=== PATIENT | male | born 1950 | race Caucasian/White ===

== ENCOUNTER → 2023-10-20 07:20 | Outpatient (REF) | payer MEDICARE, SELFPAY | LOC: DHCBC/DCA 07:20 | PROVIDERS: ATTENDING PHYSICIAN Internal Medicine; FAMILY PHYSICIAN Internal Medicine | DX: I50.21 Acute systolic (congestive) heart failure (principal) | CPT/HCPCS: 78452; 93017; A9500; J2785 ==

== ENCOUNTER → 2023-10-29 12:56 | Outpatient (REF) | payer MEDICARE, SELFPAY ==
--- NOTE | 2023-10-29 13:41 | CARDSERVLU ---
Echocardiogram with [facility] completed after protocol screening completed. Allergies verified.
Patent IV site: Right median antecubital 22 G PC inserted first attempt
IV site flushed with 0.9% NaCl pre and post administration.
Diluted bolus method utilized to enhance visualization of ventricular redman.
Total volume given: ___4_ mL
Patient tolerated all procedures well without complications.
Heplock D/C ed at 1340, site clear, no redness, no edema. Pressure held for few minutes as pt on anticoagulants, no bleeding, 2x2 applied and taped. Pt offers no complaints.
== END ==
LOC: RCS 12:56
PROVIDERS: ATTENDING PHYSICIAN Internal Medicine; FAMILY PHYSICIAN Internal Medicine
DX: I50.21 Acute systolic (congestive) heart failure (principal)
CPT/HCPCS: 93308; 93321; 93325; Q9950

== ENCOUNTER → 2023-11-16 12:48 | Outpatient (REF) | payer MEDICARE, SELFPAY | LOC: RAD 12:48 | PROVIDERS: ATTENDING PHYSICIAN Internal Medicine; FAMILY PHYSICIAN Internal Medicine | DX: R09.89 Other specified symptoms and signs involving the circulatory and respiratory systems (principal); I50.21 Acute systolic (congestive) heart failure; R06.09 Other forms of dyspnea | CPT/HCPCS: 93880 ==

== ENCOUNTER → 2023-11-20 06:37 | Outpatient (REF) | payer MEDICARE, SELFPAY | LOC: RAD 06:37 | PROVIDERS: ATTENDING PHYSICIAN Internal Medicine; FAMILY PHYSICIAN Internal Medicine | DX: R06.09 Other forms of dyspnea (principal); I35.0 Nonrheumatic aortic (valve) stenosis; F17.210 Nicotine dependence, cigarettes, uncomplicated | CPT/HCPCS: 76770 ==

== ENCOUNTER 2024-01-21 08:10 | Emergency (ER) | payer MEDICARE, SELFPAY ==
[2024-01-21 08:14] VITALS: BP 135/64
[2024-01-21 08:22] VITALS: BMI 21.9
--- NOTE | 2024-01-21 08:34 | ED.GENMED ---
History of Present Illness
General
Chief Complaint: Dizziness
Source: patient, records and spouse
Time Seen by Provider: 01/21/24 08:22
Travel History
Have you had any contact with someone who has COVID-19?: No
Do you have any symptoms of coronavirus? Fever > 100 degrees, chills, cough, shortness of breath, sore throat, loss of taste or smell, muscle aches, or headache?: No
History of Present Illness
History of Present Illness:
This patient is a 73-year-old male presents emergency department with complaints of feeling 'fuzzy' also described as 'dizzy' for the last month. This has been persistent and he came in today because he was frustrated with continued symptoms and
wanted to get checked out. He denies diplopia or visual changes, numbness, tingling, focal weakness, difficulty ambulating, a sense of movement or spinning, trouble swallowing. He says overall he just does not feel right and has difficulty further
specified. He denies associated chest pain or pressure, back pain, neck pain, headache. He denies palpitations. He notes that he does have dyspnea on exertion with stairs but he is unclear how new this is. He denies associated leg swelling,
fever, chills but he notes a recent episode of rhinorrhea and occasionally productive cough. He also notes a 15 pound weight loss over the last 6 months or so. He denies urinary symptoms.
Past History
Past History
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
ED Past Surgical History: Orthopedic (right heel fracture 2009) and Tonsilectomy
Social History
Tobacco: Smoker
Alcohol: Daily
Drug: None
Personal:
Living: with family
Family History
Family History: Other (reviewed and noncontributory)
Phy Exam
Physical Exam
Physical Exam:
GENERAL: Alert , in no apparent distress
EYE: pupils equal and reactive, no nystagmus, EOMI, no photophobia
NECK: Supple, no significant adenopathy.
ENT: o/p clr, mmm.
CARDIAC: Regular rate and rhythm .
LUNGS: Clear breath sounds bilaterally, no acute respiratory distress, no wheezes/rales/rhonchi
ABDOMEN: Soft, without focal tenderness, no r/g, no cvat
NEUROLOGICAL: Alert and oriented, no focal neuro deficits, NIH equal to 0, [id number] normal, motor 5 out of 5, sensory intact to light touch, cranial nerves II through XII intact
SKIN: Warm and dry, skin intact.
MUSCULOSKELETAL: No edema, well perfused.
PSYCH: Normal and appropriate interaction.
Course
Orders/Labs/Results
Orders:
Orders
01/21/24 08:33
Electrocardiogram (*1) Urgent
Reason for Study: Other
Other Reason for Exam: sepsis
CT Head W/o Iv Contrast Stat
Comment:
Reason For Exam: dizzy
Cardiac Monitoring- Treatment ONCE
EKG- Treatment ONCE
Urinalysis Reflex To Culture Urgent
CR Chest - 2 Views Urgent
Comment:
Reason For Exam: cough, duval
01/21/24 08:59
Alcohol Urgent
Complete Blood Count/With Diff Urgent
Comprehensive Metabolic Panel Urgent
Lactic Acid Q4H
Comment: CANCEL 2nd LACTIC ACID IF 1st LACTIC ACID IS LESS THAN 2
NT-proBNP Urgent
Troponin I Urgent
Blood Culture Q30M
KEVIN Source: Blood/Venous
Specimen Description:
01/21/24 09:00
Influenza A+B Rapid Molecular Urgent
KEVIN Source: Nasal Swab
Specimen Description:
01/21/24 09:01
Blood Culture Q30M
KEVIN Source: Blood/Venous
Specimen Description:
Abnormal Lab Results
01/21/24
08:59
RBC 4.69 L 10^6/uL
(4.70-6.10)
MCH 31.1 H pg
(27.0-31.0)
Absolute Neuts (auto) 8.2 H 10^3/uL
(1.4-6.5)
Absolute Lymphs (auto) 0.7 L 10^3/uL
(1.2-3.4)
Absolute Monos (auto) 0.9 H 10^3/uL
(0.1-0.6)
Neutrophils % 79.5 H %
(42.2-75.2)
Lymphocytes % 7.2 L %
(20.5-51.1)
Sodium 132 L mmol/L
(135-145)
Potassium 5.4 H mmol/L
(3.5-5.1)
BUN 21 H mg/dl
(9-20)
Glucose 280 H mg/dl
(70-99)
01/21/24 08:59
01/21/24 08:59
Vital Signs
Initial and Last Documented VS:
Initial Vital Signs
Temp Pulse Resp BP Pulse Ox
97.8 F 72 18 135/64 96
01/21/24 08:14 01/21/24 08:14 01/21/24 08:14 01/21/24 08:14 01/21/24 08:14
Last Documented Vital Signs
Temp Pulse Resp BP Pulse Ox
97.8 F 68 25 119/57 94
01/21/24 08:14 01/21/24 09:23 01/21/24 09:23 01/21/24 09:45 01/21/24 09:23
*Critical Care Note
Total Time (30-74mins, 75-104mins- exclusive of procedures): Not Applicable
Update Note
Update Note:
Patient presents to the Emergency Department with dizziness and feeling not right
Number and Complexity of Problems Addressed at the Encounter
� Chronic conditions affecting care:
� Acute Exacerbation and/or Progression of Chronic Illness:
� Differential Diagnosis includes: But not limited to UTI, pneumonia, typical ACS, heart failure, etc. etc.
Amount and/or Complexity of Data to be Reviewed and Analyzed
� I performed an independent evaluation of and my interpretation is:
EKG: Read by me, normal sinus rhythm, normal rate, normal axis, no acute ischemia
CT:1. No definite acute intracranial process.
2. Moderate diffuse volume loss and moderate leukoaraiosis.
3. Evidence of multiple areas of previous lacunar infarcts.
4. Moderate chronic sinus disease.
Xrays: Chest x-ray read by me no acute infiltrate, no pneumothorax, no acute abnormalities noted
Laboratory Studies: Generally unremarkable
Other:
� Review of other/old records reveals: Patient was admitted late last year with an acute exacerbation of heart failure noted to have mild aortic stenosis at that time as well as urinary retention requiring twice daily
self-catheterization. Echocardiogram October 2023 notes an EF of 55% and mild .
� Clinical information was obtained by an independent historian: who is at bedside
� Prescriptions/Medications Considered but not given:
� Further testing considered but not performed:
Risk of Complications and/or Morbidity or Mortality of Patient Management
� Social determinants of health affecting care:
� Discussion with other providers (PCP, Hospitalists, Consultants, etc):
� Escalation of care including admission/observation vs risk of discharge considered: 11:12 AM patient unable to provide a urine here, and I think suspicion for a urine related cause of his symptoms is very unlikely, he will have
tested as an outpatient. Patient is comfortable, no new complaints. No specific etiology for his complaints noted here with workup, aware of importance of follow-up and reasons return to the ER. He does not demonstrate signs or symptoms to
suggest ACS, PE, dissection, etc. etc. Very comfortable, no distress, normal respirations, etc. Given patient's chronicity of complaints including a 15 pound weight loss, he understands how critical a further evaluation as an outpatient is.
ED Attending Note
-
Portions of this chart may have been created with voice recognition software.� Occasional wrong word or��sound alike� substitutions may have occurred due to the inherent limitations of voice recognition software.
Discharge Plan
Departure
Patient Disposition: Home (Routine Discharge)
Date of Disposition: 01/21/24
Time of Disposition: 11:14
Patient with high blood pressure during this ER visit?: Yes
Condition: Good
Discharge Problem:
Dizziness
Instructions: Dizziness, Nonvertigo, (DC), BLOOD PRESSURE
Prescriptions:
No Action
enalapril maleate 20 MG tablet
20 mg PO BID
clopidogrel 75 MG tablet
75 mg PO QPM
atorvastatin 80 mg Tablet
80 mg PO QPM
tamsulosin 0.4 mg capsule
0.4 mg PO DAILY Qty: 90 3RF
spironolactone 25 mg Tablet
25 mg PO QPM
insulin NPH isoph U-100 human 100 unit/mL Suspension
26 unit SC DAILY
insulin NPH isoph U-100 human 100 unit/mL Suspension
16 unit SC QPM
metoprolol succinate 25 mg Tablet Extended Release 24 Hr
25 mg PO QPM
insulin lispro [Humalog U-100 Insulin] 100 unit/mL Solution
0 sliding scale dose SC DIRECTED PRN (Reason: diabetes)
Patient Comments:
01/21/2024, pt. uses this med. on a sliding scale ACPRN; pt. does not know what their sliding scale is.
ezetimibe 10 mg Tablet
10 mg PO DAILY
Patient Comments:
01/21/2024, pt. unsure if he is taking this med. or not; filled on 01/05/2024 for a 30-day supply.
dapagliflozin propanediol [Farxiga] 10 mg Tablet
10 mg PO QPM
Clear Eyes
1 drp BOTH EYES DAILYPRN PRN (Reason: eye irritation)
finasteride 5 mg tablet
5 mg PO QPM
Referrals:
Amelia Broussard MD [Family Provider] - Next open appointment
Activity Restrictions/Additional Instructions:
IF YOU DEVELOP CHEST PAIN OR PRESSURE, TROUBLE BREATHING, FEVER, VOMITING, CHANGE IN VISION, WEAKNESS OF AN ARM OR LEG, DIFFICULTY WALKING, OR OTHER WORRISOME SIGNS, PLEASE RETURN TO THE ER IMMEDIATELY.
Interventions
Interventions:
*Risk Screen - Suicide Last Done: 01/21/24 08:50
*General Assessment Last Done: 01/21/24 08:50
*Neglect/Abuse Screening Last Done: 01/21/24 08:50
*ED COVID-19 Vaccine History Last Done: 01/21/24 08:14
ED- Neurological Assessment Last Done: 01/21/24 09:15
ED- Cardiac Assessment Last Done: 01/21/24 09:15
Discharge Date and Time
Print Language: TUNISIAN
[2024-01-21 09:11] LABS: % Basophils 1.2 % (0-2); % Eosinophils 3.6 % (0-6); % Immature Granulocytes 0.2 % (0-0.5); % Lymphocytes 7.2 % (20.5-51.1); % Monocytes 8.3 % (1.7-9.3); % Neutrophils 79.5 % (42.2-75.2); Absolute Basophils 0.1 10^3/uL (0-0.2); Absolute Eosinophils 0.4 10^3/uL (0-0.7); Absolute Lymphocytes 0.7 10^3/uL (1.2-3.4); Absolute Monocytes 0.9 10^3/uL (0.1-0.6); Absolute Neutrophils 8.2 10^3/uL (1.4-6.5); Hematocrit 42.1 % (39.0-52.0); Hemoglobin 14.6 g/dL (13.0-18.0); Mean Corp Hgb Conc. 34.7 g/dL (33.0-37.0); Mean Corpuscular Hgb 31.1 pg (27.0-31.0); Mean Corpuscular Volume 89.8 fL (80.0-94.0); Mean Platelet Volume 9.4 fL (7.4-10.4); Nucleated Red Blood Cells % 0 % (-); Platelet Count 203 10^3/uL (130-400); Red Blood Cell Count 4.69 10^6/uL (4.70-6.10); Red Cell Dist. Width 13.9 % (11.5-14.5); White Blood Cell Count 10.3 10^3/uL (4.8-10.8)
[2024-01-21 09:22] LABS: ALT (SGPT) 44 U/L (0-50); AST (SGOT) 36 U/L (17-59); Albumin 4.3 g/dl (3.5-5.0); Alkaline Phosphatase 61 U/L (38-126); Blood Urea Nitrogen 21 mg/dl (9-20); Calcium 9.4 mg/dl (8.4-10.2); Carbon Dioxide 22 mmol/L (22-30); Chloride 102 mmol/L (98-107); Estimated Creatinine Clearance 58 ml/min; Glucose 280 mg/dl (70-99); Potassium 5.4 mmol/L (3.5-5.1); Sodium 132 mmol/L (135-145); Total Bilirubin 0.8 mg/dl (0.2-1.3); eGFR > 60.00
[2024-01-21 09:24] LABS: Lactic Acid 1.2 mmol/L (0.7-2.0)
[2024-01-21 09:27] LABS: Alcohol None Detected
[2024-01-21 09:29] LABS: NT-proBNP 717 pg/ml; Troponin I 0.014 ng/ml
--- NOTE | 2024-01-21 09:39 | PHANOTE ---
01/21/2024, [facility], spoke to pt. to obtain their med. history; pt. unsure if he is taking Ezetimibe 10 mg daily or not; filled on 01/05/2024 for a 30-day supply per pharmacy fill data.
[2024-01-21 09:45] VITALS: BP 119/57
[2024-01-21 10:00] VITALS: BP 117/56
[2024-01-21 11:00] VITALS: BP 128/59
== END 2024-01-21 11:32 | disposition home or self-care (01) ==
LOC: EMR 08:10
PROVIDERS: EMERGENCY PHYSICIAN Emergency Medicine; FAMILY PHYSICIAN Internal Medicine
DX: R42 Dizziness and giddiness (principal); F17.200 Nicotine dependence, unspecified, uncomplicated; I10 Essential (primary) hypertension
CPT/HCPCS: 99285; 70450; 71046; 80053; 82077; 83605; 83880; 84484; 85025; 87040; 87502; 93005

== ENCOUNTER → 2024-01-28 08:43 | Outpatient (REF) | payer MEDICARE, SELFPAY | LOC: RAD 08:43 | PROVIDERS: ATTENDING PHYSICIAN Internal Medicine Critical Care Medicine; FAMILY PHYSICIAN Internal Medicine | DX: R93.89 Abnormal findings on diagnostic imaging of other specified body structures (principal); J44.9 Chronic obstructive pulmonary disease, unspecified | CPT/HCPCS: 71250 ==

== ENCOUNTER 2024-01-30 13:30 | Inpatient (IN) | payer MEDICARE, SELFPAY ==
[2024-01-30] VITALS (10 sets, daily range): BP systolic 111–151; BP diastolic 48–81; BMI 20.1
--- NOTE | 2024-01-30 09:44 | ED.GENMED ---
History of Present Illness
General
Chief Complaint: Breathing Problem
Source: patient and family
Exam Limitations: none
Time Seen by Provider: 01/30/24 09:19
Nursing documentation reviewed up to this point in time: agreed with
Travel History
Have you had any contact with someone who has COVID-19?: No
Do you have any symptoms of coronavirus? Fever > 100 degrees, chills, cough, shortness of breath, sore throat, loss of taste or smell, muscle aches, or headache?: No
History of Present Illness
History of Present Illness:
73 y/o M with a history of insulin-dependent diabetes, hypertension, daily alcohol use, heart failure with a preserved EF, smoking who presents for shortness of breath over the last 3 or 4 days that is worse than usual. Patient was seen here on 5�2
and at that time was complaining of feeling fuzzy in his head/dizzy which was a symptom he had for over a month. He is not really eating well and has had some mild weight loss. Patient has had lower energy and dyspnea on exertion. His results
were really unremarkable, patient was discharged home. He had previously had an hospitalization in August 2023 for pneumonia/COPD and heart failure. He was followed by a patrol officer at that time and followed up in September. He was supposed to
have PFTs and a chest CT which he never got done because of a in the family. Patient has had an ongoing cough, he had it when he was in the ER on 5�2 but it seems much worse and so his called and make an follow-up appointment with the
patrol officer next week. In the meantime they did get the chest CT done a few days ago here. Patient is unaware of the results.
He has had worsening dyspnea over the last 3 days. His has been giving him nebulizer treatments a few times a day which helps mildly. He is not really bringing up sputum. He has not had a fever or chills, sore throat, nausea or vomiting. He
has a little diarrhea.
Patient is not having any pleuritic chest pain but is having some exertional dyspnea and really felt like the dyspnea is getting worse so that is why he is here. This reminds his of the time he had pneumonia
Patient has a pulse oximeter at home and has had readings in the low 90s
Past History
Past History
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
ED Past Surgical History: Orthopedic (right heel fracture 2009) and Tonsilectomy
Social History
Tobacco: Smoker
Alcohol: Daily
Drug: None
Personal:
Living: with family
Family History
Family History: Other (reviewed and noncontributory)
Review of Systems
Review of Systems
Allergies reviewed?: Yes
All Other Systems: Not applicable
Phy Exam
Physical Exam
Physical Exam:
GENERAL: Alert , in no apparent distress
EYE: pupils equal and reactive
NECK: Supple
ENT: o/p clr, mmm.
CARDIAC: Regular rate and rhythm .no edema
LUNGS: diminished throughout, no wheezing or rales but a wet sounding cough; + tachpnea 30s
ABDOMEN: Soft, without focal tenderness, no r/g, no cvat, normal bowel sounds
NEUROLOGICAL: Alert and oriented, no focal neuro deficits
SKIN: Warm and dry, skin intact.
MUSCULOSKELETAL: No edema, well perfused. neg marylou's sign
PSYCH: Normal and appropriate interaction.
Scores
Heart Failure Risk
Heart Failure Risk Score: Not Applicable
Course
Orders/Labs/Results
Orders:
Orders
01/30/24 09:33
Ipratropium/Albuterol Sulfate [Duoneb] 3 ml INH R NOW STA
01/30/24 09:34
Electrocardiogram (*1) Urgent
Reason for Study: Shortness of Breath
EKG- Treatment ONCE
CR Chest - 2 Views Urgent
Comment:
Reason For Exam: sob
01/30/24 10:09
Basic Metabolic Panel Urgent
COVID-19 Antigen Urgent
Source: Nasal Swab
Complete Blood Count/With Diff Urgent
NT-proBNP Urgent
Troponin I Urgent
Influenza A+B Rapid Molecular Urgent
EKVIN Source: Nasal Swab
Specimen Description:
01/30/24 11:24
Azithromycin 500 mg/250 ml [Zithromax Infusion] 500 mg in 250 ml IV NOW
CefTRIAXone [Rocephin] 1,000 mg IV NOW STA
Abnormal Lab Results
01/30/24
10:09
WBC 16.8 H 10^3/uL
(4.8-10.8)
Abs Immat Gran (auto) 0.1 H 10^3/uL
(0-0.05)
Absolute Neuts (auto) 14.2 H 10^3/uL
(1.4-6.5)
Absolute Lymphs (auto) 0.8 L 10^3/uL
(1.2-3.4)
Absolute Monos (auto) 1.4 H 10^3/uL
(0.1-0.6)
Neutrophils % 84.7 H %
(42.2-75.2)
Lymphocytes % 4.9 L %
(20.5-51.1)
Sodium 134 L mmol/L
(135-145)
BUN 28 H mg/dl
(9-20)
01/30/24 10:09
01/30/24 10:09
Vital Signs
Initial and Last Documented VS:
Initial Vital Signs
Temp Pulse Resp BP Pulse Ox
97.9 F 85 22 120/62 91
01/30/24 09:01 01/30/24 09:01 01/30/24 09:01 01/30/24 09:01 01/30/24 09:01
Last Documented Vital Signs
Temp Pulse Resp BP Pulse Ox
97.9 F 98 17 129/60 88
01/30/24 09:01 01/30/24 12:00 01/30/24 12:00 01/30/24 12:00 01/30/24 12:00
MDM/Problems Addressed
Differential Diagnosis Includes:
pna, copd
MDM/Problems Addressed:
73 y/o M smoker, alcohol abuse, NIDDM, mild chf not on lasix; 10 day cough, worse with sob x 3 days, pulse ox at home 90% on RA no h/o O2; no chest pain; had outpatient chest ct a few days ago suggestive of opacity LLL; today's pulse o 89% on RA
for me, put on 2L, tachypneic, diminished but no wheezes, + cough; wbc 16, cxr indep [id number] by me looks progressed with LLL pna;
will admit given ongonig hypoxia and tahcypnea
iv abx ordered
*Critical Care Note
Total Time (30-74mins, 75-104mins- exclusive of procedures): Not Applicable
ED Attending Note
-
Portions of this chart may have been created with voice recognition software.� Occasional wrong word or��sound alike� substitutions may have occurred due to the inherent limitations of voice recognition software.
Discharge Plan
Departure
Patient Disposition: Admit
Date of Disposition: 01/30/24
Time of Disposition: 11:25
Admit to: Med/Surg
Presentation/result/management discussed w/ accepting MD/DO: Hospitalist
Condition: Fair
Covid-19: Not Applicable
Discharge Problem:
Hypoxia, Pneumonia
Prescriptions:
No Action
enalapril maleate 20 MG tablet
20 mg PO BID
clopidogrel 75 MG tablet
75 mg PO QPM
atorvastatin 80 mg Tablet
80 mg PO QPM
tamsulosin 0.4 mg capsule
0.4 mg PO DAILY Qty: 90 3RF
spironolactone 25 mg Tablet
25 mg PO QPM
insulin NPH isoph U-100 human 100 unit/mL Suspension
26 unit SC DAILY
insulin NPH isoph U-100 human 100 unit/mL Suspension
16 unit SC QPM
metoprolol succinate 25 mg Tablet Extended Release 24 Hr
25 mg PO QPM
insulin lispro [Humalog U-100 Insulin] 100 unit/mL Solution
0 sliding scale dose SC DIRECTED PRN (Reason: diabetes)
Patient Comments:
01/21/2024, pt. uses this med. on a sliding scale ACPRN; pt. does not know what their sliding scale is.
ezetimibe 10 mg Tablet
10 mg PO DAILY
Patient Comments:
01/21/2024, pt. unsure if he is taking this med. or not; filled on 01/05/2024 for a 30-day supply.
dapagliflozin propanediol [Farxiga] 10 mg Tablet
10 mg PO QPM
Clear Eyes
1 drp BOTH EYES DAILYPRN PRN (Reason: eye irritation)
finasteride 5 mg tablet
5 mg PO QPM
Referrals:
Amelia Broussard MD [Family Provider] -
Interventions
Interventions:
*Risk Screen - Suicide Last Done: 01/30/24 09:01
*General Assessment Last Done: 01/30/24 09:01
*Neglect/Abuse Screening Last Done: 01/30/24 09:01
ED- Fall Risk Assessment Last Done: 01/30/24 09:49
*ED COVID-19 Vaccine History Last Done: 01/30/24 09:49
ED- Cardiac Assessment Last Done: 01/30/24 09:49
ED- Pulmonary Assessment Last Done: 01/30/24 09:49
Discharge Date and Time
Print Language: TAJIK
[2024-01-30] MEDS: DUONEB 3 ML INH (10:11)
[2024-01-30 10:22] LABS: % Basophils 0.5 % (0-2); % Eosinophils 0.8 % (0-6); % Immature Granulocytes 0.5 % (0-0.5); % Lymphocytes 4.9 % (20.5-51.1); % Monocytes 8.6 % (1.7-9.3); % Neutrophils 84.7 % (42.2-75.2); Absolute Basophils 0.1 10^3/uL (0-0.2); Absolute Eosinophils 0.1 10^3/uL (0-0.7); Absolute Immature Granulocytes 0.1 10^3/uL (0-0.05); Absolute Lymphocytes 0.8 10^3/uL (1.2-3.4); Absolute Monocytes 1.4 10^3/uL (0.1-0.6); Absolute Neutrophils 14.2 10^3/uL (1.4-6.5); Hematocrit 43.2 % (39.0-52.0); Hemoglobin 14.8 g/dL (13.0-18.0); Mean Corp Hgb Conc. 34.3 g/dL (33.0-37.0); Mean Corpuscular Hgb 30.9 pg (27.0-31.0); Mean Corpuscular Volume 90.2 fL (80.0-94.0); Mean Platelet Volume 8.7 fL (7.4-10.4); Nucleated Red Blood Cells % 0 % (-); Platelet Count 340 10^3/uL (130-400); Red Blood Cell Count 4.79 10^6/uL (4.70-6.10); Red Cell Dist. Width 13.1 % (11.5-14.5); White Blood Cell Count 16.8 10^3/uL (4.8-10.8)
[2024-01-30 10:35] LABS: COVID-19 Antigen Negative (Negative)
[2024-01-30 10:50] LABS: NT-proBNP 876 pg/ml; Troponin I 0.014 ng/ml
[2024-01-30 11:00] LABS: Blood Urea Nitrogen 28 mg/dl (9-20); Calcium 9.7 mg/dl (8.4-10.2); Carbon Dioxide 23 mmol/L (22-30); Chloride 106 mmol/L (98-107); Estimated Creatinine Clearance 65 ml/min; Glucose 76 mg/dl (70-99); Sodium 134 mmol/L (135-145); eGFR > 60.00
[2024-01-30] MEDS: ROCEPHIN 1000 MG IV (11:45)
[2024-01-30] MEDS: ZITHROMAX INFUSION 250 IV (11:45)
--- NOTE | 2024-01-30 12:47 | HPS.HSE ---
Family Physician
-
Family Physician: Amelia Broussard
Chief Complaint
-
Cough and shortness of breath
History of Present Illness
73 y/o man with a history of:
insulin-dependent diabetes,
hypertension,
daily alcohol use,
heart failure with a preserved EF,
smoking
presents with shortness of breath for the last 3 or 4 days that is worse than usual chronic cough. On 01/21/24 he came to the ER and was complaining of feeling fuzzy, dizzy which he had for over a month, not really eating well, mild weight loss,
lower energy and dyspnea on exertion. His visit was unremarkable, and he was discharged home. He had a previous hospitalization in August 2023 for pneumonia/COPD and heart failure. Since that time he has had an ongoing cough, he had it when he
was in the ER on 01/21/24, but it seemed much worse today. His has been giving him nebulizer treatments a few times a day which helps mildly. He denies fever or chills, sore throat, nausea or vomiting. He has had mild diarrhea. He is having
exertional dyspnea. At the time of my interview he was flat on bed and had occasional coughing.
Medical History
Past Medical History
Past Medical History: Reports Other
Additional Past Medical History:
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
GERD,
essential HTN,
Hypercholesterolemia,
IDDM,
Peptic ulcer disease,
colonic polyposis
erectile dysfunction,
clavicular fracture age 6
right heel fracture 2009
Tonsilectomy
daily alcohol
smoking
Past Surgical History: Reports Other
Additional Past Surgical History:
See above
Social History
Tobacco: Smoker
Alcohol: Daily
Personal:
Living: With Family
Family History
Family History: Not pertinent
Allergies / Home Medications
Allergies reflects when Allergies were last updated in [employer].
Home Medications with original date entered in [employer]
Allergy/Medication List:
Allergies
Allergy/AdvReac Type Severity Reaction Status Date / Time
No Known Allergies Allergy Verified 01/30/24 09:00
Home Medications
enalapril maleate 20 mg tablet 20 mg PO BID Blood pressure 01/30/15
clopidogrel 75 mg tablet 75 mg PO QPM Blood Clot Prevention/Tx 05/26/23
atorvastatin 80 mg tablet 80 mg PO QPM High Cholesterol 08/19/23
tamsulosin 0.4 mg capsule 0.4 mg PO DAILY Urinary issue #90 caps 08/28/23
Clear Eyes 1 drp BOTH EYES DAILYPRN PRN eye irritation 01/21/24
dapagliflozin propanediol 10 mg tablet (Farxiga) 10 mg PO QPM 01/21/24
ezetimibe 10 mg tablet 10 mg PO DAILY 01/21/24
finasteride 5 mg tablet 5 mg PO QPM Urinary issue 01/21/24
insulin NPH isoph U-100 human 100 unit/mL subcutaneous suspension 16 unit SC QPM 01/21/24
insulin NPH isoph U-100 human 100 unit/mL subcutaneous suspension 26 unit SC DAILY 01/21/24
insulin lispro 100 unit/mL subcutaneous solution (Humalog U-100 Insulin) 0 sliding scale dose SC DIRECTED PRN diabetes 01/21/24
metoprolol succinate 25 mg tablet,extended release 24 hr 25 mg PO QPM 01/21/24
spironolactone 25 mg tablet 25 mg PO QPM 01/21/24
Review of Systems
-
History Source: Patient
A 12 point ROS was completed and negative except as noted: Yes
Physical Exam
Vital Signs
Vital Signs
Temp Pulse Resp BP Pulse Ox
97.9 F 98 17 129/60 88
01/30/24 09:01 01/30/24 12:00 01/30/24 12:00 01/30/24 12:00 01/30/24 12:00
Physical Exam
General: Well Developed, Well Nourished, No Apparent Distress and Conversant
HEENT: NormoCephalic, Anicteric and Moist mucous membranes
Respiratory: Rales, Rhonchi and Crackles
Cardiac: S1/S2 and Regular Rhythm
GI: Soft, Non Tender and Non Distended
Musculoskeletal: No Clubbing, No Cyanosis and No Edema
Skin: Warm and Dry; No Rash or Jaundice
Neuro: Awake, Alert, Oriented and AO x 3
Psych: Calm
Laboratory Results
-
01/30/24 10:09
01/30/24 10:09
Laboratory Results
Total Bilirubin Cancelled 01/30/24 10:09
AST Cancelled 01/30/24 10:09
ALT Cancelled 01/30/24 10:09
Alkaline Phosphatase Cancelled 01/30/24 10:09
Troponin I 0.014 ng/ml 01/30/24 10:09
Data Reviewed
-
Lab Data: Labs Reviewed by me
Impression/Plan
-
IMPRESSION:
73 man with LLL PNA seen on outpatient CT and CXR. Significant findings:
Left lower lobe opacities suspicious for pneumonia as seen on the chest CT from 01/28/2024.
WBC 16.8
Na 134
BUN/Creat 28/0.9
PLAN:
1. LLL PNA - complicated by h/o CHF (preserved EF), and likely COPD to some extent given smoking.
Antibiotics per protocol
COPD treatement - nebs and steroids
Oxygen as needed
Outpt screen for lung cancer, per primary care screening guidelines, at recommended schedule, highly recommended.
2. Na of 134 - likely hypovolemic hyponatremia
IV fluids
Recheck in am
3. BUN/Creat > 20, likely from poor po intake
IV saline
Recheck in am
4. Abnormal ECG, and risk for PR
Telemetry
JAZMIN serial troponins
5. IDDM - continue home insulin regimen
6. Daily self cath need, BID
Continue while in the hospital
Full code
VCD for DVTp
--- NOTE | 2024-01-30 13:31 | PHANOTE ---
01/30/2024, med rec tech, spoke to pt. to obtain his med. history; per pt., he is unsure if he is taking Ezetimibe 10 mg daily or not; last filled on 01/05/2024 for a 30-day supply.
--- NOTE | 2024-01-30 15:24 | CM ---
Addendum entered by Devin Amor 01/30/24 16:19:
CM consult to provide the pt with substance abuse resources. Pt expressed his unhappiness talking about is. Pt denied having drinking problem, declined any resources. Pt stated 'I am having two beers per day and is not your business'.
Original Note:
CM following re: discharge planning.
Reviewed pt's chart, met with pt in ED.
Pt is a 76 year old male, arrived to ED with berthing problems. Pt is aware he will be admitted to the hospital.
Pt reports he lives with spouse in a 2SH, 1 steps to enter, has 2 children and they live out of state: [place] and [facility]. Pt described himself as independent in all areas [employer], drives. No DE, VN or SNF history.
PCP: Amelia Broussard
[facility]
D/C plan: home with anticipated no needs. Spouse to transport at discharge.
CM will follow with discharge plan updates as hospitalization progresses
[2024-01-30 17:01] LABS: Glucose - Point of Care 105 mg/dl (70-99)
[2024-01-30] MEDS: NOVOLOG FLEXPEN-HIGH RESISTANCE SC (18:09)
[2024-01-30] MEDS: PLAVIX 75 MG PO (18:10)
[2024-01-30] MEDS: ALDACTONE 25 MG PO (18:10)
[2024-01-30] MEDS: FARXIGA 10 MG PO (18:10)
[2024-01-30] MEDS: DECADRON 8 MG IV (18:10)
[2024-01-30] MEDS: LIPITOR 80 MG PO (18:10)
[2024-01-30] MEDS: PROSCAR 5 MG PO (18:10)
[2024-01-30] MEDS: TOPROL XL 25 MG PO (18:11)
[2024-01-30] MEDS: NSS 1000 IV (18:16)
--- NOTE | 2024-01-30 18:25 | PTCARENOTE ---
rec'd pt from ER. walked from stretcher to bed. on 4Low is BEAR. denies pain. NSS started at 100ml/hr. call soto in reach
[2024-01-30 19:30] LABS: Glucose - Point of Care 250 mg/dl (70-99)
[2024-01-30] MEDS: HUMULIN N KWIKPEN 16 UNITS SC (20:17)
[2024-01-30] MEDS: VASOTEC 20 MG PO (20:20)
[2024-01-30] MEDS: THIAMINE INJECTION 200 MG IV (20:21)
[2024-01-30] MEDS: MUCINEX 600 MG PO (20:21)
[2024-01-30 22:37] LABS: Glucose - Point of Care 213 mg/dl (70-99)
[2024-01-31] VITALS (7 sets, daily range): BP systolic 107–132; BP diastolic 54–98; PULSE 68–73; O2SAT 90
[2024-01-31] MEDS: DECADRON 8 MG IV ×2 (00:48→05:22)
[2024-01-31] MEDS: NSS 1000 IV (05:22)
[2024-01-31 07:49] LABS: Glucose - Point of Care 204 mg/dl (70-99)
[2024-01-31 07:52] LABS: Hematocrit 43.5 % (39.0-52.0); Hemoglobin 14.7 g/dL (13.0-18.0); Mean Corp Hgb Conc. 33.8 g/dL (33.0-37.0); Mean Corpuscular Hgb 30.6 pg (27.0-31.0); Mean Corpuscular Volume 90.6 fL (80.0-94.0); Mean Platelet Volume 9.1 fL (7.4-10.4); Platelet Count 372 10^3/uL (130-400); Red Cell Dist. Width 13.2 % (11.5-14.5); White Blood Cell Count 17.1 10^3/uL (4.8-10.8)
[2024-01-31] MEDS: NOVOLOG FLEXPEN-HIGH RESISTANCE 4 UNITS SC ×2 (08:00→17:22)
[2024-01-31] MEDS: HUMULIN N KWIKPEN 26 UNITS SC (08:05)
[2024-01-31 08:18] LABS: Blood Urea Nitrogen 27 mg/dl (9-20); Calcium 9.6 mg/dl (8.4-10.2); Carbon Dioxide 18 mmol/L (22-30); Chloride 106 mmol/L (98-107); Estimated Creatinine Clearance 65 ml/min; Glucose 200 mg/dl (70-99); Magnesium 2.3 mg/dl (1.6-2.3); Sodium 138 mmol/L (135-145); eGFR > 60.00
[2024-01-31] MEDS: ZETIA 10 MG PO (08:24)
[2024-01-31] MEDS: FOLVITE 1 MG PO (08:24)
[2024-01-31] MEDS: FLOMAX 0.400000000000000022 MG PO (08:24)
[2024-01-31] MEDS: MUCINEX 600 MG PO ×2 (08:24→19:59)
[2024-01-31] MEDS: THIAMINE INJECTION 200 MG IV (08:24)
[2024-01-31] MEDS: VASOTEC 20 MG PO ×2 (08:25→19:58)
[2024-01-31 10:51] LABS: Glucose - Point of Care 180 mg/dl (70-99)
[2024-01-31 11:17] LABS: Glycohemoglobin (HgbA1c) 8.5 % (4.0-5.6)
[2024-01-31] MEDS: NOVOLOG FLEXPEN-HIGH RESISTANCE 2 UNITS SC (11:19)
--- NOTE | 2024-01-31 11:39 | W.PN.HOSP.TC ---
Today's Communication/Plan
-
see outlined plan
Assessment / Plan
Assessment / Plan
Assessment:
LLL PNA
Acute hypoxic respiratory insufficiency on 4L NC
- CT 01/27: Parenchymal opacities and tree-in-bud nodules in the left lower lobe and to a lesser degree in the right upper lobe are favored to be infectious/inflammatory. More confluent left lower lobe opacity measuring 3.3 cm is likely also
infectious/inflammatory but an underlying pulmonary neoplasm would be difficult to completely exclude and follow-up imaging after treatment is recommended.
- continue Rocephin, Azithromycin day 1
- wean O2 as able
Suspected Acute COPD exacerbation
- continue IV Decadron, reduce to 4mg 8h
- nebs scheduled and prn
- continue mucolytic measures
- consult Pulm Thursday (follows with Festus)
Hyponatremia, acute
- improved
Hx of Cardiomyopathy
- Echo 10/25: EF 55%, mild
- continue BB/Aldactone
- OP Cards follow up
Urinary retention likely from enlarged prostate
- urology consulted
- started on Flomax/Proscar
- patient is agreeable to performing self intermittent urethral/bladder catheterization on a prn basis
Alcohol use disorder
- No signs of withdrawal currently
- Monitor for alcohol withdrawal
Type 2 diabetes
- continue SSI (high in setting of steroids)
- continue NPH BID
- continue Farxiga
- A1c is 8.5%
Essential HTN
- continue MAT/BB/Aldactone
Hypercholesterolemia
- statin/zetia
GERD/peptic ulcer
Erectile dysfunction
History of right pontine CVA in 2014
- continue Plavix
Active smoker
- nicotine patch
DVT ppx: SC Heparin
Code: Full
Anticipated Discharge: > 48 hours
Subjective/Interval History
-
Date of Service: January 31, 2024
SOB improving
denies cp, no fevers
Objective Data
-
Labs:
Laboratory Results
01/31/24
06:48
WBC 17.1 H
Hgb 14.7
Hct 43.5
Plt Count 372
Sodium 138
Potassium 5.0
Chloride 106
Carbon Dioxide 18 L
BUN 27 H
Creatinine 0.9
Glucose 200 H
Calcium 9.6
Vital Signs:
Vital Signs
Temp Pulse Resp BP Pulse Ox
98.6 F 61 28 124/60 95
01/31/24 07:06 01/31/24 08:25 01/31/24 07:06 01/31/24 08:25 01/31/24 07:06
I&O
01/30/24 01/31/24 02/01/24
06:59 06:59 06:59
Intake Total 480 / 480
Output Total 800 / 800
Balance -320 / -320
Physical Exam
-
General: No Apparent Distress
Respiratory: Wheezes and Rhonchi
Cardiac: Regular Rhythm and S1/S2
Musculoskeletal: No Edema
Neuro: AO x 3
Hematologic / Lymphatic: No Lymphadenopathy
Psych: Calm
Data Reviewed
-
Total Time Spent with Patient (in minutes): 42
Labs: Labs Reviewed by me
[2024-01-31] MEDS: STERILE WATER FOR INJECTION 10 ML IV (12:36)
[2024-01-31] MEDS: ROCEPHIN 1000 MG IV (12:36)
[2024-01-31] MEDS: ZITHROMAX INFUSION 250 IV (12:41)
[2024-01-31] MEDS: DECADRON IV ×2 (13:20→13:26)
[2024-01-31] MEDS: DECADRON 4 MG IV ×2 (16:37→23:05)
[2024-01-31 16:43] LABS: Glucose - Point of Care 206 mg/dl (70-99)
[2024-01-31] MEDS: HUMULIN N KWIKPEN 16 UNITS SC (17:22)
[2024-01-31] MEDS: LIPITOR 80 MG PO (17:23)
[2024-01-31] MEDS: ALDACTONE 25 MG PO (17:23)
[2024-01-31] MEDS: PLAVIX 75 MG PO (17:23)
[2024-01-31] MEDS: PROSCAR 5 MG PO (17:23)
[2024-01-31] MEDS: FARXIGA 10 MG PO (17:24)
[2024-01-31] MEDS: TOPROL XL 25 MG PO (17:24)
[2024-01-31] MEDS: THIAMINE INJECTION IV ×2 (19:59→20:06)
[2024-01-31 21:33] LABS: Glucose - Point of Care 260 mg/dl (70-99)
[2024-02-01 03:00] VITALS: BP 106/57
[2024-02-01 06:00] VITALS: BMI 20.3
[2024-02-01 07:00] VITALS: BP 127/75
[2024-02-01 07:28] LABS: Glucose - Point of Care 177 mg/dl (70-99)
[2024-02-01] MEDS: NOVOLOG FLEXPEN-HIGH RESISTANCE 2 UNITS SC ×2 (07:57→18:23)
[2024-02-01] MEDS: HUMULIN N KWIKPEN 26 UNITS SC (07:58)
[2024-02-01] MEDS: ZETIA 10 MG PO (08:02)
[2024-02-01] MEDS: FOLVITE 1 MG PO (08:02)
[2024-02-01] MEDS: THIAMINE INJECTION 200 MG IV (08:02)
[2024-02-01] MEDS: FLOMAX 0.400000000000000022 MG PO (08:02)
[2024-02-01] MEDS: VASOTEC 20 MG PO ×2 (08:02→20:20)
[2024-02-01] MEDS: DECADRON 4 MG IV ×2 (08:02→17:41)
[2024-02-01] MEDS: MUCINEX 600 MG PO ×2 (08:02→20:21)
[2024-02-01 08:04] LABS: Hematocrit 43.4 % (39.0-52.0); Hemoglobin 14.6 g/dL (13.0-18.0); Mean Corp Hgb Conc. 33.6 g/dL (33.0-37.0); Mean Corpuscular Hgb 30.6 pg (27.0-31.0); Mean Platelet Volume 9.3 fL (7.4-10.4); Platelet Count 388 10^3/uL (130-400); Red Blood Cell Count 4.77 10^6/uL (4.70-6.10); Red Cell Dist. Width 13.3 % (11.5-14.5); White Blood Cell Count 25.4 10^3/uL (4.8-10.8)
[2024-02-01 08:22] LABS: Blood Urea Nitrogen 34 mg/dl (9-20); Calcium 9.5 mg/dl (8.4-10.2); Carbon Dioxide 22 mmol/L (22-30); Chloride 105 mmol/L (98-107); Estimated Creatinine Clearance 65 ml/min; Glucose 183 mg/dl (70-99); Potassium 5.1 mmol/L (3.5-5.1); Sodium 136 mmol/L (135-145); eGFR > 60.00
[2024-02-01 11:00] VITALS: BP 126/57
[2024-02-01 11:26] LABS: Glucose - Point of Care 262 mg/dl (70-99)
--- NOTE | 2024-02-01 12:17 | CON.PUL ---
Addendum entered and electronically signed by Aura Hernandez DO 02/01/24 16:46:
Total care provided patient: 75 mins which includes review of prior visits, outpatient notes, care coordination via TT with interventional team and hospitalist service.
Original Note:
Consultation
Consultation Request
Date/Time Consultation Requested: 02/01/24
Date/Time Consultation Performed: 02/01/24
Performing Provider: Mary
Reason for Consultation: Abnormal CT
Medical History
-
History of Present Illness:
73 year old man with a history of IDDM, HTN, chronic ETOH use, HFpEF, smoker, presenting to ER for SOB for the past 3-4 days with chronic cough complaints. Noted to have abnormalities on CT chest obtained with new 3.3 cm LLL infiltrate vs mass
new from prior. Sputum culture is negative.
He had been seen at ER on 01/21/24 with dizziness, decreased PO intake, weight loss, fatigue and BEAR. Was discharged home.
He had a previous hospitalization in August 2023 for pneumonia/COPD and heart failure. CT chest at that time on 08/24/23 showing abnormal nodular/interstitial pattern.
Had been seen by Dr Lynch in the past, felt to have COPD. No prior PFTs for review
Smoker, up to 1PPD for 50 years, ongoing. Has cut down to 1/4 PPD. Denies lung cancer history in his family.
Never had yearly screening
There is history of chronic ETOH use as well (3-4 drinks/day).
Past Medical History
Past Medical History: Other (as noted above)
Social History
Tobacco: Smoker
Alcohol: Daily
Drug: None
Family History
Family History: Reviewed & Not Pertinent
Allergies / Home Medications
Allergies
Allergy/AdvReac Type Severity Reaction Status Date / Time
No Known Allergies Allergy Verified 01/30/24 09:00
Home Medications
�Medication �Instructions �Recorded �Confirmed �Last Taken �Type
enalapril maleate 20 mg tablet 20 mg PO BID Blood pressure 01/30/15 01/30/24 01/30/24 History
clopidogrel 75 mg tablet 75 mg PO QPM Blood Clot 05/26/23 01/30/24 01/29/24 History
Prevention/Tx
atorvastatin 80 mg tablet 80 mg PO QPM High Cholesterol 08/19/23 01/30/24 01/29/24 History
tamsulosin 0.4 mg capsule 0.4 mg PO DAILY Urinary issue #90 08/28/23 01/30/24 01/30/24 Rx
caps
Clear Eyes 1 drp BOTH EYES DAILYPRN PRN dry 01/21/24 01/30/24 01/21/24 History
eyes
dapagliflozin propanediol 10 mg 10 mg PO QPM 01/21/24 01/30/24 01/29/24 History
tablet (Farxiga)
ezetimibe 10 mg tablet 10 mg PO DAILY 01/21/24 01/21/24 Unknown History
finasteride 5 mg tablet 5 mg PO DAILY Urinary issue 01/21/24 01/30/24 01/30/24 History
insulin NPH isoph U-100 human 100 16 unit SC QPM 01/21/24 01/30/24 01/29/24 History
unit/mL subcutaneous suspension
insulin NPH isoph U-100 human 100 26 unit SC DAILY 01/21/24 01/30/24 01/30/24 History
unit/mL subcutaneous suspension
insulin lispro 100 unit/mL 0 sliding scale dose SC 01/21/24 01/30/24 5 Days Ago History
subcutaneous solution (Humalog DIRECTED PRN diabetes ~01/25/24
U-100 Insulin)
metoprolol succinate 25 mg 25 mg PO QPM 01/21/24 01/30/24 01/29/24 History
tablet,extended release 24 hr
spironolactone 25 mg tablet 25 mg PO QPM 01/21/24 01/30/24 01/29/24 History
Mucinex 2 tab PO BID 01/30/24 01/30/24 01/30/24 History
Review of Systems
-
History Source: Patient
All other systems: Negative unless noted
Vitals / Labs / Diagnostic Testing
Vital Signs
Temp Pulse Resp BP Pulse Ox
97.7 F 54 12 127/75 91
02/01/24 07:00 02/01/24 08:02 02/01/24 07:00 02/01/24 08:02 02/01/24 07:00
Lab Data
02/01/24 07:00
02/01/24 07:00
Microbiology
01/31/24 09:46 Sputum Respiratory Culture - Preliminary
Usual Respiratory Elizabeth
01/31/24 09:46 Sputum Gram Stain - Preliminary
01/30/24 10:09 Nasal Swab Influenza Types A & B (JEFF) - Final
Negative for Influenza A & B, NAAT
Negative results must be combined with clinical observations
and patient history.
Nucleic Acid Amplification test (NAAT)performed on the
[email or web address] platform.
Diagnostic Testing:
Physical Exam
-
HEENT: Normocephalic, Anicteric and Moist Mucous Membranes
Cardiovascular: S1/S2 and Regular Rhythm
Respiratory: Rales (bilateral/basilar) and Non-Labored Respirations
GI: Soft, Non Distended and Non Tender
Neurology: Awake, Alert, Oriented, AO x 3 and No Motor Deficits
Skin: Warm, Dry and Good Color
General: Comfortable and Other (NAD)
Assessment
-
73 y/o man with a history of IDDM, HTN, chronic ETOH use, HFpEF, smoker, presenting to ER for SOB for the past 3-4 days with chronic cough complaints. Noted to have abnormalities on CT chest obtained with new 3.3 cm LLL infiltrate vs mass new
from prior. Sputum culture is negative.
He had been seen at ER on 01/21/24 with dizziness, decreased PO intake, weight loss, fatigue and BEAR. Was discharged home.
He had a previous hospitalization in August 2023 for pneumonia/COPD and heart failure. CT chest at that time on 08/24/23 showing abnormal nodular/interstitial pattern. We are consulted for eval.
Acute hypoxemic resp failure
Bilateral infiltrates
New 3.3cm LLL opacity
SOB/chronic cough
Tobacco use disorder, >50 pack years, ongoing
Leukocytosis
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
Diabetes mellitus, type 1
GERD
HTN
Renal insufficiency
HLD
Current smoker, since 20s, 1/4PPD now but at heaviest up to 1 PPD, >50+ years
Chronic ETOH use
Right interarticular fracture lateral tibial plateau-immobilizer
History of gastritis, gastric ulcers-ppi (2012)
Broken collar bone-6 yrs old
Fracture rt heel (2009)
R pontine cva-hospital, asa, statin 03/09/2015
History of pneumonia
Colon polyps
Tonsillectomy() 10/22/2007
Right interarticular fracture lateral tibial plateau (2010) 09/24/2011
[facility]- post covid syndrome 06/01/23
[facility]- pneumonia 08/2023
Plan
Hypoxemia noted on arrival, O2 chely 86% on RA
Not known to be on home O2 as outpatient
Prior history of lung disease is suspected including COPD
Had been seen by Dr Lynch in the past, felt to have COPD. No prior PFTs for review
Smoker, up to 1PPD for 50 years, ongoing. Has cut down to 1/4 PPD. Denies lung cancer history in his family.
Never had yearly screening
Suspect patient has underlying COPD, possible new LLL mass
CXR/CT imaging reviewed, will arrange for procedure while inpatient, eval for ION vs BAL
He was agreeable
At risk for lung cancer given smoking history
I will obtain baseline testing for COPD while inpatient
ECHO results reviewed (preserved EF on recent ECHO)
Prior testing was reduced 40-45% with stage II DD.
proBNP neg on arrival
Will need outpatient pulmonary evaluation in our office
Reviewed with patient
Risk factors assessed for underlying sleep disordered breathing also noted, recommend outpatient PSG/sleep evaluation
Smoking history noted
Smoking cessation encouraged
There is history of chronic ETOH use as well (3-4 drinks/day)
Observe for signs of w/d
We will follow
Diagnostic Data
CXR 08-22-2023: Bilateral pneumonia, which appears slightly increased from radiograph of August 19, 2023. Minimal bilateral pleural effusions.
CT Chest 01/28/24- Parenchymal opacities and tree-in-bud nodules in the left lower lobe and to a lesser degree in the right upper lobe are favored to be infectious/inflammatory. More confluent left lower lobe opacity measuring 3.3 cm is likely also
infectious/inflammatory but an underlying pulmonary neoplasm would be difficult to completely exclude and follow-up imaging after treatment is recommended.
CT Chest w/o Contrast 08-24-2023: Small left pleural effusion with small to moderate right pleural effusion. Bilateral patchy parenchymal airspace opacities, compatible with multifocal pneumonia. These have probably increased compared to chest
radiograph of August 22, 2023. Minimal pericardial effusion, unlikely to be clinically significant. Aortic valvular calcification present, which appears moderate. Please correlate with any clinical signs or symptoms that would suggest aortic
stenosis.
ECHO 10/29/23- Normal biventricular size and global systolic function. LV ejection fraction is 55% by Rosas's method of discs. Apical anteroseptal and apical akinesis. No evidence of thrombus. Mild aortic stenosis. Compared to previous echo on
09/12, global and regional wall motion has improved. Prior EF was reported at 40 to 45%, inferolateral and lateral wall motion abnormality has improved. Apical akinesis persists. Otherwise, the findings are similar.
ECHO 08/24/23: LVEF 40-45% with stage II diastolic dysfunction. Normal RV size and systolic function. Mild . Apical akinesis with hypokinetic inferolateral/lateral redman.
[2024-02-01] MEDS: NOVOLOG FLEXPEN-HIGH RESISTANCE 7 UNITS SC (13:07)
[2024-02-01] MEDS: STERILE WATER FOR INJECTION 10 ML IV (13:54)
[2024-02-01] MEDS: ROCEPHIN 1000 MG IV (13:54)
[2024-02-01] MEDS: ZITHROMAX INFUSION 250 IV (13:55)
[2024-02-01 14:49] VITALS: BMI 20.3
[2024-02-01 15:00] VITALS: BP 153/91
--- NOTE | 2024-02-01 15:46 | CM ---
Patient seen bedside, remains on O2, watch for home O2 needs. CM will continue to follow for discharge planning needs.
Plan; home no needs vs VN, watch for home O2 needs.
[2024-02-01 17:17] LABS: Glucose - Point of Care 194 mg/dl (70-99)
--- NOTE | 2024-02-01 17:24 | W.PN.HOSP.TC ---
Today's Communication/Plan
-
continue abx/steroids
PFT tomorrow
possible inpt bronch
wean off o2
Assessment / Plan
Assessment / Plan
Assessment:
LLL PNA
Acute hypoxic respiratory insufficiency on 4L NC
- CT 01/27: Parenchymal opacities and tree-in-bud nodules in the left lower lobe and to a lesser degree in the right upper lobe are favored to be infectious/inflammatory. More confluent left lower lobe opacity measuring 3.3 cm is likely also
infectious/inflammatory but an underlying pulmonary neoplasm would be difficult to completely exclude and follow-up imaging after treatment is recommended.
- continue Rocephin, Azithromycin day 1
- wean O2 as able
-Pulmonology evaluated and planning to do possibly an inpatient bronchoscopy
-Also patient was planned to have PFT on 02/03, pulm planning to do a bedside PFT
Suspected Acute COPD exacerbation
- continue IV Decadron, reduce to 4mg 8h
- nebs scheduled and prn
- continue mucolytic measures
- consult Pulm Thursday (follows with Festus)
Hyponatremia, acute
- improved
Hx of Cardiomyopathy
- Echo 10/25: EF 55%, mild
- continue BB/Aldactone
- OP Cards follow up
Urinary retention likely from enlarged prostate
- started on Flomax/Proscar
- patient is agreeable to performing self intermittent urethral/bladder catheterization on a prn basis
Alcohol use disorder
- No signs of withdrawal currently
- Monitor for alcohol withdrawal
Type 2 diabetes
- continue SSI (high in setting of steroids)
- continue NPH BID
- continue Farxiga
- A1c is 8.5%
Essential HTN
- continue MAT/BB/Aldactone
Hypercholesterolemia- statin/zetia
GERD/peptic ulcer
Erectile dysfunction
History of right pontine CVA in 2014- continue Plavix
Active smoker - nicotine patch
DVT ppx: SC Heparin
Code: Full
Anticipated Discharge: > 48 hours
Subjective/Interval History
-
Date of Service: February 01, 2024
Patient remains hypoxic
No significant cough
Denies having any wheezing
Objective Data
-
Labs:
Laboratory Results
02/01/24
07:00
WBC 25.4 H
Hgb 14.6
Hct 43.4
Plt Count 388
Sodium 136
Potassium 5.1
Chloride 105
Carbon Dioxide 22
BUN 34 H
Creatinine 0.9
Glucose 183 H
Calcium 9.5
Vital Signs:
Vital Signs
Temp Pulse Resp BP Pulse Ox
98 F 63 24 126/57 93
02/01/24 11:00 02/01/24 11:00 02/01/24 11:00 02/01/24 11:00 02/01/24 11:00
I&O
01/31/24 02/01/24 02/02/24
06:59 06:59 06:59
Intake Total 480 / 480 1290 / 1290
Output Total 800 / 800 800 / 800
Balance -320 / -320 490 / 490
Review of Systems
-
Respiratory: Reports No Symptoms
Cardiac: Reports No Symptoms
Abdomen/GI: Reports No Symptoms
Physical Exam
-
General: No Apparent Distress
HEENT: Oxygen (4L NC)
Respiratory: Wheezes
Cardiac: Regular Rhythm and S1/S2; Negative Murmur
GI: Soft, Nontender and Nondistended
Neuro: Awake, Alert, Oriented and AO x 3
Hematologic / Lymphatic: No Lymphadenopathy
Psych: Calm
[2024-02-01] MEDS: PROSCAR 5 MG PO (17:41)
[2024-02-01] MEDS: ALDACTONE 25 MG PO (17:41)
[2024-02-01] MEDS: PLAVIX 75 MG PO (17:42)
[2024-02-01] MEDS: LIPITOR 80 MG PO (17:42)
[2024-02-01] MEDS: TOPROL XL 25 MG PO (17:42)
[2024-02-01] MEDS: FARXIGA 10 MG PO (17:42)
[2024-02-01] MEDS: HUMULIN N KWIKPEN 16 UNITS SC (18:25)
[2024-02-01 20:09] VITALS: BP 113/58
[2024-02-01] MEDS: THIAMINE INJECTION IV (20:12)
[2024-02-01 22:09] LABS: Glucose - Point of Care 209 mg/dl (70-99)
[2024-02-01 23:20] VITALS: BP 95/57
[2024-02-02] MEDS: DECADRON 4 MG IV ×3 (01:13→16:28)
[2024-02-02 03:50] VITALS: BP 123/47
[2024-02-02 05:47] VITALS: BMI 19.8
[2024-02-02 07:20] VITALS: BP 134/66
[2024-02-02 07:22] LABS: Glucose - Point of Care 192 mg/dl (70-99)
[2024-02-02] MEDS: HUMULIN N KWIKPEN 26 UNITS SC (07:44)
[2024-02-02] MEDS: NOVOLOG FLEXPEN-HIGH RESISTANCE 2 UNITS SC (07:44)
[2024-02-02] MEDS: FOLVITE 1 MG PO (07:46)
[2024-02-02] MEDS: FLOMAX 0.400000000000000022 MG PO (07:46)
[2024-02-02] MEDS: MUCINEX 600 MG PO ×2 (07:46→20:12)
[2024-02-02] MEDS: ZETIA 10 MG PO (07:46)
[2024-02-02] MEDS: VASOTEC 20 MG PO ×2 (08:03→20:12)
[2024-02-02] MEDS: THIAMINE INJECTION IV (08:09)
[2024-02-02 08:15] LABS: Hematocrit 44.9 % (39.0-52.0); Hemoglobin 15.3 g/dL (13.0-18.0); Mean Corp Hgb Conc. 34.1 g/dL (33.0-37.0); Mean Corpuscular Hgb 30.8 pg (27.0-31.0); Mean Corpuscular Volume 90.5 fL (80.0-94.0); Platelet Count 382 10^3/uL (130-400); Red Blood Cell Count 4.96 10^6/uL (4.70-6.10); Red Cell Dist. Width 13.2 % (11.5-14.5); White Blood Cell Count 22.6 10^3/uL (4.8-10.8)
--- NOTE | 2024-02-02 11:17 | W.PN.PUL3 ---
Today's Communication / Plan
-
PFT obtained showing moderate obstruction, we will initiate inhalers to continue at discharge with COPD education
Discussed obtaining repeat CT as OP so that we may arrange bronchoscopy/ION, he was agreeable
Transition IV steroids to PO prednisone taper
Can transition abx to PO course
Discharge planning per team in next 24 hours
Outpatient pulmonary FU reviewed with patient
Assessment
-
73 y/o man with a history of IDDM, HTN, chronic ETOH use, HFpEF, smoker, presenting to ER for SOB for the past 3-4 days with chronic cough complaints. Noted to have abnormalities on CT chest obtained with new 3.3 cm LLL infiltrate vs mass new
from prior. Sputum culture is negative. He had been seen at ER on 01/21/24 with dizziness, decreased PO intake, weight loss, fatigue and BEAR. Was discharged home.
He had a previous hospitalization in August 2023 for pneumonia/COPD and heart failure. CT chest at that time on 08/24/23 showing abnormal nodular/interstitial pattern. We are consulted for eval.
Acute hypoxemic resp failure
Bilateral infiltrates
New 3.3cm LLL opacity
SOB/chronic cough
Tobacco use disorder, >50 pack years, ongoing
Leukocytosis
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
Diabetes mellitus, type 1
GERD
HTN
Renal insufficiency
HLD
Current smoker, since 20s, 1/4PPD now but at heaviest up to 1 PPD, >50+ years
Chronic ETOH use
Right interarticular fracture lateral tibial plateau-immobilizer
History of gastritis, gastric ulcers-ppi (2012)
Broken collar bone-6 yrs old
Fracture rt heel (2009)
R pontine cva-hospital, asa, statin 03/09/2015
History of pneumonia
Colon polyps
Tonsillectomy() 10/22/2007
Right interarticular fracture lateral tibial plateau (2010) 09/24/2011
[facility]- post covid syndrome 06/01/23
[facility]- pneumonia 08/2023
Plan
Hypoxemia noted on arrival, O2 chely 86% on RA
Not known to be on home O2 as outpatient
6MWT showing need for 2L with exertion, 93% on RA at rest
This was reviewed with patient, he had refused O2 set up per primary team
Prior history of lung disease is suspected including COPD
Had been seen by Dr Lynch in the past, felt to have COPD. No prior PFTs for review
Smoker, up to 1PPD for 50 years, ongoing. Has cut down to 1/ PPD. Denies lung cancer history in his family.
Never had yearly screening
PFT obtained showing moderate COPD, mild restriction with air trapping
Will initiate inhalers: symbicort/spiriva with albuterol PRN
COPD education
Was started on IV steroids, can transition to prednisone taper
Suspect patient has possible new LLL mass
CXR/CT imaging reviewed, can arrange for bronchoscopy as OP with ION allison
He was agreeable
At risk for lung cancer given smoking history
Reasonable to repeat CT as OP to follow infiltrates, this was discussed with patient
ECHO results reviewed (preserved EF on recent ECHO)
Prior testing was reduced 40-45% with stage II DD.
proBNP neg on arrival
Will need outpatient pulmonary evaluation in our office
Reviewed with patient
Risk factors assessed for underlying sleep disordered breathing also noted, recommend outpatient PSG/sleep evaluation
Smoking history noted
Smoking cessation encouraged
There is history of chronic ETOH use as well (3-4 drinks/day)
Observe for signs of w/d
Discharge planning per team
Diagnostic Data
CXR 08-22-2023: Bilateral pneumonia, which appears slightly increased from radiograph of August 19, 2023. Minimal bilateral pleural effusions.
CT Chest 01/28/24- Parenchymal opacities and tree-in-bud nodules in the left lower lobe and to a lesser degree in the right upper lobe are favored to be infectious/inflammatory. More confluent left lower lobe opacity measuring 3.3 cm is likely also
infectious/inflammatory but an underlying pulmonary neoplasm would be difficult to completely exclude and follow-up imaging after treatment is recommended.
CT Chest w/o Contrast 08-24-2023: Small left pleural effusion with small to moderate right pleural effusion. Bilateral patchy parenchymal airspace opacities, compatible with multifocal pneumonia. These have probably increased compared to chest
radiograph of August 22, 2023. Minimal pericardial effusion, unlikely to be clinically significant. Aortic valvular calcification present, which appears moderate. Please correlate with any clinical signs or symptoms that would suggest aortic
stenosis.
ECHO 10/29/23- Normal biventricular size and global systolic function. LV ejection fraction is 55% by Rosas's method of discs. Apical anteroseptal and apical akinesis. No evidence of thrombus. Mild aortic stenosis. Compared to previous echo on
09/12, global and regional wall motion has improved. Prior EF was reported at 40 to 45%, inferolateral and lateral wall motion abnormality has improved. Apical akinesis persists. Otherwise, the findings are similar.
ECHO 08/24/23: LVEF 40-45% with stage II diastolic dysfunction. Normal RV size and systolic function. Mild . Apical akinesis with hypokinetic inferolateral/lateral redman.
PFT 02/02/24: FEV1 1.6L 52%, FVC 2.5L 59%, ratio 64. Post FEV1 56%. LC 5.55 79%, RV/TLC 51%, DLCO 49% (moderate obstruction, mild restriction with air trapping, moderate diffusion impairment)
6MWT 02/02/24: baseline O2 on RA 93%, O2 chely 88% with ambulation, 2L required to maintain sat >90%
Subjective Data
-
Date of Service:
Date of Service: February 02, 2024
Chief Complaint: Pulmonary Follow Up
Subjective:
no issues overnight, remains stable on RA at rest
no new complaints
Objective Data
Data Reviewed
Vital Signs / I&O / Oxygen:
Vital Signs
Temp Pulse Resp BP Pulse Ox
97.7 F 50 17 134/66 95
02/02/24 07:20 02/02/24 08:03 02/02/24 07:20 02/02/24 08:03 02/02/24 07:45
Intake and Output
02/01/24 02/02/24 02/03/24
06:59 06:59 06:59
Intake Total 1290 / 1290 720 / 720
Output Total 800 / 800 300 / 300
Balance 490 / 490 420 / 420
SaO2 95
Nasal Cannula flow liters per 4
minute
Physical Exam
General: Comfortable and Other (NAD)
HEENT: Normocephalic, Anicteric and Moist Mucous Membranes
Cardiovascular: S1-S2 and Regular Rhythm
Respiratory: Clear and Non-Labored Respirations
GI: Soft, Non Distended and Non Tender
Neurology: Awake, Alert, Oriented, AO x 3 and No Motor Deficits
Skin: Warm, Dry and Good Color
Labs/Micro/Reports
Lab Data
02/02/24 08:08
Microbiology
01/31/24 09:46 Sputum Respiratory Culture - Preliminary
Usual Respiratory Elizabeth
01/31/24 09:46 Sputum Gram Stain - Preliminary
01/30/24 10:09 Nasal Swab Influenza Types A & B (JEFF) - Final
Negative for Influenza A & B, NAAT
Negative results must be combined with clinical observations
and patient history.
Nucleic Acid Amplification test (NAAT)performed on the
[employer] platform.
[2024-02-02 11:48] LABS: Glucose - Point of Care 395 mg/dl (70-99)
--- NOTE | 2024-02-02 11:57 | CM ---
CM reviewed chart with Hospitalist and nurse, will order a home O2 evaluation for patient. CM will watch for home O2 evaluation and discuss with patient. CM will continue to follow for discharge planning needs.
Plan; watch home O2 eval.
[2024-02-02] MEDS: NOVOLOG FLEXPEN-HIGH RESISTANCE 12 UNITS SC (12:23)
[2024-02-02] MEDS: ZITHROMAX INFUSION 250 IV (12:24)
[2024-02-02] MEDS: ROCEPHIN 1000 MG IV (12:25)
[2024-02-02] MEDS: STERILE WATER FOR INJECTION 10 ML IV (12:25)
--- NOTE | 2024-02-02 13:01 | W.PN.HOSP.TC ---
Today's Communication/Plan
-
keep abx
on IV steroids
PFT reviewed
home o2 assessment
await pulm eval
Assessment / Plan
Assessment / Plan
Assessment:
LLL PNA
Acute hypoxic respiratory insufficiency on 4L NC
-CT 01/27: Parenchymal opacities and tree-in-bud nodules in the left lower lobe and to a lesser degree in the right upper lobe are favored to be infectious/inflammatory. More confluent left lower lobe opacity measuring 3.3 cm is likely also
infectious/inflammatory but an underlying pulmonary neoplasm would be difficult to completely exclude and follow-up imaging after treatment is recommended.
-continue Rocephin, Azithromycin day 1
-wean O2 as able
-PFT reviewed FEV1/FVC ratio of 88%, DLco 50%
-Pulmonology planning to do an outpatient ION bronchoscopy
Suspected Acute COPD exacerbation
- continue IV Decadron, reduce to 4mg 8h
- nebs scheduled and prn
- continue mucolytic measures
- consult Pulm Thursday (follows with Finn)
Hyponatremia, acute
- improved
Hx of Cardiomyopathy
- Echo 10/25: EF 55%, mild
- continue BB/Aldactone
- OP Cards follow up
Urinary retention likely from enlarged prostate
- started on Flomax/Proscar
- patient is agreeable to performing self intermittent urethral/bladder catheterization on a prn basis
Alcohol use disorder
- No signs of withdrawal currently
- Monitor for alcohol withdrawal
Type 2 diabetes
- continue SSI (high in setting of steroids)
- continue NPH BID
- continue Farxiga
- A1c is 8.5%
Essential HTN
- continue MAT/BB/Aldactone
Hypercholesterolemia- statin/zetia
GERD/peptic ulcer
Erectile dysfunction
History of right pontine CVA in 2014- continue Plavix
Active smoker - nicotine patch
DVT ppx: SC Heparin
Code: Full
Anticipated Discharge: Within 24 hours
Subjective/Interval History
-
Date of Service: February 02, 2024
resting comfortably in bed
remains on o2 through NC
denies of having cough/sob
Objective Data
-
Labs:
Laboratory Results
02/02/24
08:08
WBC 22.6 H
Hgb 15.3
Hct 44.9
Plt Count 382
Sodium Pending
Potassium Pending
Chloride Pending
Carbon Dioxide Pending
BUN Pending
Creatinine Pending
Glucose Pending
Calcium Pending
Vital Signs:
Vital Signs
Temp Pulse Resp BP Pulse Ox
97.7 F 50 17 134/66 95
02/02/24 07:20 02/02/24 08:03 02/02/24 07:20 02/02/24 08:03 02/02/24 07:45
I&O
02/01/24 02/02/24 02/03/24
06:59 06:59 06:59
Intake Total 1290 / 1290 720 / 720
Output Total 800 / 800 300 / 300
Balance 490 / 490 420 / 420
Review of Systems
-
Respiratory: Denies Cough or Trouble Breathing
Cardiac: Reports No Symptoms
Abdomen/GI: Reports No Symptoms
Physical Exam
-
General: No Apparent Distress
HEENT: Oxygen (4L NC)
Respiratory: Wheezes
Cardiac: Regular Rhythm and S1/S2; Negative Murmur
GI: Soft, Nontender and Nondistended
Neuro: Awake, Alert, Oriented and AO x 3
Hematologic / Lymphatic: No Lymphadenopathy
Psych: Calm
[2024-02-02 13:27] VITALS: O2SAT 95
[2024-02-02 14:56] LABS: Blood Urea Nitrogen 49 mg/dl (9-20); Calcium 9.3 mg/dl (8.4-10.2); Carbon Dioxide 20 mmol/L (22-30); Chloride 101 mmol/L (98-107); Estimated Creatinine Clearance 64 ml/min; Glucose 411 mg/dl (70-99); Potassium 5.2 mmol/L (3.5-5.1); Sodium 129 mmol/L (135-145); eGFR > 60.00
[2024-02-02 15:05] VITALS: BP 122/59
[2024-02-02] MEDS: PROSCAR 5 MG PO (17:07)
[2024-02-02] MEDS: FARXIGA 10 MG PO (17:07)
[2024-02-02] MEDS: LIPITOR 80 MG PO (17:07)
[2024-02-02] MEDS: ALDACTONE 25 MG PO (17:07)
[2024-02-02] MEDS: TOPROL XL 25 MG PO (17:07)
[2024-02-02] MEDS: PLAVIX 75 MG PO (17:07)
[2024-02-02 17:10] LABS: Glucose - Point of Care 289 mg/dl (70-99)
[2024-02-02] MEDS: NOVOLOG FLEXPEN-HIGH RESISTANCE 7 UNITS SC (18:02)
[2024-02-02] MEDS: HUMULIN N KWIKPEN 16 UNITS SC (18:04)
[2024-02-02] MEDS: SYMBICORT 160/4.5 MCG INHALER 2 PUFF INH (19:41)
[2024-02-02 20:05] VITALS: BP 118/66
[2024-02-02 21:16] LABS: Glucose - Point of Care 253 mg/dl (70-99)
[2024-02-02 23:02] VITALS: BP 99/63
--- NOTE | 2024-02-03 03:07 | DOWNTIME ---
There was a [employer] Downtime on 02/02/2024 from 0100 to 02/03/2024 at 0300. Downtime documentation of patient's care, including medication administrations, has been reconciled in the electronic record per guidelines. Refer to the
patient's paper chart under the miscellaneous tab to see printed paper medication records and downtime forms.
[2024-02-03 06:51] LABS: Glucose - Point of Care 170 mg/dl (70-99)
[2024-02-03 06:59] LABS: Hematocrit 44.7 % (39.0-52.0); Hemoglobin 15.2 g/dL (13.0-18.0); Mean Corpuscular Hgb 30.5 pg (27.0-31.0); Mean Corpuscular Volume 89.6 fL (80.0-94.0); Mean Platelet Volume 8.9 fL (7.4-10.4); Platelet Count 351 10^3/uL (130-400); Red Blood Cell Count 4.99 10^6/uL (4.70-6.10); Red Cell Dist. Width 13.2 % (11.5-14.5); White Blood Cell Count 20.2 10^3/uL (4.8-10.8)
[2024-02-03 07:00] VITALS: BP 123/56
[2024-02-03] MEDS: NOVOLOG FLEXPEN-HIGH RESISTANCE 2 UNITS SC (07:25)
[2024-02-03] MEDS: DELTASONE 50 MG PO (07:25)
[2024-02-03] MEDS: MUCINEX 600 MG PO (07:26)
[2024-02-03] MEDS: FOLVITE 1 MG PO (07:26)
[2024-02-03] MEDS: FLOMAX 0.400000000000000022 MG PO (07:26)
[2024-02-03] MEDS: ZETIA 10 MG PO (07:27)
[2024-02-03] MEDS: HUMULIN N KWIKPEN 26 UNITS SC (07:27)
[2024-02-03 07:32] LABS: Blood Urea Nitrogen 37 mg/dl (9-20); Calcium 9.7 mg/dl (8.4-10.2); Carbon Dioxide 25 mmol/L (22-30); Chloride 101 mmol/L (98-107); Estimated Creatinine Clearance 64 ml/min; Glucose 202 mg/dl (70-99); Potassium 5.1 mmol/L (3.5-5.1); Sodium 134 mmol/L (135-145); eGFR > 60.00
[2024-02-03] MEDS: SPIRIVA RESPIMAT 2.5 MCG 2 PUFF INH (07:32)
[2024-02-03] MEDS: SYMBICORT 160/4.5 MCG INHALER 2 PUFF INH (07:32)
[2024-02-03] MEDS: VASOTEC 20 MG PO (07:35)
[2024-02-03] MEDS: ZITHROMAX 500 MG PO (10:50)
--- NOTE | 2024-02-03 11:02 | CM ---
Patient seen with , plan discharge home, no needs. Patient weaned off oxygen. IMM reviewed, signed, placed in chart. to provide transportation home. CM will continue to follow for discharge planning needs.
Plan; home no needs, to provide transport.
--- NOTE | 2024-02-03 14:18 | W.PN.HOSP.TC ---
Today's Communication/Plan
-
Discharge home
Assessment / Plan
Assessment / Plan
Assessment:
LLL PNA
Acute hypoxic respiratory insufficiency -resolved
-CT 01/27: Parenchymal opacities and tree-in-bud nodules in the left lower lobe and to a lesser degree in the right upper lobe are favored to be infectious/inflammatory. More confluent left lower lobe opacity measuring 3.3 cm is likely also
infectious/inflammatory but an underlying pulmonary neoplasm would be difficult to completely exclude and follow-up imaging after treatment is recommended.
-PFT reviewed FEV1/FVC ratio of 88%, DLco 50%
-Pulmonology planning to do an outpatient CT scan and ION bronchoscopy
-Providing remaining course of Omnicef and azithromycin at discharge
Suspected Acute COPD exacerbation
-Provide tapering course of oral steroids at discharge
- nebs scheduled and prn
- continue mucolytic measures
Hyponatremia, acute
- improved
Hx of Cardiomyopathy
- Echo 10/25: EF 55%, mild
- continue BB/Aldactone
- OP Cards follow up
Urinary retention likely from enlarged prostate
- started on Flomax/Proscar
- patient is agreeable to performing self intermittent urethral/bladder catheterization on a prn basis
Alcohol use disorder
- No signs of withdrawal currently
- Monitor for alcohol withdrawal
Type 2 diabetes
- continue SSI (high in setting of steroids)
- continue NPH BID
- continue Farxiga
- A1c is 8.5%
Essential HTN
- continue MAT/BB/Aldactone
Hypercholesterolemia- statin/zetia
GERD/peptic ulcer
Erectile dysfunction
History of right pontine CVA in 2014- continue Plavix
Active smoker - nicotine patch
DVT ppx: SC Heparin
Code: Full
More than 30 minutes spent in discharge including
Final examination of the patient
Summarizing hospital stay
Instructions for continuing care to all relevant caregivers
Preparation of discharge records, prescriptions, and referral forms
Total time spent (in minutes): 38 mins
Anticipated Discharge: Today
Subjective/Interval History
-
Date of Service: February 03, 2024
Off of oxygen
Denies cough
Afebrile overnight
Objective Data
-
Labs:
Laboratory Results
02/03/24 02/03/24
06:40 06:41
WBC 20.2 H
Hgb 15.2
Hct 44.7
Plt Count 351
Sodium 134 L
Potassium 5.1
Chloride 101
Carbon Dioxide 25
BUN 37 H
Creatinine 0.9
Glucose 202 H
Calcium 9.7
Vital Signs:
Vital Signs
Temp Pulse Resp BP Pulse Ox
98.1 F 51 16 123/56 95
02/03/24 07:00 02/03/24 07:37 02/03/24 07:37 02/03/24 07:35 02/03/24 08:55
I&O
02/02/24 02/03/24 02/04/24
06:59 06:59 06:59
Intake Total 720 / 720 2340 / 2340 480 / 480
Output Total 300 / 300 450 / 450 240 / 240
Balance 420 / 420 1890 / 1890 240 / 240
Review of Systems
-
Respiratory: Reports No Symptoms
Cardiac: Reports No Symptoms
Abdomen/GI: Reports No Symptoms
Physical Exam
-
General: No Apparent Distress
Respiratory: Clear to Auscultation
Cardiac: Regular Rhythm and S1/S2; Negative Murmur
GI: Soft, Nontender and Nondistended
Neuro: Awake, Alert, Oriented and AO x 3
Hematologic / Lymphatic: No Lymphadenopathy
Psych: Calm
--- NOTE | 2024-02-04 14:54 | W.DCSUMMARY ---
Discharge Summary
Discharge Data
Date of Admission: 01/30/24
Date of Discharge: 02/03/24
-
Pending Results: No
Hospital Course
Discharging Physician : Dr Justin Bah
Disposition : Home
Primary care physician : Dr Amelia Broussard
Principal Discharge diagnosis :
Left lower lobe and right upper lobe pneumonia
Left lower lobe mass
Chronic obstructive pulmonary disease
Acute hyponatremia
Urinary retention
Acute hypoxic respiratory insufficiency
Chronic Discharge diagnosis :
Active smoker
Alcohol use disorder
Type 2 diabetes mellitus
Essential hypertension
Gastroesophageal flux disease
Peptic ulcer disease
History of right pontine stroke
Hospital Course :
Patient is a 73-year-old male with above-mentioned past medical history came with new onset of shortness of breath and chronic cough. Chest x-ray in ER suggestive of possible new left lower lobe pneumonia. CT scan of chest 48 hours back in
outpatient was showing new left lower lobe infiltrate versus mass. Patient also an active smoker and was planned to get PFT for suspected COPD, and was felt to having COPD flareup as well. Patient was started on broad-spectrum antibiotic and
steroids. Pulmonology was involved in care. Pulmonology did have a inpatient PFT showing FEV1/FVC ratio of 88% although DLCO was decreased to 50%. Initially patient was planned to get an inpatient bronchoscopy for left lower lobe mass although
after discussion with interventional shoe cleaner it was decided to have patient done ION bronchoscopy outpatient basis. Patient planned to have repeat outpatient CT scan and bronchoscopy. Patient was able to be weaned off of oxygen. Discharged
on regimen of Omnicef and azithromycin.
Important imaging findings :
None
Procedure findings :
None
Discharge Plan
-
Patient Disposition: Home (Routine Discharge)
Discharge Diagnosis/Procedures: COPD flare up , Left lower lung mass, community acquired pneumonia
Condition: Fair
Diet: Regular
Activity: As tolerated
Driving Restrictions: No driving
Bathing Restrictions: OK to Shower
Referrals:
Julio César Lynch MD [Active] - in two to three weeks (2-3 weeks, PFTs/6MWT)
Amelia Broussard MD [Family Provider] - in one week
Prescriptions:
New
budesonide-formoterol [Symbicort] 160-4.5 mcg/actuation Hfa Aerosol Inhaler
2 puff inhalation R BID Qty: 10.2 0RF
Spiriva Respimat 2.5 mcg/actuation Mist
2 puff inhalation R DAILY Qty: 4 0RF
albuterol sulfate 90 mcg/actuation Hfa Aerosol Inhaler
2 puff inhalation R Q4HPRN PRN (Reason: SOB/wheezing) Qty: 8.5 0RF
prednisone 10 mg Tablet
See Rx Instructions .ROUTE .COMPLEX Qty: 45 0RF
Rx Instructions:
Take By Mouth:
50 mg daily x3 days, 40 mg daily x3 days,
30 mg daily x3 days, 20 mg daily x3 days, 10mg daily x3days
cefdinir 300 mg capsule
300 mg PO BID 2 Days Qty: 4 0RF
azithromycin 250 mg tablet
250 mg PO DAILY 2 Days Qty: 2 0RF
Continued
enalapril maleate 20 MG tablet
20 mg PO BID
clopidogrel 75 MG tablet
75 mg PO QPM
atorvastatin 80 mg Tablet
80 mg PO QPM
tamsulosin 0.4 mg capsule
0.4 mg PO DAILY Qty: 90 3RF
spironolactone 25 mg Tablet
25 mg PO QPM
insulin NPH isoph U-100 human 100 unit/mL Suspension
26 unit SC DAILY
insulin NPH isoph U-100 human 100 unit/mL Suspension
16 unit SC QPM
metoprolol succinate 25 mg Tablet Extended Release 24 Hr
25 mg PO QPM
insulin lispro [Humalog U-100 Insulin] 100 unit/mL Solution
0 sliding scale dose SC DIRECTED PRN (Reason: diabetes)
Patient Comments:
01/30/2024, pt. uses this med. on a sliding scale ACPRN; pt. does not know what their sliding scale is.
ezetimibe 10 mg Tablet
10 mg PO DAILY
Patient Comments:
01/30/2024, pt. unsure if he is taking this med. or not; filled on 01/05/2024 for a 30-day supply.
dapagliflozin propanediol [Farxiga] 10 mg Tablet
10 mg PO QPM
Clear Eyes
1 drp BOTH EYES DAILYPRN PRN (Reason: dry eyes)
finasteride 5 mg tablet
5 mg PO DAILY
Mucinex
2 tab PO BID
Patient Comments:
01/30/2024, per pt., he has been taking 2 tablets of mucinex BID for the past 4 days.
Discharge Orders:
Discharge Patient (As Directed); Ordered 02/03/24
Ordered By: Justin Bah
Discharge Date and Time
Discharge Date/Time: 02/03/24 11:25
Print Language: THAI
== END 2024-02-03 11:25 | disposition home or self-care (01) | DRG 190 ==
LOC: 4 WEST ACU 13:30
PROVIDERS: Internal Medicine; Physician Assistant; ADMITTING PHYSICIAN Internal Medicine; ATTENDING PHYSICIAN Hospitalist; CONSULT PHYSICIAN Internal Medicine Critical Care Medicine; EMERGENCY PHYSICIAN Emergency Medicine; FAMILY PHYSICIAN Internal Medicine
DX: J44.0 Chronic obstructive pulmonary disease with (acute) lower respiratory infection (principal); J18.9 Pneumonia, unspecified organism; E87.1 Hypo-osmolality and hyponatremia; I50.32 Chronic diastolic (congestive) heart failure; J44.1 Chronic obstructive pulmonary disease with (acute) exacerbation; R33.9 Retention of urine, unspecified; F17.210 Nicotine dependence, cigarettes, uncomplicated; F10.90 Alcohol use, unspecified, uncomplicated; E11.9 Type 2 diabetes mellitus without complications; I11.0 Hypertensive heart disease with heart failure; K27.9 Peptic ulcer, site unspecified, unspecified as acute or chronic, without hemorrhage or perforation; R91.8 Other nonspecific abnormal finding of lung field; Z86.73 Personal history of transient ischemic attack (TIA), and cerebral infarction without residual deficits; Z79.84 Long term (current) use of oral hypoglycemic drugs
CPT/HCPCS: 94727; 94729; 71046; 80048; 82962; 83036; 83735; 83880; 84484; 85025; 85027; 87070; 87205; 87502; 87811; 93005; 94060; 94640; 96365; 96375; 97116; 97161; 97166; 97530; 99285

== ENCOUNTER → 2024-03-16 08:24 | Outpatient (REF) | payer MEDICARE, SELFPAY | LOC: RAD 08:24 | PROVIDERS: ATTENDING PHYSICIAN Internal Medicine Critical Care Medicine; FAMILY PHYSICIAN Internal Medicine | DX: R93.89 Abnormal findings on diagnostic imaging of other specified body structures (principal); Z87.01 Personal history of pneumonia (recurrent); R06.02 Shortness of breath | CPT/HCPCS: 71250 ==

== ENCOUNTER 2024-07-13 06:11 | Day surgery (SDC) | payer MEDICARE, SELFPAY ==
[2024-07-05 08:25] VITALS: BMI 22.3
[2024-07-05 08:52] LABS: Hemoglobin 16.3 g/dL (13.0-18.0); Mean Corp Hgb Conc. 34.7 g/dL (33.0-37.0); Mean Corpuscular Hgb 30.8 pg (27.0-31.0); Mean Corpuscular Volume 88.8 fL (80.0-94.0); Mean Platelet Volume 9.7 fL (7.4-10.4); Platelet Count 206 10^3/uL (130-400); Red Blood Cell Count 5.29 10^6/uL (4.70-6.10); Red Cell Dist. Width 13.2 % (11.5-14.5); White Blood Cell Count 7.4 10^3/uL (4.8-10.8)
[2024-07-05 09:24] LABS: Blood Urea Nitrogen 21 mg/dl (9-20); Calcium 9.5 mg/dl (8.4-10.2); Carbon Dioxide 28 mmol/L (22-30); Chloride 103 mmol/L (98-107); Estimated Creatinine Clearance 59 ml/min; Glucose 90 mg/dl (70-99); Potassium 4.7 mmol/L (3.5-5.1); Sodium 141 mmol/L (135-145); eGFR > 60.00
--- NOTE | 2024-07-05 14:24 | PTCARENOTE ---
Abn ECG, Dr. Arboleda notified, no additional requests made.
[2024-07-13] VITALS (18 sets, daily range): BP systolic 129–175; BP diastolic 44–81; BMI 22.3
[2024-07-13 06:33] LABS: Glucose - Point of Care 154 mg/dl (70-99)
[2024-07-13 08:59] LABS: Glucose - Point of Care 109 mg/dl (70-99)
[2024-07-13 10:56] LABS: Glucose - Point of Care 139 mg/dl (70-99)
--- NOTE | 2024-07-13 12:45 | PTCARENOTE ---
Patient received from PACU in bed; Continuous bladder irrigation currently running, urine bloody with no clots noted at this time; Patient denies pain at this time; Patient denies nausea/vomiting at this time; Spouse at bedside; Patient and spouse
oriented to room and unit; Call soto within reach; Bed in lowest position, wheels locked; Assessment ongoing
[2024-07-13] MEDS: NOVOLOG FLEXPEN-MODERATE RESISTANCE SC (13:14)
[2024-07-13 16:51] LABS: Glucose - Point of Care 338 mg/dl (70-99)
[2024-07-13] MEDS: LIPITOR 80 MG PO (17:11)
[2024-07-13] MEDS: FARXIGA 10 MG PO (17:12)
[2024-07-13] MEDS: PROSCAR 5 MG PO (17:12)
[2024-07-13] MEDS: NOVOLOG FLEXPEN-MODERATE RESISTANCE 7 UNITS SC (17:13)
[2024-07-13] MEDS: HUMULIN N KWIKPEN 16 UNITS SC (17:13)
[2024-07-13] MEDS: VASOTEC PO (20:26)
[2024-07-13 21:12] LABS: Glucose - Point of Care 324 mg/dl (70-99)
[2024-07-13] MEDS: FLOMAX PO (22:11)
[2024-07-13 23:40] LABS: Glucose - Point of Care 262 mg/dl (70-99)
[2024-07-14 00:05] VITALS: BP 105/47
[2024-07-14] MEDS: NOVOLIN R 0.02 UNITS SC (01:10)
[2024-07-14 03:10] VITALS: BP 115/70
--- NOTE | 2024-07-14 07:10 | PTCARENOTE ---
I Ian Texted and then spoke on the phone to on-call Urologist Dr. Major Dotson regarding Dr. Cassius Gutierrez's pt Joel Valenciashima. Dr. Dotson gave me an order to give 2 units of regular insulin for CBG of 262. Dr. Dotson also ordered an AM BMP
due to continual bloody output from pt's CBI. In the morning I Ian Texted both doctors regarding whether to d/c the 3 way cath because the output continued to be bloody with multiple clots, noting no occlusion. Dr. Dotson reponded to slow the CBI
down, & not remove 3 way Cath until Fr. Gutierrez saw the pt.
[2024-07-14 07:25] LABS: Glucose - Point of Care 183 mg/dl (70-99)
[2024-07-14 07:26] VITALS: BP 136/68
[2024-07-14 07:36] LABS: Blood Urea Nitrogen 26 mg/dl (9-20); Calcium 9.2 mg/dl (8.4-10.2); Carbon Dioxide 26 mmol/L (22-30); Chloride 104 mmol/L (98-107); Estimated Creatinine Clearance 59 ml/min; Glucose 178 mg/dl (70-99); Potassium 4.6 mmol/L (3.5-5.1); Sodium 138 mmol/L (135-145); eGFR > 60.00
[2024-07-14] MEDS: HUMULIN N KWIKPEN 26 UNITS SC (07:44)
[2024-07-14] MEDS: NOVOLOG FLEXPEN-MODERATE RESISTANCE 1 UNITS SC (07:44)
[2024-07-14] MEDS: ZETIA 10 MG PO (07:45)
[2024-07-14] MEDS: FLOMAX 0.4 MG PO (07:45)
[2024-07-14] MEDS: VASOTEC 20 MG PO (07:45)
[2024-07-14] MEDS: LOW STRENGTH ASPIRIN 81 MG PO (07:45)
[2024-07-14] MEDS: URECHOLINE 50 MG PO ×2 (10:04→13:05)
--- NOTE | 2024-07-14 10:26 | CM ---
Met with pt and his at bedside
Pt reports he lives with his in a 2 story home; 1 step to enter, 13 steps to 2nd fl
Retired, active, independent, driving
DME - none
SNF - denies past hx
HH - [facility] in past
Has ride home at discharge -
PCP - Amelia Broussard
Pharm - [facility]
Plan - anticipate home no needs when medically stable
--- NOTE | 2024-07-14 11:27 | W.PN.URO.CBU ---
Today's Communication / Plan
-
Guzman out
Voiding trial
Home today w/ or w/o Guzman
Assessment / Plan
-
Guzman, ordered to be removed at 0600 remains
Diagnosis
-
Date of Service: July 14, 2024
-
Patient Diagnosis: Chronic, subtotal urinary retention
s/p TURP
Post Op Day: 1
Subjective
-
'feel good'
Objective
-
Vital Signs
Temp Pulse Resp BP Pulse Ox
99.1 F 71 16 136/68 94
07/14/24 07:26 07/14/24 07:26 07/14/24 07:26 07/14/24 07:45 07/14/24 07:26
Intake and Output
07/13/24 07/14/24 07/15/24
06:59 06:59 06:59
Intake Total 1830 / 1830
Output Total 4900 / 6400 2200 / 2200
Balance -3070 / -4570 -2200 / -2200
Intake:
Oral fluids 1530 / 1530
IV fluids (Total) 300 / 300
Normosol 300 / 300
Output:
Urine, Guzman 1000 / 1000
True Urine Output from CBI 3900 / 5400 2200 / 2200
Laboratory Results
07/05/24 07:08
07/14/24 06:17
Physical Exam
-
General - well developed, well nourished, no acute distress
Abdomen - soft, non-tender, positive bowel sounds, no distention
Genitalia - Guzman with CBI off -- outflow is thinly bloody
Care Review
Data Reviewed
Discussed with: Family (, at bedside)
[2024-07-14 11:59] VITALS: BP 149/74
[2024-07-14 13:18] LABS: Glucose - Point of Care 464 mg/dl (70-99)
[2024-07-14 14:10] LABS: Glucose 472 mg/dl (70-99)
[2024-07-14] MEDS: NOVOLOG FLEXPEN-MODERATE RESISTANCE 11 UNITS SC (14:10)
[2024-07-14 14:46] VITALS: BP 152/56
--- NOTE | 2024-07-14 15:04 | PTCARENOTE ---
Patient lunch glucose resulted as HI at 1313 today, stat glucose ordered per protocol and resulted as 472, 11 units insulin given per order (see MAR), patient discharge ordered, Dr. Gutierrez notified and per MD patient okay to discharge
== END 2024-07-14 16:00 | disposition home or self-care (01) ==
LOC: SDS 06:11
PROVIDERS: ATTENDING PHYSICIAN Specialist; FAMILY PHYSICIAN Internal Medicine
DX: N40.1 Benign prostatic hyperplasia with lower urinary tract symptoms (principal); R33.8 Other retention of urine; N35.911 Unspecified urethral stricture, male, meatal; N41.1 Chronic prostatitis
CPT/HCPCS: 52601; 88305; 36415; 80048; 82947; 82962; 85027; 88344

== ENCOUNTER 2024-09-19 09:30 | Emergency (ER) | payer MEDICARE, SELFPAY ==
[2024-09-19 09:35] VITALS: BP 158/80
[2024-09-19 09:37] VITALS: BP 158/80
[2024-09-19 09:45] LABS: Glucose - Point of Care 88 mg/dl (70-99)
[2024-09-19 10:00] VITALS: BP 172/66
--- NOTE | 2024-09-19 10:03 | ED.GENMED ---
History of Present Illness
General
Chief Complaint: Blood Sugar Problem
Source: patient, family and ambulance crew
Time Seen by Provider: 09/19/24 09:35
History of Present Illness
History of Present Illness:
Patient is a 74-year-old male who was brought to the emergency department by EMS. I took report from EMS and also obtain history from who is bedside at this time as well as patient. Patient checked his blood sugar this morning and it was
reasonable so he took his usual dose of insulin and went downstairs to eat breakfast. His noted that he developed drowsiness and difficulty feeding himself, checked his blood sugar and it was 33. Medics were called. Upon their arrival,
patient noted to be somnolent and not following commands. He was given IV glucose with resolution of symptoms. Patient has no complaints and is annoyed that he is here. He has a chronic cough which is unchanged. He is currently being treated for
a UTI with doxycycline which he is tolerating without difficulty. He denies chest pain, shortness of breath, fever, chills, nausea, vomiting, headache, dizziness, urinary symptoms, flank or back pain, or other complaints. He did note that his
blood sugar was elevated last night so he took 3 units of 'rapid acting' insulin before going to bed. His notes that last night he slid out of the chair while trying to get up. Patient is unclear why this happened but denies focal weakness,
numbness, tingling.
Past History
Past History
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
ED Past Surgical History: Orthopedic (right heel fracture 2009), Tonsilectomy and Urological
Social History
Tobacco: Smoker
Alcohol: Daily
Drug: None
Personal:
Living: with family
Family History
Family History: Other (reviewed and noncontributory)
Phy Exam
Physical Exam
Physical Exam:
GENERAL: Alert , in no apparent distress, pleasant, making jokes with me
EYE: pupils equal and reactive
NECK: Supple, no significant adenopathy.
ENT: o/p clr, mmm.
CARDIAC: Regular rate and rhythm .
LUNGS: Clear breath sounds bilaterally, no acute respiratory distress, no wheezes/rales/rhonchi
ABDOMEN: Soft, without focal tenderness, no r/g, no cvat
NEUROLOGICAL: Alert and oriented, no focal neuro deficits, motor 5 out of 5, sensory intact, cranial nerves II through XII intact
SKIN: Warm and dry, skin intact.
MUSCULOSKELETAL: No edema, well perfused.
PSYCH: Normal and appropriate interaction.
Course
Orders/Labs/Results
Orders:
Orders
09/19/24 10:11
Complete Blood Count/No Diff Urgent
Comprehensive Metabolic Panel Urgent
Abnormal Lab Results
09/19/24
10:11
WBC 12.7 H 10^3/uL
(4.8-10.8)
RBC 4.07 L 10^6/uL
(4.70-6.10)
Hgb 12.5 L g/dL
(13.0-18.0)
Hct 37.5 L %
(39.0-52.0)
RDW 14.8 H %
(11.5-14.5)
Glucose 115 H mg/dl
(70-99)
Calcium 7.5 L mg/dl
(8.4-10.2)
Total Protein 5.8 L g/dl
(6.3-8.2)
Albumin 3.1 L g/dl
(3.5-5.0)
09/19/24 10:11
09/19/24 10:11
Vital Signs
Initial and Last Documented VS:
Initial Vital Signs
Pulse Resp
72 22
09/19/24 09:34 09/19/24 09:34
Last Documented Vital Signs
Pulse Resp BP Pulse Ox
66 21 132/61 100
09/19/24 11:00 09/19/24 11:00 09/19/24 11:00 09/19/24 10:15
*Critical Care Note
Total Time (30-74mins, 75-104mins- exclusive of procedures): Not Applicable
Update Note
Update Note:
Patient presents to the Emergency Department with ____change in mental status
Number and Complexity of Problems Addressed at the Encounter
� Chronic conditions affecting care:
� Acute Exacerbation and/or Progression of Chronic Illness:
� Differential Diagnosis includes: But not limited to hypoglycemia, overmedication with insulin, stroke, etc.
Amount and/or Complexity of Data to be Reviewed and Analyzed
� I performed an independent evaluation of and my interpretation is:
EKG:
CT:
Xrays:
Laboratory Studies: Mild anemia, mild leukocytosis
Other:
� Review of other/old records reveals: Patient was admitted January 2024 with acute hyponatremia, COPD, pneumonia
� Clinical information was obtained by an independent historian: who is bedside as well as EMS
� Prescriptions/Medications Considered but not given:
� Further testing considered but not performed:
Risk of Complications and/or Morbidity or Mortality of Patient Management
� Social determinants of health affecting care:
� Discussion with other providers (PCP, Hospitalists, Consultants, etc):
� Escalation of care including admission/observation vs risk of discharge considered: Patient remains asymptomatic here and eager to go home. [place] text sent to his PCP, Dr. Broussard, and I advised patient to follow-up with her
this week weekly regarding this episode of hypoglycemia as well as his lab abnormalities.
ED Attending Note
-
Portions of this chart may have been created with voice recognition software.� Occasional wrong word or��sound alike� substitutions may have occurred due to the inherent limitations of voice recognition software.
Discharge Plan
Departure
Patient Disposition: Home (Routine Discharge)
Date of Disposition: 09/19/24
Time of Disposition: 12:02
Patient with high blood pressure during this ER visit?: Yes
Condition: Good
Discharge Problem:
Hypoglycemia
Instructions: Low Blood Sugar, Adult (DC), BLOOD PRESSURE
Prescriptions:
No Action
enalapril maleate 20 MG tablet
20 mg PO BID
clopidogrel 75 MG tablet
75 mg PO DAILY
atorvastatin 80 mg Tablet
80 mg PO QPM
insulin NPH isoph U-100 human 100 unit/mL Suspension
26 unit SC DAILY
insulin NPH isoph U-100 human 100 unit/mL Suspension
16 unit SC QPM
Patient Comments:
pt took 8 Units insulin last PM, 07/12/24.
insulin lispro [Humalog U-100 Insulin] 100 unit/mL Solution
0 sliding scale dose SC DIRECTED PRN (Reason: diabetes)
Patient Comments:
01/30/2024, pt. uses this med. on a sliding scale ACPRN; pt. does not know what their sliding scale is.
ezetimibe 10 mg Tablet
10 mg PO DAILY
Patient Comments:
01/30/2024, pt. unsure if he is taking this med. or not; filled on 01/05/2024 for a 30-day supply.
dapagliflozin propanediol [Farxiga] 10 mg Tablet
10 mg PO QPM
finasteride 5 mg tablet
5 mg PO QPM
acetaminophen 500 mg Tablet
500 mg PO Q6H
Referrals:
Amelia Broussard MD [Family Provider] - Tomorrow
Activity Restrictions/Additional Instructions:
PLEASE SEE YOUR DOCTOR IN CLOSE FOLLOW UP THIS WEEK. IF YOU DEVELOP DIZZINESS, CHEST PAIN, TROUBLE BREATHING, FEVER, WEAKNESS OR OTHER WORRISOME SIGNS, GO TO THE ER IMMEDIATELY! PLEASE EAT IMMEDIATELY FOLLOWING INSULIN ADMINISTRATION. YOU HAVE A
NEW ANEMIA TODAY, PLEASE HAVE THIS FOLLOW UP WITH YOUR DOCTOR (SEE ATTACHED). Hi there just a quick check-in regarding a patient here that sees you
Interventions
Interventions:
*Risk Screen - Suicide Last Done: 09/19/24 09:38
*Neglect/Abuse Screening Last Done: 09/19/24 09:38
ED- Fall Risk Assessment Last Done: 09/19/24 09:47
*ED COVID-19 Vaccine History Last Done: 09/19/24 09:47
ED- Neurological Assessment Last Done: 09/19/24 09:47
Discharge Date and Time
Print Language: TURKISH
[2024-09-19 10:35] LABS: Glucose - Point of Care 94 mg/dl (70-99)
[2024-09-19 11:00] VITALS: BP 132/61
[2024-09-19 11:02] LABS: Hematocrit 37.5 % (39.0-52.0); Hemoglobin 12.5 g/dL (13.0-18.0); Mean Corp Hgb Conc. 33.3 g/dL (33.0-37.0); Mean Corpuscular Hgb 30.7 pg (27.0-31.0); Mean Corpuscular Volume 92.1 fL (80.0-94.0); Mean Platelet Volume 9.9 fL (7.4-10.4); Platelet Count 302 10^3/uL (130-400); Red Blood Cell Count 4.07 10^6/uL (4.70-6.10); Red Cell Dist. Width 14.8 % (11.5-14.5); White Blood Cell Count 12.7 10^3/uL (4.8-10.8)
[2024-09-19 11:11] LABS: ALT (SGPT) 22 U/L (0-50); AST (SGOT) 27 U/L (17-59); Albumin 3.1 g/dl (3.5-5.0); Alkaline Phosphatase 62 U/L (38-126); Blood Urea Nitrogen 18 mg/dl (9-20); Calcium 7.5 mg/dl (8.4-10.2); Carbon Dioxide 22 mmol/L (22-30); Chloride 104 mmol/L (98-107); Glucose 115 mg/dl (70-99); Sodium 135 mmol/L (135-145); Total Bilirubin 0.7 mg/dl (0.2-1.3); Total Protein 5.8 g/dl (6.3-8.2); eGFR > 60.00
[2024-09-19 11:30] LABS: Potassium 3.6 mmol/L (3.5-5.1)
[2024-09-19 12:00] VITALS: BP 150/68
== END 2024-09-19 12:10 | disposition home or self-care (01) ==
LOC: EMR 09:30
PROVIDERS: EMERGENCY PHYSICIAN Emergency Medicine; FAMILY PHYSICIAN Internal Medicine
DX: E11.649 Type 2 diabetes mellitus with hypoglycemia without coma (principal); I10 Essential (primary) hypertension; K21.9 Gastro-esophageal reflux disease without esophagitis; E78.00 Pure hypercholesterolemia, unspecified; Z86.73 Personal history of transient ischemic attack (TIA), and cerebral infarction without residual deficits; F17.200 Nicotine dependence, unspecified, uncomplicated; Z79.4 Long term (current) use of insulin
CPT/HCPCS: 99283; 80053; 82962; 85027

== ENCOUNTER 2024-10-31 07:30 | Emergency (ER) | payer MEDICARE, SELFPAY ==
[2024-10-31 07:32] VITALS: BP 127/85
--- NOTE | 2024-10-31 09:00 | ED.GENMED ---
History of Present Illness
General
Chief Complaint: Fall
Time Seen by Provider: 10/31/24 08:13
History of Present Illness
History of Present Illness:
74-year-old male with history of diabetes, GERD, hypertension, hyperlipidemia, type 1 diabetes presenting with left rib pain. Patient reports on Thursday, 3 days ago he was making lunch for his . He started to feel lightheaded, fell backward and
struck the countertop with his back. He subsequently has been having left-sided rib pain. He notes that after the fall he checked his blood glucose and it was 60. He reports frequent episodes of hypoglycemia, is on long-acting insulin and
sometimes dismisses the preceding symptoms of hypoglycemia. He denies any chest pain or difficulty breathing at time of fall. He denies any head injury or neck injury. He denies any additional injuries from the fall. He has been taking Tylenol
for the pain. He denies additional acute medical complaints
Past History
Past History
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
ED Past Surgical History: Orthopedic (right heel fracture 2009), Tonsilectomy and Urological
Social History
Tobacco: Smoker
Alcohol: Daily
Drug: None
Personal:
Living: with family
Family History
Family History: Other (reviewed and noncontributory)
Phy Exam
Physical Exam
Physical Exam:
General: Well-appearing, no clinical signs of dehydration, nontoxic and in no acute distress
HEENT: protecting airway
Neck: appears supple
CV: Normal heart rate, regular rhythm
Resp: No accessory muscle use, no increased work of breathing, lungs clear to auscultation bilaterally. Focal tenderness to the left posterior inferior rib region. No crepitus. No ecchymosis. No tenderness to the midline spine
Abd: Soft and non-distended, no tenderness to palpation
Extremities: No deformities, no swelling, no erythema
Neuro: alert, no focal neurologic deficit
: deferred
Rectal: deferred
Psych: Normal affect
Skin: Intact
Course
Orders/Labs/Results
Orders:
Orders
10/31/24 08:41
CR Ribs-left 3 Vw W/pa Chest Urgent
Comment:
Reason For Exam: L-rib pain after fall
10/31/24 08:42
Lidocaine [Lidocaine 4% Patch] 1 patch TOPICAL ONCE ONE
Apply Lidocaine patch(s) to:: L-flank
Abnormal Lab Results
10/31/24
10:32
POC Glucose 105 H mg/dl
(70-99)
Vital Signs
Initial and Last Documented VS:
Initial Vital Signs
Temp Pulse Resp BP Pulse Ox
98.0 F 85 18 127/85 98
10/31/24 07:32 10/31/24 07:32 10/31/24 07:32 10/31/24 07:32 10/31/24 07:32
Last Documented Vital Signs
Temp Pulse Resp BP Pulse Ox
98.0 F 85 18 127/85 98
10/31/24 07:32 10/31/24 07:32 10/31/24 07:32 10/31/24 07:32 10/31/24 07:32
MDM/Problems Addressed
MDM/Problems Addressed:
74-year-old male presenting to the emergency department for left-sided rib pain after a fall 3 days ago. Vital signs on arrival are normal.
On exam patient is resting comfortably, no acute distress or discomfort. No physical signs of trauma. Head is atraumatic, no tenderness of the cervical spine. Only area of focal tenderness is left inferior posterior rib region. Suspected rib
contusion versus rib fracture. Lungs are clear to auscultation with lower suspicion for pneumothorax. Plan for x-ray imaging. Lidocaine patch placed for pain. Regarding etiology of fall, patient notes that he frequently has episodes of
hypoglycemia, checked his sugar after fall, it was low in the 60s. Suspected the patient did have a hypoglycemic episode. No other concerning symptoms for patient's recent of feeling lightheaded and fall, hemodynamically stable at this time .
11:10 -x-ray shows 10th rib fracture, no pneumothorax. At this time feel patient is stable for discharge. Discussion regarding pain control had. Will prescribe ibuprofen and lidocaine patches. Strict return precautions communicated and patient
verbalized understanding. Patient also provided with incentive spirometer
*Critical Care Note
Total Time (30-74mins, 75-104mins- exclusive of procedures): Not Applicable
ED Attending Note
-
Portions of this chart may have been created with voice recognition software.� Occasional wrong word or��sound alike� substitutions may have occurred due to the inherent limitations of voice recognition software.
Discharge Plan
Departure
Prescriptions:
No Action
enalapril maleate 20 MG tablet
20 mg PO BID
clopidogrel 75 MG tablet
75 mg PO DAILY
atorvastatin 80 mg Tablet
80 mg PO QPM
insulin NPH isoph U-100 human 100 unit/mL Suspension
26 unit SC DAILY
insulin NPH isoph U-100 human 100 unit/mL Suspension
16 unit SC QPM
Patient Comments:
pt took 8 Units insulin last PM, 07/12/24.
insulin lispro [Humalog U-100 Insulin] 100 unit/mL Solution
0 sliding scale dose SC DIRECTED PRN (Reason: diabetes)
Patient Comments:
01/30/2024, pt. uses this med. on a sliding scale ACPRN; pt. does not know what their sliding scale is.
ezetimibe 10 mg Tablet
10 mg PO DAILY
Patient Comments:
01/30/2024, pt. unsure if he is taking this med. or not; filled on 01/05/2024 for a 30-day supply.
dapagliflozin propanediol [Farxiga] 10 mg Tablet
10 mg PO QPM
finasteride 5 mg tablet
5 mg PO QPM
acetaminophen 500 mg Tablet
500 mg PO Q6H
Referrals:
Amelia Broussard MD [Family Provider] -
Interventions
Interventions:
*Risk Screen - Suicide Last Done: 10/31/24 07:32
*Neglect/Abuse Screening Last Done: 10/31/24 07:32
ED-Musculoskeletal Assessment Last Done: 10/31/24 10:38
ED- Neurological Assessment Last Done: 10/31/24 10:38
ED-Skin Assessment Last Done: 10/31/24 10:38
Discharge Date and Time
Print Language: [id number]
[2024-10-31] MEDS: LIDOCAINE 4% PATCH 1 PATCH TOPICAL (09:01)
[2024-10-31 10:33] LABS: Glucose - Point of Care 105 mg/dl (70-99)
== END 2024-10-31 11:49 | disposition home or self-care (01) ==
LOC: EMR 07:30
PROVIDERS: EMERGENCY PHYSICIAN Student in an Organized Health Care Education/Training Program; FAMILY PHYSICIAN Internal Medicine
DX: S22.32XA Fracture of one rib, left side, initial encounter for closed fracture (principal); W18.39XA Other fall on same level, initial encounter; W22.09XA Striking against other stationary object, initial encounter; E10.649 Type 1 diabetes mellitus with hypoglycemia without coma; E78.00 Pure hypercholesterolemia, unspecified; I10 Essential (primary) hypertension; K21.9 Gastro-esophageal reflux disease without esophagitis; Z79.4 Long term (current) use of insulin; F17.200 Nicotine dependence, unspecified, uncomplicated; Z86.73 Personal history of transient ischemic attack (TIA), and cerebral infarction without residual deficits
CPT/HCPCS: 99284; 71101; 82962

== ENCOUNTER 2024-11-16 19:14 | Inpatient (IN) | payer MEDICARE, SELFPAY ==
[2024-11-16] VITALS (19 sets, daily range): BP systolic 65–185; BP diastolic 52–79; BMI 19.1
[2024-11-16 13:18] LABS: Glucose - Point of Care 406 mg/dl (70-99)
--- NOTE | 2024-11-16 13:18 | ED.GENMED ---
ED Provider Triage
<Evert Walden PA-C - Last Filed: 11/16/24 13:19>
-
Patient seen by provider in Triage?: Seen in Triage
Attestation: A medical screening examination has been initiated by a qualified medical provider. Based on the assessment performed at this time, it has been determined that an emergent medical condition may exist and the patient has been informed
that further medical evaluation and possible additional diagnostic testing may be needed.
HPI: 74-year-old male diabetic on aspirin and Plavix presents with dizziness weakness and falls over the past several weeks. He feels unsteady on his feet. He feels at times he is leaning towards 1 side. He has checked his blood sugar in the
recent past and it reads high at times. He admits to daily alcohol use. Vital signs are stable. He has a contusion to the right cheek on exam at triage. Check labs EKG alcohol level and given the unsteadiness and dizziness CT angio of the head
and neck ordered
GENERAL: Alert , in no apparent distress
EYE: No visual abnormalities.
NECK: Trachea midline
ENT: No visible abnormalities.
LUNGS: No acute respiratory distress
NEUROLOGICAL: Alert and oriented
SKIN: Skin intact. No visible changes.
MUSCULOSKELETAL: Moving extremities normally
PSYCH: Normal and appropriate interaction.
This is a medical evaluation conducted in person to initiate diagnostic evaluation and provide initial therapeutics. Please see further documentation by the treating clinician.
History of Present Illness
<Evert Walden PA-C - Last Filed: 11/16/24 13:19>
General
Chief Complaint: Dizziness
Time Seen by Provider: 11/16/24 13:30
<Frederick Chauhan PA-C - Last Filed: 11/16/24 19:33>
History of Present Illness
History of Present Illness:
74-year-old male with history of hypertension, hyperlipidemia, tobacco use, chronic alcohol use, and insulin-dependent diabetes presents to the emergency department for evaluation of dizziness and weakness, reports increased falls over the past 1 to
2 weeks. States he does not feel unsteady or weak when he ambulates, is uncertain exactly why he is falling. Fell yesterday striking the right side of his face on the mailbox. He is on Plavix for vascular disease. Reportedly also had an elevated
blood glucose yesterday. At the current time he denies any complaints, specifically denies headache, neck pain, chest pain, or shortness of breath
Past History
<Evert Walden PA-C - Last Filed: 11/16/24 13:19>
Past History
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
ED Past Surgical History: Orthopedic (right heel fracture 2009), Tonsilectomy and Urological
Social History
Tobacco: Smoker
Alcohol: Daily
Drug: None
Personal:
Living: with family
Family History
Family History: Other (reviewed and noncontributory)
Review of Systems
<Frederick Chauhan PA-C - Last Filed: 11/16/24 19:33>
Review of Systems
Allergies reviewed?: Yes
All Other Systems: ROS reviewed and negative except as documented in HPI and ROS
Phy Exam
<Frederick Chauhan PA-C - Last Filed: 11/16/24 19:33>
Physical Exam
Physical Exam:
GEN: Well appearing, NAD, WDWN
HEENT: Abrasion with ecchymosis to the right maxillary face, no gross deformities, otherwise normocephalic and atraumatic with no cephalohematoma ;oral mucosa moist, no scleral icterus, no nasal congestion
Cardiac: Regular rate and rhythm
Lung: No respiratory distress, no tachypnea
MSK: No gross deformity or injuries
Skin: Good color, no pallor or jaundice, no rashes
Neuro: AO x3; CN II-XII grossly intact. BUE strength 5/5 in all chan, sensation intact and symmetric. BLE strength 5/5 in all chan, sensation intact and symmetric, normal [id number] and [id number]-[id number]
Psych: Calm, cooperative
Course
<Evert Walden PA-C - Last Filed: 11/16/24 13:19>
Orders/Labs/Results
Orders:
Orders
11/16/24 13:14
Electrocardiogram (*1) Urgent
Reason for Study: Vertigo / Dizzy
EKG- Treatment ONCE
11/16/24 13:16
CT Head & Neck Angio W/wo IV Urgent
Reason For Exam: falls, dizziness
11/16/24 13:47
Alcohol Urgent
Basic Metabolic Panel Urgent
11/16/24 13:48
Complete Blood Count/With Diff Urgent
11/16/24 15:08
Insulin Aspart [NOVOLOG vial] 12 units SC NOW STA
Lactated Ringers [Lr] 1,000 ml IV BOLUS
11/16/24 16:38
CR Chest Portable - 1 View Urgent
Comment:
Reason For Exam: pneumothorax
Reason Study Needs to be Portable: Other
11/16/24 16:47
IRAD CONSULT Urgent
Consulting Provider: Stepan Bueno
Was physician already notified: Yes
Reason for Consult/Procedure: R chest tube
Acknowledgement that appropriate orders are entered: Yes
11/16/24 17:01
Lidocaine 2% [Xylocaine 2% Mdv] 20 ml .ROUTE .STK-MED ONE
11/16/24 17:40
Fentanyl Citrate/Pf [Sublimaze] 100 mcg .ROUTE .STK-MED ONE
Midazolam HCl [Versed] 2 mg .ROUTE .STK-MED ONE
11/16/24 18:00
Chest Tube As Directed
Location: right
To suction: Yes
Suction to __ centimeters of water: -20
May ambulate with suction off?: Yes
Comment: RECORD OUTPUT FROM CHEST TUBE EVERY SHIFT
11/16/24 18:47
Admit/Transfer Patient As Directed
Co-Sign Provider:
Level of Care: Inpatient admission
Assign to:: Telemetry
Physician / Group: misbah
Diagnosis: right pneumo
Reason for Telemetry: Arrhythmia
Date to Stop Telemetry: 11/19/24
Time to Stop Telemetry: 11:00
Reason for Hospitalization: right pneumo
Expected length of stay greater than two midnights?: Yes
ELOS- Estimated Length of Stay in days: 2
I certify the patient meets the requirements for IP care: Yes
11/16/24 18:48
PRN Pain Medication Management As Directed
May give lesser potent ordered pain med per pt: Yes
preference::
Protocol:: Medication orders for pain may be administered in a
manner that supports deferring to patient preference
when the pt is:
- Requesting an ordered lesser potent pain medication.
Least to most potent pain medications are defined
as: acetaminophen < NSAID < tramadol < opioids
(morphine, oxycodone, hydromorphone).
- Requesting a lesser dose of the same medication IF
ORDERED.
- Requesting a less intrusive route of administration
if both routes are prescribed by the provider (PO <
IV).
11/16/24 18:49
Code Status As Directed
Resuscitation Status: Full Code
11/19/24 11:00
DC Protocol for Telemetry ONCE
Abnormal Lab Results
11/16/24 11/16/24 11/16/24
13:16 13:47 13:48
WBC 11.5 H 10^3/uL
(4.8-10.8)
RDW 15.9 H %
(11.5-14.5)
Absolute Neuts (auto) 8.9 H 10^3/uL
(1.4-6.5)
Absolute Monos (auto) 0.7 H 10^3/uL
(0.1-0.6)
Neutrophils % 78.0 H %
(42.2-75.2)
Lymphocytes % 14.0 L %
(20.5-51.1)
Sodium 128 L mmol/L
(135-145)
Chloride 93 L mmol/L
(98-107)
BUN 36 H mg/dl
(9-20)
Glucose 465 H* mg/dl
(70-99)
POC Glucose 406 H mg/dl
(70-99)
11/16/24 13:48
11/16/24 13:47
Vital Signs
Initial and Last Documented VS:
Initial Vital Signs
Temp Pulse Resp BP Pulse Ox
97.8 F 73 18 141/67 100
11/16/24 13:11 11/16/24 13:11 11/16/24 13:11 11/16/24 13:11 11/16/24 13:11
Last Documented Vital Signs
Temp Pulse Resp BP Pulse Ox
97.8 F 71 20 108/57 90
11/16/24 18:05 11/16/24 19:15 11/16/24 19:15 11/16/24 19:00 11/16/24 19:15
<Frederick Chauhan PA-C - Last Filed: 11/16/24 19:33>
Orders/Labs/Results
Orders:
Orders
11/16/24 13:14
Electrocardiogram (*1) Urgent
Reason for Study: Vertigo / Dizzy
EKG- Treatment ONCE
11/16/24 13:16
CT Head & Neck Angio W/wo IV Urgent
Reason For Exam: falls, dizziness
11/16/24 13:47
Alcohol Urgent
Basic Metabolic Panel Urgent
11/16/24 13:48
Complete Blood Count/With Diff Urgent
11/16/24 15:08
Insulin Aspart [NOVOLOG vial] 12 units SC NOW STA
Lactated Ringers [Lr] 1,000 ml IV BOLUS
11/16/24 16:38
CR Chest Portable - 1 View Urgent
Comment:
Reason For Exam: pneumothorax
Reason Study Needs to be Portable: Other
11/16/24 16:47
IRAD CONSULT Urgent
Consulting Provider: Stepan Bueno
Was physician already notified: Yes
Reason for Consult/Procedure: R chest tube
Acknowledgement that appropriate orders are entered: Yes
11/16/24 17:01
Lidocaine 2% [Xylocaine 2% Mdv] 20 ml .ROUTE .STK-MED ONE
11/16/24 17:40
Fentanyl Citrate/Pf [Sublimaze] 100 mcg .ROUTE .STK-MED ONE
Midazolam HCl [Versed] 2 mg .ROUTE .STK-MED ONE
11/16/24 18:00
Chest Tube As Directed
Location: right
To suction: Yes
Suction to __ centimeters of water: -20
May ambulate with suction off?: Yes
Comment: RECORD OUTPUT FROM CHEST TUBE EVERY SHIFT
11/16/24 18:47
Admit/Transfer Patient As Directed
Co-Sign Provider:
Level of Care: Inpatient admission
Assign to:: Telemetry
Physician / Group: misbah
Diagnosis: right pneumo
Reason for Telemetry: Arrhythmia
Date to Stop Telemetry: 11/19/24
Time to Stop Telemetry: 11:00
Reason for Hospitalization: right pneumo
Expected length of stay greater than two midnights?: Yes
ELOS- Estimated Length of Stay in days: 2
I certify the patient meets the requirements for IP care: Yes
11/16/24 18:48
PRN Pain Medication Management As Directed
May give lesser potent ordered pain med per pt: Yes
preference::
Protocol:: Medication orders for pain may be administered in a
manner that supports deferring to patient preference
when the pt is:
- Requesting an ordered lesser potent pain medication.
Least to most potent pain medications are defined
as: acetaminophen < NSAID < tramadol < opioids
(morphine, oxycodone, hydromorphone).
- Requesting a lesser dose of the same medication IF
ORDERED.
- Requesting a less intrusive route of administration
if both routes are prescribed by the provider (PO <
IV).
11/16/24 18:49
Code Status As Directed
Resuscitation Status: Full Code
11/19/24 11:00
DC Protocol for Telemetry ONCE
Abnormal Lab Results
11/16/24 11/16/24 11/16/24
13:16 13:47 13:48
WBC 11.5 H 10^3/uL
(4.8-10.8)
RDW 15.9 H %
(11.5-14.5)
Absolute Neuts (auto) 8.9 H 10^3/uL
(1.4-6.5)
Absolute Monos (auto) 0.7 H 10^3/uL
(0.1-0.6)
Neutrophils % 78.0 H %
(42.2-75.2)
Lymphocytes % 14.0 L %
(20.5-51.1)
Sodium 128 L mmol/L
(135-145)
Chloride 93 L mmol/L
(98-107)
BUN 36 H mg/dl
(9-20)
Glucose 465 H* mg/dl
(70-99)
POC Glucose 406 H mg/dl
(70-99)
11/16/24 13:48
11/16/24 13:47
Vital Signs
Initial and Last Documented VS:
Initial Vital Signs
Temp Pulse Resp BP Pulse Ox
97.8 F 73 18 141/67 100
11/16/24 13:11 11/16/24 13:11 11/16/24 13:11 11/16/24 13:11 11/16/24 13:11
Last Documented Vital Signs
Temp Pulse Resp BP Pulse Ox
97.8 F 71 20 108/57 90
11/16/24 18:05 11/16/24 19:15 11/16/24 19:15 11/16/24 19:00 11/16/24 19:15
<Frederick Chauhan PA-C - Last Filed: 11/16/24 19:33>
MDM/Problems Addressed
MDM/Problems Addressed:
Patient was identified to have a moderate-sized pneumothorax on CT angiogram incidentally. Upon reassessment he denies any chest pain or shortness of breath however does indicate that with his fall yesterday he had braced himself with his right arm
which was rested against the chest wall. He has no palpable abnormalities to the right chest wall nevertheless due to the size of the pneumothorax will require chest tube. Given his stability he was sent to interventional radiology for chest tube
placement which was uncomplicated. Chest x-ray shows no evidence for acute rib fractures thus the patient is suitable for admission to the hospital here. In regards to his dizziness there is no obvious etiology however the patient's carotid
stenosis does seem to have markedly worsened since his last MRI in 2020 thus may benefit from vascular surgery consultation
<Frederick Chauhan PA-C - Last Filed: 11/16/24 19:33>
Comment
Comment:
EKG independently interpreted by me shows normal sinus rhythm at a rate of [address] changes concerning for ischemia
*Critical Care Note
Total Time (30-74mins, 75-104mins- exclusive of procedures): Not Applicable
ED Attending Note
<Evert Walden PA-C - Last Filed: 11/16/24 13:19>
-
Portions of this chart may have been created with voice recognition software.� Occasional wrong word or��sound alike� substitutions may have occurred due to the inherent limitations of voice recognition software.
Discharge Plan
Departure
Patient Disposition: Admit
Date of Disposition: 11/16/24
Time of Disposition: 17:45
Admit to: ICU
Presentation/result/management discussed w/ accepting MD/DO: Hospitalist
Discharge Problem:
Pneumothorax, Carotid artery stenosis
Interventions
Interventions:
*Risk Screen - Suicide Last Done: 11/16/24 13:11
*General Assessment Last Done: 11/16/24 13:11
*Neglect/Abuse Screening Last Done: 11/16/24 13:11
ED- Fall Risk Assessment Last Done: 11/16/24 13:45
ED- Neurological Assessment Last Done: 11/16/24 13:45
ED- Cardiac Assessment Last Done: 11/16/24 13:45
ED Swallowing Screen Last Done: 11/16/24 13:45
[2024-11-16 14:17] LABS: % Basophils 0.8 % (0-2); % Immature Granulocytes 0.3 % (0-0.5); % Monocytes 5.9 % (1.7-9.3); Absolute Basophils 0.1 10^3/uL (0-0.2); Absolute Eosinophils 0.1 10^3/uL (0-0.7); Absolute Lymphocytes 1.6 10^3/uL (1.2-3.4); Absolute Monocytes 0.7 10^3/uL (0.1-0.6); Absolute Neutrophils 8.9 10^3/uL (1.4-6.5); Hematocrit 41.2 % (39.0-52.0); Hemoglobin 14.2 g/dL (13.0-18.0); Mean Corp Hgb Conc. 34.5 g/dL (33.0-37.0); Mean Corpuscular Hgb 29.7 pg (27.0-31.0); Mean Corpuscular Volume 86.2 fL (80.0-94.0); Mean Platelet Volume 9.3 fL (7.4-10.4); Nucleated Red Blood Cells % 0 % (-); Platelet Count 296 10^3/uL (130-400); Red Blood Cell Count 4.78 10^6/uL (4.70-6.10); Red Cell Dist. Width 15.9 % (11.5-14.5); White Blood Cell Count 11.5 10^3/uL (4.8-10.8)
[2024-11-16 14:40] LABS: Alcohol None Detected; Blood Urea Nitrogen 36 mg/dl (9-20); Calcium 9.9 mg/dl (8.4-10.2); Carbon Dioxide 24 mmol/L (22-30); Chloride 93 mmol/L (98-107); Glucose 465 mg/dl (70-99); Sodium 128 mmol/L (135-145); eGFR > 60.00
[2024-11-16] MEDS: NOVOLOG vial 12 UNITS SC (15:30)
[2024-11-16] MEDS: LR 1000 IV (15:35)
--- NOTE | 2024-11-16 18:55 | HPS.HSE ---
Family Physician
-
Family Physician: Amelia Broussard
Chief Complaint
-
weakness
History of Present Illness
74-year-old male past medical history of alcohol use disorder, type 2 diabetes, hypertension, GERD, peptic ulcer disease, right pontine stroke, COPD, cardiomyopathy, urinary retention likely from enlarged prostate, hypercholesteremia, presenting
with dizziness and weakness and falls over the past several weeks associate with dizziness. When he walks he feels unsteady topples over to 1 side. He may have passed out a few times. He fell yesterday resulting in an abrasion to his cheek which
prompted him to come in today. No chest pain or shortness of breath or cough. No fevers or chills.
He drinks 2 beers every day and sometimes more on the weekends. He used to drink much heavier when he was younger.
No residual symptoms from his prior stroke.
He has been compliant with his insulin.
He smokes 10 to 12 cigarettes/day.
Medical History
Past Medical History
Past Medical History: Reports Other (alcohol use disorder, type 2 diabetes, hypertension, GERD, peptic ulcer disease, right pontine stroke, COPD, cardiomyopathy, urinary retention likely from enlarged prostate, hypercholesteremia)
Past Surgical History: Reports Other (Orthopedic (right heel fracture 2009), Tonsilectomy and Urological)
Social History
Tobacco: Non-smoker
Alcohol: None
Drug: None
Family History
Family History: Not pertinent
Allergies / Home Medications
Allergies reflects when Allergies were last updated in [facility].
Home Medications with original date entered in [facility]
Allergy/Medication List:
Allergies
Allergy/AdvReac Type Severity Reaction Status Date / Time
No Known Allergies Allergy Verified 11/16/24 13:11
Home Medications
enalapril maleate 20 mg tablet 20 mg PO BID Blood pressure 01/30/15
clopidogrel 75 mg tablet 75 mg PO DAILY Blood Clot Prevention/Tx 05/26/23
atorvastatin 80 mg tablet 80 mg PO QPM High Cholesterol 08/19/23
dapagliflozin propanediol 10 mg tablet (Farxiga) 10 mg PO QPM Diabetes 01/21/24
ezetimibe 10 mg tablet 10 mg PO DAILY 01/21/24
insulin NPH isoph U-100 human 100 unit/mL subcutaneous suspension 16 unit SC QPM Diabetes 01/21/24
insulin NPH isoph U-100 human 100 unit/mL subcutaneous suspension 26 unit SC DAILY Diabetes 01/21/24
insulin lispro 100 unit/mL subcutaneous solution (Humalog U-100 Insulin) 1 - 3 unit SC DAILYPRN PRN diabetes 01/21/24
acetaminophen 500 mg tablet 1,000 mg PO DAILYPRN PRN mild pain 07/06/24
tamsulosin 0.4 mg capsule 0.4 mg PO DAILY 11/16/24
Review of Systems
-
History Source: Patient
A 12 point ROS was completed and negative except as noted: Yes
Constitutional: Reports No Symptoms
EENT: Reports No Symptoms
Respiratory: Reports No Symptoms
Cardiac: Reports No Symptoms
Abdomen/GI: Reports No Symptoms
: Reports No Symptoms
Musculoskeletal: Reports No Symptoms
Skin: Reports No Symptoms
Neurological: Reports No Symptoms
Endocrine: Reports No Symptoms
Hematologic/Lymphatic: Reports No Symptoms
Psych: Reports No Symptoms
Physical Exam
Vital Signs
Vital Signs
Temp Pulse Resp BP Pulse Ox
97.8 F 74 23 102/60 98
11/16/24 18:05 11/16/24 18:45 11/16/24 18:45 11/16/24 18:30 11/16/24 18:27
Physical Exam
General: Well Developed, Well Nourished and No Apparent Distress
HEENT: NormoCephalic, Moist mucous membranes and Atraumatic
Respiratory: Clear
Cardiac: S1/S2 and Regular Rhythm; No Murmur or Rub
GI: Soft, Non Tender, Non Distended and Normal Bowel Sounds; No Organomegaly
Rectal: Deferred by Provider
Musculoskeletal: No Clubbing, No Cyanosis and No Edema
Skin: No Rash
Neuro: Nonfocal/grossly intact
Laboratory Results
-
11/16/24 13:48
11/16/24 13:47
Laboratory Results
Total Bilirubin Cancelled 11/16/24 13:47
AST Cancelled 11/16/24 13:47
ALT Cancelled 11/16/24 13:47
Alkaline Phosphatase Cancelled 11/16/24 13:47
Data Reviewed
-
Lab Data: Labs Reviewed by me
Old Records: Reviewed
Impression/Plan
-
IMPRESSION:
PLAN:
# Fall resulting in moderate right pneumothorax
-Chest tube placed
-Pulmonary consulted
# Ongoing dizziness/weakness and falls/unsteadiness
-Alcohol level negative
-Orthostatic vital signs
-Check TSH, B12
-Likely related to alcohol use
-Check MRI brain to evaluate for further CVA given carotid artery stenosis
# Left carotid artery stenosis
-CTA shows bilateral carotid bifurcation calcified atherosclerosis contribute to 80% stenosis left carotid bulb and 50% of the right carotid bulb
-Vascular surgery consulted
# Type 2 diabetes
# Hyperglycemia
-Continue NPH 26 units daily, 16 units p.m.
-12 units of NovoLog given
-Check A1c
-Moderate insulin sliding scale
# Pseudohyponatremia secondary to hyperglycemia
-Continue to monitor
# Minimally displaced 10th rib fracture
-From prior chest x-ray on 10/31
COPD
Active smoker
-Nicotine patch
Cardiomyopathy
-Continue dapagliflozin
Right pontine CVA
-Continue Plavix, statin
Alcohol use disorder
-Thiamine and folate
-Alcohol withdrawal protocol
Essential hypertension
-Continue enalapril
GERD
Peptic ulcer disease
Urinary retention secondary to BPH
-Continue tamsulosin
Hypercholesterolemia
-Continue statin, Zetia
Full code
DVT prophylaxis�SCDs
Diabetic diet
[2024-11-16 21:14] LABS: Glucose - Point of Care 37 mg/dl (70-99)
--- NOTE | 2024-11-16 21:17 | PTCARENOTE ---
Received patient from ED via stretcher; Telemetry order> sinus rhythm w/ PVCs on monitor, Afebrile, HR 62, RR 18, BP 152/68, pox 97% room air. Pain 2/10 site of chest tube. x1 assist to bed. general weakness.
Right chest tube intact- Per MD order, closed chest drainage system to wall suction, amount of suction 20 cm of water. Dressing C/D/I, negative for crepitus, air leak. B/L lung sounds diminished.
Patient IDDM- BSG 37- hypoglycemic protocol in place.
MSAS protocol ordered- score zero.
PMH and medications reviewed by this RN and patient. Patient oriented to room. Call soto within place.
[2024-11-16 21:31] LABS: Glucose - Point of Care 42 mg/dl (70-99)
[2024-11-16 21:46] LABS: Glucose - Point of Care 76 mg/dl (70-99)
[2024-11-16] MEDS: VASOTEC 20 MG PO (22:07)
[2024-11-16] MEDS: THIAMINE INJECTION IV (22:08)
--- NOTE | 2024-11-16 22:35 | PTCARENOTE ---
PMH of Chronic, subtotal urinary retention s/p TURP 06/[address] Gutierrez. Pt States that he is suppose to self cath TID but only does HS.
Bladder scanned for 838ml. House SENIOR BIOINFORMATICS SCIENTIST notified. Order entered for pt to self cath. Pt cath for a total of 900ml (yellow) urine.
[2024-11-16] MEDS: PLAVIX 75 MG PO (22:37)
[2024-11-16 23:30] LABS: TSH Reflex To Free T4 1.54 uIU/ml (0.47-4.68)
[2024-11-16 23:49] LABS: Glucose - Point of Care 336 mg/dl (70-99)
[2024-11-16 23:49] LABS: Vitamin B12 575 pg/ml (239-931)
[2024-11-16] MEDS: TYLENOL 1000 MG PO (23:49)
[2024-11-17] VITALS (8 sets, daily range): BP systolic 94–184; BP diastolic 51–104
[2024-11-17 01:46] LABS: Glucose - Point of Care 299 mg/dl (70-99)
[2024-11-17 03:20] LABS: Glucose - Point of Care 266 mg/dl (70-99)
--- NOTE | 2024-11-17 07:13 | W.PN.HOSP.TC ---
Today's Communication/Plan
-
Potassium improved after hyperkalemia treatment ordered
Recheck BMP this evening
Recheck CBC this evening given coffee-ground emesis
Bedrest for now (discussed with nurse)
Assessment / Plan
Assessment / Plan
Physical Exam
General: Well Developed, Well Nourished and No Apparent Distress
HEENT: Normocephalic, Moist mucous membranes and Atraumatic
Respiratory: Clear to Auscultation Bilaterally
Cardiac: S1/S2 and Regular Rhythm
GI: Soft, Non Tender, Non Distended and Normal Bowel Sounds
Musculoskeletal: No Cyanosis and No Edema
Skin: Warm. Dry.
Neuro: Alert. Awake. Nonfocal/grossly intact bilaterally.
Assessment/Plan
74-year-old male past medical history of alcohol use disorder, type 2 diabetes mellitus, hypertension, GERD, peptic ulcer disease, right pontine stroke, COPD, cardiomyopathy, urinary retention likely from enlarged prostate and hypercholesteremia,
presented with dizziness and weakness and falls over the several weeks (prior to presentation) associated with dizziness. When he walks he feels unsteady topples over to 1 side. He may have passed out a few times. He fell the day before
presentation, resulting in an abrasion to his cheek which prompted him to come in to the ER. No chest pain or shortness of breath or cough. No fevers or chills. He drinks 2 beers every day and sometimes more on the weekends. He used to drink much
heavier when he was younger. No residual symptoms from his prior stroke. He has been compliant with his insulin. He smokes 10 to 12 cigarettes/day.
# Fall resulting in moderate right pneumothorax
-Chest tube placed
-Pulmonary consulted: chest tube to waterseal today, repeat CXR tomorrow morning
# Ongoing dizziness/weakness and falls/unsteadiness
# Recent Episodes of Possible Syncope
-Alcohol level negative
-Bed Rest for now, as concern for patient developing orthostatic symptoms when sitting/standing
-TSH normal at 1.54, and Vitamin B12 normal at 575
-Likely related to alcohol use
-Follow-up MRI Brain report
-Neurology consulted as per vascular surgery's request to consult neurology; neurology communicated via [place] [facility] that this can be managed as an
outpatient, and that patient denies weakness or dizziness, just complaining of falls. Exam with a little bit of Parkinson�s; the right parietooccipital infarction
on head ct is in the MCA territory but it looks old so therefore not an inpatient problem.
-Neurology communicated via [place] [facility] that
# Left carotid artery stenosis
-CTA showed bilateral carotid bifurcation calcified atherosclerosis contribute to 80% stenosis left carotid bulb and 50% of the right carotid bulb
-Vascular surgery consulted -- vascular surgery requested hospitalist consult neurology therefore neurology consult placed
#Hyperkalemia
-His potassium is also 5.8 --> 6.2 in a matter of hours
-Ordered Ross gluconate, Insulin, Dextrose, Lasix, and Albuterol
-Held patient's Enalapril
-Given rapid rise (within hours) in potassium with potassium going into the 6+ range, consulted nephrology
-Repeat BMP/potassium ordered -- improvement in potassium
-Recheck BMP this evening
#Upper GI Bleed/Copious Coffee Ground Emesis on 11/17/24
-Protonix 40 mg IV BID started
-PRN IV antiemetics
-GI consulted for evaluation of EGD
-Suspected component of esophagitis causing patient's symptoms versus gastritis/duodenitis versus less likely other etiologies
-Per GI, deferring any plans for an EGD given pneumothorax.
-Recheck CBC this evening
# Type 2 Diabetes Mellitus
# Hyperglycemia
-Continue Insulin and accuchecks
-Diabetes TUNNEL DRIER OPERATOR consulted, appreciate evaluation and recommendations
# Pseudohyponatremia secondary to hyperglycemia
-Continue to monitor
# Minimally displaced 10th rib fracture
-From prior chest x-ray on 10/31
COPD
Active smoker
-Nicotine patch
Cardiomyopathy
-Continue dapagliflozin
Right pontine CVA
-Continue Plavix, statin
Alcohol use disorder
-Thiamine and folate
-Alcohol withdrawal protocol
Essential hypertension
-Continue enalapril
GERD
Peptic ulcer disease
Urinary retention secondary to BPH
-Continue tamsulosin
-Bladder scans protocol/monitor for urinary retention
Hypercholesterolemia
-Continue statin, Zetia
Code Status: Full code
DVT Prophylaxis: SCDs. No chemical DVT prophylaxis given coffee ground emesis.
Diabetic diet
Anticipated Discharge: > 48 hours
Subjective/Interval History
-
Date of Service: November 17, 2024
Patient was seen and examined. He denied any complaints.
Objective Data
-
Labs:
Laboratory Results
11/17/24
06:38
WBC Pending
Hgb Pending
Hct Pending
Plt Count Pending
Sodium Pending
Potassium Pending
Chloride Pending
Carbon Dioxide Pending
BUN Pending
Creatinine Pending
Glucose Pending
Calcium Pending
Total Bilirubin Pending
AST Pending
ALT Pending
Alkaline Phosphatase Pending
Vital Signs:
Vital Signs
Temp Pulse Resp BP Pulse Ox
97.9 F 72 18 168/86 96
11/17/24 03:00 11/17/24 03:00 11/17/24 03:00 11/17/24 03:00 11/17/24 03:00
I&O
11/16/24 11/17/24 11/18/24
06:59 06:59 06:59
Intake Total 1300 / 1300
Output Total 910 / 910
Balance 390 / 390
[2024-11-17 07:21] LABS: % Basophils 0.4 % (0-2); % Eosinophils 1.4 % (0-6); % Immature Granulocytes 0.4 % (0-0.5); % Lymphocytes 9.1 % (20.5-51.1); % Monocytes 5.6 % (1.7-9.3); % Neutrophils 83.1 % (42.2-75.2); Absolute Eosinophils 0.1 10^3/uL (0-0.7); Absolute Lymphocytes 0.9 10^3/uL (1.2-3.4); Absolute Monocytes 0.6 10^3/uL (0.1-0.6); Absolute Neutrophils 8.5 10^3/uL (1.4-6.5); Hematocrit 44.6 % (39.0-52.0); Hemoglobin 15.3 g/dL (13.0-18.0); Mean Corp Hgb Conc. 34.3 g/dL (33.0-37.0); Mean Corpuscular Volume 84.5 fL (80.0-94.0); Mean Platelet Volume 8.8 fL (7.4-10.4); Nucleated Red Blood Cells % 0 % (-); Platelet Count 274 10^3/uL (130-400); Red Blood Cell Count 5.28 10^6/uL (4.70-6.10); Red Cell Dist. Width 15.7 % (11.5-14.5); White Blood Cell Count 10.2 10^3/uL (4.8-10.8)
[2024-11-17 07:52] LABS: Glucose - Point of Care 309 mg/dl (70-99)
[2024-11-17] MEDS: FOLVITE 1 MG PO (08:41)
[2024-11-17] MEDS: ZETIA 10 MG PO (08:41)
[2024-11-17] MEDS: FLOMAX 0.4 MG PO (08:41)
[2024-11-17] MEDS: VASOTEC 20 MG PO (08:41)
[2024-11-17] MEDS: THIAMINE INJECTION IV ×3 (08:42→20:45)
[2024-11-17] MEDS: HUMULIN N KWIKPEN 26 UNITS SC (08:43)
--- NOTE | 2024-11-17 09:12 | CON.VAS ---
Addendum entered and electronically signed by Tru Guzman III, MD 11/17/24 11:50:
This patient was seen and examined in collaboration with DORY Vo. I agree with the history and physical exam as well as the assessment and plan. I have the following additions:
2 recent falls, both significant
rib fracture and pneumothorax
He reports falls were spontaneous and were not preceded by any neurologic event
He specifically denies slurred speech, facial droop, monocular vision loss, asymmetric upper/lower extremity weakness or numbness. Denies recent stroke or TIA.
Workup included CT angiogram of the head and neck which demonstrated calcified carotid stenosis on the left. I performed centerline reconstructions of the CT angiogram images. There is a focal area of stenosis at the proximal internal carotid
artery.
Recommend obtaining baseline carotid duplex
Neurology consult
This is likely asymptomatic carotid stenosis and will plan for outpatient follow-up unless otherwise recommended by neurology
Signed:
Tru Guzman III, MD
[facility] Vascular Surgery
[phone] (tdys)
Original Note:
Consultation
Consultation Request
Date/Time Consultation Performed: 11/17/24 0800
Requesting Provider: Hospitalist
Performing Provider: JOEY Harry for Tru Guzman III, MD
Reason for Consultation: Left carotid stenosis
Medical History
-
Chief Complaint: Falls
History of Present Illness:
This is a 74-year-old male with significant past medical history for right pontine stroke, GERD, hypertension, hypercholesterolemia, diabetes, peptic ulcer disease, COPD, cardiomyopathy, urinary retention, and alcohol use who presented to [facility]
ED on 11/16/2024 with reports of ongoing falls, unsteady gait, and dizziness/lightheadedness. Patient endorses that he has been experiencing weakness, falls, unsteady gait leaning to one side, and dizziness over the past 2 to 3 weeks. He notes that
he fell twice in the past 2 to 4 days. Most recent fall was 2 days ago landing on his face in in his driveway, EMS was activated by his at that time when they arrived they recommended he be taken to a local hospital but he declined at that
time. He then reported to the ED yesterday on 11/16/2024 at the encouragement of his . ED evaluation was significant for rib fracture and right pneumothorax requiring chest tube placement. Vascular surgery has been consulted for left carotid
stenosis given symptoms suspect asymptomatic. He denies unilateral weakness, dysarthria, aphasia, or vision changes. He denies residual effects following his 2015 right pontine stroke.
Past Medical History
Past Medical History: CHF, COPD, CVA, HTN, Hypercholesterolemia, IDDM and Other (Urinary retention)
Social History
Tobacco: Smoker
Alcohol: Daily (Endorses drinking roughly 2 beers a day possibly more on the weekends)
Allergies / Home Medications
Allergy/AdvReac Type Severity Reaction Status Date / Time
No Known Allergies Allergy Verified 11/16/24 13:11
�Medication �Instructions �Recorded �Confirmed �Type
enalapril maleate 20 mg tablet 20 mg PO BID Blood pressure 01/30/15 11/16/24 History
clopidogrel 75 mg tablet 75 mg PO DAILY Blood Clot 05/26/23 11/16/24 History
Prevention/Tx
atorvastatin 80 mg tablet 80 mg PO QPM High Cholesterol 08/19/23 11/16/24 History
dapagliflozin propanediol 10 mg 10 mg PO QPM Diabetes 01/21/24 11/16/24 History
tablet (Farxiga)
ezetimibe 10 mg tablet 10 mg PO DAILY 01/21/24 11/16/24 History
insulin NPH isoph U-100 human 100 16 unit SC QPM Diabetes 01/21/24 11/16/24 History
unit/mL subcutaneous suspension
insulin NPH isoph U-100 human 100 26 unit SC DAILY Diabetes 01/21/24 11/16/24 History
unit/mL subcutaneous suspension
insulin lispro 100 unit/mL 1 - 3 unit SC DAILYPRN PRN diabetes 01/21/24 11/16/24 History
subcutaneous solution (Humalog
U-100 Insulin)
acetaminophen 500 mg tablet 1,000 mg PO DAILYPRN PRN mild pain 07/06/24 11/16/24 History
tamsulosin 0.4 mg capsule 0.4 mg PO DAILY 11/16/24 11/16/24 History
Review of Systems
-
History Source: Patient
Constitutional: Reports No Symptoms
EENT: Reports No Symptoms
Respiratory: Reports No Symptoms
Cardiac: Reports No Symptoms
Abdomen/GI: Reports No Symptoms
: Reports No Symptoms
Musculoskeletal: Reports No Symptoms
Skin: Reports No Symptoms
Neurological: Reports Dizzy, Weakness and Other (Unsteady gait and increased falls)
Physical Exam
Vital Signs
Temp Pulse Resp BP Pulse Ox
98.0 F 89 17 166/67 97
11/17/24 07:57 11/17/24 07:57 11/17/24 07:57 11/17/24 07:57 11/17/24 07:57
Lab Results
11/17/24 06:38
Physical Exam
General: No Apparent Distress and Comfortable
HEENT: Normocephalic, Anicteric and Other (Right cheek contusion)
Respiratory: Non Labored Respirations
Cardiac: Negative JVD
GI: Soft, Non Tender and Non Distended
Musculoskeletal: No Edema
Skin: Warm
Assessment / Plan
-
Assessment: 74-year-old male admitted for right pneumothorax and workup for increased falls, incidental finding on CTA head and neck of left ICA stenosis
Plan:
Recommend neurology consultation to help evaluate whether this is symptomatic versus asymptomatic carotid stenosis, given vague reports and only complaints are of falling suspect this is asymptomatic which can be worked up in the outpatient setting
however would appreciate their input.
I performed this shared service with the attending. I evaluated the patient [id number] and have entered clinical documentation as shown in the encounter note. I performed the following component(s):�history and physical exam. Note that medical
decision making is not final until attested by vascular attending.
[2024-11-17 10:03] LABS: Glycohemoglobin (HgbA1c) 9.8 % (4.0-5.6)
[2024-11-17 10:15] LABS: ALT (SGPT) 23 U/L (0-50); AST (SGOT) 25 U/L (17-59); Alkaline Phosphatase 110 U/L (38-126); Blood Urea Nitrogen 27 mg/dl (9-20); Calcium 9.8 mg/dl (8.4-10.2); Carbon Dioxide 23 mmol/L (22-30); Chloride 96 mmol/L (98-107); Estimated Creatinine Clearance 53 ml/min; Glucose 322 mg/dl (70-99); Potassium 5.8 mmol/L (3.5-5.1); Sodium 133 mmol/L (135-145); Total Protein 7.1 g/dl (6.3-8.2); eGFR > 60.00
--- NOTE | 2024-11-17 10:37 | CON.NEURO ---
Neuro Assessment/Plan
Assessment
Orthostatic vital signs were negative
Head CT imgs rev'd and discussed with patient, small area of infarct right parieto-occipital junction, MCA territory, could be the related to the Right carotid stenosis. Stable chronic lacunar infarcts in bilateral basal ganglia, left thalamus,
right cerebellum. these four appear to be related to small vessel disease.
CTA head/neck imgs rev'd with patient, showing Left Carotid Bulb 80% stenosis, right carotid bulb 50% stenosis
I don't think the patients' dizziness and falls are related to his carotid disease. He may benefit from carotid interventions bilaterally to lower his stroke risk, but it does not address his presenting complaints, and should therefore be considered
as an outpatient. I don't believe that a brain MRI, even if we find stroke #6, changes this reasoning, and he should stay on Plavix 75 and Lipitor 80, unless the Plavix needs to be held for GI bleeding
I believe his falls, handwriting changes, and possibly the dizziness is which is mild, due to Parkinson's disease, discussed starting Sinemet, they want to think about this
Consultation
Order
Date of Consultation: 11/17/24
Requesting Provider: Reuben Quinones
Reason for Consult: carotid stenosis
Subjective/Objective
Subjective Data
Date of Service: November 17, 2024
From H&P:
74-year-old male past medical history of alcohol use disorder, type 2 diabetes, hypertension, GERD, peptic ulcer disease, right pontine stroke, COPD, cardiomyopathy, urinary retention likely from enlarged prostate, hypercholesteremia, presenting
with dizziness and weakness and falls over the past several weeks associate with dizziness. When he walks he feels unsteady topples over to 1 side. He may have passed out a few times. He fell yesterday resulting in an abrasion to his cheek which
prompted him to come in today. No chest pain or shortness of breath or cough. No fevers or chills. Found to have right pneumothorax, chest tube placed.
Neurology consulted to determine if his presenting symptoms are the result of symptomatic carotid stenosis.
this morning he admitted to multiple falls over recent weeks. had dizziness/lightheadedness this morning. No tremors. His handwriting has been worsening over the past few years.
Objective Data
Vital Signs
Temp Pulse Resp BP Pulse Ox
36.7 C 89 17 166/67 97
11/17/24 07:57 11/17/24 07:57 11/17/24 07:57 11/17/24 07:57 11/17/24 07:57
Lab Results
11/17/24 06:38
11/17/24 06:38
Sodium 133 mmol/L (135-145) L 11/17/24 06:38
Potassium 5.8 mmol/L (3.5-5.1) H 11/17/24 06:38
BUN 27 mg/dl (9-20) H 11/17/24 06:38
Glucose 322 mg/dl (70-99) H 11/17/24 06:38
Calcium 9.8 mg/dl (8.4-10.2) 11/17/24 06:38
Vitamin B12 575 pg/ml (239-931) 11/16/24 13:48
Patient Allergies
No Known Allergies Allergy (Verified 11/16/24 13:11)
Physical Exam
-
AAOx3, speech clear, language intact
VFF, EOMI, face symmetric
micrographia
full strength b/l UE/LE
subtle cogwheeling and lead pipe with contralateral activation
+bradykinesia
normal reciprocal gait, small steps
Medications
-
Active Medications
Generic Name Dose Route Start Last Admin
Trade Name Freq PRN Reason Stop Dose Admin
Acetaminophen 1,000 mg 11/16/24 20:52 11/16/24 23:49
Acetaminophen 500 Mg Tablet PO 12/14/24 20:51 1,000 mg
DAILYPRN PRN Administration
mild pain
Atorvastatin Calcium 80 mg 11/17/24 18:00
Atorvastatin (Lipitor) 80 Mg Tablet PO 12/15/24 17:59
QPM TRAN
Clopidogrel Bisulfate 75 mg 11/17/24 18:00
Clopidogrel 75 Mg Tablet PO 12/15/24 17:59
DAILY@1800 TRAN
Dapagliflozin 10 mg 11/17/24 18:00
Dapagliflozin (Farxiga) 10 Mg Tablet PO 12/15/24 17:59
QPM TRAN
Dextrose 12.5 grams 11/16/24 20:52
Dextrose 50% (0.5 Grams/Ml) 50 Ml Syringe IV 12/14/24 20:51
[id number] PRN
hypoglycemia
Protocol
Ezetimibe 10 mg 11/17/24 08:00 11/17/24 08:41
Ezetimibe (Zetia) 10 Mg Tablet PO 12/15/24 07:59 10 mg
DAILY TRAN Administration
Enalapril Maleate 20 mg 11/16/24 22:00 11/17/24 08:41
Enalapril 10 Mg Tablet PO 12/14/24 21:59 20 mg
BID TRAN Administration
Folic Acid 1 mg 11/17/24 08:00 11/17/24 08:41
Folic Acid 1 Mg Tablet PO 12/15/24 07:59 1 mg
DAILY TRAN Administration
Glucagon 1 mg 11/16/24 20:52
Glucagon 1 Mg Vial IM 12/14/24 20:51
PRN PRN
hypoglycemia
Protocol
Folic Acid 1 mg/ Sodium 50.2 mls @ 200.8 mls/hr 11/16/24 20:52
Chloride IV 12/14/24 20:51
DAILYPRN PRN
if NPO
Insulin Aspart 0 units 11/17/24 07:30 11/17/24 08:44
Insulin Aspart Moderate Resistance 300 Units/3 Ml Pen.Injctr SC 12/15/24 07:29 7 units
AC TRAN Administration
Protocol
Insulin Human NPH 16 units 11/17/24 18:00
Insulin Nph (100 Units/Ml) 3 Ml Kwikpen SC 12/15/24 17:59
QPM TRAN
Insulin Human NPH 26 units 11/17/24 08:00 11/17/24 08:43
Insulin Nph (100 Units/Ml) 3 Ml Kwikpen SC 12/15/24 07:59 26 units
DAILY TRAN Administration
Lorazepam 1 mg 11/16/24 20:52
Lorazepam 1 Mg Tablet PO 12/14/24 20:51
Q2HPRN PRN
MSAS 5-7
Lorazepam 1 mg 11/16/24 20:52
Lorazepam 2 Mg/Ml Vial IV 12/14/24 20:51
Q1HPRN PRN
MSAS 8-11
Lorazepam 2 mg 11/16/24 20:52
Lorazepam 2 Mg/Ml Vial IV 12/14/24 20:51
Q1HPRN PRN
MSAS > 11
Sodium Chloride 0 ml 11/16/24 20:52
Sodium Chloride 0.9% (Preservative Free) 10 Ml Vial IV 12/14/24 20:51
PRN PRN
To dilute IV Ativan
Protocol
Sodium Chloride 0 flush 11/16/24 21:00
Sodium Chloride 0.9% (Flush) Syringe IV 12/14/24 20:59
PER PROTOCOL TRAN
Tamsulosin HCl 0.4 mg 11/17/24 08:00 11/17/24 08:41
Tamsulosin 0.4 Mg Capsule PO 12/15/24 07:59 0.4 mg
DAILY TRAN Administration
Thiamine HCl 200 mg 11/16/24 20:52 11/17/24 08:42
Thiamine (100 Mg/Ml) 2 Ml Vial IV 11/19/24 08:01 Not Given
Q12 TRAN
Thiamine HCl 100 mg 11/19/24 20:00
Thiamine 100 Mg Tablet PO 12/17/24 19:59
BID TRAN
Home Medications
�Medication �Instructions �Recorded
enalapril maleate 20 mg tablet 20 mg PO BID Blood pressure 01/30/15
clopidogrel 75 mg tablet 75 mg PO DAILY Blood Clot 05/26/23
Prevention/Tx
atorvastatin 80 mg tablet 80 mg PO QPM High Cholesterol 08/19/23
dapagliflozin propanediol 10 mg 10 mg PO QPM Diabetes 01/21/24
tablet (Farxiga)
ezetimibe 10 mg tablet 10 mg PO DAILY 01/21/24
insulin NPH isoph U-100 human 100 16 unit SC QPM Diabetes 01/21/24
unit/mL subcutaneous suspension
insulin NPH isoph U-100 human 100 26 unit SC DAILY Diabetes 01/21/24
unit/mL subcutaneous suspension
insulin lispro 100 unit/mL 1 - 3 unit SC DAILYPRN PRN diabetes 01/21/24
subcutaneous solution (Humalog
U-100 Insulin)
acetaminophen 500 mg tablet 1,000 mg PO DAILYPRN PRN mild pain 07/06/24
tamsulosin 0.4 mg capsule 0.4 mg PO DAILY 11/16/24
--- NOTE | 2024-11-17 11:15 | PTCARENOTE ---
patient found having brown/ clear with coffee ground emesis in urinal. Patient sitting in chair comfortably. MSAS is a 2. Chest tube in place connected to suction with no crepitus. MD notified. No new orders at this time
[2024-11-17 11:33] LABS: Glucose - Point of Care 336 mg/dl (70-99)
[2024-11-17 12:21] LABS: Blood Urea Nitrogen 31 mg/dl (9-20); Carbon Dioxide 26 mmol/L (22-30); Chloride 92 mmol/L (98-107); Estimated Creatinine Clearance 53 ml/min; Glucose 407 mg/dl (70-99); Potassium 6.2 mmol/L (3.5-5.1); Sodium 133 mmol/L (135-145); eGFR > 60.00
[2024-11-17] MEDS: NSS (PRESERVATIVE FREE) 10 ML IV ×2 (12:38→20:34)
[2024-11-17] MEDS: PROTONIX IV 40 MG IV ×2 (12:38→20:34)
[2024-11-17] MEDS: APRESOLINE 5 MG IV ×2 (12:39→20:31)
[2024-11-17] MEDS: NOVOLOG FLEXPEN-MODERATE RESISTANCE 7 UNITS SC (12:41)
--- NOTE | 2024-11-17 12:50 | CON.GI ---
Addendum entered and electronically signed by Karthik Rudd DO 11/17/24 16:11:
I saw and examined the patient.
The RESEARCH COMPLIANCE SPECIALIST's note was reviewed and I agree with the detailed note as outlined below.
Comment: Etiology of patient's coffee ground emesis likely from erosive esophagitis given his uncontrolled reflux, daily alcohol use, and known hiatal hernia versus gastroduodenal erosions versus gastroduodenitis. Much less likely PUD given his
stable Hgb and without any melena or bloody stools. No other concern for a brisk GIB. His last BM was yesterday with brown stool. BUN is elevated but suspect secondary due to hypovolemia given his vomiting rather than from a brisk UGIB. Otherwise,
no other abdominal pain/discomfort concerning for any other intra-abdominal process (ie ileus, etc) to account for his emesis. Although patient would benefit from a diagnostic EGD given his previous history of gastric ulcers (seen back during a
prior EGD 04/2013), would defer any plans for an endoscopy in light of his recent pneumothorax (s/p chest tube placement). Favor conservative measures with IV PPI and treating nausea/vomiting with anti-emetics and ongoing supportive care.
Recommendations:
- CLD only today, then may ADAT tomorrow if no further episodes
- IV PPI 40 mg BiD
- Trend Hgb with serial CBC
- Plavix remains on hold. Okay to resume plavix from GI standpoint if needed
- No plans for any upper endoscopy at this time given his recent pneumothorax
- Can likely plan for an EGD as an outpatient along with a colonoscopy at that time as he is overdue in terms of surveillance
- Strict avoidance of all NSAIDs, limit EtOH
- Monitor for any signs of recurrent GI bleeding
- Rest of care as outlined below
GI team will sign-off. Please call back with any questions or concerns.
Thank you for allowing me to participate in the care of this patient. Please do not hesitate to call for any further questions.
Original Note:
Consultation
-
Date/Time Consultation Requested: 11/17/24 1123
Date/Time Consultation Performed: 11/17/24 1230
Requesting Provider: Dr. Quinones
Performing Provider: Dr. Savage/DORY Canada
Reason for Consultation: coffee ground emesis
Medical History
Chief Complaint / HPI
Chief Complaint: fall
History of Present Illness:
74-year-old male with past medical history of insulin-dependent diabetes, cardiomyopathy, COPD, gastric ulcers, daily alcohol use, hypertension, hyperlipidemia, tobacco use, CVA (right pontine January 2015), colon polyps, urinary retention who presented
to the emergency room on 11/16/2024 after having falls and dizziness. The patient had a fall at home resulting in injury to his face. He was found to have a right pneumothorax. Minimally displaced 10th rib fracture. A right chest tube was placed.
We are asked to evaluate for coffee ground emesis. I discussed with patient as well as his who is at bedside. He states that for the past week he has have heartburn. He does not take anything for this. He has a remote history of gastric
ulcers in 2012. He takes Plavix on a daily basis. He drinks 2 beers daily. He states that on occasion he drinks a little bit more however denies any use beyond more than a case of beer a week. His agrees with that assessment. He takes 2
Tylenol at bedtime. He denies any aspirin or ibuprofen use. She states that his blood sugar was more elevated leading up to admission. She states she does notice that there has been some brown staining on his pillowcase however she does state
that he eats chocolate at night for potential hypoglycemia. The patient states that while he was getting carotid ultrasound he felt 'gunky'. He cannot elaborate further and the fact that he is not sure if he felt dizziness in his head, sinus
symptoms or chest congestion. He denied any GI leg complaints. When he got back up to the floor he spit up clear fluid with some coffee grounds and then promptly vomited approximately 350 cc of coffee-ground material. This morning he ate partial
blueberry muffin. He had a negative alcohol level on arrival. He denies any abdominal pain. There is no pain on palpation. The patient denies any fevers, chills, melena, hematochezia, dysphagia or dyne aphasia. No early satiety or unintentional
weight loss. He does ask somewhat spontaneously at the present time as he tried to get out of bed with chest tube placed. I reminded him that he has a chest tube and he cannot do that. There was a bed alarm that was secured and it did alarm. WBC
10.2, hemoglobin 15.3, (up from 14.2) hematocrit 44.6, platelets 274, sodium 133, potassium 6.2, chloride 92, CO2 26, BUN 31, (up from 27) creatinine 1.0, glucose 407, hemoglobin A1c 9.8, calcium 10.0, total bilirubin 1.0, AST 25, ALT 23, alk phos
110, albumin 4.0.
Past Medical History
Past Medical History: COPD, CVA, HTN, Hypercholesterolemia, IDDM and Other (Cardiomyopathy, gastric ulcers, tobacco abuse, colon polyps, urinary retention)
Past Surgical History: Other (Right heel fracture, tonsillectomy, urological procedure)
Social History
Tobacco: Smoker
Alcohol: Daily (At least 2 beers daily, no more than 24 beers a week)
Drug: None
Personal:
Living: With Family
Employment: Retired
Family History
Family History: Other (No family history of gastrointestinal malignancy or IBD)
Allergies / Home Medications
Allergy/AdvReac Type Severity Reaction Status Date / Time
No Known Allergies Allergy Verified 11/16/24 13:11
�Medication �Instructions �Recorded
enalapril maleate 20 mg tablet 20 mg PO BID Blood pressure 01/30/15
clopidogrel 75 mg tablet 75 mg PO DAILY Blood Clot 05/26/23
Prevention/Tx
atorvastatin 80 mg tablet 80 mg PO QPM High Cholesterol 08/19/23
dapagliflozin propanediol 10 mg 10 mg PO QPM Diabetes 01/21/24
tablet (Farxiga)
ezetimibe 10 mg tablet 10 mg PO DAILY 01/21/24
insulin NPH isoph U-100 human 100 16 unit SC QPM Diabetes 01/21/24
unit/mL subcutaneous suspension
insulin NPH isoph U-100 human 100 26 unit SC DAILY Diabetes 01/21/24
unit/mL subcutaneous suspension
insulin lispro 100 unit/mL 1 - 3 unit SC DAILYPRN PRN diabetes 01/21/24
subcutaneous solution (Humalog
U-100 Insulin)
acetaminophen 500 mg tablet 1,000 mg PO DAILYPRN PRN mild pain 07/06/24
tamsulosin 0.4 mg capsule 0.4 mg PO DAILY 11/16/24
Review of Systems
-
All other systems: A 12 pt ROS was Negative except as stated above in HPI
Vital Signs
Temp Pulse Resp BP Pulse Ox
98.0 F 91 17 184/97 98
11/17/24 11:24 11/17/24 12:39 11/17/24 11:24 11/17/24 12:39 11/17/24 12:12
Physical Exam
Exam
General: No Apparent Distress
HEENT: Anicteric
Respiratory: Clear (Anterior, right sided chest tube)
Cardiac: Regular Rhythm
GI: Soft, Non Tender, Non Distended and Normal Bowel Sounds
Skin: Warm and Dry
Neuro: AO x 3
Psych: Calm
Results
WBC 10.2 10^3/uL (4.8-10.8) 11/17/24 06:38
Hgb 15.3 g/dL (13.0-18.0) 11/17/24 06:38
Hct 44.6 % (39.0-52.0) 11/17/24 06:38
MCV 84.5 fL (80.0-94.0) 11/17/24 06:38
Plt Count 274 10^3/uL (130-400) 11/17/24 06:38
Absolute Neuts (auto) 8.5 10^3/uL (1.4-6.5) H 11/17/24 06:38
Sodium 133 mmol/L (135-145) L 11/17/24 11:29
Potassium 6.2 mmol/L (3.5-5.1) H* 11/17/24 11:29
Chloride 92 mmol/L (98-107) L 11/17/24 11:29
Carbon Dioxide 26 mmol/L (22-30) 11/17/24 11:29
BUN 31 mg/dl (9-20) H 11/17/24 11:29
Creatinine 1.0 mg/dL (0.7-1.3) 11/17/24 11:
Calcium 10.0 mg/dl (8.4-10.2) 11/17/24 11:
Total Bilirubin 1.0 mg/dl (0.2-1.3) 11/17/24 06:38
AST 25 U/L (17-59) 11/17/24 06:38
ALT 23 U/L (0-50) 11/17/24 06:38
Alkaline Phosphatase 110 U/L (38-126) 11/17/24 06:38
Diagnostic Image Results:
Chest x-ray:
1. Moderate right pneumothorax, also seen on today's CTA.
2. Lungs are otherwise clear.
Head/neck CTA:
1. No acute intracranial abnormality.
2. No high-grade stenosis or occlusion of the [place] of [place].
3. Bilateral carotid bifurcation calcified atherosclerosis contributing to 80% stenosis of the left carotid bulb and 50% stenosis of the right carotid bulb. Scattered atherosclerosis to a lesser degree elsewhere in the bilateral carotid arterial
systems and vertebral arteries.
4. Moderate right pneumothorax.
Prior GI Procedures:
04/29/2013 EGD: ([facility]) - Hiatus hernia.
- Z-line irregular,. This was biopsied.
- Gastric ulcers.
- Gastritis. This was biopsied.
- Gastritis. This was biopsied.
- Normal first part of the duodenum. Biopsy was
performed.
11/11/2016 colonoscopy: ([facility]) - Non-thrombosed external hemorrhoids found on perianal
exam.
- The examined portion of the ileum was normal.
- One 5 mm polyp in the cecum, removed with a hot snare.
Resected and retrieved. Injected. Clip was placed.
- One 2 mm polyp in the cecum, removed with a jumbo cold
forceps. Resected and retrieved.
- One 2 mm polyp in the ascending colon, removed with a
jumbo cold forceps. Resected and retrieved.
- One 50 mm polyp in the rectum, removed with a hot
snare. Resected and retrieved. Injected. Clips were
placed.
- Diverticulosis in the sigmoid colon and in the
descending colon.
- Internal hemorrhoids.
01/29/2017 sigmoidoscopy ([facility]): - Tight anal sphincter found on digital rectal exam.
- One 2 mm polyp in the rectum, removed with a jumbo
cold forceps. Resected and retrieved.
- A tattoo was seen in the rectum. The tattoo site
appeared normal.
- Internal hemorrhoids.
-Recommend repeat Sig in 2 years for surveillance
Assessment / Plan
-
74-year-old male with past medical history of insulin-dependent diabetes, cardiomyopathy, COPD, gastric ulcers, daily alcohol use, hypertension, hyperlipidemia, tobacco use, CVA (right pontine January 2015), colon polyps, urinary retention who presented
to the emergency room on 11/16/2024 after having falls and dizziness. The patient had a fall at home resulting in injury to his face. He was found to have a right pneumothorax. Minimally displaced 10th rib fracture. A right chest tube was placed.
We are asked to evaluate for coffee ground emesis. I discussed with patient as well as his who is at bedside. He states that for the past week he has have heartburn. He does not take anything for this. He has a remote history of gastric
ulcers in 2012. He takes Plavix on a daily basis. He drinks 2 beers daily. He states that on occasion he drinks a little bit more however denies any use beyond more than a case of beer a week. His agrees with that assessment. He takes 2
Tylenol at bedtime. He denies any aspirin or ibuprofen use. Patient with episode of 350 cc of coffee-ground emesis this morning. History of gastric ulcers, gastritis, irregular Z-line and hiatal hernia on EGD in 2012. Not on any PPI at home.
Also with hyperglycemia and hyperkalemia at present time. Did eat muffin this morning. Given p.o. intake and hyperkalemia cannot perform EGD today.
Impression:
Coffee-ground emesis (approximately 350 cc), history of hiatal hernia, gastric ulcers, irregular Z-line (2012)
Prior history of gastric ulcers (2012)
Recent GERD, past week
History of alcohol use
Falls with right pneumothorax status post right chest tube
Diabetes with elevated blood sugar
Hyperkalemia
Right 10th rib fracture
History of colon polyps, last procedure 2016. Was supposed to have repeat procedure in 2019
History of CVA on Plavix (presently on hold)
Plan:
-Pantoprazole 40 mg IV twice daily
-Antiemetics for any nausea
-Correct potassium as patient cannot have EGD unless within normal limits
-Alcohol withdrawal protocol in place
-Trend CBC, BMP
-Check coags
-Further recommendations to be forthcoming.
-
-
Thank you for consultation and allowing me to participate in the patient's care. Please call the industrial/organizational psychologist GI physician during the after hours with any questions or concerns.
[2024-11-17] MEDS: VENTOLIN NEBULES 10 MG INH (13:06)
[2024-11-17 13:44] LABS: Glucose - Point of Care 304 mg/dl (70-99)
[2024-11-17] MEDS: CALCIUM GLUCONATE 1000 MG IV (13:49)
[2024-11-17] MEDS: LASIX 20 MG IV (13:50)
[2024-11-17] MEDS: NOVOLIN R 0.05 UNITS IV (14:21)
--- NOTE | 2024-11-17 14:44 | CON.PUL ---
Consultation
Consultation Request
Date/Time Consultation Requested: 11/17/2024
Date/Time Consultation Performed: 11/17/2024
Requesting Provider: Dr. Quinones
Performing Provider: Dr. Kash Finch
Reason for Consultation: Pneumothorax
Medical History
-
History of Present Illness:
74-year-old man with past medical history significant for alcohol use disorder, type 2 diabetes, hypertension, GERD, peptic ulcer disease, right pontine stroke, COPD, cardiomyopathy, urinary retention, BPH, presented with dizziness and weakness and
fall over the past several weeks associated with the dizziness as well.
Patient has unsteady gait. Apparently has had syncopal episodes a few times.
[place] prior to admission with abrasion on the cheek. No respiratory symptoms.
Diagnosed with pneumothorax on the right post fall. Chest tube was placed in the emergency room.
I was consulted for evaluation of pneumothorax.
Past Medical History
Past Medical History: Other (see assessment and plan)
Social History
Tobacco: Smoker
Alcohol: Daily
Drug: None
Family History
Family History: Reviewed & Not Pertinent
Allergies / Home Medications
Allergies
Allergy/AdvReac Type Severity Reaction Status Date / Time
No Known Allergies Allergy Verified 11/16/24 13:11
Home Medications
�Medication �Instructions �Recorded �Confirmed �Last Taken �Type
enalapril maleate 20 mg tablet 20 mg PO BID Blood pressure 01/30/15 11/16/24 11/16/24 History
clopidogrel 75 mg tablet 75 mg PO DAILY Blood Clot 05/26/23 11/16/24 11/16/24 History
Prevention/Tx
atorvastatin 80 mg tablet 80 mg PO QPM High Cholesterol 08/19/23 11/16/24 11/15/24 History
dapagliflozin propanediol 10 mg 10 mg PO QPM Diabetes 01/21/24 11/16/24 11/15/24 History
tablet (Farxiga)
ezetimibe 10 mg tablet 10 mg PO DAILY 01/21/24 11/16/24 11/16/24 History
insulin NPH isoph U-100 human 100 16 unit SC QPM Diabetes 01/21/24 11/16/24 11/15/24 History
unit/mL subcutaneous suspension
insulin NPH isoph U-100 human 100 26 unit SC DAILY Diabetes 01/21/24 11/16/24 11/16/24 History
unit/mL subcutaneous suspension
insulin lispro 100 unit/mL 1 - 3 unit SC DAILYPRN PRN diabetes 01/21/24 11/16/24 07/09/24 History
subcutaneous solution (Humalog
U-100 Insulin)
acetaminophen 500 mg tablet 1,000 mg PO DAILYPRN PRN mild pain 07/06/24 11/16/24 11/16/24 History
tamsulosin 0.4 mg capsule 0.4 mg PO DAILY 11/16/24 11/16/24 11/16/24 History
Review of Systems
-
History Source: Patient
All other systems: Negative unless noted
Vitals / Labs / Diagnostic Testing
Vital Signs
Temp Pulse Resp BP Pulse Ox
98.0 F 96 18 141/76 98
11/17/24 11:24 11/17/24 13:50 11/17/24 13:14 11/17/24 13:50 11/17/24 12:12
Lab Data
11/17/24 06:38
Diagnostic Testing:
Physical Exam
-
HEENT: Normocephalic
Cardiovascular: S1/S2
Respiratory: Non-Labored Respirations
GI: Soft and Non Distended
Neurology: Awake and Alert
Skin: Warm
General: Comfortable
Assessment
-
Right pneumothorax post fall/trauma in the setting of underlying possibly emphysema
Status post chest tube placement 11/16/2024
Conditions present prior admission:
Alcohol abuse
Hypertension
Type 2 diabetes
History of rib fracture post falling
COPD
Active smoker
Hypertension
GERD
History of peptic ulcer disease
Urinary retention due to BPH
Assessment and plan:
Right posttraumatic pneumothorax-patient fell. Has been having unsteady gait with multiple falls. 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
Alcohol abuse disorder
Smoker with history of ? COPD. Not on inhalers. Patient states that he does not know whether he has COPD or not. He denies shortness of breath with ambulation.
Denies chronic coughing or phlegm production.
On CT chest from 02/2024: I do not appreciate significant emphysema.
-
Obtain chest x-ray now, if pneumothorax resolved then we will place chest tube to waterseal and repeat chest x-ray tomorrow morning.
Further recommendation will depend on x-ray results as well as whether there is air leak on the chest tube or not.
Continue analgesia
-
Rest of the care per primary team.
-
Patient would benefit from outpatient pulmonary evaluation/follow-up in the future.
Smoking cessation recommended-he smokes about 10 cigarettes/day.
-
Will follow
--- NOTE | 2024-11-17 14:45 | W.CON.NEPH ---
Consultation
-
Date/Time Consultation Requested: 11/17/2024 2 PM
Date/Time Consultation Performed: 11/17/2024 2 PM
Requesting Provider: Dr. Quinones
Performing Provider: Dr. Smith
Reason for Consultation: Hyperkalemia
Medical History
-
Chief Complaint: Weakness
History of Present Illness:
This is a 74-year-old gentleman who has hypertension on a multidrug regimen, diabetes treated with insulin therapy, hyperlipidemia on statin therapy these have been fairly stable. He has BPH with recent TURP about 4 weeks ago by his report. He
says that he does need to catheterize himself at night on occasion. Usually has no issues during the day. He came to the emergency room because of fall falls over the last few weeks. There may have been loss of consciousness on some episodes.
His hospital course was complicated by finding of right pneumothorax requiring chest tube placement. His potassium was elevated at the time of admission and has risen further up to 6.2.
Past Medical History
Diagnosed type II, alcohol use disorder, hypertension, GERD, peptic ulcer disease, right pontine stroke, COPD, BPH, TURP, right heel fracture, tonsillectomy, hyperlipidemia, cardiomyopathy
Social History
Tobacco: Non-Smoker
Alcohol: Daily
Family History
Family History: Not Pertinent
Allergies / Home Medications
Allergy/AdvReac Type Severity Reaction Status Date / Time
No Known Allergies Allergy Verified 11/16/24 13:11
�Medication �Instructions �Recorded �Confirmed �Type
enalapril maleate 20 mg tablet 20 mg PO BID Blood pressure 01/30/15 11/16/24 History
clopidogrel 75 mg tablet 75 mg PO DAILY Blood Clot 05/26/23 11/16/24 History
Prevention/Tx
atorvastatin 80 mg tablet 80 mg PO QPM High Cholesterol 08/19/23 11/16/24 History
dapagliflozin propanediol 10 mg 10 mg PO QPM Diabetes 01/21/24 11/16/24 History
tablet (Farxiga)
ezetimibe 10 mg tablet 10 mg PO DAILY 01/21/24 11/16/24 History
insulin NPH isoph U-100 human 100 16 unit SC QPM Diabetes 01/21/24 11/16/24 History
unit/mL subcutaneous suspension
insulin NPH isoph U-100 human 100 26 unit SC DAILY Diabetes 01/21/24 11/16/24 History
unit/mL subcutaneous suspension
insulin lispro 100 unit/mL 1 - 3 unit SC DAILYPRN PRN diabetes 01/21/24 11/16/24 History
subcutaneous solution (Humalog
U-100 Insulin)
acetaminophen 500 mg tablet 1,000 mg PO DAILYPRN PRN mild pain 07/06/24 11/16/24 History
tamsulosin 0.4 mg capsule 0.4 mg PO DAILY 11/16/24 11/16/24 History
Review of Systems
-
Generalized weakness. Malaise
All other systems: Negative unless noted
Physical Exam
Vital Signs
Vital Signs
Temp Pulse Resp BP Pulse Ox
98.0 F 96 18 141/76 98
11/17/24 11:24 11/17/24 13:50 11/17/24 13:14 11/17/24 13:50 11/17/24 12:12
Lab Results
WBC 10.2 10^3/uL (4.8-10.8) 11/17/24 06:38
RBC 5.28 10^6/uL (4.70-6.10) 11/17/24 06:38
Hgb 15.3 g/dL (13.0-18.0) 11/17/24 06:38
Hct 44.6 % (39.0-52.0) 11/17/24 06:38
Plt Count 274 10^3/uL (130-400) 11/17/24 06:38
Sodium 133 mmol/L (135-145) L 11/17/24 11:29
Chloride 92 mmol/L (98-107) L 11/17/24 11:29
Carbon Dioxide 26 mmol/L (22-30) 11/17/24 11:29
BUN 31 mg/dl (9-20) H 11/17/24 11:29
Creatinine 1.0 mg/dL (0.7-1.3) 11/17/24 11:29
eGFR > 60.00 11/17/24 11:29
Glucose 407 mg/dl (70-99) H 11/17/24 11:29
Calcium 10.0 mg/dl (8.4-10.2) 11/17/24 11:
Albumin 4.0 g/dl (3.5-5.0) 11/17/24 06:38
Laboratory Tests
09/19/24
10:11
Sodium 135
Potassium 3.6
Creatinine 0.8
Physical Exam
Patient is awake alert oriented and in no distress. Mood and affect were pleasant, insight and judgment were good. Pupils are equal round and reactive to light, extraocular movements are intact, sclera were anicteric. Hearing was normal, ears and
nose are intact. Oropharynx was clear. Neck was supple with trachea midline and no thyromegaly. Heart was regular rate and rhythm without rubs. Lower extremities without edema. Lungs were clear to auscultation bilaterally and with normal
excursion. Abdomen was soft, nontender, with normal active bowel sounds, and no hepatosplenomegaly. Skin was without rash and with normal turgor.
Data Reviewed
-
Radiology: Image Personally Visualized and interpreted (11/16/2024 chest x-ray by my reading right pneumothorax)
Medical Tests (Nuc Med, Echo etc): Image Personally Visualized and interpreted (EKG on 11/17/2024 by reading shows sinus rhythm right atrial argument inferior Q)
Labs: Other
Old Records: Reviewed
Assessment/Plan
-
Assessment
Hyperkalemia
Urinary retention
BPH
Hypertension
Weakness/falls
Vomiting
Plan
Treat potassium medically, insulin D50
Serial BMP
No Lokelma given n.p.o. status. May consider Kayexalate enema if necessary
Need to ensure that there is no obstructive issue.
Serial bladder scanning to determine true needs for intermittent catheterization
Check TT KG, ARR
Discussed with and patient
--- NOTE | 2024-11-17 14:46 | PN.DE.MGMTRT ---
Insulin Management
- -
11/17/2024: Diabetes Management Consult
74-year-old male w/PMH: Cardiomyopathy, HTN, HLD, h/o CVA 2014, COPD, GERD w/gastric ulcers, daily alcohol use, tobacco use, colon polyps, urinary retention who presented to the ER on 11/16/2024 after having falls and dizziness, resulting in a
pneumothorax on the right with Chest tube placement in the ED and injury to his face. He was noted for hyperglycemia on admission with a glucose level of 465 and was administered 12 units of NovoLog that resulted into hypoglycemia while NPO.
Pt awake, alert, oriented, sitting up in bed, offers no complaints, able to discuss diabetes care plan. His PCP Dr. Broussard manages his diabetes
States He was taking Farxiga 10mg daily, NPH 26 units daily in AM, 16 units in PM and Humalog SS if blood sugar is >180 [address]. A1C is 9.8%, Cr 1.0, eGFR>60
He has a working glucose meter and checks his blood sugars 4times a day. He states his A1C has been high, recent check was of 9, he is not sure why it's been up. He adheres to a diabetic diet, eats 1 hardboiled egg and a half eng muffin for
breakfast. States his biggest meal is lunch and he usually eats a light dinner of PB and banana sandwich with 2 light beers each night. Discussed currently A1C with pt and emphasized importance of optimal glucose control
He is noted for hyperglycemia today in the setting of hyperkalemia, and his outpatient diabetes regimen has been initiated.
He is currently NPO due to coffee ground emesis with ongoing treatment for Hyperkalemia. Cont Moderate corrective insulin Q6hrs. Hold Farxiga for now.
Closely monitor his glucose trend as potassium levels normalize. Will follow and make insulin adjustments tomorrow if necessary.
Discussed with Nurse
Diabetes History
- -
Type of Diabetes: 2 requiring insulin
Pre-Admission Diabetes Regimen
11/17/24 11/17/24
06:38 11:29
Creatinine 1.0 1.0
Lab Results
Hemoglobin A1c 9.8 % (4.0-5.6) H 11/17/24 06:38
Insulin Pump Settings
IP Diabetes Regimen
11/16/24 11/16/24 11/16/24
21:13 21:30 21:45
Glucose
POC Glucose 37 L* 42 L* 76
11/16/24 11/17/24 11/17/24
23:48 01:45 03:19
Glucose
POC Glucose 336 H 299 H 266 H
11/17/24 11/17/24 11/17/24
06:38 07:50 11:29
Glucose 322 H 407 H
POC Glucose 309 H
11/17/24 11/17/24
11:32 13:44
Glucose
POC Glucose 336 H 304 H
Meal type: Dinner
Amount consumed: 100%
Patient Education
[2024-11-17 15:29] LABS: Glucose - Point of Care 268 mg/dl (70-99)
[2024-11-17 15:40] LABS: Osmolality Urine 533 mOsm/kg (300-900)
[2024-11-17 15:57] LABS: Urine Potassium 38.7 mmol/L (30-90); Urine Sodium 64 mmol/L (30-90)
[2024-11-17 16:30] LABS: Glucose - Point of Care 193 mg/dl (70-99)
--- NOTE | 2024-11-17 17:04 | W.PN.UPDATE ---
Update Note
Progress Note Update
Chest x-ray reviewed-no definitive pneumothorax.
On my prior evaluation without air leak
Will place chest tube to waterseal. Order has been placed.
Chest x-ray in the morning.
--- NOTE | 2024-11-17 17:13 | CM ---
Unable to see patient this afternoon due to medical staff needing to be with him to address acute issues. Will call spouse in the morning.
[2024-11-17 17:52] LABS: Potassium 4.7 mmol/L (3.5-5.1)
[2024-11-17 18:01] LABS: Osmolality Serum 301 mOsm/kg (275-300)
[2024-11-17 18:24] LABS: Glucose - Point of Care 266 mg/dl (70-99)
[2024-11-17] MEDS: LIPITOR 80 MG PO (18:35)
[2024-11-17] MEDS: PLAVIX 75 MG PO (18:35)
[2024-11-17] MEDS: HUMULIN N KWIKPEN 16 UNITS SC (18:37)
[2024-11-17] MEDS: NOVOLOG FLEXPEN-MODERATE RESISTANCE 5 UNITS SC (18:38)
[2024-11-17] MEDS: FARXIGA 10 MG PO (18:41)
[2024-11-17 18:51] LABS: Potassium 4.7 mmol/L (3.5-5.1)
[2024-11-17 19:50] LABS: Glucose - Point of Care 142 mg/dl (70-99)
--- NOTE | 2024-11-17 19:53 | PTCARENOTE ---
Late entry: Pt stood when phone rang, bed alarm went off, this nurse ran into pt's room. Put arm under pt's arm and he began to fall towards the bed. Pt not responding to verbal commands, eyes open, rolling. Sternal rub no response. Pt kept
conscious but not responding. Rapid called. Repositioned. EKG and vitals done. Pt quickly back to baseline. Rapid cancelled. placed pt on bedrest. Since incident, pt with no further episodes and is ringing julianna. bed alarm still in place.
[2024-11-17 20:38] LABS: Hematocrit 45.4 % (39.0-52.0); Hemoglobin 15.3 g/dL (13.0-18.0); Mean Corp Hgb Conc. 33.7 g/dL (33.0-37.0); Mean Corpuscular Hgb 28.7 pg (27.0-31.0); Platelet Count 295 10^3/uL (130-400); Red Blood Cell Count 5.34 10^6/uL (4.70-6.10); Red Cell Dist. Width 15.9 % (11.5-14.5); White Blood Cell Count 10.6 10^3/uL (4.8-10.8)
[2024-11-17 20:50] LABS: Blood Urea Nitrogen 33 mg/dl (9-20); Calcium 10.4 mg/dl (8.4-10.2); Carbon Dioxide 31 mmol/L (22-30); Chloride 98 mmol/L (98-107); Estimated Creatinine Clearance 44 ml/min; Glucose 106 mg/dl (70-99); Potassium 4.9 mmol/L (3.5-5.1); Sodium 138 mmol/L (135-145); eGFR > 60.00
[2024-11-18] VITALS (10 sets, daily range): BP systolic 84–175; BP diastolic 64–98
[2024-11-18 00:27] LABS: Glucose - Point of Care 81 mg/dl (70-99)
[2024-11-18] MEDS: NOVOLOG FLEXPEN-MODERATE RESISTANCE SC ×2 (00:29→06:20)
[2024-11-18 06:04] LABS: Glucose - Point of Care 115 mg/dl (70-99)
[2024-11-18 07:38] LABS: Glucose - Point of Care 138 mg/dl (70-99)
--- NOTE | 2024-11-18 08:34 | PN.DE.MGMTRT ---
Insulin Management
- -
11/18/2024: Diabetes Management follow up
74-year-old male w/PMH: Cardiomyopathy, HTN, HLD, h/o CVA 2014, COPD, GERD w/gastric ulcers, daily alcohol use, tobacco use, colon polyps, urinary retention who presented to the ER on 11/16/2024 after having falls and dizziness, resulting in a
pneumothorax on the right with Chest tube placement in the ED and injury to his face. He was noted for hyperglycemia on admission with a glucose level of 465 and was administered 12 units of NovoLog that resulted into hypoglycemia while NPO.
Pt awake, alert, oriented, sitting up in bed, offers no complaints, able to discuss diabetes care plan. d.
He remains NPO due to coffee ground emesis with ongoing treatment for Hyperkalemia.
Will hold all NPH insulin orders and Farxiga for now and cont Moderate corrective insulin Q6hrs.
Closely monitor his glucose trend and resume NPH when diet has been started.
Will follow and make insulin adjustments if necessary.
Diabetes History
- -
Type of Diabetes: 2 requiring insulin
Pre-Admission Diabetes Regimen
11/17/24 11/17/24 11/17/24
06:38 11:29 20:28
Creatinine 1.0 1.0 1.2
Lab Results
Hemoglobin A1c 9.8 % (4.0-5.6) H 11/17/24 06:38
Insulin Pump Settings
IP Diabetes Regimen
11/17/24 11/17/24 11/17/24
06:38 11:29 11:32
Glucose 322 H 407 H
POC Glucose 336 H
11/17/24 11/17/24 11/17/24
13:44 15:27 16:26
Glucose
POC Glucose 304 H 268 H 193 H
11/17/24 11/17/24 11/17/24
18:23 19:49 20:28
Glucose 106 H
POC Glucose 266 H 142 H
02/28/25 02/28/25 02/28/25
00:27 06:03 07:36
Glucose
POC Glucose 81 115 H 138 H
Meal type: Dinner
Meal type: Lunch
Meal type: Breakfast
Amount consumed: 5%
Patient Education
[2024-11-18 09:18] LABS: Hemoglobin 14.5 g/dL (13.0-18.0); Mean Corp Hgb Conc. 33.7 g/dL (33.0-37.0); Mean Platelet Volume 9.2 fL (7.4-10.4); Platelet Count 276 10^3/uL (130-400); Red Cell Dist. Width 16.3 % (11.5-14.5); White Blood Cell Count 11.8 10^3/uL (4.8-10.8)
[2024-11-18] MEDS: PROTONIX IV 40 MG IV ×2 (09:21→21:16)
[2024-11-18] MEDS: NSS (PRESERVATIVE FREE) 10 ML IV ×2 (09:24→21:15)
[2024-11-18] MEDS: FOLVITE 1 MG PO (09:24)
[2024-11-18] MEDS: FLOMAX 0.4 MG PO (09:24)
[2024-11-18] MEDS: ZETIA 10 MG PO (09:25)
[2024-11-18] MEDS: THIAMINE INJECTION IV ×2 (09:50→21:14)
[2024-11-18] MEDS: HUMULIN N KWIKPEN SC (10:01)
[2024-11-18 10:09] LABS: Blood Urea Nitrogen 37 mg/dl (9-20); Calcium 9.8 mg/dl (8.4-10.2); Carbon Dioxide 27 mmol/L (22-30); Chloride 97 mmol/L (98-107); Estimated Creatinine Clearance 48 ml/min; Glucose 180 mg/dl (70-99); Potassium 4.9 mmol/L (3.5-5.1); Sodium 136 mmol/L (135-145); eGFR > 60.00
[2024-11-18 12:38] LABS: Glucose - Point of Care 255 mg/dl (70-99)
[2024-11-18] MEDS: NOVOLOG FLEXPEN-MODERATE RESISTANCE 5 UNITS SC ×2 (12:43→19:22)
--- NOTE | 2024-11-18 13:58 | W.PN.PUL3 ---
Today's Communication / Plan
-
Rep x-ray after chest tube was repositioned later today.
If there is no pneumothorax placed on waterseal
Chest x-ray in the morning, hopefully can discontinue chest tube in the next 24 hours
Will follow
Assessment
-
74-year-old man with past medical history significant for alcohol use disorder, type 2 diabetes, hypertension, GERD, peptic ulcer disease, right pontine stroke, COPD, cardiomyopathy, urinary retention, BPH, presented with dizziness and weakness and
fall over the past several weeks associated with the dizziness as well.
Patient has unsteady gait. Apparently has had syncopal episodes a few times.
[place] prior to admission with abrasion on the cheek. No respiratory symptoms.
Diagnosed with pneumothorax on the right post fall. Chest tube was placed in the emergency room.
-
Right pneumothorax post fall/trauma in the setting of underlying possibly emphysema
Status post chest tube placement 11/16/2024
Conditions present prior admission:
Alcohol abuse
Hypertension
Type 2 diabetes
History of rib fracture post falling
COPD
Active smoker
Hypertension
GERD
History of peptic ulcer disease
Urinary retention due to BPH
Assessment and plan:
Right posttraumatic pneumothorax-patient fell. Has been having unsteady gait with multiple falls. 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
Alcohol abuse disorder
Smoker with history of ? COPD. Not on inhalers. Patient states that he does not know whether he has COPD or not. He denies shortness of breath with ambulation.
Denies chronic coughing or phlegm production.
On CT chest from 02/2024: I do not appreciate significant emphysema.
-
Chest tube without air leak.
Chest x-ray 11/17/2024: On suction in the afternoon showed no recurrent pneumothorax
Chest tube placed to waterseal 11/17/2024 in the afternoon until 11/18/2024.
Chest x-ray this morning showed recurrent pneumothorax-looks like chest tube was retracted with the proximal end hole located outside the pleural cavity. Likely reason for recurrent pneumothorax.
-
Patient asymptomatic, on room air. No subcutaneous air, he feels comfortable 11/18/2024 2:10 PM.
-
Chest tube will be repositioned later today by interventional radiology.
I do not appreciate any airleak on chest tube 11/18/2024 2:10 PM. Not with coughing or deep inspiration.
-
If there is no airleak after chest tube repositioned placed on waterseal and repeat chest x-ray in the morning.
If there is no pneumothorax tomorrow and without air leak can clamp and consider discontinuation of chest tube in the next 24 hours.
-
Rest of the care per primary team.
-
Patient would benefit from outpatient pulmonary evaluation/follow-up in the future.
Smoking cessation recommended-he smokes about 10 cigarettes/day.
-
Will follow
Subjective Data
-
Date of Service:
Date of Service: November 18, 2024
Chief Complaint: Pulmonary Follow Up (Pneumothorax-trauma)
Subjective:
Patient denies any complaints.
Review of Systems
Cardiopulmonary: Dyspnea (n) and Dyspnea on Exertion (n)
GI: Abdominal Pain (n)
Objective Data
Data Reviewed
Vital Signs / I&O / Oxygen:
Vital Signs
Temp Pulse Resp BP Pulse Ox
98.5 F 84 18 146/80 94
11/18/24 11:43 11/18/24 11:43 11/18/24 11:43 11/18/24 11:43 11/18/24 11:43
Intake and Output
11/17/24 11/18/24 11/19/24
06:59 06:59 06:59
Intake Total 1300 / 1300 240 / 240
Output Total 910 / 910 1283 / 1283
Balance 390 / 390 -1043 / -1043
SaO2 94
Physical Exam
General: Comfortable
HEENT: Normocephalic
Cardiovascular: S1-S2
Respiratory: Non-Labored Respirations
GI: Non Distended
Neurology: Awake, Alert and No Motor Deficits
Skin: Warm
Labs/Micro/Reports
Lab Data
11/18/24 08:21
11/18/24 08:21
[2024-11-18] MEDS: HUMULIN N KWIKPEN 10 UNITS SC (14:43)
[2024-11-18 14:52] LABS: Glucose - Point of Care 209 mg/dl (70-99)
--- NOTE | 2024-11-18 15:09 | W.PN.NEPH.PH ---
Today's Communication / Plan
-
Sign off
Can slowly add back enalapril if potassium levels remain low at discharge
Assessment/Plan
-
Assessment
Hyperkalemia
Urinary retention
BPH
Hypertension
Weakness/falls
Vomiting
Plan
Treat potassium medically, insulin D50
K corrected to 4.9, mat held
Creatinine stable at 1.1
Need to ensure that there is no obstructive issue.
Serial bladder scanning to determine true needs for intermittent catheterization
sign off
-
-
Date of Service: November 18, 2024
CC / HPI / ROS
-
Chief Complaint:
Hyperkalemia
History of Present Illness:
Potassium corrected to 4.9
Hemodynamically stable off MAT
Review of Systems:
Nonoliguric
No fevers
Labs
-
Labs:
WBC 11.8 10^3/uL (4.8-10.8) H 11/18/24 08:21
RBC 5.00 10^6/uL (4.70-6.10) 11/18/24 08:21
Hgb 14.5 g/dL (13.0-18.0) 11/18/24 08:21
Hct 43.0 % (39.0-52.0) 11/18/24 08:21
Plt Count 276 10^3/uL (130-400) 11/18/24 08:21
Sodium 136 mmol/L (135-145) 11/18/24 08:21
Potassium 4.9 mmol/L (3.5-5.1) 11/18/24 08:21
Chloride 97 mmol/L (98-107) L 11/18/24 08:21
Carbon Dioxide 27 mmol/L (22-30) 11/18/24 08:21
BUN 37 mg/dl (9-20) H 11/18/24 08:21
Creatinine 1.1 mg/dL (0.7-1.3) 11/18/24 08:21
eGFR > 60.00 11/18/24 08:21
Glucose 180 mg/dl (70-99) H 11/18/24 08:21
Calcium 9.8 mg/dl (8.4-10.2) 11/18/24 08:21
Albumin 4.0 g/dl (3.5-5.0) 11/17/24 06:38
Physical Exam
-
Vital Signs:
Vital Signs
Temp Pulse Resp BP Pulse Ox
98.5 F 84 18 146/80 94
11/18/24 11:43 11/18/24 11:43 11/18/24 11:43 11/18/24 11:43 11/18/24 11:43
Respiratory:: Bilateral: CTA
Lung Excursion:: Normal
Abdomen:: Nontender and Soft
Extremity Edema:: None: Bilateral:
Guzman Catheter: No
Other Findings::
Right-sided chest tube
--- NOTE | 2024-11-18 17:00 | CM ---
Met with patient to obtain information for assessment. Patient stated that he lives in a single two story home with one steps. He is independent with ADLs, personal care, dressing and bathing. 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 He has had VN in the past through . He has not been to a SNF.
Plan: Case management will continue to follow and assist with discharge planning. Home when stable.
[2024-11-18 18:38] LABS: Glucose - Point of Care 290 mg/dl (70-99)
[2024-11-18] MEDS: PLAVIX 75 MG PO (18:42)
[2024-11-18] MEDS: LIPITOR 80 MG PO (18:42)
--- NOTE | 2024-11-18 18:43 | W.PN.HOSP.TC ---
Today's Communication/Plan
-
See plan
Assessment / Plan
Assessment / Plan
Physical Exam
General: Well Developed, Well Nourished and No Apparent Distress
HEENT: Normocephalic, Moist mucous membranes and Atraumatic
Respiratory: Clear to Auscultation Bilaterally
Cardiac: S1/S2 and Regular Rhythm
GI: Soft, Non Tender, Non Distended and Normal Bowel Sounds
Musculoskeletal: No Cyanosis and No Edema
Skin: Warm. Dry.
Neuro: Alert. Awake. Nonfocal/grossly intact bilaterally.
Assessment/Plan
74-year-old male past medical history of alcohol use disorder, type 2 diabetes mellitus, hypertension, GERD, peptic ulcer disease, right pontine stroke, COPD, cardiomyopathy, urinary retention likely from enlarged prostate and hypercholesteremia,
presented with dizziness and weakness and falls over the several weeks (prior to presentation) associated with dizziness. When he walks he feels unsteady topples over to 1 side. He may have passed out a few times. He fell the day before
presentation, resulting in an abrasion to his cheek which prompted him to come in to the ER. No chest pain or shortness of breath or cough. No fevers or chills. He drinks 2 beers every day and sometimes more on the weekends. He used to drink much
heavier when he was younger. No residual symptoms from his prior stroke. He has been compliant with his insulin. He smokes 10 to 12 cigarettes/day.
# Fall resulting in moderate right pneumothorax
-Chest tube placed
-Pulmonary consulted: chest tube to be repositioned by interventional radiology; if there is no airleak after chest tube repositioned, place on waterseal and repeat chest x-ray in the morning.
-If there is no pneumothorax tomorrow and no air leak, can clamp and consider discontinuation of chest tube in the next 24 hours.
# Ongoing dizziness/weakness and falls/unsteadiness
# Recent Episodes of Possible Syncope
-Alcohol level negative
-Bed Rest for now, as concern for patient developing orthostatic symptoms when sitting/standing
-TSH normal at 1.54, and Vitamin B12 normal at 575
-Likely related to alcohol use
-Follow-up MRI Brain report
-Neurology consulted as per vascular surgery's request to consult neurology; neurology communicated via [place] Text that this can be managed as an
outpatient, and that patient denies weakness or dizziness, just complaining of falls. Exam with a little bit of Parkinson�s; the right parietooccipital infarction
on head ct is in the MCA territory but it looks old so therefore not an inpatient problem.
-Neurology mentioned that patient's falls, handwriting changes, and possibly the dizziness is which is mild, due to Parkinson's disease, discussed starting Sinemet, they want to think about this
-Orthostatic vital signs were negative
-CT Head showed small area of infarct right parieto-occipital junction, MCA territory, could be the related to the Right carotid stenosis. Stable chronic lacunar infarcts in bilateral basal ganglia, left thalamus, right cerebellum.
-CTA head/neck showed Left Carotid Bulb 80% stenosis, right carotid bulb 50% stenosis
-Brain MRI findings to be followed up
-Patient should stay on Plavix 75 and Lipitor 80, unless the Plavix needs to be held for GI bleeding
-Echo without any change compared to echo about 1 year ago
# Left carotid artery stenosis
-CTA showed bilateral carotid bifurcation calcified atherosclerosis contribute to 80% stenosis left carotid bulb and 50% of the right carotid bulb
-Vascular surgery consulted -- vascular surgery requested hospitalist consult neurology therefore neurology consult placed
-May benefit from outpatient carotid interventions bilaterally to lower patient's stroke risk
-Carotid disease not causing patient's dizziness, as per neurology
#Hyperkalemia
-His potassium is also 5.8 --> 6.2 in a matter of hours
-I ordered Ross gluconate, Insulin, Dextrose, Lasix, and Albuterol with significant improvement in potassium levels
-Held patient's Enalapril -- can slowly add back enalapril if potassium levels remain low at discharge
-Given rapid rise (within hours) in potassium with potassium going into the 6+ range, consulted nephrology
-Repeat BMP/potassium ordered -- improvement in potassium
#Upper GI Bleed/Copious Coffee Ground Emesis on 11/17/24
-Protonix 40 mg IV BID started
-PRN IV antiemetics
-GI consulted for evaluation of EGD
-Suspected component of esophagitis causing patient's symptoms versus gastritis/duodenitis versus less likely other etiologies
-Per GI, deferring any plans for an EGD given pneumothorax.
-AVOID NSAIDs
# Type 2 Diabetes Mellitus
# Hyperglycemia
-Continue Insulin and accuchecks
-Diabetes COURT MANAGER consulted, appreciate evaluation and recommendations
# Pseudohyponatremia secondary to hyperglycemia
-Continue to monitor
# Minimally displaced 10th rib fracture
-From prior chest x-ray on 10/31
COPD
Active smoker
-Nicotine patch
Cardiomyopathy
-Continue dapagliflozin
Right pontine CVA
-Continue Plavix, statin
Alcohol use disorder
-Thiamine and folate
-Alcohol withdrawal protocol
Essential hypertension
-Holding enalapril
GERD
Peptic ulcer disease
Urinary retention secondary to BPH
-Continue tamsulosin
-Bladder scans protocol/monitor for urinary retention
Hypercholesterolemia
-Continue statin, Zetia
Code Status: Full code
DVT Prophylaxis: SCDs. No chemical DVT prophylaxis given coffee ground emesis.
Diabetic diet
Anticipated Discharge: 24 - 48 hours
Subjective/Interval History
-
Date of Service: November 18, 2024
Patient was seen and examined. He denied any symptoms or complaints.
Objective Data
-
Labs:
Laboratory Results
11/18/24
08:21
WBC 11.8 H
Hgb 14.5
Hct 43.0
Plt Count 276
Sodium 136
Potassium 4.9
Chloride 97 L
Carbon Dioxide 27
BUN 37 H
Creatinine 1.1
Glucose 180 H
Calcium 9.8
Vital Signs:
Vital Signs
Temp Pulse Resp BP Pulse Ox
98.4 F 90 17 147/84 93
11/18/24 18:35 11/18/24 18:35 11/18/24 18:35 11/18/24 18:35 11/18/24 18:35
I&O
11/17/24 11/18/24 11/19/24
06:59 06:59 06:59
Intake Total 1300 / 1300 240 / 240 480 / 480
Output Total 910 / 910 1283 / 1283
Balance 390 / 390 -1043 / -1043 480 / 480
[2024-11-18] MEDS: HUMULIN N KWIKPEN 16 UNITS SC (18:48)
[2024-11-18 21:37] LABS: Glucose - Point of Care 166 mg/dl (70-99)
[2024-11-19 02:56] VITALS: BP 171/87
[2024-11-19] MEDS: APRESOLINE 5 MG IV (02:59)
[2024-11-19 07:00] VITALS: BP 159/85
--- NOTE | 2024-11-19 07:21 | W.PN.HOSP.TC ---
Today's Communication/Plan
-
See plan
Assessment / Plan
Assessment / Plan
Physical Exam
General: Well Developed, Well Nourished and No Apparent Distress
HEENT: Normocephalic, Moist mucous membranes and Atraumatic
Respiratory: Clear to Auscultation Bilaterally
Cardiac: S1/S2 and Regular Rhythm
GI: Soft, Non Tender, Non Distended and Normal Bowel Sounds
Musculoskeletal: No Cyanosis and No Edema
Skin: Warm. Dry.
Neuro: Alert. Awake. Nonfocal/grossly intact bilaterally.
Assessment/Plan
74-year-old male past medical history of alcohol use disorder, type 2 diabetes mellitus, hypertension, GERD, peptic ulcer disease, right pontine stroke, COPD, cardiomyopathy, urinary retention likely from enlarged prostate and hypercholesteremia,
presented with dizziness and weakness and falls over the several weeks (prior to presentation) associated with dizziness. When he walks he feels unsteady topples over to 1 side. He may have passed out a few times. He fell the day before
presentation, resulting in an abrasion to his cheek which prompted him to come in to the ER. No chest pain or shortness of breath or cough. No fevers or chills. He drinks 2 beers every day and sometimes more on the weekends. He used to drink much
heavier when he was younger. No residual symptoms from his prior stroke. He has been compliant with his insulin. He smokes 10 to 12 cigarettes/day.
# Fall resulting in moderate right pneumothorax
-Chest tube placed
-Pulmonary consulted: chest tube to be repositioned by interventional radiology; if there is no airleak after chest tube repositioned, place on waterseal and repeat chest x-ray in the morning.
-Appreciate pulmonary assistance with chest tube management
# Dizziness/weakness and falls/unsteadiness
# Recent Episodes of Possible Syncope
-Alcohol level negative
-TSH normal at 1.54, and Vitamin B12 normal at 575
-Likely related to alcohol use
-Follow-up MRI Brain report
-Neurology consulted as per vascular surgery's request to consult neurology; neurology communicated via [place] Text that this can be managed as an
outpatient, and that patient denies weakness or dizziness, just complaining of falls. Exam with a little bit of Parkinson�s; the right parietooccipital infarction
on head ct is in the MCA territory but it looks old so therefore not an inpatient problem.
-Neurology mentioned that patient's falls, handwriting changes, and possibly the dizziness is which is mild, due to Parkinson's disease, discussed starting Sinemet, they want to think about this
-Check orthostatic vital signs
-CT Head showed small area of infarct right parieto-occipital junction, MCA territory, could be the related to the Right carotid stenosis. Stable chronic lacunar infarcts in bilateral basal ganglia, left thalamus, right cerebellum.
-CTA head/neck showed Left Carotid Bulb 80% stenosis, right carotid bulb 50% stenosis
-Brain MRI findings to be followed up
-Patient should stay on Plavix 75 and Lipitor 80, unless the Plavix needs to be held for GI bleeding
-Echo without any change compared to echo about 1 year ago
# Left carotid artery stenosis
-CTA showed bilateral carotid bifurcation calcified atherosclerosis contribute to 80% stenosis left carotid bulb and 50% of the right carotid bulb
-Vascular surgery consulted -- vascular surgery requested hospitalist consult neurology therefore neurology consult placed
-May benefit from outpatient carotid interventions bilaterally to lower patient's stroke risk
-Carotid disease not causing patient's dizziness, as per neurology
#Hyperkalemia - RESOLVED
-His potassium is also 5.8 --> 6.2 in a matter of hours
-I ordered Ross gluconate, Insulin, Dextrose, Lasix, and Albuterol with significant improvement in potassium levels
-Held patient's Enalapril -- can slowly add back enalapril if potassium levels remain low at discharge
-Given rapid rise (within hours) in potassium with potassium going into the 6+ range, consulted nephrology
-Repeat BMP/potassium ordered -- improvement in potassium
#Upper GI Bleed/Copious Coffee Ground Emesis on 11/17/24
-Protonix 40 mg IV BID started
-PRN IV antiemetics
-GI consulted for evaluation of EGD
-Suspected component of esophagitis causing patient's symptoms versus gastritis/duodenitis versus less likely other etiologies
-Per GI, deferring any plans for an EGD given pneumothorax.
-AVOID NSAIDs
# Type 2 Diabetes Mellitus
# Hyperglycemia
-Continue Insulin and accuchecks
-Long-acting Insulin increased to 28 units and Farxiga resumed
-Diabetes OUTBOUND SALES PROFESSIONAL consulted, appreciate evaluation and recommendations
# Pseudohyponatremia secondary to hyperglycemia
-Continue to monitor
# Minimally displaced 10th rib fracture
-From prior chest x-ray on 10/31
COPD
Active smoker
-Nicotine patch
Cardiomyopathy
-Continue dapagliflozin
Right pontine CVA
-Continue Plavix, statin
Alcohol use disorder
-Thiamine and folate
-Alcohol withdrawal protocol
Essential hypertension
-Holding enalapril
GERD
Peptic ulcer disease
Urinary retention secondary to BPH
-Continue tamsulosin
-Bladder scans protocol/monitor for urinary retention
Hypercholesterolemia
-Continue statin, Zetia
Code Status: Full code
DVT Prophylaxis: SCDs. No chemical DVT prophylaxis given coffee ground emesis.
Diabetic diet
Anticipated Discharge: 24 - 48 hours
Subjective/Interval History
-
Date of Service: November 19, 2024
Patient was seen and examined. He denied chest pain, shortness of breath or dizziness.
Objective Data
-
Vital Signs:
Vital Signs
Temp Pulse Resp BP Pulse Ox
98.9 F 74 18 171/87 95
11/19/24 02:56 11/19/24 02:59 11/19/24 02:56 11/19/24 02:59 11/19/24 02:56
I&O
11/18/24 11/19/2411/20/25
06:59 06:59 06:59
Intake Total 240 / 240 960 / 960
Output Total 1283 / 1283 710 / 710
Balance -1043 / -1043 250 / 250
[2024-11-19 07:49] LABS: Glucose - Point of Care 157 mg/dl (70-99)
[2024-11-19] MEDS: THIAMINE INJECTION 200 MG IV (08:42)
[2024-11-19] MEDS: NSS (PRESERVATIVE FREE) 10 ML IV ×2 (08:42→20:51)
[2024-11-19] MEDS: FLOMAX 0.4 MG PO (08:42)
[2024-11-19] MEDS: PROTONIX IV 40 MG IV ×2 (08:42→20:51)
[2024-11-19] MEDS: FOLVITE 1 MG PO (08:43)
[2024-11-19] MEDS: NOVOLOG FLEXPEN-MODERATE RESISTANCE 1 UNITS SC (09:43)
[2024-11-19] MEDS: HUMULIN N KWIKPEN 26 UNITS SC (09:44)
[2024-11-19] MEDS: ZETIA 10 MG PO (09:47)
--- NOTE | 2024-11-19 11:52 | W.PN.UPDATE ---
Update Note
Progress Note Update
AM CXR with no ptx. Did have air leak post exchange yesterday. Would maintain to suction today, if no ptx and no air leak in AM then repeat clamping trial.
[2024-11-19 12:00] VITALS: BP 122/84
[2024-11-19 12:15] LABS: Glucose - Point of Care 310 mg/dl (70-99)
[2024-11-19 13:38] LABS: Glucose - Point of Care 302 mg/dl (70-99)
[2024-11-19] MEDS: NOVOLOG FLEXPEN-MODERATE RESISTANCE 7 UNITS SC (13:40)
[2024-11-19 14:28] LABS: Hematocrit 41.8 % (39.0-52.0); Hemoglobin 14.4 g/dL (13.0-18.0); Mean Corp Hgb Conc. 34.4 g/dL (33.0-37.0); Mean Corpuscular Hgb 29.3 pg (27.0-31.0); Mean Corpuscular Volume 85.1 fL (80.0-94.0); Platelet Count 231 10^3/uL (130-400); Red Blood Cell Count 4.91 10^6/uL (4.70-6.10); Red Cell Dist. Width 16.1 % (11.5-14.5); White Blood Cell Count 9.4 10^3/uL (4.8-10.8)
[2024-11-19 14:45] LABS: Blood Urea Nitrogen 45 mg/dl (9-20); Calcium 9.3 mg/dl (8.4-10.2); Carbon Dioxide 26 mmol/L (22-30); Chloride 94 mmol/L (98-107); Estimated Creatinine Clearance 44 ml/min; Glucose 366 mg/dl (70-99); Potassium 4.6 mmol/L (3.5-5.1); Sodium 130 mmol/L (135-145); eGFR > 60.00
[2024-11-19 15:00] VITALS: BP 142/83
[2024-11-19 15:04] LABS: Glucose - Point of Care 331 mg/dl (70-99)
--- NOTE | 2024-11-19 16:58 | W.PN.PUL3 ---
Today's Communication / Plan
-
CXR today shows resolved right-sided pneumothorax
Chest tube placed onto waterseal today
CXR tomorrow and if still no PTX then I will clamp chest tube tomorrow and possibly remove afterwards
Will follow
Outpatient follow-up recommended
Assessment
-
74-year-old man with past medical history significant for alcohol use disorder, type 2 diabetes, hypertension, GERD, peptic ulcer disease, right pontine stroke, COPD, cardiomyopathy, urinary retention, BPH, presented with dizziness and weakness and
fall over the past several weeks associated with the dizziness as well.
Patient has unsteady gait. Apparently has had syncopal episodes a few times.
[place] prior to admission with abrasion on the cheek. No respiratory symptoms.
Diagnosed with pneumothorax on the right post fall. Chest tube was placed in the emergency room.
-
Right pneumothorax post fall/trauma in the setting of underlying possibly emphysema
Status post chest tube placement 11/16/2024
Conditions present prior admission:
Alcohol abuse
Hypertension
Type 2 diabetes
History of rib fracture post falling
COPD with minimal emphysema
Active smoker
Hypertension
GERD
History of peptic ulcer disease
Urinary retention due to BPH
Assessment and plan:
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
Alcohol abuse disorder
Smoker with history of COPD. Not on inhalers as he has refused. Patient states that he does not know whether he has COPD or not. He denies shortness of breath with ambulation.
Denies chronic coughing or phlegm production.
-
Chest tube without air leak.
Chest x-ray 11/17/2024: On suction in the afternoon showed no recurrent pneumothorax
Chest tube placed to waterseal 11/17/2024 in the afternoon until 11/18/2024.
Chest x-ray on AM of 11/18 showed recurrent pneumothorax-looks like chest tube was retracted with the proximal end hole located outside the pleural cavity. Likely reason for recurrent pneumothorax.
Chest tube was exchanged by IR on 11/18/2024 and upsized from a 14 Fr to a 16 Fr chest tube, and repeat CXR today shows no pneumothorax
-
Patient asymptomatic, on room air. No subcutaneous air, he feels comfortable
-
Chest tube placed to waterseal today (11/19/2024) --> check CXR tomorrow morning and if pneumothorax still resolved then I will clamp chest tube tomorrow and possibly remove chest tube later in the afternoon
-
Rest of the care per primary team. Follow-up brain MRI interpretation
-
Patient would benefit from outpatient pulmonary evaluation/follow-up in the future. Last followed with Dr. Lynch in the office - last visit 06/28/2024
Smoking cessation recommended-he smokes about 10 cigarettes/day.
-
Will follow
Total time spent today was 37 minutes for this encounter. Time includes reviewing laboratory test/imaging results, reviewing pertinent medical records, obtaining and reviewing medical history, performing an appropriate exam, ordering medications,
tests and procedures. Time also includes documentation of this encounter, coordinating patient care and communicating with other healthcare professionals. Total time does not include separately billed tests performed on this date of service.
Subjective Data
-
Date of Service:
Date of Service: November 19, 2024
Chief Complaint: Pulmonary Follow Up (Pneumothorax-trauma)
Subjective:
Patient seen earlier today (late note entry). Right-sided chest tube in place, currently on -20 cmH2O suction. No air leak is seen. He denies chest pain, ENRIQUEZ, nausea, fevers or chills. He is currently on room air breathing comfortably.
Review of Systems
General: Other (Negative unless mentioned above)
Objective Data
Data Reviewed
Vital Signs / I&O / Oxygen:
Vital Signs
Temp Pulse Resp BP Pulse Ox
97.7 F 74 16 159/85 97
11/19/24 07:00 11/19/24 07:00 11/19/24 07:00 11/19/24 07:00 11/19/24 07:00
Intake and Output
11/18/24 11/19/24 11/20/24
06:59 06:59 06:59
Intake Total 240 / 240 960 / 960
Output Total 1283 / 1283 710 / 710
Balance -1043 / -1043 250 / 250
SaO2 97
Physical Exam
General: Respiratory Distress (negative), Comfortable, Chills (negative) and Sweats (negative)
HEENT: Normocephalic and Anicteric
Cardiovascular: S1-S2, Rub (negative) and Peripheral Edema (negative)
Respiratory: Wheeze (negative), Crackles (negative), Rhonchi (negative), Non-Labored Respirations, Stridor (negative), Chest Tube (Right-sided chest tube in place on -20 cmH2O, no airleak seen) and Other (Diminished breath sounds bilaterally)
GI: Soft, Non Distended, Non Tender and Normal Bowel Sounds
Neurology: Awake, Alert and Tremors (negative)
Skin: Warm, Dry, Cyanosis (negative) and Jaundice (negative)
Labs/Micro/Reports
Lab Data
11/18/24 08:21
11/18/24 08:21
[2024-11-19 17:02] LABS: Glucose - Point of Care 147 mg/dl (70-99)
[2024-11-19] MEDS: LIPITOR 80 MG PO (17:07)
[2024-11-19] MEDS: NOVOLOG FLEXPEN-MODERATE RESISTANCE SC (17:07)
[2024-11-19] MEDS: PLAVIX 75 MG PO (17:08)
[2024-11-19] MEDS: FARXIGA 10 MG PO (17:08)
[2024-11-19] MEDS: HUMULIN N KWIKPEN 16 UNITS SC (18:16)
[2024-11-19 19:00] VITALS: BP 129/72
[2024-11-19] MEDS: VITAMIN B1 100 MG PO (20:51)
[2024-11-19 21:53] LABS: Glucose - Point of Care 53 mg/dl (70-99)
[2024-11-19 22:18] LABS: Glucose - Point of Care 46 mg/dl (70-99)
[2024-11-19 22:37] LABS: Glucose - Point of Care 45 mg/dl (70-99)
[2024-11-19] MEDS: DEXTROSE 50% SYRINGE 12.5 GRAMS IV (22:46)
[2024-11-19 23:00] VITALS: BP 109/66
[2024-11-19 23:10] LABS: Glucose - Point of Care 109 mg/dl (70-99)
[2024-11-20] VITALS (8 sets, daily range): BP systolic 109–191; BP diastolic 60–97
[2024-11-20 01:20] LABS: Glucose - Point of Care 48 mg/dl (70-99)
[2024-11-20 01:39] LABS: Glucose - Point of Care 60 mg/dl (70-99)
[2024-11-20 01:57] LABS: Glucose - Point of Care 85 mg/dl (70-99)
[2024-11-20] MEDS: APRESOLINE 5 MG IV (03:58)
[2024-11-20 04:02] LABS: Glucose - Point of Care 85 mg/dl (70-99)
[2024-11-20 06:12] LABS: Glucose - Point of Care 86 mg/dl (70-99)
--- NOTE | 2024-11-20 07:14 | W.PN.HOSP.TC ---
Addendum entered and electronically signed by Reuben Quinones MD 11/20/24 14:44:
Only Low-Dose Sliding Scale Insulin, and only with meals, ordered for now.
Original Note:
Today's Communication/Plan
-
CXR showed recurrent pneumothorax, this is while patient on waterseal; place chest tube back to suction
See plan
Assessment / Plan
Assessment / Plan
Physical Exam
General: Well Developed, Well Nourished and No Apparent Distress
HEENT: Normocephalic, Moist mucous membranes
Respiratory: Decreased breath sounds bilaterally
Cardiac: S1/S2 and Regular Rhythm
GI: Soft, Non Tender, Non Distended and Normal Bowel Sounds
Musculoskeletal: No Cyanosis and No Edema
Skin: Warm. Dry.
Neuro: Alert. Awake. Nonfocal/grossly intact bilaterally.
Assessment/Plan
74-year-old male past medical history of alcohol use disorder, type 2 diabetes mellitus, hypertension, GERD, peptic ulcer disease, right pontine stroke, COPD, cardiomyopathy, urinary retention likely from enlarged prostate and hypercholesteremia,
presented with dizziness and weakness and falls over the several weeks (prior to presentation) associated with dizziness. When he walks he feels unsteady topples over to 1 side. He may have passed out a few times. He fell the day before
presentation, resulting in an abrasion to his cheek which prompted him to come in to the ER. No chest pain or shortness of breath or cough. No fevers or chills. He drinks 2 beers every day and sometimes more on the weekends. He used to drink much
heavier when he was younger. No residual symptoms from his prior stroke. He has been compliant with his insulin. He smokes 10 to 12 cigarettes/day.
# Fall resulting in moderate right pneumothorax
-Chest tube placed
-As of today: right-sided pneumothorax has returned while patient is on Waterseal -- so resume suction as per pulmonary
-Pulmonary consulted
-Appreciate pulmonary assistance with chest tube management
# Dizziness/weakness and falls/unsteadiness
# Recent Episodes of Possible Syncope
-Suspected multifactorial with possible hypoglycemia (has episodes of low blood sugars at home), possible hypotension at home, alcohol use, possible Parkinson's Disease as per
neurology
-Alcohol level negative
-TSH normal at 1.54, and Vitamin B12 normal at 575
-Neurology consulted as per vascular surgery's request to consult neurology; neurology communicated via [place] Text that this can be managed as an
outpatient, and that patient denies weakness or dizziness, just complaining of falls. Exam with a little bit of Parkinson�s; the right parietooccipital infarction
on head ct is in the MCA territory but it looks old so therefore not an inpatient problem.
-Neurology mentioned that patient's falls, handwriting changes, and possibly the dizziness is which is mild, due to Parkinson's disease, discussed starting Sinemet, they want to think about this
-CT Head showed small area of infarct right parieto-occipital junction, MCA territory, could be the related to the Right carotid stenosis. Stable chronic lacunar infarcts in bilateral basal ganglia, left thalamus, right cerebellum.
-CTA head/neck showed Left Carotid Bulb 80% stenosis, right carotid bulb 50% stenosis
-Brain MRI is not needed as per my communication with neurology
-Patient should stay on Plavix 75 and Lipitor 80, unless the Plavix needs to be held for GI bleeding
-Echo without any change compared to echo about 1 year ago
-Check orthostatic vital signs when able
# Left carotid artery stenosis -- asymptomatic
-CTA showed bilateral carotid bifurcation calcified atherosclerosis contribute to 80% stenosis left carotid bulb and 50% of the right carotid bulb
-Vascular ultrasound results noted
-Vascular surgery consulted -- vascular surgery requested hospitalist consult neurology, therefore neurology consult placed
-Can benefit from outpatient carotid interventions bilaterally to lower patient's stroke risk
-Carotid disease not causing patient's dizziness, as per neurology
#Hyperkalemia - RESOLVED
-Patient's potassium increased from 5.8 --> 6.2 in a matter of hours on 11/17/24
-I ordered Ross gluconate, Insulin, Dextrose, Lasix, and Albuterol with significant improvement in potassium levels
-Held patient's Enalapril -- can consider slowly adding back enalapril if potassium levels remain low at discharge, per nephrology
-Given rapid rise (within hours) in potassium with potassium going into the 6+ range, consulted nephrology
-Repeat BMP/potassium ordered -- now with stable potassium levels
#Upper GI Bleed/Copious Coffee Ground Emesis on 11/17/24
-Protonix 40 mg IV BID started
-PRN IV antiemetics
-GI consulted for evaluation of EGD
-Suspected component of esophagitis causing patient's symptoms versus gastritis/duodenitis versus less likely other etiologies
-Per GI, deferring any plans for an EGD given pneumothorax
-Consider EGD as an outpatient along with a colonoscopy at that time as he is overdue in terms of surveillance
-AVOID NSAIDs, limit alcohol intake
# Type 2 Diabetes Mellitus
# Hyperglycemia
-Patient had significant but asymptomatic hypoglycemia on 11/19 evening to 11/20 morning (accucheck readings were down to 40s)
-On 11/20 morning, patient reported that he did not have any concerning symptoms overnight
-Hold evening Insulin and daytime Insulin (including Sliding Scale Insulin ) for now and monitor blood sugar readings
-Plan to gradually resume Insulin. May have to accept higher glucose readings into the 300s given severe hypoglycemia.
-Continue Diabetic Diet.
-Diabetes MEATCUTTER consulted, appreciate evaluation and recommendations
# Pseudohyponatremia secondary to hyperglycemia
-Continue to monitor
# Minimally displaced 10th rib fracture
-From prior chest x-ray on 10/31
#COPD
#Active smoker
-Nicotine patch
#Cardiomyopathy
-Continue dapagliflozin
#Right pontine CVA
-Continue Plavix, statin
#Alcohol use disorder
-Thiamine and folate
-Alcohol withdrawal protocol
#Essential hypertension
-Holding enalapril
#GERD
#Peptic ulcer disease
#Urinary retention secondary to BPH
-Continue tamsulosin
-Bladder scans protocol/monitor for urinary retention
#Hypercholesterolemia
-Continue statin, Zetia
Code Status: Full code
DVT Prophylaxis: SCDs. No chemical DVT prophylaxis given coffee ground emesis earlier this admission.
Diet: Diabetic diet
Anticipated Discharge: > 48 hours
Subjective/Interval History
-
Date of Service: November 20, 2024
Patient was seen and examined. He denied any dizziness, palpitations or any other complaints.
Objective Data
-
Labs:
Laboratory Results
11/20/24
06:00
WBC Pending
Hgb Pending
Hct Pending
Plt Count Pending
Sodium Pending
Potassium Pending
Chloride Pending
Carbon Dioxide Pending
BUN Pending
Creatinine Pending
Glucose Pending
Calcium Pending
Vital Signs:
Vital Signs
Temp Pulse Resp BP Pulse Ox
97.9 F 76 20 127/67 98
11/20/24 03:00 11/20/24 06:15 11/20/24 03:00 11/20/24 06:15 11/20/24 03:00
I&O
11/19/24 11/20/24 11/21/24
06:59 06:59 06:59
Intake Total 960 / 960 1440 / 1440
Output Total 710 / 710 604 / 604
Balance 250 / 250 836 / 836
[2024-11-20 08:07] LABS: Hematocrit 42.7 % (39.0-52.0); Hemoglobin 14.6 g/dL (13.0-18.0); Mean Corp Hgb Conc. 34.2 g/dL (33.0-37.0); Mean Corpuscular Hgb 28.9 pg (27.0-31.0); Mean Corpuscular Volume 84.4 fL (80.0-94.0); Mean Platelet Volume 9.6 fL (7.4-10.4); Platelet Count 248 10^3/uL (130-400); Red Blood Cell Count 5.06 10^6/uL (4.70-6.10); Red Cell Dist. Width 16.1 % (11.5-14.5); White Blood Cell Count 8.4 10^3/uL (4.8-10.8)
[2024-11-20] MEDS: FOLVITE 1 MG PO (08:19)
[2024-11-20] MEDS: VITAMIN B1 100 MG PO ×2 (08:19→20:32)
[2024-11-20] MEDS: FLOMAX 0.4 MG PO (08:19)
[2024-11-20] MEDS: ZETIA 10 MG PO (08:19)
[2024-11-20 08:20] LABS: Blood Urea Nitrogen 39 mg/dl (9-20); Calcium 9.7 mg/dl (8.4-10.2); Carbon Dioxide 30 mmol/L (22-30); Chloride 97 mmol/L (98-107); Estimated Creatinine Clearance 44 ml/min; Glucose 125 mg/dl (70-99); Potassium 4.7 mmol/L (3.5-5.1); Sodium 133 mmol/L (135-145); eGFR > 60.00
[2024-11-20] MEDS: NSS (PRESERVATIVE FREE) 10 ML IV ×2 (08:20→20:32)
[2024-11-20] MEDS: PROTONIX IV 40 MG IV ×2 (08:20→20:33)
[2024-11-20 08:25] LABS: Glucose - Point of Care 131 mg/dl (70-99)
[2024-11-20] MEDS: NOVOLOG FLEXPEN-MODERATE RESISTANCE SC ×2 (10:43→13:41)
--- NOTE | 2024-11-20 11:00 | W.PN.PUL3 ---
Today's Communication / Plan
-
CXR on 11/19 showed resolved right-sided pneumothorax --> chest tube was placed to waterseal however CXR on 11/20 showed recurrence of right-sided pneumothorax
Chest tube placed back to -20 cmH2O suction and pneumothorax is almost fully resolved on repeat x-ray this afternoon
Continue with suction which is agreed upon by IR. No indication currently for upsizing chest tube
Repeat CXR tomorrow a.m.
Will follow
Outpatient follow-up recommended
Assessment
-
74-year-old man with past medical history significant for alcohol use disorder, type 2 diabetes, hypertension, GERD, peptic ulcer disease, right pontine stroke, COPD, cardiomyopathy, urinary retention, BPH, presented with dizziness and weakness and
fall over the past several weeks associated with the dizziness as well.
Patient has unsteady gait. Apparently has had syncopal episodes a few times.
[place] prior to admission with abrasion on the cheek. No respiratory symptoms.
Diagnosed with pneumothorax on the right post fall. Chest tube was placed in the emergency room.
-
Right pneumothorax post fall/trauma in the setting of underlying possibly emphysema
Status post chest tube placement 11/16/2024
Conditions present prior admission:
Alcohol abuse
Hypertension
Type 2 diabetes
History of rib fracture post falling
COPD with minimal emphysema
Active smoker
Hypertension
GERD
History of peptic ulcer disease
Urinary retention due to BPH
Assessment and plan:
Right posttraumatic pneumothorax-patient fell twice while using a snowblower, and the snowblower hit his ribs; he has been having unsteady gait with multiple falls SNAGGER. 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
Alcohol abuse disorder
Smoker with history of COPD. Not on inhalers as he has refused. Patient states that he does not know whether he has COPD or not. He denies shortness of breath with ambulation.
Denies chronic coughing or phlegm production.
-
Chest tube without air leak.
Chest x-ray 11/17/2024: On suction in the afternoon showed no recurrent pneumothorax
Chest tube placed to waterseal 11/17/2024 in the afternoon until 11/18/2024.
Chest x-ray on AM of 11/18 showed recurrent pneumothorax-looks like chest tube was retracted with the proximal end hole located outside the pleural cavity. Likely reason for recurrent pneumothorax.
Chest tube was exchanged by IR on 11/18/2024 and upsized from a 14 Fr to a 16 Fr chest tube, and repeat CXR today shows no pneumothorax
-
Patient asymptomatic, on room air. No subcutaneous air, he feels comfortable
-
Chest tube placed to waterseal on 11/19/2024, however CXR this morning on 11/20 shows recurrent right-sided pneumothorax. Chest tube placed back onto suction at -[id number] and repeat CXR this afternoon shows almost fully resolved right-sided pneumothorax.
Repeat CXR tomorrow
Dr. Lynch discussed the recurrence of his right side pneumothorax today with IR on 11/20/2024 and they believe that the patient needs additional time on suction for his lung to heal. No indication currently for upsizing his chest tube. Continue
to monitor with serial imaging.
-
Rest of the care per primary team.
-
Patient would benefit from outpatient pulmonary evaluation/follow-up in the future. Last followed with Dr. Lynch in the office - last visit 06/28/2024
Smoking cessation recommended-he smokes about 10 cigarettes/day.
-
Will follow
Total time spent today was 39 minutes for this encounter. Time includes reviewing laboratory test/imaging results, reviewing pertinent medical records, obtaining and reviewing medical history, performing an appropriate exam, ordering medications,
tests and procedures. Time also includes documentation of this encounter, coordinating patient care and communicating with other healthcare professionals. Total time does not include separately billed tests performed on this date of service.
Subjective Data
-
Date of Service:
Date of Service: November 20, 2024
Chief Complaint: Pulmonary Follow Up (Pneumothorax-trauma)
Subjective:
Patient seen and evaluated this morning. CXR this morning shows recurrence of right-sided pneumothorax. When he coughs there is a level 5 leak otherwise no leak during regular tidal breathing. He currently denies any shortness of breath. He is
eager to go home.
Review of Systems
General: Other (Negative unless mentioned above)
Objective Data
Data Reviewed
Vital Signs / I&O / Oxygen:
Vital Signs
Temp Pulse Resp BP Pulse Ox
98.1 F 71 16 140/75 97
11/20/24 07:00 11/20/24 07:00 11/20/24 07:00 11/20/24 07:00 11/20/24 07:00
Intake and Output
11/19/24 11/20/24 11/21/24
06:59 06:59 06:59
Intake Total 960 / 960 1440 / 1440
Output Total 710 / 710 604 / 604 0 / 0
Balance 250 / 250 836 / 836 0 / 0
SaO2 97
Physical Exam
General: Respiratory Distress (negative), Comfortable, Chills (negative) and Sweats (negative)
HEENT: Normocephalic and Anicteric
Cardiovascular: S1-S2, Rub (negative) and Peripheral Edema (negative)
Respiratory: Wheeze (negative), Crackles (negative), Rhonchi (negative), Non-Labored Respirations, Stridor (negative), Chest Tube (Right-sided chest tube in place on waterseal, airleak seen only during coughing) and Other (Diminished breath sounds
bilaterally)
GI: Soft, Non Distended, Non Tender and Normal Bowel Sounds
Neurology: Awake, Alert and Tremors (negative)
Skin: Warm, Dry, Cyanosis (negative) and Jaundice (negative)
Labs/Micro/Reports
Lab Data
11/20/24 07:44
11/20/24 07:44
[2024-11-20 12:28] LABS: Glucose - Point of Care 218 mg/dl (70-99)
[2024-11-20] MEDS: PLAVIX 75 MG PO (18:00)
[2024-11-20] MEDS: LIPITOR 80 MG PO (18:00)
[2024-11-20 18:06] LABS: Glucose - Point of Care 487 mg/dl (70-99)
--- NOTE | 2024-11-20 18:38 | PTCARENOTE ---
Pt's chest tube hooked up to suction with pulm @bedside in the morning. Repeat chest x-ray done in afternoon. Chest tube to remain on suction per pulm. Blood sugar at dinnertime unable to be read by accucheck due to high level. Stat BG ordered.
Staff qualified on the floor attempted to draw labs but unable. IV team notified. Will pass on to next shift.
[2024-11-20 19:26] LABS: Aldosterone, Serum 7.1 ng/dL; Aldosterone/Renin Activ Ratio 1.1 ratio (<=25.0); Renin Activity Results 6.2 ng/mL/hr
[2024-11-20 20:09] LABS: Glucose 605 mg/dl (70-99)
--- NOTE | 2024-11-20 20:15 | PTCARENOTE ---
Patients blood sugar noted, notified LICENSED SURVEYOR, orders received
[2024-11-20] MEDS: NOVOLOG FLEXPEN-LOW RESISTANCE SC (20:33)
[2024-11-20] MEDS: NOVOLOG FLEXPEN 20 UNITS SC (20:33)
[2024-11-20] MEDS: HUMULIN N KWIKPEN 16 UNITS SC (20:39)
[2024-11-20] MEDS: FARXIGA 10 MG PO (21:28)
[2024-11-20 23:40] LABS: Glucose - Point of Care 272 mg/dl (70-99)
[2024-11-21] VITALS (7 sets, daily range): BP systolic 96–158; BP diastolic 56–78; PULSE 63–78
[2024-11-21 06:42] LABS: Hematocrit 41.8 % (39.0-52.0); Hemoglobin 14.4 g/dL (13.0-18.0); Mean Corp Hgb Conc. 34.4 g/dL (33.0-37.0); Mean Corpuscular Hgb 29.1 pg (27.0-31.0); Mean Corpuscular Volume 84.4 fL (80.0-94.0); Mean Platelet Volume 10.2 fL (7.4-10.4); Platelet Count 260 10^3/uL (130-400); Red Blood Cell Count 4.95 10^6/uL (4.70-6.10); Red Cell Dist. Width 15.4 % (11.5-14.5); White Blood Cell Count 8.5 10^3/uL (4.8-10.8)
[2024-11-21 07:13] LABS: Glucose - Point of Care 65 mg/dl (70-99)
[2024-11-21 07:36] LABS: Blood Urea Nitrogen 47 mg/dl (9-20); Calcium 9.6 mg/dl (8.4-10.2); Carbon Dioxide 28 mmol/L (22-30); Chloride 101 mmol/L (98-107); Estimated Creatinine Clearance 48 ml/min; Glucose 34 mg/dl (70-99); Potassium 4.3 mmol/L (3.5-5.1); Sodium 135 mmol/L (135-145); eGFR > 60.00
[2024-11-21 07:45] LABS: Glucose - Point of Care 28 mg/dl (70-99)
[2024-11-21] MEDS: DEXTROSE 50% SYRINGE 12.5 GRAMS IV (07:50)
--- NOTE | 2024-11-21 08:14 | PN.DE.MGMTRT ---
Insulin Management
- -
11/21/2024: Diabetes Management follow up
74-year-old male w/PMH: Cardiomyopathy, HTN, HLD, h/o CVA 2014, COPD, GERD w/gastric ulcers, daily alcohol use, tobacco use, colon polyps, urinary retention who presented to the ER on 11/16/2024 after having falls and dizziness, resulting in a
pneumothorax on the right with Chest tube placement in the ED and injury to his face. He was noted for hyperglycemia on admission with a glucose level of 465 and was administered 12 units of NovoLog that resulted into hypoglycemia while NPO.
Pt awake, alert, oriented, sitting up in bed, offers no complaints, able to discuss diabetes care plan. at bedside
Noted for recurrent episodes of Hypoglycemia, pt is attributing both incidents to insulin administration time, he states that on 2 different occasions his insulin was administer 1.5 hrs after eating his meal and that it's not how he takes his
insulin at home.
His NPH dose was held this morning due to Hypoglycemia, his pre-lunch blood sugar is 270 and he has ordered his lunch
Will give NPH 15 units now and reduce PM dose to 10 units. Will change corrective insulin from Moderate to low corrective AC
Will follow and make insulin adjustments if necessary.
Diabetes History
- -
Type of Diabetes: 2 requiring insulin
Pre-Admission Diabetes Regimen
11/20/24 11/21/24
07:44 06:23
Creatinine 1.2 1.1
Lab Results
Hemoglobin A1c 9.8 % (4.0-5.6) H 11/17/24 06:38
Insulin Pump Settings
IP Diabetes Regimen
11/20/24 11/20/24 11/20/24
07:44 08:24 12:27
Glucose 125 H
POC Glucose 131 H 218 H
11/20/24 11/20/24 11/20/24
18:02 19:43 23:39
Glucose 605 H*
POC Glucose 487 H* 272 H
11/21/24 11/21/24 11/21/24
06:23 07:07 07:42
Glucose 34 L*
POC Glucose 65 L 28 L*
Meal type: Lunch
Meal type: Breakfast
Meal type: Breakfast
Amount consumed: 100%
Amount consumed: 100%
Amount consumed: 100%
Patient Education
[2024-11-21 08:15] LABS: Glucose - Point of Care 153 mg/dl (70-99)
[2024-11-21] MEDS: NOVOLOG FLEXPEN-LOW RESISTANCE SC (08:28)
[2024-11-21] MEDS: NSS (PRESERVATIVE FREE) 10 ML IV (08:29)
[2024-11-21] MEDS: VITAMIN B1 100 MG PO ×2 (08:29→21:59)
[2024-11-21] MEDS: PROTONIX IV 40 MG IV (08:29)
[2024-11-21] MEDS: FLOMAX 0.4 MG PO (08:29)
[2024-11-21] MEDS: ZETIA 10 MG PO (08:29)
[2024-11-21] MEDS: FOLVITE 1 MG PO (08:30)
--- NOTE | 2024-11-21 10:33 | W.PN.NEURO.1 ---
Today's Communication / Plan
-
.
Neuro Assessment/Plan
Assessment
Orthostatic vital signs were negative
Head CT imgs rev'd and discussed with patient, small area of infarct right parieto-occipital junction, MCA territory, could be the related to the Right carotid stenosis. Stable chronic lacunar infarcts in bilateral basal ganglia, left thalamus,
right cerebellum. these four appear to be related to small vessel disease.
CTA head/neck imgs rev'd with patient, showing Left Carotid Bulb 80% stenosis, right carotid bulb 50% stenosis
I don't think the patients' dizziness and falls are related to his carotid disease. He may benefit from carotid interventions bilaterally to lower his stroke risk, but it does not address his presenting complaints, and should therefore be considered
as an outpatient. I don't believe that a brain MRI, even if we find stroke #6, changes this reasoning, and he should stay on Plavix 75 and Lipitor 80, unless the Plavix needs to be held for GI bleeding
I believe his falls, handwriting changes, and possibly the dizziness is which is mild, due to Parkinson's disease, discussed starting Sinemet, they want to think about this
Subjective/Objective
Subjective Data
Date of Service: November 21, 2024
Neurology follow-up note
HPI: This is a 74-year-old man who presented to [facility] on 11/16/2024 with frequent falls and dizziness
According to the patient and his spouse the patient experienced three falls within a week prior to admission. The first fall occurred outside in wet and snowy conditions, requiring EMT assistance to get up. The second fall happened while shoveling
snow. The most recent fall was unwitnessed and occurred in the driveway, resulting in facial bruising and rib injury. The patient denies any pain, changes in vision, or strength issues at present. He reports experiencing dizziness during the falls
but denies current dizziness. His vision was described as 'a little fuzzy' at the time of the falls.
The patient has a history of two previous strokes, which have affected his cognitive function.
His reports a gradual decline in memory and cognitive abilities over the past 1-2 years, with noticeable changes in the last 4 months. The patient struggles with managing his type 1 diabetes, often forgetting insulin doses or administering too
much, leading to frequent hypoglycemic episodes. He has also experienced a 20-pound weight loss over the last 3 months, accompanied by poor appetite and occasional nausea.
The patient's notes that he has become slower, more forgetful, and occasionally angry or frustrated when unable to perform tasks. He has difficulty managing finances and paying bills on time.
Workup was notable for hyponatremia, hyperglycemia, severe left ICA stenosis, right pneumothorax.
Review of blood work was notable for labile glucose level(from 604 to 28), hemoglobin A1c�9.8, normal vit b12, TFTs
EKG: NSR, QTc Int : 479 ms
PDMP:no Rexd meds
CTA head/neck-No high-grade stenosis or occlusion of the t[place] of [place], severe left ICA stenosis.
MRA head- Luminal irregularity of the distal branches of the middle cerebral arteries bilaterally, suggesting small vessel disease.
Luminal irregularity of the posterior cerebral arteries bilaterally, right greater than left, and suggestive of diffuse atherosclerotic disease.
Loss of flow signal within the superior vertebral arteries, which could be due to saturation effects. Correlating with contrast-enhanced MR angiography of the neck, there is narrowing and luminal irregularity of the superior left vertebral artery
suggestive of diffuse atherosclerotic disease. Mild irregularity of the superior right vertebral artery, with less than 50% diameter reduction on contrast-enhanced exam.
TTE-LVEF 50-55%, mild
PMH: R pontine stroke(2014), R midbrain stroke(2020), chronic sinus disease, ETOH addiction, CAD, HTN, DLP, type I DM, GERD, PUD, COPD, BPH, h/o displaced left 10th rib fracture
PSH: chest tube placement 11/16/2024, TURP, tonsillectomy
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
FH: No family history of neurodegenerative disease
All: NKDA
ROS: Positive for unintentional weight loss
HENT: Positive for intermittent dizziness
Eyes: Negative. Negative for photophobia, pain and visual disturbance.
Respiratory: Negative for cough, choking and shortness of breath.
Cardiovascular: Negative for chest pain, palpitations and leg swelling.
Gastrointestinal: Negative for abdominal pain and vomiting.
Endocrine: Negative. Negative for cold intolerance.
Genitourinary: Positive for urinary urgency
Musculoskeletal: Negative for back pain, gait problem, neck pain and neck stiffness.
Skin: Negative for rash.
Allergic/Immunologic: Negative. Negative for immunocompromised state.
Neurological: Positive for frequent falls, progressive cognitive decline
Psychiatric/Behavioral: Positive for intermittent anger
General: Well developed. In no acute distress.
Cardio: Regular rate and rhythm without murmur. Extremities are without cyanosis or edema.
Neuro:
Mental Status: Alert, oriented to person, place, and date. Normal attention and recall. Good fund of knowledge. Follows complex requests across the midline. Comprehension, naming, and repetition intact. Immediate and delayed recall 3/3.
Cranial Nerves: Pupils are equally round and reactive to light. EOMs full. Visual chan full to confrontation. No ptosis. No nystagmus. V1-V3 intact to light touch and pinprick bilaterally, symmetric. Face symmetric. Normal hearing AU. The
palate elevated well. SCMs and traps 5/5. Tongue midline. Mild lingual dysarthria.
Motor: Increased motor tone in upper extremities. No pronator or arm drift. Strength 5/5 throughout. No clonus.
Reflexes: 0+ throughout the upper extremities and knees. 0/2 in AJs. Plantar responses flexor bilaterally. Positive grasp on the right
Sensory: Absent vibration at the toes, reduced at the ankles and preserved at the knees
Coordination: No dysmetria or tremor.
Gait: deferred
Assessment and Plan:
I. Recurrent falls, multifocal
II. Mild parkinsonism
II. 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
III. Encephalopathy (vascular, toxic ?, neurodegenerative)
IV. Severe left ICA stenosis, asymptomatic
V. Recurrent falls. Differential diagnosis includes postural instability, secondary to polyneuropathy, symptomatic hypoglycemia, less likely cardiac arrhythmia or seizures.
-Fall precautions
-Please obtain orthostatic vital signs
-Continue telemetry monitoring
-Medication administration supervision
-C-spine MRI without
-Brain MRI without emily
-Continue Plavix 75 mg daily
-Diabetic education nurse consult
-Polyneuropathy blood
-PT
-OP NCS/EMG of LUE/LE
-OP neuropsychological evaluation
I personally reviewed all radiology and labs along with past medical records pertinent to current medical problems. Total time spent in patient care is 60 minutes.
Thank you for allowing us to participate in the care of this patient. We will continue to follow. Please do not hesitate to contact us with any questions or concerns.
Objective Data
Vital Signs
Temp Pulse Resp BP Pulse Ox
36.7 C 67 20 143/71 95
11/21/24 07:40 11/21/24 07:40 11/21/24 07:40 11/21/24 07:40 11/21/24 07:40
Lab Results
11/21/24 06:23
11/21/24 06:23
Sodium 135 mmol/L (135-145) 11/21/24 06:23
Potassium 4.3 mmol/L (3.5-5.1) 11/21/24 06:23
BUN 47 mg/dl (9-20) H 11/21/24 06:23
Glucose 34 mg/dl (70-99) L* 11/21/24 06:23
Calcium 9.6 mg/dl (8.4-10.2) 11/21/24 06:23
Vitamin B12 575 pg/ml (239-931) 11/16/24 13:48
Patient Allergies
No Known Allergies Allergy (Verified 11/16/24 13:11)
Vital Signs and Labs
-
Vital Signs and Labs:
Vital Signs
Temp Pulse Resp BP Pulse Ox
36.7 C 67 20 143/71 95
11/21/24 07:40 11/21/24 07:40 11/21/24 07:40 11/21/24 07:40 11/21/24 07:40
Lab Results
11/21/24 06:23
11/21/24 06:23
Sodium 135 mmol/L (135-145) 11/21/24 06:23
Potassium 4.3 mmol/L (3.5-5.1) 11/21/24 06:23
BUN 47 mg/dl (9-20) H 11/21/24 06:23
Glucose 34 mg/dl (70-99) L* 11/21/24 06:23
Calcium 9.6 mg/dl (8.4-10.2) 11/21/24 06:23
Vitamin B12 575 pg/ml (239-931) 11/16/24 13:48
Medications
-
Medications:
Generic Name Dose Route Start Last Admin
Trade Name Freq PRN Reason Stop Dose Admin
Acetaminophen 1,000 mg 11/16/24 20:52 11/16/24 23:49
Acetaminophen 500 Mg Tablet PO 12/14/24 20:51 1,000 mg
DAILYPRN PRN Administration
mild pain
Atorvastatin Calcium 80 mg 11/17/24 18:00 11/20/24 18:00
Atorvastatin (Lipitor) 80 Mg Tablet PO 12/15/24 17:59 80 mg
QPM TRAN Administration
Clopidogrel Bisulfate 75 mg 11/17/24 18:00 11/20/24 18:00
Clopidogrel 75 Mg Tablet PO 12/15/24 17:59 75 mg
DAILY@1800 TRAN Administration
Dapagliflozin 10 mg 11/19/24 18:00 11/19/24 17:08
Dapagliflozin (Farxiga) 10 Mg Tablet PO 12/17/24 17:59 10 mg
QPM TRAN Administration
Dextrose 12.5 grams 11/17/24 12:47 11/21/24 07:50
Dextrose 50% (0.5 Grams/Ml) 50 Ml Syringe IV 12/15/24 12:46 12.5 grams
[id number] PRN Administration
hypoglycemia (BG < 70 mg/dL)
Protocol
Ezetimibe 10 mg 11/17/24 08:00 11/21/24 08:29
Ezetimibe (Zetia) 10 Mg Tablet PO 12/15/24 07:59 10 mg
DAILY TRAN Administration
Enalapril Maleate 20 mg 11/16/24 22:00 11/17/24 08:41
Enalapril 10 Mg Tablet PO 12/14/24 21:59 20 mg
BID TRAN Administration
Folic Acid 1 mg 11/17/24 08:00 11/21/24 08:30
Folic Acid 1 Mg Tablet PO 12/15/24 07:59 1 mg
DAILY TRAN Administration
Glucagon 1 mg 11/16/24 20:52
Glucagon 1 Mg Vial IM 12/14/24 20:51
PRN PRN
hypoglycemia
Protocol
Hydralazine HCl 5 mg 11/17/24 12:27 11/20/24 03:58
Hydralazine 20 Mg/Ml Vial IV 12/15/24 12:26 5 mg
Q6HPRN PRN Administration
SBP>160 mmHg
Folic Acid 1 mg/ Sodium 50.2 mls @ 200.8 mls/hr 11/16/24 20:52
Chloride IV 12/14/24 20:51
DAILYPRN PRN
if NPO
Insulin Aspart 0 units 11/20/24 16:30 11/21/24 08:28
Insulin Aspart Low Resistance 300 Units/3 Ml Pen.Injctr SC 12/18/24 16:29 Not Given
AC TRAN
Protocol
Insulin Human NPH 16 units 11/17/24 18:00 11/19/24 18:16
Insulin Nph (100 Units/Ml) 3 Ml Kwikpen SC 12/15/24 17:59 16 units
QPM TRAN Administration
Insulin Human NPH 28 units 11/20/24 08:00
Insulin Nph (100 Units/Ml) 3 Ml Kwikpen SC 12/18/24 07:59
DAILY TRAN
Lorazepam 1 mg 11/16/24 20:52
Lorazepam 1 Mg Tablet PO 12/14/24 20:51
Q2HPRN PRN
MSAS 5-7
Lorazepam 1 mg 11/16/24 20:52
Lorazepam 2 Mg/Ml Vial IV 12/14/24 20:51
Q1HPRN PRN
MSAS 8-11
Lorazepam 2 mg 11/16/24 20:52
Lorazepam 2 Mg/Ml Vial IV 12/14/24 20:51
Q1HPRN PRN
MSAS > 11
Pantoprazole Sodium 40 mg 11/17/24 12:00 11/21/24 08:29
Pantoprazole Sodium 40 Mg/10 Ml Vial IV 12/15/24 11:59 40 mg
BID TRAN Administration
Sodium Chloride 0 ml 11/16/24 20:52
Sodium Chloride 0.9% (Preservative Free) 10 Ml Vial IV 12/14/24 20:51
PRN PRN
To dilute IV Ativan
Protocol
Sodium Chloride 0 flush 11/16/24 21:00
Sodium Chloride 0.9% (Flush) Syringe IV 12/14/24 20:59
PER PROTOCOL TRAN
Sodium Chloride 10 ml 11/17/24 12:00 11/21/24 08:29
Sodium Chloride 0.9% (Preservative Free) 10 Ml Vial IV 12/15/24 11:59 10 ml
Q12 TRAN Administration
Tamsulosin HCl 0.4 mg 11/17/24 08:00 11/21/24 08:29
Tamsulosin 0.4 Mg Capsule PO 12/15/24 07:59 0.4 mg
DAILY TRAN Administration
Thiamine HCl 100 mg 11/19/24 20:00 11/21/24 08:29
Thiamine 100 Mg Tablet PO 12/17/24 19:59 100 mg
BID TRAN Administration
Home Medications
-
Home Medications
enalapril maleate 20 mg tablet 20 mg PO BID Blood pressure 01/30/15
clopidogrel 75 mg tablet 75 mg PO DAILY Blood Clot Prevention/Tx 05/26/23
atorvastatin 80 mg tablet 80 mg PO QPM High Cholesterol 08/19/23
dapagliflozin propanediol 10 mg tablet ([facility]) 10 mg PO QPM Diabetes 01/21/24
ezetimibe 10 mg tablet 10 mg PO DAILY High Cholesterol 01/21/24
insulin NPH isoph U-100 human 100 unit/mL subcutaneous suspension 16 unit SC QPM Diabetes 01/21/24
insulin NPH isoph U-100 human 100 unit/mL subcutaneous suspension 26 unit SC DAILY Diabetes 01/21/24
insulin lispro 100 unit/mL subcutaneous solution (Humalog U-100 Insulin) 1 - 3 unit SC DAILYPRN PRN diabetes 01/21/24
acetaminophen 500 mg tablet 1,000 mg PO DAILYPRN PRN mild pain 07/06/24
tamsulosin 0.4 mg capsule 0.4 mg PO DAILY Urinary Issue 11/16/24
--- NOTE | 2024-11-21 11:24 | W.PN.HOSP.TC ---
Today's Communication/Plan
-
Follow-up with clinical nurse educator recommendation
Follow-up with pulmonary recommendation
Reconsult neurology, requested the brain MRI
Resume low-dose enalapril
Assessment / Plan
Assessment / Plan
Physical Exam
General: \\ No Apparent Distress
HEENT: Normocephalic, Moist mucous membranes
Respiratory: Decreased breath sounds bilaterally, no wheezes, right sided chest tube
Cardiac: S1/S2 and Regular Rhythm
GI: Soft, Non Tender, Non Distended and Normal Bowel Sounds
Musculoskeletal: No Cyanosis and No Edema
Skin: Warm. Dry.
Neuro: Alert. Awake. Nonfocal/grossly intact bilaterally.
Psych: calm
Assessment/Plan
74-year-old male presented with dizziness and weakness and falls over the several weeks (prior to presentation) associated with dizziness.
# Fall resulting in moderate right acute traumatic pneumothorax in the setting of underlying possibly emphysema
-Chest tube placed
- Right-sided pneumothorax has returned while patient is on Water seal -- so resume suction as per pulmonary
- Chest x ray 11/21 showed: No pneumothorax seen on the current chest x-ray.
F/w pulmonary recommendations.
# Dizziness/weakness and falls/unsteadiness
# Recent Episodes of Possible Syncope
-Suspected multifactorial with possible hypoglycemia (has episodes of low blood sugars at home), possible hypotension at home, alcohol use, possible Parkinson's Disease as per
neurology
-Alcohol level negative
-TSH normal at 1.54, and Vitamin B12 normal at 575
-Neurology consulted as per vascular surgery's request to consult neurology; neurology communicated via [place] [facility] that this can be managed as an
outpatient, and that patient denies weakness or dizziness, just complaining of falls. Exam with a little bit of Parkinson�s; the right parietooccipital infarction
on head ct is in the MCA territory but it looks old so therefore not an inpatient problem.
-Neurology mentioned that patient's falls, handwriting changes, and possibly the dizziness is which is mild, due to Parkinson's disease, discussed starting Sinemet, they want to think about this
-CT Head showed small area of infarct right parieto-occipital junction, MCA territory, could be the related to the Right carotid stenosis. Stable chronic lacunar infarcts in bilateral basal ganglia, left thalamus, right cerebellum.
-CTA head/neck showed Left Carotid Bulb 80% stenosis, right carotid bulb 50% stenosis
-Brain MRI is not needed as per my communication with neurology is asking about brain MRI, re-consulted neurology
-Patient should stay on Plavix 75 and Lipitor 80, unless the Plavix needs to be held for GI bleeding
-Echo without any change compared to echo about 1 year ago
-Check orthostatic vital signs when able
# Left carotid artery stenosis -- asymptomatic
-CTA showed bilateral carotid bifurcation calcified atherosclerosis contribute to 80% stenosis left carotid bulb and 50% of the right carotid bulb
-Vascular ultrasound results noted
-Vascular surgery consulted -- vascular surgery requested hospitalist consult neurology, therefore neurology consult placed
-Can benefit from outpatient carotid interventions bilaterally to lower patient's stroke risk
-Carotid disease not causing patient's dizziness, as per neurology
#Hyperkalemia - RESOLVED
#Upper GI Bleed/Copious Coffee Ground Emesis on 11/17/24
-Protonix 40 mg IV BID started
-PRN IV antiemetics
-GI consulted for evaluation of EGD
-Suspected component of esophagitis causing patient's symptoms versus gastritis/duodenitis versus less likely other etiologies
-Per GI, deferring any plans for an EGD given pneumothorax
-Consider EGD as an outpatient along with a colonoscopy at that time as he is overdue in terms of surveillance
-AVOID NSAIDs, limit alcohol intake
# Type 2 Diabetes Mellitus
# Hyperglycemia
Labile DM
Patient reports that his BS are better managed at home, but he is not eating well, does not like hospital diabetic food.
-Diabetes [employer] consulted, appreciate evaluation and recommendations
# Pseudohyponatremia secondary to hyperglycemia
-Continue to monitor
# Minimally displaced 10th rib fracture
-From prior chest x-ray on 10/31
# Hyponatremia, mild
#Active smoker
-Nicotine patch
#Right pontine CVA
-Continue Plavix, statin
#Alcohol use disorder
-Thiamine and folate
-Alcohol withdrawal protocol
No signs of withdrawal
#Essential hypertension
- Resume low dose enalapril
#GERD/Peptic ulcer disease
#Urinary retention secondary to BPH
-Continue tamsulosin
-Bladder scans protocol/monitor for urinary retention
#Hypercholesterolemia
-Continue statin, Zetia
Code Status: Full code
DVT Prophylaxis: SCDs. No chemical DVT prophylaxis given coffee ground emesis earlier this admission.
Diet: Diabetic diet
Total time spent to see the patient, examine the patient, review data and lab results, discuss treatment plan with patient and nursing staff around 55 minutes
Anticipated Discharge: > 48 hours
Subjective/Interval History
-
Date of Service: November 21, 2024
No sob
No chest pain
No fevers
Objective Data
-
Labs:
Laboratory Results
11/21/24
06:23
WBC 8.5
Hgb 14.4
Hct 41.8
Plt Count 260
Sodium 135
Potassium 4.3
Chloride 101
Carbon Dioxide 28
BUN 47 H
Creatinine 1.1
Glucose 34 L*
Calcium 9.6
Vital Signs:
Vital Signs
Temp Pulse Resp BP Pulse Ox
98.1 F 74 16 143/71 95
11/21/24 11:22 11/21/24 11:22 11/21/24 11:22 11/21/24 07:40 11/21/24 11:22
I&O
11/20/24 11/21/24 11/22/24
06:59 06:59 06:59
Intake Total 1440 / 1440 720 / 720
Output Total 604 / 604 1954 / 1954
Balance 836 / 836 -1235 / -1235
[2024-11-21 11:29] LABS: Glucose - Point of Care 270 mg/dl (70-99)
[2024-11-21] MEDS: NOVOLOG FLEXPEN-LOW RESISTANCE 3 UNITS SC (12:30)
[2024-11-21] MEDS: HUMULIN N KWIKPEN 15 UNITS SC (12:31)
--- NOTE | 2024-11-21 13:53 | W.PN.PUL3 ---
Today's Communication / Plan
-
PTx improved on suction, could not tolerate water seal
Has persistent infrequent air leak noted in chamber, would hold off on water seal attempt until none seen
This was reviewed with patient
Encouraged ambulation in room/OOB
Assessment
-
74-year-old man with past medical history significant for alcohol use disorder, type 2 diabetes, hypertension, GERD, peptic ulcer disease, right pontine stroke, COPD, cardiomyopathy, urinary retention, BPH, presented with dizziness and weakness and
fall over the past several weeks associated with the dizziness as well. Patient has unsteady gait. Apparently has had syncopal episodes a few times.
[place] prior to admission with abrasion on the cheek. No respiratory symptoms. Diagnosed with pneumothorax on the right post fall. Chest tube was placed in the emergency room.
Right pneumothorax post fall/trauma in the setting of underlying possibly emphysema
Status post chest tube placement 11/16/2024
Conditions present prior admission:
Alcohol abuse
Hypertension
Type 2 diabetes
History of rib fracture post falling
COPD with minimal emphysema
Active smoker
Hypertension
GERD
History of peptic ulcer disease
Urinary retention due to BPH
Plan
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
Alcohol abuse disorder
Smoker with history of COPD. Not on inhalers as he has refused. Patient states that he does not know whether he has COPD or not. He denies shortness of breath with ambulation.
Denies chronic coughing or phlegm production.
Chest tube with occasional air leak.
Chest x-ray 11/17/2024: On suction in the afternoon showed no recurrent pneumothorax
Chest tube placed to waterseal 11/17/2024 in the afternoon until 11/18/2024.
Chest x-ray on AM of 11/18 showed recurrent pneumothorax-looks like chest tube was retracted with the proximal end hole located outside the pleural cavity. Likely reason for recurrent pneumothorax.
Chest tube was exchanged by IR on 11/18/2024 and upsized from a 14 Fr to a 16 Fr chest tube, and repeat CXR today shows no pneumothorax
He is likely to remain on suction, can consider waterseal once air leak stops
Patient asymptomatic, on room air. No subcutaneous air, he feels comfortable
Chest tube placed to waterseal on 11/19/2024, however CXR this morning on 11/20 shows recurrent right-sided pneumothorax. Chest tube placed back onto suction at -[id number] and repeat CXR this afternoon shows almost fully resolved right-sided pneumothorax.
Dr. Lynch discussed the recurrence of his right side pneumothorax today with IR on 11/20/2024 and they believe that the patient needs additional time on suction for his lung to heal. No indication currently for upsizing his chest tube. Continue
to monitor with serial imaging.
Patient would benefit from outpatient pulmonary evaluation/follow-up in the future. Last followed with Dr. Lynch in the office - last visit 06/28/2024
Smoking cessation recommended-he smokes about 10 cigarettes/day.
Will follow
Diagnostic Data
CXR 11/21/24- No pneumothorax seen on the current chest x-ray.
CT Chest 12/15/23- Opacification with some tree-in-bud opacities in the lower lobe of the left lung has virtually completely resolved in the interval since prior study. There is no new focal parenchymal opacification, pneumothorax, pleural effusion
or pericardial effusion. Evaluation of the gina are markedly limited without intravenous contrast. There is no significant mediastinal or axillary lymphadenopathy. Coronary artery calcifications are noted.
ECHO 11/18/24- Normal left ventricular size with low normal systolic function. LVEF 50-55%. Akinesis of apical septum and apical inferior wall. Normal RV size and function. Mild aortic stenosis (21/10 mmHg). No change compared to echocardiogram on
10/29/2023.
Total time spent today was 50 minutes for this encounter. Time includes reviewing laboratory test/imaging results, reviewing pertinent medical records, obtaining and reviewing medical history, performing an appropriate exam, ordering medications,
tests and procedures. Time also includes documentation of this encounter, coordinating patient care and communicating with other healthcare professionals. Total time does not include separately billed tests performed on this date of service.
Subjective Data
-
Date of Service:
Date of Service: November 21, 2024
Chief Complaint: Pulmonary Follow Up (Pneumothorax-trauma)
Subjective:
No new events, remains stable on RA
No new complaints, sleeping on my arrival
Objective Data
Data Reviewed
Vital Signs / I&O / Oxygen:
Vital Signs
Temp Pulse Resp BP Pulse Ox
98.1 F 74 16 147/77 95
11/21/24 11:22 11/21/24 11:22 11/21/24 11:22 11/21/24 11:22 11/21/24 11:22
Intake and Output
11/20/24 11/21/24 11/22/24
06:59 06:59 06:59
Intake Total 1440 / 1440 720 / 720
Output Total 604 / 604 1955 / 1954
Balance 836 / 836 -1235 / -1235
SaO2 95
Physical Exam
General: Respiratory Distress (negative), Comfortable, Chills (negative) and Sweats (negative)
HEENT: Normocephalic, Anicteric and Moist Mucous Membranes
Cardiovascular: S1-S2, Regular Rhythm, Rub (negative) and Peripheral Edema (negative)
Respiratory: Wheeze (negative), Crackles (negative), Rhonchi (negative), Non-Labored Respirations, Stridor (negative), Chest Tube (Right-sided chest tube in place on waterseal, airleak seen only during coughing) and Other (Diminished breath sounds
bilaterally)
GI: Soft, Non Distended, Non Tender and Normal Bowel Sounds
Neurology: Awake, Alert, Oriented and Tremors (negative)
Skin: Warm, Dry, Cyanosis (negative) and Jaundice (negative)
Labs/Micro/Reports
Lab Data
11/21/24 06:23
11/21/24 06:23
Microbiology
11/19/24 06:05 Urine Urine Culture - Final
--- NOTE | 2024-11-21 14:47 | CM ---
Patient functionally at baseline, still requiring acute care.
Plan: Case management will continue to follow and assist with discharge planning. Home when stable.
[2024-11-21 16:30] LABS: Glucose - Point of Care 349 mg/dl (70-99)
[2024-11-21] MEDS: LIPITOR 80 MG PO (18:20)
[2024-11-21] MEDS: PLAVIX 75 MG PO (18:20)
[2024-11-21 18:42] LABS: Glucose - Point of Care 229 mg/dl (70-99)
[2024-11-21] MEDS: HUMULIN N KWIKPEN 10 UNITS SC (19:12)
[2024-11-21] MEDS: NOVOLOG FLEXPEN-LOW RESISTANCE 2 UNITS SC (19:13)
[2024-11-21 21:48] LABS: Glucose - Point of Care 312 mg/dl (70-99)
[2024-11-21] MEDS: PROTONIX 40 MG PO (21:59)
[2024-11-21] MEDS: VASOTEC 5 MG PO (21:59)
--- NOTE | 2024-11-22 07:33 | PN.DE.MGMTRT ---
Insulin Management
- -
11/22/2024: Diabetes Management follow up
Patient admitted 11/16 with dizziness, injury to his face, falls, resulting in a pneumothorax. PMH: Cardiomyopathy, HTN, HLD, h/o CVA 2014, COPD, GERD w/gastric ulcers, daily alcohol use, tobacco use, colon polyps, urinary retention. Chest tube
placement in IR . He was noted for hyperglycemia on admission with a glucose level of 465 and was administered 12 units of NovoLog that resulted into hypoglycemia while NPO.
Pt awake, alert, oriented, sitting up in bed, offers no complaints, able to discuss diabetes care plan. at bedside. Patient states he has type 1 diabetes, has always taken insulin. Will continue to hold Farxiga. Patient adamant that how he
takes his insulin at home is best. He only takes humalog if before the meal his glucose is 180 or greater and then he uses a SS.
Patient received NPH dinner dose 10 units 11/21. Will restart AM NPH 15 units with breakfast, start 3 units novolog AC and low corrective AC
Will follow and make insulin adjustments if necessary.
Discussed with nurse
Diabetes History
- -
Type of Diabetes: 1
Pre-Admission Diabetes Regimen
11/21/24
06:23
Creatinine 1.1
Lab Results
Hemoglobin A1c 9.8 % (4.0-5.6) H 11/17/24 06:38
Insulin Pump Settings
IP Diabetes Regimen
11/21/24 11/21/24 11/21/24
06:23 07:42 08:13
Glucose 34 L*
POC Glucose 28 L* 153 H
11/21/24 11/21/24 11/21/24
11:25 16:28 18:40
Glucose
POC Glucose 270 H 349 H 229 H
11/21/24
21:47
Glucose
POC Glucose 312 H
Meal type: Lunch
Meal type: Breakfast
Amount consumed: 80%
Amount consumed: 95%
Patient Education
[2024-11-22 07:37] VITALS: BP 133/63
[2024-11-22 07:51] LABS: Glucose - Point of Care 179 mg/dl (70-99)
[2024-11-22] MEDS: VASOTEC 5 MG PO ×2 (08:33→20:28)
[2024-11-22] MEDS: FLOMAX 0.4 MG PO (08:33)
[2024-11-22] MEDS: PROTONIX 40 MG PO ×2 (08:33→20:22)
[2024-11-22] MEDS: VITAMIN B1 100 MG PO ×2 (08:33→20:22)
[2024-11-22] MEDS: FOLVITE 1 MG PO (08:34)
[2024-11-22] MEDS: NOVOLOG FLEXPEN-LOW RESISTANCE 1 UNITS SC (08:36)
--- NOTE | 2024-11-22 09:33 | W.PN.NEURO.1 ---
Today's Communication / Plan
-
.
Subjective/Objective
Subjective Data
Date of Service: November 22, 2024
Neurology follow-up note
Mr. Pichardo reports no complaints. No reports of headaches, change in vision, visual hallucinations, tremor or leg weakness.
CTA head/neck-no high-grade stenosis or occlusion of the ho-chunk of [place], severe left ICA stenosis.
MRA head- Luminal irregularity of the distal branches of the middle cerebral arteries bilaterally, suggesting small vessel disease.
Luminal irregularity of the posterior cerebral arteries bilaterally, right greater than left, and suggestive of diffuse atherosclerotic disease.
Loss of flow signal within the superior vertebral arteries, which could be due to saturation effects. Correlating with contrast-enhanced MR angiography of the neck, there is narrowing and luminal irregularity of the superior left vertebral artery
suggestive of diffuse atherosclerotic disease. Mild irregularity of the superior right vertebral artery, with less than 50% diameter reduction on contrast-enhanced exam.
TTE-LVEF 50-55%, mild
PMH: R pontine stroke(2014), R midbrain stroke(2020), chronic sinus disease, ETOH addiction, CAD, HTN, DLP, type I DM, GERD, PUD, COPD, BPH, h/o displaced left 10th rib fracture
PSH: chest tube placement 11/16/2024, TURP, tonsillectomy
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
FH: No family history of neurodegenerative disease
All: NKDA
ROS: Positive for unintentional weight loss
HENT: Positive for intermittent dizziness
Eyes: Negative. Negative for photophobia, pain and visual disturbance.
Respiratory: Negative for cough, choking and shortness of breath.
Cardiovascular: Negative for chest pain, palpitations and leg swelling.
Gastrointestinal: Negative for abdominal pain and vomiting.
Endocrine: Negative. Negative for cold intolerance.
Genitourinary: Positive for urinary urgency
Musculoskeletal: Negative for back pain, gait problem, neck pain and neck stiffness.
Skin: Negative for rash.
Allergic/Immunologic: Negative. Negative for immunocompromised state.
Neurological: Positive for frequent falls, progressive cognitive decline
Psychiatric/Behavioral: Positive for confusion
General: Well developed. In no acute distress.
Cardio: Regular rate and rhythm without murmur. Extremities are without cyanosis or edema.
Neuro:
Mental Status: Alert, oriented to person, place, and date. Normal attention and recall. Good fund of knowledge. Follows complex requests across the midline. Comprehension, naming, and repetition intact. Immediate and delayed recall 3/3.
Cranial Nerves: Pupils are equally round and reactive to light. EOMs full. Visual chan full to confrontation. No ptosis. No nystagmus. V1-V3 intact to light touch and pinprick bilaterally, symmetric. Face symmetric. Normal hearing AU. The
palate elevated well. SCMs and traps 5/5. Tongue midline. Mild lingual dysarthria.
Motor: Increased motor tone in right greater than left wrist with supplementation No pronator or arm drift. Strength 5/5 throughout. No clonus.
Reflexes: 0+ throughout the upper extremities and knees. 0/2 in AJs. Plantar responses flexor bilaterally. Positive grasp on the right
Sensory: Absent vibration at the toes, reduced at the ankles and preserved at the knees
Coordination: Reduced fine finger movements on the right no dysmetria or tremor.
Gait: deferred (has chest tube in)
No micrographia.
Assessment and Plan:
I. Recurrent falls, multifocal
II. Mild parkinsonism, likely vascular.
II. 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
III. Encephalopathy (vascular, toxic ?, neurodegenerative)
IV. Severe left ICA stenosis, asymptomatic
V. Recurrent falls. Differential diagnosis includes postural instability, secondary to polyneuropathy, symptomatic hypoglycemia, less likely cardiac arrhythmia or seizures.
-Fall precautions
-Medication administration supervision
-Endocrinology follow up
-C-spine and brain MRI wo emily when chest tube is removed
-Continue Plavix 75 mg daily
-Polyneuropathy blood (can be done as outpatient.
-PT
-OP NCS/EMG of LUE/LE
-OP neuropsychological evaluation
-Please recall neurology service when MRIs are completed
I personally reviewed all radiology and labs along with past medical records pertinent to current medical problems. Total time spent in patient care is 36 minutes.
Thank you for allowing us to participate in the care of this patient. Please do not hesitate to contact us with any questions or concerns.
Objective Data
Vital Signs
Temp Pulse Resp BP Pulse Ox
36.2 C 94 20 133/63 95
11/22/24 07:37 11/22/24 07:37 11/22/24 07:37 11/22/24 07:37 11/22/24 08:44
Lab Results
11/21/24 06:23
11/21/24 06:23
Sodium 135 mmol/L (135-145) 11/21/24 06:23
Potassium 4.3 mmol/L (3.5-5.1) 11/21/24 06:23
BUN 47 mg/dl (9-20) H 11/21/24 06:23
Glucose 34 mg/dl (70-99) L* 11/21/24 06:23
Calcium 9.6 mg/dl (8.4-10.2) 11/21/24 06:23
Vitamin B12 575 pg/ml (239-931) 11/16/24 13:48
Patient Allergies
No Known Allergies Allergy (Verified 11/16/24 13:11)
Vital Signs and Labs
-
Vital Signs and Labs:
Vital Signs
Temp Pulse Resp BP Pulse Ox
36.2 C 94 20 133/63 95
11/22/24 07:37 11/22/24 07:37 11/22/24 07:37 11/22/24 07:37 11/22/24 08:44
Lab Results
11/21/24 06:23
11/21/24 06:23
Sodium 135 mmol/L (135-145) 11/21/24 06:23
Potassium 4.3 mmol/L (3.5-5.1) 11/21/24 06:23
BUN 47 mg/dl (9-20) H 11/21/24 06:23
Glucose 34 mg/dl (70-99) L* 11/21/24 06:23
Calcium 9.6 mg/dl (8.4-10.2) 11/21/24 06:23
Vitamin B12 575 pg/ml (239-931) 11/16/24 13:48
Medications
-
Medications:
Generic Name Dose Route Start Last Admin
Trade Name Freq PRN Reason Stop Dose Admin
Acetaminophen 1,000 mg 11/16/24 20:52 11/16/24 23:49
Acetaminophen 500 Mg Tablet PO 12/14/24 20:51 1,000 mg
DAILYPRN PRN Administration
mild pain
Atorvastatin Calcium 80 mg 11/17/24 18:00 11/21/24 18:20
Atorvastatin (Lipitor) 80 Mg Tablet PO 12/15/24 17:59 80 mg
QPM TRAN Administration
Clopidogrel Bisulfate 75 mg 11/17/24 18:00 11/21/24 18:20
Clopidogrel 75 Mg Tablet PO 12/15/24 17:59 75 mg
DAILY@1800 TRAN Administration
Dapagliflozin 10 mg 11/19/24 18:00 11/19/24 17:08
Dapagliflozin (Farxiga) 10 Mg Tablet PO 12/17/24 17:59 10 mg
QPM TRAN Administration
Dextrose 12.5 grams 11/17/24 12:47 11/21/24 07:50
Dextrose 50% (0.5 Grams/Ml) 50 Ml Syringe IV 12/15/24 12:46 12.5 grams
[id number] PRN Administration
hypoglycemia (BG < 70 mg/dL)
Protocol
Ezetimibe 10 mg 11/17/24 08:00 11/21/24 08:29
Ezetimibe (Zetia) 10 Mg Tablet PO 12/15/24 07:59 10 mg
DAILY TRAN Administration
Enalapril Maleate 5 mg 11/21/24 20:00 11/22/24 08:33
Enalapril 5 Mg Tablet PO 12/19/24 19:59 5 mg
BID TRAN Administration
Folic Acid 1 mg 11/17/24 08:00 11/22/24 08:34
Folic Acid 1 Mg Tablet PO 12/15/24 07:59 1 mg
DAILY TRAN Administration
Glucagon 1 mg 11/16/24 20:52
Glucagon 1 Mg Vial IM 12/14/24 20:51
PRN PRN
hypoglycemia
Protocol
Hydralazine HCl 5 mg 11/17/24 12:27 11/20/24 03:58
Hydralazine 20 Mg/Ml Vial IV 12/15/24 12:26 5 mg
Q6HPRN PRN Administration
SBP>160 mmHg
Folic Acid 1 mg/ Sodium 50.2 mls @ 200.8 mls/hr 11/16/24 20:52
Chloride IV 12/14/24 20:51
DAILYPRN PRN
if NPO
Insulin Aspart 0 units 11/20/24 16:30 11/22/24 08:36
Insulin Aspart Low Resistance 300 Units/3 Ml Pen.Injctr SC 12/18/24 16:29 1 units
AC TRAN Administration
Protocol
Insulin Human NPH 10 units 11/21/24 18:00 11/21/24 19:12
Insulin Nph (100 Units/Ml) 3 Ml Kwikpen SC 12/15/24 17:59 10 units
QPM TRAN Administration
Lorazepam 0.5 mg 11/22/24 10:21
Lorazepam 2 Mg/Ml Vial IV 12/20/24 10:20
Q6HPRN PRN
anxiety/agitation
Pantoprazole Sodium 40 mg 11/21/24 20:00 11/22/24 08:33
Pantoprazole 40 Mg Delayed Release Tablet PO 12/19/24 19:59 40 mg
BID TRAN Administration
Sodium Chloride 0 flush 11/16/24 21:00
Sodium Chloride 0.9% (Flush) Syringe IV 12/14/24 20:59
PER PROTOCOL TRAN
Sodium Chloride 0.25 ml 11/22/24 10:23
Nss (Pf) 10 Ml Vial For Ativan 0.5 Mg Dose IV 12/20/24 10:22
Q6HPRN PRN
IV LORAZEPAM DILUTION
Tamsulosin HCl 0.4 mg 11/17/24 08:00 11/22/24 08:33
Tamsulosin 0.4 Mg Capsule PO 12/15/24 07:59 0.4 mg
DAILY TRAN Administration
Thiamine HCl 100 mg 11/19/24 20:00 11/22/24 08:33
Thiamine 100 Mg Tablet PO 12/17/24 19:59 100 mg
BID TRAN Administration
Home Medications
-
Home Medications
enalapril maleate 20 mg tablet 20 mg PO BID Blood pressure 01/30/15
clopidogrel 75 mg tablet 75 mg PO DAILY Blood Clot Prevention/Tx 05/26/23
atorvastatin 80 mg tablet 80 mg PO QPM High Cholesterol 08/19/23
dapagliflozin propanediol 10 mg tablet (Farxiga) 10 mg PO QPM Diabetes 01/21/24
ezetimibe 10 mg tablet 10 mg PO DAILY High Cholesterol 01/21/24
insulin NPH isoph U-100 human 100 unit/mL subcutaneous suspension 16 unit SC QPM Diabetes 01/21/24
insulin NPH isoph U-100 human 100 unit/mL subcutaneous suspension 26 unit SC DAILY Diabetes 01/21/24
insulin lispro 100 unit/mL subcutaneous solution (Humalog U-100 Insulin) 1 - 3 unit SC DAILYPRN PRN diabetes 01/21/24
acetaminophen 500 mg tablet 1,000 mg PO DAILYPRN PRN mild pain 07/06/24
tamsulosin 0.4 mg capsule 0.4 mg PO DAILY Urinary Issue 11/16/24
--- NOTE | 2024-11-22 10:22 | W.PN.HOSP.TC ---
Today's Communication/Plan
-
f/w pulmonary recommendations
Assessment / Plan
Assessment / Plan
Physical Exam
General: \\ No Apparent Distress
HEENT: Normocephalic, Moist mucous membranes
Respiratory: Decreased breath sounds bilaterally, no wheezes, right sided chest tube
Cardiac: S1/S2 and Regular Rhythm
GI: Soft, Non Tender, Non Distended and Normal Bowel Sounds
Musculoskeletal: No Cyanosis and No Edema
Skin: Warm. Dry.
Neuro: Alert. Awake. Nonfocal/grossly intact bilaterally.
Psych: calm
Assessment/Plan
74-year-old male presented with dizziness and weakness and falls over the several weeks (prior to presentation) associated with dizziness.
# Fall resulting in moderate right acute traumatic pneumothorax in the setting of underlying possibly emphysema
-Chest tube placed
- Right-sided pneumothorax has returned while patient is on Water seal -- so resume suction as per pulmonary
- Chest x ray 11/21 showed: No pneumothorax seen on the current chest x-ray.
F/w pulmonary recommendations.
# Dizziness/weakness and falls/unsteadiness
# Recent Episodes of Possible Syncope
-Suspected multifactorial with possible hypoglycemia (has episodes of low blood sugars at home), possible hypotension at home, alcohol use, possible Parkinson's Disease as per
neurology
-Alcohol level negative
-TSH normal at 1.54, and Vitamin B12 normal at 575
-Neurology consulted as per vascular surgery's request to consult neurology; neurology communicated via [place] [employer] that this can be managed as an
outpatient, and that patient denies weakness or dizziness, just complaining of falls. Exam with a little bit of Parkinson�s; the right parietooccipital infarction
on head ct is in the MCA territory but it looks old so therefore not an inpatient problem.
-Neurology mentioned that patient's falls, handwriting changes, and possibly the dizziness is which is mild, due to Parkinson's disease, discussed starting Sinemet, they want to think about this
-CT Head showed small area of infarct right parieto-occipital junction, MCA territory, could be the related to the Right carotid stenosis. Stable chronic lacunar infarcts in bilateral basal ganglia, left thalamus, right cerebellum.
-CTA head/neck showed Left Carotid Bulb 80% stenosis, right carotid bulb 50% stenosis
-Brain MRI is not needed as per my communication with neurology is asking about brain MRI, re-consulted neurology and Dr Dotson ordered MRI
-Patient should stay on Plavix 75 and Lipitor 80, unless the Plavix needs to be held for GI bleeding
-Echo without any change compared to echo about 1 year ago
# Left carotid artery stenosis -- asymptomatic
-CTA showed bilateral carotid bifurcation calcified atherosclerosis contribute to 80% stenosis left carotid bulb and 50% of the right carotid bulb
-Vascular ultrasound results noted
-Vascular surgery consulted -- vascular surgery requested hospitalist consult neurology, therefore neurology consult placed
-Can benefit from outpatient carotid interventions bilaterally to lower patient's stroke risk
-Carotid disease not causing patient's dizziness, as per neurology
#Hyperkalemia - RESOLVED
#Upper GI Bleed/Copious Coffee Ground Emesis on 11/17/24
-Protonix 40 mg IV BID started
-PRN IV antiemetics
-GI consulted for evaluation of EGD
-Suspected component of esophagitis causing patient's symptoms versus gastritis/duodenitis versus less likely other etiologies
-Per GI, deferring any plans for an EGD given pneumothorax
-Consider EGD as an outpatient along with a colonoscopy at that time as he is overdue in terms of surveillance
-AVOID NSAIDs, limit alcohol intake
# Type 2 Diabetes Mellitus
# Hyperglycemia, still uncontrolled. No hypoglycemia over night
Labile DM
Patient reports that his BS are better managed at home, but he is not eating well, does not like hospital diabetic food.
-Diabetes METHODS AND PROCEDURES ANALYST consulted, appreciate evaluation and recommendations
Resume Farxiga also
# Pseudohyponatremia secondary to hyperglycemia
-Continue to monitor
# Minimally displaced 10th rib fracture
-From prior chest x-ray on 10/31
# Hyponatremia, mild
#Active smoker
-Nicotine patch
#Right pontine CVA
-Continue Plavix, statin
#Alcohol use disorder
-Thiamine and folate
No signs of withdrawal but definitely upset and bored from being in hospital, offered Lorazem if anxiety but declined, will order it PRN
#Essential hypertension
- Resumed low dose enalapril
#GERD/Peptic ulcer disease
#Urinary retention secondary to BPH
-Continue tamsulosin
-Bladder scans protocol/monitor for urinary retention
#Hypercholesterolemia
-Continue statin, Zetia
Code Status: Full code
DVT Prophylaxis: SCDs. No chemical DVT prophylaxis given coffee ground emesis earlier this admission.
Diet: Diabetic diet
Total time spent to see the patient, examine the patient, review data and lab results, discuss treatment plan with patient and nursing staff around 55 minutes
Anticipated Discharge: > 48 hours
Subjective/Interval History
-
Date of Service: November 22, 2024
He complains of being in hospital and wants to go home
He feels bored most of the time
He feels his respiratory symptoms are mild
Objective Data
-
Vital Signs:
Vital Signs
Temp Pulse Resp BP Pulse Ox
97.1 F 94 20 133/63 95
11/22/24 07:37 11/22/24 07:37 11/22/24 07:37 11/22/24 07:37 11/22/24 08:44
I&O
11/21/24 11/22/24 11/23/24
06:59 06:59 06:59
Intake Total 720 / 720 1080 / 1080 960 / 960
Output Total 1954 200 / 200 250 / 250
Balance -1235 / -1235 880 / 880 710 / 710
--- NOTE | 2024-11-22 11:25 | W.PN.PUL3 ---
Today's Communication / Plan
-
Willing to stay to evaluate chest tube, we discussed at length
No air leak noted today
Waterseal trial today, repeat CXR in 2 hours post trial
If doing well, can proceed to clamping
He was agreeable to plan
Assessment
-
74-year-old man with past medical history significant for alcohol use disorder, type 2 diabetes, hypertension, GERD, peptic ulcer disease, right pontine stroke, COPD, cardiomyopathy, urinary retention, BPH, presented with dizziness and weakness and
fall over the past several weeks associated with the dizziness as well. Patient has unsteady gait. Apparently has had syncopal episodes a few times.
[place] prior to admission with abrasion on the cheek. No respiratory symptoms. Diagnosed with pneumothorax on the right post fall. Chest tube was placed in the emergency room.
Right pneumothorax post fall/trauma in the setting of underlying possibly emphysema
Status post chest tube placement 11/16/2024
Conditions present prior admission:
Alcohol abuse
Hypertension
Type 2 diabetes
History of rib fracture post falling
COPD with minimal emphysema
Active smoker
Hypertension
GERD
History of peptic ulcer disease
Urinary retention due to BPH
Plan
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
Alcohol abuse disorder
Smoker with history of COPD. Not on inhalers as he has refused. Patient states that he does not know whether he has COPD or not. He denies shortness of breath with ambulation.
Denies chronic coughing or phlegm production.
Chest tube with occasional air leak; no leak noted today
Chest x-ray 11/17/2024: On suction in the afternoon showed no recurrent pneumothorax
Chest tube placed to waterseal 11/17/2024 in the afternoon until 11/18/2024.
Chest x-ray on AM of 11/18 showed recurrent pneumothorax-looks like chest tube was retracted with the proximal end hole located outside the pleural cavity. Likely reason for recurrent pneumothorax.
Chest tube was exchanged by IR on 11/18/2024 and upsized from a 14 Fr to a 16 Fr chest tube, and repeat CXR today shows no pneumothorax
He is likely to remain on suction, can consider waterseal once air leak stops
Waterseal today, plan to repeat CXR in 2 hours
Patient asymptomatic, on room air. No subcutaneous air, he feels comfortable
Chest tube placed to waterseal on 11/19/2024, however CXR this morning on 11/20 shows recurrent right-sided pneumothorax. Chest tube placed back onto suction at -[id number] and repeat CXR this afternoon shows almost fully resolved right-sided pneumothorax.
Dr. Lynch discussed the recurrence of his right side pneumothorax today with IR on 11/20/2024 and they believe that the patient needs additional time on suction for his lung to heal. No indication currently for upsizing his chest tube. Continue
to monitor with serial imaging.
Patient would benefit from outpatient pulmonary evaluation/follow-up in the future. Last followed with Dr. Lynch in the office - last visit 06/28/2024
Smoking cessation recommended-he smokes about 10 cigarettes/day.
Will follow
Diagnostic Data
CXR 11/21/24- No pneumothorax seen on the current chest x-ray.
CT Chest 12/15/23- Opacification with some tree-in-bud opacities in the lower lobe of the left lung has virtually completely resolved in the interval since prior study. There is no new focal parenchymal opacification, pneumothorax, pleural effusion
or pericardial effusion. Evaluation of the gina are markedly limited without intravenous contrast. There is no significant mediastinal or axillary lymphadenopathy. Coronary artery calcifications are noted.
ECHO 11/18/24- Normal left ventricular size with low normal systolic function. LVEF 50-55%. Akinesis of apical septum and apical inferior wall. Normal RV size and function. Mild aortic stenosis (21/10 mmHg). No change compared to echocardiogram on
10/29/2023.
Total time spent today was 50 minutes for this encounter. Time includes reviewing laboratory test/imaging results, reviewing pertinent medical records, obtaining and reviewing medical history, performing an appropriate exam, ordering medications,
tests and procedures. Time also includes documentation of this encounter, coordinating patient care and communicating with other healthcare professionals. Total time does not include separately billed tests performed on this date of service.
Subjective Data
-
Date of Service:
Date of Service: November 22, 2024
Chief Complaint: Pulmonary Follow Up (Pneumothorax-trauma)
Subjective:
No new complaints, stable on RA
at bedside
Objective Data
Data Reviewed
Vital Signs / I&O / Oxygen:
Vital Signs
Temp Pulse Resp BP Pulse Ox
97.1 F 94 20 133/63 95
11/22/24 07:37 11/22/24 07:37 11/22/24 07:37 11/22/24 07:37 11/22/24 08:44
Intake and Output
11/21/24 11/22/24 11/23/24
06:59 06:59 06:59
Intake Total 720 / 720 1080 / 1080 960 / 960
Output Total 1955 / 1955 200 / 200 350 / 350
Balance -1235 / -1235 880 / 880 610 / 610
SaO2 95
Physical Exam
General: Respiratory Distress (negative), Comfortable, Chills (negative) and Sweats (negative)
HEENT: Normocephalic, Anicteric and Moist Mucous Membranes
Cardiovascular: S1-S2, Regular Rhythm, Rub (negative) and Peripheral Edema (negative)
Respiratory: Wheeze (negative), Crackles (negative), Rhonchi (negative), Non-Labored Respirations, Stridor (negative), Chest Tube (Right-sided chest tube in place on waterseal, airleak seen only during coughing) and Other (Diminished breath sounds
bilaterally)
GI: Soft, Non Distended, Non Tender and Normal Bowel Sounds
Neurology: Awake, Alert, Oriented and Tremors (negative)
Skin: Warm, Dry, Cyanosis (negative) and Jaundice (negative)
Labs/Micro/Reports
Lab Data
11/21/24 06:23
11/21/24 06:23
Microbiology
11/19/24 06:05 Urine Urine Culture - Final
[2024-11-22] MEDS: ZETIA 10 MG PO (11:44)
[2024-11-22 11:47] LABS: Glucose - Point of Care 289 mg/dl (70-99)
[2024-11-22] MEDS: NOVOLOG FLEXPEN-LOW RESISTANCE 3 UNITS SC (11:58)
[2024-11-22 14:56] VITALS: BP 126/64
[2024-11-22] MEDS: LIPITOR 80 MG PO (17:18)
[2024-11-22] MEDS: FARXIGA 10 MG PO (17:19)
[2024-11-22] MEDS: PLAVIX 75 MG PO (17:19)
[2024-11-22 17:34] LABS: Glucose - Point of Care 519 mg/dl (70-99)
[2024-11-22 17:34] LABS: Glucose - Point of Care 547 mg/dl (70-99)
[2024-11-22] MEDS: HUMULIN N KWIKPEN 10 UNITS SC (18:20)
[2024-11-22 18:26] LABS: Glucose 572 mg/dl (70-99)
[2024-11-22] MEDS: NOVOLOG FLEXPEN-LOW RESISTANCE SC (18:36)
[2024-11-22] MEDS: NOVOLOG FLEXPEN 3 UNITS SC (18:36)
[2024-11-22] MEDS: NOVOLOG FLEXPEN 10 UNITS SC ×2 (18:38→22:21)
[2024-11-22 20:50] LABS: Glucose - Point of Care 481 mg/dl (70-99)
[2024-11-22 21:32] LABS: Glucose 506 mg/dl (70-99)
[2024-11-22 23:00] VITALS: BP 111/56
[2024-11-23 00:40] LABS: Glucose - Point of Care 308 mg/dl (70-99)
--- NOTE | 2024-11-23 00:40 | PTCARENOTE ---
Patient's POC glucose at 2044 reading as RR HI. Stat venous glucose ordered and was 506. DORY Howell notified. Order for 10 units of insulin placed and administered. Repeat POC glucose 308. Care ongoing.
[2024-11-23 03:13] LABS: Glucose - Point of Care 269 mg/dl (70-99)
--- NOTE | 2024-11-23 07:18 | PN.DE.MGMTRT ---
Insulin Management
- -
11/23/2024: Diabetes Management follow up
Patient admitted 11/16 with dizziness, injury to his face, falls, resulting in a pneumothorax. PMH: Cardiomyopathy, HTN, HLD, h/o CVA 2014, COPD, GERD w/gastric ulcers, daily alcohol use, tobacco use, colon polyps, urinary retention. Chest tube
placement in IR . He was noted for hyperglycemia on admission with a glucose level of 465 and was administered 12 units of NovoLog that resulted into hypoglycemia while NPO.
Pt awake, alert, oriented, sitting up in bed, offers no complaints, able to discuss diabetes care plan. at bedside. Patient states he has type 1 diabetes, has always taken insulin. Will continue to hold Farxiga. Patient more receptive to
change of insulin to 70/30, reducing the number of shots to 2 and the number of insulins to just one pen. Explained to patient he would get the fast acting component to cover breakfast and dinner and the long acting component, similar to NPH, to
cover the afternoon and overnight.
11/23 Fasting glucose 269. Patient did receive AM NPH 20 units with breakfast and 3 units novolog AC and low corrective AC. Will stop NPH and start Novolog 70/30 14 units with dinner, first dose tonight and 20 units in AM. Will continue low
corrective insulin AC.
Will follow and make insulin adjustments if necessary.
Discussed with nurse
Diabetes History
- -
Type of Diabetes: 1
Pre-Admission Diabetes Regimen
Lab Results
Hemoglobin A1c 9.8 % (4.0-5.6) H 11/17/24 06:38
Insulin Pump Settings
IP Diabetes Regimen
11/22/24 11/22/24 11/22/24
07:50 11:46 17:32
Glucose
POC Glucose 179 H 289 H 519 H*
11/22/24 11/22/24 11/22/24
17:34 17:48 20:45
Glucose 572 H*
POC Glucose 547 H* 481 H*
11/22/24 11/23/24 11/23/24
20:58 00:39 03:12
Glucose 506 H*
POC Glucose 308 H 269 H
Meal type: Lunch
Meal type: Breakfast
Amount consumed: 100%
Amount consumed: 100%
Patient Education
[2024-11-23 07:43] LABS: Glucose - Point of Care 238 mg/dl (70-99)
[2024-11-23 07:48] VITALS: BP 117/50
[2024-11-23] MEDS: FLOMAX 0.4 MG PO (09:16)
[2024-11-23] MEDS: PROTONIX 40 MG PO ×2 (09:16→20:50)
[2024-11-23] MEDS: VASOTEC 5 MG PO ×2 (09:17→20:51)
[2024-11-23] MEDS: FOLVITE 1 MG PO (09:18)
[2024-11-23] MEDS: ZETIA 10 MG PO (09:18)
[2024-11-23] MEDS: HUMULIN N KWIKPEN 20 UNITS SC (09:19)
[2024-11-23] MEDS: NOVOLOG FLEXPEN 3 UNITS SC ×2 (09:22→13:07)
[2024-11-23] MEDS: NOVOLOG FLEXPEN-LOW RESISTANCE 2 UNITS SC (09:23)
--- NOTE | 2024-11-23 11:06 | W.PN.HOSP.TC ---
Today's Communication/Plan
-
f/w pulmonary recommendations
Hyperglycemia noted, appreciate DM BEHAVIORAL HEALTH THERAPIST input
Assessment / Plan
Assessment / Plan
Physical Exam
General: \\ No Apparent Distress
HEENT: Normocephalic, Moist mucous membranes
Respiratory: Decreased breath sounds bilaterally, no wheezes, right sided chest tube
Cardiac: S1/S2 and Regular Rhythm
GI: Soft, Non Tender, Non Distended and Normal Bowel Sounds
Musculoskeletal: No Cyanosis and No Edema
Skin: Warm. Dry.
Neuro: Alert. Awake. Nonfocal/grossly intact bilaterally.
Psych: calm
Assessment/Plan
74-year-old male presented with dizziness and weakness and falls over the several weeks (prior to presentation) associated with dizziness.
# Fall resulting in moderate right acute traumatic pneumothorax in the setting of underlying possibly emphysema
-Chest tube placed
- Right-sided pneumothorax has returned while patient is on Water seal -- so resume suction as per pulmonary
- Chest x ray 11/21 showed: No pneumothorax seen on the current chest x-ray.
F/w pulmonary recommendations.
# Dizziness/weakness and falls/unsteadiness
# Recent Episodes of Possible Syncope
-Suspected multifactorial with possible hypoglycemia (has episodes of low blood sugars at home), possible hypotension at home, alcohol use, possible Parkinson's Disease as per
neurology
-Alcohol level negative
-TSH normal at 1.54, and Vitamin B12 normal at 575
-Neurology consulted as per vascular surgery's request to consult neurology; neurology communicated via [place] Text that this can be managed as an
outpatient, and that patient denies weakness or dizziness, just complaining of falls. Exam with a little bit of Parkinson�s; the right parietooccipital infarction
on head ct is in the MCA territory but it looks old so therefore not an inpatient problem.
-Neurology mentioned that patient's falls, handwriting changes, and possibly the dizziness is which is mild, due to Parkinson's disease, discussed starting Sinemet, they want to think about this
-CT Head showed small area of infarct right parieto-occipital junction, MCA territory, could be the related to the Right carotid stenosis. Stable chronic lacunar infarcts in bilateral basal ganglia, left thalamus, right cerebellum.
-CTA head/neck showed Left Carotid Bulb 80% stenosis, right carotid bulb 50% stenosis
-Brain MRI is not needed as per my communication with neurology is asking about brain MRI, re-consulted neurology and Dr Dotson ordered MRI
-Patient should stay on Plavix 75 and Lipitor 80, unless the Plavix needs to be held for GI bleeding
-Echo without any change compared to echo about 1 year ago
# Left carotid artery stenosis -- asymptomatic
-CTA showed bilateral carotid bifurcation calcified atherosclerosis contribute to 80% stenosis left carotid bulb and 50% of the right carotid bulb
-Vascular ultrasound results noted
-Vascular surgery consulted -- vascular surgery requested hospitalist consult neurology, therefore neurology consult placed
-Can benefit from outpatient carotid interventions bilaterally to lower patient's stroke risk
-Carotid disease not causing patient's dizziness, as per neurology
#Hyperkalemia - RESOLVED
#Upper GI Bleed/Copious Coffee Ground Emesis on 11/17/24
-Protonix 40 mg IV BID started
-PRN IV antiemetics
-GI consulted for evaluation of EGD
-Suspected component of esophagitis causing patient's symptoms versus gastritis/duodenitis versus less likely other etiologies
-Per GI, deferring any plans for an EGD given pneumothorax
-Consider EGD as an outpatient along with a colonoscopy at that time as he is overdue in terms of surveillance
-AVOID NSAIDs, limit alcohol intake
# Type 2 Diabetes Mellitus
# Hyperglycemia, still uncontrolled. No hypoglycemia over night
Labile DM
Patient reports that his BS are better managed at home, but he is not eating well, does not like hospital diabetic food.
-Diabetes BEHAVIORAL HEALTH THERAPIST consulted, appreciate evaluation and recommendations
Resume Farxiga also
# Pseudohyponatremia secondary to hyperglycemia
-Continue to monitor
# Minimally displaced 10th rib fracture
-From prior chest x-ray on 10/31
# Hyponatremia, mild
#Active smoker
-Nicotine patch
#Right pontine CVA
-Continue Plavix, statin
#Alcohol use disorder
-Thiamine and folate
No signs of withdrawal but definitely upset and bored from being in hospital, offered Lorazem if anxiety but declined, will order it PRN
#Essential hypertension
- Resumed low dose enalapril
#GERD/Peptic ulcer disease
#Urinary retention secondary to BPH
-Continue tamsulosin
-Bladder scans protocol/monitor for urinary retention
#Hypercholesterolemia
-Continue statin, Zetia
Code Status: Full code
DVT Prophylaxis: SCDs. No chemical DVT prophylaxis given coffee ground emesis earlier this admission.
Diet: Diabetic diet
Total time spent to see the patient, examine the patient, review data and lab results, discuss treatment plan with patient and nursing staff around 55 minutes
Anticipated Discharge: Within 24 hours
Subjective/Interval History
-
Date of Service: November 23, 2024
No sob
No fevers
Objective Data
-
Vital Signs:
Vital Signs
Temp Pulse Resp BP Pulse Ox
97.8 F 69 19 117/50 95
11/23/24 07:48 11/23/24 09:17 11/23/24 07:48 11/23/24 09:17 11/23/24 07:48
I&O
11/22/24 11/23/24 11/24/24
06:59 06:59 06:59
Intake Total 1080 / 1080 1680 / 1680
Output Total 200 / 200 750 / 750 2 / 2
Balance 880 / 880 930 / 930 -2 / -2
[2024-11-23] MEDS: VITAMIN B1 PO (12:00)
[2024-11-23 12:06] LABS: Glucose - Point of Care 258 mg/dl (70-99)
[2024-11-23] MEDS: NOVOLOG FLEXPEN-LOW RESISTANCE 3 UNITS SC (12:58)
--- NOTE | 2024-11-23 13:01 | W.PN.PUL3 ---
Today's Communication / Plan
-
Waterseal since 11/22/24, CXR stable, no air leak today
Will try clamp trial today, repeat CXR in 2 hours
If remains stable next 24 hours, can discontinue
Reviewed plan with patient though he has expressed frustration with prolonged need for chest tube
Assessment
-
74-year-old man with past medical history significant for alcohol use disorder, type 2 diabetes, hypertension, GERD, peptic ulcer disease, right pontine stroke, COPD, cardiomyopathy, urinary retention, BPH, presented with dizziness and weakness and
fall over the past several weeks associated with the dizziness as well. Patient has unsteady gait. Apparently has had syncopal episodes a few times.
[place] prior to admission with abrasion on the cheek. No respiratory symptoms. Diagnosed with pneumothorax on the right post fall. Chest tube was placed in the emergency room.
Right pneumothorax post fall/trauma in the setting of underlying possibly emphysema
Status post chest tube placement 11/16/2024
Conditions present prior admission:
Alcohol abuse
Hypertension
Type 2 diabetes
History of rib fracture post falling
COPD with minimal emphysema
Active smoker
Hypertension
GERD
History of peptic ulcer disease
Urinary retention due to BPH
Plan
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
Alcohol abuse disorder
Smoker with history of COPD. Not on inhalers as he has refused. Patient states that he does not know whether he has COPD or not. He denies shortness of breath with ambulation.
Denies chronic coughing or phlegm production.
Traumatic PTx
Chest tube with occasional air leak; no leak noted thus far
Chest x-ray 11/17/2024: On suction in the afternoon showed no recurrent pneumothorax
Chest tube placed to waterseal 11/17/2024 in the afternoon until 11/18/2024.
Chest x-ray on AM of 11/18 showed recurrent pneumothorax-looks like chest tube was retracted with the proximal end hole located outside the pleural cavity. Likely reason for recurrent pneumothorax.
Chest tube was exchanged by IR on 11/18/2024 and upsized from a 14 Fr to a 16 Fr chest tube, and repeat CXR today shows no pneumothorax
Chest tube placed to waterseal on 11/19/2024, however CXR this morning on 11/20 shows recurrent right-sided pneumothorax.
Chest tube placed back onto suction at -[id number] and repeat CXR this afternoon shows almost fully resolved right-sided pneumothorax.
Waterseal 11/22/24, plan to repeat CXR in 2 hours--stable, continues without airleak
We will try clamp trial today
Patient asymptomatic, on room air. No subcutaneous air, he feels comfortable
Patient would benefit from outpatient pulmonary evaluation/follow-up in the future. Last followed with Dr. Lynch in the office - last visit 06/28/2024
Smoking cessation recommended-he smokes about 10 cigarettes/day.
Will follow
Diagnostic Data
CXR 11/21/24- No pneumothorax seen on the current chest x-ray.
CT Chest 12/15/23- Opacification with some tree-in-bud opacities in the lower lobe of the left lung has virtually completely resolved in the interval since prior study. There is no new focal parenchymal opacification, pneumothorax, pleural effusion
or pericardial effusion. Evaluation of the gina are markedly limited without intravenous contrast. There is no significant mediastinal or axillary lymphadenopathy. Coronary artery calcifications are noted.
ECHO 11/18/24- Normal left ventricular size with low normal systolic function. LVEF 50-55%. Akinesis of apical septum and apical inferior wall. Normal RV size and function. Mild aortic stenosis (21/10 mmHg). No change compared to echocardiogram on
10/29/2023.
Total time spent today was 50 minutes for this encounter. Time includes reviewing laboratory test/imaging results, reviewing pertinent medical records, obtaining and reviewing medical history, performing an appropriate exam, ordering medications,
tests and procedures. Time also includes documentation of this encounter, coordinating patient care and communicating with other healthcare professionals. Total time does not include separately billed tests performed on this date of service.
Subjective Data
-
Date of Service:
Date of Service: November 23, 2024
Chief Complaint: Pulmonary Follow Up (Pneumothorax-trauma)
Subjective:
No new complaints, tolerated water seal
No air leak today, stable on RA
Objective Data
Data Reviewed
Vital Signs / I&O / Oxygen:
Vital Signs
Temp Pulse Resp BP Pulse Ox
97.8 F 69 19 117/50 95
11/23/24 07:48 11/23/24 09:17 11/23/24 07:48 11/23/24 09:17 11/23/24 09:30
Intake and Output
11/22/24 11/23/24 11/24/24
06:59 06:59 06:59
Intake Total 1080 / 1080 1680 / 1680
Output Total 200 / 200 750 / 750 2 / 2
Balance 880 / 880 930 / 930 -2 / -2
SaO2 95
Physical Exam
General: Respiratory Distress (negative), Comfortable, Chills (negative) and Sweats (negative)
HEENT: Normocephalic, Anicteric and Moist Mucous Membranes
Cardiovascular: S1-S2, Regular Rhythm, Rub (negative) and Peripheral Edema (negative)
Respiratory: Wheeze (negative), Crackles (negative), Rhonchi (negative), Non-Labored Respirations, Stridor (negative), Chest Tube (Right-sided chest tube in place on waterseal, no airleak) and Other (Diminished breath sounds bilaterally, crepitus
around insertion site)
GI: Soft, Non Distended, Non Tender and Normal Bowel Sounds
Neurology: Awake, Alert, Oriented and Tremors (negative)
Skin: Warm, Dry, Cyanosis (negative) and Jaundice (negative)
Labs/Micro/Reports
Lab Data
11/21/24 06:23
03/04/25 20:58
Microbiology
11/19/24 06:05 Urine Urine Culture - Final
[2024-11-23 15:11] VITALS: BP 128/65
--- NOTE | 2024-11-23 15:40 | CM ---
Patient functionally at baseline, still requiring acute care.
Plan: Case management will continue to follow and assist with discharge planning. Home when stable.
[2024-11-23 17:59] LABS: Glucose - Point of Care 425 mg/dl (70-99)
[2024-11-23] MEDS: LIPITOR 80 MG PO (18:30)
[2024-11-23] MEDS: PLAVIX 75 MG PO (18:31)
[2024-11-23] MEDS: FARXIGA 10 MG PO (18:31)
[2024-11-23 18:42] LABS: Glucose 466 mg/dl (70-99)
[2024-11-23] MEDS: NOVOLOG FLEXPEN-LOW RESISTANCE 6 UNITS SC (18:52)
[2024-11-23] MEDS: NOVOLOG MIX 70/30 FLEXPEN 20 UNITS SC (19:30)
[2024-11-23] MEDS: VITAMIN B1 100 MG PO (20:50)
[2024-11-23 21:16] LABS: Glucose - Point of Care 500 mg/dl (70-99)
[2024-11-23 22:08] LABS: Glucose 429 mg/dl (70-99)
[2024-11-23] MEDS: NOVOLOG FLEXPEN 10 UNITS SC (22:27)
[2024-11-23 23:00] VITALS: BP 114/55
[2024-11-24] VITALS (7 sets, daily range): BP systolic 80–152; BP diastolic 40–69; PULSE 65–98
--- NOTE | 2024-11-24 00:30 | PTCARENOTE ---
Patient bedside glucose at 2113 500. Stat venous glucose ordered. Result of 429. DORY Howell notified. 10 units of insulin ordered and administered. Bedside glucose at 0030 was 372. Care ongoing.
[2024-11-24 00:50] LABS: Glucose - Point of Care 372 mg/dl (70-99)
[2024-11-24 03:27] LABS: Glucose - Point of Care 356 mg/dl (70-99)
[2024-11-24 07:00] LABS: Glucose - Point of Care 474 mg/dl (70-99)
[2024-11-24] MEDS: FLOMAX PO (07:11)
[2024-11-24] MEDS: VASOTEC PO ×2 (07:11→20:23)
[2024-11-24] MEDS: NSS 500 IV (07:15)
--- NOTE | 2024-11-24 07:16 | W.PN.UPDATE ---
Update Note
Progress Note Update
Rapid response called at ~7 am. Patient with syncopal episode with no loss of consciousness. Vital signs: BP 80/40, hr 68, resp 16, 96% on room air. Accucheck RR hi, ordered venous glucose stat.
Patient Ox3, no complaints of pain, nausea. Does admit to dizziness. Ordered [address] Mcdonald notified and at bedside.
[2024-11-24 07:28] LABS: % Basophils 0.9 % (0-2); % Eosinophils 7.6 % (0-6); % Immature Granulocytes 0.4 % (0-0.5); % Lymphocytes 26.9 % (20.5-51.1); % Monocytes 7.8 % (1.7-9.3); % Neutrophils 56.4 % (42.2-75.2); Absolute Basophils 0.1 10^3/uL (0-0.2); Absolute Eosinophils 0.6 10^3/uL (0-0.7); Absolute Lymphocytes 2.1 10^3/uL (1.2-3.4); Absolute Monocytes 0.6 10^3/uL (0.1-0.6); Absolute Neutrophils 4.4 10^3/uL (1.4-6.5); Hematocrit 41.7 % (39.0-52.0); Hemoglobin 14.4 g/dL (13.0-18.0); Mean Corp Hgb Conc. 34.5 g/dL (33.0-37.0); Mean Corpuscular Hgb 29.4 pg (27.0-31.0); Mean Corpuscular Volume 85.3 fL (80.0-94.0); Mean Platelet Volume 10.3 fL (7.4-10.4); Nucleated Red Blood Cells % 0 % (-); Platelet Count 243 10^3/uL (130-400); Red Blood Cell Count 4.89 10^6/uL (4.70-6.10); Red Cell Dist. Width 15.3 % (11.5-14.5); White Blood Cell Count 7.8 10^3/uL (4.8-10.8)
--- NOTE | 2024-11-24 07:45 | PN.DE.MGMTRT ---
Insulin Management
- -
11/24/2024: Diabetes Management follow up
Patient admitted 11/16 with dizziness, injury to his face, falls, resulting in a pneumothorax. PMH: Cardiomyopathy, HTN, HLD, h/o CVA 2014, COPD, GERD w/gastric ulcers, daily alcohol use, tobacco use, colon polyps, urinary retention. Chest tube
placement in IR . He was noted for hyperglycemia on admission with a glucose level of 465 and was administered 12 units of NovoLog that resulted into hypoglycemia while NPO.
Pt off the unit during my visit, discussed new insulin and pen use with . states she is concerned patient does not take correct dose sometimes causing his to have severe hypoglycemia. Patient more receptive to change of insulin to 70/30,
reducing the number of shots to 2 and the number of insulins to just one pen. Explained to patient he would get the fast acting component to cover breakfast and dinner and the long acting component, similar to NPH, to cover the afternoon and
overnight.
3/ Fasting glucose 269. Patient did receive AM NPH 20 units with breakfast and 3 units novolog AC and low corrective AC. Will stop NPH and start Novolog 70/30 20 units BID with continue low corrective insulin AC. Pre dinner glucose again
trended up to 466 (patient received all insulin doses) requiring additional corrective insulin, 70/30 20 units given @ 7pm, glucose 500, additional 10 units novolog administered. HS glucose 372.
11/24 Fasting glucose 474. 70/30 novolog increased to 25 units BID with high corrective. Stopped Farxiga.
Will have diabetes nurse educate and patient further on use of pen to decrease dose error.
Will follow and make insulin adjustments if necessary.
Discussed with nurse
Patient states he has type 1 diabetes, has always taken insulin. Will continue to hold Farxiga.
Diabetes History
- -
Type of Diabetes: 2 requiring insulin
Pre-Admission Diabetes Regimen
Lab Results
Hemoglobin A1c 9.8 % (4.0-5.6) H 11/17/24 06:38
Insulin Pump Settings
IP Diabetes Regimen
11/23/24 11/23/24 11/23/24
12:05 17:57 18:20
Glucose 466 H*
POC Glucose 258 H 425 H
11/23/24 11/23/24 11/24/24
21:13 21:47 00:48
Glucose 429 H
POC Glucose 500 H* 372 H
11/24/24 11/24/24
03:26 06:57
Glucose
POC Glucose 356 H 474 H*
Meal type: Lunch
Amount consumed: 100%
Patient Education
[2024-11-24] MEDS: NSS 1000 IV ×2 (07:47→18:04)
[2024-11-24 07:48] LABS: ALT (SGPT) 24 U/L (0-50); AST (SGOT) 29 U/L (17-59); Albumin 3.7 g/dl (3.5-5.0); Alkaline Phosphatase 104 U/L (38-126); Blood Urea Nitrogen 55 mg/dl (9-20); Calcium 9.4 mg/dl (8.4-10.2); Carbon Dioxide 16 mmol/L (22-30); Chloride 98 mmol/L (98-107); Estimated Creatinine Clearance 38 ml/min; Glucose 468 mg/dl (70-99); Potassium 5.4 mmol/L (3.5-5.1); Sodium 129 mmol/L (135-145); Total Protein 6.3 g/dl (6.3-8.2); eGFR 52.74
[2024-11-24 07:49] LABS: Glucose 466 mg/dl (70-99)
[2024-11-24 07:53] LABS: Troponin I 0.016 ng/ml
--- NOTE | 2024-11-24 08:00 | RR ---
Pt was on the toilet and started nodding off. He was staring blankly and not responding like he had been previously. Staff on the floor and this RN assisted pt back to bed. BP 70s/40s. BG reading high on glucometer. A Rapid Response was called on
this patient, please see Rapid Response form.
--- NOTE | 2024-11-24 08:02 | W.PN.HOSP.TC ---
Today's Communication/Plan
-
Rapid response this morning due to vasovagal syncopal episode. This event might as well explains history of syncopal and near syncopal episodes at home.
Holding Vasotec. Give IV fluid
EKG no changes, continue to do bladder scan per protocol
Give Lokelma
Give Zofran as needed
Will discuss with diabetic DIRECTOR OF PERSONNEL for hyperglycemia
Assessment / Plan
Assessment / Plan
Physical Exam
General: \\ No Apparent Distress
HEENT: Normocephalic, Moist mucous membranes
Respiratory: Decreased breath sounds bilaterally, no wheezes, right sided chest tube
Cardiac: S1/S2 and Regular Rhythm
GI: Soft, Non Tender, Non Distended and Normal Bowel Sounds
Musculoskeletal: No Cyanosis and No Edema
Skin: Warm. Dry.
Neuro: Alert. Awake. Nonfocal/grossly intact bilaterally.
Psych: calm
Assessment/Plan
74-year-old male presented with dizziness and weakness and falls over the several weeks (prior to presentation) associated with dizziness.
# Rapid response due to vasovagal syncope
He was in bathroom and passed out
He has been eating less to avoid high blood glucose
S/P Bolus NS IVF and BP improved
will do NS at 125 cc/ hour
EKG no changes
Patient denies chest pain or abdominal pain
Order tele
Holding Vasotec . Echo of heart this admission looked good LVEF 50-55%
# ROSSY
Low bP
Hold Vasotec
Give IVF
f/w Bladder scan
# pseudohyponatremia due to hyperglycemia, corrected sodium 138
c/w IVF
c/w insulin
# Fall resulting in moderate right acute traumatic pneumothorax in the setting of underlying possibly emphysema
-Chest tube placed
- Right-sided pneumothorax has returned while patient is on Water seal -- so resume suction as per pulmonary
- Chest x ray 11/21 showed: No pneumothorax seen on the current chest x-ray.
F/w pulmonary recommendations.
# Dizziness/weakness and falls/unsteadiness
# Recent Episodes of Possible Syncope
-Suspected multifactorial with possible hypoglycemia (has episodes of low blood sugars at home), possible hypotension at home, alcohol use, possible Parkinson's Disease as per
neurology
-Alcohol level negative
-TSH normal at 1.54, and Vitamin B12 normal at 575
-Neurology consulted as per vascular surgery's request to consult neurology; neurology communicated via [place] [facility] that this can be managed as an
outpatient, and that patient denies weakness or dizziness, just complaining of falls. Exam with a little bit of Parkinson�s; the right parietooccipital infarction
on head ct is in the MCA territory but it looks old so therefore not an inpatient problem.
-Neurology mentioned that patient's falls, handwriting changes, and possibly the dizziness is which is mild, due to Parkinson's disease, discussed starting Sinemet, they want to think about this
-CT Head showed small area of infarct right parieto-occipital junction, MCA territory, could be the related to the Right carotid stenosis. Stable chronic lacunar infarcts in bilateral basal ganglia, left thalamus, right cerebellum.
-CTA head/neck showed Left Carotid Bulb 80% stenosis, right carotid bulb 50% stenosis
-Brain MRI is not needed as per my communication with neurology is asking about brain MRI, re-consulted neurology and Dr Dotson ordered MRI
-Patient should stay on Plavix 75 and Lipitor 80, unless the Plavix needs to be held for GI bleeding
-Echo without any change compared to echo about 1 year ago
# Left carotid artery stenosis -- asymptomatic
-CTA showed bilateral carotid bifurcation calcified atherosclerosis contribute to 80% stenosis left carotid bulb and 50% of the right carotid bulb
-Vascular ultrasound results noted
-Vascular surgery consulted -- vascular surgery requested hospitalist consult neurology, therefore neurology consult placed
-Can benefit from outpatient carotid interventions bilaterally to lower patient's stroke risk
-Carotid disease not causing patient's dizziness, as per neurology
#Hyperkalemia -
Give Lokelma
Holding Vasotec
No EKG changes
#Upper GI Bleed/Copious Coffee Ground Emesis on 11/17/24
-Protonix 40 mg IV BID started
-PRN IV antiemetics
-GI consulted for evaluation of EGD
-Suspected component of esophagitis causing patient's symptoms versus gastritis/duodenitis versus less likely other etiologies
-Per GI, deferring any plans for an EGD given pneumothorax
-Consider EGD as an outpatient along with a colonoscopy at that time as he is overdue in terms of surveillance
-AVOID NSAIDs, limit alcohol intake
# Type 2 Diabetes Mellitus
# Hyperglycemia, still uncontrolled. No hypoglycemia over night
Labile DM
Patient reports that his BS are better managed at home, but he is not eating well, does not like hospital diabetic food.
-Diabetes DIRECTOR OF PERSONNEL consulted, appreciate evaluation and recommendations
Resumed Farxiga also
# Pseudohyponatremia secondary to hyperglycemia
-Continue to monitor
# Minimally displaced 10th rib fracture
-From prior chest x-ray on 10/31
#Active smoker
-Nicotine patch
#Right pontine CVA
-Continue Plavix, statin
#Alcohol use disorder
-Thiamine and folate
No signs of withdrawal but definitely upset and bored from being in hospital, offered Lorazem if anxiety but declined, will order it PRN
#Essential hypertension
Low BP, hold Medication
#GERD/Peptic ulcer disease
#Urinary retention secondary to BPH
-Continue tamsulosin
-Bladder scans protocol/monitor for urinary retention
#Hypercholesterolemia
-Continue statin, Zetia
Code Status: Full code
DVT Prophylaxis: SCDs. No chemical DVT prophylaxis given coffee ground emesis earlier this admission.
Diet: Diabetic diet
Total time spent to see the patient, examine the patient, review data and lab results, discuss treatment plan with patient and nursing staff around 55 minutes
Anticipated Discharge: Within 24 hours
Subjective/Interval History
-
Date of Service: November 24, 2024
Rapid response early this morning for syncope
Seen and examined
Objective Data
-
Labs:
Laboratory Results
11/23/24 11/24/24 11/24/24
21:47 06:59 07:13
WBC 7.8
Hgb 14.4
Hct 41.7
Plt Count 243
Sodium 129 L
Potassium 5.4 H
Chloride 98
Carbon Dioxide 16 L
BUN 55 H
Creatinine 1.4 H
Glucose 429 H 466 H* 468 H*
Calcium 9.4
Total Bilirubin 1.0
AST 29
ALT 24
Alkaline Phosphatase 104
Vital Signs:
Vital Signs
Temp Pulse Resp BP Pulse Ox
97.5 F 69 17 133/59 96
11/24/24 02:56 11/24/24 02:56 11/24/24 02:56 11/24/24 02:56 11/24/24 02:56
I&O
11/23/24 11/24/24 11/25/24
06:59 06:59 06:59
Intake Total 1680 / 1680 890 / 890
Output Total 750 / 750 777 / 777
Balance 930 / 930 113 / 113
[2024-11-24] MEDS: VITAMIN B1 100 MG PO ×2 (08:30→20:23)
[2024-11-24] MEDS: ZETIA 10 MG PO (08:30)
[2024-11-24] MEDS: PROTONIX 40 MG PO ×2 (08:30→20:23)
[2024-11-24] MEDS: NOVOLOG FLEXPEN-HIGH RESISTANCE 14 UNITS SC (08:42)
--- NOTE | 2024-11-24 09:38 | PN.IRAD.UPD ---
Update Note - IRAD
- -
Cleaned right sided chest tube with chloraprep and removed tube. Site dressed with vaseline gauze and an optifoam dressing.
Bert Coulter RT(R)()
--- NOTE | 2024-11-24 09:39 | CM ---
Patient with Dx Fall resulting in moderate right acute traumatic pneumothorax, Rapid response today due to vasovagal syncope. Room air. Chest tube. CXR today. Per nurse assessment; ambulatory in room, assist of 1, weak gait/transferring.
Patient may benefit from working with PT---> message to Dr Mcdonald with request for PT Eval.
Plan follow up if PT Eval ordered.
Plan probable home.
[2024-11-24] MEDS: NOVOLOG MIX 70/30 FLEXPEN 25 UNITS SC (09:59)
[2024-11-24 12:44] LABS: Glucose - Point of Care 298 mg/dl (70-99)
--- NOTE | 2024-11-24 12:49 | W.PN.PUL3 ---
Today's Communication / Plan
-
Chest tube removed today, doing well
Will repeat CXR in AM, if stable can assess for d/c planning
Care plan reviewed with patient
OP FU recommended
Evaluate next 24 hours
Assessment
-
74-year-old man with past medical history significant for alcohol use disorder, type 2 diabetes, hypertension, GERD, peptic ulcer disease, right pontine stroke, COPD, cardiomyopathy, urinary retention, BPH, presented with dizziness and weakness and
fall over the past several weeks associated with the dizziness as well. Patient has unsteady gait. Apparently has had syncopal episodes a few times.
[place] prior to admission with abrasion on the cheek. No respiratory symptoms. Diagnosed with pneumothorax on the right post fall. Chest tube was placed in the emergency room.
Right pneumothorax post fall/trauma in the setting of underlying possibly emphysema
Status post chest tube placement 11/16/2024
Conditions present prior admission:
Alcohol abuse
Hypertension
Type 2 diabetes
History of rib fracture post falling
COPD with minimal emphysema
Active smoker
Hypertension
GERD
History of peptic ulcer disease
Urinary retention due to BPH
Plan
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
Alcohol abuse disorder
Smoker with history of COPD. Not on inhalers as he has refused. Patient states that he does not know whether he has COPD or not. He denies shortness of breath with ambulation.
Denies chronic coughing or phlegm production.
Traumatic PTx
Chest tube with occasional air leak; no leak noted thus far
Chest x-ray 11/17/2024: On suction in the afternoon showed no recurrent pneumothorax
Chest tube placed to waterseal 11/17/2024 in the afternoon until 11/18/2024.
Chest x-ray on AM of 11/18 showed recurrent pneumothorax-looks like chest tube was retracted with the proximal end hole located outside the pleural cavity. Likely reason for recurrent pneumothorax.
Chest tube was exchanged by IR on 11/18/2024 and upsized from a 14 Fr to a 16 Fr chest tube, and repeat CXR today shows no pneumothorax
Chest tube placed to waterseal on 11/19/2024, however CXR this morning on 11/20 shows recurrent right-sided pneumothorax.
Chest tube placed back onto suction at -[id number] and repeat CXR this afternoon shows almost fully resolved right-sided pneumothorax.
Waterseal 11/22/24, plan to repeat CXR in 2 hours--stable, continues without airleak
Clamp trial 11/23/24-tolerated
Chest tube discontinued 11/24/24
Patient asymptomatic, on room air. No subcutaneous air, he feels comfortable
Repeat CXR in AM
Patient would benefit from outpatient pulmonary evaluation/follow-up in the future. Last followed with Dr. Lynch in the office - last visit 06/28/2024
Smoking cessation recommended-he smokes about 10 cigarettes/day.
If stable, can assess for d/c planning in 24 hours
Diagnostic Data
CXR 11/21/24- No pneumothorax seen on the current chest x-ray.
CT Chest 12/15/23- Opacification with some tree-in-bud opacities in the lower lobe of the left lung has virtually completely resolved in the interval since prior study. There is no new focal parenchymal opacification, pneumothorax, pleural effusion
or pericardial effusion. Evaluation of the gina are markedly limited without intravenous contrast. There is no significant mediastinal or axillary lymphadenopathy. Coronary artery calcifications are noted.
ECHO 11/18/24- Normal left ventricular size with low normal systolic function. LVEF 50-55%. Akinesis of apical septum and apical inferior wall. Normal RV size and function. Mild aortic stenosis (21/10 mmHg). No change compared to echocardiogram on
10/29/2023.
Total time spent today was 45 minutes for this encounter. Time includes reviewing laboratory test/imaging results, reviewing pertinent medical records, obtaining and reviewing medical history, performing an appropriate exam, ordering medications,
tests and procedures. Time also includes documentation of this encounter, coordinating patient care and communicating with other healthcare professionals. Total time does not include separately billed tests performed on this date of service.
Subjective Data
-
Date of Service:
Date of Service: November 24, 2024
Chief Complaint: Pulmonary Follow Up (Pneumothorax-trauma)
Subjective:
Doing well, chest tube removed this AM
No new complaints
Wants to go home
Objective Data
Data Reviewed
Vital Signs / I&O / Oxygen:
Vital Signs
Temp Pulse Resp BP Pulse Ox
98.3 F 70 17 96/50 94
11/24/24 11:33 11/24/24 11:33 11/24/24 11:33 11/24/24 11:33 11/24/24 11:33
Intake and Output
11/23/24 11/24/24 11/25/24
06:59 06:59 06:59
Intake Total 1680 / 1680 890 / 890
Output Total 750 / 750 777 / 777
Balance 930 / 930 113 / 113
SaO2 94
Physical Exam
General: Respiratory Distress (negative), Comfortable, Chills (negative) and Sweats (negative)
HEENT: Normocephalic, Anicteric and Moist Mucous Membranes
Cardiovascular: S1-S2, Regular Rhythm, Rub (negative) and Peripheral Edema (negative)
Respiratory: Wheeze (negative), Crackles (negative), Rhonchi (negative), Non-Labored Respirations, Stridor (negative) and Other (Diminished breath sounds bilaterally, crepitus around insertion site)
GI: Soft, Non Distended, Non Tender and Normal Bowel Sounds
Neurology: Awake, Alert, Oriented and Tremors (negative)
Skin: Warm, Dry, Cyanosis (negative) and Jaundice (negative)
Labs/Micro/Reports
Lab Data
11/24/24 07:13
11/24/24 07:13
[2024-11-24] MEDS: NOVOLOG FLEXPEN-HIGH RESISTANCE 7 UNITS SC (15:03)
--- NOTE | 2024-11-24 15:30 | PTCARENOTE ---
11/24/2024 DIABETES EDUCATION
I met with Mr. Freedman to review insulin pen injection, he has T1D and currently uses vial and syringe. Member states he does not want to switch to a pen, but agreed to verbal instruction and demonstration. Reinforced that he may find using an
insulin pen easy to administer as dialing the units are easier to see than with vial and syringe.
I educated and demonstrated on insulin injection technique, timing, and storage. Member participated in teach back demonstration but stated he does not plan to change to pen once home. I and encouraged him to administer his own injections with RN
supervision while admitted, and RN was in the room providing mealtime insulin (pen) with additional verbal instruction. I provided written documentation on proper insulin injection technique, using an insulin pen and outpatient diabetes program.
Mr. Tripp dismissed me from the room.
[2024-11-24 16:40] LABS: Glucose - Point of Care 246 mg/dl (70-99)
[2024-11-24] MEDS: LIPITOR 80 MG PO (18:05)
[2024-11-24] MEDS: PLAVIX 75 MG PO (18:05)
[2024-11-24] MEDS: NOVOLOG FLEXPEN-HIGH RESISTANCE 4 UNITS SC (19:21)
[2024-11-24] MEDS: NOVOLOG MIX 70/30 FLEXPEN 30 UNITS SC (19:21)
[2024-11-24 22:02] LABS: Glucose - Point of Care 107 mg/dl (70-99)
[2024-11-24 22:42] LABS: Blood Urea Nitrogen 54 mg/dl (9-20); Carbon Dioxide 22 mmol/L (22-30); Chloride 100 mmol/L (98-107); Estimated Creatinine Clearance 48 ml/min; Glucose 106 mg/dl (70-99); Sodium 132 mmol/L (135-145); eGFR > 60.00
[2024-11-25] MEDS: NSS 1000 IV ×2 (03:04→09:30)
[2024-11-25 03:09] LABS: Glucose - Point of Care 34 mg/dl (70-99)
[2024-11-25] MEDS: DEXTROSE 50% SYRINGE 12.5 GRAMS IV ×2 (03:12→03:49)
[2024-11-25 03:39] VITALS: BP 129/61
[2024-11-25 03:41] LABS: Glucose - Point of Care 60 mg/dl (70-99)
[2024-11-25 04:17] LABS: Glucose - Point of Care 99 mg/dl (70-99)
[2024-11-25 06:19] LABS: Glucose - Point of Care 83 mg/dl (70-99)
[2024-11-25 07:32] LABS: Glucose - Point of Care 61 mg/dl (70-99)
[2024-11-25 07:34] VITALS: BP 141/70
[2024-11-25 07:51] LABS: Glucose - Point of Care 74 mg/dl (70-99)
[2024-11-25 08:11] LABS: Urine Albumin 1+ (Neg - Trace); Urine Bilirubin Negative (Negative); Urine Character Slightly Cloudy (Clear); Urine Color Yellow; Urine Glucose 4+ (Negative); Urine Ketone Negative (Negative); Urine Leukocyte 3+ (Negative); Urine Nitrite Negative (Negative); Urine Occult Blood 2+ (Negative); Urine Specific Gravity 1.015 (<1.030); Urine Urobilinogen Negative (Neg - 1+)
--- NOTE | 2024-11-25 08:20 | PN.DE.MGMTRT ---
Insulin Management
- -
11/25/2024: Diabetes Management follow up
Patient admitted 11/16 with dizziness, injury to his face, falls, resulting in a pneumothorax. PMH: Cardiomyopathy, HTN, HLD, h/o CVA 2014, COPD, GERD w/gastric ulcers, daily alcohol use, tobacco use, colon polyps, urinary retention. Chest tube
placement in IR . He was noted for hyperglycemia on admission with a glucose level of 465 and was administered 12 units of NovoLog that resulted into hypoglycemia while NPO.
Pt off the unit during my visit, discussed new insulin and pen use with . states she is concerned patient does not take correct dose sometimes causing him to have severe hypoglycemia. Patient more receptive to change of insulin to 70/30,
reducing the number of shots to 2 and the number of insulins to just one pen. Explained to patient he would get the fast acting component to cover breakfast and dinner and the long acting component, similar to NPH, to cover the afternoon and
overnight.
Pt awake, alert, oriented, sitting up in bed, offers no complaints. Able to discuss diabetes care plan. at bedside
HS glucose 107, pt received additional 4 units of high corrective insulin after receiving 30 units of 70/30 at dinner time. Noted for an episode of hypoglycemia @3AM as low as 34, improved after treatment. Will reduce 70/30 dose to 25 units in AM
and 20 units in PM.
Will stop high corrective and change to low corrective with meals.
Will closely follow and make further insulin adjustments if necessary.
Had a lengthy discussion with pot and about importance of glucose monitoring at home. Discussed insulin doses and action to take if blood sugar dropps below 70. Encouraged pt again to get CGM script from PCP and to call the diabetes office for
assistance to set it up should they need help.
Meds at discharge: 70/30 NovoLog mixture 25 units in AM with breakfast and 20 units in PM with dinner.
Pt was seen by diabetes nurse educator for instructions on use of pen to decrease dose error.
Diabetes History
- -
Type of Diabetes: 1
Pre-Admission Diabetes Regimen
11/24/24 11/24/24
19:44 22:20
Creatinine Cancelled 1.1
Lab Results
Hemoglobin A1c 9.8 % (4.0-5.6) H 11/17/24 06:38
Insulin Pump Settings
IP Diabetes Regimen
11/24/24 11/24/24 11/24/24
12:43 16:40 19:44
Glucose Cancelled
POC Glucose 298 H 246 H
11/24/24 11/24/24 11/25/24
22:01 22:20 03:08
Glucose 106 H
POC Glucose 107 H 34 L*
11/25/24 11/25/24 11/25/24
03:39 04:16 06:17
Glucose
POC Glucose 60 L 99 83
11/25/24 11/25/24
07:31 07:50
Glucose
POC Glucose 61 L 74
Meal type: Dinner
Meal type: Lunch
Meal type: Breakfast
Amount consumed: 0
Amount consumed: 100%
Amount consumed: 90%
Patient Education
[2024-11-25] MEDS: NOVOLOG MIX 70/30 FLEXPEN 25 UNITS SC (09:27)
[2024-11-25] MEDS: PROTONIX 40 MG PO (09:29)
[2024-11-25] MEDS: ZETIA 10 MG PO (09:29)
[2024-11-25] MEDS: VITAMIN B1 100 MG PO (09:29)
[2024-11-25] MEDS: NOVOLOG FLEXPEN-HIGH RESISTANCE SC (09:29)
[2024-11-25] MEDS: FLOMAX 0.4 MG PO (09:29)
[2024-11-25] MEDS: VASOTEC 5 MG PO (09:29)
[2024-11-25 10:59] VITALS: BP 110/62
[2024-11-25 11:40] LABS: Glucose - Point of Care 104 mg/dl (70-99)
--- NOTE | 2024-11-25 11:42 | W.PN.HOSP.TC ---
Today's Communication/Plan
-
dc
Assessment / Plan
Assessment / Plan
Physical Exam
General: \\ No Apparent Distress
HEENT: Normocephalic, Moist mucous membranes
Respiratory: Decreased breath sounds bilaterally, no wheezes, right sided chest tube
Cardiac: S1/S2 and Regular Rhythm
GI: Soft, Non Tender, Non Distended and Normal Bowel Sounds
Musculoskeletal: No Cyanosis and No Edema
Skin: Warm. Dry.
Neuro: Alert. Awake. Nonfocal/grossly intact bilaterally.
Psych: calm
Assessment/Plan
74-year-old male presented with dizziness and weakness and falls over the several weeks (prior to presentation) associated with dizziness.
# Rapid response due to vasovagal syncope
He was in bathroom and passed out
He has been eating less to avoid high blood glucose
S/P Bolus NS IVF and BP improved
s/p IVF
EKG no changes
Patient denied chest pain or abdominal pain
Order tele
Held Vasotec . Echo of heart this admission looked good LVEF 50-55%
# ROSSY
resolved with IVF
# mild hyponatremia with also pseudohyponatremia due to hyperglycemia,
Sodium is improved with better blood glucose level.
# Fall resulting in moderate right acute traumatic pneumothorax in the setting of underlying possibly emphysema
-Chest tube placed and removed.
- Chest x ray 11/21 showed: No pneumothorax seen on the current chest x-ray. CXR showed Questionable tiny medial right apical pneumothorax. Patient has no symptoms.
F/w pulmonary recommendations.
# Dizziness/weakness and falls/unsteadiness
# Recent Episodes of Possible Syncope
-Suspected multifactorial with possible hypoglycemia (has episodes of low blood sugars at home), possible hypotension at home, alcohol use, possible Parkinson's Disease as per
neurology
-Alcohol level negative
-TSH normal at 1.54, and Vitamin B12 normal at 575
-Neurology consulted as per vascular surgery's request to consult neurology; neurology communicated via [place] [facility] that this can be managed as an
outpatient, and that patient denies weakness or dizziness, just complaining of falls. Exam with a little bit of Parkinson�s; the right parietooccipital infarction
on head ct is in the MCA territory but it looks old so therefore not an inpatient problem.
-Neurology mentioned that patient's falls, handwriting changes, and possibly the dizziness is which is mild, due to Parkinson's disease, discussed starting Sinemet, they want to think about this
-CT Head showed small area of infarct right parieto-occipital junction, MCA territory, could be the related to the Right carotid stenosis. Stable chronic lacunar infarcts in bilateral basal ganglia, left thalamus, right cerebellum.
-CTA head/neck showed Left Carotid Bulb 80% stenosis, right carotid bulb 50% stenosis
-Brain MRI is not needed as per my communication with neurology is asking about brain MRI, re-consulted neurology and Dr Dotson ordered MRI which did not show acute findings.
-Patient should stay on Plavix 75 and Lipitor 80, unless the Plavix needs to be held for GI bleeding
-Echo without any change compared to echo about 1 year ago
# Left carotid artery stenosis -- asymptomatic
-CTA showed bilateral carotid bifurcation calcified atherosclerosis contribute to 80% stenosis left carotid bulb and 50% of the right carotid bulb
-Vascular ultrasound results noted
-Vascular surgery consulted -- vascular surgery requested hospitalist consult neurology, therefore neurology consult placed
-Can benefit from outpatient carotid interventions bilaterally to lower patient's stroke risk
-Carotid disease not causing patient's dizziness, as per neurology
#Hyperkalemia -
Give Lokelma
Holding Vasotec
No EKG changes
#Upper GI Bleed/Copious Coffee Ground Emesis on 11/17/24
-Protonix 40 mg IV BID started
-PRN IV antiemetics
-GI consulted for evaluation of EGD
-Suspected component of esophagitis causing patient's symptoms versus gastritis/duodenitis versus less likely other etiologies
-Per GI, deferring any plans for an EGD given pneumothorax
-Consider EGD as an outpatient along with a colonoscopy at that time as he is overdue in terms of surveillance
-AVOID NSAIDs, counseled to avoid alcohol which is likely contributing to unsteady gait/falls.
# Type 2 Diabetes Mellitus
# Hyperglycemia, now better controlled.
Labile DM
-Diabetes CASH REGISTER REPAIRER consulted, appreciate evaluation and recommendations
Resumed Farxiga also
# Minimally displaced 10th rib fracture
-From prior chest x-ray on 10/31
#Active smoker
-Nicotine patch
#Right pontine CVA
-Continue Plavix, statin
#Alcohol use disorder
-Thiamine and folate
No signs of withdrawal but definitely upset and bored from being in hospital, offered Lorazem if anxiety but declined, will order it PRN
#Essential hypertension
better controlled.
#GERD/Peptic ulcer disease
#Urinary retention secondary to BPH
-Continue tamsulosin
-Bladder scans protocol/monitor for urinary retention
UA might be c/w UTI, no fever or leukocytosis, will f/w culture, call pt if postitive.
#Hypercholesterolemia
-Continue statin, Zetia
Code Status: Full code
DVT Prophylaxis: SCDs. No chemical DVT prophylaxis given coffee ground emesis earlier this admission.
Diet: Diabetic diet
Total discharge time spent to see the patient, examine the patient, review data and lab results, discuss discharge plan with patient and nursing staff around 67 minutes
Anticipated Discharge: Today
Subjective/Interval History
-
Date of Service: November 25, 2024
No chest pain or sob
Would like to go home
Objective Data
-
Vital Signs:
Vital Signs
Temp Pulse Resp BP Pulse Ox
97.3 F 67 16 110/62 100
11/25/24 10:59 11/25/24 10:59 11/25/24 10:59 11/25/24 10:59 11/25/24 10:59
I&O
11/24/24 11/25/24 11/26/24
06:59 06:59 06:59
Intake Total 890 / 890 360 / 360
Output Total 777 / 777 2059
Balance 113 / 113 -1700 / -0
[2024-11-25 11:51] LABS: Urine Squamous Cell 0-2 /LPF (Few)
[2024-11-25 11:54] LABS: Urine Amorphous Seen; Urine Red Blood Cell 0-2 /HPF (0-2); Urine Urothelial Cell 0-2 /LPF (FEW)
[2024-11-25 11:55] LABS: Urine Bacteria Many (Negative); Urine White Cell 80-90 /HPF (0-5); Urine Yeast Many (Negative)
--- NOTE | 2024-11-25 12:25 | CM ---
Received notification from attending that patient is medically cleared for discharge. Attending wants for patient to have VN. Met with patient and his who were agreeable to d/c, reviewed IMM. They requested VN. Referral sent.
Plan: Case management will continue to follow and assist with discharge planning. Home with VN. to transport.
--- NOTE | 2024-11-25 13:10 | VNURNOTE ---
Home Health Liaison met with patient and spouse at bedside to discuss [facility] nurse/therapy, visits, schedule and homebound status. Both are agreeable and understands that visits at home will be 2-3 x per week to assess and teach medical management.
[facility] brochure provided with contact information. Patient is aware that [facility] will contact them for start of care in 1-2 days after discharge from .
[facility] referral completed in [facility].
[2024-11-25 14:03] VITALS: BP 111/64; BP 114/64; BP 114/70; BP 121/52
--- NOTE | 2024-11-25 14:27 | W.PN.PUL3 ---
Today's Communication / Plan
-
CXR with questionable small residual ptx, but could repeat testing this afternoon
He is ready for discharge, we reviewed can call office to obtain chest imaging if symptoms change
Pulm OP FU to be arranged
Discharge planning per team
Assessment
-
74-year-old man with past medical history significant for alcohol use disorder, type 2 diabetes, hypertension, GERD, peptic ulcer disease, right pontine stroke, COPD, cardiomyopathy, urinary retention, BPH, presented with dizziness and weakness and
fall over the past several weeks associated with the dizziness as well. Patient has unsteady gait. Apparently has had syncopal episodes a few times.
[place] prior to admission with abrasion on the cheek. No respiratory symptoms. Diagnosed with pneumothorax on the right post fall. Chest tube was placed in the emergency room.
Right pneumothorax post fall/trauma in the setting of underlying possibly emphysema
Status post chest tube placement 11/16/2024
Conditions present prior admission:
Alcohol abuse
Hypertension
Type 2 diabetes
History of rib fracture post falling
COPD with minimal emphysema
Active smoker
Hypertension
GERD
History of peptic ulcer disease
Urinary retention due to BPH
Plan
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
Alcohol abuse disorder
Smoker with history of COPD. Not on inhalers as he has refused. Patient states that he does not know whether he has COPD or not. He denies shortness of breath with ambulation.
Denies chronic coughing or phlegm production.
Traumatic PTx
Chest tube with occasional air leak; no leak noted thus far
Chest x-ray 11/17/2024: On suction in the afternoon showed no recurrent pneumothorax
Chest tube placed to waterseal 11/17/2024 in the afternoon until 11/18/2024.
Chest x-ray on AM of 11/18 showed recurrent pneumothorax-looks like chest tube was retracted with the proximal end hole located outside the pleural cavity. Likely reason for recurrent pneumothorax.
Chest tube was exchanged by IR on 11/18/2024 and upsized from a 14 Fr to a 16 Fr chest tube, and repeat CXR today shows no pneumothorax
Chest tube placed to waterseal on 11/19/2024, however CXR this morning on 11/20 shows recurrent right-sided pneumothorax.
Chest tube placed back onto suction at -[id number] and repeat CXR this afternoon shows almost fully resolved right-sided pneumothorax.
Waterseal 11/22/24, plan to repeat CXR in 2 hours--stable, continues without airleak
Clamp trial 11/23/24-tolerated
Chest tube discontinued 11/24/24
Patient asymptomatic, on room air. No subcutaneous air, he feels comfortable
Repeat CXR in AM with small residual ptx
Patient would benefit from outpatient pulmonary evaluation/follow-up in the future. Last followed with Dr. Lynch in the office - last visit 06/28/2024
Smoking cessation recommended-he smokes about 10 cigarettes/day.
Discharge planning
Diagnostic Data
CXR 11/21/24- No pneumothorax seen on the current chest x-ray.
CT Chest 12/15/23- Opacification with some tree-in-bud opacities in the lower lobe of the left lung has virtually completely resolved in the interval since prior study. There is no new focal parenchymal opacification, pneumothorax, pleural effusion
or pericardial effusion. Evaluation of the gina are markedly limited without intravenous contrast. There is no significant mediastinal or axillary lymphadenopathy. Coronary artery calcifications are noted.
ECHO 11/18/24- Normal left ventricular size with low normal systolic function. LVEF 50-55%. Akinesis of apical septum and apical inferior wall. Normal RV size and function. Mild aortic stenosis (21/10 mmHg). No change compared to echocardiogram on
10/29/2023.
Total time spent today was 45 minutes for this encounter. Time includes reviewing laboratory test/imaging results, reviewing pertinent medical records, obtaining and reviewing medical history, performing an appropriate exam, ordering medications,
tests and procedures. Time also includes documentation of this encounter, coordinating patient care and communicating with other healthcare professionals. Total time does not include separately billed tests performed on this date of service.
Subjective Data
-
Date of Service:
Date of Service: November 25, 2024
Chief Complaint: Pulmonary Follow Up (Pneumothorax-trauma)
Subjective:
No new events, stable on RA
No new complaints
Objective Data
Data Reviewed
Vital Signs / I&O / Oxygen:
Vital Signs
Temp Pulse Resp BP Pulse Ox
97.3 F 67 16 110/62 100
11/25/24 10:59 11/25/24 10:59 11/25/24 10:59 11/25/24 10:59 11/25/24 10:59
Intake and Output
11/24/24 11/25/24 11/26/24
06:59 06:59 06:59
Intake Total 890 / 890 360 / 360
Output Total 777 / 777 2059
Balance 113 / 113 -1700 / -1700
SaO2 100
Physical Exam
General: Respiratory Distress (negative), Comfortable, Chills (negative) and Sweats (negative)
HEENT: Normocephalic, Anicteric and Moist Mucous Membranes
Cardiovascular: S1-S2, Regular Rhythm, Rub (negative) and Peripheral Edema (negative)
Respiratory: Clear, Wheeze (negative), Crackles (negative), Rhonchi (negative), Non-Labored Respirations and Stridor (negative)
GI: Soft, Non Distended, Non Tender and Normal Bowel Sounds
Neurology: Awake, Alert, Oriented and Tremors (negative)
Skin: Warm, Dry, Cyanosis (negative) and Jaundice (negative)
Labs/Micro/Reports
Lab Data
11/24/24 07:13
11/24/24 22:20
[2024-11-25 15:43] VITALS: BP 112/56
--- NOTE | 2024-11-25 15:45 | W.DCSUMMARY ---
Discharge Summary
Discharge Data
Date of Admission: 11/16/24
Date of Discharge: 11/25/24
-
Pending Results: No
Hospital Course
74 years old male presented with history of falls, dizziness, gait dysfunction for few days/weeks. He had 2 recent falls which were significant. Scan of the chest showed a right pneumothorax, moderate. Chest tube was placed. Imaging studies of
the head showed no acute finding but findings consistent with chronic small infarcts and left carotid artery stenosis. Patient was evaluated by vascular surgery and recommended outpatient follow-up to discuss intervention to lower patient's stroke
risk. Patient was evaluated by neurology. Neurology felt that symptoms were not consistent with carotid disease but most likely related to neuropathy or possibility of Parkinson disease and recommended to follow in outpatient setting. neurology
offered to start Parkinson medication but patient and his wanted further evaluation in outpatient setting. Patient was noted to have hypotension with 1 episode of vasovagal episode. Enalapril was reduced was given IV fluid. Subsequently,
enalapril was restarted but lower dose. Patient reported that he had coffee-ground emesis. He was evaluated by gastroenterology and recommended outpatient evaluation after recovery from pneumothorax. Patient was given dose of Protonix.
Subsequently, patient tolerated diet and did not have vomiting or nausea. Patient was followed by pulmonary. Chest tube was removed. Patient did not have hypoxia and did not need oxygen. Patient had fluctuation in his blood glucose. He was
followed by cosmetology educator and adjustments were made to his insulin treatment. Patient and his were counseled regarding the treatment of diabetes. Patient was advised to avoid tobacco use and alcohol use. He was given thiamine. Patient
remained fully oriented and did not have confusion or signs of delirium. Patient was able to tolerate diet. He was evaluated by physical therapy, recommended fpc facility but patient declined and wanted to go home. Patient was
evaluated by trimming caser and was discharged home with home care services in a stable condition.
Discharge Plan
-
Patient Disposition: Home with Home Care
Discharge Diagnosis/Procedures: Right pneumothorax post fall/trauma in the setting of underlying possibly emphysema Status post chest tube placement 11/16/2024. You were followed by pulmonary doctor. You had imaging studies of your chest. Chest
tube was removed. You did not need oxygen.
Diabetes, your blood sugar fluctuated between up and down. You are followed by diabetic specialist. Insulin treatment was changed as instructed. We stopped Farxiga.
History of falls. We advised to avoid alcohol. But showed chronic lacunar strokes
Essential hypertension. You had low blood pressure in the hospital and you had syncopal episode. You were seen by neurologist. MRI of the brain did not show acute stroke, showed moderate age-related parenchymal atrophy, small chronic infarcts.
Continue taking Plavix With statin therapy avoid tobacco use. We reduced the dose of enalapril to 5 mg daily. Monitor your blood pressure and follow-up with your primary care doctor.
You had a urine test. We will call you if urine culture is positive for infection.
-You reported coffee-ground emesis, we started you on Protonix. You were seen by gastroenterology, we recommend outpatient follow-up as an outpatient along with a colonoscopy.
Diet: Diabetic, Carb Controlled
Referrals:
Tru Guzman III, MD [Active] - 12/08/24 8:00 am
Kash Sharpe MD [Active] - in three to four weeks (May see SALESPERSON [employer]MENT)
Candie Savage MD [Active] - in one month
Amelia Broussard MD [Family Provider] -
Prescriptions:
New
insulin asp prt-insulin aspart [Novolog Mix 70-30 U-100 Insuln] 100 unit/mL (70-30) Solution
25 unit SC DAILY@0800 Qty: 1 0RF
Rx Instructions:
take 25 units before breakfst
insulin asp prt-insulin aspart [Novolog Mix 70-30 U-100 Insuln] 100 unit/mL (70-30) Solution
20 unit SC DAILY@1800 Qty: 1 0RF
Rx Instructions:
TAKE 20 UNITS BEFORE DINNER
enalapril maleate 5 mg Tablet
5 mg PO DAILY Qty: 30 0RF
pantoprazole [Protonix] 40 mg tablet,delayed release (DR/EC)
40 mg PO DAILY Qty: 10 0RF
Continued
clopidogrel 75 MG tablet
75 mg PO DAILY
atorvastatin 80 mg Tablet
80 mg PO QPM
ezetimibe 10 mg Tablet
10 mg PO DAILY
Patient Comments:
01/30/2024, pt. unsure if he is taking this med. or not; filled on 01/05/2024 for a 30-day supply.
acetaminophen 500 mg Tablet
1,000 mg PO DAILYPRN PRN (Reason: mild pain)
tamsulosin 0.4 mg Capsule
0.4 mg PO DAILY
Discontinued
enalapril maleate 20 MG tablet
20 mg PO BID
insulin NPH isoph U-100 human 100 unit/mL Suspension
26 unit SC DAILY
insulin NPH isoph U-100 human 100 unit/mL Suspension
16 unit SC QPM
Patient Comments:
pt took 8 Units insulin last PM, 07/12/24.
insulin lispro [Humalog U-100 Insulin] 100 unit/mL Solution
1 - 3 unit SC DAILYPRN PRN (Reason: diabetes)
Patient Comments:
dapagliflozin propanediol [Farxiga] 10 mg Tablet
10 mg PO QPM
Discharge Orders:
Discharge Patient (As Directed); Ordered 11/25/24
Ordered By: Annalise Mcdonald
Discharge Date and Time
Discharge Date/Time: 11/25/24 15:52
Print Language: SURINAMESE
== END 2024-11-25 15:52 | disposition home health service (06) | DRG 199 ==
LOC: 3 WEST ACU 19:14
PROVIDERS: Hospitalist; Nurse Practitioner Family; Physician Assistant; Radiology Vascular & Interventional Radiology; ADMITTING PHYSICIAN Hospitalist; ATTENDING PHYSICIAN Internal Medicine; CONSULT PHYSICIAN Internal Medicine Critical Care Medicine; CONSULT PHYSICIAN Psychiatry & Neurology Clinical Neurophysiology; CONSULT PHYSICIAN Specialist; EMERGENCY PHYSICIAN Emergency Medicine; FAMILY PHYSICIAN Internal Medicine; OTHER PHYSICIAN Student in an Organized Health Care Education/Training Program; OTHER PHYSICIAN Surgery Vascular Surgery
PROC: 0W9930Z Drainage of Right Pleural Cavity with Drainage Device, Percutaneous Approach (ICD-10-PCS; 2024-11-16)
DX: S27.0XXA Traumatic pneumothorax, initial encounter (principal); G92.9 Unspecified toxic encephalopathy; E87.1 Hypo-osmolality and hyponatremia; S22.31XA Fracture of one rib, right side, initial encounter for closed fracture; N17.9 Acute kidney failure, unspecified; K92.0 Hematemesis; W19.XXXA Unspecified fall, initial encounter; E11.65 Type 2 diabetes mellitus with hyperglycemia; E11.40 Type 2 diabetes mellitus with diabetic neuropathy, unspecified; Z91.81 History of falling; I50.9 Heart failure, unspecified; I11.0 Hypertensive heart disease with heart failure; G20.A1 Parkinson's disease without dyskinesia, without mention of fluctuations; Z86.73 Personal history of transient ischemic attack (TIA), and cerebral infarction without residual deficits; I65.23 Occlusion and stenosis of bilateral carotid arteries; E87.5 Hyperkalemia; F17.210 Nicotine dependence, cigarettes, uncomplicated; F10.10 Alcohol abuse, uncomplicated; K21.9 Gastro-esophageal reflux disease without esophagitis; R33.8 Other retention of urine; N40.1 Benign prostatic hyperplasia with lower urinary tract symptoms; E78.00 Pure hypercholesterolemia, unspecified; Z87.11 Personal history of peptic ulcer disease; J44.9 Chronic obstructive pulmonary disease, unspecified; Z79.02 Long term (current) use of antithrombotics/antiplatelets; Z79.4 Long term (current) use of insulin; S00.83XA Contusion of other part of head, initial encounter; K44.9 Diaphragmatic hernia without obstruction or gangrene; Z86.0100 Personal history of colon polyps, unspecified; N52.9 Male erectile dysfunction, unspecified
CPT/HCPCS: 93308; 32557; 70496; 70498; 70551; 71045; 71046; 72141; 80048; 80053; 81003; 81015; 82077; 82088; 82570; 82607; 82947; 82962; 83036; 83735; 83930; 83935; 84132; 84133; 84244; 84300; 84443; 84484; 85025; 85027; 87077; 87086; 93005; 93321; 93325; 93880; 94640; 96360; 96372; 97162; 97167; 97530; 99152; 99153; 99285; 99406; C1729; C1769; Q9967

== ENCOUNTER → 2024-12-19 11:02 | Outpatient (REF) | payer MEDICARE, SELFPAY | LOC: HWRAD 11:02 | PROVIDERS: ATTENDING PHYSICIAN Internal Medicine Critical Care Medicine; FAMILY PHYSICIAN Internal Medicine | DX: F17.210 Nicotine dependence, cigarettes, uncomplicated (principal) | CPT/HCPCS: 71271 ==

== ENCOUNTER 2025-03-02 14:04 | Inpatient (IN) | payer MEDICARE, SELFPAY ==
[2025-03-02] VITALS (10 sets, daily range): BP systolic 90–135; BP diastolic 50–64; PULSE 60–86; BMI 18.8
[2025-03-02 12:24] LABS: % Basophils 0.5 % (0-2); % Eosinophils 0.1 % (0-6); % Immature Granulocytes 0.2 % (0-0.5); % Lymphocytes 8.4 % (20.5-51.1); % Neutrophils 84.8 % (42.2-75.2); Absolute Basophils 0.1 10^3/uL (0-0.2); Absolute Lymphocytes 0.9 10^3/uL (1.2-3.4); Absolute Monocytes 0.6 10^3/uL (0.1-0.6); Absolute Neutrophils 8.6 10^3/uL (1.4-6.5); Hematocrit 37.2 % (39.0-52.0); Hemoglobin 12.8 g/dL (13.0-18.0); Mean Corp Hgb Conc. 34.4 g/dL (33.0-37.0); Mean Corpuscular Hgb 30.7 pg (27.0-31.0); Mean Corpuscular Volume 89.2 fL (80.0-94.0); Mean Platelet Volume 9.5 fL (7.4-10.4); Nucleated Red Blood Cells % 0 % (-); Platelet Count 208 10^3/uL (130-400); Red Blood Cell Count 4.17 10^6/uL (4.70-6.10); Red Cell Dist. Width 13.5 % (11.5-14.5); White Blood Cell Count 10.1 10^3/uL (4.8-10.8)
[2025-03-02 12:34] LABS: INR 0.99; PT 13.6 Sec (11.4-14.6)
[2025-03-02 12:35] LABS: APTT 24.1 Sec (23.4-35.0)
[2025-03-02 12:53] LABS: ALT (SGPT) 31 U/L (0-50); AST (SGOT) 31 U/L (17-59); Albumin 4.1 g/dl (3.5-5.0); Alkaline Phosphatase 56 U/L (38-126); Blood Urea Nitrogen 38 mg/dl (9-20); Calcium 9.7 mg/dl (8.4-10.2); Carbon Dioxide 23 mmol/L (22-30); Chloride 99 mmol/L (98-107); Glucose 499 mg/dl (70-99); Lipase 53 U/L (23-300); Potassium 4.8 mmol/L (3.5-5.1); Sodium 131 mmol/L (135-145); Total Bilirubin 1.2 mg/dl (0.2-1.3); Total Protein 6.5 g/dl (6.3-8.2); eGFR 57.65
--- NOTE | 2025-03-02 13:05 | ED.GENMED ---
History of Present Illness
General
Chief Complaint: Abdominal Symptoms
Time Seen by Provider: 03/02/25 11:21
History of Present Illness
History of Present Illness:
74-year-old male with history of diabetes, Parkinson's, peptic ulcer disease, esophagitis presenting to the emergency department for 4 episodes of coffee-ground emesis prior to arrival. Patient arrives with who notes that after episodes of
vomiting, became very weak. Patient is supposed to get colonoscopy and endoscopy on Thursday by GI. Denies seeing any blood in the stool. Denies associate abdominal pain. Denies chest pain or difficulty breathing. Patient is on Plavix, however
stopped the Plavix last week in planning for the colonoscopy and endoscopy. Notes some dizziness. Denies additional acute medical plaints
Past History
Past History
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
ED Past Surgical History: Orthopedic (right heel fracture 2009), Tonsilectomy and Urological
Social History
Tobacco: Smoker
Alcohol: Daily
Drug: None
Personal:
Living: with family
Family History
Family History: Other (reviewed and noncontributory)
Phy Exam
Physical Exam
Physical Exam:
General: Well-appearing, no clinical signs of dehydration, nontoxic and in no acute distress
HEENT: protecting airway
Neck: appears supple
CV: Normal heart rate, regular rhythm,
Resp: No accessory muscle use, no increased work of breathing, lungs clear to auscultation bilaterally
Abd: Soft and non-distended, no tenderness to palpation
Extremities: No deformities, no swelling, no erythema, pulses and sensation intact
Neuro: alert, no focal neurologic deficit
: Brown stool, guaiac positive
Rectal: deferred
Psych: Normal affect
Skin: Intact
Course
Orders/Labs/Results
Orders:
Orders
03/02/25 12:10
Urinalysis Reflex To Culture Urgent
Date Specimen was Collected: 03/02/25
Time Specimen was Collected: 12:11
03/02/25 12:15
Complete Blood Count/With Diff Urgent
Comprehensive Metabolic Panel Urgent
Lipase Urgent
PTT Urgent
Prothrombin Time Urgent
03/02/25 13:04
Pantoprazole 80 mg/100 ml Nss [Protonix] 80 mg in 100 ml IV NOW
03/02/25 13:05
0.9% Sodium Chloride 1000 ml [Nss] 1,000 ml IV BOLUS
Abnormal Lab Results
03/02/25
12:15
RBC 4.17 L 10^6/uL
(4.70-6.10)
Hgb 12.8 L g/dL
(13.0-18.0)
Hct 37.2 L %
(39.0-52.0)
Absolute Neuts (auto) 8.6 H 10^3/uL
(1.4-6.5)
Absolute Lymphs (auto) 0.9 L 10^3/uL
(1.2-3.4)
Neutrophils % 84.8 H %
(42.2-75.2)
Lymphocytes % 8.4 L %
(20.5-51.1)
Sodium 131 L mmol/L
(135-145)
BUN 38 H mg/dl
(9-20)
Glucose 499 H* mg/dl
(70-99)
03/02/25 12:15
03/02/25 12:15
Vital Signs
Initial and Last Documented VS:
Initial Vital Signs
Temp Pulse Resp BP Pulse Ox
97.8 F 77 18 135/58 97
03/02/25 11:09 03/02/25 11:09 03/02/25 11:09 03/02/25 11:09 03/02/25 11:09
Last Documented Vital Signs
Temp Pulse Resp BP Pulse Ox
97.8 F 69 22 121/56 96
03/02/25 11:09 03/02/25 12:45 03/02/25 12:45 03/02/25 12:00 03/02/25 12:45
MDM/Problems Addressed
MDM/Problems Addressed:
74-year-old male with history of diabetes, Parkinson's, peptic ulcer disease, esophagitis presenting for 4 episodes of coffee-ground emesis prior to arrival. Vital signs on arrival are normal.
On exam patient resting comfortably, no acute distress. Benign cardiac and pulmonary exam. No active emesis. No tenderness to abdomen. Brown stool on rectal exam, however is faintly guaiac positive. Concern for upper GI bleed. No hemodynamic
instability at this time. Will screen with laboratory analysis and discussed with GI.
13:10 - Patient's labs do show mild anemia comparison to prior values. Glucose is uncontrolled, however on review of EMR, patient frequently has uncontrolled glucose. No present anion gap or concern for DKA. Will start IV fluids. Did make GI
aware given that he patient is supposed to get colonoscopy and endoscopy on Thursday. Ultimately suspect peptic ulcer disease versus erosive esophagitis, prior history. Will start pantoprazole and plan for admission.
*Critical Care Note
Total Time (30-74mins, 75-104mins- exclusive of procedures): Not Applicable
ED Attending Note
-
Portions of this chart may have been created with voice recognition software.� Occasional wrong word or��sound alike� substitutions may have occurred due to the inherent limitations of voice recognition software.
Discharge Plan
Departure
Prescriptions:
No Action
clopidogrel 75 MG tablet
75 mg PO DAILY
atorvastatin 80 mg Tablet
80 mg PO QPM
ezetimibe 10 mg Tablet
10 mg PO DAILY
Patient Comments:
01/30/2024, pt. unsure if he is taking this med. or not; filled on 01/05/2024 for a 30-day supply.
acetaminophen 500 mg Tablet
1,000 mg PO DAILYPRN PRN (Reason: mild pain)
tamsulosin 0.4 mg Capsule
0.4 mg PO DAILY
insulin asp prt-insulin aspart [Novolog Mix 70-30 U-100 Insuln] 100 unit/mL (70-30) Solution
25 unit SC DAILY@0800 Qty: 1 0RF
Rx Instructions:
take 25 units before breakfst
insulin asp prt-insulin aspart [Novolog Mix 70-30 U-100 Insuln] 100 unit/mL (70-30) Solution
20 unit SC DAILY@1800 Qty: 1 0RF
Rx Instructions:
TAKE 20 UNITS BEFORE DINNER
enalapril maleate 5 mg Tablet
5 mg PO DAILY Qty: 30 0RF
pantoprazole [Protonix] 40 mg tablet,delayed release (DR/EC)
40 mg PO DAILY Qty: 10 0RF
Referrals:
Amelia Broussard MD [Family Provider, Internal Medicine]
Interventions
Interventions:
*Risk Screen - Suicide Last Done: 03/02/25 11:09
*General Assessment Last Done: 03/02/25 11:09
*Neglect/Abuse Screening Last Done: 03/02/25 11:09
*ED- Fall Risk Assessment Last Done: 03/02/25 12:13
*ED COVID-19 Vaccine History Last Done: 03/02/25 12:16
QK-Gyqksx-Nixwbgkdlg Assessment Last Done: 03/02/25 12:13
Discharge Date and Time
Print Language: EMIRATI
--- NOTE | 2025-03-02 13:10 | CON.GI ---
Addendum entered and electronically signed by Murtaza Nguyen MD 03/02/25 14:05:
Patient seen and examined, agree with nurse practitioner note. Patient is a 74-year-old male with past medical history as noted who presents with coffee-ground emesis. He has a history of coffee-ground emesis during his recent hospitalization in
October, when he was hospitalized with pneumothorax. He been feeling well since then and saw Dr. Andre in follow-up, and was planned to have EGD and colonoscopy on Thursday, also for surveillance of tubulovillous adenoma. He stopped his Plavix on
Thursday. Yesterday he he noted to have an episode of nausea with several episodes of vomiting, at least 1 with coffee-ground material. He has not had any melena or hematochezia and currently is feeling much better. He has noted that his glucose
was reading high yesterday during the day and at night prior to his emesis, and on admission here was 499. On exam he has no significant abdominal tenderness and is otherwise benign.
1. Coffee-ground emesis: With nausea and vomiting likely related to hyperglycemia, with otherwise benign exam. He has no melena, is hemodynamically stable and doubt brisk active bleeding now. He has been holding his Plavix since Thursday. Possible
etiologies Janet-Walter tear, gastritis, less likely significant peptic ulcer disease. I discussed with him and his , advised admission for hydration, glycemic control, PPI and observation, and will plan EGD tomorrow. Pending those results he
has planned outpatient colonoscopy on Thursday for surveillance of tubulovillous adenoma.
Original Note:
Consultation
-
Date/Time Consultation Requested: 03/02/25 1300
Date/Time Consultation Performed: 03/02/25 1310
Requesting Provider: Cindy Varghese DO
Performing Provider: DORY Vicente, Bossman Nguyen MD
Reason for Consultation: coffee ground emesis
Medical History
Chief Complaint / HPI
Chief Complaint: fall
History of Present Illness:
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
ED, fall with pneumothorax with admission in October. During that admission he was noted with coffee ground emesis. With improved symptoms he was sent up for outpatient EGD along with colonoscopy with hx polyps. He now presents with recurrent
vomiting coffee grounds. In review with family vomiting started to 4am on 03/02 with yellow debris on face but coffee ground in basin with about 4 episode of vomiting prior to admission. He denies any chronic vomiting issues. Pt also noted with
weight loss of about 20 lbs since last years. Per pt and family some diarrhea but odynophagia, dysphagia, GERD, abdominal pain, constipation or rectal bleeding. On admission noted with hbg 12.8 with drop from 14 range in November, glucose 499 BUN 38,
Na 131 with stable INR, platelets and albumin.
Last EGD 2012 Dr. Pradhan, HH, gastric ulcers gatriritis , last colonoscopy 2016 with multiple polyps with 50mm polyp in rectum repeat flex 01/2017 with tight sphincter tattoo in rectum and site normal. Was recommended follow up not completed and
schedule for 03/06.
Past Medical History
Past Medical History: COPD, CVA, HTN, Hypercholesterolemia, IDDM and Other (Cardiomyopathy, gastric ulcers, HH, tobacco abuse, colon polyps, urinary retention, erectile dysfunction, prior clavical fx)
Past Surgical History: Orthopedic (heel fracture ), Urological and Other (Right heel fracture, tonsillectomy, urological procedure)
Social History
Tobacco: Smoker (6-10 cig per day )
Alcohol: Daily (At least 2 beers daily)
Drug: None
Personal:
Living: With Family
Employment: Retired
Family History
Family History: Other (No family history of gastrointestinal malignancy or IBD)
Allergies / Home Medications
Allergy/AdvReac Type Severity Reaction Status Date / Time
No Known Allergies Allergy Verified 03/02/25 11:09
�Medication �Instructions �Recorded
clopidogrel 75 mg tablet 75 mg PO DAILY Blood Clot 05/26/23
Prevention/Tx
atorvastatin 80 mg tablet 80 mg PO QPM High Cholesterol 08/19/23
ezetimibe 10 mg tablet 10 mg PO DAILY High Cholesterol 01/21/24
acetaminophen 500 mg tablet 1,000 mg PO DAILYPRN PRN mild pain 07/06/24
tamsulosin 0.4 mg capsule 0.4 mg PO DAILY Urinary Issue 11/16/24
enalapril maleate 5 mg tablet 5 mg PO DAILY #30 tabs 11/25/24
insulin aspar prt-insulin aspart 20 unit (0.2 mL) SC DAILY@1800 11/25/24
100 unit/mL (70-30) subcutaneous Diabetes #1 vial
soln (Novolog Mix 70-30 U-100
Insuln)
insulin aspar prt-insulin aspart 25 unit (0.25 mL) SC DAILY@0800 11/25/24
100 unit/mL (70-30) subcutaneous Diabetes #1 vial
soln (Novolog Mix 70-30 U-100
Insuln)
pantoprazole 40 mg tablet,delayed 40 mg PO DAILY #10 tabs 11/25/24
release (Protonix)
Review of Systems
-
History Source: Patient and Family
Constitutional: Reports Weight Loss
EENT: Reports No Symptoms
Respiratory: Reports No Symptoms
Cardiac: Reports No Symptoms
Abdomen/GI: Reports Nausea, Vomiting and Diarrhea (at times)
: Reports No Symptoms
Musculoskeletal: Reports Other (no further falls since last admission)
Skin: Reports No Symptoms
Neurological: Reports Weakness
Endocrine: Reports No Symptoms
Hematologic/Lymphatic: Reports Bleeding
Vital Signs
Temp Pulse Resp BP Pulse Ox
97.8 F 69 22 121/56 96
03/02/25 11:09 03/02/25 12:45 03/02/25 12:45 03/02/25 12:00 03/02/25 12:45
Physical Exam
Exam
General: Other (thin appearing no acute distress )
HEENT: Normocephalic and Anicteric
Respiratory: Clear
Cardiac: Regular Rhythm
GI: Soft, Non Tender and Non Distended
Musculoskeletal: No Clubbing and No Cyanosis
Skin: Warm and Dry
Neuro: Awake, Alert and AO x 3
Psych: Calm
Results
WBC 10.1 10^3/uL (4.8-10.8) 03/02/25 12:15
Hgb 12.8 g/dL (13.0-18.0) L 03/02/25 12:15
Hct 37.2 % (39.0-52.0) L 03/02/25 12:15
MCV 89.2 fL (80.0-94.0) 03/02/25 12:15
Plt Count 208 10^3/uL (130-400) 03/02/25 12:15
Absolute Neuts (auto) 8.6 10^3/uL (1.4-6.5) H 03/02/25 12:15
PT 13.6 Sec (11.4-14.6) 03/02/25 12:15
INR 0.99 03/02/25 12:15
APTT 24.1 Sec (23.4-35.0) 03/02/25 12:15
Sodium 131 mmol/L (135-145) L 03/02/25 12:15
Potassium 4.8 mmol/L (3.5-5.1) 03/02/25 12:15
Chloride 99 mmol/L (98-107) 03/02/25 12:15
Carbon Dioxide 23 mmol/L (22-30) 03/02/25 12:15
BUN 38 mg/dl (9-20) H 03/02/25 12:15
Creatinine 1.3 mg/dL (0.7-1.3) 03/02/25 12:15
Calcium 9.7 mg/dl (8.4-10.2) 03/02/25 12:15
Total Bilirubin 1.2 mg/dl (0.2-1.3) 03/02/25 12:15
AST 31 U/L (17-59) 03/02/25 12:15
ALT 31 U/L (0-50) 03/02/25 12:15
Alkaline Phosphatase 56 U/L (38-126) 03/02/25 12:15
Lipase 53 U/L (23-300) 03/02/25 12:15
Prior GI Procedures:
04/29/2013 EGD: ([facility]) - Hiatus hernia.
- Z-line irregular,. This was biopsied.
- Gastric ulcers.
- Gastritis. This was biopsied.
- Gastritis. This was biopsied.
- Normal first part of the duodenum. Biopsy was
performed.
11/11/2016 colonoscopy: ([facility]) - Non-thrombosed external hemorrhoids found on perianal
exam.
- The examined portion of the ileum was normal.
- One 5 mm polyp in the cecum, removed with a hot snare.
Resected and retrieved. Injected. Clip was placed.
- One 2 mm polyp in the cecum, removed with a jumbo cold
forceps. Resected and retrieved.
- One 2 mm polyp in the ascending colon, removed with a
jumbo cold forceps. Resected and retrieved.
- One 50 mm polyp in the rectum, removed with a hot
snare. Resected and retrieved. Injected. Clips were
placed.
- Diverticulosis in the sigmoid colon and in the
descending colon.
- Internal hemorrhoids.
bx SS polyps, tubular adenoma rectal polyp with TV adenoma evidence of bleeding, adenomatous head clear of stalk margin
01/29/2017 sigmoidoscopy ([facility]): - Tight anal sphincter found on digital rectal exam.
- One 2 mm polyp in the rectum, removed with a jumbo
cold forceps. Resected and retrieved.
- A tattoo was seen in the rectum. The tattoo site
appeared normal.
- Internal hemorrhoids.
-Recommend repeat Sig in 2 years for surveillance
bx TA
Assessment / Plan
-
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
ED, fall with pneumothorax with admission in October. During that admission he was noted with coffee ground emesis. With improved symptoms he was sent up for outpatient EGD along with colonoscopy with hx polyps. He now presents with recurrent
vomiting coffee grounds. In review with family vomiting started to 4am on 03/02 with yellow debris on face but coffee ground in basin with about 4 episode of vomiting prior to admission. He denies any chronic vomiting issues. Pt also noted with
weight loss of about 20 lbs since last years. Per pt and family some diarrhea but odynophagia, dysphagia, GERD, abdominal pain, constipation or rectal bleeding. On admission noted with hbg 12.8 with drop from 14 range in November, glucose 499 BUN 38,
Na 131 with stable INR, platelets and albumin.
Impression:
recurrent coffee ground emesis
hx HH
Prior history of gastric ulcers (2012)
daily ETOH use
IDDM with elevated blood sugar on admission
recent wt loss
hyponatremia
admission in November with fall with right pneumothorax status post right chest tube
History of colon polyps, last procedure 2016
History of CVA on Plavix (presently on hold as due for colonoscopy next week)
other med problems:
cardiomyopathy
COPD
tobacco abuse
GERD
hypertension
hyperlipidemia
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
urinary retention
PLAN
Plan:
Etiology of coffee ground related to PUD, roberth ulcer with HH, gastritis, esophagitis, mass vs other -- gastroparesis in differential with prior HBG A1C 9.8 and FBS of 499 on admission
agree with PPI gtt
monitor for recurrent vomiting
trend hbg
plan for EGD in AM then timing for colonoscopy to follow (inpatient vs outpatient as planned for 03/06)
if work up neg consider CT for wt loss
ok for clear diet as tolerated
-Antiemetics for any nausea
cont plavix hold last dose 02/27
monitor for Alcohol/tobacco withdrawal
-
-
Thank you for consultation and allowing me to participate in the patient's care. Please call the animation director GI physician during the after hours with any questions or concerns.
--- NOTE | 2025-03-02 13:21 | HPS.HSE ---
Family Physician
-
Family Physician: Amelia Broussard
Chief Complaint
-
coffee ground emesis
History of Present Illness
74-year-old male with history of diabetes,, peptic ulcer disease, esophagitis, dyslipidemia, CHF presenting to the emergency department for 4 episodes of coffee-ground emesis since four o clock this morning. he had diarrhea yesterday. denied
abdominal pain. denied fever, chills,chest pain, sob. denied ENRIQUEZ, dizzy or syncope.denied dysuria or hematuria Patient is on Plavix, however stopped the Plavix last week in planning for the colonoscopy and endoscopy. patient noted elevated blood
sugar for past two days.
Brown stool on rectal, guaiac positive. He was initiated on Protonix drip. Received normal saline in ER. Admitted for further management
Medical History
Past Medical History
Past Medical History: Reports Other
Additional Past Medical History:
Dyslipidemia
Fatty liver
Colon polyps
Hypertension
Pneumonia
Coronary artery disease
Type 2 diabetes
Ischemic cardiomyopathy
CHF
COPD
Aortic valve stenosis
Past Surgical History: Reports Other
Additional Past Surgical History:
Tonsillectomy
Tarp
Social History
Tobacco: Smoker (6-10 cigarettes daily)
Alcohol: Daily (Couple beers daily)
Drug: None
Personal:
Living: With Family
Family History
Family History: Not pertinent
Allergies / Home Medications
Allergies reflects when Allergies were last updated in [facility].
Home Medications with original date entered in [facility]
Allergy/Medication List:
Allergies
Allergy/AdvReac Type Severity Reaction Status Date / Time
No Known Allergies Allergy Verified 03/02/25 11:09
Home Medications
clopidogrel 75 mg tablet 75 mg PO DAILY Blood Clot Prevention/Tx 05/26/23
atorvastatin 80 mg tablet 80 mg PO QPM High Cholesterol 08/19/23
ezetimibe 10 mg tablet 10 mg PO DAILY High Cholesterol 01/21/24
acetaminophen 500 mg tablet 1,000 mg DAILYPRN PRN mild pain 07/06/24
tamsulosin 0.4 mg capsule 0.4 mg PO DAILY Urinary Issue 11/16/24
dapagliflozin propanediol 10 mg tablet (Farxiga) 10 mg PO DAILY 03/02/25
enalapril maleate 5 mg tablet 5 mg PO BID Blood Pressure 03/02/25
finasteride 5 mg tablet 5 mg PO DAILY BPH 03/02/25
insulin NPH isoph U-100 human 100 unit/mL subcutaneous suspension (Humulin N NPH U-100 Insulin (isophane susp)) 16 unit SC QHS Diabetes 03/02/25
insulin NPH isoph U-100 human 100 unit/mL subcutaneous suspension (Humulin N NPH U-100 Insulin (isophane susp)) 26 unit SC DAILY Diabetes 03/02/25
pantoprazole 40 mg tablet,delayed release (Protonix) 40 mg PO DAILY Gastrointestinal Issue 03/02/25
Review of Systems
-
Constitutional: Reports No Symptoms
EENT: Reports No Symptoms
Respiratory: Reports No Symptoms
Cardiac: Reports No Symptoms
Abdomen/GI: Reports Vomiting (Black emesis)
: Reports No Symptoms
Musculoskeletal: Reports No Symptoms
Skin: Reports No Symptoms
Neurological: Reports No Symptoms
Endocrine: Reports No Symptoms
Hematologic/Lymphatic: Reports No Symptoms
Psych: Reports No Symptoms
Physical Exam
Vital Signs
Vital Signs
Temp Pulse Resp BP Pulse Ox
97.8 F 69 22 121/56 96
03/02/25 11:09 03/02/25 12:45 03/02/25 12:45 03/02/25 12:00 03/02/25 12:45
Physical Exam
General: Well Developed, Well Nourished and No Apparent Distress
HEENT: NormoCephalic, Moist mucous membranes and Atraumatic
Respiratory: Clear
Cardiac: S1/S2 and Regular Rhythm; No Murmur or Rub
GI: Soft, Non Tender, Non Distended and Normal Bowel Sounds; No Organomegaly
Rectal: Deferred by Provider
Musculoskeletal: No Clubbing, No Cyanosis and No Edema
Skin: No Rash
Neuro: AO x 3 and Nonfocal/grossly intact
Psych: Calm
Laboratory Results
-
03/02/25 12:15
03/02/25 12:15
Laboratory Results
PT 13.6 Sec (11.4-14.6) 03/02/25 12:15
INR 0.99 03/02/25 12:15
APTT 24.1 Sec (23.4-35.0) 03/02/25 12:15
Total Bilirubin 1.2 mg/dl (0.2-1.3) 03/02/25 12:15
AST 31 U/L (17-59) 03/02/25 12:15
ALT 31 U/L (0-50) 03/02/25 12:15
Alkaline Phosphatase 56 U/L (38-126) 03/02/25 12:15
Lipase 53 U/L (23-300) 03/02/25 12:15
Data Reviewed
-
Lab Data: Labs Reviewed by me
Impression/Plan
-
# Coffee-ground emesis likely upper GI bleed
# History of PUD and esophagitis
- Brown stool on rectal, guaiac positive
- Hemoglobin 12.8
- IV PPI
- Keep patient n.p.o.
- Continue to trend hemoglobin
- Transfuse if hemoglobin less than 7
- GI consulted
#Pseudohyponatremia
- Sodium 131 corrected sodium with elevated hyperglycemia is 141
# Type 2 diabetes with hyperglycemia
- Glucose 499
- Hold short acting will hold
- Sliding scale NPH
- Lantus 20 units at bedtime
-STATISTICAL GENETICIST DM consulted
# Left carotid artery stenosis -- asymptomatic
#Active smoker
-Denied Nicotine patch
#Right pontine CVA
-Plavix is on hold, statin continued
#Alcohol use disorder
-Alcohol protocol initiated
-Continue to monitor MSAs score
#Essential hypertension
-Enalapril continue with hold parameters
#Urinary retention secondary to BPH
-Continue tamsulosin
-Bladder scans protocol/monitor for urinary retention
-Finasteride tamsulosin continued
#Hypercholesterolemia
-Continue statin, Zetia
# GERD
- Pantoprazole continued
Code Status: Full code
[2025-03-02] MEDS: PROTONIX 100 IV (13:27)
[2025-03-02] MEDS: NSS 1000 IV (13:28)
--- NOTE | 2025-03-02 13:56 | W.PN.UPDATE ---
Update Note
Progress Note Update
This is an addendum to the H&P written by Daphne Thurston on 03/02/2025. �Patient seen and examined independently with WET [employer].
74-year-old male past medical history of upper GI bleeding, alcohol use disorder, type 2 diabetes, hypertension, GERD, peptic ulcer disease, right pontine stroke, COPD, cardiomyopathy, urinary retention likely from enlarged prostate,
hypercholesteremia, gait dysfunction, presenting with coughing and emesis. �Diarrhea yesterday.
Recently admitted in October for fall resulting in right pneumothorax with chest tube. �Was also found to have chronic small infarcts and left carotid artery stenosis. �Seen by vascular who recommend outpatient follow-up. �Neurology did not feel he
had carotid disease and thought he possibly had Parkinson disease or neuropathy. �He also had coffee-ground emesis at that time and GI recommended outpatient evaluation.
He was supposed to have EGD next week.
Labs show stable hemoglobin of 12.8.
Blood sugar 499.
Clears, NPO past midnight. Continue to hold plavix.� Protonix 40 IV twice daily. �GI consulted with plan for EGD. �Patient with history of labile blood sugar. �Will hold all NPH/Humulin products for now given n.p.o. status. �Reduce total insulin
coverage to Lantus 20 units at night with sliding scale. �asthma educator consulted.
[2025-03-02 14:01] LABS: Glucose - Point of Care 428 mg/dl (70-99)
[2025-03-02] MEDS: LANTUS 0.2 UNITS SC (14:38)
--- NOTE | 2025-03-02 15:00 | PN.DE.MGMTRT ---
Insulin Management
- -
03/02/2025: Diabetes Management Consult
74 year old male w/PMH: Cardiomyopathy, HTN, HLD, h/o CVA 2014, COPD, GERD w/gastric ulcers, daily alcohol use, tobacco use, colon polyps, urinary retention who presented to the ER with Diarrhea, coughing associated with coffee ground emesis. Pt is
well known to Diabetes team from his recent hospital visit in October, when he was hospitalized with pneumothorax. Pt awake, alert, oriented, sitting up in bed, offers no complaints, able to discuss diabetes care plan. His PCP Dr. Broussard manages
his diabetes
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 Last A1C was 9.8% in 10/2024, updated A1C pending. Cr 1.0, eGFR>60. States he has a working glucose meter and checks his blood sugars 4 times a day.
He was noted for hyperglycemia with a venous glucose level of 499 on admission and was ordered Lantus 20 units by the hospitalist, which was administered an hr ago with Lantus 20 units @ HS. Pt is ordered clear liquid diet, will be NPO after MN for
EGD tomorrow.
Will add moderate corrective insulin with meals.
Will closely follow and make further insulin adjustments if necessary.
Diabetes History
- -
Type of Diabetes: 2 requiring insulin
Pre-Admission Diabetes Regimen
03/02/25
12:15
Creatinine 1.3
Insulin Pump Settings
IP Diabetes Regimen
03/02/25 03/02/25
12:15 13:59
Glucose 499 H*
POC Glucose 428 H
Patient Education
[2025-03-02 15:16] LABS: APTT 24.4 Sec (23.4-35.0); INR 0.95; PT 13.2 Sec (11.4-14.6)
[2025-03-02 15:17] LABS: Glucose - Point of Care 385 mg/dl (70-99)
[2025-03-02] MEDS: NOVOLOG FLEXPEN-MODERATE RESISTANCE 9 UNITS SC (15:30)
[2025-03-02 15:34] LABS: GGTP 37 U/L (15-73); Phosphorus 3.4 mg/dl (2.5-4.5)
[2025-03-02 15:35] LABS: Alcohol None Detected
[2025-03-02 15:41] LABS: B-Hydroxybutyrate 2.72 mmol/L (0.02-0.27)
--- NOTE | 2025-03-02 15:49 | CM ---
CM reviewed chart and met with pt bedside in rm 436. Lives with his in multistory home, [address], 1st floor bath
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
Discussed daily alcohol use, states he drinks 2 beers daily. He declined [facility] referral. Pt aware he can speak to them anytime during his hospital stay.
PCP: Amelia Broussard
Pharmacy: [facility]
Plan: Anticipate dc home pending ongoing medical evaluation, watch for needs
[2025-03-02 16:10] LABS: Amphetamines Negative (Negative); Barbiturates Negative (Negative); Benzodiazepines Negative (Negative); Buprenorphine Negative (Negative); Cocaine Negative (Negative); Marijuana Negative (Negative); Methadone Negative (Negative); Methamphetamines Negative (Negative); Opiates Negative (Negative); Phencyclidine Negative (Negative); Tricyclic Antidepressants Negative (Negative)
[2025-03-02] MEDS: LIPITOR 80 MG PO (17:28)
[2025-03-02 18:06] LABS: Urine Albumin 1+ (Neg - Trace); Urine Bilirubin Negative (Negative); Urine Character Clear (Clear); Urine Color Yellow; Urine Glucose 4+ (Negative); Urine Ketone 3+ (Negative); Urine Leukocyte 2+ (Negative); Urine Nitrite Negative (Negative); Urine Occult Blood 1+ (Negative); Urine Urobilinogen Negative (Neg - 1+)
[2025-03-02 18:14] LABS: Urine Bacteria Few (Negative); Urine Red Blood Cell 0-2 /HPF (0-2); Urine Squamous Cell 0-2 /LPF (Few); Urine White Cell 50-60 /HPF (0-5); Urine Yeast Many (Negative)
[2025-03-02] MEDS: VASOTEC 5 MG PO (19:43)
[2025-03-02 21:46] LABS: Glucose - Point of Care 125 mg/dl (70-99)
[2025-03-03] VITALS (8 sets, daily range): BP systolic 20–135; BP diastolic 46–64; PULSE 60–88; BMI 18.8
[2025-03-03] MEDS: NOVOLOG FLEXPEN-MODERATE RESISTANCE SC ×3 (06:05→16:46)
[2025-03-03 06:08] LABS: Glucose - Point of Care 33 mg/dl (70-99)
[2025-03-03] MEDS: DEXTROSE 50% SYRINGE 12.5 GRAMS IV ×2 (06:10→08:46)
[2025-03-03 06:27] LABS: Glucose - Point of Care 117 mg/dl (70-99)
--- NOTE | 2025-03-03 07:53 | PN.DE.MGMTRT ---
Insulin Management
- -
03/03/2025: Diabetes Management Follow up
74 year old male w/PMH: Cardiomyopathy, HTN, HLD, h/o CVA 2014, COPD, GERD w/gastric ulcers, daily alcohol use, tobacco use, colon polyps, urinary retention who presented to the ER with Diarrhea, coughing associated with coffee ground emesis. Pt is
well known to Diabetes team from his recent hospital visit in October, when he was hospitalized with pneumothorax. 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 A1C is 9.4% Cr 1.0, eGFR>60.
States he has a working glucose meter and checks his blood sugars 4 times a day. His PCP Dr. Broussard manages his diabetes
Pt awake, alert, oriented, sitting up in bed, offers no complaints, able to discuss diabetes care plan.
Pt received Lantus 20 units @ 14:38 and 9 units of aspart @ 15:30 yesterday. Of note he did not eat much yesterday and has been NPO after MN for EGD today. Noted for an episode of hypoglycemia as low as 33 this morning, improved to 177 after
treatment.
Will switch insulin to 70/30 to start at dinner time. Start 20 units of 70/30 at dinner and 25 units in AM tomorrow with breakfast. Start moderate corrective insulin with meals. Will resume Farxiga 10mg daily, 1st dose tomorrow 03/04/25
Will closely follow and make further insulin adjustments if necessary. Please take note of pt's hx as a brittle diabetic. He will require close glucose monitoring.
Discussed with Nurse.
Diabetes History
- -
Type of Diabetes: 2 requiring insulin
Pre-Admission Diabetes Regimen
03/02/25
12:15
Creatinine 1.3
Insulin Pump Settings
IP Diabetes Regimen
03/02/25 03/02/25 03/02/25
12:15 13:59 15:15
Glucose 499 H*
POC Glucose 428 H 385 H
03/02/25 03/03/25 03/03/25
21:44 06:04 06:25
Glucose
POC Glucose 125 H 33 L* 117 H
Patient Education
[2025-03-03] MEDS: FOLVITE 1 MG PO (07:57)
[2025-03-03] MEDS: PROSCAR 5 MG PO (07:57)
[2025-03-03] MEDS: ZETIA 10 MG PO (07:57)
[2025-03-03] MEDS: FLOMAX 0.4 MG PO (07:57)
[2025-03-03] MEDS: VASOTEC 5 MG PO ×2 (07:57→20:00)
[2025-03-03] MEDS: PROTONIX IV 40 MG IV ×2 (07:58→20:00)
[2025-03-03] MEDS: NSS (PRESERVATIVE FREE) 10 ML IV ×2 (07:58→20:00)
[2025-03-03 08:13] LABS: Hematocrit 38.3 % (39.0-52.0); Hemoglobin 13.3 g/dL (13.0-18.0); Mean Corp Hgb Conc. 34.7 g/dL (33.0-37.0); Mean Corpuscular Hgb 31.2 pg (27.0-31.0); Mean Corpuscular Volume 89.9 fL (80.0-94.0); Mean Platelet Volume 9.5 fL (7.4-10.4); Platelet Count 222 10^3/uL (130-400); Red Blood Cell Count 4.26 10^6/uL (4.70-6.10); Red Cell Dist. Width 13.8 % (11.5-14.5); White Blood Cell Count 8.5 10^3/uL (4.8-10.8)
[2025-03-03 08:35] LABS: Glucose - Point of Care 71 mg/dl (70-99)
[2025-03-03 08:58] LABS: Blood Urea Nitrogen 32 mg/dl (9-20); Calcium 9.9 mg/dl (8.4-10.2); Carbon Dioxide 26 mmol/L (22-30); Chloride 107 mmol/L (98-107); Estimated Creatinine Clearance 48 ml/min; Glucose 76 mg/dl (70-99); Potassium 4.2 mmol/L (3.5-5.1); Sodium 141 mmol/L (135-145); eGFR > 60.00
[2025-03-03 09:01] LABS: Glycohemoglobin (HgbA1c) 9.4 % (4.0-5.6)
[2025-03-03 09:31] LABS: Glucose - Point of Care 119 mg/dl (70-99)
--- NOTE | 2025-03-03 09:49 | W.PN.HOSP.TC ---
Addendum entered and electronically signed by Stacey Farooq MD 03/03/25 16:41:
# GI bleed may be associated with/exacerbated by Plavix use
# Underweight
Original Note:
Today's Communication/Plan
-
see A/P
Assessment / Plan
Assessment / Plan
HPI: 74-year-old male past medical history of upper GI bleeding, alcohol use disorder, type 2 diabetes, hypertension, GERD, peptic ulcer disease, right pontine stroke, COPD, cardiomyopathy, urinary retention likely from enlarged prostate,
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
Recently admitted in October for fall resulting in right pneumothorax with chest tube.�Was also found to have chronic small infarcts and left carotid artery stenosis. �Seen by vascular who recommended outpatient follow-up. Neurology did not feel he
had carotid disease and thought he possibly had Parkinson disease or neuropathy. �He also had coffee-ground emesis at that time and GI recommended outpatient evaluation.
A/P:
# GIB/coffee-ground emesis, likely upper GI bleed
# History of PUD and esophagitis
Hemoglobin stable, VSS, cont to monitor
Cont IV PPI BID
Hold THERAPY ADMINISTRATIVE ASSISTANT Plavix
Keep NPO, GI plan for EGD
# Pseudohyponatremia, resolved
# Type 2 diabetes with hyperglycemia
s/p Lantus 20 units HS with resultant hypoglycemia
DM MERCHANDISE EXECUTION LEADER consulted,
added moderate corrective insulin with meals.
Monitor BG
# Left carotid artery stenosis, asymptomatic
# Active smoker
declined Nicotine patch
# Right pontine CVA
Plavix is on hold, statin continued
# Alcohol use disorder
Alcohol protocol initiated
Continue to monitor MSAS score
# Essential hypertension
Enalapril continue with hold parameters
# Urinary retention secondary to BPH
Continue tamsulosin
Bladder scans protocol/monitor for urinary retention
Finasteride tamsulosin continued
# Hypercholesterolemia
Continue statin, Zetia
# GERD
Pantoprazole continued
Code Status: Full code
DW RN
Anticipated Discharge: 24 - 48 hours
Subjective/Interval History
-
Date of Service: March 03, 2025
Objective Data
-
Labs:
Laboratory Results
03/03/25
07:37
WBC 8.5
Hgb 13.3
Hct 38.3 L
Plt Count 222
Sodium 141 D
Potassium 4.2
Chloride 107
Carbon Dioxide 26
BUN 32 H
Creatinine 1.1
Glucose 76
Calcium 9.9
Vital Signs:
Vital Signs
Temp Pulse Resp BP Pulse Ox
36.7 C 61 19 126/51 99
03/03/25 07:00 03/03/25 07:00 03/03/25 07:00 03/03/25 07:00 03/03/25 07:00
I&O
03/02/25 03/03/25 03/04/25
06:59 06:59 06:59
Intake Total 240 / 240
Balance 240 / 240
Review of Systems
-
History Source: Patient
All other systems: Reviewed and negative
Physical Exam
-
General: Well Developed, Well Nourished, No Apparent Distress, Comfortable and Conversant
HEENT: Normocephalic and Atraumatic
Respiratory: Clear to Auscultation and Non Labored Respirations; Negative Accessory Resp Muscle Use
Cardiac: Regular Rhythm and S1/S2; Negative Murmur
GI: Soft, Nontender and Nondistended
Neuro: Awake and Alert
Psych: Calm and Intact Judgement/Insight (somewhat)
Data Reviewed
-
Labs: Labs Reviewed by me
[2025-03-03 10:39] LABS: Glucose - Point of Care 110 mg/dl (70-99)
[2025-03-03 12:11] LABS: Glucose - Point of Care 119 mg/dl (70-99)
[2025-03-03] MEDS: OMNIPAQUE 50 ML PO (13:00)
--- NOTE | 2025-03-03 13:23 | CM ---
Chart reviewed and embedded case manager met with patient and spouse at bedside, [facility] offered to patient however patient declined.
Plan; Home when stable.
--- NOTE | 2025-03-03 16:13 | PN.CDI ---
CDI
- -
CDI:
Physician Documentation Request
Admit Date: 03/02/25 14:04
Dear Doctor Oseas,
Patient admitted with GI bleed.
03/03 PN, 'GIB/coffee-ground emesis, likely upper GI bleed....Hold HVAC INSTALLER Plavix.'
Please clarify the likely relationship between these conditions:
Yes, GI bleed is associated with/exacerbated by Plavix.
No, GI bleed is not associated with/ exacerbated by Plavix but it is due to ___. (Please specify)
Other
Use of terms such as suspected, likely, concern for, or probable (associated with a specific diagnosis that is being evaluated, monitored, or treated as if it exists) are acceptable and can be coded in the inpatient setting, when documented at the
time of discharge.
Thank you,
Amelia NAIR,RN,CCDS
CDI Specialist
Available via [place] text
Please use your independent medical judgment in providing your response.
--- NOTE | 2025-03-03 16:20 | PN.CDI ---
CDI
- -
CDI:
Physician Documentation Request
Admit Date: 03/02/25 14:04
Dear Doctor Oseas,
Patient admitted with GI bleed.
Please review the following and provide your response in the progress notes.
Clinical Indicators:
Height: 5' 9'
Weight: 127 lb 3 oz
BMI: 18.8
Please provide an associated diagnosis related to the abnormal BMI, such as:
Underweight
Cachectic
Anorexia
Other
BMI < or = to 19
Underweight
Weight Loss
Cachectic
Anorexia
Use of terms such as suspected, likely, concern for, or probable (associated with a specific diagnosis that is being evaluated, monitored, or treated as if it exists) are acceptable and can be coded in the inpatient setting, when documented at the
time of discharge.
Thank you,
Amelia NAIR,RN,CCDS
CDI Specialist
Available via [place] text
Please use your independent medical judgment in providing your response.
[2025-03-03 16:41] LABS: Glucose - Point of Care 70 mg/dl (70-99)
[2025-03-03] MEDS: HUMULIN N KWIKPEN 20 UNITS SC (18:11)
[2025-03-03] MEDS: LIPITOR 80 MG PO (18:12)
[2025-03-03 21:43] LABS: Glucose - Point of Care 204 mg/dl (70-99)
[2025-03-04 06:00] VITALS: BMI 18.5
[2025-03-04 07:00] VITALS: BP 146/62
[2025-03-04 07:09] LABS: Hematocrit 35.6 % (39.0-52.0); Hemoglobin 12.5 g/dL (13.0-18.0); Mean Corp Hgb Conc. 35.1 g/dL (33.0-37.0); Mean Corpuscular Hgb 31.5 pg (27.0-31.0); Mean Corpuscular Volume 89.7 fL (80.0-94.0); Mean Platelet Volume 9.6 fL (7.4-10.4); Platelet Count 193 10^3/uL (130-400); Red Blood Cell Count 3.97 10^6/uL (4.70-6.10); Red Cell Dist. Width 13.9 % (11.5-14.5); White Blood Cell Count 7.4 10^3/uL (4.8-10.8)
[2025-03-04 07:22] LABS: Blood Urea Nitrogen 26 mg/dl (9-20); Calcium 9.4 mg/dl (8.4-10.2); Carbon Dioxide 26 mmol/L (22-30); Chloride 108 mmol/L (98-107); Estimated Creatinine Clearance 52 ml/min; Glucose 175 mg/dl (70-99); Magnesium 1.8 mg/dl (1.6-2.3); Potassium 4.2 mmol/L (3.5-5.1); Sodium 138 mmol/L (135-145); eGFR > 60.00
[2025-03-04 07:28] LABS: Glucose - Point of Care 183 mg/dl (70-99)
[2025-03-04] MEDS: FARXIGA 10 MG PO (08:25)
[2025-03-04] MEDS: FLOMAX 0.4 MG PO (08:25)
[2025-03-04] MEDS: VASOTEC 5 MG PO ×2 (08:25→20:05)
[2025-03-04] MEDS: FOLVITE 1 MG PO (08:25)
[2025-03-04] MEDS: ZETIA 10 MG PO (08:26)
[2025-03-04] MEDS: PROSCAR 5 MG PO (08:26)
[2025-03-04] MEDS: NSS (PRESERVATIVE FREE) 10 ML IV (08:27)
[2025-03-04] MEDS: NOVOLOG FLEXPEN-MODERATE RESISTANCE 1 UNITS SC ×2 (08:27→12:58)
[2025-03-04] MEDS: PROTONIX IV 40 MG IV (08:27)
[2025-03-04] MEDS: HUMULIN N KWIKPEN 25 UNITS SC (08:28)
--- NOTE | 2025-03-04 09:39 | W.PN.HOSP.TC ---
Today's Communication/Plan
-
see A/P
Assessment / Plan
Assessment / Plan
HPI: 74-year-old male past medical history of upper GI bleeding, alcohol use disorder, type 2 diabetes, hypertension, GERD, peptic ulcer disease, right pontine stroke, COPD, cardiomyopathy, urinary retention likely from enlarged prostate,
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
Recently admitted in October for fall resulting in right pneumothorax with chest tube.�Was also found to have chronic small infarcts and left carotid artery stenosis. �Seen by vascular who recommended outpatient follow-up. Neurology did not feel he
had carotid disease and thought he possibly had Parkinson disease or neuropathy. �He also had coffee-ground emesis at that time and GI recommended outpatient evaluation.
A/P:
# GIB/coffee-ground emesis,
# History of PUD and esophagitis
Hemoglobin stable, VSS, cont to monitor
Hold BUTTON MAKER AND INSTALLER Plavix
s/p EGD 03/03: unrevealing, No gross lesions in the entire esophagus. Z-line irregular, 38 cm from the incisors. Biopsied. A ?cardia polyp. Biopsied. Erythematous mucosa in the antrum. Biopsied.
Follow pathology results.
Cont PPI changed to daily
CT AP was checked for weight loss, limited study but overall unrevealing.
For C scope Tuesday 03/06
# Pseudohyponatremia, resolved
# IDDM
resumed NPH 25/20 per DM PLANT ENGINEERING MANAGER
Cont ISS, monitor BG
# Left carotid artery stenosis, asymptomatic
# Active smoker
declined Nicotine patch
# Right pontine CVA
Plavix is on hold, statin continued
# Alcohol use disorder
Alcohol protocol initiated
Continue to monitor MSAS score
# Essential hypertension
Enalapril continue with hold parameters
# Urinary retention secondary to BPH
Continue tamsulosin
Bladder scans protocol/monitor for urinary retention
Finasteride tamsulosin continued
# Hypercholesterolemia
Continue statin, Zetia
# GERD
Pantoprazole continued
Code Status: Full code
DW GI
Anticipated Discharge: > 48 hours
Subjective/Interval History
-
Date of Service: March 04, 2025
Objective Data
-
Labs:
Laboratory Results
03/04/25
06:10
WBC 7.4
Hgb 12.5 L
Hct 35.6 L
Plt Count 193
Sodium 138
Potassium 4.2
Chloride 108 H
Carbon Dioxide 26
BUN 26 H
Creatinine 1.0
Glucose 175 H
Calcium 9.4
Vital Signs:
Vital Signs
Temp Pulse Resp BP Pulse Ox
36.6 C 60 16 146/62 96
03/04/25 07:00 03/04/25 07:00 03/04/25 07:00 03/04/25 07:00 03/04/25 07:00
I&O
03/03/25 03/04/25 03/05/25
06:59 06:59 06:59
Intake Total 240 / 240 700 / 700
Balance 240 / 240 700 / 700
Review of Systems
-
History Source: Patient
All other systems: Reviewed and negative
Physical Exam
-
General: Well Developed, Well Nourished, No Apparent Distress, Comfortable and Conversant
HEENT: Normocephalic and Atraumatic
Respiratory: Clear to Auscultation and Non Labored Respirations; Negative Accessory Resp Muscle Use
Cardiac: Regular Rhythm and S1/S2; Negative Murmur
GI: Soft, Nontender and Nondistended
Neuro: Awake and Alert
Psych: Calm and Intact Judgement/Insight (somewhat)
Data Reviewed
-
Labs: Labs Reviewed by me
--- NOTE | 2025-03-04 10:56 | W.PN.GI.CBS2 ---
Today's Communication / Plan
-
Await pathology results.
- Use Protonix (pantoprazole) 40 mg PO daily.
- Telephone GI clinic for pathology results in 2 weeks.
- Reviewed CT scan abdomen/pelvis with contrast -noted read regardng possible gastric mass but EGD without any obvious mass.
- Plan for colonoscopy thursday
- Avoid NSAID's.
cont plavix hold last dose 02/27
monitor for Alcohol/tobacco withdrawal
Assessment / Plan
-
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
ED, fall with pneumothorax with admission in October. During that admission he was noted with coffee ground emesis. With improved symptoms he was sent up for outpatient EGD along with colonoscopy with hx polyps. He now presents with recurrent
vomiting coffee grounds. In review with family vomiting started to 4am on 03/02 with yellow debris on face but coffee ground in basin with about 4 episode of vomiting prior to admission. He denies any chronic vomiting issues. Pt also noted with
weight loss of about 20 lbs since last years. Per pt and family some diarrhea but odynophagia, dysphagia, GERD, abdominal pain, constipation or rectal bleeding. On admission noted with hbg 12.8 with drop from 14 range in November, glucose 499 BUN 38,
Na 131 with stable INR, platelets and albumin.
Impression:
recurrent coffee ground emesis
hx HH
Prior history of gastric ulcers (2012)
daily ETOH use
IDDM with elevated blood sugar on admission
recent wt loss
hyponatremia
admission in November with fall with right pneumothorax status post right chest tube
History of colon polyps, last procedure 2016
History of CVA on Plavix (presently on hold as due for colonoscopy next week)
other med problems:
cardiomyopathy
COPD
tobacco abuse
GERD
hypertension
hyperlipidemia
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
urinary retention
03/03/EGD- - No gross lesions in the entire esophagus.Z-line irregular, 38 cm from the incisors. Biopsied.4 cm hiatal hernia.
- A ? cardia polyp. Biopsied. Erythematous mucosa in the antrum. Biopsied. Normal duodenum.
PLAN
Await pathology results.
- Use Protonix (pantoprazole) 40 mg PO daily.
- Telephone GI clinic for pathology results in 2 weeks.
- Reviewed CT scan abdomen/pelvis with contrast -noted read regardng possible gastric mass but EGD without any obvious mass.
- Plan for colonoscopy thursday
- Avoid NSAID's.
cont plavix hold last dose 02/27
monitor for Alcohol/tobacco withdrawal
Subjective
Subjective
Date of Service: March 04, 2025
Patient denies any abdominal pain, nausea or vomiting. No bowel movement yet. Tolerating low residue diet.
Objective
Data Reviewed
Laboratory Data:
Laboratory Results
03/04/25 06:10
03/04/25 06:10
Laboratory Results
PT 13.2 Sec (11.4-14.6) 03/02/25 14:53
INR 0.95 03/02/25 14:53
APTT 24.4 Sec (23.4-35.0) 03/02/25 14:53
Phosphorus 3.4 mg/dl (2.5-4.5) 03/02/25 14:53
Magnesium 1.8 mg/dl (1.6-2.3) 03/04/25 06:10
Total Bilirubin 1.2 mg/dl (0.2-1.3) 03/02/25 12:15
AST 31 U/L (17-59) 03/02/25 12:15
ALT 31 U/L (0-50) 03/02/25 12:15
Alkaline Phosphatase 56 U/L (38-126) 03/02/25 12:15
Lipase 53 U/L (23-300) 03/02/25 12:15
Vital Signs and I&O:
Vital Signs
Temp Pulse Resp BP Pulse Ox
97.9 F 60 16 146/62 96
03/04/25 07:00 03/04/25 07:00 03/04/25 07:00 03/04/25 07:00 03/04/25 07:00
I&O
03/03/25 03/04/25 03/05/25
06:59 06:59 06:59
Intake Total 240 / 240 700 / 700
Balance 240 / 240 700 / 700
Physical Exam
Physical Exam
GI: Soft, Non Distended and Non Tender
[2025-03-04 11:00] LABS: Glucose - Point of Care 161 mg/dl (70-99)
[2025-03-04 15:36] VITALS: BP 117/57
[2025-03-04 16:39] LABS: Glucose - Point of Care 233 mg/dl (70-99)
[2025-03-04] MEDS: HUMULIN N KWIKPEN 20 UNITS SC (18:21)
[2025-03-04] MEDS: LIPITOR 80 MG PO (18:21)
[2025-03-04] MEDS: NOVOLOG FLEXPEN-MODERATE RESISTANCE 3 UNITS SC (18:22)
[2025-03-04 21:40] LABS: Glucose - Point of Care 262 mg/dl (70-99)
[2025-03-04 23:18] VITALS: BP 110/50
[2025-03-05 05:30] VITALS: BMI 18.4
[2025-03-05 06:24] LABS: Hematocrit 37.4 % (39.0-52.0); Hemoglobin 12.9 g/dL (13.0-18.0); Mean Corp Hgb Conc. 34.5 g/dL (33.0-37.0); Mean Corpuscular Hgb 30.9 pg (27.0-31.0); Mean Corpuscular Volume 89.5 fL (80.0-94.0); Mean Platelet Volume 9.8 fL (7.4-10.4); Platelet Count 188 10^3/uL (130-400); Red Blood Cell Count 4.18 10^6/uL (4.70-6.10); Red Cell Dist. Width 13.8 % (11.5-14.5); White Blood Cell Count 6.8 10^3/uL (4.8-10.8)
[2025-03-05 06:52] LABS: Blood Urea Nitrogen 27 mg/dl (9-20); Calcium 9.3 mg/dl (8.4-10.2); Carbon Dioxide 27 mmol/L (22-30); Chloride 109 mmol/L (98-107); Estimated Creatinine Clearance 52 ml/min; Glucose 48 mg/dl (70-99); Potassium 3.9 mmol/L (3.5-5.1); Sodium 142 mmol/L (135-145); eGFR > 60.00
[2025-03-05 06:59] LABS: Glucose - Point of Care 59 mg/dl (70-99)
[2025-03-05 07:21] LABS: Glucose - Point of Care 118 mg/dl (70-99)
[2025-03-05] MEDS: NOVOLOG FLEXPEN-MODERATE RESISTANCE SC (07:31)
[2025-03-05 08:00] VITALS: BP 131/56
[2025-03-05] MEDS: ZETIA 10 MG PO (09:01)
[2025-03-05] MEDS: FARXIGA 10 MG PO (09:01)
[2025-03-05] MEDS: VASOTEC 5 MG PO ×2 (09:01→20:39)
[2025-03-05] MEDS: NSS (PRESERVATIVE FREE) 10 ML IV (09:01)
[2025-03-05] MEDS: FOLVITE PO ×2 (09:01→09:16)
[2025-03-05] MEDS: PROSCAR 5 MG PO (09:01)
[2025-03-05] MEDS: FLOMAX 0.4 MG PO (09:01)
[2025-03-05] MEDS: PROTONIX IV 40 MG IV (09:02)
--- NOTE | 2025-03-05 09:52 | W.PN.GI.CBS2 ---
Today's Communication / Plan
-
Await pathology results.
- Use Protonix (pantoprazole) 40 mg PO daily.
- Telephone GI clinic for pathology results in 2 weeks.
- Reviewed CT scan abdomen/pelvis with contrast -noted read regardng possible gastric mass but EGD without any obvious mass.
- Plan for colonoscopy tomorrow
- Avoid NSAID's.
cont plavix hold last dose 02/27
monitor for Alcohol/tobacco withdrawal
Assessment / Plan
-
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
ED, fall with pneumothorax with admission in October. During that admission he was noted with coffee ground emesis. With improved symptoms he was sent up for outpatient EGD along with colonoscopy with hx polyps. He now presents with recurrent
vomiting coffee grounds. In review with family vomiting started to 4am on 03/02 with yellow debris on face but coffee ground in basin with about 4 episode of vomiting prior to admission. He denies any chronic vomiting issues. Pt also noted with
weight loss of about 20 lbs since last years. Per pt and family some diarrhea but odynophagia, dysphagia, GERD, abdominal pain, constipation or rectal bleeding. On admission noted with hbg 12.8 with drop from 14 range in November, glucose 499 BUN 38,
Na 131 with stable INR, platelets and albumin.
Impression:
recurrent coffee ground emesis
hx HH
Prior history of gastric ulcers (2012)
daily ETOH use
IDDM with elevated blood sugar on admission
recent wt loss
hyponatremia
admission in November with fall with right pneumothorax status post right chest tube
History of colon polyps, last procedure 2016
History of CVA on Plavix (presently on hold as due for colonoscopy next week)
other med problems:
cardiomyopathy
COPD
tobacco abuse
GERD
hypertension
hyperlipidemia
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
urinary retention
03/03/EGD- - No gross lesions in the entire esophagus.Z-line irregular, 38 cm from the incisors. Biopsied.4 cm hiatal hernia.
- A ? cardia polyp. Biopsied. Erythematous mucosa in the antrum. Biopsied. Normal duodenum.
PLAN
Await pathology results.
- Use Protonix (pantoprazole) 40 mg PO daily.
- Telephone GI clinic for pathology results in 2 weeks.
- Reviewed CT scan abdomen/pelvis with contrast -noted read regardng possible gastric mass but EGD without any obvious mass.
- Plan for colonoscopy tomorrow
- Avoid NSAID's.
cont plavix hold last dose 02/27
monitor for Alcohol/tobacco withdrawal
Subjective
Subjective
Date of Service: March 05, 2025
No events overnight
Objective
Data Reviewed
Laboratory Data:
Laboratory Results
03/05/25 05:51
03/05/25 05:51
Laboratory Results
PT 13.2 Sec (11.4-14.6) 03/02/25 14:53
INR 0.95 03/02/25 14:53
APTT 24.4 Sec (23.4-35.0) 03/02/25 14:53
Phosphorus 3.4 mg/dl (2.5-4.5) 03/02/25 14:53
Magnesium 1.8 mg/dl (1.6-2.3) 03/04/25 06:10
Total Bilirubin 1.2 mg/dl (0.2-1.3) 03/02/25 12:15
AST 31 U/L (17-59) 03/02/25 12:15
ALT 31 U/L (0-50) 03/02/25 12:15
Alkaline Phosphatase 56 U/L (38-126) 03/02/25 12:15
Lipase 53 U/L (23-300) 03/02/25 12:15
Vital Signs and I&O:
Vital Signs
Temp Pulse Resp BP Pulse Ox
97.9 F 64 16 131/56 100
03/05/25 08:00 03/05/25 08:00 03/05/25 08:00 03/05/25 08:00 03/05/25 08:00
I&O
03/04/25 03/05/25 03/06/25
06:59 06:59 06:59
Intake Total 700 / 700 700 / 700
Balance 700 / 700 700 / 700
Physical Exam
Physical Exam
GI: Soft, Non Distended and Non Tender
--- NOTE | 2025-03-05 10:31 | W.PN.HOSP.TC ---
Today's Communication/Plan
-
see A/P
Assessment / Plan
Assessment / Plan
HPI: 74-year-old male past medical history of upper GI bleeding, alcohol use disorder, type 2 diabetes, hypertension, GERD, peptic ulcer disease, right pontine stroke, COPD, cardiomyopathy, urinary retention likely from enlarged prostate,
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
Recently admitted in October for fall resulting in right pneumothorax with chest tube.�Was also found to have chronic small infarcts and left carotid artery stenosis. �Seen by vascular who recommended outpatient follow-up. Neurology did not feel he
had carotid disease and thought he possibly had Parkinson disease or neuropathy. �He also had coffee-ground emesis at that time and GI recommended outpatient evaluation.
A/P:
# GIB/coffee-ground emesis,
# History of PUD and esophagitis
Hemoglobin stable, VSS, cont to monitor
Hold MANAGER METROLOGY Plavix
s/p EGD 03/03: unrevealing, No gross lesions in the entire esophagus. Z-line irregular, 38 cm from the incisors. Biopsied. A ?cardia polyp. Biopsied. Erythematous mucosa in the antrum. Biopsied.
Follow pathology results.
Cont PPI changed to daily
CT AP was checked for weight loss, limited study but overall unrevealing.
For C scope Tuesday 03/06
# Pseudohyponatremia, resolved
# IDDM
Hypoglycemia noted
stop NPH 25 units, reduce evening dose to 5 units HS
Discussed basal bolus regimen with pt, he declined injection 4 times a day and wants to cont with only 2 injections a day
Cont ISS, monitor BG
# Left carotid artery stenosis, asymptomatic
# Active smoker
declined Nicotine patch
# Right pontine CVA
Plavix is on hold, statin continued
# Alcohol use disorder
Alcohol protocol initiated
Continue to monitor MSAS score
# Essential hypertension
Enalapril continue with hold parameters
# Urinary retention secondary to BPH
Continue tamsulosin
Bladder scans protocol/monitor for urinary retention
Finasteride tamsulosin continued
# Hypercholesterolemia
Continue statin, Zetia
# GERD
Pantoprazole continued
Code Status: Full code
DW RN
Anticipated Discharge: Within 24 hours
Subjective/Interval History
-
Date of Service: March 05, 2025
Objective Data
-
Labs:
Laboratory Results
03/05/25
05:51
WBC 6.8
Hgb 12.9 L
Hct 37.4 L
Plt Count 188
Sodium 142
Potassium 3.9
Chloride 109 H
Carbon Dioxide 27
BUN 27 H
Creatinine 1.0
Glucose 48 L*
Calcium 9.3
Vital Signs:
Vital Signs
Temp Pulse Resp BP Pulse Ox
36.6 C 64 16 131/56 100
03/05/25 08:00 03/05/25 08:00 03/05/25 08:00 03/05/25 08:00 03/05/25 08:00
I&O
03/04/25 03/05/25 03/06/25
06:59 06:59 06:59
Intake Total 700 / 700 700 / 700
Balance 700 / 700 700 / 700
Review of Systems
-
History Source: Patient
All other systems: Reviewed and negative
Physical Exam
-
General: Well Developed, Well Nourished, No Apparent Distress, Comfortable and Conversant
HEENT: Normocephalic and Atraumatic
Respiratory: Clear to Auscultation and Non Labored Respirations; Negative Accessory Resp Muscle Use
Cardiac: Regular Rhythm and S1/S2; Negative Murmur
GI: Soft, Nontender and Nondistended
Neuro: Awake and Alert
Psych: Calm and Intact Judgement/Insight (somewhat)
Data Reviewed
-
Labs: Labs Reviewed by me
[2025-03-05 11:11] LABS: Glucose - Point of Care 255 mg/dl (70-99)
[2025-03-05] MEDS: NOVOLOG FLEXPEN-MODERATE RESISTANCE 5 UNITS SC ×2 (11:17→17:45)
[2025-03-05 16:00] VITALS: BP 105/55
[2025-03-05] MEDS: LIPITOR 80 MG PO (17:45)
[2025-03-05] MEDS: GAVILAX 238 GM PO (17:45)
[2025-03-05] MEDS: HUMULIN N KWIKPEN 5 UNITS SC (17:46)
[2025-03-05 19:15] LABS: Glucose - Point of Care 397 mg/dl (70-99)
[2025-03-05] MEDS: VITAMIN B1 PO (20:32)
[2025-03-05 22:13] LABS: Glucose - Point of Care 334 mg/dl (70-99)
[2025-03-06 00:06] VITALS: BP 152/71
[2025-03-06 04:13] LABS: Glucose - Point of Care 216 mg/dl (70-99)
[2025-03-06 05:38] VITALS: BMI 18.2
[2025-03-06] MEDS: GAVILAX 125 GM PO (05:55)
[2025-03-06 06:27] LABS: Hematocrit 38.3 % (39.0-52.0); Hemoglobin 13.3 g/dL (13.0-18.0); Mean Corp Hgb Conc. 34.7 g/dL (33.0-37.0); Mean Corpuscular Hgb 31.2 pg (27.0-31.0); Mean Corpuscular Volume 89.9 fL (80.0-94.0); Mean Platelet Volume 9.9 fL (7.4-10.4); Platelet Count 178 10^3/uL (130-400); Red Blood Cell Count 4.26 10^6/uL (4.70-6.10); Red Cell Dist. Width 13.8 % (11.5-14.5); White Blood Cell Count 6.3 10^3/uL (4.8-10.8)
[2025-03-06 06:47] LABS: Blood Urea Nitrogen 21 mg/dl (9-20); Calcium 9.4 mg/dl (8.4-10.2); Carbon Dioxide 27 mmol/L (22-30); Chloride 105 mmol/L (98-107); Estimated Creatinine Clearance 51 ml/min; Glucose 250 mg/dl (70-99); Potassium 4.4 mmol/L (3.5-5.1); Sodium 139 mmol/L (135-145); eGFR > 60.00
[2025-03-06 07:00] VITALS: BP 164/73
--- NOTE | 2025-03-06 07:07 | PN.DE.MGMTRT ---
Insulin Management
- -
03/06/2025: Diabetes Management Follow up
Patient admitted 03/02 with diarrhea, coughing associated with coffee ground emesis. PMH: Cardiomyopathy, HTN, HLD, h/o CVA 2014, COPD, GERD w/gastric ulcers, daily alcohol use, tobacco use, colon polyps, urinary retention. Pt is well known to
Diabetes team from his recent hospital visit in October, when he was hospitalized with pneumothorax. States He was taking Farxiga 10mg daily, NPH 25 units daily in AM and 20 units in PM and Humalog SS [employer]. A1C is 9.4% Cr 1.0, eGFR>60. States he has
a working glucose meter and checks his blood sugars 4 times a day. His PCP Dr. Broussard manages his diabetes
Pt awake, alert, oriented, sitting up in bed, offers no complaints, able to discuss diabetes care plan.
Patient has been receiving NPH 5 units BID, glucose range 216 to 334. Farxiga 10 daily.
Patient prefers current insulin.
For discharge.
Discussed with Nurse.
Diabetes History
- -
Type of Diabetes: 2 requiring insulin
Pre-Admission Diabetes Regimen
03/06/25
05:50
Creatinine 1.0
Lab Results
Hemoglobin A1c 9.4 % (4.0-5.6) H 03/02/25 12:15
Insulin Pump Settings
IP Diabetes Regimen
03/05/25 03/05/25 03/05/25
07:20 11:09 19:14
Glucose
POC Glucose 118 H 255 H 397 H
03/05/25 03/06/25 03/06/25
22:09 04:11 05:50
Glucose 250 H
POC Glucose 334 H 216 H
Patient Education
[2025-03-06] MEDS: HUMULIN N KWIKPEN 5 UNITS SC (07:56)
[2025-03-06 08:05] LABS: Glucose - Point of Care 282 mg/dl (70-99)
[2025-03-06] MEDS: NOVOLOG FLEXPEN-MODERATE RESISTANCE 5 UNITS SC (08:05)
[2025-03-06 10:31] VITALS: BP 104/39; BP 164/73
--- NOTE | 2025-03-06 10:43 | W.PN.HOSP.TC ---
Addendum entered and electronically signed by Stacey Farooq MD 03/06/25 12:20:
total DC time 40 min
Original Note:
Today's Communication/Plan
-
see A/P
Assessment / Plan
Assessment / Plan
HPI: 74-year-old male past medical history of upper GI bleeding, alcohol use disorder, type 2 diabetes, hypertension, GERD, peptic ulcer disease, right pontine stroke, COPD, cardiomyopathy, urinary retention likely from enlarged prostate,
hypercholesteremia, gait dysfunction; presented with coughing and emesis, with diarrhea the day DIAGNOSTIC TECH.
Recently admitted in October for fall resulting in right pneumothorax with chest tube.�Was also found to have chronic small infarcts and left carotid artery stenosis. �Seen by vascular who recommended outpatient follow-up. Neurology did not feel he
had carotid disease and thought he possibly had Parkinson disease or neuropathy. �He also had coffee-ground emesis at that time and GI recommended outpatient evaluation.
A/P:
# GIB/coffee-ground emesis,
# History of PUD and esophagitis
Hemoglobin stable, VSS, cont to monitor
Hold DIAGNOSTIC TECH Plavix
s/p EGD 03/03: unrevealing, No gross lesions in the entire esophagus. Z-line irregular, 38 cm from the incisors. Biopsied. A ?cardia polyp. Biopsied. Erythematous mucosa in the antrum. Biopsied.
Follow pathology results.
Cont PPI changed to daily
CT AP was checked for weight loss, limited study but overall unrevealing.
s/p C scope 03/06, also unrevealing: Tortuous colon. Stricture in the recto-sigmoid colon. Diverticulosis in the recto-sigmoid colon, in the sigmoid colon and in the descending colon. A tattoo was seen in the recto-sigmoid colon. The tattoo site
appeared normal. No specimens collected.
GI recc to repeat colonoscopy in 5 years for surveillance.
of note, pt was put under general anesthesia for airway protection during C scope for concern of aspiration.
Was started with Zosyn for concern of aspiration pneumonia
pt adamant about DC today, OK to DC with oral Abx Augmentin x5 days for aspiration pneumonia coverage
OP small bowel capsule study.
# Pseudohyponatremia, resolved
# IDDM
Hypoglycemia noted
anticipate pt will liberalize diet following DC, hence can return back to home insulin 70/30 following DC
# Left carotid artery stenosis, asymptomatic
# Active smoker
declined Nicotine patch
# Right pontine CVA
Plavix is on hold, statin continued
# Alcohol use disorder
Alcohol protocol initiated
Continue to monitor MSAS score
# Essential hypertension
Enalapril continue with hold parameters
# Urinary retention secondary to BPH
Continue tamsulosin
Bladder scans protocol/monitor for urinary retention
Finasteride tamsulosin continued
# Hypercholesterolemia
Continue statin, Zetia
# GERD
Pantoprazole continued
Code Status: Full code
DW GI Dr Andre
Anticipated Discharge: Today
Subjective/Interval History
-
Date of Service: March 06, 2025
Objective Data
-
Labs:
Laboratory Results
03/06/25
05:50
WBC 6.3
Hgb 13.3
Hct 38.3 L
Plt Count 178
Sodium 139
Potassium 4.4
Chloride 105
Carbon Dioxide 27
BUN 21 H
Creatinine 1.0
Glucose 250 H
Calcium 9.4
Vital Signs:
Vital Signs
Temp Pulse Resp BP Pulse Ox
36.5 C 60 18 164/73 96
03/06/25 07:00 03/06/25 07:00 03/06/25 07:00 03/06/25 07:00 03/06/25 07:00
I&O
03/05/25 03/06/25 03/07/25
06:59 06:59 06:59
Intake Total 700 / 700 120 / 120
Balance 700 / 700 120 / 120
Review of Systems
-
History Source: Patient
All other systems: Reviewed and negative
Physical Exam
-
General: Well Developed, Well Nourished, No Apparent Distress, Comfortable and Conversant
HEENT: Normocephalic and Atraumatic
Respiratory: Clear to Auscultation and Non Labored Respirations; Negative Accessory Resp Muscle Use
Cardiac: Regular Rhythm and S1/S2; Negative Murmur
GI: Soft, Nontender and Nondistended
Neuro: Awake and Alert
Psych: Calm and Intact Judgement/Insight (somewhat)
Data Reviewed
-
Labs: Labs Reviewed by me
[2025-03-06 10:46] VITALS: BP 111/40
[2025-03-06 10:58] LABS: Glucose - Point of Care 197 mg/dl (70-99)
[2025-03-06 11:00] VITALS: BP 114/58
--- NOTE | 2025-03-06 11:46 | CM ---
Chart reviewed plan is for discharge today, spouse is at bedside and will transport patient to home.
Plan; Home no needs.
[2025-03-06] MEDS: ZETIA 10 MG PO (11:51)
[2025-03-06] MEDS: FARXIGA 10 MG PO (11:51)
[2025-03-06] MEDS: FOLVITE 1 MG PO (11:52)
[2025-03-06] MEDS: FLOMAX 0.4 MG PO (11:52)
[2025-03-06] MEDS: VITAMIN B1 100 MG PO (11:52)
[2025-03-06] MEDS: PROTONIX IV 40 MG IV (11:53)
[2025-03-06] MEDS: NSS (PRESERVATIVE FREE) 10 ML IV (11:53)
[2025-03-06] MEDS: VASOTEC 5 MG PO (11:54)
[2025-03-06] MEDS: PROSCAR 5 MG PO (11:54)
[2025-03-06] MEDS: NOVOLOG FLEXPEN-MODERATE RESISTANCE 1 UNITS SC (11:55)
--- NOTE | 2025-03-06 12:13 | W.DCSUMMARY ---
Discharge Summary
Discharge Data
Date of Admission: 03/02/25
Date of Discharge: 03/06/25
-
Pending Results: No
Hospital Course
Principal Diagnosis:
# Coffee-ground emesis, due to occult GI bleed
Chronic Diagnoses:�
History of PUD and esophagitis
IDDM on insulin 70/30 at home
Left carotid artery stenosis, asymptomatic
Active smoker
Right pontine CVA
Alcohol use disorder
Essential hypertension
Urinary retention secondary to BPH, continue tamsulosin
Hypercholesterolemia, continue statin, Zetia
GERD
Consultations:�
Gastroenterology
Procedures:�
s/p EGD 03/03: unrevealing, No gross lesions in the entire esophagus. Z-line irregular, 38 cm from the incisors. Biopsied. A ?cardia polyp. Biopsied. Erythematous mucosa in the antrum. Biopsied.
s/p C scope 03/06, also unrevealing: Tortuous colon. Stricture in the recto-sigmoid colon. Diverticulosis in the recto-sigmoid colon, in the sigmoid colon and in the descending colon. A tattoo was seen in the recto-sigmoid colon. The tattoo site
appeared normal. No specimens collected.
Clinical course:�
This is a 74-year-old male with past medical history as stated above, who presented with hematemesis.
Problem 1:
# Coffee-ground emesis, due to occult GI bleed.
His Hemoglobin has been stable, and vital signs stable.
He underwent EGD on 03/03, which was unrevealing: No gross lesions in the entire esophagus. Z-line irregular, 38 cm from the incisors. Biopsied. A ?cardia polyp. Biopsied. Erythematous mucosa in the antrum. Biopsied.
Follow pathology results.
This was followed by C scope on 03/06, which was also unrevealing: Tortuous colon. Stricture in the recto-sigmoid colon. Diverticulosis in the recto-sigmoid colon, in the sigmoid colon and in the descending colon. A tattoo was seen in the
recto-sigmoid colon. The tattoo site appeared normal. No specimens collected.
CT AP was checked for weight loss, the study was limited but overall unrevealing.
Per GI, he can follow-up outpatient for capsule endoscopy, and he would need repeat colonoscopy in 5 years for surveillance.
He was started with Zosyn for concern of aspiration pneumonia development from C-scope (was put under general esthesia and briefly intubated).
He can continue with Augmentin x 5 days for aspiration pneumonia coverage.
He can continue with prior to admission Plavix per GI.
As for the rest of his medical problems, they were stable during his hospital stay.
Discharge Plan
-
Patient Disposition: Home (Routine Discharge)
Discharge Diagnosis/Procedures: Occult GI bleed (EGD and C scope both unrevealing)
Condition: Fair
Diet: As tolerated and Diabetic, Carb Controlled
Activity: As tolerated
Driving Restrictions: As prior to admission
Referrals:
Amelia Broussard MD [Family Provider, Internal Medicine] - in less than 1 week
Additional Discharge Medication Instructions: Continue oral Abx Augmentin x5 days for aspiration pneumonia coverage
Prescriptions:
New
amoxicillin-pot clavulanate 875-125 mg tablet
1 tab PO Q12H 5 Days Qty: 10 0RF
Continued
clopidogrel 75 MG tablet
75 mg PO DAILY
atorvastatin 80 mg Tablet
80 mg PO QPM
ezetimibe 10 mg Tablet
10 mg PO DAILY
Patient Comments:
01/30/2024, pt. unsure if he is taking this med. or not; filled on 01/05/2024 for a 30-day supply.
acetaminophen 500 mg Tablet
1,000 mg DAILYPRN PRN (Reason: mild pain)
tamsulosin 0.4 mg Capsule
0.4 mg PO DAILY
Humulin N NPH U-100 Insulin 100 unit/mL suspension
26 unit SC DAILY
Humulin N NPH U-100 Insulin 100 unit/mL suspension
16 unit SC QHS
finasteride 5 mg Tablet
5 mg PO DAILY
dapagliflozin propanediol [Farxiga] 10 mg Tablet
10 mg PO DAILY
enalapril maleate 5 mg tablet
5 mg PO BID
pantoprazole [Protonix] 40 mg tablet,delayed release (DR/EC)
40 mg PO DAILY
Discharge Orders:
Discharge Patient (As Directed); Ordered 03/06/25
Ordered By: Stacey Farooq
Discharge Date and Time
Print Language: YI
[2025-03-06] MEDS: ZOSYN 50 IV (12:16)
== END 2025-03-06 15:08 | disposition home or self-care (01) | DRG 378 ==
LOC: 4 WEST ACU 14:04
PROVIDERS: Internal Medicine Gastroenterology; Registered Nurse; ADMITTING PHYSICIAN Hospitalist; ATTENDING PHYSICIAN Internal Medicine; CONSULT PHYSICIAN Internal Medicine Gastroenterology; EMERGENCY PHYSICIAN Student in an Organized Health Care Education/Training Program; FAMILY PHYSICIAN Internal Medicine
PROC: 0DB48ZX Excision of Esophagogastric Junction, Via Natural or Artificial Opening Endoscopic, Diagnostic (ICD-10-PCS; 2025-03-03)
PROC: 0DJD8ZZ Inspection of Lower Intestinal Tract, Via Natural or Artificial Opening Endoscopic (ICD-10-PCS; 2025-03-06)
DX: K92.2 Gastrointestinal hemorrhage, unspecified (principal); D68.32 Hemorrhagic disorder due to extrinsic circulating anticoagulants; Z68.1 Body mass index [BMI] 19.9 or less, adult; F17.210 Nicotine dependence, cigarettes, uncomplicated; R63.6 Underweight; E11.65 Type 2 diabetes mellitus with hyperglycemia; I65.22 Occlusion and stenosis of left carotid artery; F10.10 Alcohol abuse, uncomplicated; I11.0 Hypertensive heart disease with heart failure; I50.9 Heart failure, unspecified; E78.00 Pure hypercholesterolemia, unspecified; K22.89 Other specified disease of esophagus; K44.9 Diaphragmatic hernia without obstruction or gangrene; K31.7 Polyp of stomach and duodenum; K31.89 Other diseases of stomach and duodenum; Z86.0100 Personal history of colon polyps, unspecified; Q89.9 Congenital malformation, unspecified
CPT/HCPCS: 88305; 74177; 80048; 80053; 80306; 81003; 81015; 82010; 82077; 82962; 82977; 83036; 83690; 83735; 84100; 85025; 85027; 85610; 85730; 87086; 88342; 96361; 96374; 99285; Q9967

== ENCOUNTER → 2025-05-09 14:40 | Outpatient (REF) | payer MEDICARE, SELFPAY | LOC: RAD 14:40 | PROVIDERS: ATTENDING PHYSICIAN Internal Medicine | DX: R05.8 Other specified cough (principal) | CPT/HCPCS: 71046 ==

== ENCOUNTER 2025-06-16 07:34 | Inpatient (IN) | payer MEDICARE, SELFPAY ==
[2025-06-13] VITALS (9 sets, daily range): BP systolic 159–193; BP diastolic 67–90; BMI 21.7; BMI 20.1
--- NOTE | 2025-06-13 14:39 | ED.CVA ---
History of Present Illness
General
Chief Complaint: CVA/TIA Symptoms
Time Seen by Provider: 06/13/25 14:37
Nursing documentation reviewed up to this point in time: agreed with
Onset of Stroke Symptoms
Onset of symptoms known: Yes
Date of onset of symptoms: 06/13/25
Time of onset of symptoms: 13:19
History of Present Illness
History of Present Illness:
75-year-old male brought to the ED by EMS for evaluation of left-sided weakness noted by at home just prior to dispatch of 911. Patient does have a prior history of CVA but is typically without any residual stroke symptoms. Patient denies any
recent illness. No cough or cold symptoms. No fevers or chills. No recent syncope or trauma. He had been at the grocery store with his , symptoms started while they were sitting in the car. Patient had difficulty using his left arm and
walking independently. He and his presumed that it was his blood sugar so he ate some chocolates. EMS noted prehospital blood sugar to be 130. No recent change in medications. Patient denies any urinary discomforts. He denies headache,
amaurosis fugax or other visual disturbance. Patient does report daily alcohol use but has not had a drink since last night.
Past History
Past History
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
ED Past Surgical History: Orthopedic (right heel fracture 2009), Tonsilectomy and Urological
Social History
Tobacco: Smoker
Alcohol: Daily
Drug: None
Personal:
Living: with family
Family History
Family History: Other (reviewed and noncontributory)
Review of Systems
Review of Systems
Allergies reviewed?: Yes
Phy Exam
Physical Exam
Physical Exam:
Patient is awake, alert, appears in no acute distress, head is NCAT, PERRL, EOMI mucous membranes moist, conjunctiva pink, heart regular rate and rhythm without murmurs or ectopy, lungs are clear to auscultation without wheezes rales or rhonchi, no
JVD, abdomen is soft and nontender on palpation, extremities without edema, GCS is 15, speech is clear, no facial asymmetry, no dysdiadochokinesia, no ataxia, no pronator drift
Scores
NIH Stroke Score
Level of Consciousness: 0 - Alert
LOC Questions: 0-Answers both correctly
LOC Commands: 0-Performs both correctly
Best Horizontal Gaze: 0-Normal
Visual Jang: 0=Normal, no visual loss
Facial Palsy: 0=Normal, symmetrical
Motor - Right Arm: 0=No drift 10 seconds
Motor - Left Arm: 0=No drift 10 seconds
Motor - Right Le-No drift 5 seconds
Motor - Left Le-No drift 5 seconds
Limb Ataxia: 0-Absent
Sensation: 0-Normal
Best Language: 0-No aphasia
Dysarthria: 0-Normal
Extinction and Inattention: 0-No abnormality
NIH Total Score:: 0
Course
Orders/Labs/Results
Orders:
Orders
06/13/25 14:37
CT Head W/o Iv Contrast Urgent
Comment:
Reason For Exam: L sided weakness, resolved
Cardiac Monitoring- Treatment ONCE
IV Insert/Care/Rem.- Treatment PRN
0.9% Sodium Chloride 1000 ml [Nss] 1,000 ml IV BOLUS
Pulse Ox/cont/shift [RESP] Stat
Quantity: 1
06/13/25 14:38
Electrocardiogram (*1) Stat
Reason for Study: Other
Other Reason for Exam: neuro symptoms
EKG- Treatment ONCE
CR Chest - 2 Views Urgent
Comment:
Reason For Exam: cva
06/13/25 14:42
Alcohol Urgent
Complete Blood Count/With Diff Urgent
Comprehensive Metabolic Panel Urgent
PTT Urgent
Prothrombin Time Urgent
Troponin I Urgent
06/13/25 16:36
Aspirin 325 mg PO NOW STA
06/13/25 16:50
Urinalysis Reflex To Culture Urgent
Date Specimen was Collected: 06/13/25
Time Specimen was Collected: 14:47
Urine Microscopic Reflex Cult Urgent
Urine Culture Urgent
KEVIN Source: U
Specimen Description:
Date Specimen was Collected: 06/13/25
Time Specimen was Collected: 14:47
06/13/25 17:59
Dextrose 50%-Water [Dextrose 50% Syringe] 25 grams .ROUTE .[facility]
06/13/25 18:01
Dextrose 50%-Water [Dextrose 50% Syringe] 12.5 grams IV NOW STA
06/13/25 19:41
Admit/Transfer Patient As Directed
Co-Sign Provider:
Level of Care: Observation services
Assign to:: Telemetry
Physician / Group: Dr. Reuben Quinones/Hospitalists
Diagnosis: Left-Sided Weakness
Reason for Telemetry: CVA/TIA
Date to Stop Telemetry: 06/16/25
Time to Stop Telemetry: 11:00
06/13/25 19:44
Code Status As Directed
Resuscitation Status: Full Code
06/13/25 19:48
Bladder Scan As Directed
Follow Bladder Retention/Intermittent Cath Algorithm?: Yes
PRN if no void in __ hours: 6
Frequency: Per Retention Algorithm
If Bladder Scan Result >: 400
then:: Straight cath
Straight Cath As Directed
Frequency: Per Retention Algorithm
Additional Instructions: straight cath as needed per acute urinary retention algorithm for 24 hrs
Additional Instructions: for bladder scan greater than 400 mL
06/13/25 19:49
Bedside Glucose Monitoring As Directed
Frequency: AC&HS
Additional Instructions:: Change to q6h if pt on TPN, tube feeding or not eating
MSAS SCORE As Directed
MSAS Score 0-4: Repeat MSAS every 2 hours until 0-4 for three consecutive assessments, then every 4 hours x 48
hours.
MSAS Score 5-7: For MILD withdrawl symptoms. Repeat MSAS and RASS every 2 hours
MSAS Score 8-11: For MODERATE withdrawal symptoms. Repeat MSAS and RASS every 1 hour. Consider ICU or IMU
level of care.
MSAS Score > 11: For SEVERE withdrawal symptoms. Repeat MSAS and RASS every 1 hour. Notify provider, consider
ICU level of care.
MSAS Additional Instructions: If no improvement or no decrease in score from severe to moderate within 12
hours, consult psychiatry
MSAS Notify Provider: Notify provider if patient requires more than 10 mg of Lorazepam in eight hour period.
06/13/25 19:57
CT Head & Neck Angio W/wo IV Routine
Comment:
Reason For Exam: Carotid Stenosis. Stroke?
06/16/25 11:00
DC Protocol for Telemetry ONCE
Abnormal Lab Results
06/13/25 06/13/25 06/13/25
14:42 16:50 17:54
RBC 4.44 L 10^6/uL
(4.70-6.10)
MCH 31.5 H pg
(27.0-31.0)
Absolute Neuts (auto) 7.3 H 10^3/uL
(1.4-6.5)
Absolute Monos (auto) 0.8 H 10^3/uL
(0.1-0.6)
Lymphocytes % 13.7 L %
(20.5-51.1)
Sodium 132 L mmol/L
(135-145)
Glucose 150 H mg/dl
(70-99)
Ur Occult Blood Reflex 2+ A
(Negative)
Leukocyte Esterase Rfl 3+ A
(Negative)
Urine RBC 3-6 A /HPF
(0-2)
Urine WBC (Reflex) >100 A /HPF
(0-5)
Urine Bacteria (Reflex) Moderate A
(Negative)
Urine Yeast Few A
(Negative)
Urine Albumin (Reflex) 1+ A
(Neg - Trace)
POC Glucose 55 L* mg/dl
(70-99)
06/13/25
18:16
RBC
MCH
Absolute Neuts (auto)
Absolute Monos (auto)
Lymphocytes %
Sodium
Glucose
Ur Occult Blood Reflex
Leukocyte Esterase Rfl
Urine RBC
Urine WBC (Reflex)
Urine Bacteria (Reflex)
Urine Yeast
Urine Albumin (Reflex)
POC Glucose 114 H mg/dl
(70-99)
06/13/25 14:42
06/13/25 14:42
Vital Signs
Initial and Last Documented VS:
Initial Vital Signs
Temp Pulse Resp BP Pulse Ox
97.6 F 70 10 186/68 97
06/13/25 14:34 06/13/25 14:34 06/13/25 14:34 06/13/25 14:34 06/13/25 14:34
Last Documented Vital Signs
Temp Pulse Resp BP Pulse Ox
97.6 F 58 18 180/80 98
06/13/25 14:34 06/13/25 20:00 06/13/25 16:46 06/13/25 20:00 06/13/25 19:00
MDM/Problems Addressed
Differential Diagnosis Includes:
Differential diagnosis considered but not limited to TIA, CVA, electrolyte dyscrasia, occult infection, acute alcohol intoxication along with other etiologies considered
Chronic conditions affecting care:
Prior stroke with difficulty with balance, hypertension, cholesterol, diabetes
*Radiology
Radiology exam reviewed: preliminary read by ED provider (I independently viewed and interpreted two-view chest x-ray showing clear lungs, normal cardiac silhouette, similar to prior from 05/09/2025. I also independently viewed and interpreted CT of
the head showing previous right frontal infarct, no acute hemorrhage, no midline shift, diffuse atrophy. Aw)
*Pulse Oximetry
SaO2: 97
Oxygen Mode of Delivery: Room air
Patient hypoxic: no
*EKG
Interpreted by ED Provider?: Yes (I independently viewed and interpreted twelve-lead EKG showing sinus bradycardia, mild baseline artifact, rate 58, normal axis, normal intervals, no ST elevation, this is an abnormal EKG with new T wave inversion in
anterior leads compared to prior EKG from 11/24/2024)
*Pressroom Foreman Interpretation
Rate: normal (I independently viewed and interpreted rhythm strip showing sinus bradycardia, no ectopy)
*Critical Care Note
Total Time (30-74mins, 75-104mins- exclusive of procedures): Not Applicable
Update Note
Update Note:
TNK is not indicated as patient is asymptomatic with complete resolution of symptoms. Will obtain Noncon CT head along with screening labs and chest x-ray. Patient agrees with plan at current. Will reassess
Patient resting comfortably. present at bedside. I reviewed with them all test results and concern for TIA. They agree with plan for admission for further care. Patient had low blood sugar-down to 55. Patient given juice and IV dextrose.
I reviewed full patient presentation with the hospitalist, who accepts patient for admission for further care. Aspirin ordered.
ED Attending Note
-
Portions of this chart may have been created with voice recognition software.� Occasional wrong word or��sound alike� substitutions may have occurred due to the inherent limitations of voice recognition software.
Discharge Plan
Departure
Patient Disposition: Admit
Date of Disposition: 06/13/25
Time of Disposition: 16:52
Presentation/result/management discussed w/ accepting MD/DO: Hospitalist
Discharge Problem:
TIA (transient ischemic attack)
Prescriptions:
No Action
clopidogrel 75 MG tablet
75 mg PO DAILY
atorvastatin 80 mg Tablet
80 mg PO QPM
ezetimibe 10 mg Tablet
10 mg PO DAILY
Patient Comments:
01/30/2024, pt. unsure if he is taking this med. or not; filled on 01/05/2024 for a 30-day supply.
acetaminophen 500 mg Tablet
1,000 mg DAILYPRN PRN (Reason: mild pain)
tamsulosin 0.4 mg Capsule
0.4 mg PO DAILY
Humulin N NPH U-100 Insulin 100 unit/mL suspension
26 unit SC DAILY
Humulin N NPH U-100 Insulin 100 unit/mL suspension
16 unit SC QHS
finasteride 5 mg Tablet
5 mg PO DAILY
dapagliflozin propanediol [Farxiga] 10 mg Tablet
10 mg PO DAILY
enalapril maleate 5 mg tablet
5 mg PO BID
pantoprazole [Protonix] 40 mg tablet,delayed release (DR/EC)
40 mg PO DAILY
amoxicillin-pot clavulanate 875-125 mg tablet
1 tab PO Q12H 5 Days Qty: 10 0RF
Interventions
Interventions:
*General Assessment Last Done: 06/13/25 14:34
*Neglect/Abuse Screening Last Done: 06/13/25 14:34
*ED- Fall Risk Assessment Last Done: 06/13/25 14:34
*ED COVID-19 Vaccine History Last Done: 06/13/25 14:34
ED- Pulmonary Assessment Last Done: 06/13/25 16:47
ED- Neurological Assessment Last Done: 06/13/25 14:34
ED- Cardiac Assessment Last Done: 06/13/25 16:47
ED Swallowing Screen Last Done: 06/13/25 16:45
Discharge Date and Time
Print Language: KOREAN
[2025-06-13] MEDS: NSS 1000 IV (14:43)
[2025-06-13 14:55] LABS: Hematocrit 40.8 % (39.0-52.0); Hemoglobin 14.0 g/dL (13.0-18.0); Mean Corp Hgb Conc. 34.3 g/dL (33.0-37.0); Mean Corpuscular Volume 91.9 fL (80.0-94.0); Nucleated Red Blood Cells % 0 % (-); Platelet Count 246 10^3/uL (130-400); Red Cell Dist. Width 12.3 % (11.5-14.5)
[2025-06-13 15:02] LABS: INR 0.99; PT 13.4 Sec (11.4-14.6)
[2025-06-13 15:03] LABS: APTT 25.1 Sec (23.4-35.0)
[2025-06-13 15:06] LABS: ALT (SGPT) 27 U/L (0-50); AST (SGOT) 27 U/L (17-59); Albumin 4.5 g/dl (3.5-5.0); Alkaline Phosphatase 44 U/L (38-126); Blood Urea Nitrogen 15 mg/dl (9-20); Calcium 9.7 mg/dl (8.4-10.2); Carbon Dioxide 28 mmol/L (22-30); Chloride 99 mmol/L (98-107); Glucose 150 mg/dl (70-99); Potassium 4.4 mmol/L (3.5-5.1); Sodium 132 mmol/L (135-145); Total Protein 7.5 g/dl (6.3-8.2); eGFR > 60.00
[2025-06-13 15:18] LABS: Troponin I 0.024 ng/ml
[2025-06-13] MEDS: ASPIRIN 325 MG PO (16:44)
--- NOTE | 2025-06-13 17:11 | HPS.HSE ---
Family Physician
-
Family Physician: Amelia Broussard
Chief Complaint
-
Left-Sided Weakness
History of Present Illness
75-year-old male with past medical history in the Assessment/Plan section below, brought to the ED by EMS for evaluation of left-sided weakness noted by at home just prior to dispatch of 911. Patient does have a prior history of CVA and per
patient's had left-sided weakness with that. Patient denies any recent illness. No cough or cold symptoms. No unusual urinary symptoms. No fevers or chills. No recent syncope or trauma. Patient had low blood sugar in the 30s (per patient's
) and she gave him orange juice, and solid carbohydrates, patient then went to the bathroom, but had difficulty getting up from his commode, and EMS noted that his left side seemed weaker. Patient had difficulty using his left arm and walking
independently. EMS noted prehospital blood sugar to be 130. No recent change in medications. Patient denies any urinary discomforts. He denies headache, amaurosis fugax or other visual disturbance.
Medical History
Past Medical History
Past Medical History: Reports Other (As per HPI above)
Past Surgical History: Reports Other (Right heel fracture 2009, Tonsillectomy and Urological)
Social History
Tobacco: Smoker
Alcohol: Daily
Drug: None
Family History
Family History: Not pertinent
Allergies / Home Medications
Allergies reflects when Allergies were last updated in [facility].
Home Medications with original date entered in [facility]
Allergy/Medication List:
Allergies
Allergy/AdvReac Type Severity Reaction Status Date / Time
No Known Allergies Allergy Verified 03/02/25 11:09
Home Medications
clopidogrel 75 mg tablet 75 mg PO DAILY Blood Clot Prevention/Tx 05/26/23
atorvastatin 80 mg tablet 80 mg PO QPM High Cholesterol 08/19/23
ezetimibe 10 mg tablet 10 mg PO DAILY High Cholesterol 01/21/24
acetaminophen 500 mg tablet 1,000 mg DAILYPRN PRN mild pain 07/06/24
tamsulosin 0.4 mg capsule 0.4 mg PO DAILY Urinary Issue 11/16/24
dapagliflozin propanediol 10 mg tablet (Farxiga) 10 mg PO DAILY 03/02/25
enalapril maleate 5 mg tablet 5 mg PO BID Blood Pressure 03/02/25
finasteride 5 mg tablet 5 mg PO DAILY BPH 03/02/25
insulin NPH isoph U-100 human 100 unit/mL subcutaneous suspension (Humulin N NPH U-100 Insulin (isophane susp)) 16 unit SC QHS Diabetes 03/02/25
insulin NPH isoph U-100 human 100 unit/mL subcutaneous suspension (Humulin N NPH U-100 Insulin (isophane susp)) 26 unit SC DAILY Diabetes 03/02/25
pantoprazole 40 mg tablet,delayed release (Protonix) 40 mg PO DAILY Gastrointestinal Issue 03/02/25
amoxicillin 875 mg-potassium clavulanate 125 mg tablet 1 tab PO Q12H 5 days #10 tabs 03/06/25
Review of Systems
-
A 12 point ROS was completed and negative except as noted: Yes
Physical Exam
Vital Signs
Vital Signs
Temp Pulse Resp BP Pulse Ox
97.6 F 61 18 159/69 98
06/13/25 14:34 06/13/25 16:45 06/13/25 16:46 06/13/25 15:00 06/13/25 16:45
Physical Exam
General: No Apparent Distress and Comfortable
HEENT: NormoCephalic and Moist mucous membranes
Respiratory: Clear
Cardiac: S1/S2 and Regular Rhythm
GI: Soft, Non Tender and Normal Bowel Sounds
Musculoskeletal: No Cyanosis and No Edema
Skin: Warm and Dry
Neuro: Awake, Alert, AO x 3, Nonfocal/grossly intact, Cranial Nerves Intact and No Sensory Deficits
Psych: Calm and Intact Judgment/Insight
Laboratory Results
-
06/13/25 14:42
06/13/25 14:42
Laboratory Results
PT 13.4 Sec (11.4-14.6) 06/13/25 14:42
INR 0.99 06/13/25 14:42
APTT 25.1 Sec (23.4-35.0) 06/13/25 14:42
Total Bilirubin 0.9 mg/dl (0.2-1.3) 06/13/25 14:42
AST 27 U/L (17-59) 06/13/25 14:42
ALT 27 U/L (0-50) 06/13/25 14:42
Alkaline Phosphatase 44 U/L (38-126) 06/13/25 14:42
Troponin I 0.024 ng/ml 06/13/25 14:42
Impression/Plan
-
Assessment/Plan
Presentation with Left-Sided Weakness/Slumped on the side of the Commode (with preserved consciousness)
History of Asymptomatic Left Carotid Artery Stenosis
-Neurology consultation appreciated
-Hypoglycemia component -- with associated recrudescence of prior stroke?
-Discussed with Dr. Dotson, start Plavix 75 mg today, check CTA Head and Neck, MRI Brain without contrast
-In the past, CTA head/neck showed Left Carotid Bulb 80% stenosis, right carotid bulb 50% stenosis -- will consider vascular evaluation in hospital - previously it was noted that patient could benefit from outpatient carotid interventions
bilaterally to lower patient's stroke risk
-CT Head without acute stroke
-Check CTA Head and Neck -- discussed with neurologist Dr. Dotson who is in agreement
-Patient should stay on Plavix 75 and Lipitor 80
-Add Aspirin 81 mg daily (received 325 mg Aspirin in the ER)
-Monitor for GI bleeding
-Monitor on telemetry
Carotid Artery Stenosis
-Patient has an appointment with Dr. Guzman vascular surgeon on 06/22/25
-Will notify Dr. Guzman
History of Hyperkalemia in Setting of Enalapril
Upper GI Bleed/Copious Coffee Ground Emesis on 11/17/24
Gastrointestinal Bleeding/coffee-ground emesis
History of PUD and esophagitis
-Continue daily PPI
-EGD on 03/03/25 was unrevealing, but did show erythematous mucosa
-Colonoscopy on 03/06/25 was also unrevealing for bleed
-Per GI, patient was told he could follow-up outpatient for capsule endoscopy, and he would need repeat colonoscopy in 5 years for surveillance.
-Was supposed to get capsule endoscopy outpatient, but did not since capsule was flushed in the toilet by mistake, as per patient and his
-Monitor CBC
-Will notify Dr. Andre, his voip network engineer
Type 2 Diabetes Mellitus
Hyperglycemia
History of Significant Hypoglycemia
-Accucheck only for now given hypoglycemia outpatient
#Mild Hyponatremia
-PO FR 40 ounces daily
#History of Minimally displaced 10th rib fracture
-From prior chest x-ray on 10/31
#COPD
#Active smoker
-Encourage smoking cessation
#Cardiomyopathy
-Continue dapagliflozin
#History of Right pontine CVA
-Continue Plavix, statin
-Continue newly started Aspirin
#Alcohol use disorder
-Thiamine and folate
-Alcohol withdrawal protocol
#Essential hypertension
-Enalapril
-Low sodium diet
#GERD
#Peptic ulcer disease
#History of Urinary retention secondary to BPH
-Continue tamsulosin
-Bladder scans protocol/monitor for urinary retention
#Hypercholesterolemia
-Continue statin, Zetia
#Previous Weight Loss
-CT AP was checked earlier in 2024 for weight loss, the study was limited but overall unrevealing.
Code Status: Full code
DVT Prophylaxis: SCDs. Lovenox
Diet: Diabetic diet
[2025-06-13 17:12] LABS: Urine Character Clear (Clear)
[2025-06-13 17:19] LABS: Glucose - Point of Care 74 mg/dl (70-99)
[2025-06-13 17:23] LABS: Urine Squamous Cell 0-2 /LPF (Few)
[2025-06-13 17:24] LABS: Urine White Cell >100 /HPF (0-5)
[2025-06-13 17:59] LABS: Glucose - Point of Care 55 mg/dl (70-99)
[2025-06-13] MEDS: DEXTROSE 50% SYRINGE 12.5 GRAMS IV (18:03)
[2025-06-13 18:23] LABS: Glucose - Point of Care 114 mg/dl (70-99)
[2025-06-13 20:57] LABS: Glucose - Point of Care 108 mg/dl (70-99)
[2025-06-13 21:48] LABS: Glucose - Point of Care 169 mg/dl (70-99)
[2025-06-13] MEDS: VASOTEC 5 MG PO (22:59)
[2025-06-13] MEDS: LOVENOX SC ×2 (23:01→23:05)
[2025-06-13] MEDS: LIPITOR 80 MG PO (23:01)
[2025-06-14] VITALS (8 sets, daily range): BP systolic 144–186; BP diastolic 52–79; PULSE 65; O2SAT 95
--- NOTE | 2025-06-14 02:20 | TRANSFER ---
Pt transferred to 3W from ED. Pt ambulated from stretcher to hospital bed. AAOx3, Pt oriented to room, call soto within reach, plan of care ongoing.
[2025-06-14 06:00] LABS: Hematocrit 38.8 % (39.0-52.0); Hemoglobin 13.5 g/dL (13.0-18.0); Mean Corp Hgb Conc. 34.8 g/dL (33.0-37.0); Mean Corpuscular Volume 91.7 fL (80.0-94.0); Platelet Count 241 10^3/uL (130-400); Red Cell Dist. Width 12.5 % (11.5-14.5)
[2025-06-14 06:18] LABS: Blood Urea Nitrogen 9 mg/dl (9-20); Calcium 9.2 mg/dl (8.4-10.2); Carbon Dioxide 27 mmol/L (22-30); Chloride 106 mmol/L (98-107); Estimated Creatinine Clearance 70 ml/min; Glucose 101 mg/dl (70-99); HDL Cholesterol 55 mg/dl; LDL Cholesterol, Calculated 42 mg/dl; Magnesium 1.7 mg/dl (1.6-2.3); Potassium 4.1 mmol/L (3.5-5.1); Sodium 136 mmol/L (135-145); Very Low Density Lipoprotein 15 mg/dl (0-30); eGFR > 60.00
[2025-06-14] MEDS: PROTONIX 40 MG PO (07:50)
[2025-06-14] MEDS: FLOMAX 0.4 MG PO (07:50)
[2025-06-14] MEDS: VASOTEC 5 MG PO ×2 (07:50→20:04)
[2025-06-14] MEDS: LOW STRENGTH ASPIRIN 81 MG PO (07:52)
[2025-06-14] MEDS: FARXIGA 10 MG PO (07:52)
[2025-06-14] MEDS: ZETIA 10 MG PO (07:52)
[2025-06-14] MEDS: PROSCAR 5 MG PO (07:52)
[2025-06-14] MEDS: PLAVIX 75 MG PO (07:52)
[2025-06-14 08:05] LABS: Glucose - Point of Care 180 mg/dl (70-99)
--- NOTE | 2025-06-14 08:26 | CON.NEURO ---
Consultation
Order
Date of Consultation: 06/14/25
Requesting Provider: Reuben Quinones MD
Reason for Consult: TIA
Neurology Consultation Note.
HPI: This is a 75-year-old RH man who presented to [facility] on 06/13/2025 with transient left hemiparesis.
Mr. Tripp reports that while at the grocery store with his , she noticed he was behaving oddly. When attempting to open the car door, he was 'fooling around with it rather than just opening it.' He also experienced weakness on the left side
and had difficulty with mobility, leaning against the wall when he sat on the toilet.
He denies any changes in speech, headache, vision changes, or memory issues. The patient believes he is 'back to himself' now.
ER VS: 186/68, 70, afebrile
EKG: Sinus bradycardia at 58, QTcB Int : 396 ms
PDMP: No recently prescribed medications
Labs: Glucose�150, sodium�132, normal WBC, platelets, LDL�42, HbA1C(03/02/2025) 9.4.
CT head wo contrast-moderate atrophy, chronic left lentiform nucleus, thalamus, right cerebellum and right caudate nucleus infarcts.
CTA head/neck� 50-69% Right ICA stenosis
PMH: HTN, DLP, DM, BPH
PSH: tonsillectomy,
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
FH: No family history of strokes
All:NKDA
ROS: General: Positive for unintentional weight loss of 15 pounds and decreased appetite. Negative for fever, chills, and fatigue.
HEENT: Negative for headache and vision changes.
Cardiovascular: Negative for chest pain.
Gastrointestinal: Negative for abdominal pain.
Neurological: Positive for left-sided weakness (resolved). Negative for tingling or numbness in feet, memory changes, and balance issues.
Psychiatric: Negative for memory changes.
General: Well developed. In no acute distress.
Cardio: Regular rate and rhythm without murmur. Extremities are without cyanosis or edema.
Neuro:
Mental Status: Alert, oriented to person, place, and date. Good fund of knowledge. Follows complex requests across the midline. Comprehension, naming, and repetition intact.
Cranial Nerves: Pupils are equally round and reactive to light. EOMs full. Visual chan full to confrontation. No ptosis. No nystagmus. V1-V3 intact to light touch and pinprick bilaterally, symmetric. Face symmetric. Impaired hearing AU.
The palate elevated well. SCMs and traps 5/5. Tongue midline. Mild dysarthria.
Motor: Normal bulk and tone. No pronator or arm drift. Strength 5/5 throughout. No clonus.
Reflexes: Limited exam due to positioning negative grasp
Sensory: Normal vibration at the toes
Coordination: No dysmetria or tremor.
Gait: deferred
Assessment and Plan:
I Acute right pure motor lacunar syndrome.
II. 50-69% Right ICA stenosis
III.Hypertensive emergency
IV. DM, sub optimally controlled.
- Continue Telemetry monitoring
- Aspiration precautions
- Brain MRI without
- Continue aspirin 81 mg once a day and Plavix 75 mg once a day
- Lipitor 40 mg nightly
- Strict glycemic control
- Will contact patient's spouse to obtain collateral history
- PT.
- DVT prophylaxis.
I personally reviewed all radiology and labs along with past medical records pertinent to current medical problems. Total time spent in patient care is 55 minutes.
Thank you for allowing us to participate in the care of this patient. We will continue to follow. Please do not hesitate to contact us with any questions or concerns.
Subjective/Objective
Subjective Data
Date of Service: June 14, 2025
Objective Data
Vital Signs
Temp Pulse Resp BP Pulse Ox
36.3 C 57 14 167/79 94
06/14/25 07:59 06/14/25 07:59 06/14/25 07:59 06/14/25 07:59 06/14/25 07:59
Lab Results
06/14/25 05:03
06/14/25 05:03
PT 13.4 Sec (11.4-14.6) 06/13/25 14:42
INR 0.99 06/13/25 14:42
APTT 25.1 Sec (23.4-35.0) 06/13/25 14:42
Sodium 136 mmol/L (135-145) 06/14/25 05:03
Potassium 4.1 mmol/L (3.5-5.1) 06/14/25 05:03
BUN 9 mg/dl (9-20) 06/14/25 05:03
Glucose 101 mg/dl (70-99) H 06/14/25 05:03
Calcium 9.2 mg/dl (8.4-10.2) 06/14/25 05:03
LDL Cholesterol, Calc 42 mg/dl 06/14/25 05:03
Patient Allergies
No Known Allergies Allergy (Verified 03/02/25 11:09)
Medications
-
Active Medications
Generic Name Dose Route Start Last Admin
Trade Name Freq PRN Reason Stop Dose Admin
Acetaminophen 650 mg 06/13/25 21:36
Acetaminophen 650 Mg Rectal Suppository RECTAL 07/11/25 21:35
Q4HPRN PRN
ENRIQUEZ, mild pain, or temp >100.4F
Acetaminophen 650 mg 06/13/25 21:36
Acetaminophen 325 Mg Tablet PO 07/11/25 21:35
Q4HPRN PRN
ENRIQUEZ, mild pain, or temp >100.4F
Aspirin 81 mg 06/14/25 08:00 06/14/25 07:52
Aspirin 81 Mg Chewable Tablet PO 07/12/25 07:59 81 mg
DAILY TRAN Administration
Atorvastatin Calcium 80 mg 06/13/25 21:36 06/13/25 23:01
Atorvastatin (Lipitor) 80 Mg Tablet PO 07/11/25 21:35 80 mg
QPM TRAN Administration
Clopidogrel Bisulfate 75 mg 06/14/25 08:00 06/14/25 07:52
Clopidogrel 75 Mg Tablet PO 07/12/25 07:59 75 mg
DAILY TRAN Administration
Dapagliflozin 10 mg 06/14/25 08:00 06/14/25 07:52
Dapagliflozin (Farxiga) 10 Mg Tablet PO 07/12/25 07:59 10 mg
DAILY TRAN Administration
Ezetimibe 10 mg 06/14/25 08:00 06/14/25 07:52
Ezetimibe (Zetia) 10 Mg Tablet PO 07/12/25 07:59 10 mg
DAILY TRAN Administration
Enalapril Maleate 5 mg 06/13/25 21:36 06/14/25 07:50
Enalapril 5 Mg Tablet PO 07/11/25 21:35 5 mg
BID TRAN Administration
Enoxaparin Sodium 40 mg 06/13/25 21:36 06/13/25 23:05
Enoxaparin Sodium 40 Mg/0.4 Ml Syringe SC 07/11/25 21:35 Not Given
QPM TRAN
Finasteride 5 mg 06/14/25 08:00 06/14/25 07:52
Finasteride 5 Mg Tablet PO 07/12/25 07:59 5 mg
DAILY TRAN Administration
Pantoprazole Sodium 40 mg 06/14/25 08:00 06/14/25 07:50
Pantoprazole 40 Mg Delayed Release Tablet PO 07/12/25 07:59 40 mg
DAILY TRAN Administration
Sodium Chloride 0 flush 06/13/25 22:00
Sodium Chloride 0.9% (Flush) Syringe IV 07/11/25 21:59
PER PROTOCOL TRAN
Tamsulosin HCl 0.4 mg 06/14/25 08:00 06/14/25 07:50
Tamsulosin 0.4 Mg Capsule PO 07/12/25 07:59 0.4 mg
DAILY TRAN Administration
Home Medications
�Medication �Instructions �Recorded
clopidogrel 75 mg tablet 75 mg PO DAILY Blood Clot 05/26/23
Prevention/Tx
atorvastatin 80 mg tablet 80 mg PO QPM High Cholesterol 08/19/23
ezetimibe 10 mg tablet 10 mg PO DAILY High Cholesterol 01/21/24
acetaminophen 500 mg tablet 1,000 mg DAILYPRN PRN mild pain 07/06/24
tamsulosin 0.4 mg capsule 0.4 mg PO DAILY Urinary Issue 11/16/24
dapagliflozin propanediol 10 mg 10 mg PO DAILY 03/02/25
tablet (Farxiga)
enalapril maleate 5 mg tablet 5 mg PO BID Blood Pressure 03/02/25
finasteride 5 mg tablet 5 mg PO DAILY BPH 03/02/25
insulin NPH isoph U-100 human 100 16 unit SC QHS Diabetes 03/02/25
unit/mL subcutaneous suspension
(Humulin N NPH U-100 Insulin
(isophane susp))
insulin NPH isoph U-100 human 100 26 unit SC DAILY Diabetes 03/02/25
unit/mL subcutaneous suspension
(Humulin N NPH U-100 Insulin
(isophane susp))
pantoprazole 40 mg tablet,delayed 40 mg PO DAILY Gastrointestinal 03/02/25
release (Protonix) Issue
amoxicillin 875 mg-potassium 1 tab PO Q12H 5 days #10 tabs 03/06/25
clavulanate 125 mg tablet
Vital Signs and Labs
-
Vital Signs and Labs:
Vital Signs
Temp Pulse Resp BP Pulse Ox
36.3 C 57 14 167/79 94
06/14/25 07:59 06/14/25 07:59 06/14/25 07:59 06/14/25 07:59 06/14/25 07:59
Lab Results
06/14/25 05:03
06/14/25 05:03
PT 13.4 Sec (11.4-14.6) 06/13/25 14:42
INR 0.99 06/13/25 14:42
APTT 25.1 Sec (23.4-35.0) 06/13/25 14:42
Sodium 136 mmol/L (135-145) 06/14/25 05:03
Potassium 4.1 mmol/L (3.5-5.1) 06/14/25 05:03
BUN 9 mg/dl (9-20) 06/14/25 05:03
Glucose 101 mg/dl (70-99) H 06/14/25 05:03
Calcium 9.2 mg/dl (8.4-10.2) 06/14/25 05:03
LDL Cholesterol, Calc 42 mg/dl 06/14/25 05:03
Medications
-
Medications:
Generic Name Dose Route Start Last Admin
Trade Name Freq PRN Reason Stop Dose Admin
Acetaminophen 650 mg 06/13/25 21:36
Acetaminophen 650 Mg Rectal Suppository RECTAL 07/11/25 21:35
Q4HPRN PRN
ENRIQUEZ, mild pain, or temp >100.4F
Acetaminophen 650 mg 06/13/25 21:36
Acetaminophen 325 Mg Tablet PO 07/11/25 21:35
Q4HPRN PRN
ENRIQUEZ, mild pain, or temp >100.4F
Aspirin 81 mg 06/14/25 08:00 06/14/25 07:52
Aspirin 81 Mg Chewable Tablet PO 07/12/25 07:59 81 mg
DAILY TRAN Administration
Atorvastatin Calcium 80 mg 06/13/25 21:36 06/13/25 23:01
Atorvastatin (Lipitor) 80 Mg Tablet PO 07/11/25 21:35 80 mg
QPM TRAN Administration
Clopidogrel Bisulfate 75 mg 06/14/25 08:00 06/14/25 07:52
Clopidogrel 75 Mg Tablet PO 07/12/25 07:59 75 mg
DAILY TRAN Administration
Dapagliflozin 10 mg 06/14/25 08:00 06/14/25 07:52
Dapagliflozin (Farxiga) 10 Mg Tablet PO 07/12/25 07:59 10 mg
DAILY TRAN Administration
Ezetimibe 10 mg 06/14/25 08:00 06/14/25 07:52
Ezetimibe (Zetia) 10 Mg Tablet PO 07/12/25 07:59 10 mg
DAILY TRAN Administration
Enalapril Maleate 5 mg 06/13/25 21:36 06/14/25 07:50
Enalapril 5 Mg Tablet PO 07/11/25 21:35 5 mg
BID TRAN Administration
Enoxaparin Sodium 40 mg 06/13/25 21:36 06/13/25 23:05
Enoxaparin Sodium 40 Mg/0.4 Ml Syringe SC 07/11/25 21:35 Not Given
QPM TRAN
Finasteride 5 mg 06/14/25 08:00 06/14/25 07:52
Finasteride 5 Mg Tablet PO 07/12/25 07:59 5 mg
DAILY TRAN Administration
Pantoprazole Sodium 40 mg 06/14/25 08:00 06/14/25 07:50
Pantoprazole 40 Mg Delayed Release Tablet PO 07/12/25 07:59 40 mg
DAILY TRAN Administration
Sodium Chloride 0 flush 06/13/25 22:00
Sodium Chloride 0.9% (Flush) Syringe IV 07/11/25 21:59
PER PROTOCOL TRAN
Tamsulosin HCl 0.4 mg 06/14/25 08:00 06/14/25 07:50
Tamsulosin 0.4 Mg Capsule PO 07/12/25 07:59 0.4 mg
DAILY TRAN Administration
Home Medications
-
Home Medications
clopidogrel 75 mg tablet 75 mg PO DAILY Blood Clot Prevention/Tx 05/26/23
atorvastatin 80 mg tablet 80 mg PO QPM High Cholesterol 08/19/23
ezetimibe 10 mg tablet 10 mg PO DAILY High Cholesterol 01/21/24
acetaminophen 500 mg tablet 1,000 mg DAILYPRN PRN mild pain 07/06/24
tamsulosin 0.4 mg capsule 0.4 mg PO DAILY Urinary Issue 11/16/24
dapagliflozin propanediol 10 mg tablet (Ziga) 10 mg PO DAILY 03/02/25
enalapril maleate 5 mg tablet 5 mg PO BID Blood Pressure 03/02/25
finasteride 5 mg tablet 5 mg PO DAILY BPH 03/02/25
insulin NPH isoph U-100 human 100 unit/mL subcutaneous suspension (Humulin N NPH U-100 Insulin (isophane susp)) 16 unit SC QHS Diabetes 03/02/25
insulin NPH isoph U-100 human 100 unit/mL subcutaneous suspension (Humulin N NPH U-100 Insulin (isophane susp)) 26 unit SC DAILY Diabetes 03/02/25
pantoprazole 40 mg tablet,delayed release (Protonix) 40 mg PO DAILY Gastrointestinal Issue 03/02/25
amoxicillin 875 mg-potassium clavulanate 125 mg tablet 1 tab PO Q12H 5 days #10 tabs 03/06/25
--- NOTE | 2025-06-14 09:30 | CM ---
Addendum entered by Kelsea King 06/14/25 12:58:
Becker notice given. Pt unhappy about OBS status; his signed the form and it was placed in the chart.
Original Note:
CM reviewed chart and met with pt to complete IA. Joel lives with his in multistory home, [address], 1st floor bath
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
Discussed daily alcohol use, states he drinks 2 beers daily. He declined [facility] referral. Pt aware he can speak to [facility] during his hospital stay, or even as an outpatient if he changes his mind.
Plan: CM will follow to coordinate discharge planning needs, likely no needs per patient preference.
PCP: Amelia Broussard
Pharmacy: [facility]
--- NOTE | 2025-06-14 10:43 | PTOTSP ---
Speech Therapy Evaluation:
Pt with acute on chronic risk factors of dysphagia including hx of R pontine CVA, GERD, COPD, compounded by concern for acute CVA. At bedside oral phase WFL. Noted dry brief cough at rest in the absence of PO, which did not increase with PO intake.
Chest imaging without pneumonia, pt passed 3oz swallow screen, and WBC WNL.
Recommend:
1. Regular solids and thin liquids
2. Medications as tolerated
3. General aspiration precautions
4. WREATH MACHINE OPERATOR to follow, likely brief
[2025-06-14 11:46] LABS: Glucose - Point of Care 299 mg/dl (70-99)
--- NOTE | 2025-06-14 12:48 | W.PN.HOSP.TC ---
Today's Communication/Plan
-
Awaiting Brain MRI
See plan
Assessment / Plan
Assessment / Plan
Physical Exam
General: No Apparent Distress and Comfortable
HEENT: NormoCephalic and Moist mucous membranes
Respiratory: Clear
Cardiac: S1/S2 and Regular Rhythm
GI: Soft, Non Tender and Normal Bowel Sounds
Musculoskeletal: No Cyanosis and No Edema
Skin: Warm and Dry
Neuro: Awake, Alert, AO x 3, Nonfocal/grossly intact, Cranial Nerves Intact and No Sensory Deficits
Psych: Calm and Intact Judgment/Insight
Assessment/Plan
Presentation with Left-Sided Weakness/Slumped on the side of the Commode (with preserved consciousness)
History of Asymptomatic Left Carotid Artery Stenosis
Acute right pure motor lacunar syndrome.
-Neurology consultation appreciated
-Discussed with Dr. Dotson, start Plavix 75 mg today, check CTA Head and Neck, MRI Brain without contrast
-In the past, CTA head/neck showed Left Carotid Bulb 80% stenosis, right carotid bulb 50% stenosis -- will consider vascular evaluation in hospital - previously it was noted that patient could benefit from outpatient carotid interventions
bilaterally to lower patient's stroke risk
-CT Head without acute stroke
-Checked CTA Head and Neck -- with significant carotid stenosis bilaterally
-Patient should stay on Plavix 75 and Lipitor 80 mg daily
-Added Aspirin 81 mg daily (received 325 mg Aspirin in the ER)
-Monitor for GI bleeding
-Await Brain MRI
-Monitor on telemetry
Carotid Artery Stenosis
-Patient has an appointment with Dr. Guzman vascular surgeon on 06/22/25
-Notified Dr. Guzman -- will await MRI Brain results before deciding whether or not to consult vascular surgery
History of Hyperkalemia in Setting of Enalapril
-Potassium normal
Upper GI Bleed/Copious Coffee Ground Emesis on 11/17/24
Gastrointestinal Bleeding/coffee-ground emesis
History of PUD and esophagitis
-Continue daily PPI
-EGD on 03/03/25 was unrevealing, but did show erythematous mucosa
-Colonoscopy on 03/06/25 was also unrevealing for bleed
-Per GI, patient was told he could follow-up outpatient for capsule endoscopy, and he would need repeat colonoscopy in 5 years for surveillance.
-Was supposed to get capsule endoscopy outpatient, but did not since capsule was flushed in the toilet by mistake, as per patient and his
-Monitor CBC
-Will notify Dr. Andre, his warehouse driver
Type 2 Diabetes Mellitus
Hyperglycemia
History of Significant Hypoglycemia
-Accucheck and Sliding Scale Insulin
#Mild Hyponatremia
-PO FR 40 ounces daily
#History of Minimally displaced 10th rib fracture
-From prior chest x-ray on 10/31
#COPD
#Active smoker
-Encourage smoking cessation
#Cardiomyopathy
-Continue dapagliflozin
#History of Right pontine CVA
-Continue Plavix, statin
-Continue newly started Aspirin
#Alcohol use disorder
-Thiamine and folate
-Alcohol withdrawal protocol
#Essential hypertension
-Enalapril
-Low sodium diet
#GERD
#Peptic ulcer disease
#History of Urinary retention secondary to BPH
-Continue tamsulosin
-Bladder scans protocol/monitor for urinary retention
#Hypercholesterolemia
-Continue statin, Zetia
#Previous Weight Loss
-CT AP was checked earlier in 2024 for weight loss, the study was limited but overall unrevealing.
Code Status: Full code
DVT Prophylaxis: SCDs. Lovenox
Diet: Diabetic diet
Anticipated Discharge: Within 24 hours
Subjective/Interval History
-
Date of Service: June 14, 2025
Patient was seen and examined. He denied any new symptoms or complaints.
Objective Data
-
Labs:
Laboratory Results
06/14/25
05:03
WBC 9.2
Hgb 13.5
Hct 38.8 L
Plt Count 241
Sodium 136
Potassium 4.1
Chloride 106
Carbon Dioxide 27
BUN 9
Creatinine 0.8
Glucose 101 H
Calcium 9.2
Vital Signs:
Vital Signs
Temp Pulse Resp BP Pulse Ox
97.5 F 60 14 155/74 97
06/14/25 11:33 06/14/25 11:33 06/14/25 11:33 06/14/25 11:33 06/14/25 11:33
I&O
06/13/25 06/14/25 06/15/25
06:59 06:59 06:59
Intake Total 480 / 480
Balance 480 / 480
[2025-06-14 13:36] LABS: Glycohemoglobin (HgbA1c) 8.7 % (4.0-5.6)
[2025-06-14] MEDS: NOVOLOG FLEXPEN-LOW RESISTANCE 3 UNITS SC ×2 (14:23→17:35)
[2025-06-14 17:09] LABS: Glucose - Point of Care 279 mg/dl (70-99)
[2025-06-14] MEDS: LOVENOX SC (17:11)
[2025-06-14] MEDS: LIPITOR 40 MG PO (17:12)
[2025-06-14 23:31] LABS: Glucose - Point of Care 412 mg/dl (70-99)
[2025-06-15] VITALS (8 sets, daily range): BP systolic 98–171; BP diastolic 54–86; PULSE 73–79; O2SAT 95
[2025-06-15 00:33] LABS: Glucose 358 mg/dl (70-99)
[2025-06-15] MEDS: NOVOLOG FLEXPEN 4 UNITS SC (02:22)
[2025-06-15 05:10] LABS: Glucose - Point of Care 260 mg/dl (70-99)
[2025-06-15 05:58] LABS: Hematocrit 40.2 % (39.0-52.0); Hemoglobin 14.0 g/dL (13.0-18.0); Mean Corp Hgb Conc. 34.8 g/dL (33.0-37.0); Mean Corpuscular Volume 91.2 fL (80.0-94.0); Platelet Count 230 10^3/uL (130-400); Red Cell Dist. Width 12.4 % (11.5-14.5)
[2025-06-15 06:15] LABS: Blood Urea Nitrogen 21 mg/dl (9-20); Calcium 9.4 mg/dl (8.4-10.2); Carbon Dioxide 26 mmol/L (22-30); Chloride 103 mmol/L (98-107); Estimated Creatinine Clearance 70 ml/min; Glucose 236 mg/dl (70-99); Potassium 4.4 mmol/L (3.5-5.1); Sodium 135 mmol/L (135-145); eGFR > 60.00
--- NOTE | 2025-06-15 07:42 | W.PN.HOSP.TC ---
Today's Communication/Plan
-
IV fluids
Consulted GI given hematemesis
See plan
Assessment / Plan
Assessment / Plan
Physical Exam
General: No Apparent Distress and Comfortable
HEENT: NormoCephalic and Moist mucous membranes
Respiratory: Clear
Cardiac: S1/S2 and Regular Rhythm
GI: Soft, Non Tender and Normal Bowel Sounds
Musculoskeletal: No Cyanosis and No Edema
Skin: Warm and Dry
Neuro: Awake, Alert, AO x 3, Nonfocal/grossly intact, Cranial Nerves Intact and No Sensory Deficits
Psych: Calm and Intact Judgment/Insight
Assessment/Plan
Presentation with Left-Sided Weakness/Slumped on the side of the Commode (with preserved consciousness)
History of Asymptomatic Left Carotid Artery Stenosis
Acute right pure motor lacunar syndrome
-Neurology consultation appreciated
-Discussed with Dr. Dotson, start Plavix 75 mg today, check CTA Head and Neck, MRI Brain without contrast
-In the past, CTA head/neck showed Left Carotid Bulb 80% stenosis, right carotid bulb 50% stenosis -- will consider vascular evaluation in hospital - previously it was noted that patient could benefit from outpatient carotid interventions
bilaterally to lower patient's stroke risk
-CT Head without acute stroke
-Checked CTA Head and Neck -- with significant carotid stenosis bilaterally
-Patient should stay on Plavix 75 and Lipitor 80 mg daily
-Added Aspirin 81 mg daily (received 325 mg Aspirin in the ER)
-Per neurology, continue ASA and Plavix for 21 days (Day 1 of Aspirin 81 mg was 06/14/25) -- but now Plavix is on hold as per GI in preparation for upper endoscopy
-Monitor for GI bleeding
-Brain MRI with no strokes
-Monitor on telemetry
Carotid Artery Stenosis
-Patient has an appointment with Dr. Guzman vascular surgeon on 06/22/25
-Notified Dr. Guzman who will see patient outpatient, no need for vascular intervention inpatient
History of Hyperkalemia in Setting of Enalapril
-Potassium normal
Re-occurrence of hematemesis on 06/15/25
Upper GI Bleed/Copious Coffee Ground Emesis on 11/17/24
Gastrointestinal Bleeding/coffee-ground emesis
History of PUD and esophagitis
-EGD on 03/03/25 was unrevealing, but did show erythematous mucosa
-Colonoscopy on 03/06/25 was also unrevealing for bleed
-Per GI, patient was told he could follow-up outpatient for capsule endoscopy, and he would need repeat colonoscopy in 5 years for surveillance.
-Was supposed to get capsule endoscopy outpatient, but did not since capsule was flushed in the toilet by mistake, as per patient and his
-Monitor CBC
-Vomited up concern for bloody vomit on 06/15/25: PPI IV BID and also Carafate
-GI consult placed given patient needs to be on DAPT for suspected TIA -- Plavix held for now given possible need for upper endoscopy
Type 2 Diabetes Mellitus
Hyperglycemia
History of Significant Hypoglycemia
-Accuchecks and Sliding Scale Insulin
#Mild Hyponatremia
-Sodium is currently normal
#History of Minimally displaced 10th rib fracture
-From prior chest x-ray on 10/31
#COPD
#Active smoker
-Encourage smoking cessation
#Cardiomyopathy
-Continue dapagliflozin
#History of Right pontine CVA
-Statin
-Hold home Plavix as above
-Continue newly started Aspirin
#Alcohol use disorder
-Thiamine and folate
-Alcohol withdrawal protocol -- received Ativan overnight 06/14/25 to 06/15/25 for elevated MSAS
#Essential hypertension
-Enalapril
#GERD
#Peptic ulcer disease
#History of Urinary retention secondary to BPH
-Continue tamsulosin
-Bladder scans protocol/monitor for urinary retention
#Hypercholesterolemia
-Continue statin, Zetia
#Previous Weight Loss
-CT AP was checked earlier in 2024 for weight loss, the study was limited but overall unrevealing.
Code Status: Full code
DVT Prophylaxis: SCDs. Lovenox
Diet: Diabetic diet
Anticipated Discharge: 24 - 48 hours
Subjective/Interval History
-
Date of Service: June 15, 2025
Patient was seen and examined. He was doing okay in the morning, overnight he did have MSAS score 5 needing Ativan. Later in the day, he vomiting up some red vomit.
Objective Data
-
Labs:
Laboratory Results
06/15/25 06/15/25
00:00 05:19
WBC 7.0
Hgb 14.0
Hct 40.2
Plt Count 230
Sodium 135
Potassium 4.4
Chloride 103
Carbon Dioxide 26
BUN 21 H
Creatinine 0.8
Glucose 358 H 236 H
Calcium 9.4
Vital Signs:
Vital Signs
Temp Pulse Resp BP Pulse Ox
97.8 F 64 14 171/72 96
06/15/25 03:25 06/15/25 03:25 06/15/25 03:25 06/15/25 03:25 06/15/25 03:25
I&O
06/14/25 06/15/25 06/16/25
06:59 06:59 06:59
Intake Total 480 / 480 960 / 960
Output Total 300 / 300
Balance 480 / 480 660 / 660
[2025-06-15] MEDS: VASOTEC 5 MG PO ×2 (07:53→20:33)
[2025-06-15] MEDS: PROTONIX 40 MG PO (07:53)
[2025-06-15] MEDS: ZETIA 10 MG PO (07:53)
[2025-06-15] MEDS: LOW STRENGTH ASPIRIN 81 MG PO (07:53)
[2025-06-15] MEDS: FLOMAX 0.4 MG PO (07:54)
[2025-06-15] MEDS: PROSCAR 5 MG PO (07:54)
[2025-06-15] MEDS: PLAVIX 75 MG PO (07:54)
[2025-06-15] MEDS: FARXIGA 10 MG PO (07:55)
[2025-06-15 07:58] LABS: Glucose - Point of Care 240 mg/dl (70-99)
[2025-06-15] MEDS: NOVOLOG FLEXPEN-LOW RESISTANCE 2 UNITS SC (08:01)
--- NOTE | 2025-06-15 11:49 | W.PN.NEURO.1 ---
Today's Communication / Plan
-
Continue combined aspirin 81 mg and clopidogrel 75 mg daily for 21 days, then clopidogrel alone
Neuropsychological testing as outpatient
Neuro Assessment/Plan
Assessment
I change in mental status which might have been due to hypertensive urgency. Differential diagnosis include vascular dementia
II. 50-69% Right ICA stenosis
Plan
Continue combined aspirin 81 mg and clopidogrel 75 mg daily for 21 days, then clopidogrel alone
Neuropsychological testing as outpatient
Follow-up as outpatient.
Subjective/Objective
Subjective Data
Date of Service: June 15, 2025
Objective Data
Vital Signs
Temp Pulse Resp BP Pulse Ox
36.8 C 74 14 126/65 97
06/15/25 11:01 06/15/25 11:01 06/15/25 11:01 06/15/25 11:01 06/15/25 11:01
Lab Results
06/15/25 05:19
06/15/25 05:19
PT 13.4 Sec (11.4-14.6) 06/13/25 14:42
INR 0.99 06/13/25 14:42
APTT 25.1 Sec (23.4-35.0) 06/13/25 14:42
Sodium 135 mmol/L (135-145) 06/15/25 05:19
Potassium 4.4 mmol/L (3.5-5.1) 06/15/25 05:19
BUN 21 mg/dl (9-20) H 06/15/25 05:19
Glucose 236 mg/dl (70-99) H 06/15/25 05:19
Calcium 9.4 mg/dl (8.4-10.2) 06/15/25 05:19
LDL Cholesterol, Calc 42 mg/dl 06/14/25 05:03
Patient Allergies
No Known Allergies Allergy (Verified 03/02/25 11:09)
Past History
Past History
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
ED Past Surgical History: Orthopedic (right heel fracture 2009), Tonsilectomy and Urological
Social History
Tobacco: Smoker
Alcohol: Daily
Drug: None
Personal:
Living: with family
Family History
Family History: Other (reviewed and noncontributory)
Medications
-
Medications:
Generic Name Dose Route Start Last Admin
Trade Name Freq PRN Reason Stop Dose Admin
Acetaminophen 650 mg 06/13/25 21:36
Acetaminophen 650 Mg Rectal Suppository RECTAL 07/11/25 21:35
Q4HPRN PRN
ENRIQUEZ, mild pain, or temp >100.4F
Acetaminophen 650 mg 06/13/25 21:36
Acetaminophen 325 Mg Tablet PO 07/11/25 21:35
Q4HPRN PRN
ENRIQUEZ, mild pain, or temp >100.4F
Aspirin 81 mg 06/14/25 08:00 06/15/25 07:53
Aspirin 81 Mg Chewable Tablet PO 07/12/25 07:59 81 mg
DAILY TRAN Administration
Atorvastatin Calcium 40 mg 06/14/25 18:00 06/14/25 17:12
Atorvastatin (Lipitor) 40 Mg Tablet PO 07/12/25 17:59 40 mg
QPM TRAN Administration
Clopidogrel Bisulfate 75 mg 06/14/25 08:00 06/15/25 07:54
Clopidogrel 75 Mg Tablet PO 07/12/25 07:59 75 mg
DAILY TRAN Administration
Dapagliflozin 10 mg 06/14/25 08:00 06/15/25 07:55
Dapagliflozin (Farxiga) 10 Mg Tablet PO 07/12/25 07:59 10 mg
DAILY TRAN Administration
Dextrose 12.5 grams 06/14/25 13:00
Dextrose 50% (0.5 Grams/Ml) 50 Ml Syringe IV 07/12/25 12:59
[id number] PRN
hypoglycemia
Protocol
Ezetimibe 10 mg 06/14/25 08:00 06/15/25 07:53
Ezetimibe (Zetia) 10 Mg Tablet PO 07/12/25 07:59 10 mg
DAILY TRAN Administration
Enalapril Maleate 5 mg 06/13/25 21:36 06/15/25 07:53
Enalapril 5 Mg Tablet PO 07/11/25 21:35 5 mg
BID TRAN Administration
Enoxaparin Sodium 40 mg 06/13/25 21:36 06/14/25 17:11
Enoxaparin Sodium 40 Mg/0.4 Ml Syringe SC 07/11/25 21:35 Not Given
QPM TRAN
Finasteride 5 mg 06/14/25 08:00 06/15/25 07:54
Finasteride 5 Mg Tablet PO 07/12/25 07:59 5 mg
DAILY TRAN Administration
Glucagon 1 mg 06/14/25 13:00
Glucagon 1 Mg Vial IM 07/12/25 12:59
PRN PRN
hypoglycemia
Protocol
Thiamine HCl 500 mg/ Sodium 255 mls @ 255 mls/hr 06/15/25 08:00 06/15/25 09:53
Chloride IV 07/13/25 07:59 Not Given
Q8 TRAN
Insulin Aspart 0 units 06/14/25 15:00 06/15/25 08:01
Insulin Aspart Low Resistance 300 Units/3 Ml Pen.Injctr SC 07/12/25 14:59 2 units
AC TARN Administration
Protocol
Lorazepam 1 mg 06/15/25 01:00
Lorazepam 1 Mg Tablet PO 07/13/25 00:59
Q2HPRN PRN
MSAS 5-7
Pantoprazole Sodium 40 mg 06/14/25 08:00 06/15/25 07:53
Pantoprazole 40 Mg Delayed Release Tablet PO 07/12/25 07:59 40 mg
DAILY TRAN Administration
Sodium Chloride 0 flush 06/13/25 22:00
Sodium Chloride 0.9% (Flush) Syringe IV 07/11/25 21:59
PER PROTOCOL TRAN
Tamsulosin HCl 0.4 mg 06/14/25 08:00 06/15/25 07:54
Tamsulosin 0.4 Mg Capsule PO 07/12/25 07:59 0.4 mg
DAILY TRAN Administration
[2025-06-15 11:51] LABS: Glucose - Point of Care 290 mg/dl (70-99)
[2025-06-15] MEDS: NOVOLOG FLEXPEN-LOW RESISTANCE 3 UNITS SC ×2 (12:12→17:01)
--- NOTE | 2025-06-15 13:29 | CM ---
Addendum entered by Yumiko Garcia 06/15/25 13:41:
Attending notified to place outpatient PT script in chart.
Original Note:
Carotid artery stenosis. MRI brain with no intracranial abnormalities. Discharge POC: Therapy recommendation for outpatient rehab. No need for RN.
Attending notified to place outpatient script in chart.
[2025-06-15] MEDS: LR 1000 IV (13:39)
--- NOTE | 2025-06-15 13:43 | CON.GI ---
Addendum entered and electronically signed by Miley Garcia Do, MD 06/15/25 16:29:
I saw and examined the patient.
The DEBARKER OPERATOR's note was reviewed and I agree with the note.
Comment: Ryan is a 74yo M with h/o ETOH and tob use, DM, COPD and CVA 01/2015 on plavix who presents today for weakness and concern for ICA stenosis. GI consulted for coffee ground emesis witnessed by around lunch time. He had extensive GI
workup in 02/2025 for similar. EGD/colon done at that time with results below. Capsule was done OP with Dr Andre but not retrieved. He denies red or black blood in stools. He does have reflux chronically. Vitals stable, exam thin NAD
conversant anicteric soft, NTTP. Labs reviewed no anemia Hbg [id number]-
Impression
- Coffee ground emesis
In setting of hiatal hernia suspect esophagitis or gastritis
He does have remote h/o PUD
- Stroke
- COPD
- CM
- DM
- H/o PUD
- GERD
- Daily ETOH use 2 beers
- Tobacco use
- HTN
- Hyperlipidemia
- Urinary retention self caths
Recommendations
- Protonix IV BID, carafate
- Hold plavix ok per neurology
- Repeat H/H completely stable. repeat H/H tomorrow
- If Hgb stable can adv to regular diet. If drops can consider inpatient EGD but most recent was done February 2025
- Ok to c/w ASA
- CLD
- ETOH cessation
Will follow with you
Original Note:
Consultation
-
Date/Time Consultation Requested: 06/15/25 1300
Date/Time Consultation Performed: 06/15/25 1345
Requesting Provider: Reuben Quinones MD
Performing Provider: DORY Vicente, Miley Adamson MD
Reason for Consultation: coffee ground emesis
Medical History
Chief Complaint / HPI
Chief Complaint: coffee ground emesis
History of Present Illness:
74-year-old male with past medical history of insulin-dependent diabetes, cardiomyopathy, COPD, gastric ulcers,gastritis, HH, GERD, daily alcohol use, tobacco abuse, hypertension, hyperlipidemia, CVA (right pontine January 2015) on Plavix, colon
polyps, urinary retention with cath daily, ED, falls prior pneumothorax with GI evaluation over last year. He was seen in February with coffee ground emesis with hx of similar symptoms earlier in that year. He had OP evaluation and was set up for
EGD and colonoscopy but ended up back in hospital in February with recurrent nausea and vomiting. He was also noted with hyperglycemia at that time. He proceed for EGD 03/[address] Andre with 4 cm HH, cardia polyp, erythema in antrum, normal
duodenum. bx gastropathy, neg acute and chronic inflammation neg H pylori or metaplasia. 03/06 colonoscopy stricture in rectosigmoid diverticulosis, tattoo seen in rectosigmoid no specimen collected from prior polyp resection. Pt did completed
capsule but was unable to retrieve capsule and no results completed. During prior admission hbg in 12 range. He also completed during that admission CT Abd/pel W Iv And Oral Contr with limitation but some gastric wall thickening Cannot exclude
gastric mass, proximal pancreatic mass or nonobstructing intestinal mass. Cannot exclude some celiac axis chain and gastrohepatic ligament adenopathy.Likely chronic thickening of the wall of the urinary bladder, mildly lobulated. Malignancy would be
unlikely but cannot be entirely excluded. Suggest correlation with urinalysis. Small simple right renal cyst.
Pt now returns 06/13 with left sided weakness with work up per neurology with ICA stenosis. Pt was given ASA and remains on chronic plavix.Asked to see for recurrent hematemesis during admission. Per staff vomited moderate amount of dark
maroon emesis this am after breakfasts. Per patient and spouse, pt had vomiting in past but was improving then recurrence today. + wt loss over time. He denies issues with odynophagia, dysphagia, GERD, abdominal pain, or bowel issues. Pt also
noted with UTI during admission.
Past Medical History
Past Medical History: COPD, CVA, GERD, HTN, Hypercholesterolemia, IDDM, Renal Failure (renal insufficiency ) and Other (Cardiomyopathy, gastric ulcers, gastritis HH, tobacco and ETOH abuse, colon polyps, urinary retention, erectile dysfunction,
prior clavical fx, prior pneumothorax , carotid stenosis )
Past Surgical History: Orthopedic (heel fracture ), Urological (TURP) and Other (Right heel fracture, tonsillectomy, urological procedure)
Social History
Tobacco: Smoker (6-10 cig per day )
Alcohol: Daily (At least 2 beers daily)
Drug: None
Personal:
Living: With Family
Employment: Retired
Family History
Family History: Other (No family history of gastrointestinal malignancy or IBD brother with skin Ca and other brother with bladder CA)
Allergies / Home Medications
Allergy/AdvReac Type Severity Reaction Status Date / Time
No Known Allergies Allergy Verified 03/02/25 11:09
�Medication �Instructions �Recorded
clopidogrel 75 mg tablet 75 mg PO DAILY Blood Clot 05/26/23
Prevention/Tx
atorvastatin 80 mg tablet 80 mg PO QPM High Cholesterol 08/19/23
ezetimibe 10 mg tablet 10 mg PO DAILY High Cholesterol 01/21/24
acetaminophen 500 mg tablet 1,000 mg DAILYPRN PRN mild pain 07/06/24
tamsulosin 0.4 mg capsule 0.4 mg PO DAILY Urinary Issue 11/16/24
dapagliflozin propanediol 10 mg 10 mg PO DAILY 03/02/25
tablet (Farxiga)
enalapril maleate 5 mg tablet 5 mg PO BID Blood Pressure 03/02/25
finasteride 5 mg tablet 5 mg PO DAILY BPH 03/02/25
insulin NPH isoph U-100 human 100 16 unit SC QHS Diabetes 03/02/25
unit/mL subcutaneous suspension
(Humulin N NPH U-100 Insulin
(isophane susp))
insulin NPH isoph U-100 human 100 26 unit SC DAILY Diabetes 03/02/25
unit/mL subcutaneous suspension
(Humulin N NPH U-100 Insulin
(isophane susp))
pantoprazole 40 mg tablet,delayed 40 mg PO DAILY Gastrointestinal 03/02/25
release (Protonix) Issue
amoxicillin 875 mg-potassium 1 tab PO Q12H 5 days #10 tabs 03/06/25
clavulanate 125 mg tablet
Review of Systems
-
History Source: Patient and Family
Constitutional: Reports Weight Loss
EENT: Reports No Symptoms
Respiratory: Reports No Symptoms
Cardiac: Reports Syncope (concern on admission with slumping over )
Abdomen/GI: Reports Nausea and Vomiting (dark emesis )
: Reports Other (chronic st cath )
Musculoskeletal: Reports No Symptoms
Neurological: Reports Weakness
Endocrine: Reports No Symptoms
Hematologic/Lymphatic: Reports Bleeding (dark emesis )
Vital Signs
Temp Pulse Resp BP Pulse Ox
98.3 F 74 14 98/54 97
06/15/25 11:01 06/15/25 11:01 06/15/25 11:01 06/15/25 12:58 06/15/25 11:01
Physical Exam
Exam
General: Other (elderly male with some forgetfulness in exam )
HEENT: Normocephalic and Anicteric
Respiratory: Clear
Cardiac: Regular Rhythm
GI: Soft, Non Tender and Non Distended
Musculoskeletal: No Clubbing and No Cyanosis
Skin: Warm and Dry
Neuro: Awake and Alert
Psych: Calm
Results
WBC 7.0 10^3/uL (4.8-10.8) 06/15/25 05:19
Hgb 14.0 g/dL (13.0-18.0) 06/15/25 05:19
Hct 40.2 % (39.0-52.0) 06/15/25 05:19
MCV 91.2 fL (80.0-94.0) 06/15/25 05:19
Plt Count 230 10^3/uL (130-400) 06/15/25 05:19
Absolute Neuts (auto) 7.3 10^3/uL (1.4-6.5) H 06/13/25 14:42
PT 13.4 Sec (11.4-14.6) 06/13/25 14:42
INR 0.99 06/13/25 14:42
APTT 25.1 Sec (23.4-35.0) 06/13/25 14:42
Sodium 135 mmol/L (135-145) 06/15/25 05:19
Potassium 4.4 mmol/L (3.5-5.1) 06/15/25 05:19
Chloride 103 mmol/L (98-107) 06/15/25 05:19
Carbon Dioxide 26 mmol/L (22-30) 06/15/25 05:19
BUN 21 mg/dl (9-20) H 06/15/25 05:19
Creatinine 0.8 mg/dL (0.7-1.3) 06/15/25 05:19
Calcium 9.4 mg/dl (8.4-10.2) 06/15/25 05:19
Total Bilirubin 0.9 mg/dl (0.2-1.3) 06/13/25 14:42
AST 27 U/L (17-59) 06/13/25 14:42
ALT 27 U/L (0-50) 06/13/25 14:42
Alkaline Phosphatase 44 U/L (38-126) 06/13/25 14:42
Diagnostic Image Results:
03/03/25 CT Abd/pel W Iv And Oral Contr
Markedly limited study as a result of several factors most prominently paucity of intra-abdominal fat and relative paucity of oral contrast. Some some gastric wall thickening at least in part may be due to underdistention. Cannot exclude gastric
mass, proximal pancreatic mass or nonobstructing intestinal mass. Cannot exclude some celiac axis chain and gastrohepatic ligament adenopathy.
Likely chronic thickening of the wall of the urinary bladder, mildly lobulated. Malignancy would be unlikely but cannot be entirely excluded. Suggest correlation with urinalysis.
Small simple right renal cyst.
Prior GI Procedures:
03/03/25 EGD [facility] - No gross lesions in the entire esophagus.
- Z-line irregular, 38 cm from the incisors. Biopsied.
- 4 cm hiatal hernia.
- A ?cardia polyp. Biopsied.
- Erythematous mucosa in the antrum. Biopsied.
- Normal duodenum.
bx gastropathy, neg acute and chronic inflammation neg H pylori or metaplasia
03/06/25 colonoscopy [facility]
- Tortuous colon.
- Stricture in the recto-sigmoid colon.
- Diverticulosis in the recto-sigmoid colon, in the
sigmoid colon and in the descending colon.
- A tattoo was seen in the recto-sigmoid colon. The
tattoo site appeared normal.
04/29/2013 EGD: ([facility]) - Hiatus hernia.
- Z-line irregular,. This was biopsied.
- Gastric ulcers.
- Gastritis. This was biopsied.
- Gastritis. This was biopsied.
- Normal first part of the duodenum. Biopsy was
performed.
11/11/2016 colonoscopy: ([facility]) - Non-thrombosed external hemorrhoids found on perianal
exam.
- The examined portion of the ileum was normal.
- One 5 mm polyp in the cecum, removed with a hot snare.
Resected and retrieved. Injected. Clip was placed.
- One 2 mm polyp in the cecum, removed with a jumbo cold
forceps. Resected and retrieved.
- One 2 mm polyp in the ascending colon, removed with a
jumbo cold forceps. Resected and retrieved.
- One 50 mm polyp in the rectum, removed with a hot
snare. Resected and retrieved. Injected. Clips were
placed.
- Diverticulosis in the sigmoid colon and in the
descending colon.
- Internal hemorrhoids.
bx SS polyps, tubular adenoma rectal polyp with TV adenoma evidence of bleeding, adenomatous head clear of stalk margin
Assessment / Plan
-
74-year-old male with past medical history of insulin-dependent diabetes, cardiomyopathy, COPD, gastric ulcers,gastritis, HH, GERD, daily alcohol use, tobacco abuse, hypertension, hyperlipidemia, CVA (right pontine January 2015) on Plavix, colon
polyps, urinary retention with cath daily, ED, falls prior pneumothorax with GI evaluation over last year. Pt now returns 06/13 with left sided weakness with work up per neurology with ICA stenosis. Pt was given ASA and remains on chronic
plavix. Asked to see for recurrent hematemesis during admission. Pt also noted with UTI during admission.
03/03/[address] Andre with 4 cm HH, cardia polyp, erythema in antrum, normal duodenum. bx gastropathy, neg acute and chronic inflammation neg H pylori or metaplasia.
03/06/25 colonoscopy stricture in rectosigmoid diverticulosis, tattoo seen in rectosigmoid no specimen collected from prior polyp resection.
Pt did completed capsule but was unable to retrieve capsule and no results completed.
02/2025 CT Abd/pel W Iv And Oral Contr with limitation but some gastric wall thickening Cannot exclude gastric mass, proximal pancreatic mass or nonobstructing intestinal mass. Cannot exclude some celiac axis chain and gastrohepatic ligament
adenopathy.Likely chronic thickening of the wall of the urinary bladder, mildly lobulated. Malignancy would be unlikely but cannot be entirely excluded. Suggest correlation with urinalysis. Small simple right renal cyst.
-dark emesis with hx prior vomiting in February
-concern for TIA symptoms/syncope with ICA stenosis on chronic Plavix and ASA given during admission
-UTI
-hx HH/GERD
-hx stricture recto sigmoid
-hx gastritis/gastric ulcers
-hx colon polyps
-abnormal CT in February as noted
-IDDM hbg A1c 8.7
-Daily ETOH use, tobacco abuse
other med problems:
-cardiomyopathy
- COPD
- hypertension
- hyperlipidemia
- CVA (right pontine January 2015) on Plavix
-urinary retention with cath daily
- ED
- falls
PLAN:
etiology of symptoms related to HH with gastritis with daily ETOH use , gastroparesis with hx IDDM with elevated Hbg A1c, underlying constipation with current UTI vs other
Dr. Adamson review with neurology for Plavix hold - pt had dose this am -- if hbg stable consider resume tomorrow if no recurrent bleeding with recent concern for TIA symptoms, cont ASA
PPI BID - would continued BID on discharge for 1 month than daily
cont carafate with wean on discharge
trend hbg for repeat hbg now and in am
if any drop in hbg consider EGD
pt with wt loss -- if continued loss consider repeat CT with abnormal CT in February-- very limited study
if recurrent vomiting consider repeat sooner
discussed ETOH and tobacco abstinence
cont to treat UTI
ok for clear diet
Pt and asked about discharge - discussed recommended continued admission to monitor hbg and for recurrent vomiting-- they will consider options would need to sign out AMA if decides to go
-
-
Thank you for consultation and allowing me to participate in the patient's care. Please call the registration scheduling specialist GI physician during the after hours with any questions or concerns.
[2025-06-15] MEDS: AMOXIL 500 MG PO ×2 (14:14→22:46)
[2025-06-15 15:06] LABS: Hemoglobin 14.0 g/dL (13.0-18.0)
[2025-06-15 16:36] LABS: Glucose - Point of Care 294 mg/dl (70-99)
--- NOTE | 2025-06-15 16:57 | W.PN.UPDATE ---
Update Note
Progress Note Update
Patient having urinary retention on bladder scans
[2025-06-15] MEDS: LOVENOX SC (16:59)
[2025-06-15] MEDS: LIPITOR 80 MG PO (17:01)
[2025-06-15] MEDS: CARAFATE SUSPENSION 1 GM PO ×2 (17:01→22:47)
[2025-06-15] MEDS: NSS (PRESERVATIVE FREE) 10 ML IV (20:33)
[2025-06-15] MEDS: PROTONIX IV 40 MG IV (20:33)
[2025-06-15 21:34] LABS: Glucose - Point of Care 304 mg/dl (70-99)
[2025-06-15] MEDS: ZOFRAN 4 MG IV (23:52)
[2025-06-16] VITALS (19 sets, daily range): BP systolic 100–153; BP diastolic 50–80; BMI 19.7
[2025-06-16] MEDS: COMPAZINE 5 MG IV (01:48)
[2025-06-16] MEDS: LR 1000 IV (03:49)
[2025-06-16 05:37] LABS: Glucose - Point of Care 472 mg/dl (70-99)
[2025-06-16] MEDS: AMOXIL 500 MG PO ×3 (05:47→20:45)
[2025-06-16 05:49] LABS: Hematocrit 38.1 % (39.0-52.0); Hemoglobin 12.6 g/dL (13.0-18.0); Mean Corp Hgb Conc. 33.1 g/dL (33.0-37.0); Mean Corpuscular Volume 95.0 fL (80.0-94.0); Platelet Count 225 10^3/uL (130-400); Red Cell Dist. Width 12.8 % (11.5-14.5)
[2025-06-16 06:18] LABS: Blood Urea Nitrogen 40 mg/dl (9-20); Calcium 9.2 mg/dl (8.4-10.2); Carbon Dioxide 7 mmol/L (22-30); Chloride 97 mmol/L (98-107); Estimated Creatinine Clearance 33 ml/min; Glucose 528 mg/dl (70-99); Magnesium 1.8 mg/dl (1.6-2.3); Potassium 5.9 mmol/L (3.5-5.1); Sodium 132 mmol/L (135-145); eGFR 41.52
--- NOTE | 2025-06-16 06:48 | W.PN.UPDATE ---
Update Note
Progress Note Update
~ 5:30 Per RN, patient c/o not feeling well, patient thought his sugar was low. Accucheck completed, RR hi, stat glucose lab ordered, result 528. AM labs resulted, Anion gap 33. Patient appears to be in DKA. Orders placed for transfer to ICU and DKA
orders placed.
--- NOTE | 2025-06-16 08:03 | W.PN.HOSP.TC ---
Today's Communication/Plan
-
Continue DKA management in the intensive care unit
Assessment / Plan
Assessment / Plan
Physical Exam
General: No Apparent Distress and Comfortable
HEENT: Normocephalic and Moist mucous membranes
Respiratory: Clear
Cardiac: S1/S2 and Regular Rhythm
GI: Soft, Non Tender and Normal Bowel Sounds
Musculoskeletal: No Cyanosis and No Edema
Skin: Warm and Dry
Neuro: Confused
Psych: Calm
Assessment/Plan
Diabetic Ketoacidosis overnight 06/15/25 to 06/16/25
Type 2 Diabetes Mellitus
Hyperglycemia -- chronically in the 300s
History of Significant Hypoglycemia
-IV Fluids, Insulin Drip
-Once blood glucose is less than 250mg/dL, then change IVF to dextrose containing IVF
-Follow DKA protocol
-Close monitoring of potassium and BMP
-Monitor patient in ICU
Leukocytosis
Urine culture with enterococcus
-Continue Amoxicillin
-May need to broaden antibiotics if patient decompensates
-Check blood cultures
Presentation with Left-Sided Weakness/Slumped on the side of the Commode (with preserved consciousness)
History of Asymptomatic Left Carotid Artery Stenosis
Acute right pure motor lacunar syndrome
-Neurology consultation appreciated
-Discussed with Dr. Dotson, start Plavix 75 mg today, check CTA Head and Neck, MRI Brain without contrast
-In the past, CTA head/neck showed Left Carotid Bulb 80% stenosis, right carotid bulb 50% stenosis -- will consider vascular evaluation in hospital - previously it was noted that patient could benefit from outpatient carotid interventions
bilaterally to lower patient's stroke risk
-CT Head without acute stroke
-Checked CTA Head and Neck -- with significant carotid stenosis bilaterally
-Patient should stay on Plavix 75 and Lipitor 80 mg daily
-Added Aspirin 81 mg daily (received 325 mg Aspirin in the ER)
-Per neurology, continue ASA and Plavix for 21 days (Day 1 of Aspirin 81 mg was 06/14/25) -- but now Plavix is on hold as per GI in preparation for upper endoscopy
-Monitor for GI bleeding
-Brain MRI with no strokes
-Monitor on telemetry
Carotid Artery Stenosis
-Patient has an appointment with Dr. Guzman vascular surgeon on 06/22/25
-Notified Dr. Guzman who will see patient outpatient, no need for vascular intervention inpatient
History of Hyperkalemia in Setting of Enalapril
-Monitor potassium
Re-occurrence of hematemesis on 06/15/25
Upper GI Bleed/Copious Coffee Ground Emesis on 11/17/24
Gastrointestinal Bleeding/coffee-ground emesis
History of PUD and esophagitis
-EGD on 03/03/25 was unrevealing, but did show erythematous mucosa
-Colonoscopy on 03/06/25 was also unrevealing for bleed
-Per GI, patient was told he could follow-up outpatient for capsule endoscopy, and he would need repeat colonoscopy in 5 years for surveillance.
-Was supposed to get capsule endoscopy outpatient, but did not since capsule was flushed in the toilet by mistake, as per patient and his
-Monitor CBC
-Vomited up concern for bloody vomit on 06/15/25: PPI IV BID and also Carafate
-GI consult placed given patient needs to be on DAPT for suspected TIA -- Plavix held for now given possible need for upper endoscopy
#Mild Hyponatremia
-Sodium is currently normal
#History of Minimally displaced 10th rib fracture
-From prior chest x-ray on 10/31
#COPD
#Active smoker
-Encourage smoking cessation
#Cardiomyopathy
-Continue dapagliflozin
#History of Right pontine CVA
-Statin
-Hold home Plavix as above
-Continue newly started Aspirin
#Alcohol use disorder
-Thiamine and folate
-Alcohol withdrawal protocol -- received Ativan overnight 06/14/25 to 06/15/25 for elevated MSAS
#Essential hypertension
-Enalapril
#GERD
#Peptic ulcer disease
#History of Urinary retention secondary to BPH
-Continue tamsulosin
-Bladder scans protocol/monitor for urinary retention
#Hypercholesterolemia
-Continue statin, Zetia
#Previous Weight Loss
-CT AP was checked earlier in 2024 for weight loss, the study was limited but overall unrevealing.
Code Status: Full code
DVT Prophylaxis: SCDs. Lovenox
Diet: Diabetic diet
I updated patient's today about patient's Diabetic Ketoacidosis and transfer to ICU. I answered all of her questions and concerns to satisfaction.
Diabetic Ketoacidosis is a high risk encounter.
Anticipated Discharge: > 48 hours
Subjective/Interval History
-
Date of Service: June 16, 2025
Patient was seen and examined. Overnight, he reported not feeling well, and had to be transferred to ICU given development of Diabetic Ketoacidosis.
Objective Data
-
Labs:
Laboratory Results
06/16/25 06/16/25 06/16/25
05:16 05:40 07:52
WBC 18.5 H Pending
Hgb 12.6 L Pending
Hct 38.1 L Pending
Plt Count 225 Pending
HCO3
Sodium 132 L Pending
Potassium 5.9 H D Pending
Chloride 97 L Pending
Carbon Dioxide 7 L* Pending
BUN 40 H Pending
Creatinine 1.7 H Pending
Glucose 528 H* Cancelled Pending
Calcium 9.2 Pending
Total Bilirubin Pending
AST Pending
ALT Pending
Alkaline Phosphatase Pending
06/16/25 06/16/25 06/16/25
07:57 08:00 10:00
WBC
Hgb
Hct
Plt Count
HCO3 Pending
Sodium
Potassium Pending Pending
Chloride
Carbon Dioxide
BUN
Creatinine
Glucose
Calcium
Total Bilirubin
AST
ALT
Alkaline Phosphatase
06/16/25 06/16/25 06/16/25
12:00 14:00 16:00
WBC
Hgb
Hct
Plt Count
HCO3
Sodium
Potassium Pending Pending Pending
Chloride
Carbon Dioxide
BUN
Creatinine
Glucose
Calcium
Total Bilirubin
AST
ALT
Alkaline Phosphatase
06/16/25 06/16/25 06/16/25
18:00 20:00 22:00
WBC
Hgb
Hct
Plt Count
HCO3
Sodium
Potassium Pending Pending Pending
Chloride
Carbon Dioxide
BUN
Creatinine
Glucose
Calcium
Total Bilirubin
AST
ALT
Alkaline Phosphatase
Vital Signs:
Vital Signs
Temp Pulse Resp BP Pulse Ox
98.2 F 72 16 100/64 94
06/16/25 03:00 06/16/25 03:00 06/16/25 03:00 06/16/25 03:00 06/16/25 03:00
I&O
06/15/25 06/16/25 06/17/25
06:59 06:59 06:59
Intake Total 960 / 960 1140 / 1140
Output Total 300 / 300 1800 / 1800
Balance 660 / 660 -660 / -660
[2025-06-16 08:06] LABS: Hematocrit 38.3 % (39.0-52.0); Hemoglobin 12.5 g/dL (13.0-18.0); Mean Corp Hgb Conc. 32.6 g/dL (33.0-37.0); Mean Corpuscular Volume 95.3 fL (80.0-94.0); Platelet Count 213 10^3/uL (130-400); Red Cell Dist. Width 12.9 % (11.5-14.5)
[2025-06-16 08:10] LABS: B.E. -19.4 mmol/L; O2 Saturation % 82.9 % (94-98); PCO2 29 mmHg (35-48)
[2025-06-16 08:12] LABS: HCO3 9.0 mmol/L (21-28); PO2 59 mmHg (83-108)
[2025-06-16] MEDS: NSS 1000 IV ×4 (08:13→12:08)
--- NOTE | 2025-06-16 08:20 | CON.INTV ---
Consultation
Consultation Request
Date/Time Consultation Requested: 06/16/2025 - 631
Date/Time Consultation Performed: 06/16/2025 - 810
Requesting Provider: DORY Howell
Performing Provider: Dr. Lynch
Reason for Consultation: DKA/AMS
Medical History
-
Chief Complaint: Left arm weakness
History of Present Illness:
75-year-old M with PMHx of DM type 1.5, COPD, alcohol use disorder, tobacco use disorder (0.5PPD), GERD and Hx of right pontine CVA who presents with left arm weakness. His blood sugar was in the 30s at home prior to EMS arriving. He was Dx with
a TIA. Initial blood glucose was 150, and later on admission, his POCT glucose was 74. Initial CT head was negative for acute CVA. CTA head/neck showed old lacunar infarcts, and 50-69% proximal right ICA stenosis. Initial CXR negative for acute
cardiopulmonary process. Neuro consulted and had concern for right lacunar stroke. Given ASA 325mg in the ER and NS 0.9% x 1 L, and admitted to telemetry. Brain MRI on 06/15/2025 was negative for an acute CVA. Patient's blood sugar began to rise on
the morning of 06/15, and it severely increased this morning (06/16) with glucose on his chemistry lab of 528, with significant metabolic acidosis with serum bicarbonate level of 7, ROSSY with creatinine 1.7, and hyperkalemia with potassium initially
5.9 and worsened to 6.4. Patient diagnosed with DKA, started on insulin drip and transferred to the ICU for further care. Medical Research Scientist services consulted for additional management/recommendations.
Pt seen and evaluated this AM. Insulin being started. Developed expressive aphasia this morning. Stroke alert called. CT head negative for acute CVA. Currently on NS bolus, and insulin gtt running at 6 units/hr. He is following commands, but
is nauseous and just vomited brown fluid. He did have coffee ground emesis earlier this hospitalization. Remains on PPI. Current heart rate 102, saturating 89% on 4 L/min and BP 138/76. Patient's , Sravani, at bedside and all questions were
answered.
PMHx: Diabetes mellitus type 1.5, hyperlipidemia, alcohol use disorder, fatty liver, tobacco use disorder, GERD, right pontine CVA, COPD, Hx of COVID-19 (05/2023), chronic HFpEF, history of CAP (January 2024), history of right-sided traumatic PTX (11/15),
colonic polyps, erectile dysfunction, gastric ulcers, right heel fracture (2009)
PSHx: Tonsillectomy (October 2007); collarbone repair, TURP (07/13/2024)
Past Medical History
Past Medical History: Other (Above as per HPI)
Past Surgical History: Other (Above as per HPI)
Social History
Tobacco: Smoker (Currently smokes 0.5 PPD, otherwise smokes 3/4 - 1 PPD x 25-30 years)
Alcohol: Daily
Drug: None
Personal:
Living: With Family
Family History
Family History: CAD (Father) and Cancer (Brother: Prostate cancer; sibling: Breast cancer)
Allergies / Home Medications
Allergies
Allergy/AdvReac Type Severity Reaction Status Date / Time
No Known Allergies Allergy Verified 03/02/25 11:09
Home Medications
�Medication �Instructions �Recorded �Confirmed �Last Taken �Type
clopidogrel 75 mg tablet 75 mg PO DAILY Blood Clot 05/26/23 03/02/25 11/16/24 History
Prevention/Tx
atorvastatin 80 mg tablet 80 mg PO QPM High Cholesterol 08/19/23 03/02/25 11/15/24 History
ezetimibe 10 mg tablet 10 mg PO DAILY High Cholesterol 01/21/24 03/02/25 11/16/24 History
acetaminophen 500 mg tablet 1,000 mg DAILYPRN PRN mild pain 07/06/24 03/02/25 11/16/24 History
tamsulosin 0.4 mg capsule 0.4 mg PO DAILY Urinary Issue 11/16/24 03/02/25 11/16/24 History
dapagliflozin propanediol 10 mg 10 mg PO DAILY 03/02/25 03/02/25 Unknown History
tablet (Farxiga)
enalapril maleate 5 mg tablet 5 mg PO BID Blood Pressure 03/02/25 03/02/25 Unknown History
finasteride 5 mg tablet 5 mg PO DAILY BPH 03/02/25 03/02/25 Unknown History
insulin NPH isoph U-100 human 100 16 unit SC QHS Diabetes 03/02/25 03/02/25 Unknown History
unit/mL subcutaneous suspension
(Humulin N NPH U-100 Insulin
(isophane susp))
insulin NPH isoph U-100 human 100 26 unit SC DAILY Diabetes 03/02/25 03/02/25 Unknown History
unit/mL subcutaneous suspension
(Humulin N NPH U-100 Insulin
(isophane susp))
pantoprazole 40 mg tablet,delayed 40 mg PO DAILY Gastrointestinal 03/02/25 03/02/25 Unknown History
release (Protonix) Issue
amoxicillin 875 mg-potassium 1 tab PO Q12H 5 days #10 tabs 03/06/25 Unknown Rx
clavulanate 125 mg tablet
Review of Systems
-
Unable to Obtain full review of systems at this time due to: Acuity
Vitals / Labs / Diagnostic Testing
Vital Signs
Temp Pulse Resp BP Pulse Ox
98.2 F 72 16 100/64 94
06/16/25 03:00 06/16/25 03:00 06/16/25 03:00 06/16/25 03:00 06/16/25 03:00
Lab Data
06/16/25 07:52
Laboratory Results
06/16/25
07:57
pH 7.10 L*
pCO2 29 L
pO2 59 L*
HCO3 9.0 L*
O2 Delivery Level
Microbiology
06/13/25 16:50 Urine Urine Culture - Final
Enterococcus faecalis
Diagnostic Testing:
Physical Exam
-
HEENT: Normocephalic and Anicteric
Cardiovascular: S1/S2, Murmur (JOLIE, heard in anterior precordium) and Peripheral Edema (negative)
Respiratory: Wheeze (negative), Rales (negative), Rhonchi (negative) and Non-Labored Respirations
GI: Soft, Non Distended, Non Tender and Normal Bowel Sounds
Neurology: Tremors (negative) and Other (Lethargic although easily arousable to voice but then quickly falls back asleep)
Skin: Warm and Dry
General: Respiratory Distress (negative), Fever (negative) and Chills (negative)
Assessment
-
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 His blood sugar was in the 30s at home prior to EMS arriving. He
was Dx with a TIA. Initial blood glucose was 150, and later on admission, his POCT glucose was 74. Initial CT head was negative for acute CVA. CTA head/neck showed old lacunar infarcts, and 50-69% proximal right ICA stenosis. Initial CXR negative
for acute cardiopulmonary process. Neuro consulted and had concern for right lacunar stroke. Given ASA 325mg in the ER and NS 0.9% x 1 L, and admitted to telemetry. Brain MRI on 06/15/2025 was negative for an acute CVA. Patient's blood sugar began
to rise on the morning of 06/15, and it severely increased this morning (06/16) with glucose on his chemistry lab of 528, with significant metabolic acidosis with serum bicarbonate level of 7, ROSSY with creatinine 1.7, and hyperkalemia with potassium
initially 5.9 and worsened to 6.4. Patient diagnosed with DKA, started on insulin drip and transferred to the ICU for further care. Medical Research Scientist services consulted for additional management/recommendations.
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
traumatic PTX (11/15), colonic polyps, erectile dysfunction, gastric ulcers, right heel fracture (2009)
Impression:
#DM type II (uncontrolled: A1c 8.7 on 06/14/2025) complicated by DKA
#Metabolic acidosis with increased anion gap due to DKA + ROSSY
#ROSSY
#Coffee-ground emesis (prior to arriving to ICU - now resolved)
#Expressive aphasia/AMS due to TME (CT head negative for acute CVA on 06/16/2025)
#TIA
#Carotid artery stenosis with proximal R-ICA stenosis (50-69% stenosis via CTA head/neck � 06/13/2025)
#UTI due to E. faecalis
#Hyperbilirubinemia
#GERD
Plan:
- Given patient's lab findings with hyperglycemia, acidosis and nausea/vomiting, this is consistent with DKA
- Continue insulin gtt and NS 0.9% at 250cc/hr
- Of note, patient's BG are usually in the 300s (per )
- Serial chemistries with q4hr BMP and serial blood gas with monitor pH and pCO2 --> if pH<7.1 then would start bicarb gtt
- Avoid hypoglycemia and continue q1hr POCT glucose
- Once BG <250mg/dL, then change IVF to dextrose containing IVF
- Once [K] is <5.3 then will add potassium to his IVF
- Diabetic VINER OPERATOR consult
- Trend serum HCO3
- Once AG is closed x2 with serum HCO3 >18 then will transition off insulin gtt; of note, b/c he has an ROSSY his serum HCO3 may lag behind being corrected
- Renally dose all meds
- Avoid nephrotoxic agents
- Trend UOP and daily sCr
- Continue with amoxicillin
- Check set of blood Cx given his rising WBC
- May need to broaden Abx if he deteriorates further
- Trend WBC and monitor temperature curve
- Maintain SpO2 >90-94%; currently on 4L/min NC
- Aspiration precautions, arslan given he is nauseous and vomiting this AM
- Elevate HOB >30-45�
- prn nebulized bronchodilators - not currently bronchospastic
- Once his mentation improves, then would encourage incentive spirometer use 10x per hour for at least 4 hrs a day
- Maintain MAP>65
- Replete electrolytes with K>4, Mg>2
- Trend H/H and transfuse if needed to keep Hb>7-8g/dL; keep plt>20k, unless there is concern for bleeding then keep plt>50k
- Continue PPI given recent coffee ground emesis, especially with a history of gastric ulcers, although no stomach ulcers seen on recent EGD on 03/03/2025, as there was a 4 cm hiatal hernia with erythematous mucosa in the stomach antrum with grade a
esophagitis at the GEJ and a questionable polyp in the stomach cardia
- DVT ppx: LMWH
Code status: Full code
Continue ICU level of care for this critically ill patient
Critical care statement: A total of 38 minutes of critical care time was provided for this patient today. This includes management of unstable vital signs, evaluation of the patient at bedside, reviewing the patient's pertinent medical records
including radiographs, microbiology, laboratory evaluations, and discussion with primary team, consultants, pharmacy, nutrition, physical therapy, case management, charge nurse, critical care nursing, and respiratory therapy.
Data:
Brain MRI 06/15/2025:
No acute intracranial abnormality noted. Advanced chronic senescent changes redemonstrated.
CTA head/neck with/without IV contrast 06/13/2025:
No acute intracranial pathology.
Moderate atrophy. Stable.
Moderate periventricular small vessel ischemic disease. Stable.
Old lacunar infarcts. Stable.
No acute vascular pathology. No M1 and M2 occlusion.
Less than 50% distal right common carotid artery stenosis
50-69% proximal right internal carotid stenosis
50-69% stenosis of the origin of the right vertebral artery
Less than 50% stenosis of the distal left common carotid artery. 50-69% stenosis of the proximal left internal carotid artery.
Multilevel degenerative disc disease of the cervical spine.
Less than grade 1 anterolisthesis of C2 on C3
CXR 06/13/2025:
No acute disease of the chest.
Findings suggesting mild COPD. Progressed.
--- NOTE | 2025-06-16 08:23 | PN.DE.MGMTRT ---
Insulin Management
- -
06/16/2025: Diabetes management Consult
75 year old male admitted on 06/14 for Abrupt onset of change in mental status due to toxic metabolic encephalopathy. There were no findings suggestive of stroke. PMH: Cardiomyopathy, COPD, gastric ulcers,gastritis, HH, GERD, daily alcohol use,
tobacco abuse, hypertension, hyperlipidemia, CVA (right pontine January 2015) on Plavix, colon polyps, urinary retention with cath daily, Erectile Dysfunction, falls, pneumothorax and T1DM- was dx at 37 years old.
Patient is somnolent and lethargic, unable to answer questions. Glucose on admission was 150 this AM 528, GAP is open at 20.
at bedside and very supportive. States pt has had diabetes over 40 years and that Patient is managed by his PCP Dr. Broussard. He is now using a CGM-Dexcom for glucose monitoring but also has fingerstick device. states that pt has continued
to smoke (1 ppd) and drink extensively and that he has lost ~30lbs since February this year. He does not eat much-eats the same foods everyday, 1 hardboiled egg and a half [place] muffin for breakfast and a light dinner of PBJ and banana sandwich with
light beers each night. he has had less episodes of Hypoglycemia at home since starting CGM use that she manages the CGM alarms and is usually able to notice if his glucose is trending down before it becomes severely low.
Prior to admission was taking Farxiga 10 mg daily, NPH 26 units in AM and 16 units at bedtime. A1C 8.7%, Cr 1.7, eGFR 41.52.
Patient currently receiving DKA insulin infusion, glucose range 472 to 528, requiring 6 units per hour.
Will continue insulin infusion until GAP has closed x2 BMPs.
IF GAP closes later today should resume his outpatient regimen with NPH at half dose 1 hr before turning drip off then resume 26 units ins AM and 16 units in PM if diet is resumed and pt is tolerating it.
Discontinue Farxiga.
Discussed with nurse Will cont to follow.
Diabetes History
- -
Type of Diabetes: 1
Pre-Admission Diabetes Regimen
06/16/25
05:16
Creatinine 1.7 H
Lab Results
Hemoglobin A1c Cancelled 06/14/25 12:29
Insulin Pump Settings
IP Diabetes Regimen
06/15/25 06/15/25 06/15/25
11:50 16:34 21:33
Glucose
POC Glucose 290 H 294 H 304 H
06/16/25 06/16/25 06/16/25
05:16 05:34 05:40
Glucose 528 H* Cancelled
POC Glucose 472 H*
Patient Education
--- NOTE | 2025-06-16 08:26 | W.PN.NEURO.1 ---
Addendum entered and electronically signed by Bobby Ramon MD 06/16/25 11:47:
Studies reviewed.
I have personally examined the patient. I reviewed and agree with the BI SOLUTIONS ARCHITECT's Note.
My addenda:
Arousable, eyes closed after 5 seconds of interaction. No acute distress.
Speech reduced output, clear.
Follows 2-step requests w/ significant difficulty. No tremor.
Extra-ocular movements grossly intact.
Facial movements full and symmetric. Hearing intact to normal conversational volume.
Normal UE movements bilaterally.
Neck: full ROM.
Chest: no dyspnea
Heart: no JVD
Ext: (-) Clubbing, (-) Cyanosis, (-) Edema
IMPRESSIONS/RECOMMENDATIONS:
Abrupt onset of change in mental status. A stroke alert was activated.
Due to toxic metabolic encephalopathy. There were no findings suggestive of stroke
Supportive care
Continue plan of dual antiplatelet therapy with return to clopidogrel alone after 21 days
Goal of normoglycemia
Goal of normotension
No clear indication patient requires advanced neuroimaging at this time
Will continue to follow as needed.
Original Note:
Documented by User: Yanet Ziegler NP 06/16/25 10:20
Today's Communication / Plan
-
.
Neuro Assessment/Plan
Assessment
This is a 75-year-old RH male who presented to [facility] on 06/13/25 with transient confusion and left hemiparesis. Blood pressure was 186/68 on arrival.
-MRI brain 06/15/25: No acute intracranial abnormality noted. Advanced chronic senescent changes redemonstrated.
-CTA head/neck 06/13/25: There is severe calcified plaque of the distal right common carotid artery causing less than 50% stenosis and of the proximal right internal carotid artery causing 50-69% stenosis. There is severe calcified plaque of the
carotid siphon. There is moderate calcified plaque of the origin of the right vertebral artery causing 50-69% stenosis. There is severe calcified plaque of the distal left common carotid artery causing less than 50% stenosis. There is severe
calcified plaque of the left proximal internal carotid artery causing 50-69% stenosis. There is severe calcified plaque of the carotid siphon.
I. First occurence of change in mental status might have been due to hypertensive urgency. Differential diagnosis include vascular dementia. MRI is negative for stroke.
II. Change in mental status on 06/16/25 is likely due to profound toxic metabolic encephalopathy, low concern for stroke.
III. 50-69% Right ICA stenosis.
Plan
Supportive care.
Do not see a role for further neurological imaging at this time.
Follow-up with Vascular surgery as an outpatient for carotid stenosis.
Continue combined aspirin 81 mg and clopidogrel 75 mg daily for 21 days, then clopidogrel alone
Goal normotension.
LDL goal <70. LDL is 42. Continue atorvastatin 80mg daily.
Goal normoglycemia.
Provide patient's family with a stroke education packet.
Neuropsychological testing as outpatient
Follow-up as outpatient.
Subjective/Objective
Subjective Data
Date of Service: June 16, 2025
Patient developed diabetic ketoacidosis overnight, his blood glucose at 0530 was 528 with an anion gap of 33. Around 0810 patient's speech became more dysarthric, he was confused, and mildly aphasic prompting a stroke alert to be activated. CT head
was obtained and is negative for any acute abnormalities. Blood sugar is now 609, pO2 59. NIHSS is currently 2 for mild dysarthria and confusion. He is not a candidate for TNK/IAT due to low NIHSS, symptomatology likely due to profound metabolic
disturbances.
Objective Data
Vital Signs
Temp Pulse Resp BP Pulse Ox
98.2 F 72 16 100/64 94
06/16/25 03:00 06/16/25 03:00 06/16/25 03:00 06/16/25 03:00 06/16/25 03:00
Lab Results
06/16/25 07:52
PT 13.4 Sec (11.4-14.6) 06/13/25 14:42
INR 0.99 06/13/25 14:42
APTT 25.1 Sec (23.4-35.0) 06/13/25 14:42
Sodium 132 mmol/L (135-145) L 06/16/25 05:16
Potassium 5.9 mmol/L (3.5-5.1) H D 06/16/25 05:16
BUN 40 mg/dl (9-20) H 06/16/25 05:16
Glucose Cancelled 06/16/25 05:40
Calcium 9.2 mg/dl (8.4-10.2) 06/16/25 05:16
LDL Cholesterol, Calc 42 mg/dl 06/14/25 05:03
Patient Allergies
No Known Allergies Allergy (Verified 03/02/25 11:09)
LDL Level: <70, continue statin
Review of Systems
-
Unable to obtain full review of systems at this time due to: Lethargy
Physical Exam
-
General: No Apparent Distress
Eyes: No Ptosis and PERRLA
HEENT: Normocephalic and Atraumatic
Neck: Full Range of Motion
GI: Non-distended
Psych: Confused
Extended Neurological Exam
Mood & Affect: Mood Unremarkable and Affect Unremarkable
Attention Span & Concentration: Lethargic, Closes Eyes after Stimulation and Mild Difficulty with 2 Step Request
Memory: Reduced
Tremor: Hand Tremor Absent and Head Tremor Absent
Involuntary Movement: None
Speech: Quantity Unremarkable, Rate of Production Unremarkable and Dysarthric
Cranial Nerve II: Left Eye: Pupillary Reactivity Unremarkable, Pupillary Size Unremarkable and Visual Jang Intact
Cranial Nerve II: Right Eye: Pupillary Reactivity Unremarkable, Pupillary Size Unremarkable and Visual Jang Intact
Cranial Nerves III, IV, : Extraocular Movement: Extraocular Movement Full in all Directions
Cranial Nerve V: Facial Sensation: Intact to Light Touch
Cranial Nerve VII: Facial Symmetry: Normal Facial Symmetry
Cranial Nerve VIII: Hearing: Unremarkable Hearing to Normal Conversational Volume
Cranial Nerves IX, X: Palate Movement: Palate Elevation Symmetric
Cranial Nerve XII: Tongue Protusion: Midline
Muscle Strength, Overall: Full Throughout
Muscle Bulk & Tone: Bulk Unremarkable and Tone Unremarkable
Pronator Drift: No Drift in Upper Extremities and No Drift in Lower Extremities
Touch Sensation: Unable to Assess
Coordination: [id number] Testing Unremarkable
Data Reviewed
-
CT Head: Report Reviewed and Image Reviewed
Labs: Report Reviewed
Lipid Profile: Report Reviewed
HgbA1C: Report Reviewed
Reviewed with: Physician, Nurse and Patient
Medications
-
Active Medications
Generic Name Dose Route Start Last Admin
Trade Name Freq PRN Reason Stop Dose Admin
Acetaminophen 650 mg 06/13/25 21:36
Acetaminophen 650 Mg Rectal Suppository RECTAL 07/11/25 21:35
Q4HPRN PRN
ENRIQUEZ, mild pain, or temp >100.4F
Acetaminophen 650 mg 06/13/25 21:36
Acetaminophen 325 Mg Tablet PO 07/11/25 21:35
Q4HPRN PRN
ENRIQUEZ, mild pain, or temp >100.4F
Amoxicillin 500 mg 06/15/25 14:00 06/16/25 05:47
Amoxicillin 500 Mg Capsule PO 06/20/25 13:59 500 mg
Q8H TRAN Administration
Aspirin 81 mg 06/14/25 08:00 06/16/25 09:14
Aspirin 81 Mg Chewable Tablet PO 07/12/25 07:59 81 mg
DAILY TRAN Administration
Atorvastatin Calcium 80 mg 06/15/25 18:00 06/15/25 17:01
Atorvastatin (Lipitor) 80 Mg Tablet PO 07/13/25 17:59 80 mg
QPM TRAN Administration
Clopidogrel Bisulfate 75 mg 06/14/25 08:00 06/15/25 07:54
Clopidogrel 75 Mg Tablet PO 07/12/25 07:59 75 mg
On Hold: 06/15/25 14:01 DAILY TRAN Administration
Dextrose 12.5 grams 06/14/25 13:00
Dextrose 50% (0.5 Grams/Ml) 50 Ml Syringe IV 07/12/25 12:59
[id number] PRN
hypoglycemia
Protocol
Ezetimibe 10 mg 06/14/25 08:00 06/16/25 09:14
Ezetimibe (Zetia) 10 Mg Tablet PO 07/12/25 07:59 10 mg
DAILY TRAN Administration
Enoxaparin Sodium 40 mg 06/13/25 21:36 06/15/25 16:59
Enoxaparin Sodium 40 Mg/0.4 Ml Syringe SC 07/11/25 21:35 Not Given
QPM TRAN
Finasteride 5 mg 06/14/25 08:00 06/16/25 09:14
Finasteride 5 Mg Tablet PO 07/12/25 07:59 5 mg
DAILY TRAN Administration
Glucagon 1 mg 06/14/25 13:00
Glucagon 1 Mg Vial IM 07/12/25 12:59
PRN PRN
hypoglycemia
Protocol
Insulin Human Regular 100 units in 100 mls @ 0 mls/hr 06/16/25 06:45 06/16/25 08:36
Novolin R Insulin Infusion IV 100 mls
PER PROTOCOL TRAN Administration
Protocol
Per Protocol
Sodium Chloride 1,000 mls @ 250 mls/hr 06/16/25 08:45 06/16/25 10:16
Nss IV 1,000 mls
.Q4H TRAN Administration
Lorazepam 1 mg 06/15/25 01:00
Lorazepam 1 Mg Tablet PO 07/13/25 00:59
Q2HPRN PRN
MSAS 5-7
Ondansetron HCl 4 mg 06/15/25 23:26 06/15/25 23:52
Ondansetron 4 Mg/2 Ml Vial IV 07/13/25 23:25 4 mg
Q6HPRN PRN Administration
nausea/vomiting
Pantoprazole Sodium 40 mg 06/15/25 20:00 06/16/25 09:14
Pantoprazole Sodium 40 Mg/10 Ml Vial IV 07/13/25 19:59 40 mg
BID TRAN Administration
Polyethylene Glycol 17 grams 06/16/25 11:00
Polyethylene Glycol Powder 17 Grams Packet PO 07/14/25 10:59
DAILY TRAN
Prochlorperazine Edisylate 5 mg 06/16/25 01:11 06/16/25 01:48
Prochlorperazine 10 Mg/2 Ml Vial IV 07/14/25 01:10 5 mg
Q6HPRN PRN Administration
nausea/vomiting
Sennosides 8.6 mg 06/16/25 11:00
Sennosides (Senokot) 8.6 Mg Tablet PO 07/14/25 10:59
BID TRAN
Sodium Chloride 0 flush 06/13/25 22:00
Sodium Chloride 0.9% (Flush) Syringe IV 07/11/25 21:59
PER PROTOCOL TRAN
Sodium Chloride 10 ml 06/15/25 20:00 06/16/25 09:15
Sodium Chloride 0.9% (Preservative Free) 10 Ml Vial IV 07/13/25 19:59 10 ml
BID TRAN Administration
Sucralfate 1 gm 06/15/25 16:30 06/16/25 09:14
Sucralfate (Carafate) 1 Gm/10 Ml Cup PO 07/13/25 16:29 1 gm
ACHS TRAN Administration
Tamsulosin HCl 0.4 mg 06/14/25 08:00 06/16/25 09:14
Tamsulosin 0.4 Mg Capsule PO 07/12/25 07:59 0.4 mg
DAILY TRAN Administration
Home Medications
�Medication �Instructions �Recorded
clopidogrel 75 mg tablet 75 mg PO DAILY Blood Clot 05/26/23
Prevention/Tx
atorvastatin 80 mg tablet 80 mg PO QPM High Cholesterol 08/19/23
ezetimibe 10 mg tablet 10 mg PO DAILY High Cholesterol 01/21/24
acetaminophen 500 mg tablet 1,000 mg DAILYPRN PRN mild pain 07/06/24
tamsulosin 0.4 mg capsule 0.4 mg PO DAILY Urinary Issue 11/16/24
dapagliflozin propanediol 10 mg 10 mg PO DAILY 03/02/25
tablet (Farxiga)
enalapril maleate 5 mg tablet 5 mg PO BID Blood Pressure 03/02/25
finasteride 5 mg tablet 5 mg PO DAILY BPH 03/02/25
insulin NPH isoph U-100 human 100 16 unit SC QHS Diabetes 03/02/25
unit/mL subcutaneous suspension
(Humulin N NPH U-100 Insulin
(isophane susp))
insulin NPH isoph U-100 human 100 26 unit SC DAILY Diabetes 03/02/25
unit/mL subcutaneous suspension
(Humulin N NPH U-100 Insulin
(isophane susp))
pantoprazole 40 mg tablet,delayed 40 mg PO DAILY Gastrointestinal 03/02/25
release (Protonix) Issue
amoxicillin 875 mg-potassium 1 tab PO Q12H 5 days #10 tabs 03/06/25
clavulanate 125 mg tablet
NIH Stroke Score
Subsequent NIH Scale
Date of Subsequent NIH Scale: 06/16/25
Time of Subsequent NIH Scale: 08:30
NIH Stroke Score
Level of Consciousness: 1 - Arousable
LOC Questions: 1-Answers one correctly
LOC Commands: 0-Performs both correctly
Best Horizontal Gaze: 0-Normal
Visual Jang: 0=Normal, no visual loss
Facial Palsy: 0=Normal, symmetrical
Motor - Right Arm: 0=No drift 10 seconds
Motor - Left Arm: 0=No drift 10 seconds
Motor - Right Le-No drift 5 seconds
Motor - Left Le-No drift 5 seconds
Limb Ataxia: 0-Absent
Sensation: 0-Normal
Best Language: 0-No aphasia
Dysarthria: 1-Mild slurring
Extinction and Inattention: 0-No abnormality
NIH Total Score:: 3
Modified Gerson (mRS) Score
Modified Gerson Scale (mRS): Moderate disability. Requires some help, able to walk unassisted.
Score: 3
Alteplase Contraindication
Inclusion and Exclusion criteria reviewed: Yes

Documented by User: Bobby Ramon MD 06/16/25 11:43
NIH Stroke Score
NIH Stroke Score
NIH Total Score:: 3
Modified Flushing (mRS) Score
Score: 3
[2025-06-16 08:28] LABS: AST (SGOT) 32 U/L (17-59); Albumin 4.5 g/dl (3.5-5.0); Alkaline Phosphatase 60 U/L (38-126); Blood Urea Nitrogen 43 mg/dl (9-20); Calcium 9.3 mg/dl (8.4-10.2); Carbon Dioxide 6 mmol/L (22-30); Chloride 97 mmol/L (98-107); Estimated Creatinine Clearance 31 ml/min; Glucose 609 mg/dl (70-99); Potassium 6.4 mmol/L (3.5-5.1); Sodium 133 mmol/L (135-145); Total Protein 6.9 g/dl (6.3-8.2); eGFR 38.77
[2025-06-16] MEDS: NOVOLIN R INSULIN INFUSION 100 IV (08:36)
[2025-06-16] MEDS: NOVOLOG FLEXPEN-LOW RESISTANCE SC (08:59)
[2025-06-16 09:00] LABS: ALT (SGPT) 35 U/L (0-50)
[2025-06-16] MEDS: VASOTEC 5 MG PO (09:14)
[2025-06-16] MEDS: CARAFATE SUSPENSION 1 GM PO ×3 (09:14→20:45)
[2025-06-16] MEDS: FARXIGA 10 MG PO (09:14)
[2025-06-16] MEDS: FLOMAX 0.4 MG PO (09:14)
[2025-06-16] MEDS: ZETIA 10 MG PO (09:14)
[2025-06-16] MEDS: LOW STRENGTH ASPIRIN 81 MG PO (09:14)
[2025-06-16] MEDS: PROSCAR 5 MG PO (09:14)
[2025-06-16] MEDS: PROTONIX IV 40 MG IV ×2 (09:14→19:41)
[2025-06-16] MEDS: NSS (PRESERVATIVE FREE) 10 ML IV ×2 (09:15→19:42)
[2025-06-16 09:59] LABS: Glucose - Point of Care 505 mg/dl (70-99)
[2025-06-16] MEDS: NOVOLIN R 5 UNITS IV (10:01)
[2025-06-16 10:13] LABS: Venous Blood Gas B.E. -22.0 mmol/L (-4 to +4); Venous Blood Gas O2 Sat % 100.0 %
[2025-06-16 10:34] LABS: Glucose 528 mg/dl (70-99)
--- NOTE | 2025-06-16 10:52 | PTCARENOTE ---
pt wakes to name. nihss done with manufacturing supervisor 2nd shift nurse. oriented to self and states he is in a hospital. shortly after receiving pt he starting having expressive aphasia stroke alert called. dr Ramon at bedside. ct head done. labs sent as ordered
and insulin gtt started and ivf bolus. bladder scan done per dr pastor request. 450 in bladder -order to place hua. scd's placed on pt. bicarb gtt started as ordered. insulin iv given for elevated potassium.
[2025-06-16] MEDS: SODIUM BICARBONATE 1150 MEQ IV (10:59)
[2025-06-16] MEDS: MIRALAX PO (10:59)
[2025-06-16] MEDS: SENOKOT PO (10:59)
[2025-06-16] MEDS: CARAFATE SUSPENSION PO (11:42)
[2025-06-16 11:52] LABS: Glucose 434 mg/dl (70-99)
[2025-06-16] MEDS: REGLAN 10 MG IV (12:07)
[2025-06-16 12:27] LABS: Venous Blood Gas B.E. -12.5 mmol/L (-4 to +4); Venous Blood Gas O2 Sat % 100.0 %
[2025-06-16 12:37] LABS: Blood Urea Nitrogen 43 mg/dl (9-20); Calcium 8.4 mg/dl (8.4-10.2); Carbon Dioxide 13 mmol/L (22-30); Chloride 104 mmol/L (98-107); Estimated Creatinine Clearance 32 ml/min; Glucose 373 mg/dl (70-99); Potassium 4.1 mmol/L (3.5-5.1); Sodium 137 mmol/L (135-145); eGFR 41.52
[2025-06-16 13:13] LABS: Glucose - Point of Care 358 mg/dl (70-99)
--- NOTE | 2025-06-16 13:53 | CM ---
DKA and transferred to ICU in AM. Transitioned to inpatient status. Discharge POC: Therapy initial recommendation for outpatient PT. Needs script. Requested attending to place on chart. Therapy attempted to eval again today but was unable due to
medical instability. Will need to watch for change in therapy recommendation.
[2025-06-16 14:04] LABS: Glucose - Point of Care 311 mg/dl (70-99)
[2025-06-16] MEDS: NSS with KCL 40 MEQ 1000 IV (14:10)
[2025-06-16 15:14] LABS: Glucose - Point of Care 236 mg/dl (70-99)
[2025-06-16 16:15] LABS: Glucose - Point of Care 217 mg/dl (70-99)
[2025-06-16 16:17] LABS: Venous Blood Gas B.E. -2.2 mmol/L (-4 to +4); Venous Blood Gas O2 Sat % 100.0 %
[2025-06-16 16:39] LABS: Blood Urea Nitrogen 42 mg/dl (9-20); Calcium 8.4 mg/dl (8.4-10.2); Carbon Dioxide 23 mmol/L (22-30); Chloride 109 mmol/L (98-107); Estimated Creatinine Clearance 34 ml/min; Glucose 208 mg/dl (70-99); Potassium 4.5 mmol/L (3.5-5.1); Sodium 138 mmol/L (135-145); eGFR 44.65
[2025-06-16] MEDS: D5/0.45%NSS with KCL 20 MEQ 1000 IV (17:11)
[2025-06-16 17:19] LABS: Glucose - Point of Care 176 mg/dl (70-99)
[2025-06-16] MEDS: LIPITOR PO (18:11)
[2025-06-16] MEDS: LOVENOX 40 MG SC (18:19)
[2025-06-16 18:33] LABS: Glucose - Point of Care 199 mg/dl (70-99)
--- NOTE | 2025-06-16 19:20 | PTCARENOTE ---
Pt received lying in bed, rouses easily from sleep. Speech is mildly slurred with some mild receptive and expressive aphasia. However he scores 3 on NIHSS. MSAS 2. Oriented. Conversational. MARTÍNEZ with equal strength. See pipe washer charted on
worklist flowsheet. BBS clear upper lobes, bases diminished. Sats 100% on 6L/nc, oxygen decreased to 2L/nc. S1S2 regular with positive murmur. SR on CM. Guzman catheter in place draining cloudy yellow urine with purulent sediment. No edema. SCDs in
place. IVF and insulin gtt per order/protocol. Bed in low and locked position, bed alarm on, call soto within reach.
[2025-06-16 19:46] LABS: Glucose - Point of Care 151 mg/dl (70-99)
[2025-06-16 20:24] LABS: Blood Urea Nitrogen 38 mg/dl (9-20); Calcium 7.8 mg/dl (8.4-10.2); Carbon Dioxide 22 mmol/L (22-30); Chloride 109 mmol/L (98-107); Estimated Creatinine Clearance 39 ml/min; Glucose 405 mg/dl (70-99); Potassium 5.7 mmol/L (3.5-5.1); Sodium 134 mmol/L (135-145); eGFR 52.41
--- NOTE | 2025-06-16 20:32 | PTCARENOTE ---
Patient noted with 8 beat run of AIVR vs wide complex tachycardia. Strip in chart. Asymptomatic. Aspiration precautions with HOB up 90 degrees. Patient drinks water and takes po meds without difficulty. Sats 100% on 2L/nc, placed on RA.
[2025-06-16] MEDS: SENOKOT 8.6 MG PO (20:45)
[2025-06-16 20:46] LABS: Glucose - Point of Care 152 mg/dl (70-99)
[2025-06-16] MEDS: HUMULIN N KWIKPEN 8 UNITS SC (21:01)
[2025-06-16 21:21] LABS: Blood Urea Nitrogen 41 mg/dl (9-20); Calcium 8.4 mg/dl (8.4-10.2); Carbon Dioxide 24 mmol/L (22-30); Chloride 110 mmol/L (98-107); Estimated Creatinine Clearance 36 ml/min; Glucose 162 mg/dl (70-99); Potassium 4.5 mmol/L (3.5-5.1); Sodium 137 mmol/L (135-145); eGFR 48.25
[2025-06-16 21:48] LABS: Glucose - Point of Care 127 mg/dl (70-99)
--- NOTE | 2025-06-16 22:03 | PTCARENOTE ---
IVF and insulin gtt off now one hour after NPH insulin per order. UA with reflex to culture sent per order. Patient noted to have dry heaves, although he denies nausea. Prn Zofran given for nausea.
[2025-06-16 22:22] LABS: Urine Character Cloudy (Clear)
[2025-06-16] MEDS: ZOFRAN 4 MG IV (22:22)
[2025-06-16 22:34] LABS: Urine Squamous Cell 0-2 /LPF (Few)
[2025-06-16 22:36] LABS: Urine Red Blood Cell 0-2 /HPF (0-2); Urine White Cell 80-90 /HPF (0-5)
[2025-06-17] VITALS (24 sets, daily range): BP systolic 108–183; BP diastolic 61–95; BMI 20.2
--- NOTE | 2025-06-17 00:05 | PTCARENOTE ---
Patient's BP noted to be elevated 171/81-91. Patient did not receive his Norvasc today. MSAS is a 6 with restlessness, mild tremor. Stepan LAGUNA notified. Attempted to give 1mg Ativan prn MSAS 5-7. However, patient refused. Norvasc given per order.
Repositioned for comfort. Patient denies pain. No further nausea or dry heaves noted. No other change in patient physical assessment noted. UO fair 40-50cc/hr.
[2025-06-17 00:11] LABS: Glucose - Point of Care 147 mg/dl (70-99)
[2025-06-17] MEDS: VASOTEC 5 MG PO (00:38)
--- NOTE | 2025-06-17 04:30 | PTCARENOTE ---
Patient appears to be sleeping comfortably when undisturbed with eyes closed, lying still, resps. non labored. Rouses easily. Neurologically stable. Am labs drawn. Denies pain. Physical assessment unchanged.
[2025-06-17 04:54] LABS: Hematocrit 35.8 % (39.0-52.0); Hemoglobin 12.7 g/dL (13.0-18.0); Mean Corp Hgb Conc. 35.5 g/dL (33.0-37.0); Mean Corpuscular Volume 92.0 fL (80.0-94.0); Platelet Count 197 10^3/uL (130-400); Red Cell Dist. Width 12.8 % (11.5-14.5); Venous Blood Gas B.E. -1.8 mmol/L (-4 to +4); Venous Blood Gas O2 Sat % 99.2 %
[2025-06-17 04:56] LABS: Venous Blood Gas O2 Therapy 6L/min
--- NOTE | 2025-06-17 05:03 | PTCARENOTE ---
Addendum entered by Mily Rosenthal RN 06/17/25 05:45:
Hydralazine IV given per order
Original Note:
BP again noted elevated, 183/95. Stepan LAGUNA notified, awaiting new orders.
[2025-06-17 05:14] LABS: Blood Urea Nitrogen 38 mg/dl (9-20); Calcium 8.7 mg/dl (8.4-10.2); Carbon Dioxide 24 mmol/L (22-30); Chloride 110 mmol/L (98-107); Estimated Creatinine Clearance 46 ml/min; Glucose 139 mg/dl (70-99); Potassium 4.6 mmol/L (3.5-5.1); Sodium 140 mmol/L (135-145); eGFR > 60.00
[2025-06-17] MEDS: AMOXIL 500 MG PO ×3 (05:18→21:08)
[2025-06-17] MEDS: APRESOLINE 10 MG IV (05:18)
--- NOTE | 2025-06-17 05:45 | PTCARENOTE ---
Complete cares given, CHG cloth bath. Guzman care. Complete linen change.
--- NOTE | 2025-06-17 06:33 | PTCARENOTE ---
Addendum entered by Mily Rosenthal RN 06/17/25 06:44:
slotter operator helper Sho and Nathaniel were notified. New orders received
Original Note:
Despite Hydralazine, BP continues to be elevated, 180/89. Night Critical Care RN INTERN no longer available. Messaged Dr. Lynch and Dr. Majano.
[2025-06-17] MEDS: TRANDATE 5 MG IV (06:59)
--- NOTE | 2025-06-17 07:05 | PTCARENOTE ---
Labetolol given per order. Report given verbally to RN assuming careJuany. Bedside rounds complete. Questions answered.
[2025-06-17] MEDS: NSS (PRESERVATIVE FREE) 10 ML IV ×2 (07:08→21:08)
[2025-06-17] MEDS: CARAFATE SUSPENSION 1 GM PO ×4 (07:09→21:08)
[2025-06-17] MEDS: ZETIA 10 MG PO (07:09)
[2025-06-17] MEDS: PROTONIX IV 40 MG IV ×2 (07:09→21:08)
[2025-06-17] MEDS: PROSCAR 5 MG PO (07:09)
[2025-06-17] MEDS: MIRALAX 17 GRAMS PO (07:09)
[2025-06-17] MEDS: FLOMAX 0.4 MG PO (07:09)
[2025-06-17] MEDS: SENOKOT 8.6 MG PO ×2 (07:24→21:08)
[2025-06-17] MEDS: LOW STRENGTH ASPIRIN 81 MG PO (07:39)
[2025-06-17] MEDS: HUMULIN N KWIKPEN 26 UNITS SC (07:44)
[2025-06-17 07:50] LABS: Glucose - Point of Care 170 mg/dl (70-99)
--- NOTE | 2025-06-17 08:27 | W.PN.INTV ---
Today's Communication / Plan
Recommendations
DKA resolved � continue basal�bolus SQ insulin
Control BP with goal <140/90
Start Procardia and once ROSSY continues to improve and is stable, resume home BP med (enalapril)
DuoNebs prn
If maintenance inhaler is needed, would avoid muscarinic antagonists given his urinary retention he has been experiencing over the last month (has been straight catheterizing himself)
Guzman can be removed today
Up OOB as tolerated
PT/OT
Maintain SpO2 88-95%
Stool regimen given fecal burden seen on AXR from yesterday
If BP remains stable today then will downgrade to telemetry. Pulmonary service will continue to briefly follow along and outpatient office follow-up will be arranged
Assessment
-
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 His blood sugar was in the 30s at home prior to EMS arriving. He
was Dx with a TIA. Initial blood glucose was 150, and later on admission, his POCT glucose was 74. Initial CT head was negative for acute CVA. CTA head/neck showed old lacunar infarcts, and 50-69% proximal right ICA stenosis. Initial CXR negative
for acute cardiopulmonary process. Neuro consulted and had concern for right lacunar stroke. Given ASA 325mg in the ER and NS 0.9% x 1 L, and admitted to telemetry. Brain MRI on 06/15/2025 was negative for an acute CVA. Patient's blood sugar began
to rise on the morning of 06/15, and it severely increased this morning (06/16) with glucose on his chemistry lab of 528, with significant metabolic acidosis with serum bicarbonate level of 7, ROSSY with creatinine 1.7, and hyperkalemia with potassium
initially 5.9 and worsened to 6.4. Patient diagnosed with DKA, started on insulin drip and transferred to the ICU for further care. Production Trainer services consulted for additional management/recommendations.
Chronic conditions ROLL RECLAIMER: Diabetes mellitus type 1.5, hyperlipidemia, alcohol use disorder, fatty liver, tobacco use disorder, GERD, right pontine CVA, COPD, Hx of COVID-19 (05/2023), chronic HFpEF, history of CAP (January 2024), history of right-sided
traumatic PTX (11/15), colonic polyps, erectile dysfunction, gastric ulcers, right heel fracture (2009)
Impression:
#DM type II (uncontrolled: A1c 8.7 on 06/14/2025) complicated by DKA -- DKA now resolved
#Metabolic acidosis with increased anion gap due to DKA + ROSSY - acidosis resolved
#ROSSY - improved
#Coffee-ground emesis (prior to arriving to ICU - now resolved)
#Expressive aphasia/AMS due to TME (CT head negative for acute CVA on 06/16/2025) - aphasia now resolved
#HTN
#TIA
#Carotid artery stenosis with proximal R-ICA stenosis (50-69% stenosis via CTA head/neck � 06/13/2025)
#UTI due to E. faecalis
#Hyperbilirubinemia
#GERD
Plan:
- Given patient's lab findings with hyperglycemia, acidosis and nausea/vomiting, he was Dx with DKA andn required insulin gtt
- DKA now resolved
- COntinue basal-bolus SQ insulin
- Of note, patient's BG are usually in the 300s (per - prior to arrival)
- Diabetic BUSINESS BANKING REPRESENTATIVE consulted - recs appreciated
- Renally dose all meds
- Avoid nephrotoxic agents
- Trend UOP and daily sCr
- Currently holding his home BP med, enalapril; can resume this assuming his ROSSY continues to improve; for now, I will start Procardia and we can give prn medications (i.e. hydralazine +/- labetalol)
- Continue with amoxicillin
- Follow up blood Cx (drawn 06/16 � shows NGTD)
- May need to broaden Abx if he deteriorates - since he is improving there is no need to broaden antibiotics at this time
- Trend WBC and monitor temperature curve
- Would treat for total of 7 days assuming he continues to clinically improve and remains afebrile for 48 hours prior to stopping antibiotic
- Maintain SpO2 88-95%; currently on room air and breathing comfortable
- Aspiration precautions
- Elevate HOB >30-45�
- Give DuoNeb treatment this AM as he has occasional chest tightness/SOB - of note, given his urinary retention, would avoid LAMA; if maintenance inhaler is to be used, would use a LABA/ICS which she would likely benefit from anyway given that his
absolute eosinophil count from 06/13/2025 was 400, and recently in November 2024 it was 600
- prn nebulized bronchodilators - not currently bronchospastic
- Encourage incentive spirometer use 10x per hour for at least 4 hrs a day
- Maintain MAP>65
- Replete electrolytes with K>4, Mg>2
- Trend H/H and transfuse if needed to keep Hb>7-8g/dL; keep plt>20k, unless there is concern for bleeding then keep plt>50k
- Continue PPI given recent coffee ground emesis, especially with a history of gastric ulcers, although no stomach ulcers seen on recent EGD on 03/03/2025, as there was a 4 cm hiatal hernia with erythematous mucosa in the stomach antrum with grade a
esophagitis at the GEJ and a questionable polyp in the stomach cardia
- PT/OT
- DVT ppx: LMWH
Code status: Full code
If BP remains stable today, then will transfer out of ICU to telemetry. Given his history of COPD, Pulmonary service will continue to briefly follow along. Outpatient pulmonary office follow-up will be arranged with me (Dr. Lynch)
Data:
Brain MRI 06/15/2025:
No acute intracranial abnormality noted. Advanced chronic senescent changes redemonstrated.
CTA head/neck with/without IV contrast 06/13/2025:
No acute intracranial pathology.
Moderate atrophy. Stable.
Moderate periventricular small vessel ischemic disease. Stable.
Old lacunar infarcts. Stable.
No acute vascular pathology. No M1 and M2 occlusion.
Less than 50% distal right common carotid artery stenosis
50-69% proximal right internal carotid stenosis
50-69% stenosis of the origin of the right vertebral artery
Less than 50% stenosis of the distal left common carotid artery. 50-69% stenosis of the proximal left internal carotid artery.
Multilevel degenerative disc disease of the cervical spine.
Less than grade 1 anterolisthesis of C2 on C3
CXR 06/13/2025:
No acute disease of the chest.
Findings suggesting mild COPD. Progressed.
AXR (portable) 06/16/2025:
Limited by single portable supine technique.
No grossly dilated bowel loops.
Mild to moderate colonic fecal burden.
Total time spent today was 58 minutes for this encounter. Time includes reviewing laboratory test/imaging results, reviewing pertinent medical records, obtaining and reviewing medical history, performing an appropriate exam, ordering medications,
tests and procedures. Time also includes documentation of this encounter, coordinating patient care and communicating with other healthcare professionals. Total time does not include separately billed tests performed on this date of service.
Subjective Dataa
Subjective Data
Date of Service:
Date of Service: June 17, 2025
Chief Complaint: Production Trainer Follow Up
Subjective:
Patient was seen and evaluated today bedside. DKA resolved and has been transitioned off insulin drip. BG this morning is 139. Mentation now fully normalized, as he is now awake and alert. Vitals this morning showed heart rate 77, BP 174/92 and
he is breathing comfortably on room air, saturating 95%. Still having some dry heaving this morning but no nausea when I was evaluating him. Required labetalol this morning due to hypertension.
Review of Systems
General: Other (Negative unless mentioned above)
Objective Data
Data Reviewed
Vital Signs / I&O / Oxygen:
Vital Signs
Temp Pulse Resp BP Pulse Ox
99.0 F 82 14 180/89 97
06/17/25 08:42 06/17/25 06:59 06/17/25 06:32 06/17/25 06:59 06/17/25 04:20
Intake and Output
06/16/25 06/17/25 06/18/25
06:59 06:59 06:59
Intake Total 1140 / 1140 4445 / 4445 480 / 480
Output Total 1800 / 1800 2024
Balance -660 / -660 2420 / 2420 480 / 480
SaO2 97
Nasal Cannula flow liters per 2
minute
Physical Exam
General: Respiratory Distress (negative), Comfortable, Chills (negative) and Sweats (negative)
HEENT: Normocephalic and Anicteric
Cardiovascular: S1-S2, Murmur (JOLIE, heard best at RUSB) and Peripheral Edema (negative)
Respiratory: Wheeze (negative), Crackles (negative), Rhonchi (negative), Non-Labored Respirations, Stridor (negative) and Other (Diminished breath sounds bilaterally)
GI: Soft, Non Distended, Non Tender and Normal Bowel Sounds
Neurology: AO x 3 and Tremors (negative)
Skin: Warm, Dry, Cyanosis (negative) and Jaundice (negative)
Labs/Micro/Reports
Lab Data
06/17/25 04:40
06/17/25 04:40
Microbiology
06/13/25 16:50 Urine Urine Culture - Final
Enterococcus faecalis
[2025-06-17] MEDS: NOVOLOG FLEXPEN-MODERATE RESISTANCE 1 UNITS SC (08:36)
--- NOTE | 2025-06-17 09:19 | PTCARENOTE ---
0700 assumed care; in bed. off insulin drip.
AAO x 3 Denies chest pain. RASS 0; NIH 0; denies
SBP 180;s Labetolol given per order. denies chest discomfort
denies nausea, dry heaves noted. 1800 diet tolerated with no nausea.
NIH 26 units and Novolog 1 unit per moderate sliding scale adm
[2025-06-17] MEDS: DUONEB 3 ML INH (12:10)
[2025-06-17 12:11] LABS: Glucose - Point of Care 207 mg/dl (70-99)
[2025-06-17] MEDS: NOVOLOG FLEXPEN-MODERATE RESISTANCE 3 UNITS SC (12:22)
[2025-06-17] MEDS: PROCARDIA XL (EXTENDED RELEASE) 30 MG PO (12:27)
--- NOTE | 2025-06-17 14:13 | PTOTSP ---
ST Follow-Up
Pt currently presents with clinical signs of mild oral dysphagia characterized by prolonged mastication and bolus formation with inconsistent oral awareness and need for strategies for clearance as well as suspected esophageal dysfunction
characterized by delayed onset of very wet coughing after ingestion, reported occasional sternal discomfort after PO intake of solids, frequent aerophagia/eructation s/p ingestion, and abrupt onset of hiccupping during ingestion that is placing the
pt at risk for aspiration of retrograde flow/content from esophagus.
Recommendations:
- Soft bite sized solids, thin liquids, meds as tolerated.
- Aspiration and reflux precautions: HOB upright for all PO intake and for 60 minutes after intake; HOB upright at least 30 minutes at night; small bites/sips, slow intake rate, small frequent meals, try not to over-eat, avoid reflux-triggering
foods/drinks.
- GI to consider barium swallow study or EGD for direction visualization to rule out causes for inferior flow obstruction.
- CHILD CARE WORKER to f/u re: diet tolerance, use of compensatory strategies, and to re-assess pt's candidacy for further diet consistency upgrades.
--- NOTE | 2025-06-17 15:20 | W.PN.HOSP.TC ---
Today's Communication/Plan
-
See plan
Assessment / Plan
Assessment / Plan
Physical Exam
General: No Apparent Distress and Comfortable
HEENT: Normocephalic and Moist mucous membranes
Respiratory: Clear to Auscultation Bilaterally
Cardiac: S1/S2 and Regular Rhythm
GI: Soft, Non Tender and Normal Bowel Sounds
Musculoskeletal: No Cyanosis and No Edema
Skin: Warm and Dry
Neuro: Confused
Psych: Calm
Assessment/Plan
Diabetic Ketoacidosis overnight 06/15/25 to 06/16/25
Type 2 Diabetes Mellitus
Chronic Hyperglycemia -- chronically in the 300s -- with episodes of hypoglycemia
History of Significant Hypoglycemia
-DKA has resolved
-Subq Insulin started; continue
Leukocytosis
Urine culture with enterococcus
-Continue Amoxicillin -- no need to broaden antibiotics at this time, since he continues to improve
-Treat with Amoxicillin for a total of 7 days assuming he continues to clinically improve and remains afebrile for 48 hours prior to stopping antibiotic
-May need to broaden antibiotics if patient decompensates
-Blood culture ordered on 06/16/25 with no growth to date
Presentation with Left-Sided Weakness/Slumped on the side of the Commode (with preserved consciousness)
History of Asymptomatic Left Carotid Artery Stenosis
Acute right pure motor lacunar syndrome
-Neurology consultation appreciated
-Discussed with Dr. Dotson, start Plavix 75 mg today, check CTA Head and Neck, MRI Brain without contrast
-In the past, CTA head/neck showed Left Carotid Bulb 80% stenosis, right carotid bulb 50% stenosis -- will consider vascular evaluation in hospital - previously it was noted that patient could benefit from outpatient carotid interventions
bilaterally to lower patient's stroke risk
-CT Head without acute stroke
-Checked CTA Head and Neck -- with significant carotid stenosis bilaterally
-Patient should stay on Plavix 75 and Lipitor 80 mg daily
-Added Aspirin 81 mg daily (received 325 mg Aspirin in the ER)
-Per neurology, continue ASA and Plavix for 21 days (Day 1 of Aspirin 81 mg was 06/14/25) -- but now Plavix is on hold as per GI in preparation for upper endoscopy
-Monitor for GI bleeding
-Brain MRI with no strokes
-Monitor on telemetry
Carotid Artery Stenosis
-Patient has an appointment with Dr. Guzman vascular surgeon on 06/22/25
-Notified Dr. Guzman who will see patient outpatient, no need for vascular intervention inpatient
History of Hyperkalemia in Setting of Enalapril
-Monitor potassium
Re-occurrence of hematemesis on 06/15/25
Upper GI Bleed/Copious Coffee Ground Emesis on 11/17/24
Gastrointestinal Bleeding/coffee-ground emesis
History of PUD and esophagitis
-EGD on 03/03/25 was unrevealing, but did show erythematous mucosa
-Colonoscopy on 03/06/25 was also unrevealing for bleed
-Per GI, patient was told he could follow-up outpatient for capsule endoscopy, and he would need repeat colonoscopy in 5 years for surveillance.
-Was supposed to get capsule endoscopy outpatient, but did not since capsule was flushed in the toilet by mistake, as per patient and his
-Monitor CBC
-Vomited up concern for bloody vomit on 06/15/25: PPI IV BID and also Carafate
-GI consult placed given patient needs to be on DAPT for suspected TIA -- Plavix held for now given possible need for upper endoscopy
Mild Hyponatremia
-Sodium is currently normal
History of Minimally displaced 10th rib fracture
-From prior chest x-ray on 10/31
COPD
-Given patient's urinary retention, avoid LAMA; if maintenance inhaler is to be used, use a LABA/ICS
-prn nebulized bronchodilators - if patient becomes bronchospastic
-Incentive spirometer use 10x per hour for at least 4 hrs a day
Active smoker
-Encourage smoking cessation
Cardiomyopathy
-Continue dapagliflozin
History of Right pontine CVA
-Statin
-Hold home Plavix as above
-Continue newly started Aspirin
Alcohol use disorder
-Thiamine and folate
-Alcohol withdrawal protocol -- received Ativan overnight 06/14/25 to 06/15/25 for elevated MSAS
Essential hypertension
-Currently holding his home BP medication Enalapril given ROSSY and hyperkalemia
-Can resume Enalapril assuming patient's ROSSY continues to improve
-Start Procardia and we provide if needed PRN medications (i.e. hydralazine +/- labetalol)
GERD
-Continue PPI
Peptic Ulcer Disease
History of Urinary retention secondary to BPH
-Continue tamsulosin
-Bladder scans protocol/monitor for urinary retention
Hypercholesterolemia
-Continue statin, Zetia
Previous Weight Loss
-CT AP was checked earlier in 2024 for weight loss, the study was limited but overall unrevealing.
Code Status: Full code
DVT Prophylaxis: SCDs. Lovenox
Speech Evaluation: As of 06/17/25: soft bite sized solids with thin liquids -- as of 06/17/25, patient has some occasional wet coughing with intake but it�s super delayed and speech think it�s esophageal related.
On 06/16/25, I updated patient's about patient's Diabetic Ketoacidosis and transfer to ICU. I answered all of her questions and concerns to satisfaction.
Anticipated Discharge: > 48 hours
Subjective/Interval History
-
Date of Service: June 17, 2025
Patient was seen and examined. His mental status was much better today, denied any new symptoms or complaints.
Objective Data
-
Labs:
Laboratory Results
06/17/25
04:40
WBC 23.0 H
Hgb 12.7 L
Hct 35.8 L
Plt Count 197
Sodium 140
Potassium 4.6
Chloride 110 H
Carbon Dioxide 24
BUN 38 H
Creatinine 1.2
Glucose 139 H
Calcium 8.7
Vital Signs:
Vital Signs
Temp Pulse Resp BP Pulse Ox
99.7 F 72 19 157/83 95
06/17/25 12:30 06/17/25 15:00 06/17/25 15:00 06/17/25 15:00 06/17/25 12:15
I&O
06/16/25 06/17/25 06/18/25
06:59 06:59 06:59
Intake Total 1140 / 1140 4445 / 4445 960 / 960
Output Total 1800 / 1800 2024 / 2024 800 / 800
Balance -660 / -660 2420 / 2420 160 / 160
[2025-06-17] MEDS: NOVOLOG FLEXPEN-MODERATE RESISTANCE SC (18:35)
[2025-06-17] MEDS: LIPITOR 80 MG PO (18:39)
[2025-06-17] MEDS: LOVENOX SC (18:41)
[2025-06-17 18:44] LABS: Glucose - Point of Care 120 mg/dl (70-99)
--- NOTE | 2025-06-17 19:07 | PTCARENOTE ---
patient OOB chair x 4 hours Blood sugar stable, covered per order. Tolerating food and fluids with no nausea or vomiting.
--- NOTE | 2025-06-17 19:30 | PTCARENOTE ---
risk mgr, pt aaox3, SR HR 70s. RA Sat 97%. LA IV x 2 WNL- no gtt infusing. Guzman draining adequate amt urine. POC discussed w/pt, call soto in reach, bed alarm on.
[2025-06-17] MEDS: HUMULIN N KWIKPEN 16 UNITS SC (21:10)
[2025-06-17 21:22] LABS: Glucose - Point of Care 201 mg/dl (70-99)
[2025-06-18] VITALS (7 sets, daily range): BP systolic 94–169; BP diastolic 51–92; PULSE 77; BMI 20.1
--- NOTE | 2025-06-18 02:17 | PTCARENOTE ---
vss, report called to [facility], pt for transfer.
[2025-06-18 02:48] LABS: Glucose - Point of Care 200 mg/dl (70-99)
--- NOTE | 2025-06-18 03:43 | TRANSFER ---
Patient transferred from ICU via wheelchair. Neuro check completed. NIH 1 due to mild aphasia. No left sided weakness or dysarthria noted upon assessment. VSS. Patient denies pain. BG 200. x 1 assist from wheelchair to bed. Guzman catheter draining
clear, yellow urine. Patient oriented to room. Bed in lowest position. Bed alarm on. All patient needs met. Call soto and personal belongings within reach.
[2025-06-18] MEDS: AMOXIL 500 MG PO ×2 (05:59→14:21)
[2025-06-18 08:00] LABS: Glucose - Point of Care 248 mg/dl (70-99)
[2025-06-18] MEDS: NOVOLOG FLEXPEN-MODERATE RESISTANCE 3 UNITS SC (08:14)
[2025-06-18] MEDS: PROTONIX IV 40 MG IV (08:15)
[2025-06-18] MEDS: NSS (PRESERVATIVE FREE) 10 ML IV (08:15)
[2025-06-18] MEDS: ZETIA 10 MG PO (08:15)
[2025-06-18] MEDS: PROSCAR 5 MG PO (08:16)
[2025-06-18] MEDS: FLOMAX 0.4 MG PO (08:16)
[2025-06-18] MEDS: HUMULIN N KWIKPEN 26 UNITS SC (08:16)
[2025-06-18] MEDS: SENOKOT 8.6 MG PO (08:16)
[2025-06-18] MEDS: LOW STRENGTH ASPIRIN 81 MG PO (08:16)
[2025-06-18] MEDS: PROCARDIA XL (EXTENDED RELEASE) 30 MG PO (08:16)
[2025-06-18] MEDS: PLAVIX 75 MG PO (08:16)
[2025-06-18] MEDS: CARAFATE SUSPENSION 1 GM PO ×3 (08:17→16:46)
[2025-06-18] MEDS: MIRALAX PO (08:18)
[2025-06-18 08:36] LABS: Hematocrit 36.2 % (39.0-52.0); Hemoglobin 12.7 g/dL (13.0-18.0); Mean Corp Hgb Conc. 35.1 g/dL (33.0-37.0); Mean Corpuscular Volume 91.6 fL (80.0-94.0); Nucleated Red Blood Cells % 0 % (-); Platelet Count 167 10^3/uL (130-400); Red Cell Dist. Width 12.9 % (11.5-14.5)
[2025-06-18 09:06] LABS: ALT (SGPT) 49 U/L (0-50); AST (SGOT) 132 U/L (17-59); Albumin 3.5 g/dl (3.5-5.0); Alkaline Phosphatase 59 U/L (38-126); Blood Urea Nitrogen 27 mg/dl (9-20); Calcium 8.7 mg/dl (8.4-10.2); Carbon Dioxide 25 mmol/L (22-30); Chloride 104 mmol/L (98-107); Estimated Creatinine Clearance 70 ml/min; Glucose 250 mg/dl (70-99); Magnesium 1.8 mg/dl (1.6-2.3); Potassium 4.4 mmol/L (3.5-5.1); Sodium 134 mmol/L (135-145); Total Protein 6.0 g/dl (6.3-8.2); eGFR > 60.00
--- NOTE | 2025-06-18 10:31 | W.PN.HOSP.TC ---
Today's Communication/Plan
-
Discharge today
Assessment / Plan
Assessment / Plan
Physical Exam
General: No Apparent Distress and Comfortable
HEENT: Normocephalic and Moist mucous membranes
Respiratory: Clear to Auscultation Bilaterally
Cardiac: S1/S2 and Regular Rhythm
GI: Soft, Non Tender and Normal Bowel Sounds
: No CVA tenderness. No suprapubic tenderness.
Musculoskeletal: No Cyanosis and No Edema
Skin: Warm and Dry
Neuro: Confused
Psych: Calm
Assessment/Plan
Diabetic Ketoacidosis overnight 06/15/25 to 06/16/25
Type 2 Diabetes Mellitus
Chronic Hyperglycemia -- chronically in the 300s -- with episodes of hypoglycemia
History of Significant Hypoglycemia
-DKA has resolved
-Subq Insulin started; continue
-Outpatient endocrinology is needed
Leukocytosis -- Suspected Secondary to Diabetic Ketoacidosis versus UTI
Urine culture with enterococcus
-Continue Amoxicillin -- no need to broaden antibiotics at this time, since he continues to improve
-Treat with Amoxicillin for a total of 7 days assuming he continues to clinically improve and remains afebrile for 48 hours prior to stopping antibiotic
-On discharge, will do current Amoxicillin regimen for another 20 doses -- patient is improving on this regimen
-Blood culture ordered on 06/16/25 with no growth to date
Presentation with Left-Sided Weakness/Slumped on the side of the Commode (with preserved consciousness)
History of Asymptomatic Left Carotid Artery Stenosis
Acute right pure motor lacunar syndrome
-Neurology consultation appreciated
-Discussed with Dr. Dotson, start Plavix 75 mg today, check CTA Head and Neck, MRI Brain without contrast
-In the past, CTA head/neck showed Left Carotid Bulb 80% stenosis, right carotid bulb 50% stenosis -- will consider vascular evaluation in hospital - previously it was noted that patient could benefit from outpatient carotid interventions
bilaterally to lower patient's stroke risk
-CT Head without acute stroke
-Checked CTA Head and Neck -- with significant carotid stenosis bilaterally
-Patient should stay on Plavix 75 and Lipitor 80 mg daily
-Added Aspirin 81 mg daily (received 325 mg Aspirin in the ER)
-Per neurology, continue ASA and Plavix for 21 days (Day 1 of Aspirin 81 mg was 06/14/25) -- but now Plavix is on hold as per GI in preparation for upper endoscopy
-Monitor for GI bleeding
-Brain MRI with no strokes
-Monitor on telemetry
Carotid Artery Stenosis
-Patient has an appointment with Dr. Guzman vascular surgeon on 06/22/25
-Notified Dr. Guzman who will see patient outpatient, no need for vascular intervention inpatient
History of Hyperkalemia in Setting of Enalapril
-Monitor potassium
Re-occurrence of hematemesis on 06/15/25
Upper GI Bleed/Copious Coffee Ground Emesis on 11/17/24
Gastrointestinal Bleeding/coffee-ground emesis
History of PUD and esophagitis
-EGD on 03/03/25 was unrevealing, but did show erythematous mucosa
-Colonoscopy on 03/06/25 was also unrevealing for bleed
-Per GI, patient was told he could follow-up outpatient for capsule endoscopy, and he would need repeat colonoscopy in 5 years for surveillance.
-Was supposed to get capsule endoscopy outpatient, but did not since capsule was flushed in the toilet by mistake, as per patient and his
-Monitor CBC
-Vomited up concern for bloody vomit on 06/15/25: PPI 40 mg PO BID on discharge for 1 month (followed by one time daily dosing), and also Carafate (discuss with outpatient doc when to stop)
-GI consult placed given patient needs to be on DAPT for suspected TIA -- resume Plavix (given Hgb stable and no further bleeding), and after 21 days, stop Aspirin 81 mg daily
Mild Hyponatremia
-Recheck labs outpatient
-PO FR
History of Minimally displaced 10th rib fracture
-From prior chest x-ray on 2/10
COPD
-Given patient's urinary retention, avoid LAMA; if maintenance inhaler is to be used, use a LABA/ICS
-prn nebulized bronchodilators - if patient becomes bronchospastic
-Incentive spirometer use 10x per hour for at least 4 hrs a day
Active smoker
-Encourage smoking cessation
Cardiomyopathy
-Continue dapagliflozin
History of Right pontine CVA
-Statin
-Resume home Plavix
-Continue newly started Aspirin, stop 21 days after discharge
Alcohol use disorder
-Thiamine and folate
-Alcohol withdrawal protocol -- received Ativan overnight 06/14/25 to 06/15/25 for elevated MSAS
Essential hypertension
-Currently holding his home BP medication Enalapril given ROSSY and hyperkalemia
-Can consider resuming Enalapril on outpatient basis after labs are rechecked
-Continue Procardia
GERD
-Continue PPI
Peptic Ulcer Disease
History of Urinary retention secondary to BPH
-Continue tamsulosin
-Bladder scans protocol/monitor for urinary retention
Hypercholesterolemia
-Continue statin, Zetia
Previous Weight Loss
-CT AP was checked earlier in 2024 for weight loss, the study was limited but overall unrevealing.
Constipation
-Provide bowel regimen on discharge
Code Status: Full code
DVT Prophylaxis: SCDs. Lovenox
Speech Evaluation: As of 06/17/25: soft bite sized solids with thin liquids -- as of 06/17/25, patient has some occasional wet coughing with intake but it�s super delayed and speech think it�s esophageal related.
On 06/16/25, I updated patient's about patient's Diabetic Ketoacidosis and transfer to ICU. I answered all of her questions and concerns to satisfaction.
On 06/18/25, I spoke with patient and his , and they are in agreement with patient being discharged today.
More than 30 minutes spent in discharge including
Final examination of the patient
Summarizing hospital stay
Instructions for continuing care to all relevant caregivers
Preparation of discharge records, prescriptions, and referral forms
Total time spent (in minutes): 41
Anticipated Discharge: Today
Subjective/Interval History
-
Date of Service: June 18, 2025
Patient was seen and examined. He reported feeling well, he denied burning with urination, abdominal pain or any other complaints. He stated that he would like to go home today.
Objective Data
-
Labs:
Laboratory Results
06/18/25
06:48
WBC 15.5 H
Hgb 12.7 L
Hct 36.2 L
Plt Count 167
Sodium 134 L
Potassium 4.4
Chloride 104
Carbon Dioxide 25
BUN 27 H
Creatinine 0.8
Glucose 250 H
Calcium 8.7
Total Bilirubin 1.5 H
AST 132 H
ALT 49
Alkaline Phosphatase 59
Vital Signs:
Vital Signs
Temp Pulse Resp BP Pulse Ox
98.5 F 79 19 168/92 94
06/18/25 08:21 06/18/25 08:21 06/18/25 08:21 06/18/25 08:21 06/18/25 08:21
I&O
06/17/25 06/18/25 06/19/25
06:59 06:59 06:59
Intake Total 4445 / 4445 1560 / 1560
Output Total 2024
Balance 2420 / 2420 -490 / -490
--- NOTE | 2025-06-18 10:47 | CM ---
Addendum entered by Debbie Castañeda 06/18/25 13:25:
Met with patient and at bedside to discuss discharge plan. Home Health service options identified; preference is [facility]. Referral sent via [facility]
[place] [address]; Contact , Sravani @ [phone] to coordinate home visits
Plan: Discharge to home today with home health services; will provide transport home
Original Note:
Met with patient at bedside; IMM benefit explained; form signed
Plan: pending PT re-evaluation; patient will discharge to home today
[2025-06-18 11:32] LABS: Glucose - Point of Care 195 mg/dl (70-99)
[2025-06-18] MEDS: NOVOLOG FLEXPEN-MODERATE RESISTANCE 1 UNITS SC (11:43)
[2025-06-18] MEDS: VASOTEC 5 MG PO (14:21)
--- NOTE | 2025-06-18 14:22 | W.PN.PUL3 ---
Today's Communication / Plan
-
DKA resolved � continue basal�bolus SQ insulin
Control BP with goal <130/80
Ok to resume enalapril; defer to primary team regarding decision to continue procardia
DuoNebs prn
If maintenance inhaler is needed, would avoid long-acting muscarinic antagonists given his urinary retention he has been experiencing over the last month (has been straight catheterizing himself)
Up OOB as tolerated
PT/OT
Maintain SpO2 88-95%
Stool regimen given fecal burden seen on AXR from 06/16/2025
No additional recs at this time. Signing off. Outpatient pulmonary office follow-up will be arranged with me (Dr. Lynch). Please call back with any questions or concerns.
Assessment
-
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 His blood sugar was in the 30s at home prior to EMS arriving. He
was Dx with a TIA. Initial blood glucose was 150, and later on admission, his POCT glucose was 74. Initial CT head was negative for acute CVA. CTA head/neck showed old lacunar infarcts, and 50-69% proximal right ICA stenosis. Initial CXR negative
for acute cardiopulmonary process. Neuro consulted and had concern for right lacunar stroke. Given ASA 325mg in the ER and NS 0.9% x 1 L, and admitted to telemetry. Brain MRI on 06/15/2025 was negative for an acute CVA. Patient's blood sugar began
to rise on the morning of 06/15, and it severely increased this morning (06/16) with glucose on his chemistry lab of 528, with significant metabolic acidosis with serum bicarbonate level of 7, ROSSY with creatinine 1.7, and hyperkalemia with potassium
initially 5.9 and worsened to 6.4. Patient diagnosed with DKA, started on insulin drip and transferred to the ICU for further care. Heating And Ventilating Drafter services consulted for additional management/recommendations.
Chronic conditions ORDER RUNNER: Diabetes mellitus type 1.5, hyperlipidemia, alcohol use disorder, fatty liver, tobacco use disorder, GERD, right pontine CVA, COPD, Hx of COVID-19 (05/2023), chronic HFpEF, history of CAP (January 2024), history of right-sided
traumatic PTX (11/15), colonic polyps, erectile dysfunction, gastric ulcers, right heel fracture (2009)
Impression:
#DM type II (uncontrolled: A1c 8.7 on 06/14/2025) complicated by DKA - DKA now resolved
#Metabolic acidosis with increased anion gap due to DKA + ROSSY - acidosis resolved
#ROSSY - improved
#Coffee-ground emesis (prior to arriving to ICU) - now resolved)
#Expressive aphasia/AMS due to TME (CT head negative for acute CVA on 06/16/2025) - aphasia now resolved
#HTN
#TIA
#Carotid artery stenosis with proximal R-ICA stenosis (50-69% stenosis via CTA head/neck � 06/13/2025)
#UTI due to E. faecalis
#Hyperbilirubinemia
#GERD
Plan:
- Given patient's lab findings with hyperglycemia, acidosis and nausea/vomiting, he was Dx with DKA and required insulin gtt
- DKA now resolved
- Continue basal-bolus SQ insulin
- Of note, patient's BG are usually in the 300s (per - prior to arrival)
- Diabetic BINDER COVERSTITCH consulted - recs appreciated
- Renally dose all meds
- Avoid nephrotoxic agents
- Trend UOP and daily sCr
- Ok to resume home anti-HTN med, enalapril; I also started Procardia in interim when we were holding his MAT-I. Maintain BP<130/80mmHg. Defer to primary team if procardia is to be continued and discharged home with this as well
- Continue with amoxicillin
- Follow up blood Cx (drawn 06/16 � shows NGTD)
- May need to broaden Abx if he deteriorates - since he is improving there is no need to broaden antibiotics at this time
- Trend WBC and monitor temperature curve
- Would treat for total of 7 days assuming he continues to clinically improve and remains afebrile for 48 hours prior to stopping antibiotic
- Maintain SpO2 88-95%; currently on room air and breathing comfortably
- Aspiration precautions
- Elevate HOB >30-45�
- Continue prn DuoNebs; he has occasional chest tightness/SOB - of note, given his urinary retention, would avoid LAMA; if maintenance inhaler is to be used, would use a LABA/ICS which he would likely benefit from anyway given that his absolute
eosinophil count from 06/13/2025 was 400, and recently in November 2024 it was 600
- He is not currently bronchospastic
- Encourage incentive spirometer use 10x per hour for at least 4 hrs a day
- Maintain MAP>65
- Replete electrolytes with K>4, Mg>2
- Trend H/H and transfuse if needed to keep Hb>7-8g/dL; keep plt>20k, unless there is concern for bleeding then keep plt>50k
- Continue PPI given recent coffee ground emesis, especially with a history of gastric ulcers, although no stomach ulcers seen on recent EGD on 03/03/2025, as there was a 4 cm hiatal hernia with erythematous mucosa in the stomach antrum with grade a
esophagitis at the GEJ and a questionable polyp in the stomach cardia
- PT/OT
- DVT ppx: LMWH
Code status: Full code
No additional recs at this time. Signing off. Outpatient pulmonary office follow-up will be arranged with me (Dr. Lynch). Thank you for allowing us to be involved in the care of this patient. Please call back with any questions or concerns.
Data:
Brain MRI 06/15/2025:
No acute intracranial abnormality noted. Advanced chronic senescent changes redemonstrated.
CTA head/neck with/without IV contrast 06/13/2025:
No acute intracranial pathology.
Moderate atrophy. Stable.
Moderate periventricular small vessel ischemic disease. Stable.
Old lacunar infarcts. Stable.
No acute vascular pathology. No M1 and M2 occlusion.
Less than 50% distal right common carotid artery stenosis
50-69% proximal right internal carotid stenosis
50-69% stenosis of the origin of the right vertebral artery
Less than 50% stenosis of the distal left common carotid artery. 50-69% stenosis of the proximal left internal carotid artery.
Multilevel degenerative disc disease of the cervical spine.
Less than grade 1 anterolisthesis of C2 on C3
CXR 06/13/2025:
No acute disease of the chest.
Findings suggesting mild COPD. Progressed.
AXR (portable) 06/16/2025:
Limited by single portable supine technique.
No grossly dilated bowel loops.
Mild to moderate colonic fecal burden.
Total time spent today was 36 minutes for this encounter. Time includes reviewing laboratory test/imaging results, reviewing pertinent medical records, obtaining and reviewing medical history, performing an appropriate exam, ordering medications,
tests and procedures. Time also includes documentation of this encounter, coordinating patient care and communicating with other healthcare professionals. Total time does not include separately billed tests performed on this date of service.
Subjective Data
-
Date of Service:
Date of Service: June 18, 2025
Chief Complaint: Pulmonary Follow Up
Subjective:
Pt seen and evaluated today at bedside (late note entry). He is resting in bed in NAD. at bedside. Denies SOB, chest pain, abd pain, N/V/f/c. He is having difficulty urinating, but says this is a chronic issue and he self-catheterizes at
home. He is eager to go home.
Patient was seen and evaluated on 06/18/2025
Review of Systems
General: Other (negative unless mentioned above)
Objective Data
Data Reviewed
Vital Signs / I&O / Oxygen:
Vital Signs
Temp Pulse Resp BP Pulse Ox
98.5 F 79 19 168/92 94
06/18/25 08:21 06/18/25 08:21 06/18/25 08:21 06/18/25 08:21 06/18/25 08:21
Intake and Output
06/17/25 06/18/25 06/19/25
06:59 06:59 06:59
Intake Total 4445 / 4445 1560 / 1560
Output Total 2024 / 2024
Balance 2420 / 2420 -490 / -490
SaO2 94
Nasal Cannula flow liters per 2
minute
Physical Exam
General: Respiratory Distress (negative), Comfortable, Chills (negative) and Sweats (negative)
HEENT: Normocephalic and Anicteric
Cardiovascular: S1-S2 and Peripheral Edema (negative)
Respiratory: Wheeze (negative), Crackles (negative), Rhonchi (negative), Non-Labored Respirations and Other (Diminished breath sounds bilaterally)
GI: Soft, Non Distended, Non Tender and Normal Bowel Sounds
Neurology: AO x 3 and Tremors (negative)
Skin: Warm, Dry, Cyanosis (negative) and Jaundice (negative)
Labs/Micro/Reports
Lab Data
06/18/25 06:48
06/18/25 06:48
Microbiology
06/16/25 16:05 Blood/Venous Blood Culture - Preliminary
No Growth in 24 hours- Final report to follow
06/13/25 16:50 Urine Urine Culture - Final
Enterococcus faecalis
[2025-06-18 16:24] LABS: Glucose - Point of Care 266 mg/dl (70-99)
[2025-06-18] MEDS: NOVOLOG FLEXPEN-MODERATE RESISTANCE 5 UNITS SC (16:46)
--- NOTE | 2025-06-18 17:42 | W.DCSUMMARY ---
Discharge Summary
Discharge Data
Date of Admission: 06/13/25
Date of Discharge: 06/18/25
Total time spent discharging patient (in min): 41
-
Pending Results: No
Hospital Course
75-year-old male with past medical history of carotid artery stenosis (with planned vascular surgery evaluation outpatient), pontine stroke, upper gastrointestinal bleeding, peptic ulcer disease, esophagitis, cardiomyopathy, type 2 diabetes
mellitus, hypoglycemia, COPD, tobacco smoking, alcohol use disorder, hypertension, hyperlipidemia, weight loss, GERD and urinary retention secondary to BPH (does self cath at home), was brought to [facility] ED by EMS for evaluation of left-sided weakness
noted by at home just prior to dispatch of 911. Patient does have a prior history of CVA and per patient's had left-sided weakness with that. Patient had low blood sugar in the 30s (per patient's ) and she gave him orange juice, and
solid carbohydrates, patient then went to the bathroom, but had difficulty getting up from his commode, and EMS noted that his left side seemed weaker. Patient had difficulty using his left arm and walking independently. EMS noted prehospital blood
sugar to be 130. No recent change in medications. Patient denied any urinary discomforts. He denied headache, amaurosis fugax or other visual disturbance. CTA Head and Neck showed, as per radiologist's impression, no acute intracranial pathology,
stable moderate atrophy, stable moderate periventricular small vessel ischemic disease, stable old lacunar infarcts, no acute vascular pathology, no M1 and M2 occlusion, less than 50% distal right common carotid artery stenosis, 50-69% proximal
right internal carotid stenosis, 50-69% stenosis of the origin of the right vertebral artery, less than 50% stenosis of the distal left common carotid artery, 50-69% stenosis of the proximal left internal carotid artery, multilevel degenerative disc
disease of the cervical spine and less than grade 1 anterolisthesis of C2 on C3. Neurology was consulted and recommended dual antiplatelet therapy with initiation of Aspirin with plan for 21 days of dual antiplatelet therapy. Brain MRI showed no
acute strokes. Patient had some vomiting during the hospitalization, with concerns for possible hematemesis. Plavix was held in case gastroenterology wanted to do upper endoscopy -- later Plavix was resumed as patient had no further hematemesis and
hemoglobin overall stable so no need for upper endoscopy. Gastroenterology recommended Pantoprazole twice per day, as well as Carafate. Patient was temporarily NPO. Neurology recommended continuing combined aspirin 81 mg and clopidogrel 75 mg daily
for 21 days, then clopidogrel alone. On 06/16/25, very early in the morning, patient developed Diabetic Ketoacidosis. Patient was transferred to the intensive care unit and started on large amounts of intravenous fluids and insulin drip. Patient
also needed bicarb drip. Fire Range Technician was consulted. Patient was continued on amoxicillin for suspected urinary tract infection. Patient's diabetic ketoacidosis resolved and Diabetes Nurse Practitioner was consulted. Patient's home Insulin regimen
was resumed and patient was stable for discharge.
Discharge Plan
-
Patient Disposition: Home with Home Care
Discharge Diagnosis/Procedures: Diabetic Ketoacidosis overnight 06/15/25 to 06/16/25
Type 2 Diabetes Mellitus
Chronic Hyperglycemia -- chronically in the 300s -- with episodes of hypoglycemia
History of Significant Hypoglycemia
Leukocytosis -- Suspected Secondary to Diabetic Ketoacidosis versus UTI
Urine culture with enterococcus
Presentation with Left-Sided Weakness/Slumped on the side of the Commode (with preserved consciousness)
History of Asymptomatic Left Carotid Artery Stenosis
Acute right pure motor lacunar syndrome
Carotid Artery Stenosis
History of Hyperkalemia in Setting of Enalapril
Re-occurrence of hematemesis on 06/15/25
Upper Gastrointestinal Bleed/Copious Coffee Ground Emesis on 11/17/24
Gastrointestinal Bleeding/coffee-ground emesis
History of PUD and esophagitis
Mild Hyponatremia
History of Minimally displaced 10th rib fracture
COPD
Active smoker
Cardiomyopathy
History of Right pontine CVA
Alcohol use disorder
Essential hypertension
GERD
Peptic Ulcer Disease
History of Urinary retention secondary to BPH
Hypercholesterolemia
Previous Weight Loss
Constipation
Condition: Good
Diet: Low Fat, Low Cholesterol, Low Sodium, 2 Gram Sodium, Diabetic, Carb Controlled and Restrict fluids to 48 oz
Additional Diets: Soft bite sized solids, thin liquids
Driving Restrictions: No driving
Blood Work: CBC, Comprehensive Metabolic Panel and Magnesium with your primary care provider's office in 2 to 3 days
Other Services: VN
Activity Restrictions/Additional Instructions:
You need an appointment in the next 1 to 2 weeks with wood mechanist (referral placed)
Continue self-cath urine at home.
Return to ER if any new symptoms
Incentive spirometer use ten times per hour for at least 4 hours per day
Continue both Aspirin 81 mg daily AND Plavix (Clopidogrel) for the next 21 days, and then after that, STOP Aspirin and continue Clopidogrel alone after those 21 days
Follow-up with Vascular surgery as an outpatient for carotid stenosis.
Follow aspiration and reflux precautions with any oral intake: head of bed (HOB) upright for all oral intake and for 60 minutes after oral intake; HOB upright at least 30 minutes at night; small bites/sips, slow intake rate, small frequent meals,
try not to over-eat, avoid reflux-triggering foods/drinks.
Eat soft bite sized solids and drink thin liquids.
Instructions: Hyperosmolar hyperglycemic state, Diabetic ketoacidosis, Low blood sugar in people with diabetes, Nifedipine, Diabetic ketoacidosis (DC), High blood sugar in adults - ED (DC), Low blood sugar in adults - ED (DC)
Referrals:
Noemi Cantu MD [Consulting Staff, Endocrinology] - in one week
Referral Note: Brittle Diabetes? DKA in hospital. Also had hypoglycemia at home. Needs endocrinology appointment sooner rather than later.
Amelia Broussard MD [Family Provider, Internal Medicine]
Gege Andre MD [Active, Gastroenterology]
Referral Note: return to GI for any recurrent vomiting. If continued wt loss return to discuss repeat CT
Additional Discharge Medication Instructions: Continue both Aspirin 81 mg daily AND Plavix for the next 21 days, and then after that, STOP Aspirin and continue Clopidogrel alone after those 21 days.
Amoxicillin is a new antibiotic for urinary tract infection.
Nifedipine is a new medication for high blood pressure.
Your Pantoprazole has been increased from 40 mg daily to 40 mg twice daily given concern for gastrointestinal bleeding -- this is especially important since you are on Aspirin for 21 days and also on Plavix; continue Protonix 40 mg twice daily
for 1 month, FOLLOWED BY 40 mg Protonix ONE-time daily
Continue Carafate (discuss with outpatient doctor when to stop) to treat/prevent gastrointestinal bleeding.
Polyethylene Glycol and Sennosides are new medications to help treat and prevent constipation.
Prescriptions:
New
amoxicillin 500 mg Capsule
500 mg PO Q8H Qty: 20 0RF
sucralfate 100 mg/mL Suspension
1 g PO ACHS Qty: 1000 0RF
aspirin 81 mg Tablet,Chewable
81 mg PO DAILY Qty: 21 0RF
polyethylene glycol 3350 17 gram Powder In Packet
17 g PO DAILY Qty: 30 1RF
nifedipine 30 mg Tablet Extended Release
30 mg PO DAILY Qty: 30 1RF
pantoprazole 40 mg Tablet,Delayed Release (Dr/Ec)
See Rx Instructions .ROUTE .COMPLEX Qty: 90 1RF
Rx Instructions:
40 mg BID for 1 month, followed by 40 mg daily
sennosides [Kelley-fabricio] 8.6 mg Tablet
8.6 mg PO BID Qty: 60 1RF
Continued
clopidogrel 75 MG tablet
75 mg PO DAILY
atorvastatin 80 mg Tablet
80 mg PO QPM
ezetimibe 10 mg Tablet
10 mg PO DAILY
Patient Comments:
01/30/2024, pt. unsure if he is taking this med. or not; filled on 01/05/2024 for a 30-day supply.
tamsulosin 0.4 mg Capsule
0.4 mg PO DAILY
Humulin N NPH U-100 Insulin 100 unit/mL suspension
26 unit SC DAILY
Humulin N NPH U-100 Insulin 100 unit/mL suspension
16 unit SC QHS
finasteride 5 mg Tablet
5 mg PO DAILY
enalapril maleate 5 mg tablet
5 mg PO BID
Held
dapagliflozin propanediol [Farxiga] 10 mg Tablet
10 mg PO DAILY
Hold Instructions: Resume on 07/05/25. Discuss with your outpatient physician if and when you should resume this medication, based on your renal function and any other factors.
Discontinued
acetaminophen 500 mg Tablet
1,000 mg DAILYPRN PRN (Reason: mild pain)
pantoprazole [Protonix] 40 mg tablet,delayed release (DR/EC)
40 mg PO DAILY
amoxicillin-pot clavulanate 875-125 mg tablet
1 tab PO Q12H 5 Days Qty: 10 0RF
Discharge Orders:
Discharge Patient (As Directed); Ordered 06/18/25
Ordered By: Reuben Quinones
Discharge Date and Time
Discharge Date/Time: 06/18/25 18:27
Print Language: YORUBA
[2025-06-21 06:35] LABS: Islet Cell Antibody, IgG <1:4 (<1:4)
== END 2025-06-18 18:27 | disposition home health service (06) | DRG 637 ==
LOC: 4 WEST ACU 07:34
PROVIDERS: Nurse Practitioner Family; Nurse Practitioner Primary Care; ADMITTING PHYSICIAN Hospitalist; CONSULT PHYSICIAN Internal Medicine Critical Care Medicine; CONSULT PHYSICIAN Internal Medicine Gastroenterology; CONSULT PHYSICIAN Psychiatry & Neurology Neurology; EMERGENCY PHYSICIAN Emergency Medicine; FAMILY PHYSICIAN Internal Medicine
DX: E11.10 Type 2 diabetes mellitus with ketoacidosis without coma (principal); G92.8 Other toxic encephalopathy; E87.1 Hypo-osmolality and hyponatremia; I16.1 Hypertensive emergency; I50.32 Chronic diastolic (congestive) heart failure; N39.0 Urinary tract infection, site not specified; N17.9 Acute kidney failure, unspecified; I42.9 Cardiomyopathy, unspecified; K92.0 Hematemesis; E11.649 Type 2 diabetes mellitus with hypoglycemia without coma; E11.65 Type 2 diabetes mellitus with hyperglycemia; G46.5 Pure motor lacunar syndrome; I65.21 Occlusion and stenosis of right carotid artery; E78.00 Pure hypercholesterolemia, unspecified; D72.829 Elevated white blood cell count, unspecified; N40.1 Benign prostatic hyperplasia with lower urinary tract symptoms; R33.8 Other retention of urine; K21.9 Gastro-esophageal reflux disease without esophagitis; F10.10 Alcohol abuse, uncomplicated; K44.9 Diaphragmatic hernia without obstruction or gangrene; I11.0 Hypertensive heart disease with heart failure; R63.4 Abnormal weight loss; E87.5 Hyperkalemia; F17.210 Nicotine dependence, cigarettes, uncomplicated; B95.2 Enterococcus as the cause of diseases classified elsewhere; J44.9 Chronic obstructive pulmonary disease, unspecified; Z68.20 Body mass index [BMI] 20.0-20.9, adult; Z79.899 Other long term (current) drug therapy; Z79.82 Long term (current) use of aspirin; Z86.73 Personal history of transient ischemic attack (TIA), and cerebral infarction without residual deficits; Z79.02 Long term (current) use of antithrombotics/antiplatelets; Z79.4 Long term (current) use of insulin
CPT/HCPCS: 36600; 70450; 70496; 70498; 70551; 71046; 74018; 80048; 80053; 80061; 81003; 81015; 82077; 82248; 82805; 82947; 82962; 83036; 83735; 84100; 84484; 85018; 85025; 85027; 85610; 85730; 86341; 87040; 87077; 87086; 87186; 92526; 92610; 93005; 93306; 94640; 94760; 96361; 96374; 97116; 97129; 97163; 97167; 97168; 97530; 99285; Q9967

== ENCOUNTER 2025-06-18 19:41 | Emergency (ER) | payer MEDICARE, SELFPAY ==
[2025-06-18 19:43] VITALS: BP 111/60; BMI 20.1
[2025-06-18 19:52] VITALS: BP 111/60
[2025-06-18 20:01] VITALS: BP 105/59
[2025-06-18 20:01] LABS: Glucose - Point of Care 143 mg/dl (70-99)
[2025-06-18 20:15] LABS: Hematocrit 36.6 % (39.0-52.0); Hemoglobin 13.1 g/dL (13.0-18.0); Mean Corp Hgb Conc. 35.8 g/dL (33.0-37.0); Mean Corpuscular Volume 90.4 fL (80.0-94.0); Nucleated Red Blood Cells % 0 % (-); Platelet Count 161 10^3/uL (130-400); Red Cell Dist. Width 12.7 % (11.5-14.5)
[2025-06-18 20:43] LABS: ALT (SGPT) 45 U/L (0-50); AST (SGOT) 89 U/L (17-59); Albumin 3.5 g/dl (3.5-5.0); Alkaline Phosphatase 55 U/L (38-126); Blood Urea Nitrogen 33 mg/dl (9-20); Calcium 9.2 mg/dl (8.4-10.2); Carbon Dioxide 29 mmol/L (22-30); Chloride 102 mmol/L (98-107); Estimated Creatinine Clearance 51 ml/min; Glucose 156 mg/dl (70-99); Potassium 3.9 mmol/L (3.5-5.1); Sodium 134 mmol/L (135-145); Total Protein 6.5 g/dl (6.3-8.2); eGFR > 60.00
[2025-06-18 21:00] VITALS: BP 107/68
--- NOTE | 2025-06-18 21:28 | ED.GENMED ---
History of Present Illness
General
Chief Complaint: Fall
Source: patient
Exam Limitations: none
Time Seen by Provider: 06/18/25 20:28
Nursing documentation reviewed up to this point in time: agreed with
History of Present Illness
History of Present Illness:
Patient to ED after fall. He was just discharged from her and fell while getting out of car at home. Hit face on pavement. No LOC. Sustained laceration to chin. On plavix. Brought back to ED via EMS for eval.
Past History
Past History
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
ED Past Surgical History: Orthopedic (right heel fracture 2009), Tonsilectomy and Urological
Social History
Tobacco: Smoker
Alcohol: Daily
Drug: None
Personal:
Living: with family
Family History
Family History: Other (reviewed and noncontributory)
Review of Systems
Review of Systems
Allergies reviewed?: Yes
All Other Systems: ROS reviewed and negative except as documented in HPI and ROS
Constitutional: Reports no symptoms
EENT: Reports other (3 small lacerations noted to buccal mucosa of lower lip. Bilateral lower central incisors broken. Piece of broken tooth removed from lip laceration)
Respiratory: Reports no symptoms
Cardiac: Reports no symptoms
ABD/GI: Reports no symptoms
: Reports no symptoms
Musculoskeletal: Reports no symptoms
Skin: Reports other (laceration to chin)
Neurological: Reports no symptoms
Psychiatric: Reports no symptoms
Phy Exam
General Physical Exam
General Presentation: mild distress
General age: appears stated age
General Skin: warm and dry
General Habitus: normal
General Mental: alert
ENT Exam
ENT Exam: other (Bilateral lower central incisors broken. Three 1cm lacerations to bucal mucosa. Not gaping. No active bleedng. No closure indicated)
Cardiovascular Exam
Cardiovascular Exam: regular rate/rhythm and no edema
Pulmonary Exam
Pulmonary Exam: lungs clear, no respiratory distress and chest non tender
Gastrointestinal Exam
Gastrointestinal Exam: normal bowel sounds, non tender, soft and no organomegaly
Neurological Exam
Neurological Exam: alert, oriented x3, CN II-XII intact, no motor deficits, no sensory deficits and speech normal
Musculoskeletal Exam
Musculoskeletal Exam: full ROM, neuro vasc intact and other (full nonpainful ROM head/neck, upper and lower extremities. )
Skin Exam
Skin Exam: normal color, warm/dry, no rash and other (chin laceration. 3 small lacerations to buccal mucosa of lower lip)
Psychiatric Exam
Psychiatric Exam: normal mood/affect
Course
Orders/Labs/Results
Orders:
Orders
06/18/25 20:06
CMP [Comprehensive Metabolic Panel] Urgent
Complete Blood Count/With Diff Urgent
06/18/25 20:48
CT Head W/o Iv Contrast Urgent
Comment:
Reason For Exam: fall
Abnormal Lab Results
06/18/25 06/18/25
19:59 20:06
WBC 12.3 H 10^3/uL
(4.8-10.8)
RBC 4.05 L 10^6/uL
(4.70-6.10)
Hct 36.6 L %
(39.0-52.0)
MCH 32.3 H pg
(27.0-31.0)
Abs Immat Gran (auto) 0.1 H 10^3/uL
(0-0.05)
Absolute Neuts (auto) 10.1 H 10^3/uL
(1.4-6.5)
Absolute Monos (auto) 0.9 H 10^3/uL
(0.1-0.6)
Immature Gran % 0.6 H %
(0-0.5)
Neutrophils % 81.5 H %
(42.2-75.2)
Lymphocytes % 10.5 L %
(20.5-51.1)
Sodium 134 L mmol/L
(135-145)
BUN 33 H mg/dl
(9-20)
Glucose 156 H mg/dl
(70-99)
Total Bilirubin 1.9 H mg/dl
(0.2-1.3)
AST 89 H U/L
(17-59)
POC Glucose 143 H mg/dl
(70-99)
06/18/25 20:06
06/18/25 20:06
Vital Signs
Initial and Last Documented VS:
Initial Vital Signs
Temp Pulse Resp BP Pulse Ox
98.7 F 69 20 111/60 93
06/18/25 19:43 06/18/25 19:43 06/18/25 19:43 06/18/25 19:43 06/18/25 19:43
Last Documented Vital Signs
Temp Pulse Resp BP Pulse Ox
98.7 F 68 18 126/69 94
06/18/25 19:43 06/18/25 22:00 06/18/25 22:29 06/18/25 22:00 06/18/25 22:00
Procedures
Laceration Closure
Anterior chin:
Status of Wound: clean
Description of Wound Edges: sharp
Preparation: cleaned with saline
Anesthesia: 1% Lidocaine with epi
Revision/Debridement: routine- no revision
Wound exploration: foreign body removed (piece of lower central incisor)
Type of Closure: single layer closure
*Radiology
Radiology exam reviewed: radiology read reviewed
*Pulse Oximetry
SaO2: 92
Oxygen Mode of Delivery: Room air
Patient hypoxic: no
*Critical Care Note
Total Time (30-74mins, 75-104mins- exclusive of procedures): Not Applicable
Update Note
Update Note:
Patient to ED after fall in driveway. states she was unable to get the walker to him fast enough. He sustained a laceration to his chin. 3 lacerations noted to buccal mucosa of lower lip. THeses laceratons were not closed. They are not
gaping. Patient will perform salt water rinses after meals. He broke the left and right lower central incisors. Piece of tooth pulled from chin laceration. He states these teeth were due to be pulled and he will follow up with his dentist this
week. Head CT neg for acute findings. Moving all extremities, equal stength bilaterally. Spoke with . SHe reports home services will be call in AM. He is scheduled for in home PT. I offered to admit for rehab placement but she would like
him to come home. WIll discharge home tonight.
ED Attending Note
-
Portions of this chart may have been created with voice recognition software.� Occasional wrong word or��sound alike� substitutions may have occurred due to the inherent limitations of voice recognition software.
Discharge Plan
Departure
Patient Disposition: Home (Routine Discharge)
Date of Disposition: 06/18/25
Time of Disposition: 22:14
Patient with high blood pressure during this ER visit?: No
Condition: Good
Covid-19: Not Applicable
Discharge Problem:
Head injury, Chin laceration, Dental trauma
Instructions: Head Injury in Adults (DC), Laceration Repair With Stitches (DC), Preventing falls in adults, Fractured Tooth (DC), Wound Inside The Mouth
Prescriptions:
No Action
clopidogrel 75 MG tablet
75 mg PO DAILY
atorvastatin 80 mg Tablet
80 mg PO QPM
ezetimibe 10 mg Tablet
10 mg PO DAILY
Patient Comments:
01/30/2024, pt. unsure if he is taking this med. or not; filled on 01/05/2024 for a 30-day supply.
tamsulosin 0.4 mg Capsule
0.4 mg PO DAILY
Humulin N NPH U-100 Insulin 100 unit/mL suspension
26 unit SC DAILY
Humulin N NPH U-100 Insulin 100 unit/mL suspension
16 unit SC QHS
finasteride 5 mg Tablet
5 mg PO DAILY
dapagliflozin propanediol [Farxiga] 10 mg Tablet
10 mg PO DAILY
enalapril maleate 5 mg tablet
5 mg PO BID
amoxicillin 500 mg Capsule
500 mg PO Q8H Qty: 20 0RF
sucralfate 100 mg/mL Suspension
1 g PO ACHS Qty: 1000 0RF
aspirin 81 mg Tablet,Chewable
81 mg PO DAILY Qty: 21 0RF
polyethylene glycol 3350 17 gram Powder In Packet
17 g PO DAILY Qty: 30 1RF
nifedipine 30 mg Tablet Extended Release
30 mg PO DAILY Qty: 30 1RF
pantoprazole 40 mg Tablet,Delayed Release (Dr/Ec)
See Rx Instructions .ROUTE .COMPLEX Qty: 90 1RF
Rx Instructions:
40 mg BID for 1 month, followed by 40 mg daily
sennosides [Kelley-fabricio] 8.6 mg Tablet
8.6 mg PO BID Qty: 60 1RF
Referrals:
Amelia Broussard MD [Family Provider, Internal Medicine] - Follow up in 2-3 days
Activity Restrictions/Additional Instructions:
Follow up with your dentist this week.
Interventions
Interventions:
*Risk Screen - Suicide Last Done: 06/18/25 19:43
*General Assessment Last Done: 06/18/25 19:43
*Neglect/Abuse Screening Last Done: 06/18/25 19:43
*ED- Fall Risk Assessment Last Done: 06/18/25 19:43
*ED COVID-19 Vaccine History Last Done: 06/18/25 19:43
*Nursing Disposition Last Done: 06/18/25 22:30
ED-Musculoskeletal Assessment Last Done: 06/18/25 20:04
ED- Neurological Assessment Last Done: 06/18/25 20:04
ED-Skin Assessment Last Done: 06/18/25 20:04
Discharge Date and Time
Discharge Date/Time: 06/18/25 22:32
Print Language: PASHTO
Skin Exam
Laceration
Anterior chin:
Length in cm: 1
Orientation: horizontal
Type of Laceration: layered
Any active bleeding?: no active bleeding
Distal skin color and temperature: normal-warm & good color
Normal distal neurovascular exam: Yes
Range of motion: full
[2025-06-18 22:00] VITALS: BP 126/69
== END 2025-06-18 22:32 | disposition home or self-care (01) ==
LOC: EMR 19:41
PROVIDERS: EMERGENCY PHYSICIAN Emergency Medicine; FAMILY PHYSICIAN Internal Medicine
DX: S09.90XA Unspecified injury of head, initial encounter (principal); S01.81XA Laceration without foreign body of other part of head, initial encounter; S02.5XXA Fracture of tooth (traumatic), initial encounter for closed fracture; E10.9 Type 1 diabetes mellitus without complications; I10 Essential (primary) hypertension; E78.00 Pure hypercholesterolemia, unspecified; K21.9 Gastro-esophageal reflux disease without esophagitis; K27.9 Peptic ulcer, site unspecified, unspecified as acute or chronic, without hemorrhage or perforation; F17.200 Nicotine dependence, unspecified, uncomplicated; Z79.02 Long term (current) use of antithrombotics/antiplatelets; Z79.82 Long term (current) use of aspirin; Z79.4 Long term (current) use of insulin; Z86.73 Personal history of transient ischemic attack (TIA), and cerebral infarction without residual deficits; W01.198A Fall on same level from slipping, tripping and stumbling with subsequent striking against other object, initial encounter; Y92.008 Other place in unspecified non-institutional (private) residence as the place of occurrence of the external cause
CPT/HCPCS: 99284; 12011; 70450; 80053; 82962; 85025

== ENCOUNTER → 2025-07-05 11:11 | Outpatient (REF) | payer MEDICARE, SELFPAY | LOC: RAD 11:11 | PROVIDERS: ATTENDING PHYSICIAN Surgery Vascular Surgery; FAMILY PHYSICIAN Internal Medicine | DX: I65.23 Occlusion and stenosis of bilateral carotid arteries (principal) | CPT/HCPCS: 93880 ==

== ENCOUNTER → 2025-07-10 12:38 | Outpatient (REF) | payer MEDICARE, SELFPAY | LOC: RCS 12:38 | PROVIDERS: ATTENDING PHYSICIAN Student in an Organized Health Care Education/Training Program; FAMILY PHYSICIAN Internal Medicine | DX: R55 Syncope and collapse (principal); I49.1 Atrial premature depolarization; R00.0 Tachycardia, unspecified | CPT/HCPCS: 93225; 93226 ==

== ENCOUNTER 2025-07-15 09:10 | Inpatient (IN) | payer MEDICARE, SELFPAY ==
[2025-07-15] VITALS (20 sets, daily range): BP systolic 93–154; BP diastolic 52–107; BMI 22.3; BMI 21.9
[2025-07-15 06:59] LABS: Hematocrit 36.7 % (39.0-52.0); Hemoglobin 12.4 g/dL (13.0-18.0); Mean Corp Hgb Conc. 33.8 g/dL (33.0-37.0); Mean Corpuscular Volume 92.2 fL (80.0-94.0); Nucleated Red Blood Cells % 0 % (-); Platelet Count 224 10^3/uL (130-400); Red Cell Dist. Width 13.5 % (11.5-14.5)
--- NOTE | 2025-07-15 06:59 | ED.GENMED ---
History of Present Illness
General
Chief Complaint: Breathing Problem
Source: patient and ambulance crew
Exam Limitations: none
Time Seen by Provider: 07/15/25 06:43
Nursing documentation reviewed up to this point in time: agreed with
History of Present Illness
History of Present Illness:
Patient presents to ED secondary to shortness of breath noted this morning when he woke up around 4 AM. Patient does report having experienced shortness of breath when laying down the past 2 nights. Denies of leg swelling and pain. Denies chest
pain. Denies back pain. Denies fever or chills. Denies coughing. Patient does smoke daily. In addition, patient does admit to drinking alcohol, i.e. 2 beers every night. Denies recent travel or surgery. Denies sick contact. Denies previous
history of similar symptoms. Per paramedics, patient was found hypoxic at home with respite distress, with initial pulse ox 88% on room air. Patient received nebulizer treatment in route to the hospital, with mild improvement.
Past History
Past History
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
ED Past Surgical History: Orthopedic (right heel fracture 2009), Tonsilectomy and Urological
Social History
Tobacco: Smoker
Alcohol: Daily
Drug: None
Personal:
Living: with family
Family History
Family History: Other (reviewed and noncontributory)
Review of Systems
Review of Systems
Allergies reviewed?: Yes
All Other Systems: ROS reviewed and negative except as documented in HPI and ROS
Constitutional: Reports no symptoms; Denies fever
Respiratory: Reports trouble breathing; Denies cough
Cardiac: Reports no symptoms; Denies chest pain or palpitations
ABD/GI: Reports no symptoms; Denies vomiting or diarrhea
: Reports no symptoms
Musculoskeletal: Reports no symptoms; Denies edema
Skin: Reports no symptoms
Neurological: Reports no symptoms
Phy Exam
Physical Exam
Physical Exam:
Physical Exam
General: mild respiratory distress, not acutely ill. afebrile
Head: nc/at. eomi
Neck: supple. no meningeal signs.
Heart: irregular and tachycardic
Lungs: no acute respiratory distress. clear bilaterally. mild use intercostal muscles noted.
Abdomen: normal bowel sounds. not tender.
Neuro: alert and oriented x 3. no focal neurological deficits
Skin: no rash
Psychiatric: well kept. interactive and cooperative
Extremities: no edema. no calf tenderness.
Scores
Heart Failure Risk
Heart Failure Risk Score: Yes
History of Stroke or TIA: No
History of intubation for respiratory distress: No
Heart rate on ED arrival >/= 110: Yes
SaO2 <90% on arrival on room air: No
HR >/=110 during 3min walk test (or too ill to perform test): Yes
ECG has acute ischemic changes: No
Urea >/=12mmol/L (BUN 33.6mg/dL): No
Serum CO2>/=35mmol/L: No
Troponin I or T elevated to NC Level (0.4mg/dL): Yes
NT-proBNP >/=5,000ng/L (5,000pg/ml): No
HF Risk Score: 4
Admission Status: HIGH RISK 26.1% Consider SNF treatment or admission to hospital
Course
Orders/Labs/Results
Orders:
Orders
07/15/25 Breakfast
1800 calorie (15 carb) Diabetic
At Your Request: Full Participation
Does patient need a safe tray?: No
Diabetic Diet: Sodium, 2 Gram
07/15/25 06:45
Electrocardiogram (*1) Urgent
Reason for Study: Other
Other Reason for Exam: Respiratory Distress
EKG- Treatment ONCE
07/15/25 06:50
Alcohol Urgent
COVID-19 Antigen Urgent
Source: Nasal Swab
Complete Blood Count/With Diff Urgent
Comprehensive Metabolic Panel Urgent
Magnesium Urgent
NT-proBNP Urgent
Troponin I Urgent
Influenza A+B Rapid Molecular Urgent
KEVIN Source: Nasal Swab
Specimen Description:
07/15/25 06:58
CR Chest - 2 Views Urgent
Comment:
Reason For Exam: sob
07/15/25 07:09
Diltiazem HCl [Cardizem] 20 mg IV NOW STA
07/15/25 07:15
Diltiazem 125 mg/125 ml Nss [Cardizem] 125 mg in 125 ml IV PER PROTOCOL
Initial dose in mg/hr, then titrate:: 5
Titrate to keep:: Heart rate 80-100 bpm
Titrate by mg/hr:: 5 mg/hr
Frequency of titrations (minutes):: 15
Maximum dose in mg/hr:: 15
07/15/25 07:32
Furosemide [Lasix] 20 mg IV NOW STA
07/15/25 07:44
Diltiazem HCl [Cardizem] 30 mg IV NOW STA
07/15/25 07:52
EKG [Electrocardiogram (*1)] Urgent
Reason for Study: Atrial Flutter
07/15/25 07:53
EKG- Treatment ONCE
07/15/25 08:30
CARDIOLOGY CONSULT Routine
Consulting Provider: Beni Mars
Was physician already notified: Yes
Furosemide [Lasix] 40 mg IV NOW STA
07/15/25 08:32
Admit/Transfer Patient As Directed
Co-Sign Provider:
Level of Care: Inpatient admission
Assign to:: Telemetry
Physician / Group: violeta sheikh
Diagnosis: rapid flutter, CHF
Reason for Telemetry: Medication for Arrhythmia
Date to Stop Telemetry: 07/17/25
Time to Stop Telemetry: 11:00
Reason for Hospitalization: rapid flutter, CHF
Expected length of stay greater than two midnights?: Yes
ELOS- Estimated Length of Stay in days: 2
I certify the patient meets the requirements for IP care: Yes
PRN Pain Medication Management As Directed
May give lesser potent ordered pain med per pt: Yes
preference::
Protocol:: Medication orders for pain may be administered in a
manner that supports deferring to patient preference
when the pt is:
- Requesting an ordered lesser potent pain medication.
Least to most potent pain medications are defined
as: acetaminophen < NSAID < tramadol < opioids
(morphine, oxycodone, hydromorphone).
- Requesting a lesser dose of the same medication IF
ORDERED.
- Requesting a less intrusive route of administration
if both routes are prescribed by the provider (PO <
IV).
07/15/25 08:34
Code Status As Directed
Resuscitation Status: Full Code
07/15/25 08:39
Apixaban [Eliquis] 5 mg PO STAT STA
Diltiazem Extended Release [Cardizem Cd] 120 mg PO NOW STA
07/15/25 10:02
Electrocardiogram (*1) Q6H
Reason for Study: Chest Pain
Comment: at admission and Q6H x 2 (3 total), to be done with each troponin
Acetaminophen [Tylenol] 650 mg PO Q4HPRN PRN
Dextrose 50%-Water [Dextrose 50% Syringe] 12.5 grams IV [id number] PRN
Glucagon [GlucaGen] 1 mg IM PRN PRN
Ondansetron Injectable [Zofran] 4 mg IV Q6HPRN PRN
07/15/25 10:02
HF DIETARY CONSULT Routine
HF EDUCATOR CONSULT Routine
Comment:
Activity As Directed
Activity Level: Ambulate
Bedside Glucose Monitoring As Directed
Frequency: AC&HS
Additional Instructions:: Change to q6h if pt on TPN, tube feeding or not eating
Intake/ Output As Directed
Frequency: Per unit guidelines
Patient Education As Directed
Type: CHF folder
Comment: give on admission. Document in Interdisciplinary Education record
Sleep Apnea Assessment by RN As Directed
Comment:
Physician Instructions:
Vital Signs As Directed
Frequency: Other
Additional Instructions:: Q12 or per unit guidelines if more frequent.
Weight As Directed
Frequency: Daily
Type of Scale: Standing Scale
Comment: Daily morning weight. If unable to stand, use balanced bed scale.
Weight As Directed
Frequency: Once
Type of Scale: Standing Scale
Comment: Upon Admission. If unable to stand, use balanced bed scale.
Pulse Ox/cont/shift [RESP] Routine
Quantity: 1
Special Instructions: Daily pulse oximetry at rest. If greater than 92% at rest also obtain pulse oximetry
while ambulating as tolerated.
07/15/25 10:37
Troponin I Q6H
Comment: at admission & every 6 hours x 2 (3 total), ECG to be done with each level
07/15/25 11:30
Insulin Aspart Corrective Mod [Novolog Flexpen-Moderate Resistance] See Protocol SC AC
Sucralfate Suspension [Carafate Suspension] 1 gm PO ACHS
07/15/25 16:00
Furosemide [Lasix] 40 mg IV BID AT 0800,1600
07/15/25 16:02
Electrocardiogram (*1) Q6H
Reason for Study: Chest Pain
Comment: at admission and Q6H x 2 (3 total), to be done with each troponin
Troponin I Q6H
Comment: at admission & every 6 hours x 2 (3 total), ECG to be done with each level
07/15/25 20:00
Apixaban [Eliquis] 5 mg PO BID
Pantoprazole [Protonix] 40 mg PO BID
07/16/25 06:00
Basic Metabolic Panel IN AM
Cardiovascular Evaluation IN AM
Complete Blood Count/No Diff IN AM
Glycohemoglobin (HgbA1c) IN AM
Magnesium IN AM
Phosphorus IN AM
TSH Reflex To Free T4 IN AM
07/16/25 08:00
Tamsulosin [Flomax] 0.4 mg PO DAILY
07/17/25 06:00
Basic Metabolic Panel IN AM
07/17/25 11:00
DC Protocol for Telemetry ONCE
07/18/25 06:00
Basic Metabolic Panel IN AM
Abnormal Lab Results
07/15/25
06:50
RBC 3.98 L 10^6/uL
(4.70-6.10)
Hgb 12.4 L g/dL
(13.0-18.0)
Hct 36.7 L %
(39.0-52.0)
MCH 31.2 H pg
(27.0-31.0)
Absolute Neuts (auto) 7.3 H 10^3/uL
(1.4-6.5)
Absolute Monos (auto) 0.8 H 10^3/uL
(0.1-0.6)
Lymphocytes % 15.8 L %
(20.5-51.1)
Sodium 134 L mmol/L
(135-145)
Glucose 269 H mg/dl
(70-99)
Troponin I 0.589 H* ng/ml
07/15/25 06:50
07/15/25 06:50
Vital Signs
Initial and Last Documented VS:
Initial Vital Signs
Temp Pulse Resp BP Pulse Ox
97.9 F 133 28 154/105 93
07/15/25 06:42 07/15/25 06:42 07/15/25 06:42 07/15/25 06:42 07/15/25 06:42
Last Documented Vital Signs
Temp Pulse Resp BP Pulse Ox
98.9 F 71 20 126/62 97
07/15/25 10:36 07/15/25 10:36 07/15/25 10:36 07/15/25 10:36 07/15/25 10:36
MDM/Problems Addressed
MDM/Problems Addressed:
History and exam concerning for rapid atrial flutter causing fluid overload. Initial troponin noted, without chest pain. Patient started on Cardizem infusion along with Lasix. Patient will be admitted for further evaluation and treatment. Will
defer anticoagulation to admitting team and cardiology.
Dr. Mars, cardiology, notified via [facility] text.
Patient given second bolus of Cardizem with improved heart rate. Repeat EKG shows rate controlled atrial flutter. Will continue Cardizem infusion.
Critical care statement: A total of 40 minutes of critical care time was provided for this patient. This includes management of unstable vital signs, evaluation of the patient at bedside, reviewing the patient's pertinent medical records, discussion
with consultants, review of old EKGs and review of pertinent medical records. This time with separate from time utilized to perform the aforementioned documented procedures
*Pulse Oximetry
SaO2: 93
Oxygen Mode of Delivery: Room air
Patient hypoxic: no
*EKG
Interpreted by ED Provider?: Yes
EKG Intrepretation Date: 07/15/25
Heart Rate: 134
Rate: tachycardiac
Rhythm: atrial flutter
[place]: normal axis
Interval: normal interval
QRS Pattern: normal QRS
*Critical Care Note
Total Time (30-74mins, 75-104mins- exclusive of procedures): 40 min
ED Attending Note
-
Portions of this chart may have been created with voice recognition software.� Occasional wrong word or��sound alike� substitutions may have occurred due to the inherent limitations of voice recognition software.
Discharge Plan
Departure
Patient Disposition: Admit
Date of Disposition: 07/15/25
Time of Disposition: 07:43
Admit to: IMU
Presentation/result/management discussed w/ accepting MD/DO: Hospitalist
Discharge Problem:
Atrial flutter with rapid ventricular response, Fluid overload
Interventions
Interventions:
*Risk Screen - Suicide Last Done: 07/15/25 06:51
*General Assessment Last Done: 07/15/25 06:51
*Neglect/Abuse Screening Last Done: 07/15/25 06:51
*ED- Fall Risk Assessment Last Done: 07/15/25 06:51
*ED COVID-19 Vaccine History Last Done: 07/15/25 06:51
*ED Influenza Vaccine History Last Done: 07/15/25 06:51
*Nursing Disposition Last Done: 07/15/25 09:30
ED- Cardiac Assessment Last Done: 07/15/25 06:46
ED- Pulmonary Assessment Last Done: 07/15/25 06:46
Discharge Date and Time
Discharge Date/Time: 07/15/25 09:54
[2025-07-15 07:13] LABS: ALT (SGPT) 31 U/L (0-50); AST (SGOT) 27 U/L (17-59); Albumin 3.8 g/dl (3.5-5.0); Alkaline Phosphatase 77 U/L (38-126); Blood Urea Nitrogen 18 mg/dl (9-20); Calcium 8.8 mg/dl (8.4-10.2); Carbon Dioxide 27 mmol/L (22-30); Chloride 105 mmol/L (98-107); Estimated Creatinine Clearance 69 ml/min; Glucose 269 mg/dl (70-99); Magnesium 1.7 mg/dl (1.6-2.3); Potassium 4.4 mmol/L (3.5-5.1); Sodium 134 mmol/L (135-145); Total Protein 6.6 g/dl (6.3-8.2); eGFR > 60.00
[2025-07-15] MEDS: CARDIZEM 20 MG IV (07:17)
[2025-07-15] MEDS: CARDIZEM 125 IV (07:17)
[2025-07-15 07:20] LABS: COVID-19 Antigen Negative (Negative)
[2025-07-15 07:26] LABS: Troponin I 0.589 ng/ml
--- NOTE | 2025-07-15 07:36 | EDRN ---
the pts Sp02 on RA was 88%, this RN notified Dr. Faith and placed the pt on 3L NC, Sp02 came up to 93%, no c/o SOB, will continue to monitor the pt closely
[2025-07-15] MEDS: LASIX 20 MG IV (07:37)
[2025-07-15] MEDS: CARDIZEM 30 MG IV (07:47)
--- NOTE | 2025-07-15 07:51 | EDRN ---
pts HR in the 70's currently after second Cardizem bolus per Dr. Faith's orders, blood pressure 93/52 (66), the pt is currently still on 3L NC Sp02 now 95%, second EKG will be obtained
--- NOTE | 2025-07-15 08:00 | HPS.HSE ---
Family Physician
-
Family Physician: Amelia Broussard
Chief Complaint
-
Shortness of breath
History of Present Illness
75-year-old male with a past medical history of COPD, cigarette nicotine dependency, HH, GERD, CVA, HTN, HL, GIB/PUD, and diabetes presents with a 1 week history of dyspnea with activity, and orthopnea. reports that it has gotten worse in the
last 2 days. EMS found him to be satting 88% on room air. Upon arrival to the ER, he was found to have rapid atrial flutter. He received 2 boluses of IV diltiazem, and is currently on a diltiazem drip. He is now in controlled atrial flutter. He
denies chest pain, denies palpitations. No fever, no vomiting. No black or bloody stools. Does report left upper quadrant abdominal pain.
Medical History
Past Medical History
Past Medical History: Reports Other
Additional Past Medical History:
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
polyps, urinary retention requiring self-catheterization, erectile Dysfunction, falls, pneumothorax and T1DM- was dx at 37 years old.
Past Surgical History: Reports Other
Additional Past Surgical History:
Tonsillectomy
TURP
Social History
Tobacco: Smoker (Smokes 11 cigarettes a day)
Alcohol: Daily
Drug: None
Personal:
Living: With Family
Family History
Family History: Not pertinent
Allergies / Home Medications
Allergies reflects when Allergies were last updated in [facility].
Home Medications with original date entered in [facility]
Allergy/Medication List:
Allergies
Allergy/AdvReac Type Severity Reaction Status Date / Time
No Known Allergies Allergy Verified 06/18/25 19:43
Home Medications Table - record
�Medication �Instructions �Recorded �Confirmed
clopidogrel 75 mg tablet 75 mg PO DAILY Blood Clot 05/26/23 07/15/25
Prevention/Tx
atorvastatin 80 mg tablet 80 mg PO QPM High Cholesterol 08/19/23 07/15/25
ezetimibe 10 mg tablet 10 mg PO DAILY High Cholesterol 01/21/24 07/15/25
tamsulosin 0.4 mg capsule 0.4 mg PO DAILY Urinary Issue 11/16/24 07/15/25
dapagliflozin propanediol 10 mg 10 mg PO DAILY 03/02/25 07/15/25
tablet (Farxiga)
Held on 06/18/25.
Instructions: Resume on
07/05/25. Discuss with your
outpatient physician if and
when you should resume this
medication, based on your
renal function and any other
factors.
enalapril maleate 5 mg tablet 5 mg PO BID Blood Pressure 03/02/25 07/15/25
finasteride 5 mg tablet 5 mg PO DAILY BPH 03/02/25 07/15/25
insulin NPH isoph U-100 human 100 16 unit SC QHS Diabetes 03/02/25 07/15/25
unit/mL subcutaneous suspension
(Humulin N NPH U-100 Insulin
(isophane susp))
insulin NPH isoph U-100 human 100 26 unit SC DAILY Diabetes 03/02/25 07/15/25
unit/mL subcutaneous suspension
(Humulin N NPH U-100 Insulin
(isophane susp))
nifedipine 30 mg tablet,extended 30 mg PO DAILY #30 tabs 06/18/25 07/15/25
release
pantoprazole 40 mg tablet,delayed See Rx Instructions .Route 06/18/25 07/15/25
release .COMPLEX #90 tabs
sucralfate 100 mg/mL oral 1 g (10 mL) PO ACHS #1,000 mL 06/18/25 07/15/25
suspension
Review of Systems
-
A 12 point ROS was completed and negative except as noted: Yes
Physical Exam
Vital Signs
Vital Signs
Temp Pulse Resp BP Pulse Ox
98.5 F 136 23 130/92 95
07/15/25 07:19 07/15/25 07:47 07/15/25 07:45 07/15/25 07:47 07/15/25 07:45
Physical Exam
General: No Apparent Distress
HEENT: NormoCephalic, Anicteric and Moist mucous membranes
Respiratory: Clear and Other (Diminished breath sounds at the bases bilaterally)
Cardiac: S1/S2, Irregular Rhythm, Murmur and JVD
GI: Soft, Non Tender, Non Distended and Normal Bowel Sounds
Musculoskeletal: Edema, Left Lower Extremity and Edema, Right Lower Extremity
Neuro: Awake, Alert and Oriented
Psych: Calm
Laboratory Results
-
07/15/25 06:50
07/15/25 06:50
Laboratory Results
Total Bilirubin 1.2 mg/dl (0.2-1.3) 07/15/25 06:50
AST 27 U/L (17-59) 07/15/25 06:50
ALT 31 U/L (0-50) 07/15/25 06:50
Alkaline Phosphatase 77 U/L (38-126) 07/15/25 06:50
Troponin I 0.589 ng/ml H* 07/15/25 06:50
Data Reviewed
-
Medical Tests (Nuc Med, Echo, EKG etc): Image Personally Visualized and interpreted
Lab Data: Labs Reviewed by me
Impression/Plan
-
HPI: 75-year-old male with a past medical history of COPD, cigarette nicotine dependency, HH, GERD, CVA, HTN, HL, GIB/PUD, and diabetes presents with a 1 week history of dyspnea with activity, and orthopnea. reports that it has gotten worse in
the last 2 days. EMS found him to be satting 88% on room air. Upon arrival to the ER, he was found to have rapid atrial flutter. He received 2 boluses of IV diltiazem, and is currently on a diltiazem drip. He is now in controlled atrial flutter.
He denies chest pain, denies palpitations. No fever, no vomiting. No black or bloody stools. Does report left upper quadrant abdominal pain.
#New onset rapid atrial flutter
Rate now controlled status post IV diltiazem bolus and drip
Cardiology following, plan to transition to oral metoprolol
Start Eliquis 5 mg twice a day, discontinue Plavix
#Acute heart failure with mildly reduced ejection fraction
Lasix 40 mg IV twice daily
Resume Farxiga, continue enalapril. Did not tolerate Entresto in the past because of blood pressure
Trend creatinine, trend daily weights
#History of peptic ulcer disease
#History of GI bleed
#Left upper quadrant abdominal pain
Continue Carafate, Protonix 40 mg twice daily
Monitor hemoglobin
#Diabetes
Diagnosed at 37 years old
Is on NPH insulin, 26 units in the morning, 16 units at night
Will give reduced dose of 20 units in the morning, 12 units at night
Carb controlled diet, sliding scale insulin
#Coronary artery disease
Hold aspirin since he is being started on Eliquis
#Cigarette nicotine dependency
Smoking cessation counseling has been provided
Nicotine patch ordered
#Daily alcohol use
Drinks 2 beers a day
Monitor for withdrawal
#Urinary retention
Patient self catheterizes, continue finasteride
#Essential hypertension
Continue enalapril
#Hyperlipidemia
Continue statin
#Mild aortic stenosis
DVT prophylaxis�Eliquis
Full code
Updated at bedside 07/15
Total time spent to see the patient on the floor, examine the patient, review data and lab results, discuss treatment plan with patient, nursing staff around 79 minutes.
[2025-07-15] MEDS: LASIX 40 MG IV ×2 (08:43→16:35)
--- NOTE | 2025-07-15 08:49 | EDRN ---
medication reconciliation completed by this RN with the pts who is aware of what medications the pt is taking
--- NOTE | 2025-07-15 09:08 | EDRN ---
not giving Eliquis per Dr. Faith and not giving PO cardizem per Holly Vera WAITER/WAITRESS CAFETERIA who were both at the pts bedside
--- NOTE | 2025-07-15 09:28 | CON.CAR ---
Addendum entered and electronically signed by Beni Mars MD 07/15/25 14:54:
I saw and evaluated the patient, and I provided the substantive portion of the medical decision making.
I reviewed and agree with the note by Ms Vera and it accurately reflects our care.
I personally performed the medical decision making of the this encounter and my assessment and plan is below:
AF paroxysmal new
- NEERU DCCV on thursday
- try ratea control with metop
- now needs AC; likely Watchman candidate given problems with GI bleeding will discuss with primary carton marker machine Dr Rodriguez
HF
- IV diuresis
- new hypoxia likely 2/2 exacerbation
Original Note:
Consultation
Consultation Request
Date/Time Consultation Requested: 07/15/2025 0800
Date/Time Consultation Performed: 07/15/2025829
Requesting Provider: DR. Faith
Performing Provider: Dr. Mars
Reason for Consultation: SOB, atrial flutter RVR
Medical History
-
Chief Complaint: SOB
History of Present Illness:
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
2014), NIDDM, and chronic continued cigarette use presenting to the ER with increased SOB over the last 2 nights per his report. She states he has been up around 4am the last 2 mornings with increased SOB and cough. He would have to
reposition to get comfortable . He does feel slightly better siting up. No CP associated. No LE edema reported at home. There had been issues with higher BP's at home and a call was placed to the cardiology OP office. He was instructed to increase
the enalapril to 10mg BID.
Past Medical History
Past Medical History: Other (CAD,HTN, hyperlipidemia, carotid stenosis, DM, aortic stenosis, GERD, ED, gastritis, R pontine CVA, PNA, R pneumpthorax)
Past Surgical History: Other (TURP, tonsillectomy)
Social History
Tobacco: Smoker (10-11 cigs/day)
Alcohol: Daily (2 beers)
Personal:
Living: With Family
Family History
Family History: Reviewed & Not Pertinent
Allergies / Home Medications
Allergy/AdvReac Type Severity Reaction Status Date / Time
No Known Allergies Allergy Verified 06/18/25 19:43
�Medication �Instructions �Recorded �Confirmed �Type
clopidogrel 75 mg tablet 75 mg PO DAILY Blood Clot 05/26/23 07/15/25 History
Prevention/Tx
atorvastatin 80 mg tablet 80 mg PO QPM High Cholesterol 08/19/23 07/15/25 History
ezetimibe 10 mg tablet 10 mg PO DAILY High Cholesterol 01/21/24 07/15/25 History
tamsulosin 0.4 mg capsule 0.4 mg PO DAILY Urinary Issue 11/16/24 07/15/25 History
dapagliflozin propanediol 10 mg 10 mg PO DAILY 03/02/25 07/15/25 History
tablet (Farxiga)
Held on 06/18/25.
Instructions: Resume on
07/05/25. Discuss with your
outpatient physician if and
when you should resume this
medication, based on your
renal function and any other
factors.
enalapril maleate 5 mg tablet 5 mg PO BID Blood Pressure 03/02/25 07/15/25 History
finasteride 5 mg tablet 5 mg PO DAILY BPH 03/02/25 07/15/25 History
insulin NPH isoph U-100 human 100 16 unit SC QHS Diabetes 03/02/25 07/15/25 History
unit/mL subcutaneous suspension
(Humulin N NPH U-100 Insulin
(isophane susp))
insulin NPH isoph U-100 human 100 26 unit SC DAILY Diabetes 03/02/25 07/15/25 History
unit/mL subcutaneous suspension
(Humulin N NPH U-100 Insulin
(isophane susp))
nifedipine 30 mg tablet,extended 30 mg PO DAILY #30 tabs 06/18/25 07/15/25 Rx
release
pantoprazole 40 mg tablet,delayed See Rx Instructions .Route 06/18/25 07/15/25 Rx
release .COMPLEX #90 tabs
sucralfate 100 mg/mL oral 1 g (10 mL) PO ACHS #1,000 mL 06/18/25 07/15/25 Rx
suspension
Review of Systems
-
History Source: Patient and Family
All other systems: Negative unless noted
Constitutional: Fatigue and Sleep Disturbance
EENT: No Symptoms
Respiratory: Cough (yellow sputum) and Trouble Breathing
Cardiac: No Symptoms
Abdomen/GI: No Symptoms
: No Symptoms
Musculoskeletal: No Symptoms
Physical Exam
Vital Signs
Temp Pulse Resp BP Pulse Ox
98.6 F 66 24 105/67 96
07/15/25 09:15 07/15/25 09:15 07/15/25 09:15 07/15/25 09:15 07/15/25 09:15
Lab Results
07/15/25 06:50
07/15/25 06:50
Troponin I 0.589 ng/ml H* 07/15/25 06:50
Cpo-U-Qxonuokxoal Pept 3770 pg/ml 07/15/25 06:50
Physical Exam
General: Well Developed, Well Nourished and No Apparent Distress
Respiratory: Clear (decreased bases bilat)
Cardiac: S1/S2, Irregular Rhythm, Murmur (2/6 JOLIE LSB, apex) and Peripheral Edema (mild bilat ankle edema)
Breast: Deferred by me
GI: Soft, Non Tender and Non Distended
Musculoskeletal: No Cyanosis and Edema (mild bilat ankle edema)
Skin: Warm
Neuro: AO x 3
Impression / Plan
-
New onset atrial flutter:
-noted on recent monitor 07/13/25
-Rapide rate intially. IV diltiazem with improved rate control.
-once BP stable will transition to po metoprolol.
-CHADSVASC 8 ( HTN, HF, DM,carotid dz, CVA, age), initiate eliquis, d/c plavix
-will need to monitor H & H and GI symptoms, h/o PUD . Seen by GI in 05/2025 -on carafate and protonix as OP. Currently denies bleeding issues.
Acute HFmrEF:
-Echo from 10/2023 with improved EF to 55%
-pt had been off GDMT for unknown reasons at last OV ( fargixa, metoprolol, did not tolerate entresto in past b/c of BP)
-IV lasix which requires intense monitoring
-BNP 3770
-update echo
-GDMT as able with current Bp's
-fluid/sodium restrictions
CAD:
-prior fixed defect on stress
-trend troponin, initial 0.589
-hold on asa for now given need for eliquis and history of PUD with coffee ground emesis in 05/2025
HTN:
-enalapril recently increased as OP
Mild :
-on prior eho
Carotid Disease:
-bilat dz on US 50-69%
-follows with Dr. Guzman
Data Reviewed
-
Medical Tests (Nuc Med, Echo etc): Report Reviewed by me (echo 06/14/25 Left ventricle is normal in size with low-normal systolic function. LVEF 50-55%. 2. Aneurysmal apical septum/inferior wall. Hypokinesis of the mid inferolateral wall. 3. Mild
aortic stenosis.) and Other ( Lexiscan stress 10/10/23 ' perfusion imaging fixed basal inferolateral segment, basal inferior and inferoseptal EF 37 %)
Labs: Labs Reviewed by me, Discussed with Physician and Discussed with Nurse
Old Records: Reviewed (OP cardiology notes 01/18/25)
--- NOTE | 2025-07-15 09:29 | EDRN ---
cardizem gtt off per Dr. Silveira, HR in the 60's, the pt is on 3L NC Sp02 94%, no c/o chest pain, no c/o SOB, this RN called the receiving unit and notified them that paper report was going to be tubed up
--- NOTE | 2025-07-15 09:53 | EDRN ---
this RN noticed that the pts HR drops to the 50's, this RN notified Dr. Adamson, no new orders at this time, this RN confirmed that the pt will be going to Telemetry floor and this was confirmed with Dr. Adamson
[2025-07-15] MEDS: FARXIGA 10 MG PO (10:49)
[2025-07-15] MEDS: PROSCAR 5 MG PO (10:49)
[2025-07-15] MEDS: CARAFATE SUSPENSION 1 GM PO ×3 (10:49→21:15)
[2025-07-15] MEDS: ELIQUIS 5 MG PO ×2 (10:49→19:50)
[2025-07-15] MEDS: PROTONIX 40 MG PO ×2 (10:49→19:49)
[2025-07-15 11:34] LABS: Glucose - Point of Care 317 mg/dl (70-99)
[2025-07-15 11:43] LABS: Troponin I 0.913 ng/ml
[2025-07-15] MEDS: NOVOLOG FLEXPEN-MODERATE RESISTANCE 7 UNITS SC (11:50)
--- NOTE | 2025-07-15 11:53 | CM ---
Met patient and . They live in 2 level home, 2 steps to enter with first floor master bedroom and bath. He owns Rolling walker and shower chair but does not use them. He is very independent.
PCP Amelia Broussard
Pharmacy' [facility]
was just released from services of [facility]. HE would accept [facility] again if needed.
PLAN: Home no needs.
[2025-07-15 16:28] LABS: Glucose - Point of Care 167 mg/dl (70-99)
[2025-07-15] MEDS: NOVOLOG FLEXPEN-MODERATE RESISTANCE 1 UNITS SC (16:33)
[2025-07-15] MEDS: LIPITOR 80 MG PO (16:34)
[2025-07-15 16:47] LABS: Troponin I 2.000 ng/ml
[2025-07-15] MEDS: LOW STRENGTH ASPIRIN 324 MG PO (18:30)
[2025-07-15] MEDS: VASOTEC 5 MG PO (19:49)
[2025-07-15] MEDS: LOPRESSOR 25 MG PO (19:49)
[2025-07-15] MEDS: HUMULIN N KWIKPEN 12 UNITS SC (21:20)
[2025-07-15 21:21] LABS: Glucose - Point of Care 360 mg/dl (70-99)
[2025-07-16 03:23] VITALS: BP 140/90
[2025-07-16 06:00] VITALS: BMI 20.1
[2025-07-16 07:14] LABS: Glucose - Point of Care 117 mg/dl (70-99)
[2025-07-16 07:46] VITALS: BP 129/72
[2025-07-16] MEDS: CARAFATE SUSPENSION 1 GM PO ×4 (07:54→22:09)
[2025-07-16] MEDS: ELIQUIS 5 MG PO (07:55)
[2025-07-16] MEDS: VASOTEC 5 MG PO (07:55)
[2025-07-16] MEDS: FARXIGA 10 MG PO (07:55)
[2025-07-16] MEDS: NOVOLOG FLEXPEN-MODERATE RESISTANCE SC (07:55)
[2025-07-16] MEDS: LOPRESSOR 25 MG PO ×2 (07:55→19:34)
[2025-07-16] MEDS: ZETIA 10 MG PO (07:56)
[2025-07-16] MEDS: PROSCAR 5 MG PO (07:56)
[2025-07-16] MEDS: PROTONIX 40 MG PO ×2 (07:56→19:34)
[2025-07-16] MEDS: FLOMAX 0.4 MG PO (07:56)
[2025-07-16 07:59] LABS: Hematocrit 36.6 % (39.0-52.0); Hemoglobin 12.3 g/dL (13.0-18.0); Mean Corp Hgb Conc. 33.6 g/dL (33.0-37.0); Mean Corpuscular Volume 91.3 fL (80.0-94.0); Platelet Count 246 10^3/uL (130-400); Red Cell Dist. Width 13.3 % (11.5-14.5)
--- NOTE | 2025-07-16 08:07 | W.PN.HOSP.TC ---
Today's Communication/Plan
-
Continue IV Lasix
Change Eliquis to heparin drip
For echo and cardiac catheterization tomorrow
Assessment / Plan
Assessment / Plan
HPI: 75-year-old male with a past medical history of COPD, cigarette nicotine dependency, HH, GERD, CVA, HTN, HL, GIB/PUD, and diabetes presents with a 1 week history of dyspnea with activity, and orthopnea. reports that it has gotten worse in
the last 2 days. EMS found him to be satting 88% on room air. Upon arrival to the ER, he was found to have rapid atrial flutter. He received 2 boluses of IV diltiazem, and is currently on a diltiazem drip. He is now in controlled atrial flutter.
He denies chest pain, denies palpitations. No fever, no vomiting. No black or bloody stools. Does report left upper quadrant abdominal pain.
#New onset rapid atrial flutter
Rate now controlled status post IV diltiazem bolus and drip
Cardiology following, continue metoprolol to tartrate 25 mg twice a day
Started on Eliquis upon admission, changed to heparin drip for cardiac catheterization tomorrow
Discontinued Plavix
#Acute hypoxic respiratory insufficiency
#Acute heart failure with mildly reduced ejection fraction
Continue Lasix 40 mg IV twice daily. Wean oxygen as tolerated
Resumed Farxiga, continue enalapril. Did not tolerate Entresto in the past because of blood pressure
Trend creatinine, trend daily weights
#Probable non-ST elevation myocardial infarction
#Coronary artery disease
Troponin peaked at 2.0
Status post aspirin 324 mg x 1 yesterday
Start aspirin 81 mg daily today, IV heparin drip, echocardiogram requested, for cardiac catheterization tomorrow
#History of peptic ulcer disease
#History of GI bleed
#Left upper quadrant abdominal pain
Continue Carafate, Protonix 40 mg twice daily
Monitor hemoglobin
#Diabetes
Diagnosed at 37 years old
Is on NPH insulin, 26 units in the morning, 16 units at night
Will give reduced dose of 22 units in the morning, 12 units at night
Carb controlled diet, sliding scale insulin
#Cigarette nicotine dependency
Smoking cessation counseling has been provided
Nicotine patch ordered
#Daily alcohol use
Drinks 2 beers a day
Monitor for withdrawal
#Urinary retention
Patient self catheterizes, continue finasteride
#Essential hypertension
Continue enalapril
#Hyperlipidemia
Continue statin
#Mild aortic stenosis
DVT prophylaxis�Eliquis
Full code
Updated at bedside 07/15
Total time spent to see the patient on the floor, examine the patient, review data and lab results, discuss treatment plan with patient, nursing staff around 50 minutes.
Physical Exam
General: No acute distress
HEENT: Normocephalic, Atraumatic, EOMI, MMM
Respiratory: Clear to Auscultation bilaterally
Cardiac: Normal S1/S2, Regular Rate and Rhythm, +murmur
GI: Soft, Nontender, Nondistended, Normal Bowel Sounds
Extremities: No Clubbing, Cyanosis, or Edema
Neuro: Nonfocal/Grossly Intact
Psych: Calm, Cooperative
Anticipated Discharge: 24 - 48 hours
Subjective/Interval History
-
Date of Service: July 16, 2025
Shortness of breath improved. Denies chest pain, denies palpitations. No fever, no vomiting.
Objective Data
-
Labs:
Laboratory Results
07/16/25
07:38
WBC 6.8
Hgb 12.3 L
Hct 36.6 L
Plt Count 246
Sodium Pending
Potassium Pending
Chloride Pending
Carbon Dioxide Pending
BUN Pending
Creatinine Pending
Glucose Pending
Calcium Pending
Vital Signs:
Vital Signs
Temp Pulse Resp BP Pulse Ox
98.5 F 63 16 129/72 99
07/16/25 07:46 07/16/25 07:55 07/16/25 07:46 07/16/25 07:55 07/16/25 07:46
I&O
07/15/25 07/16/25 07/17/25
06:59 06:59 06:59
Intake Total 600 / 600
Output Total 2820 / 2820
Balance -2220 / -2220
[2025-07-16 08:10] LABS: Blood Urea Nitrogen 23 mg/dl (9-20); Calcium 9.2 mg/dl (8.4-10.2); Carbon Dioxide 33 mmol/L (22-30); Chloride 100 mmol/L (98-107); Estimated Creatinine Clearance 51 ml/min; Glucose 107 mg/dl (70-99); HDL Cholesterol 64 mg/dl; LDL Cholesterol, Calculated 56 mg/dl; Magnesium 1.9 mg/dl (1.6-2.3); Potassium 3.7 mmol/L (3.5-5.1); Sodium 139 mmol/L (135-145); Very Low Density Lipoprotein 12 mg/dl (0-30); eGFR > 60.00
[2025-07-16] MEDS: LASIX 40 MG IV ×2 (08:24→15:16)
[2025-07-16 08:50] LABS: APTT 32.1 Sec (23.4-35.0)
[2025-07-16 08:56] LABS: Glycohemoglobin (HgbA1c) 8.4 % (4.0-5.9)
[2025-07-16 09:06] LABS: Troponin I 1.450 ng/ml
[2025-07-16 11:27] VITALS: BP 130/70
[2025-07-16] MEDS: HUMULIN N KWIKPEN 20 UNITS SC (11:32)
[2025-07-16 11:33] LABS: Glucose - Point of Care 232 mg/dl (70-99)
[2025-07-16] MEDS: NOVOLOG FLEXPEN-MODERATE RESISTANCE 3 UNITS SC (11:33)
--- NOTE | 2025-07-16 12:39 | W.PN.CD ---
Today's Communication / Plan
-
Heparin gtt
NPO for cath
echo tomorrow
aspirin
Impression / Plan
-
New onset atrial flutter: back in SR
-noted on recent monitor 07/13/25
-Rapide rate intially. IV diltiazem with improved rate control.
-once BP stable will transition to po metoprolol.
-CHADSVASC 8 ( HTN, HF, DM,carotid dz, CVA, age), initiate eliquis, d/c plavix
-will need to monitor H & H and GI symptoms, h/o PUD . Seen by GI in 05/2025 -on carafate and protonix as OP. Currently denies bleeding issues.
NSTEMI trop peak 2
- seems out of proportion to AF RVR
- npo for cath tomorrow
- heparin gtt
- aspirin
- echo
Acute HFmrEF:
-Echo from 10/2023 with improved EF to 55%
-pt had been off GDMT for unknown reasons at last OV ( fargixa, metoprolol, did not tolerate entresto in past b/c of BP)
-IV lasix which requires intense monitoring
-BNP 3770
-update echo
-GDMT as able with current Bp's
-fluid/sodium restrictions
CAD:
-prior fixed defect on stress
-trend troponin, initial 0.589
-hold on asa for now given need for eliquis and history of PUD with coffee ground emesis in 05/2025
HTN:
-enalapril recently increased as OP
Mild :
-on prior eho
Carotid Disease:
-bilat dz on US 50-69%
-follows with Dr. Guzman
Physical Exam
Vital Signs/Labs
Vital Signs
Temp Pulse Resp BP Pulse Ox
98.5 F 58 16 130/70 99
07/16/25 11:27 07/16/25 11:27 07/16/25 11:27 07/16/25 11:27 07/16/25 11:27
07/15/25 07/16/25 07/17/25
06:59 06:59 06:59
Actual Weight 150 lb 12.739 oz 136 lb 1 oz
07/16/25 07:38
07/16/25 07:38
APTT 32.1 Sec (23.4-35.0) 07/16/25 08:19
Magnesium 1.9 mg/dl (1.6-2.3) 07/16/25 07:38
Triglycerides 63 mg/dl (10-149) 07/16/25 07:38
LDL Cholesterol, Calc 56 mg/dl 07/16/25 07:38
VLDL Cholesterol, Calc 12 mg/dl (0-30) 07/16/25 07:38
HDL Cholesterol 64 mg/dl 07/16/25 07:38
07/15/25
06:50
Wtc-P-Tanslivjsmg Pept 3770
LAB Results
07/15/25 07/15/25 07/15/25
06:50 10:37 16:07
Troponin I 0.589 H* 0.913 H* D 2.000 H* D
07/16/25 07/16/25 07/16/25
07:38 08:14 08:15
Troponin I Cancelled 1.450 H* Cancelled
07/16/25
16:15
Troponin I Cancelled
Physical Exam
Constitutional: No acute distress and Comfortable
EENT: Anicteric
Cardiovascular: Rhythm & rate is regular and Systolic murmur present
Respiratory: Respiratory effort normal and Lungs clear to auscul.
GI: Soft
Neuro/Psych: AO x 3
Data Reviewed
-
Date of Service: July 16, 2025
Medical Decision Making: Reviewed Test Results and Tests Ordered
EKG: Tracing Personally Visualized and interpreted (sr)
Labs: Labs Reviewed by me
[2025-07-16] MEDS: LOW STRENGTH ASPIRIN 81 MG PO (14:03)
[2025-07-16 15:51] VITALS: BP 116/57
[2025-07-16 16:15] LABS: Glucose - Point of Care 293 mg/dl (70-99)
[2025-07-16] MEDS: NOVOLOG FLEXPEN-MODERATE RESISTANCE 5 UNITS SC (16:26)
[2025-07-16] MEDS: LIPITOR 80 MG PO (16:35)
[2025-07-16 18:23] LABS: APTT 31.2 Sec (23.4-35.0)
[2025-07-16 19:32] VITALS: BP 112/58
[2025-07-16] MEDS: VASOTEC PO (19:33)
[2025-07-16] MEDS: HEPARIN 25000 UNITS/250 ML IV (20:12)
[2025-07-16 21:50] LABS: Glucose - Point of Care 100 mg/dl (70-99)
[2025-07-16] MEDS: HUMULIN N KWIKPEN SC (22:09)
[2025-07-16 23:03] VITALS: BP 120/52
[2025-07-17] VITALS (49 sets, daily range): BP systolic 66–152; BP diastolic 47–89; BMI 19.8
[2025-07-17 03:10] LABS: APTT 41.2 Sec (23.4-35.0)
[2025-07-17 03:19] LABS: Blood Urea Nitrogen 34 mg/dl (9-20); Calcium 8.5 mg/dl (8.4-10.2); Carbon Dioxide 33 mmol/L (22-30); Chloride 98 mmol/L (98-107); Estimated Creatinine Clearance 43 ml/min; Glucose 184 mg/dl (70-99); Potassium 4.0 mmol/L (3.5-5.1); Sodium 135 mmol/L (135-145); eGFR 57.29
[2025-07-17 06:07] LABS: Glucose - Point of Care 199 mg/dl (70-99)
[2025-07-17] MEDS: NOVOLOG FLEXPEN-MODERATE RESISTANCE 1 UNITS SC ×2 (06:08→18:09)
--- NOTE | 2025-07-17 06:46 | W.PN.UPDATE ---
Update Note
Progress Note Update
Notified by nursing patient is back in afib/flutter sustaining in 130s asymptomatic. Lopressor 5 mg IV x1 at 0645.
[2025-07-17] MEDS: LOPRESSOR 5 MG IV (06:49)
--- NOTE | 2025-07-17 07:16 | PTCARENOTE ---
Pt in rapid afib/aflutter this am starting around 0615-sustained in 130s. BP 137/66. Pt denies shortness of breath. House GEOPHYSICAL DATA TECHNICIAN notified and pt given lopressor 5mg IV as ordered.
[2025-07-17] MEDS: LOPRESSOR 50 MG PO (09:12)
[2025-07-17] MEDS: VASOTEC 5 MG PO (09:12)
[2025-07-17] MEDS: PROSCAR 5 MG PO (09:13)
[2025-07-17] MEDS: ZETIA 10 MG PO (09:13)
[2025-07-17] MEDS: ASPIR LOW (ENTERIC COATED) 81 MG PO (09:13)
[2025-07-17] MEDS: PROTONIX 40 MG PO (09:14)
[2025-07-17] MEDS: CARAFATE SUSPENSION PO ×3 (09:15→22:24)
[2025-07-17 09:46] LABS: APTT 55.6 Sec (23.4-35.0)
[2025-07-17 11:39] LABS: Glucose - Point of Care 197 mg/dl (70-99)
[2025-07-17] MEDS: NOVOLOG FLEXPEN-MODERATE RESISTANCE SC (12:23)
--- NOTE | 2025-07-17 12:45 | W.PN.CD ---
Today's Communication / Plan
-
Cardiac catheterization today.
Further treatment based on those findings.
Impression / Plan
-
Impression/Plan: 75 y/o male with a history of tobacco abuse with COPD, presumed CAD (abnormal stress test) and ICMO/HFmEF (LVEF 40-45%), HTN, HLD, PUD/GIB and IDDM1 (since age 37) admitted with BEAR/orthopnea with hypoxic respiratory failure and
new atrial flutter, found to have elevated troponin.
#Atrial flutter/Atrial fibrillation
-New diagnosis, noted on recent monitor 07/13/25.
-Controlled with diltiazem gtt, now converted to NSR (with an episode of AF-RVR this morning).
-Uptitrate metoprolol dose.
-CHADSVASC = 8 ( HTN, HF, DM,carotid dz, CVA (x2), age x2).
-D/C clopidogrel.
-Therapeutic anticoagulation with heparin gtt (given troponin elevation) until cardiac catheterization. shelter transition to apixaban.
#Abnormal troponin elevation
-Acute, DDX includes ACS/NSTEMI type 1 vs. type 2 vs. non-CT troponin elevation.
-Troponin peaked at 2.0.
-Appears out of proportion to AF RVR.
-NPO for cardiac catheterization/clarification of coronary anatomy.
#HFmrEF
-Acute.
-Echo from 05/2025 with EF of 50-55% with aneurysmal apex/septal wall, hypokinesis of the inferolateral wall.
-Patient had been off GDMT for unknown reasons at last OV ( fargixa, metoprolol, did not tolerate entresto in past b/c of BP).
-BNP 3770.
-Updated echocardiogram ordered/pending.
-Cardiac catheterization to clarify coronary anatomy and LVEDP.
-GDMT as hemodynamics will tolerate:
-Diuretics: Furosemide 40 mg IV BID.
-Beta da: Metoprolol tartrate 50 mg PO BID.
-ACEI/ARB/ARNi: Enalapril 5 mg PO BID. Patient previously intolerant of sacubitril-valsartan.
-MRA: None.
-SGLT2i: Dapagloflozin 10 mg daily.
-ICD: Not currently indicated.
#CAD
-Prior fixed defect on stress.
-Cardiac catheterization today to clarify coronary anatomy.
-Aggressive risk factor control. LDL currently 56 (essentially at goal).
-Continue atorvastatin/ezetimibe.
#HTN
-Chronic, stable.
-Enalapril recently increased as outpatient.
#Mild
-Chronic, stable.
#Carotid Disease:
-Chronic, stable.
-Bilateral disease on US - 50-69%.
-Follows with Dr. Guzman.
-Statin/risk factor modification.
Subjective/Interval History:
Rate control with diltiazem gtt, IV metoprolol.
SaO2 = 97% on RA.
DATA:
TTE, 06/14/2025:
SUMMARY
1. Left ventricle is normal in size with low-normal systolic function. LVEF 50-55%.
2. Aneurysmal apical septum/inferior wall. Hypokinesis of the mid inferolateral wall.
3. Mild aortic stenosis.
4. No significant change compared to prior echocardiogram in October 2024. Wall motion abnormalities are similar on direct visual comparison.
Physical Exam
Vital Signs/Labs
Vital Signs
Temp Pulse Resp BP Pulse Ox
36.6 C 71 16 109/49 97
07/17/25 11:45 07/17/25 11:45 07/17/25 11:45 07/17/25 11:45 07/17/25 11:45
07/16/25 07/17/25 07/18/25
11:59 11:59 11:59
Actual Weight 61.717 kg 60.923 kg
07/16/25 07:38
07/17/25 02:45
APTT 55.6 Sec (23.4-35.0) H 07/17/25 09:21
Magnesium 1.9 mg/dl (1.6-2.3) 07/16/25 07:38
Triglycerides 63 mg/dl (10-149) 07/16/25 07:38
LDL Cholesterol, Calc 56 mg/dl 07/16/25 07:38
VLDL Cholesterol, Calc 12 mg/dl (0-30) 07/16/25 07:38
HDL Cholesterol 64 mg/dl 07/16/25 07:38
07/15/25
06:50
Amr-D-Wcljhrtooef Pept 3770
LAB Results
07/15/25 07/15/25 07/15/25
06:50 10:37 16:07
Troponin I 0.589 H* 0.913 H* D 2.000 H* D
07/16/25 07/16/25 07/16/25
07:38 08:14 08:15
Troponin I Cancelled 1.450 H* Cancelled
07/16/25
16:15
Troponin I Cancelled
Physical Exam
Constitutional: No acute distress and Comfortable
EENT: Anicteric and Moist mucous membranes
Cardiovascular: Rhythm & rate is regular, Pedal edema is absent, JVD pressure is normal, Systolic murmur present and S1S2 is normal
Respiratory: Respiratory effort normal, Lungs clear to auscul., Wheeze Absent, Crackles Absent and Rhonchi Absent
GI: Soft, Distention absent, Flat, Non tender and Normal bowel sounds
Neuro/Psych: AO x 3
Data Reviewed
-
Date of Service: July 17, 2025
Medical Decision Making: Reviewed Test Results, Independent Historian Assessment and Test Interpretation
EKG: Tracing Personally Visualized and interpreted and Report Reviewed by me
Echo: Report Reviewed by me
X-Ray/CT/US/MRI/NUC/PET: Image Personally Visualized and interpreted and Report Reviewed by me
Medical Tests (PFT, Pathology etc): Report Reviewed by me
Labs: Labs Reviewed by me
Old Records: Reviewed
--- NOTE | 2025-07-17 13:30 | PTCARENOTE ---
received patient at 1330 from laboratory assistant. Patient AAOx3, a bit drowsy. Patient has no c/o pain, right radial site CDI. NSS infusing from laboratory assistant. patient educated not to get OOB without assistance, do not push off or lift with right hand. Patient
verbalized understanding.
--- NOTE | 2025-07-17 13:36 | ITS.CL.CATH ---
Sol[facility] Station Attendant - Catheterization
Cardiac Catheterization
Procedure Report:
CARDIAC CATHETERIZATION REPORT
Date of Procedure: 07/17/2025
Referring: Beni Mars M.D.
INDICATION: Coronary artery disease, abnormal troponin elevation, possible ACS.
PROCEDURE:
1. Left heart catheterization.
2. Coronary angiography.
A total of 0 minutes of procedural/moderate sedation was utilized. An independent medical coding technician was present to assist with and help manage the patient's level of consciousness and physiologic status.
ACCESS:
1. 6 Latvian right radial artery using a modified Seldinger technique.
CATHETERS:
1. 5 Latvian JR4.
2. 5 Latvian JL 3.5.
HEMODYNAMIC DATA
Weight (kg): 60.8
AO (s/d/x, mmHg): 97/58/54
LV (s/x mmHg): 104/14
AV gradient (x, mmHg): 7.8
LEFT VENTRICULOGRAPHY: Not performed.
CORONARY ANGIOGRAPHY
Dominance: Right.
Left Main: Normal size, trifurcating vessel. The external vessel is densely calcified.
LAD: Normal size, densely calcified vessel. Giving rise to 3 diagonals there are luminal internal irregularities. In the proximal and mid vessel. The vessel is chronically totally occluded in its mid/distal portion, immediately after D3.
Ramus: Small size, diminutive vessel supplying the proximal/basal anterolateral wall.
Circumflex: Densely calcified, nondominant vessel. The vessel is chronically totally occluded in its proximal margin.
RCA: Large size, dominant vessel with a large posterolateral arcade. The vessel is extremely calcified with an 80-90% lesion in the ostium. There is a 70%, densely calcified lesion in the mid vessel immediately proximal to the crux.
INTERVENTION(S)
None.
Closure Device: Vascular band.
Radiation (mGy): 301
DAP (cm2.Gy): 14.8
Fluoroscopy time (minutes): 2.5
CONCLUSIONS
1. Right dominant circulation with dense calcification throughout the entire coronary tree, a CLAY STAIN MIXER of the mid/distal LAD with bridging collaterals to the apical vessel, a chronic total occlusion of the nondominant circumflex and its proximal margin
and an 80-90%, densely calcified lesion in the ostium of the RCA followed by a densely calcified 70% lesion in the mid vessel.
2. Mildly elevated filling pressures (LVEDP = 14 mmHg at 60.8 kg).
3. Stenotic and calcified right radial artery with some discomfort placing a 6 Latvian radial sheath.
RECOMMENDATIONS:
1. Expectant management after cardiac catheterization via right approach.
2. Limited weight bearing on the right wrist for one week.
3. Consultation with CT surgery regarding optimal revascularization strategy.
4. Echocardiogram ordered and pending.
5. Continue treatment for atrial fibrillation/flutter. Maintain heparin drip to avoid delay in revascularization if indicated.
Copy to: Beni Mars M.D.
Murtaza Bull DO, FACC, FACP
--- NOTE | 2025-07-17 14:15 | PTCARENOTE ---
Patient BP 68/40, HR 113, right hand pulse ox 76%, no pulse with doppler, right had cyanotic, cold and patient states he has decreased sensation. Radial site is oozing. SENIOR FORMULATION SCIENTIST & Hospitalist made aware. NSS infusing into left arm.
--- NOTE | 2025-07-17 14:18 | PTCARENOTE ---
Stroke alert called. Patient with thick, garbled speech and a new right facial droop. Patient states, 'Spouse at bedside and confirmed his speech is not his normal. CARDS DEMO SPECIALIST at bedside and assessing right radial site. Hospitalist made aware of
rapid/stroke alert.
[2025-07-17 14:21] LABS: Glucose - Point of Care 203 mg/dl (70-99)
--- NOTE | 2025-07-17 14:28 | W.PN.HOSP.TC ---
Today's Communication/Plan
-
see plan above
Assessment / Plan
Assessment / Plan
HPI: 75-year-old male with a past medical history of COPD, cigarette nicotine dependency, HH, GERD, CVA, HTN, HL, GIB/PUD, and diabetes presents with a 1 week history of dyspnea with activity, and orthopnea. reports that it has gotten worse in
the last 2 days. EMS found him to be satting 88% on room air. Upon arrival to the ER, he was found to have rapid atrial flutter. He received 2 boluses of IV diltiazem, and is currently on a diltiazem drip. He is now in controlled atrial flutter.
He denies chest pain, denies palpitations. No fever, no vomiting. No black or bloody stools. Does report left upper quadrant abdominal pain.
#New onset rapid atrial flutter
Recurrent
HR high today but asymptomatic
continue metoprolol to tartrate 25 mg twice a day
Started on Eliquis upon admission, changed to heparin drip for cardiac catheterization today
Discontinued Plavix
Will add IV lopressor *1 if BP permits
#Acute hypoxic respiratory insufficiency
#Acute heart failure with mildly reduced ejection fraction
Continue Lasix 40 mg IV twice daily. Off of Oxygen.
Resumed Farxiga, continue enalapril. Did not tolerate Entresto in the past because of blood pressure
Trend creatinine, trend daily weights
#Probable non-ST elevation myocardial infarction
#Coronary artery disease
Troponin peaked at 2.0
Status post aspirin 324 mg x 1
Started aspirin 81 mg daily today, IV heparin drip, echocardiogram requested, s/p cardiac catheterization -report pending
Some cyanosis of the right hand noted and feeling funny in the fingers. Capillary refill 5sec . Check Pulse via doppler.
RN advised to touch base with Cards
#History of peptic ulcer disease
#History of GI bleed
#Left upper quadrant abdominal pain
Continue Carafate, Protonix 40 mg twice daily
Monitor hemoglobin
#Diabetes
Diagnosed at 37 years old
Is on NPH insulin, 26 units in the morning, 16 units at night
Will give reduced dose of 22 units in the morning, 12 units at night
Carb controlled diet, sliding scale insulin
#Cigarette nicotine dependency
Smoking cessation counseling has been provided
Nicotine patch ordered
#Daily alcohol use
Drinks 2 beers a day
Monitor for withdrawal
#Urinary retention
Patient self catheterizes, continue finasteride
#Essential hypertension
Continue enalapril
#Hyperlipidemia
Continue statin
#Mild aortic stenosis
DVT prophylaxis�Eliquis
Full code
Updated at bedside
DW RN -Advised to call cards
Total time spent on today's encounter was 52 minutes which included time spent in counseling the patient/family regarding diagnosis and treatment plan as listed above, goals of care, and symptom management. Case was discussed with nursing staff,
specialists, and care coordinators/case management. All labs and imaging personally reviewed by me. Remainder the time spent in detailed review of previous records, lab data, imaging, and other medical provider documentation.
Portions of this chart may have been created with voice recognition software. Occasional wrong word or 'sound alike' substitutions may have occurred due to the inherent limitations of voice recognition software.
Anticipated Discharge: > 48 hours
Subjective/Interval History
-
Date of Service: July 17, 2025
Back from Tool Engine Lathe Set Up Operator. Voicing no specific complaints. Denies any palpitations. Heart rate of 130s and in A-fib. Denies any associated chest pain with that or shortness of breath. No dizziness.
No nausea vomiting.
Objective Data
-
Labs:
Laboratory Results
07/17/25 07/17/25 07/17/25
02:45 09:21 18:00
APTT 41.2 H 55.6 H Pending
Sodium 135
Potassium 4.0
Chloride 98
Carbon Dioxide 33 H
BUN 34 H
Creatinine 1.3
Glucose 184 H
Calcium 8.5
Vital Signs:
Vital Signs
Temp Pulse Resp BP Pulse Ox
97.6 F 73 18 88/54 96
07/17/25 14:00 07/17/25 14:00 07/17/25 14:00 07/17/25 14:00 07/17/25 14:00
I&O
07/16/25 07/17/25 07/18/25
06:59 06:59 06:59
Intake Total 600 / 600 1200 / 1200
Output Total 2820 / 2820 1280 / 1280
Balance -2220 / -2220 -80 / -80
Physical Exam
-
General: Comfortable
Respiratory: Clear to Auscultation and Non Labored Respirations; Negative Accessory Resp Muscle Use
Cardiac: S1/S2, Irregular Rhythm and Tachycardic
GI: Soft; Negative Nontender
Neuro: AO x 3
Psych: Calm; Negative Confused
Data Reviewed
-
Labs: Labs Reviewed by me
--- NOTE | 2025-07-17 14:39 | W.PN.UPDATE ---
Update Note
Progress Note Update
CTSP re: oozing radial cath site, weak doppler pulse, pulse Ox 76%, bp 83/76. Asked nurse to give post cath fluids and make sure the band is on properly. Prior to my arrival, RN then texted and albina that he had a new garbled speech, had done an NIH
scale and called a stroke alert.
On arrival, patient was in bed. He was AAOx3, answered all questions re: place, date, events. Speech noted to be garbled but understandable. Droop noted to right side of mouth. He was able to track my finger with his eyes, tongue is midline, smile
without trouble, MAEE 5/5. RUE with mild weakness likely related to R band as his strength was normal after instructed to ignore the band. He was informed of need for CT scan and he rolled his eyes. blood and plasma laboratory assistant staff informs me that patient had garbled
speech prior to cath today and was appropriately following commands.
Neurology arrived at bedside and report given to both physician and COMPUTER FORENSICS EXAMINER. Pt had been on heparin gtt prior to procedure and was given 5000u heparin intracath. Heparin gtt set to restart at 6pm tonight post procedure. Pt to be taken to CT scan per
stroke alert/Neuro.
Right radial band noted to be intact and properly applied. Palpable pulse noted, fingers warm. Blood noted around site but not currently oozing- his is likely from time of band placement. SBP mid 80s, and will replace with 1L NSS.
Continued stroke workup per Neuro.
Dr. Bull aware of above.
--- NOTE | 2025-07-17 14:54 | W.PN.UPDATE ---
Update Note
Progress Note Update
Stroke alert was called last patient developed sudden onset of right facial droop, slurred speech.
He is alert and oriented. Denies headache. Feels bit weak in the right hand.
Remains in A-fib at 130. Systolic blood pressure noted to be on the lower side 88/54.
Subtle right facial asymmetry noted which is new.
No obvious expressive aphasia or receptive aphasia but his speech is garbled.
Right distal strength 4+/5 rest of the limbs 5/5
Neurology team at the bedside.
Stat CT requested. Stat CT angiogram of the head and neck requested. Transfer to IMU. updated at bedside.
--- NOTE | 2025-07-17 15:16 | CON.NEURO4 ---
Addendum entered and electronically signed by Ernesto Callejas MD 07/17/25 16:40:
The CT of the head did not show any acute intracranial abnormality.
The CTA of the head and neck did not show large vessel occlusion dissection or aneurysms. The proximal internal carotid arteries showed a 50 to 69% luminal narrowing bilaterally.
The plan is to get a carotid ultrasound.
The patient is going to be on a stroke pathway.
He is likely to be restarted on heparin gtt at 6 PM tonight as per cardiology recommendation. Due to atrial fibrillation, it is recommended that the patient is started on long-term anticoagulation with a DOAC, when it is okay with cardiology.
Continue atorvastatin 80 mg daily.
The patient likely had a stroke involving the left hemisphere secondary to atrial fibrillation.
The patient's case was discussed with Dr. Vivek Cleaning and also the cardiology team.
Original Note:
Consultation - Neurology 4
-
CONSULTING PHYSICIAN: Ernesto Callejas MD
REFERRING PHYSICIAN: Vivek Cleaning MD
DICTATED BY: Ernesto Callejas MD
DATE/TIME OF REQUEST: 07/17/2025
DATE/TIME OF CONSULTATION: 07/17/2025
Reason for Consultation: Speech difficulty and right-sided facial droop
Assessment and Plan:
The patient is a 75 years old male who developed sudden onset of right-sided facial droop and slurred speech, which was noted when he came back to the room after the heart catheterization,and a stroke alert was called, however, the patient was not a
candidate for TNK as he was on therapeutic dose of intravenous heparin prior to the heart catheterization. The NIH stroke scale was 3. The patient was found to be in atrial fibrillation.
The CT of the head did not show any acute intracranial abnormality.
The CTA of the head and neck did not show large vessel occlusion dissection or aneurysms. The proximal internal carotid arteries showed a 50 to 69% luminal narrowing bilaterally.
The plan is to get a carotid ultrasound.
The patient is going to be on a stroke pathway.
He is likely to be restarted on heparin gtt at 6 PM tonight as per cardiology recommendation. Due to atrial fibrillation, it is recommended that the patient is started on long-term anticoagulation with a DOAC, when it is okay with cardiology.
The patient's case was discussed with Dr. Vivek Cleaning and also the cardiology team.
Continue atorvastatin 80 mg daily.
History of Present Illness:
The patient is a 75 years old male who developed sudden onset of right sided facial droop and slurred speech which was noted when he came back to the room after the heart catheterization, however, the patient was not a candidate for TNK as he was on
therapeutic dose of intravenous heparin prior to the heart catheterization. The NIH stroke scale was 3. The patient was found to be in atrial fibrillation. The patient's case was discussed with Dr. Vivek Cleaning and also the cardiology team.
Past Medical History: COPD, cigarette nicotine dependency, CVA, hypertension, hyperlipidemia, peptic ulcer disease and diabetes.
Review of Systems: The 10 point review of systems was negative aside from as given the above history of present illness.
Neurologic Examination:
The patient is alert and oriented x 3,
The patient has mild expressive aphasia,
The cranial nerves II to XII are grossly intact aside from a right-sided facial droop,
The motor strength is grossly 5 out of 5 bilaterally,
Sensory examination is grossly normal,
On cerebellar examination there was no limb ataxia seen.
Vital Signs and Labs
-
Vital Signs and Labs:
Vital Signs
Temp Pulse Resp BP Pulse Ox
36.4 C 73 18 88/54 96
07/17/25 14:00 07/17/25 14:00 07/17/25 14:00 07/17/25 14:00 07/17/25 14:00
Lab Results
07/16/25 07:38
07/17/25 02:45
APTT 55.6 Sec (23.4-35.0) H 07/17/25 09:21
Sodium 135 mmol/L (135-145) 07/17/25 02:45
Potassium 4.0 mmol/L (3.5-5.1) 07/17/25 02:45
BUN 34 mg/dl (9-20) H 07/17/25 02:45
Glucose 184 mg/dl (70-99) H 07/17/25 02:45
Calcium 8.5 mg/dl (8.4-10.2) 07/17/25 02:45
Phosphorus 4.9 mg/dl (2.5-4.5) H 07/16/25 07:38
Ypr-Z-Fmxplykrlff Pept 3770 pg/ml 07/15/25 06:50
LDL Cholesterol, Calc 56 mg/dl 07/16/25 07:38
Medications
-
Active Medications
Generic Name Dose Route Start Last Admin
Trade Name Freq PRN Reason Stop Dose Admin
Acetaminophen 650 mg 07/15/25 10:02
Acetaminophen 325 Mg Tablet PO 08/12/25 10:01
Q4HPRN PRN
pain or fever
Aspirin 81 mg 07/17/25 08:00 07/17/25 09:13
Aspirin 81 Mg (Enteric Coated) Tablet PO 08/14/25 07:59 81 mg
DAILY TRAN Administration
Atorvastatin Calcium 80 mg 07/15/25 18:00 07/16/25 16:35
Atorvastatin (Lipitor) 80 Mg Tablet PO 08/12/25 17:59 80 mg
QPM TRAN Administration
Dapagliflozin 10 mg 07/15/25 10:15 07/16/25 07:55
Dapagliflozin (Farxiga) 10 Mg Tablet PO 08/12/25 10:14 10 mg
DAILY TRAN Administration
Dextrose 12.5 grams 07/15/25 10:02
Dextrose 50% (0.5 Grams/Ml) 50 Ml Syringe IV 08/12/25 10:01
[id number] PRN
hypoglycemia
Protocol
Ezetimibe 10 mg 07/16/25 08:00 07/17/25 09:13
Ezetimibe (Zetia) 10 Mg Tablet PO 08/13/25 07:59 10 mg
DAILY TRAN Administration
Enalapril Maleate 5 mg 07/15/25 20:00 07/17/25 09:12
Enalapril 5 Mg Tablet PO 08/12/25 19:59 5 mg
BID TRAN Administration
Finasteride 5 mg 07/15/25 11:00 07/17/25 09:13
Finasteride 5 Mg Tablet PO 08/12/25 10:59 5 mg
DAILY TRAN Administration
Furosemide 40 mg 07/15/25 16:00 07/16/25 15:16
Furosemide 40 Mg (10 Mg/Ml) 4 Ml Vial IV 08/12/25 15:59 40 mg
BID AT 0800,1600 TRAN Administration
Glucagon 1 mg 07/15/25 10:02
Glucagon 1 Mg Vial IM 08/12/25 10:01
PRN PRN
hypoglycemia
Protocol
Heparin Sodium 25,000 units in 250 mls @ 0 mls/hr 07/16/25 20:00 07/16/25 20:12
Heparin 10308 Units/250 Ml IV 250 mls
On Hold: 07/17/25 13:42 PER PROTOCOL TRAN Administration
Resume: 07/17/25 18:00 Protocol
Comment: HOLD post cath- Per Protocol
resume at 6pm at last prior
rate/per protocol
Sodium Chloride 1,000 mls @ 120 mls/hr 07/17/25 15:00
Nss IV 07/17/25 23:19
.Q8H20M TRAN
Sodium Chloride 500 mls @ 500 mls/hr 07/17/25 15:01
Nss IV 07/17/25 16:00
BOLUS ONE
Insulin Aspart 0 units 07/17/25 06:00 07/17/25 12:23
Insulin Aspart Moderate Resistance 300 Units/3 Ml Pen.Injctr SC 08/14/25 05:59 Not Given
Q6 TRAN
Protocol
Insulin Human NPH 12 units 07/15/25 22:00 07/16/25 22:09
Insulin Nph (100 Units/Ml) 3 Ml Kwikpen SC 08/12/25 21:59 Not Given
On Hold: 07/16/25 22:01 HS TRAN
Resume: 07/17/25 22:00
Insulin Human NPH 22 units 07/16/25 13:01 07/17/25 09:14
Insulin Nph (100 Units/Ml) 3 Ml Kwikpen SC 08/13/25 10:14 Not Given
DAILY TRAN
Metoprolol Tartrate 50 mg 07/17/25 08:00 07/17/25 09:12
Metoprolol 50 Mg Regular Release Tablet PO 08/14/25 07:59 50 mg
BID TRAN Administration
Nicotine 14 mg 07/15/25 14:00 07/17/25 09:13
Nicotine 14 Mg Patch TRANSDERM 08/12/25 13:59 Not Given
DAILY TRAN
Ondansetron HCl 4 mg 07/15/25 10:02
Ondansetron 4 Mg/2 Ml Vial IV 08/12/25 10:01
Q6HPRN PRN
NAUSEA/VOMITING
Pantoprazole Sodium 40 mg 07/15/25 20:00 07/17/25 09:14
Pantoprazole 40 Mg Delayed Release Tablet PO 08/12/25 19:59 40 mg
BID TRAN Administration
Sodium Chloride 0 flush 07/15/25 10:00
Sodium Chloride 0.9% (Flush) Syringe IV 08/12/25 09:59
PER PROTOCOL TRAN
Sucralfate 1 gm 07/15/25 11:30 07/17/25 09:15
Sucralfate (Carafate) 1 Gm/10 Ml Cup PO 08/12/25 11:29 Not Given
ACHS TRAN
Tamsulosin HCl 0.4 mg 07/16/25 08:00 07/16/25 07:56
Tamsulosin 0.4 Mg Capsule PO 08/13/25 07:59 0.4 mg
DAILY TRAN Administration
Home Medications
�Medication �Instructions �Recorded
clopidogrel 75 mg tablet 75 mg PO DAILY Blood Clot 05/26/23
Prevention/Tx
atorvastatin 80 mg tablet 80 mg PO QPM High Cholesterol 08/19/23
ezetimibe 10 mg tablet 10 mg PO DAILY High Cholesterol 01/21/24
tamsulosin 0.4 mg capsule 0.4 mg PO DAILY Urinary Issue 11/16/24
dapagliflozin propanediol 10 mg 10 mg PO DAILY 03/02/25
tablet (Farxiga)
Held on 06/18/25.
Instructions: Resume on
07/05/25. Discuss with your
outpatient physician if and
when you should resume this
medication, based on your
renal function and any other
factors.
enalapril maleate 5 mg tablet 5 mg PO BID Blood Pressure 03/02/25
finasteride 5 mg tablet 5 mg PO DAILY BPH 03/02/25
insulin NPH isoph U-100 human 100 16 unit SC QHS Diabetes 03/02/25
unit/mL subcutaneous suspension
(Humulin N NPH U-100 Insulin
(isophane susp))
insulin NPH isoph U-100 human 100 26 unit SC DAILY Diabetes 03/02/25
unit/mL subcutaneous suspension
(Humulin N NPH U-100 Insulin
(isophane susp))
nifedipine 30 mg tablet,extended 30 mg PO DAILY #30 tabs 06/18/25
release
pantoprazole 40 mg tablet,delayed See Rx Instructions .Route 06/18/25
release .COMPLEX #90 tabs
sucralfate 100 mg/mL oral 1 g (10 mL) PO ACHS #1,000 mL 06/18/25
suspension
--- NOTE | 2025-07-17 15:20 | CON.NEURO4 ---
Consultation - Neurology 4
-
CONSULTING PHYSICIAN:
REFERRING PHYSICIAN:
DICTATED BY:
DATE/TIME OF REQUEST:
DATE/TIME OF CONSULTATION:
Reason for Consultation:
History of Present Illness:
This is a (age) year old (left/right) handed (male/female) who has presented to the hospital with (chief complaint). Patient's symptoms began (time) ago, when (describe).
- For stroke patients please mention last known well time.
- Describe associated symptoms, if any. Describe any treatment taken and intervention made.
- Describe the current status of symptoms.
- Describe if patient is compliant with current medications - name the medications and follow up with the physician.
- Describe if patient has had any similar symptoms in the past.
- For stroke patients, mention if patient has had a prior stroke and if there are any residual deficits.
- If the history has been obtained from sources other than the patient, mention 'this history has been contributed to by'
and name the source: family/medical record/retirement/caregiver/nursing ect.
Past Medical History:
Surgical History:
Family History:
Social History:
Allergies:
Home Medications:
Review of Symptoms:
Patient denies any fever, headache, chest pain, shortness of breath, GI or symptoms.
�Per the HPI.�All systems are reviewed negative except above.
�- Remove any of these problems that patient may have complained about in the HPI.
�- If patient is unresponsive, intubated or demented, say 'Per the HPI. I am unable to obtain a complete review of systems�because of patient's inability to provide history.'
Vital Signs:
The patient has a blood pressure of ( ) , heart rate ( ) , temperature ( ) , respiratory rate ( ) and a pulse ox of ( ) on
(room air / oxygen by nasal cannula / ventilator).
Physical Exam:
The patient is afebrile, heart sounds S1 and S2 are (regular / irregular), and chest is clear to auscultation bilaterally.
- If not clear, describe.
NIH Stroke Scale (if applicable):
I performed the NIH stroke scale on the patient on (date & time). The patient scored ( ) points on the NIH stroke scale assessment, which were assigned as follows:
Neurologic Examination:
The patient is awake, alert and oriented x 3. (He/She) is able to follow commands and answer questions appropriately. There is no aphasia or dysarthria. On cranial nerve assessment, pupils are 3 mm bilateral, round and reactive to light and
accommodation. Visual chan are full. Extraocular movements are intact. Facial sensations are intact and bilaterally symmetrical, there is no facial asymmetry. Hearing is intact bilaterally to normal conversation volume. Tongue palate and uvula
are midline. Sternocleidomastoid strengths are full bilaterally. Motor strengths are 5/5 bilateral upper and lower extremities on medical research [place] scale. There is no drift or involuntary movement noted. Deep tendon reflexes are 2+ bilateral
upper and lower extremities and Babinski is absent bilaterally. Sensations of pain, touch, temperature and vibration are intact and bilaterally symmetrical. There was no extinction noted on double simultaneous stimulation. Coordination is intact by
finger to nose bilaterally.
Lab Results:
Neuro Imaging:
Impression:
(Mr. / MsBrandon) RYAN HIRSCH is a 75 year old M who has presented to the hospital with (symptoms/chief complaint).
Differentials for the patient's presentation include:
1.
2.
3.
4.
Patient has the following risk factors for their symptoms:
IV Tenecteplase/IAT candidacy
Recommendations:
1.
2.
3.
Discussed patient care with:
--- NOTE | 2025-07-17 15:35 | CON.NEURO4 ---
Consultation - Neurology 4
-
CONSULTING PHYSICIAN: Ernesto Callejas MD
REFERRING PHYSICIAN: Vivek Cleaning MD
DICTATED BY: Ernesto Callejas MD
DATE/TIME OF REQUEST: 07/17/2025
DATE/TIME OF CONSULTATION: 07/17/2025
Reason for Consultation: Speech difficulty and right-sided facial weakness.
History of Present Illness:
This is a (age) year old (left/right) handed (male/female) who has presented to the hospital with (chief complaint). Patient's symptoms began (time) ago, when (describe).
- For stroke patients please mention last known well time.
- Describe associated symptoms, if any. Describe any treatment taken and intervention made.
- Describe the current status of symptoms.
- Describe if patient is compliant with current medications - name the medications and follow up with the physician.
- Describe if patient has had any similar symptoms in the past.
- For stroke patients, mention if patient has had a prior stroke and if there are any residual deficits.
- If the history has been obtained from sources other than the patient, mention 'this history has been contributed to by'
and name the source: family/medical record/senior living/caregiver/nursing ect.
Past Medical History:
Surgical History:
Family History:
Social History:
Allergies:
Home Medications:
Review of Symptoms:
Patient denies any fever, headache, chest pain, shortness of breath, GI or symptoms.
�Per the HPI.�All systems are reviewed negative except above.
�- Remove any of these problems that patient may have complained about in the HPI.
�- If patient is unresponsive, intubated or demented, say 'Per the HPI. I am unable to obtain a complete review of systems�because of patient's inability to provide history.'
Vital Signs:
The patient has a blood pressure of ( ) , heart rate ( ) , temperature ( ) , respiratory rate ( ) and a pulse ox of ( ) on
(room air / oxygen by nasal cannula / ventilator).
Physical Exam:
The patient is afebrile, heart sounds S1 and S2 are (regular / irregular), and chest is clear to auscultation bilaterally.
- If not clear, describe.
NIH Stroke Scale (if applicable):
I performed the NIH stroke scale on the patient on (date & time). The patient scored ( ) points on the NIH stroke scale assessment, which were assigned as follows:
Neurologic Examination:
The patient is awake, alert and oriented x 3. (He/She) is able to follow commands and answer questions appropriately. There is no aphasia or dysarthria. On cranial nerve assessment, pupils are 3 mm bilateral, round and reactive to light and
accommodation. Visual chan are full. Extraocular movements are intact. Facial sensations are intact and bilaterally symmetrical, there is no facial asymmetry. Hearing is intact bilaterally to normal conversation volume. Tongue palate and uvula
are midline. Sternocleidomastoid strengths are full bilaterally. Motor strengths are 5/5 bilateral upper and lower extremities on medical research [place] scale. There is no drift or involuntary movement noted. Deep tendon reflexes are 2+ bilateral
upper and lower extremities and Babinski is absent bilaterally. Sensations of pain, touch, temperature and vibration are intact and bilaterally symmetrical. There was no extinction noted on double simultaneous stimulation. Coordination is intact by
finger to nose bilaterally.
Lab Results:
Neuro Imaging:
Impression:
(Mr. / MsBrandon) RYAN HIRSCH is a 75 year old M who has presented to the hospital with (symptoms/chief complaint).
Differentials for the patient's presentation include:
1.
2.
3.
4.
Patient has the following risk factors for their symptoms:
IV Tenecteplase/IAT candidacy
Recommendations:
1.
2.
3.
Discussed patient care with:
--- NOTE | 2025-07-17 15:48 | PTCARENOTE ---
Patient transferred to IMU, verbal report given to Hillary RODRIGUEZ.
[2025-07-17] MEDS: FARXIGA PO (16:08)
[2025-07-17] MEDS: LASIX IV ×2 (16:08→18:08)
[2025-07-17] MEDS: NSS 500 IV ×2 (16:09→20:22)
--- NOTE | 2025-07-17 16:36 | CM ---
Prior to rapid spoke with patient and in room .
Pt requested [facility] and dc.Amelia S aware of referral.
will drive him home
PLAN Home with [facility]
--- NOTE | 2025-07-17 16:55 | RESPNOTE ---
Respiratory: patient unable to currently perform Bedside PFT, recent stroke alert. RN made aware. Will attempt tomorrow.
[2025-07-17 17:53] LABS: Glucose - Point of Care 196 mg/dl (70-99)
[2025-07-17] MEDS: CARAFATE SUSPENSION 1 GM PO (18:08)
[2025-07-17] MEDS: LIPITOR 80 MG PO (18:08)
[2025-07-17] MEDS: FLOMAX 0.4 MG PO (18:14)
--- NOTE | 2025-07-17 19:51 | W.PN.UPDATE ---
Update Note
Progress Note Update
at 0742 pm called at bedside as the patient had un witnessed fall and hypotensive with bp 72/49.
On assessment patient tis alert and oriented at baseline. No neuro changes. Denies hitting his head. Patient had one episode of vomiting during assessment time.
Cardiac cath report noted with
1. Right dominant circulation with dense calcification throughout the entire coronary tree, a ADDICTION THERAPIST of the mid/distal LAD with bridging collaterals to the apical vessel, a chronic total occlusion of the nondominant circumflex and its proximal margin
and an 80-90%, densely calcified lesion in the ostium of the RCA followed by a densely calcified 70% lesion in the mid vessel.
2. Mildly elevated filling pressures (LVEDP = 14 mmHg at 60.8 kg).
3. Stenotic and calcified right radial artery with some discomfort placing a 6 Macanese radial sheath.
-Will check hgb level stat, will start with IVF resuscitation for hypotension and if not effective plan to start levophed. Patient with chf but no edema, clear lung sound, no sob or cp. discussed with nursing.
-Neuro check per protocol for unwitnessed fall and will send the patient to head CT when the bp stable as the patient was on heparin drip/ unwitnessed fall.
-Ekg done
- Enterprise Systems Engineer conveyor belt repairer is okay to hold heparin and starting Levophed if IVF not effective.
-NPO for now.
-Fluids not effective bp still low with low map. Total IVF is 750cc. levophed started and maxed to 8mcg and will require high dose. Will transfer patient to ICU for med administration. Discussed the case with the hospitalist.
-Not able to reach to the called multiple times with no answer.
--- NOTE | 2025-07-17 19:58 | PTCARENOTE ---
day shift note. recieved pt from 4th floor after stroke alert. arrived to floor with icu nurses. see nih. pt presenting with slight facial droop and slurred but intelligible speech. pt fully alert and oriented. atrial flutter on monitor. sats upper
90s on room air. pts TR band noted to have oozing under dressing. TR band removed by icu nurse and began bleeding at site. manual pressure applied and research laboratory manager staff called to evaluate. TR band replaced at that time and per DR Bull protocol for
removing TR band restarted at 1600. Tr band removed at 1830 . bp checked in both arms per order with slight difference in BP. pt had both lasix and iv fluids ordered and per discussion with dr Cleaning lasix not given d/t prior low bps but iv fluids
stopped as pt normotensive and drinkin gfluids at the time. pt voided 550 mls yellow urine in urinal. ate most of dinner tray. report given to oncoming rn and plan was to resume pts heparin . during shift report monitor alarmed with no readings.
staff entered room to find pt sitting on floor stating that he took off monitor and went into bathroom by himself. pt pale. denied hitting head. oriented but speech seeming slightly more slurred. assisted back to bed. monitors replaced. pt
hypotensive. salt maker RN notified house Neuropsychology Director to evaluate patient and deferred starting heparin drip until seen by EMS INSTRUCTOR.
[2025-07-17] MEDS: ZOFRAN 4 MG IV (20:09)
[2025-07-17] MEDS: NSS 250 IV (20:15)
[2025-07-17 20:20] LABS: Hematocrit 37.6 % (39.0-52.0); Hemoglobin 12.6 g/dL (13.0-18.0); Mean Corp Hgb Conc. 33.5 g/dL (33.0-37.0); Mean Corpuscular Volume 92.4 fL (80.0-94.0); Platelet Count 243 10^3/uL (130-400); Red Cell Dist. Width 13.3 % (11.5-14.5)
[2025-07-17] MEDS: VASOTEC PO (21:02)
[2025-07-17] MEDS: LOPRESSOR PO (21:02)
[2025-07-17] MEDS: PROTONIX PO (21:02)
[2025-07-17] MEDS: LEVOPHED 250 IV (21:03)
--- NOTE | 2025-07-17 21:41 | FALL ---
Description of Fall: During change of shift, pt came off monitor. Pt on floor, sitting up, with back against the wall when this RN entered the room. Pt stated he felt dizzy and fell on his bottom. Denies hitting head. When back in bed, BP
checked and hypotensive.
Injuries Noted: None visible.
Action Taken: CLINICAL TRIAL COORDINATOR to bedside. IVF, Levo, EKG, CBC, and Head CT ordered. Head CT to be obtained when pt BP stable.
Name of Provider Notified: Austin Dueñas
[2025-07-17 22:09] LABS: Glucose - Point of Care 594 mg/dl (70-99)
[2025-07-17] MEDS: COMPAZINE 5 MG IV (22:24)
[2025-07-17 22:44] LABS: Glucose 367 mg/dl (70-99)
[2025-07-17] MEDS: NOVOLOG FLEXPEN 5 UNITS SC (22:58)
[2025-07-17] MEDS: HUMULIN N KWIKPEN 12 UNITS SC (22:58)
[2025-07-17 23:39] LABS: Glucose - Point of Care 370 mg/dl (70-99)
[2025-07-17 23:51] LABS: Hematocrit 39.6 % (39.0-52.0); Hemoglobin 12.6 g/dL (13.0-18.0); Venous Blood Gas B.E. -14.9 mmol/L (-4 to +4); Venous Blood Gas O2 Sat % 67.4 %
[2025-07-18] VITALS (102 sets, daily range): BP systolic 78–139; BP diastolic 45–115; BMI 20.1; BMI 19.9
--- NOTE | 2025-07-18 00:03 | PTCARENOTE ---
Assumed care of patient. Brought patient to CT scan and up to ICU room. Connected to monitor, CHG bath completed, weight obtained. Levo @ 8 to maintain MAP > 65. Patient is alert and oriented x3, follows commands, afebrile. Patient complaints of
some nausea but no vomiting. Patient is in A fib with rates from 110-130. Blood pressure goal MAP > 65 on levo @ 8. Pulses are palpable. Abdomen is soft and nontender. Bowel sounds present. Patient is continent. IV sites are c/d/i. Blanchable
redness on patient's sacrum.
[2025-07-18 00:08] LABS: APTT 23.4 Sec (23.4-35.0); INR 1.30; PT 16.4 Sec (11.4-14.6)
[2025-07-18 00:19] LABS: Blood Urea Nitrogen 46 mg/dl (9-20); Calcium 8.6 mg/dl (8.4-10.2); Carbon Dioxide 11 mmol/L (22-30); Chloride 95 mmol/L (98-107); Estimated Creatinine Clearance 32 ml/min; Glucose 441 mg/dl (70-99); Magnesium 1.9 mg/dl (1.6-2.3); Potassium 5.0 mmol/L (3.5-5.1); Sodium 128 mmol/L (135-145); eGFR 41.52
[2025-07-18 00:25] LABS: Albumin 3.8 g/dl (3.5-5.0)
[2025-07-18] MEDS: NOVOLOG FLEXPEN-MODERATE RESISTANCE SC (00:29)
[2025-07-18] MEDS: NOVOLIN R INSULIN INFUSION 100 IV (00:43)
[2025-07-18] MEDS: NSS with KCL 20 MEQ 1000 IV (00:47)
--- NOTE | 2025-07-18 01:00 | PTCARENOTE ---
Patient started on insulin drip and IVF per DKA protocol. Heparin drip restarted per order.
--- NOTE | 2025-07-18 01:00 | W.PN.UPDATE ---
Addendum entered and electronically signed by DORY Patel 07/18/25 05:39:
0300- Now patient is rapid Aflutter, changed levophed to janell gtt. If no improvement after transition will start cardizem gtt.
Original Note:
Update Note
Progress Note Update
07/17/25
1295- Patient transferred from IMU for worsening hypotension. Patient had fallen earlier in the evening, unwitnessed fall, patient had attempted to ambulate, denies hitting his head, but did have some vomiting episodes and hypotension afterwards.
He was unable to go for Ctscan due to worsening hypotension, an IVF bolus was given and levophed gtt initiated. Now with worsening hypotension and levophed gtt needs >8mcg, he is transferred to ICU.
Prior to transfer to ICU, patient was immediately taken down for CTscan fo the head to r/o head bleed vs other intracranial pathologies. Heparin gtt has been on hold since sometime after the fall. Patient's neurological examination slight right
facial droop and slight dysarthria. Earlier today stroke alert was called for these symptoms, Ctscan was done at that time and neurology consulted. Thought was possibly embolic left hemisphere, secondary to atrial fibrillation.
Patient continued with nausea, small amounts of vomiting, blood sugar noted >500 (noted around 10pm) and subcutaneous insulin and NPH given. Labs drawn blood glucose at midnight 441, ph on VBG 7.12, CO2 11, anion gap 22. DKA protocol started
insulin gtt initiated and IVF ordered per protocol. Continue to follow BMP and serial potassium q4H. PRN Zofran for nausea/vomiting. Patient has no fever. Likely hypotension secondary to low bicarb and DKA.
Ctscan of the head w/o contrast negative for acute intracranial hemorrhage, mass effect or midline shift. Moderate global volume loss and chronic small vessel ischemia white matter change. Old lacunar infarcts in the bilateral basal ganglia and
left thalamus.
0045- Lab findings, negative head Ctscan results, and case discussed with clinical radiologist Dr. Benjamin Rodriguez: agreed with initiating DKA protocol, resume heparin gtt at 12u/kg/hr per Cardiac Tx/Acute Coronary protocol, no bolus of heparin and start
gtt at initiation rate. Orders reviewed with RN. Hopefully with glucose correction and improvement in bicarb, Levophed gtt will be able to be titrated down. Patient currently in afib heart rate 110s-120s, may consider amiodarone gtt, will attempt
to titrate levophed gtt down first.
[2025-07-18] MEDS: HEPARIN 25000 UNITS/250 ML IV (01:05)
[2025-07-18] MEDS: MAGNESIUM SULFATE 102 GRAMS IV (01:10)
[2025-07-18 01:40] LABS: Urine Character Cloudy (Clear)
[2025-07-18 01:48] LABS: Urine Squamous Cell 0-2 /LPF (Few)
[2025-07-18 01:49] LABS: Urine Red Blood Cell 0-2 /HPF (0-2); Urine White Cell >100 /HPF (0-5)
[2025-07-18 02:09] LABS: Glucose - Point of Care 336 mg/dl (70-99)
--- NOTE | 2025-07-18 02:30 | PTCARENOTE ---
INFORMATION SYSTEMS OPERATOR aware of HR, patient's levo drip changed to Vidal drip per order, for goal systolic of > 90.
[2025-07-18] MEDS: NEO-SYNEPHRINE 250 IV (02:32)
[2025-07-18 03:14] LABS: Glucose - Point of Care 295 mg/dl (70-99)
--- NOTE | 2025-07-18 04:00 | PTCARENOTE ---
Patient added on diltiazem for HR control with goal of 80-100. Patient states that he objectively feels better. Continuing to check Q1 blood sugars, blood sugar < 250 so IV fluids changed to dextrose containing fluids, on Vidal for BP, and heparin.
EKG completed No other changes in assessment.
[2025-07-18 04:17] LABS: Glucose - Point of Care 237 mg/dl (70-99)
[2025-07-18 04:20] LABS: Hematocrit 38.0 % (39.0-52.0); Hemoglobin 12.4 g/dL (13.0-18.0); Mean Corp Hgb Conc. 32.6 g/dL (33.0-37.0); Mean Corpuscular Volume 94.3 fL (80.0-94.0); Platelet Count 272 10^3/uL (130-400); Red Cell Dist. Width 13.2 % (11.5-14.5)
[2025-07-18] MEDS: D5/0.45%NSS with KCL 20 MEQ 1000 IV ×2 (04:27→11:28)
[2025-07-18 04:47] LABS: ALT (SGPT) 25 U/L (0-50); AST (SGOT) 24 U/L (17-59); Albumin 3.5 g/dl (3.5-5.0); Alkaline Phosphatase 61 U/L (38-126); Amylase 46 U/L (30-110); Blood Urea Nitrogen 49 mg/dl (9-20); Calcium 8.7 mg/dl (8.4-10.2); Carbon Dioxide 21 mmol/L (22-30); Chloride 102 mmol/L (98-107); Estimated Creatinine Clearance 35 ml/min; Glucose 245 mg/dl (70-99); Magnesium 2.3 mg/dl (1.6-2.3); Potassium 3.7 mmol/L (3.5-5.1); Sodium 133 mmol/L (135-145); Total Protein 6.0 g/dl (6.3-8.2); eGFR 44.65
[2025-07-18 04:58] LABS: Troponin I 0.934 ng/ml
[2025-07-18] MEDS: KCL 270 MEQ IV (05:18)
[2025-07-18 06:02] LABS: Glucose - Point of Care 354 mg/dl (70-99)
[2025-07-18 07:07] LABS: Glucose - Point of Care 233 mg/dl (70-99)
[2025-07-18 08:00] LABS: Glucose - Point of Care 183 mg/dl (70-99)
[2025-07-18 08:29] LABS: APTT 37.9 Sec (23.4-35.0)
--- NOTE | 2025-07-18 08:33 | PTCARENOTE ---
Patient denies any sob or cp. Reports some dizziness while in bed. Denies any nausea, no vomiting. NIHS 2, A. Flutter on the monitor.
--- NOTE | 2025-07-18 08:41 | CON.INTV ---
Addendum entered and electronically signed by Dewayne Babcock MD 07/18/25 13:16:
Patient seen and examined independently by myself. Resident note reviewed below. Agree with assessment and plan.
History obtained from the patient and also at the bedside. Patient is a 75-year-old male with complex medical history, cardiomyopathy, diabetes, peptic ulcer disease presenting with new onset atrial flutter admitted 07/15. He was started on
heparin therapy, rate control, treated for heart failure. He underwent cardiac catheterization which revealed multivessel coronary disease. Later that day on 07/17 he developed mental status changes, neurological findings. He was found to have
possible new facial droop. Neurology was consulted and initial imaging did not reveal any acute stroke but carotid disease was noted. Patient subsequently had a fall later in the PM, unwitnessed, followed by hypotension, emesis. Repeat imaging
was negative for any acute findings. Patient developed acidemia, elevated lactate, DKA started on insulin drip. Marginal blood pressure noted, patient transferred to ICU for further management 07/17/2025
Presently, patient is without complaints. He is somewhat sarcastic in his responses, answering a question by asking a question. He is on room air comfortable appearing.
at bedside states that patient is not his 'usual funny self'
Social history, family history, review systems, medications reviewed and as below
Patient denies any allergies.
Physical exam
Systolic pressure ranges between 80s and 130s, heart rate 120s to 140s, now in the 80s to 90s, atrial flutter
93% on room air
Comfortable appearing, no use of accessory muscles. He does have a mild right facial droop. Chest exam with mild crackles at the base, otherwise no wheeze. Cardiac exam irregular rhythm, no obvious murmurs.
Abdominal exam soft, nontender, nondistended
Extremities no clubbing cyanosis, trace edema
Neurologically he moves all extremities
Data reviewed
Blood sugars as high as 596, now improved. Creatinine increased to 1.6 from 1.1
Cardiac catheterization with multivessel coronary disease, chronic calcified lesions
Chest x-ray per my review suggest mild heart failure
Echocardiogram with EF 40%, New global hypokinesis, PA pressure 29
CT chest 07/17/2025 with retained secretions in the trachea, right basilar interstitial changes, mild pleural effusion
A/P
Patient with complex clinical history, multisystem organ dysfunction
Salient features include mental status changes, fall, questionable neurological findings with new onset atrial flutter
Heparin has been resumed
Imaging without any acute findings. Neurology is following
Patient developed tachycardia overnight, improved with Cardizem drip
Given findings on cardiac catheterization, will be important for rate control
Amiodarone will be started
Pressors will continue, currently on phenylephrine
Lasix currently on hold
Will double concentrate titrate pressors
PICC line
Creatinine increased to 1.6
Would recommend Guzman catheter placement
Patient received contrast for brain imaging
Follow urine output and creatinine
Hold nephrotoxic drugs
Patient continues to smoke and drink
Per , drinks 6 drinks a day
Watch for withdrawal
Patient remains on insulin drip, will transition off
He does have a history of DKA
Follow-up blood sugars
Diabetic nurse practitioner input
Eventual CT surgery evaluation for coronary disease
Reviewed with critical care nursing, respiratory care, pharmacy
Reviewed with patient and at bedside
Will follow
TCCT 40 min
Original Note:
Consultation
Consultation Request
Date/Time Consultation Requested: 07/17/25 23:51
Date/Time Consultation Performed: 07/18/25: 6:40
Requesting Provider: Radha Giordano CRNP
Performing Provider: Dewayne Babcock MD
Reason for Consultation: DKA, Hypotension
Medical History
-
History of Present Illness:
This is a 75 y/o male with pmhx of COPD, essential hypertension, ischemic cardiomyopathy vs heart failure with mildly reduced EF (40-45% initially, most recently 55% per 10/2023 Echo), non-insulin depdendent diabetes mellitus, peptic ulcer disease
who presented to the ED on 07/15/2025 with 1 week of shortness of breath that had worsened two days prior to presentation. EMS reported he was saturating at 88% on room air.
Upon arrival in the ED he was found to have new rapid atrial flutter. Chest X-ray at that time showed right basilar opacity with adjacent trace effusion. Cardiology was consulted, and he was started on IV diltiazem and Heparin. He was also started
on IV Lasix for acute heart failure exacerbation. On 07/16 he was made NPO with plan for catheterization the following day. Anticoagulation was held for the procedure. He underwent a left heart catheterization on 07/17/2025 which found a chronic
total occlusion of the non dominant circumflex and proximal margin and an 80-90% densely calcified lesion in the osmium of the RCA, followed by a densely calcified 70% lesion in the mid vessel.
Later that same day nursing staff reported he had new garbled speech, and a stroke alert was called. Facial droop was noted to the right side of the mouth, but he was found to be appropriately following commands. Neurology was consulted. CT of the
head showed no acute intracranial abnormalities. CTA Head/Neck showed proximal internal carotid artery narrowing 50-69% bilaterally. Anticoagulation was resumed Later that evening around 7:40PM, he had an unwitnessed fall and became hypotensive with
BP 72/49. He vomited shortly thereafter. He was given fluids and Levophed. Repeat CT Scan of the head was negative for acute intracranial hemorrhage, mass effect, midline shift. Labs that night showed a sodium of 128, chloride of 95, and bicarbonate
of 11. Overall anion gap of 22. Lactic acid 3.2. VBG showed pH of 7.12. His glucose had increased from 184 that morning to 367 and then 441, so he was started on insulin drip for presumed DKA
When I went in to see him he shrugged in response to my questions about how he was feeling. He denies any history of shortness of breath, stating that his made him come to the hospital because he �looked goofy�. He denies current shortness of
breath, chest pain, fevers, chills. He has no feelings like his heart is racing. Overall he is free of complaints or concerns.
Past Medical History
Past Medical History: CAD, CHF, GERD, HTN, Hypercholesterolemia, IDDM and Other (Peptic Ulcer Disease, Aortic Stenosis, )
Past Surgical History: Tonsilectomy and Other (TURP)
Social History
Tobacco: Smoker (10-11 cigarettes/day)
Alcohol: Daily (6 drinks daily per report)
Drug: None
Personal:
Living: With Family
Family History
Family History: Reviewed & Not Pertinent
Allergies / Home Medications
Allergies
Allergy/AdvReac Type Severity Reaction Status Date / Time
No Known Allergies Allergy Verified 06/18/25 19:43
Home Medications
�Medication �Instructions �Recorded �Confirmed �Last Taken �Type
clopidogrel 75 mg tablet 75 mg PO DAILY Blood Clot 05/26/23 07/15/25 11/16/24 History
Prevention/Tx
atorvastatin 80 mg tablet 80 mg PO QPM High Cholesterol 08/19/23 07/15/25 11/15/24 History
ezetimibe 10 mg tablet 10 mg PO DAILY High Cholesterol 01/21/24 07/15/25 11/16/24 History
tamsulosin 0.4 mg capsule 0.4 mg PO DAILY Urinary Issue 11/16/24 07/15/25 11/16/24 History
dapagliflozin propanediol 10 mg 10 mg PO DAILY 03/02/25 07/15/25 Unknown History
tablet (Farxiga)
Held on 06/18/25.
Instructions: Resume on
07/05/25. Discuss with your
outpatient physician if and
when you should resume this
medication, based on your
renal function and any other
factors.
enalapril maleate 5 mg tablet 5 mg PO BID Blood Pressure 03/02/25 07/15/25 Unknown History
finasteride 5 mg tablet 5 mg PO DAILY BPH 03/02/25 07/15/25 Unknown History
insulin NPH isoph U-100 human 100 16 unit SC QHS Diabetes 03/02/25 07/15/25 Unknown History
unit/mL subcutaneous suspension
(Humulin N NPH U-100 Insulin
(isophane susp))
insulin NPH isoph U-100 human 100 26 unit SC DAILY Diabetes 03/02/25 07/15/25 Unknown History
unit/mL subcutaneous suspension
(Humulin N NPH U-100 Insulin
(isophane susp))
nifedipine 30 mg tablet,extended 30 mg PO DAILY #30 tabs 06/18/25 07/15/25 Unknown Rx
release
pantoprazole 40 mg tablet,delayed See Rx Instructions .Route 06/18/25 07/15/25 Unknown Rx
release .COMPLEX #90 tabs
sucralfate 100 mg/mL oral 1 g (10 mL) PO ACHS #1,000 mL 06/18/25 07/15/25 Unknown Rx
suspension
Review of Systems
-
History Source: Patient
Constitutional: No Symptoms
EENT: No Symptoms
Respiratory: No Symptoms
Cardiac: No Symptoms
Abdomen/GI: No Symptoms
: Difficulty Voiding (Self catheterizes 1/day at home, is able to urinate without catheterization at times)
Neuro: No Symptoms
Vitals / Labs / Diagnostic Testing
Vital Signs
Temp Pulse Resp BP Pulse Ox
98.0 F 137 16 103/57 95
07/18/25 08:06 07/18/25 05:50 07/18/25 05:50 07/18/25 05:50 07/18/25 05:50
Lab Data
07/18/25 04:04
Laboratory Results
07/17/25 07/17/25 07/17/25
09:21 23:42 23:42
PT 16.4 H
INR 1.30
APTT 55.6 H Cancelled 23.4
07/18/25
08:11
PT
INR
APTT 37.9 H
Microbiology
07/15/25 06:50 Nasal Swab Influenza Types A & B (JEFF) - Final
Negative for Influenza A & B, NAAT
Negative results must be combined with clinical observations
and patient history.
Nucleic Acid Amplification test (NAAT)performed on the
Flexuspine platform.
Diagnostic Testing:
Physical Exam
-
HEENT: Normocephalic and Anicteric
Cardiovascular: S1/S2, Irregular Rhythm and Other (No peripheral edema)
Respiratory: Clear
Neurology: Awake, Alert and Oriented
Skin: Warm, Dry and Good Color
General: Comfortable
Assessment
-
Assessment:
This is a 75 y/o male with pmhx of COPD, essential hypertension, ischemic cardiomyopathy vs heart failure with mildly reduced EF (40-45% initially, most recently 55% per 10/2023 Echo), insulin dependent diabetes mellitus, peptic ulcer disease who
presented to the ED on 07/15/2025 with 1 week of shortness of breath that had worsened two days prior to presentation found to have new atrial flutter, s/p left heart catheterization on 07/17, now with new DKA and hypotension not responsive to IV
fluid therapy.
Plan:
Hypotension, Suspected Shock
Essential Hypertension
Patient with high blood pressure at baseline with new hypotension following fall requiring pharmacological support due to non responsiveness to IV fluids
Initially on Levophed, now on Phenylephrine 80 for rapid aflutter
HOLD metoprolol in setting of hypotension requiring Phenylephrine.
HOLD Enalapril in setting of hypotension requiring Phenylephrine.
Continue Phenylephrine. Wean for goal MAP >65
Cardiology is following, will appreciate their insight into his case
Insulin Dependent Diabetes Mellitus
Diabetic Ketoacidosis
Was continued on NPH insulin in the ED, though it seems it may have been held when he was NPO for cardiac catheterization. Abruptly after his fall, his blood glucose increased and his bicarbonate decreased for overall anion gap of 22.
Started on insulin drip for presumed DKA on 07/17
HOLD Farxiga
Primary team has consulted diabetic nurse practitioner this AM, will appreciate their insight into his case
Acute Kidney Injury
Creatinine increased from baseline of 0.9-1.1 to 1.7 on 07/17/2025
Guzman catheter ordered to monitor Is and Os
Will monitor
New Onset Paroxysmal Rapid Atrial Flutter
New diagnosis but recurrent several times during this admission
Irregular heart rate today
HOLD metoprolol in setting of hypotension requiring Phenylephrine.
Currently on Diltiazem drip
Continue Heparin
Cardiology is following, will appreciate their insight into his case
Acute Heart Failure with Mildly Reduced Ejection Fraction
Per TTE 07/17: LVEF 40%. Prior Echos show EF ranging from 40-55%.
Lasix 40mg IV BID on hold
Metoprolol, Enalapril and Dapagloflozin all on hold
Abnormal Troponin Elevation
Coronary Artery Disease
Hyperlipidemia
Patient has been free of chest pain
Troponin peaked at 2.0, now downtrending
S/p Cardiac catheterization on 07/17
Continue Atorvastatin 80mg daily, Heparin, Aspirin
History of Peptic Ulcer disease
History of GI bleed
Patient now 1 month out from event, decrease Protonix 40mg BID to once daily
Urinary Retention
Patient self catheterizes once daily, does report going to the bathroom without catheterization during the day
Guzman catheter ordered to monitor Is and Os
Continue Tamsulosin
Continue Finasteride
Tobacco Dependence
Increase Nicotine patch from 18mg to 21 mg
[2025-07-18] MEDS: LOPRESSOR PO (08:52)
[2025-07-18] MEDS: VASOTEC PO (08:53)
--- NOTE | 2025-07-18 09:00 | W.PN.HOSP.TC ---
Today's Communication/Plan
-
Discontinue Cardizem and will touch base with cardiology regarding amiodarone
Continue with IV heparin
Wean Vidal-Synephrine as able
CT surgery consult
Guzman catheter placement
Follow-up BMP and if anion gap closes we will start patient on a diet
Assessment / Plan
Assessment / Plan
HPI: 75-year-old male with a past medical history of COPD, cigarette nicotine dependency, HH, GERD, CVA, HTN, HL, GIB/PUD, and diabetes presents with a 1 week history of dyspnea with activity, and orthopnea. reports that it has gotten worse in
the last 2 days. EMS found him to be satting 88% on room air. Upon arrival to the ER, he was found to have rapid atrial flutter. He received 2 boluses of IV diltiazem, and is currently on a diltiazem drip. He is now in controlled atrial flutter.
He denies chest pain, denies palpitations. No fever, no vomiting. No black or bloody stools. Does report left upper quadrant abdominal pain.
#New onset rapid atrial flutter
Recurrent ; RVR
Patient in mild heart failure. Mildly elevated filling pressures of 14 mmHg on cardiac cath noted. EF 40% .patient also hypotensive requiring vasopressors.
Avoid calcium channel blockers. Consider amiodarone or cardioversion.
Continue with IV heparin.
#Acute hypoxic respiratory insufficiency
#Acute heart failure with midrange EF
Continue Lasix 40 mg IV twice daily as the blood pressure tolerates. Off of Oxygen.
On Farxiga and enalapril-Continue as blood pressure permits. Did not tolerate Entresto in the past because of blood pressure
Trend creatinine, trend daily weights
#Probable non-ST elevation myocardial infarction
#Coronary artery disease-multivessel on cardiac cath yesterday
Troponin peaked at 2.0
Status post aspirin 324 mg x 1
Started aspirin 81 mg daily today
Consult cardiothoracic surgery due to multivessel nature of his CAD.
# Garbled speech with right facial droop suspicious for CVA
CT head yesterday showed no evidence of acute stroke. CT of head and neck showed no evidence of large vessel occlusion.
Reassumed IV heparin .
CHADSVASC 8 ( HTN, HF, DM,carotid dz, CVA, age)
Consider MRI of the brain. Neurology following
#Hypotension requiring vasopressors suggestive shock
Continue with the Vidal-Synephrine. Optimize heart rate control.
# ROSSY-possibly multifactorial. Patient self-catheterization at home and he was seen retention requiring straight cath. Prerenal is also possibility and also cardiorenal but with the rapid improvement suspect may be retention related. In view of
the critical nature of this illness as well Place a Guzman catheter and follow creatinine and output closely
#Diabetes with poor control. Hemoglobin A1c 8.4
Diagnosed at 37 years old
Is on NPH insulin, 26 units in the morning, 16 units at night
# Possible DKA
Patient's blood sugars were high yesterday. pH was 7.12 with a bicarb of 11. Anion gap of 30 after correcting for sodium.
Patient currently on IV insulin. Last BMP shows improved anion gap to 14.
Follow BMP-if anion gap closes, will start on oral diet. Diabetic nurse practitioner following.
#Hyponatremia secondary to hyperglycemia
#Leukocytosis unclear if reactive. With positive pyuria will start on ceftriaxone and follow urine culture chest x-ray without any acute cardiopulmonary disease
#Urinary retention
Patient self catheterizes, continue finasteride
#History of peptic ulcer disease
#History of GI bleed
#Left upper quadrant abdominal pain
Continue Carafate, Protonix 40 mg twice daily
Monitor hemoglobin-stable
#Cigarette nicotine dependency
Smoking cessation counseling has been provided
Nicotine patch ordered
#Daily alcohol use
Drinks 2 beers a day
Monitor for withdrawal
#Essential hypertension
Continue enalapril
#Hyperlipidemia
Continue statin
#Mild aortic stenosis
DVT prophylaxis�Eliquis
Full code
Discussed with ICU team
Patient critically ill with multiple acute issues including shock
Total Critical Care Time_35____ minutes. I was immediately available to the patient and staff. I personally examined, reviewed labs, diagnostic images/reports, interpretations, treatment plans, discussed patient care with other providers and
family or caregivers (if patient is unable to make decisions), entered orders as appropriate and documented the medical record.
Portions of this chart may have been created with voice recognition software. Occasional wrong word or 'sound alike' substitutions may have occurred due to the inherent limitations of voice recognition software.
Anticipated Discharge: > 48 hours
Subjective/Interval History
-
Date of Service: July 18, 2025
Last night events noted.
This morning patient is alert and oriented to place and person.
He denies any palpitations, chest pain or shortness of breath.
Denies any headache. Not sure about the speech and asked me if it is garbled and said it is still slightly garbled.
Denies any visual disturbances. Denies any limb weakness. Denies any right facial numbness.
Denies any nausea today. He had emesis yesterday. No abdominal pain. Denies any diarrhea. Denying any dysuria or difficulty urinating.
Objective Data
-
Labs:
Laboratory Results
07/17/25 07/17/25 07/17/25
22:19 23:42 23:42
WBC
Hgb 12.6 L
Hct 39.6
Plt Count
PT 16.4 H
INR 1.30
APTT Cancelled 23.4
Sodium 128 L
Potassium 5.0
Chloride 95 L
Carbon Dioxide 11 L*
BUN 46 H
Creatinine 1.7 H
Glucose 367 H 441 H
Calcium
Total Bilirubin
AST
ALT
Alkaline Phosphatase
07/17/25 07/18/25 07/18/25
23:42 04:04 04:04
WBC 14.1 H
Hgb 12.4 L
Hct 38.0 L
Plt Count 272
PT
INR
APTT
Sodium 133 L Cancelled
Potassium 3.7 D
Chloride
Carbon Dioxide
BUN
Creatinine
Glucose Cancelled
Calcium 8.6
Total Bilirubin
AST
ALT
Alkaline Phosphatase
07/18/25 07/18/25 07/18/25
04:04 04:04 04:04
WBC
Hgb
Hct
Plt Count
PT
INR
APTT
Sodium
Potassium Cancelled
Chloride 102 Cancelled
Carbon Dioxide 21 L Cancelled
BUN 49 H
Creatinine
Glucose
Calcium
Total Bilirubin
AST
ALT
Alkaline Phosphatase
07/18/25 07/18/25 07/18/25
04:04 04:04 04:04
WBC
Hgb
Hct
Plt Count
PT
INR
APTT
Sodium
Potassium
Chloride
Carbon Dioxide
BUN Cancelled
Creatinine 1.6 H Cancelled
Glucose 245 H Cancelled
Calcium 8.7
Total Bilirubin
AST
ALT
Alkaline Phosphatase
07/18/25 07/18/25 07/18/25
04:04 06:00 08:11
WBC
Hgb
Hct
Plt Count
PT Pending
INR Pending
APTT Pending 37.9 H
Sodium 123 L D
Potassium 7.8 H* D
Chloride 102
Carbon Dioxide 20 L
BUN 38 H
Creatinine 1.1
Glucose Pending
Calcium Cancelled 6.2 L* D
Total Bilirubin 1.1
AST 24
ALT 25
Alkaline Phosphatase 61
07/18/25 07/18/25 07/18/25
12:00 15:00 16:00
WBC
Hgb
Hct
Plt Count
PT
INR
APTT Pending
Sodium Pending Pending
Potassium Pending Pending
Chloride Pending Pending
Carbon Dioxide Pending Pending
BUN Pending Pending
Creatinine Pending Pending
Glucose Pending Pending
Calcium Pending Pending
Total Bilirubin
AST
ALT
Alkaline Phosphatase
07/18/25
20:00
WBC
Hgb
Hct
Plt Count
PT
INR
APTT
Sodium Pending
Potassium Pending
Chloride Pending
Carbon Dioxide Pending
BUN Pending
Creatinine Pending
Glucose Pending
Calcium Pending
Total Bilirubin
AST
ALT
Alkaline Phosphatase
Vital Signs:
Vital Signs
Temp Pulse Resp BP Pulse Ox
98.0 F 100 14 100/63 95
07/18/25 08:06 07/18/25 08:30 07/18/25 08:30 07/18/25 08:30 07/18/25 08:30
I&O
07/17/25 07/18/25 07/19/25
06:59 06:59 06:59
Intake Total 1200 / 1200 1526.0 / 1774.5 627.0 / 627.0
Output Total 1280 / 1280 1100 / 1100 0 / 0
Balance -80 / -80 426.0 / 674.5 627.0 / 627.0
Physical Exam
-
General: Comfortable
HEENT: Moist Mucous Membranes
Respiratory: Crackles (In the left base today) and Non Labored Respirations; Negative Wheezes or Accessory Resp Muscle Use
Cardiac: S1/S2, Irregular Rhythm and Tachycardic
GI: Soft, Nontender, Nondistended and Normal Bowel Sounds
Musculoskeletal: No Edema
Neuro: AO x 3, No Motor Deficits, Slurred Speech (Speech slightly garbled) and Facial Droop (Subtle right facial asymmetry); Negative Tremors
Psych: Calm; Negative Confused or Agitated
Data Reviewed
-
CT Scan: Report Reviewed by me (CT head, CT angiogram of the head and neck)
Labs: Labs Reviewed by me
[2025-07-18 09:10] LABS: Glucose - Point of Care 216 mg/dl (70-99)
--- NOTE | 2025-07-18 09:10 | VNURNOTE ---
Chart reviewed. Rec'ed request for [facility] before Rapid Response occurred. Will re-eval and enter referral once DC plan confirmed and closer to DC.
[2025-07-18] MEDS: FARXIGA PO (09:24)
--- NOTE | 2025-07-18 09:35 | PN.DE.MGMTRT ---
Insulin Management
- -
07/18/2025 Diabetes Management Consult
Patient admitted 07/15 with c/o increasing SOB for past two days, found to be in A flutter, mild heart failure, acute hypoxic respiratory failure, possible non-ST elevation MD (Troponin peaked at 2). PMH: CAD, ischemic cardiomyopathy, heart
failure with mildly reduced ejection fraction, mild aortic stenosis, COPD, gastric ulcers, HH, GERD, daily alcohol use, tobacco abuse, hypertension, hyperlipidemia, CVA 01/2015 on Plavix, colon polyps, urinary retention requiring
self-catheterization, erectile Dysfunction, falls, pneumothorax and T1DM- was dx at 37 years old. Patient was inpatient 06/13 to 06/18 with acute change in mental status, encephalopathy. Prior to admission was taking NPH 26 units in AM and 16
units @ HS. A1C 8.4%, cr 1.1 eGFR >60.
Patient was found to be in DKA after fall 07/17, glucose 594. Transferred to ICU and insulin infusion - DKA protocol started. GAP now 8 and previous was 11. Will transition to subcutaneous insulin.
Patient is awake alert and orient able to discuss diabetes care, at bedside and very supportive. States he was diagnosed with diabetes at age 37 type 1 diabetes requiring insulin. They both state he is followed by his primary doctor, Bobo,
for diabetes management. He has been on NPH and was recently ordered novolog but told only to take if glucose > 300. Discussed at length importance of glucose control and action of lantus. He states he does not recall ever being on lantus but is
agreeable to try.
Will transition to 18 units lantus daily, first dose now, insulin infusion off 2 hours after lantus administered. Will order 2000 calorie diet with corrective insulin only until glucose reported pre dinner. Will then order mealtime insulin.
Discussed with nurse.
Will follow.
Diabetes History
- -
Type of Diabetes: 1
Pre-Admission Diabetes Regimen
07/17/25 07/18/25 07/18/25
23:42 04:04 04:04
Creatinine 1.7 H 1.6 H Cancelled
07/18/25
08:11
Creatinine 1.1
Lab Results
Hemoglobin A1c 8.4 % (4.0-5.9) H 07/16/25 07:38
Insulin Pump Settings
IP Diabetes Regimen
07/17/25 07/17/25 07/17/25
11:37 14:20 17:41
Glucose
POC Glucose 197 H 203 H 196 H
07/17/25 07/17/25 07/17/25
21:57 22:19 23:37
Glucose 367 H
POC Glucose 594 H* 370 H
07/17/25 07/17/25 07/18/25
23:42 23:42 01:58
Glucose 441 H Cancelled
POC Glucose 336 H
07/18/25 07/18/25 07/18/25
03:03 04:03 04:04
Glucose 245 H
POC Glucose 295 H 237 H
07/18/25 07/18/25 07/18/25
04:04 05:51 06:57
Glucose Cancelled
POC Glucose 354 H 233 H
07/18/25 07/18/25 07/18/25
07:58 08:11 08:59
Glucose 960 H*
POC Glucose 183 H 216 H
Meal type: Dinner
Amount consumed: 80%
Patient Education
--- NOTE | 2025-07-18 09:46 | W.PN.CD ---
Addendum entered and electronically signed by Benjamin Rodriguez MD 07/18/25 13:57:
Response to CDI query: Typical atrial flutter
Addendum entered and electronically signed by Benjamin Rodriguez MD 07/18/25 10:15:
DKA: diabetes team following. continue insulin drip.
I had a long conversation with his and answered all of her questions. She reports that patient drinks 6 alcoholic drinks a day. We will watch for withdrawal.
Original Note:
Today's Communication / Plan
-
Switch diltiazem to amiodarone given ongoing shock and HFrEF
Wean phenylephrine as tolerated for goal MAP greater than 65
GDMT and Lasix on hold
Continue heparin until CT surgery evaluation then possible transition to DOAC
Impression / Plan
-
Impression/Plan: 75 y/o male with a history of tobacco abuse with COPD, presumed CAD (abnormal stress test) and ICMO/HFmEF (LVEF 40-45%), HTN, HLD, PUD/GIB and IDDM1 (since age 37) admitted with BEAR/orthopnea with hypoxic respiratory failure and
new atrial flutter, found to have elevated troponin. TTE showed mildly reduced EF. Cardiac catheterization showed multivessel CAD. Course has been complicated by stroke alert, DKA, and now shock.
Gum Worker: Michael
Shock
-On 07/17 evening developed hypotension not responsive to IV fluids. Started on Levophed which was then transition to phenylephrine for rapid AF. Transferred to ICU.
-Unclear etiology. Mildly elevated WBC but afebrile. Repeat CXR no acute process. Urine culture pending. Doubt cardiogenic with recent LVEF 40%.
-Obtain blood cultures
-Continue empiric antibiotics
-Wean phenylephrine as tolerated for goal MAP >65
#Atrial flutter/Atrial fibrillation
-New diagnosis, noted on recent monitor 07/13/25.
-Had converted to NSR but now back in atrial flutter with variable conduction
-Switch diltiazem to IV amiodarone given shock requiring vasopressors and low LVEF
-Hold beta-da for shock
-CHADSVASC = 8 ( HTN, HF, DM,carotid dz, CVA (x2), age x2).
-Therapeutic anticoagulation with heparin gtt until CT surgery eval. terminal gauger supervisor transition to apixaban.
#Abnormal troponin elevation with multivessel CAD
-Suspect type II ID from demand in the setting of rapid atrial flutter/fibrillation and shock. He denies chest pain. Troponin peaked at 2.0.
-[facility] 07/17/2025: INSTALLMENT AGENT mid LAD, INSTALLMENT AGENT proximal LCx, 80-90% ostial RCA, 70% mid RCA; LVEDP 14 mmHg at 60.[address] surgery consult pending
-Continue heparin, aspirin, Ezetimibe and statin
#HFmrEF
-Acute. TTE 07/17/2025: LVEF 40%, akinetic apex
-Echo from 05/2025 with EF of 50-55% with aneurysmal apex/septal wall, hypokinesis of the inferolateral wall.
-Patient had been off GDMT for unknown reasons at last OV ( fargixa, metoprolol, did not tolerate entresto in past b/c of BP).
-[facility] 07/17/2025: LVEDP 14 mmHg at 60.8 kg
-GDMT as hemodynamics will tolerate:
-Diuretics: HOLD for shock and normal LVEDP yest
-Beta da: Metoprolol tartrate 50 mg PO BID -- ON HOLD for shock
-ACEI/ARB/ARNi: Enalapril 5 mg PO BID. Patient previously intolerant of sacubitril-valsartan. -- ON HOLD for shock
-MRA: None.
-SGLT2i: Dapagloflozin 10 mg daily. -- ON HOLD
-ICD: Not currently indicated.
#HTN
-Chronic, stable.
-Enalapril recently increased as outpatient.
#Mild
-Chronic, stable.
#Carotid Disease:
-Chronic, stable.
-Bilateral disease on US - 50-69%.
-Follows with Dr. Guzman.
-Statin/risk factor modification.
Subjective/Interval History:
Underwent cardiac catheterization yesterday. Subsequent stroke alert was called for garbled speech and right-sided facial droop. CT head with no acute intracranial abnormality. CTA head/neck with no large vessel occlusion, dissection, or
aneurysms. Proximal internal carotid arteries showed 50-69% narrowing bilaterally. Neurology felt that he likely had a stroke involving the left hemisphere secondary to atrial fibrillation. Heparin was resumed at 6 PM. At 7:45 PM patient had an
unwitnessed fall trying to go to the bathroom. Was hypotensive to 72/49. Stat hemoglobin stable. Stat CT head negative for bleed. Heparin was briefly held but then resumed. Given IV fluids but eventually started on norepinephrine. Transferred
to ICU. In ICU was found to be in DKA, started on DKA protocol. Norepinephrine switched to phenylephrine given rapid AF. Diltiazem drip started given rates were still elevated.
CCT: 46 minutes
Physical Exam
Vital Signs/Labs
Vital Signs
Temp Pulse Resp BP Pulse Ox
98.0 F 100 14 100/63 95
07/18/25 08:06 07/18/25 08:30 07/18/25 08:30 07/18/25 08:30 07/18/25 08:30
07/17/25 07/18/25 07/19/25
06:59 06:59 06:59
Actual Weight 134 lb 5 oz 134 lb 11.239 oz
07/18/25 04:04
PT 16.4 Sec (11.4-14.6) H 07/17/25 23:42
INR 1.30 07/17/25 23:42
APTT 37.9 Sec (23.4-35.0) H 07/18/25 08:11
Magnesium 2.3 mg/dl (1.6-2.3) 07/18/25 04:04
Triglycerides 63 mg/dl (10-149) 07/16/25 07:38
LDL Cholesterol, Calc 56 mg/dl 07/16/25 07:38
VLDL Cholesterol, Calc 12 mg/dl (0-30) 07/16/25 07:38
HDL Cholesterol 64 mg/dl 07/16/25 07:38
07/15/25
06:50
[id number] Pept 3770
LAB Results
07/15/25 07/15/25 07/16/25
10:37 16:07 07:38
Troponin I 0.913 H* D 2.000 H* D Cancelled
07/16/25 07/16/25 07/16/25
08:14 08:15 16:15
Troponin I 1.450 H* Cancelled Cancelled
07/18/25
04:04
Troponin I 0.934 H*
Physical Exam
Constitutional: No acute distress and Comfortable
Cardiovascular: Pedal edema is absent, Rhythm/rate is irregular, S1S2 is normal and Murmur/rub/gallop absent
Respiratory: Respiratory effort normal
Data Reviewed
-
Date of Service: July 18, 2025
Medical Decision Making: Reviewed Test Results, Independent Historian Assessment, Test Interpretation and Review of Case with other Provider
EKG: Tracing Personally Visualized and interpreted
Echo: Report Reviewed by me
X-Ray/CT/US/MRI/NUC/PET: Report Reviewed by me
Labs: Labs Reviewed by me
Critical Care Time (in minutes): 46
[2025-07-18 09:49] LABS: Glucose - Point of Care 247 mg/dl (70-99)
--- NOTE | 2025-07-18 10:05 | PTCARENOTE ---
Addendum entered by Eve Pereira RN 07/18/25 10:59:
Repeat BMP delayed
Original Note:
PICC line being placed.
[2025-07-18] MEDS: CARAFATE SUSPENSION 1 GM PO ×4 (10:16→21:49)
[2025-07-18] MEDS: ASPIR LOW (ENTERIC COATED) 81 MG PO (10:17)
[2025-07-18] MEDS: ZETIA 10 MG PO (10:17)
[2025-07-18] MEDS: FLOMAX 0.4 MG PO (10:18)
[2025-07-18] MEDS: PROSCAR 5 MG PO (10:18)
[2025-07-18] MEDS: LASIX IV (10:18)
[2025-07-18 10:21] LABS: Glucose - Point of Care 149 mg/dl (70-99)
--- NOTE | 2025-07-18 10:38 | PTOTSP ---
Speech Therapy Evaluation:
Pt with chronic risk factors of dysphagia including hx of COPD, CVA, HH, and GERD, acutely compounded by concern for CVA. Despite this, pt with swallow function that appears baseline. Pt with reduced bolus formation (noted during previous BAKER HELPER
evaluation). No overt s/sx of aspiration, CXR without PNA, and pt on room air.
Recommend:
1. Regular solids and thin liquids
2. Medications as tolerated
3. General aspiration precautions
4. BAKER HELPER to follow to monitor tolerance of diet and determine if pt would benefit from additional testing (pending CVA workup)
--- NOTE | 2025-07-18 10:45 | PTCARENOTE ---
Pt without void since st cath this am. Discussed in rounds given pressor requirement and dye given for cath/ct angio hua placed without difficulty yielding yellow, cloudy sediment urine. Sample had been sent previously with st cath overnight.
ABX ordered by Dr Cleaning. at bedside after insertion and updated.
[2025-07-18] MEDS: CORDARONE 259 MG IV ×2 (11:08→18:13)
--- NOTE | 2025-07-18 11:08 | CONSULT.CT ---
Consultation
-
Date/Time Consultation Requested: 07/17/25
Date/Time Consultation Performed: 07/18/25
Requesting Provider: Dr. Bull
Performing Provider: DORY Jones for Dr. Tani Fermin
Reason for Consultation: Multivessel CAD
Patient History
Physicians
Family Physician: Amelia Broussard
Inpatient Plate Shop Helper: [facility]
History of Present Illness
Mr. Joel Tripp is a 75-year-old male with a PMHx of ICMO/HFmEF (LVEF 40-45%), HTN, HLD, PUD/GIB (10/2024 & 05/2025), T1DM (since , A1C 8.4%) with prior DKA (05/2025), COPD, ETOH misuse (6 beers/day), Tobacco misuse (0.5-1 ppd/35y), prior R
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 Patient was admitted with
acute hypoxic respiratory failure and new onset atrial flutter with elevated troponin (peak 2.0). Patient obtained a TTE which reported A-flutter with RVR, mild global hypokinesis with aneurysmal/akinetic apex, LVEF of 40%, and mild LA enlargement.
Compared to prior TTE report (05/2025), LVEF was reduced from 50-55% to 40%, global hypokinesis is new, and apex is similar. Patient underwent a LHC on 06/17/[address] Bull which reported SCIENCES DEAN of mid LAD, SCIENCES DEAN of pLCx, and 80-90% of RCA. Cardiac
surgery was consulted for consideration of surgical revascularization.
Following LHC, patient presented with dysarthria, R-sided facial droop, and hypotension in which a stroke alert was called. Patient obtained an IV fluid bolus. Neurology was consulted. CT of the head showed no acute intracranial abnormalities.
CTA head/neck showed proximal internal carotid artery narrowing 50 to 65% bilaterally. Heparin drip was resumed. Later that evening, patient had an unwitnessed fall and continued to be hypotensive with SBP's in 70s. He was initiated on
vasopressor support following fluid resuscitation. Repeat CT head was negative for acute intracranial hemorrhage, mass effect, and midline shift. Neurology is continuing to follow. Lab work later revealed presentation of DKA in which patient was
started on an insulin drip. Patient was further FORD cultured with results pending.
Upon consultation, patient neurological assessment was unchanged with continued dysarthria and right lip facial droop. His was at bedside and shared he has had complaints of lightheaded and dizziness over the past few months with frequent
falls. He had recent hospitalizations due to DKA, GIB, UTI, and injuries related to falls. She shared that he has seemed to 'slow down' over the last few weeks and has not been as 'sharp'. She reported his shortness of breath occurred for a few
days prior to his ED presentation and persistent complaints of left upper quadrant abdominal pain. He denied any current chest pain, chest pressure, n/v, or SOB.
Past Medical History
Past Medical History: Atrial Fib (paroxysmal AF per Holter Monitor report 07/10/25), BPH (Urinary Retention, Self-catheterizes), CAD, CHF (HFmEF (40%)), COPD, CVA/TIA (prior R Pontine CVA (01/2015), on Plavix), BEAR, GERD (PUD/GIB (05/2025)), HTN,
Hypercholesterolemia, IDDM (prior DKA (05/2025)), SOB and Other (ETOH misuse (6 beers/day, increased on weekends per spouse), Tobacco misuse (.5-1 ppd for 30+ years), prior traumatic PTX)
Past Surgical History
Past Surgical History: Tonsilectomy and Urological (TURP)
Family History
Mother: N/A
Father: N/A
Family Medical History: Cancer
Social History
Alcohol: Daily (6 beers/day)
Drug: None
Tobacco: Smoker
Personal:
Living: With Spouse
Allergies
Allergy/AdvReac Type Severity Reaction Status Date / Time
No Known Allergies Allergy Verified 06/18/25 19:43
Home Medications
�Medication �Instructions �Recorded �Confirmed �Type
clopidogrel 75 mg tablet 75 mg PO DAILY Blood Clot 05/26/23 07/15/25 History
Prevention/Tx
atorvastatin 80 mg tablet 80 mg PO QPM High Cholesterol 08/19/23 07/15/25 History
ezetimibe 10 mg tablet 10 mg PO DAILY High Cholesterol 01/21/24 07/15/25 History
tamsulosin 0.4 mg capsule 0.4 mg PO DAILY Urinary Issue 11/16/24 07/15/25 History
dapagliflozin propanediol 10 mg 10 mg PO DAILY 03/02/25 07/15/25 History
tablet (Farxiga)
Held on 06/18/25.
Instructions: Resume on
07/05/25. Discuss with your
outpatient physician if and
when you should resume this
medication, based on your
renal function and any other
factors.
enalapril maleate 5 mg tablet 5 mg PO BID Blood Pressure 03/02/25 07/15/25 History
finasteride 5 mg tablet 5 mg PO DAILY BPH 03/02/25 07/15/25 History
insulin NPH isoph U-100 human 100 16 unit SC HS Diabetes 03/02/25 07/15/25 History
unit/mL subcutaneous suspension
(Humulin N NPH U-100 Insulin
(isophane susp))
insulin NPH isoph U-100 human 100 26 unit SC DAILY Diabetes 03/02/25 07/15/25 History
unit/mL subcutaneous suspension
(Humulin N NPH U-100 Insulin
(isophane susp))
nifedipine 30 mg tablet,extended 30 mg PO DAILY #30 tabs 06/18/25 07/15/25 Rx
release
pantoprazole 40 mg tablet,delayed See Rx Instructions .Route 06/18/25 07/15/25 Rx
release .COMPLEX #90 tabs
sucralfate 100 mg/mL oral 1 g (10 mL) PO ACHS #1,000 mL 06/18/25 07/15/25 Rx
suspension
Review of Systems
-
Unable to obtain full review of systems at this time due to: Acuity
History Source: Patient and Family
General: Reports No Symptoms
HEENT: Reports Other (dysarthria, R facial weakness)
Respiratory: Reports BEAR and Cough
Cardiac: Reports CAD
Abdomen/GI: Reports Abdominal Pain (LUQ), Nausea and Ulcers
: Reports Other (Retention, Straight cath's 1 x/day)
Musculoskeletal: Reports No Symptoms
Skin: Reports No Symptoms
Neurological: Reports CVA, TIA and Dizzy
Vascular: Reports No Symptoms
Physical Exam
Vital Signs
Temp 98.0 F 07/18/25 08:06
Temp route: Oral 07/18/25 08:06
Pulse 94 07/18/25 09:45
Rhythm: Atrial flutter 07/18/25 08:40
With- Atrial fibrillation 07/18/25 08:00
Resp Rate 17 07/18/25 09:45
Blood pressure LEFT upper extremity: 112/64 07/17/25 18:22
Blood pressure RIGHT upper extremity: 122/83 07/17/25 18:22
Blood pressure 97/59 07/18/25 09:30
Blood pressure extremity used: Right upper arm 07/18/25 00:20
Position: Lying 07/18/25 00:20
MAP (cuff-Ez Monitor) 70 07/18/25 09:30
MAP 72 07/15/25 09:51
SaO2 100 07/18/25 10:02
Nasal Cannula flow liters per minute 1 07/17/25 07:15
Oxygen Mode of Delivery Room air 07/18/25 10:02
Can the patient verbally communicate their pain? Yes 07/18/25 08:00
Actual Weight 61.1 kg 07/18/25 06:00
Body Mass Index (BMI) 19.9 07/18/25 06:00
Labs
07/18/25 04:04
PT 16.4 Sec (11.4-14.6) H 07/17/25 23:42
APTT 37.9 Sec (23.4-35.0) H 07/18/25 08:11
Hemoglobin A1c 8.4 % (4.0-5.9) H 07/16/25 07:38
Troponin I 0.934 ng/ml H* 07/18/25 04:04
Wip-V-Cprjsxeicmu Pept 3770 pg/ml 07/15/25 06:50
Urinalysis
Urine Color Yellow 07/18/25 01:26
Urine Clarity Cloudy (Clear) 07/18/25 01:26
Urine pH 5.0 (5.0-9.0) 07/18/25 01:26
Ur Specific [place] 1.010 (<1.030) 07/18/25 01:26
Urine Ketones 3+ (Negative) A 07/18/25 01:26
Ur Occult Blood Reflex 2+ (Negative) A 07/18/25 01:26
Urine Bilirubin Negative (Negative) 07/18/25 01:26
Leukocyte Esterase Rfl 3+ (Negative) A 07/18/25 01:26
Urine RBC 0-2 /HPF (0-2) 07/18/25 01:26
Urine WBC (Reflex) >100 /HPF (0-5) A 07/18/25 01:26
Ur Squamous Epith Cells 0-2 /LPF (Few) 07/18/25 01:26
Urine Bacteria (Reflex) Moderate (Negative) A 07/18/25 01:26
Urine Glucose 4+ (Negative) A 07/18/25 01:26
Urine Albumin (Reflex) 2+ (Neg - Trace) A 07/18/25 01:26
Exam
General: No Apparent Distress and Comfortable
HEENT: Normocephalic, Atraumatic, PERRLA and EOMI
Respiratory: Clear and Other (Diminished in B/L bases)
Cardiac: S1/S2
GI: Soft, Non Tender, Non Distended and Normal Bowel Sounds
Rectal: Deferred by Provider
Skin: Warm and Dry
Neuro: AO x 3, No Motor Deficits and Other (Dysarthria, R Facial Droop )
Extremities: Pulses (+2 DP B/L, +1 Radial B/L)
Psych: Calm
Assessment / Plan
-
#Multivessel Coronary Artery Disease
Hospitalization course complicated by new onset AF, neurological changes, DKA, shock.
Continue medical management by primary team.
Patient's case will be discussed with the Attending Physician.
Further details regarding potential surgical intervention will be determined after Attending Physician�s full evaluation
Routine preoperative cardiothoracic surgery orders will be initiated, including:
B/L Vein mapping
CT Chest - obtained 07/17
STS risk stratification score will be calculated after preoperative testing is complete
Continue Heparin gtt per Cardiology, hold transition to Apixaban until plan for revascularization has been established.
Last dose of Plavix suspected to be 07/14/25.
Data Reviewed
-
Basket Patcher: Report Reviewed by me
Echo: Report Reviewed by me
Radiology: Report Reviewed by me
CT Scan: Report Reviewed by me
Labs: Labs Reviewed by me
Old Records: Reviewed
[2025-07-18 11:13] LABS: Glucose - Point of Care 157 mg/dl (70-99)
[2025-07-18 11:13] LABS: Blood Urea Nitrogen 50 mg/dl (9-20); Calcium 8.4 mg/dl (8.4-10.2); Carbon Dioxide 24 mmol/L (22-30); Chloride 103 mmol/L (98-107); Estimated Creatinine Clearance 39 ml/min; Glucose 160 mg/dl (70-99); Potassium 4.6 mmol/L (3.5-5.1); Sodium 135 mmol/L (135-145); eGFR 52.41
[2025-07-18] MEDS: NEO-SYNEPHRINE 1% 260 MG IV (11:24)
[2025-07-18] MEDS: STERILE WATER FOR INJECTION 10 ML IV (11:27)
[2025-07-18] MEDS: PROTONIX 40 MG PO (11:28)
[2025-07-18] MEDS: ROCEPHIN 1000 MG IV (11:28)
[2025-07-18] MEDS: PROTONIX PO (12:10)
[2025-07-18 12:12] LABS: Glucose - Point of Care 140 mg/dl (70-99)
[2025-07-18] MEDS: LANTUS 0.18 UNITS SC (12:29)
--- NOTE | 2025-07-18 12:48 | PN.CDI ---
CDI
- -
CDI:
Physician Documentation Request
Admit Date: 07/15/25 09:10
Dear Doctor Michael,
Patient admission diagnosis includes new onset atrial flutter.
Please provide further specificity regarding atrial flutter:
Typical Atrial Flutter - Type I: Classic or common atrial flutter, Rate is 240-340 beats/min. Usually responds to atrial pacing.
Atypical Atrial Flutter - Type II: Less common and more unstable. Rate is 340-440 beats/min. Less responsive to atrial pacing.
Other - please specify
Use of terms such as suspected, likely, concern for, or probable (associated with a specific diagnosis that is being evaluated, monitored, or treated as if it exists) are acceptable and can be coded in the inpatient setting, when documented at the
time of discharge.
Thank you,
Shavonne Bailey RN, BSN
CDI Specialist
tiger text
Please use your independent medical judgment in providing your response.
--- NOTE | 2025-07-18 12:57 | PTCARENOTE ---
Systems reviewed. Neuro check unchanged, pt drowsy and fatigued. did not sleep much overnight. at bedside. lunch tray ordered, pt denies nausea but coughed and gagged up oral secretions. offered zofran, pt declined. sat up HOB to prevent
aspiration. suction set up at bedside. call soto within reach. bed alarm set for safety.
[2025-07-18 12:58] LABS: Glucose - Point of Care 147 mg/dl (70-99)
[2025-07-18 14:04] LABS: Glucose - Point of Care 145 mg/dl (70-99)
--- NOTE | 2025-07-18 14:58 | CM ---
Guzman placed, IV/heparin/amiodarone/rocephin/lasix. Discharge POC: Awaiting therapy evals. HH referral previously forwarded per patient request.
[2025-07-18 15:49] LABS: APTT 50.9 Sec (23.4-35.0)
[2025-07-18] MEDS: NSS 500 IV (16:16)
[2025-07-18] MEDS: NSS 250 IV (16:19)
--- NOTE | 2025-07-18 16:25 | PTCARENOTE ---
Addendum entered by Eve Pereira RN 07/19/25 07:36:
Late entry: 07/19 1733- TT Dr. Rodriguez made aware bolus did not change HR significantly. Plan to titrate Vidal-synephrine gtt down.
Original Note:
HR 120-130s. Dr. Rodriguez TT to make aware. 500cc NS bolus ordered. Pt asymptomatic, denies palpitations.
[2025-07-18 17:15] LABS: Glucose - Point of Care 189 mg/dl (70-99)
[2025-07-18] MEDS: LIPITOR 80 MG PO (18:06)
[2025-07-18] MEDS: NOVOLOG FLEXPEN-LOW RESISTANCE 3 UNITS SC (18:07)
[2025-07-18] MEDS: NOVOLOG FLEXPEN 2 UNITS SC (18:07)
--- NOTE | 2025-07-18 20:36 | PTCARENOTE ---
Assumed care of patient. Hand-off drip validation done. Patient is drowsy, but alert and oriented x3. He is afebrile, moves all extremities and follows commands. PERRLA +3. Facial droop is minimal with mild dysarthria, see NIH charting. Patient is
in atrial flutter with a rate of 130. His blood pressure is being maintained on 40 mcg of Vidal for a MAP goal > 65. Pulses are palpable, no edema noted. Cath site right radial is dry and intact, some small bruising around site, no hematoma. Patient
is on room air, lungs are diminished in the bases, with dry cough. Abdomen is soft and nontender, no complaints of nausea or vomiting. Bowel sounds are present. Guzman catheter in place, draining yellow urine with moderate amount of sediment. Skin
has some bruising from IV puncture sites, but is otherwise intact. PICC line in place, peripheral IVs all c/d/i.
[2025-07-18 20:41] LABS: Glucose - Point of Care 204 mg/dl (70-99)
[2025-07-18 22:21] LABS: APTT 79.6 Sec (23.4-35.0)
[2025-07-19] VITALS (31 sets, daily range): BP systolic 88–128; BP diastolic 61–96; BMI 20.9
--- NOTE | 2025-07-19 00:44 | PTCARENOTE ---
No changes in assessment. Patient sleeping comfortably in bed.
[2025-07-19 03:17] LABS: Glucose - Point of Care 170 mg/dl (70-99)
--- NOTE | 2025-07-19 04:16 | PTCARENOTE ---
Patient is off Vidal drip, maintaining adequate blood pressures with a MAP > 65. No other changes in assessment.
[2025-07-19 04:25] LABS: Hematocrit 30.0 % (39.0-52.0); Hemoglobin 10.5 g/dL (13.0-18.0); Mean Corp Hgb Conc. 35.0 g/dL (33.0-37.0); Mean Corpuscular Volume 91.2 fL (80.0-94.0); Platelet Count 220 10^3/uL (130-400); Red Cell Dist. Width 13.4 % (11.5-14.5)
[2025-07-19 04:45] LABS: APTT 151.0 Sec (23.4-35.0)
[2025-07-19 05:04] LABS: Blood Urea Nitrogen 34 mg/dl (9-20); Calcium 8.2 mg/dl (8.4-10.2); Carbon Dioxide 26 mmol/L (22-30); Chloride 103 mmol/L (98-107); Estimated Creatinine Clearance 50 ml/min; Glucose 208 mg/dl (70-99); Magnesium 2.3 mg/dl (1.6-2.3); Potassium 3.9 mmol/L (3.5-5.1); Sodium 132 mmol/L (135-145); eGFR > 60.00
--- NOTE | 2025-07-19 07:01 | W.PN.INTV ---
Addendum entered and electronically signed by Dewayne Babcock MD 07/19/25 15:11:
Cardiology correspondence reviewed
Okay for patient to be transferred to IVU.
Orders placed
We will sign off. Please call with questions
Addendum entered and electronically signed by Dewayne Babcock MD 07/19/25 12:13:
Patient seen and examined independently by myself. Resident note reviewed, agree with assessment and plan patient feels much improved overall. He is more conversant.
He denies chest pain, shortness of breath, nausea, abdominal pain. Heart rate remains in the 130s without symptoms. He has been weaned off Vidal-Synephrine. He remains on amiodarone and heparin drip
Physical exam unchanged
He has mild bibasilar crackles
Upper extremity PICC line in place
Data reviewed
Creatinine improved from 1.6, now down to 1.1
Blood sugars improved, off insulin drip
Remains off beta-da, Lasix therapy
Remains on ceftriaxone
A/P
At this time, patient appears to be improved overall from a hemodynamic standpoint. Despite tachycardia, pressors have been weaned off
Wonder if this is a sign of possible underlying infectious process. Patient remains on ceftriaxone for abnormal urinalysis, cultures pending
Guzman catheter remains in place
Amiodarone therapy continues, tachycardia noted
Continue with cardiology recommendations
May require initiation of beta-da therapy
Heparin therapy continues
Patient is not deemed adequate surgical candidate at this time
Blood sugars improved
Farxiga stopped, diabetic nurse practitioner following
Continues with heparin therapy for new onset rapid atrial flutter
Patient continues tobacco use. Ongoing discussion regarding tobacco cessation
Reviewed with critical care nursing, respiratory care, pharmacy
Reviewed with primary service
TCCT 31 min
Original Note:
Today's Communication / Plan
Recommendations
Follow hemoglobin
If bp remains good off pressors consider restarting metoprolol
Potentially downgrade today
Assessment
-
Assessment:
This is a 75 y/o male with pmhx of COPD, essential hypertension, ischemic cardiomyopathy vs heart failure with mildly reduced EF (40-45% initially, most recently 55% per 10/2023 Echo), insulin dependent diabetes mellitus, peptic ulcer disease who
presented to the ED on 07/15/2025 with 1 week of shortness of breath that had worsened two days prior to presentation found to have new atrial flutter, s/p left heart catheterization on 07/17, now with new DKA and hypotension not responsive to IV
fluid therapy.
Plan:
Hypotension, Suspected Shock
Essential Hypertension
Patient with high blood pressure at baseline with new hypotension following fall requiring pharmacological support due to non responsiveness to IV fluids
Initially on Levophed, then Phenylephrine up to 80, now off
HOLD metoprolol in setting of hypotension requiring Phenylephrine, may potentially restart today if BP remains stable to help with tachycardia
HOLD Enalapril in setting of hypotension requiring Phenylephrine.
Cardiology is following, will appreciate their insight into his case
Insulin Dependent Diabetes Mellitus
Diabetic Ketoacidosis
Was continued on NPH insulin in the ED, though it seems it may have been held when he was NPO for cardiac catheterization. Abruptly after his fall, his blood glucose increased and his bicarbonate decreased for overall anion gap of 22.
Started on insulin drip for presumed DKA on 07/17, stopped on 07/18
STOP Farxiga.
Diabetic nurse practitioner is following, will appreciate their insight into his case
Acute Kidney Injury-Resolved
Creatinine increased from baseline of 0.9-1.1 to 1.7 on 07/17/2025, now back to baseline
Guzman catheter ordered to monitor Is and Os
Will monitor
New Onset Paroxysmal Rapid Atrial Flutter
New diagnosis but recurrent several times during this admission
Tachycardia today
HOLD metoprolol in setting of hypotension requiring Phenylephrine, may potentially restart today if BP remains stable to help with tachycardia
Currently on Amiodarone
Continue Heparin
Cardiology is following, will appreciate their insight into his case
Acute Heart Failure with Mildly Reduced Ejection Fraction
Per TTE 07/17: LVEF 40%. Prior Echos show EF ranging from 40-55%.
Lasix 40mg IV BID on hold, Potentially restart today
Metoprolol, Enalapril and Dapagloflozin all on hold
Abnormal Troponin Elevation
Coronary Artery Disease
Hyperlipidemia
Patient has been free of chest pain
Troponin peaked at 2.0, now downtrending
S/p Cardiac catheterization on 07/17
Continue Atorvastatin 80mg daily, Heparin, Aspirin
History of Peptic Ulcer disease
History of GI bleed
Patient now 1 month out from event, decrease Protonix 40mg BID to once daily
Follow hemoglobin carefully, did decrease from 12 to 10.5 today, but no signs of bleed
Urinary Retention
Urinary Tract Infection
Patient self catheterizes once daily, does report going to the bathroom without catheterization during the day
Guzman catheter ordered to monitor Is and Os, placed 07/18
UA on 07/18 positive, pending cultures
Continue Ceftriaxone (Day 2 antibiotics today)
Continue Tamsulosin
Continue Finasteride
Tobacco Dependence
Continue Nicotine patch 21 mg
Subjective Dataa
Subjective Data
Date of Service:
Date of Service: July 19, 2025
Chief Complaint: Hematology Oncology Consultant Follow Up
Subjective:
Patient was resting comfortably in bed when I arrived. He is free of fevers, chills, cough, chest pain, shortness of breath, abdominal pain. He feels much better today than he did before. He is not sure when he was prescribed Farxiga, and who did
it, or when he last took it.
Review of Systems
General: Fever (Denies) and Chills (Denies)
Cardiopulmonary: Cough (Denies) and Chest Pain (Denies)
GI: Abdominal Pain (Denies)
Objective Data
Data Reviewed
Vital Signs / I&O / Oxygen:
Vital Signs
Temp Pulse Resp BP Pulse Ox
98.6 F 130 19 128/90 91
07/19/25 04:00 07/19/25 06:45 07/19/25 06:45 07/19/25 06:30 07/19/25 06:45
Intake and Output
07/18/25 07/19/25 07/20/25
06:59 06:59 06:59
Intake Total 1526.0 / 1774.5 3569.5 / 3569.5
Output Total 1100 / 1100 1713 / 1713
Balance 426.0 / 674.5 1856.5 / 1856.5
SaO2 91
Nasal Cannula flow liters per 92
minute
Physical Exam
General: Comfortable
HEENT: Normocephalic and Anicteric
Cardiovascular: S1-S2, Regular Rhythm and Other (Tachycardia (130s))
Respiratory: Crackles (Bilateral bases) and Rhonchi (Bilateral bases, L>R)
Neurology: Awake, Alert and Oriented
Skin: Warm, Dry and Good Color
Labs/Micro/Reports
Lab Data
07/19/25 03:59
07/19/25 03:59
Laboratory Results
07/18/25 07/18/25 07/18/25
06:00 08:11 15:21
PT Cancelled
INR Cancelled
APTT Cancelled 37.9 H 50.9 H
07/18/25 07/19/25
21:57 03:59
PT
INR
APTT 79.6 H 151.0 H*
[2025-07-19 07:52] LABS: Glucose - Point of Care 121 mg/dl (70-99)
--- NOTE | 2025-07-19 08:00 | PTCARENOTE ---
[facility]HS done with off going shift, assessment remains unchanged. Patient denies any pain, SOB, CP, or palpitations. Remains in A.Flutter HR 120-130s. Weak pedal pulses. Vidal-synephrine gtt remains OFF. On RA, lungs wheeze/rhonchi. Sp02 93-97%.
Encouraged deep breathing. Guzman draining clear yellow urine with some sediment. +bowel sounds. Encouraged to reposition self while in bed to prevent skin breakdown. Heels floated on pillow. Heparin and Amiodarone gtt infusing via RUE TL PICC.
Breakfast ordered. (Sravani) called and will be visiting today. Call soto and tray table within reach. Bed alarm set for safety. Informed pt of POC today, will continue to reinforce nursing interventions prior to implementation.
[2025-07-19] MEDS: FLOMAX 0.4 MG PO (08:07)
[2025-07-19] MEDS: PROTONIX 40 MG PO (08:07)
[2025-07-19] MEDS: ZETIA 10 MG PO (08:07)
[2025-07-19] MEDS: PROSCAR 5 MG PO (08:07)
[2025-07-19] MEDS: ASPIR LOW (ENTERIC COATED) 81 MG PO (08:07)
[2025-07-19] MEDS: CARAFATE SUSPENSION 1 GM PO ×4 (08:08→22:13)
[2025-07-19] MEDS: LANTUS 0.18 UNITS SC (08:10)
[2025-07-19] MEDS: NOVOLOG FLEXPEN-LOW RESISTANCE SC ×2 (08:25→12:13)
--- NOTE | 2025-07-19 08:40 | PN.DE.MGMTRT ---
Insulin Management
- -
07/19/2025 Diabetes Management Consult Follow up
Patient admitted 07/15 with c/o increasing SOB for past two days, found to be in A flutter, mild heart failure, acute hypoxic respiratory failure, possible non-ST elevation IL (Troponin peaked at 2). PMH: CAD, ischemic cardiomyopathy, heart
failure with mildly reduced ejection fraction, mild aortic stenosis, COPD, gastric ulcers, HH, GERD, daily alcohol use, tobacco abuse, hypertension, hyperlipidemia, CVA 01/2015 on Plavix, colon polyps, urinary retention requiring
self-catheterization, erectile Dysfunction, falls, pneumothorax and T1DM- was dx at 37 years old. Patient was inpatient 06/13 to 06/18 with acute change in mental status, encephalopathy. Prior to admission was taking NPH 26 units in AM and 16
units @ HS. A1C 8.4%, cr 1.1 eGFR >60.
Patient was found to be in DKA after fall 07/17, glucose 594. Transferred to ICU and insulin infusion - DKA protocol started.
Patient is awake alert and orient able to discuss diabetes care, at bedside and very supportive. States he was diagnosed with diabetes at age 37 type 1 diabetes requiring insulin. They both state he is followed by his primary doctor, Bobo,
for diabetes management. Today states that he did see the [employer] [facility] at [facility] and endocrine office just once. He has been on NPH and was recently ordered novolog but told only to take if glucose > 300. Discussed at length importance of
glucose control and action of lantus. He states he does not recall ever being on lantus but is agreeable to try.
07/18 Transitioned from insulin infusion to 18 units lantus daily with 2 units novolog ac and low corrective. Glucose pre dinner 189 HS 204. 3AM glucose 170.
07/19 Fasting glucose 121. Will continue current regimen lantus 18 in AM with novolog 2 units ac and low corrective. Patient admits appetite has been poor recently so will assess if appetite improves may require additional novolog AC. Patient
very morbid today, talking about his ashes and checking with financial person to be sure his is cared for. Discussed with patient benefits of being in the hospital for workup to improve his overall health, he seemed somewhat better at the end
of the conversation.
Discussed with nurse.
Will follow.
Diabetes History
- -
Type of Diabetes: 1
Pre-Admission Diabetes Regimen
07/18/25 07/18/25 07/18/25
08:11 09:35 10:32
Creatinine Cancelled Cancelled 1.4 H
07/18/25 07/18/25 07/18/25
12:00 16:00 20:00
Creatinine Cancelled Cancelled Cancelled
07/19/25
03:59
Creatinine 1.1
Lab Results
Hemoglobin A1c 8.4 % (4.0-5.9) H 07/16/25 07:38
Insulin Pump Settings
IP Diabetes Regimen
07/18/25 07/18/25 07/18/25
05:01 08:11 08:59
Glucose Cancelled
POC Glucose 247 H 216 H
07/18/25 07/18/25 07/18/25
09:35 10:19 10:32
Glucose Cancelled 160 H
POC Glucose 149 H
07/18/25 07/18/25 07/18/25
11:11 12:00 12:11
Glucose Cancelled
POC Glucose 157 H 140 H
07/18/25 07/18/25 07/18/25
12:57 14:02 16:00
Glucose Cancelled
POC Glucose 147 H 145 H
07/18/25 07/18/25 07/18/25
17:03 20:00 20:30
Glucose Cancelled
POC Glucose 189 H 204 H
07/19/25 07/19/25 07/19/25
03:06 03:59 07:41
Glucose 208 H
POC Glucose 170 H 121 H
Meal type: Lunch
Amount consumed: 50%
Patient Education
[2025-07-19] MEDS: NOVOLOG FLEXPEN 2 UNITS SC ×3 (08:43→17:19)
[2025-07-19 09:06] LABS: Glucose - Point of Care 113 mg/dl (70-99)
--- NOTE | 2025-07-19 09:09 | W.PN.HOSP.TC ---
Today's Communication/Plan
-
Wean vasopressors as able
Continue with diuretics as blood pressure permits
Await CT surgery input
Continue with IV ceftriaxone
Assessment / Plan
Assessment / Plan
HPI: 75-year-old male with a past medical history of COPD, cigarette nicotine dependency, HH, GERD, CVA, HTN, HL, GIB/PUD, and diabetes presents with a 1 week history of dyspnea with activity, and orthopnea. reports that it has gotten worse in
the last 2 days. EMS found him to be satting 88% on room air. Upon arrival to the ER, he was found to have rapid atrial flutter. He received 2 boluses of IV diltiazem, and is currently on a diltiazem drip. He is now in controlled atrial flutter.
He denies chest pain, denies palpitations. No fever, no vomiting. No black or bloody stools. Does report left upper quadrant abdominal pain.
#New onset rapid atrial flutter
Recurrent ; stable and RVR
Patient in mild heart failure. Mildly elevated filling pressures of 14 mmHg on cardiac cath noted. EF 40% .patient also hypotensive requiring vasopressors.
Currently on amiodarone drip.
Continue with IV heparin.
#Acute hypoxic respiratory insufficiency
#Acute heart failure with midrange EF
Continue Lasix 40 mg IV twice daily as the blood pressure tolerates. Off of Oxygen. Unable to get Lasix due to hypotension
On Farxiga and enalapril-Continue as blood pressure permits. Unable to cath and lap halle due to hypotension.
Did not tolerate Entresto in the past because of blood pressure
Trend creatinine, trend daily weights
#Probable non-ST elevation myocardial infarction
#Coronary artery disease-multivessel on cardiac cath 07/17
Troponin peaked at 2.0
Status post aspirin 324 mg x 1
Started aspirin 81 mg daily today
Consult cardiothoracic surgery due to multivessel nature of his CAD.
# Garbled speech with right facial droop suspicious for CVA
CT head yesterday showed no evidence of acute stroke. CT of head and neck showed no evidence of large vessel occlusion.
Reassumed IV heparin .
CHADSVASC 8 ( HTN, HF, DM,carotid dz, CVA, age)
Consider MRI of the brain. Neurology following
#Hypotension requiring vasopressors suggestive shock
Continue with the Vidal-Synephrine. Patient requiring lesser dose of Vidal-Synephrine.
Optimize heart rate control.
# ROSSY-possibly multifactorial. Patient self-catheterization at home and he was seen retention requiring straight cath. Prerenal is also possibility and also cardiorenal but with the rapid improvement suspect may be retention related. In view of
the critical nature of this illness as well Place a Guzman catheter and follow creatinine and output closely
Improved creatinine to 1.1
#Diabetes with poor control. Hemoglobin A1c 8.4
Diagnosed at 37 years old
Is on NPH insulin, 26 units in the morning, 16 units at night
# Possible DKA
Patient's blood sugars were high 07/17. pH was 7.12 with a bicarb of 11. Anion gap of 30 after correcting for sodium.
Anion gap closed. Acidosis resolved. Off of IV insulin drip.
Back on subcutaneous insulin and diet.
#Hyponatremia secondary to hyperglycemia
#Leukocytosis unclear if reactive. With positive pyuria will start on ceftriaxone and follow urine culture chest x-ray without any acute cardiopulmonary disease
#Urinary retention
Patient self catheterizes, continue finasteride
Improving leukocytosis. Continue with ceftriaxone
#History of peptic ulcer disease
#History of GI bleed
#Left upper quadrant abdominal pain
Continue Carafate, Protonix 40 mg twice daily
Monitor hemoglobin-stable
#Cigarette nicotine dependency
Smoking cessation counseling has been provided
Nicotine patch ordered
#Daily alcohol use
Drinks 2 beers a day. He declines drinking more than 2 beers on the light beers.
Advised to stop alcohol especially with newfound cardiomyopathy and cardiac issues.
#Essential hypertension
Continue enalapril
#Hyperlipidemia
Continue statin
DVT prophylaxis�Eliquis
Full code
Discussed with HYDROCHLORIC ACID OPERATOR
Total time spent on today's encounter was 52 minutes which included time spent in counseling the patient/family regarding diagnosis and treatment plan as listed above, goals of care, and symptom management. Case was discussed with nursing staff,
specialists, and care coordinators/case management. All labs and imaging personally reviewed by me. Remainder the time spent in detailed review of previous records, lab data, imaging, and other medical provider documentation.
Portions of this chart may have been created with voice recognition software. Occasional wrong word or 'sound alike' substitutions may have occurred due to the inherent limitations of voice recognition software.
Anticipated Discharge: > 48 hours
Subjective/Interval History
-
Date of Service: July 19, 2025
Patient sitting in his bed and having breakfast. Denies any nausea vomiting. Good appetite.
Denies any palpitations, chest pain or shortness of breath.
No headache or lightheadedness.
Denies fever or chills.
Objective Data
-
Labs:
Laboratory Results
07/18/25 07/19/25 07/19/25
21:57 03:59 11:45
WBC 12.2 H
Hgb 10.5 L
Hct 30.0 L
Plt Count 220
APTT 79.6 H 151.0 H* Pending
Sodium 132 L
Potassium 3.9
Chloride 103
Carbon Dioxide 26
BUN 34 H
Creatinine 1.1
Glucose 208 H
Calcium 8.2 L
Vital Signs:
Vital Signs
Temp Pulse Resp BP Pulse Ox
97.7 F 129 16 125/96 95
07/19/25 07:22 07/19/25 07:45 07/19/25 07:45 07/19/25 07:30 07/19/25 07:45
I&O
07/18/25 07/19/25 07/20/25
06:59 06:59 06:59
Intake Total 1526.0 / 1774.5 3569.5 / 3595.7 26.2 / 26.2
Output Total 1100 / 1100 1713 / 1788 75 / 75
Balance 426.0 / 674.5 1856.5 / 1807.7 -48.8 / -48.8
Physical Exam
-
General: No Apparent Distress
HEENT: Moist Mucous Membranes
Respiratory: Clear to Auscultation and Non Labored Respirations; Negative Accessory Resp Muscle Use
Cardiac: S1/S2, Irregular Rhythm and Tachycardic
GI: Soft and Nontender
Neuro: AO x 3
Psych: Calm
Data Reviewed
-
Labs: Labs Reviewed by me
--- NOTE | 2025-07-19 09:37 | PN.CDI ---
CDI
- -
CDI:
Physician Documentation Request
Admit Date: 07/15/25 09:10
Dear Doctor Black,
Patient presented with complaints of shortness of breath.
[facility] findings 'Right dominant circulation with dense calcification throughout the entire coronary tree, a PENSION AGENT of the mid/distal LAD with bridging collaterals to the apical vessel, a chronic total occlusion of the nondominant circumflex and its
proximal margin and an 80-90%, densely calcified lesion in the ostium of the RCA followed by a densely calcified 70% lesion in the mid vessel.'
CT surg consulted for consideration of surgical revascularization.
07/18 cardio note states 'Abnormal troponin elevation with multivessel CAD -Suspect type II UT from demand in the setting of rapid atrial flutter/fibrillation and shock'
07/19 hospitalist note 'Probable non-ST elevation myocardial infarction'
Could you please clarify the diagnosis related to the abnormal troponin elevation:
NSTEMI
Type II UT demand ischemia
Other
Use of terms such as suspected, likely, concern for, or probable (associated with a specific diagnosis that is being evaluated, monitored, or treated as if it exists) are acceptable and can be coded in the inpatient setting, when documented at the
time of discharge.
Thank you,
Shavonne Bailey RN, BSN
CDI Specialist
tiger text
Please use your independent medical judgment in providing your response.
[2025-07-19] MEDS: CORDARONE 259 MG IV (10:20)
[2025-07-19] MEDS: HEPARIN 25000 UNITS/250 ML IV (10:56)
--- NOTE | 2025-07-19 11:35 | W.PN.CD ---
Today's Communication / Plan
-
CT surgery has declined operative management.
Metoprolol 5 mg IV x1 now.
Metoprolol tartrate 25 mg BID starting this afternoon.
Discuss atrial flutter ablation with EP.
Ultimately plan for RCA PCI with plaque modification post ablation (shockwave, CSI, etc).
NPO after MN.
Impression / Plan
-
Impression/Plan: 75 y/o male with a history of tobacco abuse with COPD, presumed CAD (abnormal stress test) and ICMO/HFmEF (LVEF 40-45%), HTN, HLD, PUD/GIB and IDDM1 (since age 37) admitted with BEAR/orthopnea with hypoxic respiratory failure and
new atrial flutter, found to have elevated troponin. TTE showed mildly reduced EF. Cardiac catheterization showed multivessel CAD. Course has been complicated by stroke alert, DKA, and now shock.
Cuffer: Michael
#DKA
-On 07/17 evening developed hypotension not responsive to IV fluids. Started on Levophed which was then transition to phenylephrine for rapid AF. Transferred to ICU.
-Likely due to DKA.
-HCO3 has normalized. AG = 3.
-Glucose remains difficult to control.
#Stroke Alert
-Occurred after cardiac catheterization, but the patient has known HAYDER and atrial fibrillation/flutter.
-Neurologically stable.
-Treatment with heparin gtt, permissive hypertension.
#Atrial flutter/Atrial fibrillation
-New diagnosis, noted on recent monitor 07/13/25.
-Had converted to NSR but now back in atrial flutter with 2:1 conduction, HR ~ 130 bpm.
-Rate/rhythm control with IV amiodarone. We will restart metoprolol tartrate 5 mg IV now and 25 mg PO BID starting tonight. Other options will include digoxin load.
-We should consider inpatient atrial flutter ablation.
-CHADSVASC = 8 ( HTN, HF, DM,carotid dz, CVA (x2), age x2).
-Therapeutic anticoagulation with heparin gtt until decision regarding revascularization. buttermaker transition to apixaban.
#Abnormal troponin elevation with multivessel CAD
-Suspect type II TN from demand in the setting of rapid atrial flutter/fibrillation and shock. He denies chest pain. Troponin peaked at 2.0.
-[facility] 07/17/2025: PRE BILLING SPECIALIST mid LAD, PRE BILLING SPECIALIST proximal LCx, 80-90% ostial RCA, 70% mid RCA; LVEDP 14 mmHg at 60.8 kg
-CT surgery is declining surgical management due to severity of disease, lack of surgical targets and demonstrable mortality benefit.
-Continue heparin, aspirin, ezetimibe and statin. Goal LDL < 55.
-RCA lesions are the likely culprits, though it is not clear if this was true type II episode from rapid AF rather than acute plaque rupture.
-Plan for PCI with plaque modification (shockwave, CSI, etc). This may be done post atrial flutter ablation or even as an outpatient.
#HFmrEF
-Acute. TTE 07/17/2025: LVEF 40%, akinetic apex
-Echo from 05/2025 with EF of 50-55% with aneurysmal apex/septal wall, hypokinesis of the inferolateral wall.
-Patient had been off GDMT for unknown reasons at last OV ( fargixa, metoprolol, did not tolerate entresto in past b/c of BP).
-[facility] 07/17/2025: LVEDP 14 mmHg at 60.8 kg
-GDMT as hemodynamics will tolerate:
-Diuretics: HOLD for shock and normal LVEDP yest
-Beta da: Metoprolol tartrate 50 mg PO BID currently on hold.
-ACEI/ARB/ARNi: Enalapril 5 mg PO BID on hold for hypotension. Patient previously intolerant of sacubitril-valsartan.
-MRA: None.
-SGLT2i: Dapagloflozin 10 mg daily -- ON HOLD.
-ICD: Not currently indicated.
#HTN
-Chronic, stable.
-Enalapril recently increased as outpatient.
#Mild
-Chronic, stable.
#Carotid Disease:
-Chronic, stable.
-Bilateral disease on US - 50-69%.
-Follows with Dr. Guzman.
-Statin/risk factor modification.
#Alcohol Abuse
-Chronic. reports 6 drinks/daily.
Critical Care Time = 45 minutes.
Subjective/Interval History:
Overnight, patient has stabilized. No longer requiring pressors for BP support.
Amiodarone gtt started for rate control but HR remains ~ 130 bpm.
Weight is up 3 kg.
DATA:
Cardiac Catheterization, 07/17/2025:
CONCLUSIONS
1. Right dominant circulation with dense calcification throughout the entire coronary tree, a PRE BILLING SPECIALIST of the mid/distal LAD with bridging collaterals to the apical vessel, a chronic total occlusion of the nondominant circumflex and its proximal margin
and an 80-90%, densely calcified lesion in the ostium of the RCA followed by a densely calcified 70% lesion in the mid vessel.
2. Mildly elevated filling pressures (LVEDP = 14 mmHg at 60.8 kg).
3. Stenotic and calcified right radial artery with some discomfort placing a 6 Algerian radial sheath.
TTE, 07/17/2025:
SUMMARY
1. Limited follow up study. Patient in atrial flutter with rapid ventricular response.
2. Mild global hypokinesis with aneurysmal/akinetic apex. LVEF estimated at 40%.
3. Mild left atrial enlargement.
4. The cardiac valves were not fully evaluated.
5. Compared to echocardiographic study dated 06/10/2025 rapid atrial flutter replaces NSR. LVEF has fallen from 50-55% to 40%. Global hypokinesis is new. The apex is similar.
Head CT, 07/17/2025:
IMPRESSION:
No acute intracranial abnormalities.
Small old lacunar infarcts again seen in the bilateral basal ganglia and left thalamus.
Findings again seen compatible with diffuse cortical atrophy with nonspecific white matter changes as described above.
CTA Head/Neck, 07/17/2025:
IMPRESSION:
1. No large vessel occlusion, dissection, or aneurysms appreciated.
2. Heavily calcified carotid bulbs and proximal internal carotid arteries likely causing 50-69% luminal narrowing bilaterally.
3. Multilevel cervical spondylosis.
CT Chest, 07/17/2025:
IMPRESSION:
1. Trace right pleural effusion with irregular adjacent airspace opacities, most likely representing atelectasis and/or scarring.
2. Mild centrilobular emphysema within the upper lobes.
3. Normal caliber thoracic aorta with small amount of calcified plaque within the arch.
4. Chronic compression deformity of T7 vertebral body. Age-indeterminate mild compression deformities along the superior endplates of T2 and T3.
5. Bilateral intrarenal calculi.
Physical Exam
Vital Signs/Labs
Vital Signs
Temp Pulse Resp BP Pulse Ox
36.4 C 131 17 116/81 95
07/19/25 11:19 07/19/25 10:15 07/19/25 10:15 07/19/25 10:00 07/19/25 10:39
07/17/25 07/18/25 07/19/25
11:59 11:59 11:59
Actual Weight 60.923 kg 61.1 kg 64.1 kg
07/19/25 03:59
07/19/25 03:59
PT Cancelled 07/18/25 06:00
INR Cancelled 07/18/25 06:00
APTT 151.0 Sec (23.4-35.0) H* 07/19/25 03:59
Magnesium 2.3 mg/dl (1.6-2.3) 07/19/25 03:59
Triglycerides 63 mg/dl (10-149) 07/16/25 07:38
LDL Cholesterol, Calc 56 mg/dl 07/16/25 07:38
VLDL Cholesterol, Calc 12 mg/dl (0-30) 07/16/25 07:38
HDL Cholesterol 64 mg/dl 07/16/25 07:38
07/15/25
06:50
[id number] Pept 3770
LAB Results
07/16/25 07/18/25
16:15 04:04
Troponin I Cancelled 0.934 H*
Physical Exam
Constitutional: No acute distress and Comfortable
EENT: Anicteric and Moist mucous membranes
Cardiovascular: Rhythm & rate is regular (Atrial flutter 2:1 conduction on telemetry, HR ~ 130 bpm.), Pedal edema is absent, JVD pressure is normal, Rhythm/rate is irregular, S1S2 is normal and Murmur/rub/gallop absent
Respiratory: Respiratory effort normal, Lungs clear to auscul., Wheeze Absent, Crackles Absent and Rhonchi Absent
GI: Soft, Distention absent, Flat, Non tender and Normal bowel sounds
Neuro/Psych: AO x 3
Other: Cath Site (Right radial access site is C/D/I.)
Data Reviewed
-
Date of Service: July 19, 2025
Medical Decision Making: Reviewed Test Results, Independent Historian Assessment and Test Interpretation
EKG: Tracing Personally Visualized and interpreted and Report Reviewed by me
Echo: Tracing Personally Visualized and interpreted and Report Reviewed by me
X-Ray/CT/US/MRI/NUC/PET: Image Personally Visualized and interpreted and Report Reviewed by me
Medical Tests (PFT, Pathology etc): Image Personally Visualized and interpreted and Report Reviewed by me
Labs: Labs Reviewed by me
Old Records: Reviewed
--- NOTE | 2025-07-19 11:57 | W.PN.UPDATE ---
Update Note
Progress Note Update
Patient's case was discussed in depth with all three surgeons. He was deemed not a surgical candidate. Cardiology was made aware and patient and his were informed bedside. CT Surgery will sign off at this time. Thank you.
[2025-07-19 12:09] LABS: Glucose - Point of Care 124 mg/dl (70-99)
[2025-07-19] MEDS: ROCEPHIN 1000 MG IV (12:13)
[2025-07-19] MEDS: STERILE WATER FOR INJECTION 10 ML IV (12:13)
[2025-07-19 12:30] LABS: APTT 64.4 Sec (23.4-35.0)
[2025-07-19] MEDS: LOPRESSOR 5 MG IV (13:21)
--- NOTE | 2025-07-19 14:04 | W.PN.NEURO.1 ---
Addendum entered and electronically signed by Ernesto Callejas MD 07/19/25 20:19:
I have seen and examined the patient today along with the nurse practitioner Yanet Ziegler and I agree with her assessment and management plan. The following is my addendum.
The patient is a 75 years old male with new onset Afib who developed sudden onset of right sided facial droop and slurred speech which was noted when he came back to the room on 07/17/2025, after the heart catheterization and was profoundly
hypotensive, however, the patient was not a candidate for TNK as he was on therapeutic dose of intravenous heparin prior to the heart catheterization.
Today, the patient's neurologic status appears to be much improved.
The CT of the head did not show any acute intracranial abnormality.
The CTA of the head and neck did not show large vessel occlusion dissection or aneurysms. The proximal internal carotid arteries showed a 50 to 69% luminal narrowing bilaterally.
The patient is going to be on a stroke pathway.
The patient is on heparin drip and the plan is to transition to DOAC for long-term prevention of stroke given history of atrial fibrillation.
The patient is a waiting for cardiothoracic surgery input.
Continue atorvastatin 80 mg daily.
On neurologic examination, today, the patient is alert and is able to speak clearly, however he does have a right-sided facial droop. The patient has antigravity strength in bilateral upper and lower extremities.
The patient likely had a stroke involving the left hemisphere secondary to atrial fibrillation.
Will sign off. Please call if you have any question.`
Original Note:
Today's Communication / Plan
-
.
Neuro Assessment/Plan
Assessment
The patient is a 75 years old male with new onset Afib who developed sudden onset of right sided facial droop and slurred speech which was noted when he came back to the room after the heart catheterization and was profoundly hypotensive, however,
the patient was not a candidate for TNK as he was on therapeutic dose of intravenous heparin prior to the heart catheterization.
-CT head 07/18/25: No acute intracranial abnormalities. Small old lacunar infarcts again seen in the bilateral basal ganglia and left thalamus. Findings again seen compatible with diffuse cortical atrophy with nonspecific white matter changes
-CTA head/neck 07/17/25: No large vessel occlusion, dissection, or aneurysms appreciated. Heavily calcified carotid bulbs and proximal internal carotid arteries likely causing 50-69% luminal narrowing bilaterally. Multilevel cervical spondylosis.
-CT brain perfusion 07/17/25: CBF 0ml, Tmax 7ml.
-Carotid ultrasound 07/05/25: Right carotid: Calcified carotid bulb and internal carotid artery plaque. Based on velocity parameters, there is likely a 50-69% internal carotid artery stenosis. However, it is possible that this is an over-estimation
given that the peak systolic velocity parameters alone would be consistent with less than 50% stenosis.
Left carotid: Calcified carotid bulb and internal carotid artery plaque. Based on velocity parameters, there is likely a 50-69% internal carotid artery stenosis. However, it is possible that this is an over-estimation given that the peak systolic
velocity parameters alone would be consistent with less than 50% stenosis. Antegrade flow bilateral vertebral arteries.
I. Dyasthria and right facial drooping; etiology is likely a small ischemic infarct in the setting of Afib vs cerebral hypoperfusion in the setting of bilateral 50-69% ICA stenosis.
II. CT head imaging is suggestive of small old bilateral basal ganglia and left thalamic infarcts.
Plan
-Continue heparin drip, plan to transition to and continue on a DOAC termite treater helper for stroke prevention given Afib.
-Goal normotension, avoid hypotension. Ideally keep SBP>110.
-Do not see a role for MRI brain imaging at this time, results will not change the plan of care. Okay to pursue this testing if it is needed prior to cardiac surgery.
-LDL goal <70. LDL is 56. Continue atorvastatin 80mg and ezetimibe 10mg daily.
-Goal normoglycemia, hbA1c is 8.4.
-NIHSS and neurological checks per unit guidelines.
-Provide patient/family with a stroke education packet.
-PT/OT/ST evaluations.
-Follow-up with Neurology as an outpatient.
Neurology will sign off, please contact our Neurology service with any questions/concerns.
Subjective/Objective
Subjective Data
Date of Service: July 19, 2025
No acute events overnight. Patient's right facial drooping and dysarthria have improved significantly but are still present.
Objective Data
Vital Signs
Temp Pulse Resp BP Pulse Ox
97.6 F 131 22 111/75 96
07/19/25 11:19 07/19/25 13:21 07/19/25 12:15 07/19/25 13:21 07/19/25 12:15
Lab Results
07/19/25 03:59
07/19/25 03:59
PT Cancelled 07/18/25 06:00
INR Cancelled 07/18/25 06:00
APTT 64.4 Sec (23.4-35.0) H 07/19/25 12:10
Sodium 132 mmol/L (135-145) L 07/19/25 03:59
Potassium 3.9 mmol/L (3.5-5.1) 07/19/25 03:59
BUN 34 mg/dl (9-20) H 07/19/25 03:59
Glucose 208 mg/dl (70-99) H 07/19/25 03:59
Calcium 8.2 mg/dl (8.4-10.2) L 07/19/25 03:59
Phosphorus 4.8 mg/dl (2.5-4.5) H 07/18/25 04:04
Ank-I-Jgorwfdgyzz Pept 3770 pg/ml 07/15/25 06:50
LDL Cholesterol, Calc 56 mg/dl 07/16/25 07:38
Patient Allergies
No Known Allergies Allergy (Verified 06/18/25 19:43)
Review of Systems
-
History Source: Patient
Neuro: Negative Dizzy, Headache, Weakness, Numbness, Ataxia, Tremors or Speech Problem
Physical Exam
-
General: No Apparent Distress
Eyes: No Ptosis and PERRLA
HEENT: Normocephalic and Atraumatic
Neck: Full Range of Motion
Psych: Unremarkable
Extended Neurological Exam
Mood & Affect: Mood Unremarkable and Affect Unremarkable
Attention Span & Concentration: Awake, Alert and Interactive
Memory: Reduced
Tremor: Hand Tremor Absent and Head Tremor Absent
Involuntary Movement: None
Speech: Quantity Unremarkable, Rate of Production Unremarkable and Dysarthric
Cranial Nerve II: Left Eye: Pupillary Reactivity Unremarkable, Pupillary Size Unremarkable and Visual Jang Intact
Cranial Nerve II: Right Eye: Pupillary Reactivity Unremarkable, Pupillary Size Unremarkable and Visual Jang Intact
Cranial Nerves III, IV, : Extraocular Movement: Extraocular Movement Full in all Directions
Cranial Nerve VII: Facial Symmetry: Reduced (slight right facial drooping)
Cranial Nerve VIII: Hearing: Unremarkable Hearing to Normal Conversational Volume
Cranial Nerve XII: Tongue Protusion: Midline
Muscle Strength, Overall: Full Throughout
Pronator Drift: No Drift in Upper Extremities and No Drift in Lower Extremities
Touch Sensation: Double Simultaneous Stimulation Unremarkable
Coordination: Nlexxo-klwx-fsjpoq Testing Unremarkable
Modified Mobile Score (MRS)
-
Modified Mobile Scale (mRS): No significant disability. Able to carry out usual activities.
Score: 1
Data Reviewed
-
CT-A: Report Reviewed and Image Reviewed
CT-Perfusion: Report Reviewed and Image Reviewed
CT Head: Report Reviewed and Image Reviewed
Labs: Report Reviewed
Lipid Profile: Report Reviewed
HgbA1C: Report Reviewed
Reviewed with: Physician and Patient
Medications
-
Active Medications
Generic Name Dose Route Start Last Admin
Trade Name Freq PRN Reason Stop Dose Admin
Acetaminophen 650 mg 07/15/25 10:02
Acetaminophen 325 Mg Tablet PO 08/12/25 10:01
Q4HPRN PRN
pain or fever
Aspirin 81 mg 07/17/25 08:00 07/19/25 08:07
Aspirin 81 Mg (Enteric Coated) Tablet PO 08/14/25 07:59 81 mg
DAILY TRAN Administration
Atorvastatin Calcium 80 mg 07/15/25 18:00 07/18/25 18:06
Atorvastatin (Lipitor) 80 Mg Tablet PO 08/12/25 17:59 80 mg
QPM TRAN Administration
Ceftriaxone Sodium 1,000 mg 07/18/25 12:00 07/19/25 12:13
Ceftriaxone 1000 Mg / 10 Ml Vial IV 1,000 mg
Q24H TRAN Administration
Dextrose 12.5 grams 07/15/25 10:02
Dextrose 50% (0.5 Grams/Ml) 50 Ml Syringe IV 08/12/25 10:01
[id number] PRN
hypoglycemia
Protocol
Ezetimibe 10 mg 07/16/25 08:00 07/19/25 08:07
Ezetimibe (Zetia) 10 Mg Tablet PO 08/13/25 07:59 10 mg
DAILY TRAN Administration
Enalapril Maleate 5 mg 07/15/25 20:00 07/18/25 08:53
Enalapril 5 Mg Tablet PO 08/12/25 19:59 Not Given
On Hold: 07/18/25 08:30 BID TRAN
Finasteride 5 mg 07/15/25 11:00 07/19/25 08:07
Finasteride 5 Mg Tablet PO 08/12/25 10:59 5 mg
DAILY TRAN Administration
Furosemide 40 mg 07/15/25 16:00 07/18/25 10:18
Furosemide 40 Mg (10 Mg/Ml) 4 Ml Vial IV 08/12/25 15:59 Not Given
On Hold: 07/18/25 10:01 BID AT 0800,1600 TRAN
Glucagon 1 mg 07/15/25 10:02
Glucagon 1 Mg Vial IM 08/12/25 10:01
PRN PRN
hypoglycemia
Protocol
Heparin Sodium 25,000 units in 250 mls @ 0 mls/hr 07/16/25 20:00 07/19/25 10:56
Heparin 46780 Units/250 Ml IV 250 mls
PER PROTOCOL TRAN Administration
Protocol
Per Protocol
Amiodarone HCl 450 mg/ 259 mls @ 0 mls/hr 07/18/25 10:30 07/19/25 10:20
Dextrose IV 259 mls
PER PROTOCOL TRAN Administration
Protocol
Per Protocol
Phenylephrine HCl 100 mg/ 260 mls @ 0 mls/hr 07/18/25 11:00 07/18/25 11:24
Sodium Chloride IV 260 mls
PER PROTOCOL TRAN Administration
Protocol
Per Protocol
Insulin Glargine 18 units/ 0.18 mls @ 0 mls/hr 07/19/25 08:00 07/19/25 08:10
Device SC 08/16/25 07:59 0.18 mls
DAILY@0800 TRAN Administration
As Directed
Insulin Aspart 0 units 07/18/25 16:30 07/19/25 12:13
Insulin Aspart Low Resistance 300 Units/3 Ml Pen.Injctr SC 08/15/25 16:29 Not Given
AC TRAN
Protocol
Insulin Aspart 2 units 07/18/25 16:30 07/19/25 12:16
Insulin Aspart (Novolog) Flexpen SC 08/15/25 16:29 2 units
AC TRAN Administration
Metoprolol Tartrate 25 mg 07/19/25 20:00
Metoprolol 25 Mg Regular Release Tablet PO 08/16/25 19:59
BID TRAN
Nicotine 21 mg 07/18/25 11:00 07/19/25 08:07
Nicotine 21 Mg Patch TRANSDERM 08/15/25 10:59 Not Given
DAILY TRAN
Ondansetron HCl 4 mg 07/15/25 10:02 07/17/25 20:09
Ondansetron 4 Mg/2 Ml Vial IV 08/12/25 10:01 4 mg
Q6HPRN PRN Administration
NAUSEA/VOMITING
Pantoprazole Sodium 40 mg 07/18/25 11:00 07/19/25 08:07
Pantoprazole 40 Mg Delayed Release Tablet PO 08/15/25 10:59 40 mg
DAILY TRAN Administration
Sodium Chloride 0 flush 07/15/25 10:00
Sodium Chloride 0.9% (Flush) Syringe IV 08/12/25 09:59
PER PROTOCOL TRAN
Sterile Water 10 ml 07/18/25 12:00 07/19/25 12:13
Sterile Water For Injection 10 Ml Vial IV 08/15/25 11:59 10 ml
Q24H TRAN Administration
Sucralfate 1 gm 07/15/25 11:30 07/19/25 12:12
Sucralfate (Carafate) 1 Gm/10 Ml Cup PO 08/12/25 11:29 1 gm
ACHS TRAN Administration
Tamsulosin HCl 0.4 mg 07/16/25 08:00 07/19/25 08:07
Tamsulosin 0.4 Mg Capsule PO 08/13/25 07:59 0.4 mg
DAILY TRAN Administration
Home Medications
�Medication �Instructions �Recorded
clopidogrel 75 mg tablet 75 mg PO DAILY Blood Clot 05/26/23
Prevention/Tx
atorvastatin 80 mg tablet 80 mg PO QPM High Cholesterol 08/19/23
ezetimibe 10 mg tablet 10 mg PO DAILY High Cholesterol 01/21/24
tamsulosin 0.4 mg capsule 0.4 mg PO DAILY Urinary Issue 11/16/24
enalapril maleate 5 mg tablet 5 mg PO BID Blood Pressure 03/02/25
finasteride 5 mg tablet 5 mg PO DAILY BPH 03/02/25
insulin NPH isoph U-100 human 100 16 unit SC QHS Diabetes 03/02/25
unit/mL subcutaneous suspension
(Humulin N NPH U-100 Insulin
(isophane susp))
insulin NPH isoph U-100 human 100 26 unit SC DAILY Diabetes 03/02/25
unit/mL subcutaneous suspension
(Humulin N NPH U-100 Insulin
(isophane susp))
nifedipine 30 mg tablet,extended 30 mg PO DAILY #30 tabs 06/18/25
release
pantoprazole 40 mg tablet,delayed See Rx Instructions .Route 06/18/25
release .COMPLEX #90 tabs
sucralfate 100 mg/mL oral 1 g (10 mL) PO ACHS #1,000 mL 06/18/25
suspension
--- NOTE | 2025-07-19 14:08 | CM ---
Not a surgical candidate. Plan for RCA PCI with plaque modification post ablation on 07/20/25. NPO past 12M. IV/Amiodarone/Heparin/Lasix/Ceftriaxone. Bibasilar crackles. Guzman. Discharge POC: TBD. Awaiting therapy eval and rec. [facility] referral
previously forwarded.
[2025-07-19 17:13] LABS: Glucose - Point of Care 175 mg/dl (70-99)
[2025-07-19] MEDS: LIPITOR 80 MG PO (17:18)
[2025-07-19] MEDS: NOVOLOG FLEXPEN-LOW RESISTANCE 1 UNITS SC (17:19)
--- NOTE | 2025-07-19 17:28 | PTCARENOTE ---
Repositioned in the bed. Glucose 175, medicated per the MAR. Safe environment maintained.
[2025-07-19 19:11] LABS: APTT 94.3 Sec (23.4-35.0)
--- NOTE | 2025-07-19 20:30 | PTCARENOTE ---
Report called to receiving RN. Patient transported w/ belongings to room 2250.
[2025-07-19] MEDS: LOPRESSOR 25 MG PO (20:34)
--- NOTE | 2025-07-19 20:44 | PTCARENOTE ---
Received patient from ICU. A flutter on the monitor, HR in the 110s. NIHSS 2. Alert and oriented. Amio and Heparin running as per protocol, see documentation. NPO midnight. Bed alarm in place. No complaints from pt at this time, call soto within
reach.
[2025-07-19 22:08] LABS: Glucose - Point of Care 177 mg/dl (70-99)
[2025-07-20] VITALS (7 sets, daily range): BP systolic 101–144; BP diastolic 61–104; BMI 21.3
[2025-07-20] MEDS: CORDARONE 259 MG IV (00:30)
[2025-07-20 00:55] LABS: APTT 88.1 Sec (23.4-35.0)
[2025-07-20 03:21] LABS: Glucose - Point of Care 151 mg/dl (70-99)
[2025-07-20 04:01] LABS: Hematocrit 30.2 % (39.0-52.0); Hemoglobin 10.1 g/dL (13.0-18.0); Mean Corp Hgb Conc. 33.4 g/dL (33.0-37.0); Mean Corpuscular Volume 91.8 fL (80.0-94.0); Platelet Count 195 10^3/uL (130-400); Red Cell Dist. Width 13.4 % (11.5-14.5)
[2025-07-20 04:23] LABS: Blood Urea Nitrogen 24 mg/dl (9-20); Calcium 8.3 mg/dl (8.4-10.2); Carbon Dioxide 25 mmol/L (22-30); Chloride 105 mmol/L (98-107); Estimated Creatinine Clearance 59 ml/min; Glucose 147 mg/dl (70-99); Potassium 4.2 mmol/L (3.5-5.1); Sodium 132 mmol/L (135-145); eGFR > 60.00
--- NOTE | 2025-07-20 07:55 | W.PN.CD ---
Today's Communication / Plan
-
- AFlutter ablation today
Impression / Plan
-
Impression/Plan: 75 y/o male with a history of tobacco abuse with COPD, presumed CAD (abnormal stress test) and ICMO/HFmEF (LVEF 40-45%), HTN, HLD, PUD/GIB and IDDM1 (since age 37) admitted with BEAR/orthopnea with hypoxic respiratory failure and
new atrial flutter, found to have elevated troponin. TTE showed mildly reduced EF. Cardiac catheterization showed multivessel CAD. Course has been complicated by stroke alert, DKA, and now shock.
Advertising Designer: Michael
#Atrial flutter/Atrial fibrillation
-Currently in typical atrial lfutter.
-New diagnosis, noted on recent monitor 07/13/25.
-Had converted to NSR but now back in atrial flutter with 2:1 conduction, HR ~ 130 bpm.
-Rate/rhythm control with IV amiodarone. We will restart metoprolol tartrate 5 mg IV now and 25 mg PO BID starting tonight. Other options will include digoxin load.
-High risk ablation arslan withj ongoing demand ischemia
- Plan for inpatient atrial flutter ablation.
- DCCV is of little value as he is going back into this almost immediately.
-CHADSVASC = 8 ( HTN, HF, DM,carotid dz, CVA (x2), age x2).
-Therapeutic anticoagulation with heparin gtt until decision regarding revascularization. terminal gauger transition to apixaban.
#DKA
-On 07/17 evening developed hypotension not responsive to IV fluids. Started on Levophed which was then transition to phenylephrine for rapid AF. Transferred to ICU.
-Likely due to DKA.
-HCO3 has normalized. AG = 3.
-Glucose remains difficult to control.
#Stroke Alert
-Occurred after cardiac catheterization, but the patient has known HAYDER and atrial fibrillation/flutter.
-Neurologically stable.
-Treatment with heparin gtt, permissive hypertension.
#Abnormal troponin elevation with multivessel CAD
-Suspect type II IL from demand in the setting of rapid atrial flutter/fibrillation and shock. He denies chest pain. Troponin peaked at 2.0.
-[facility] 07/17/2025: PATIENT CASE MANAGER mid LAD, PATIENT CASE MANAGER proximal LCx, 80-90% ostial RCA, 70% mid RCA; LVEDP 14 mmHg at 60.8 kg
-CT surgery is declining surgical management due to severity of disease, lack of surgical targets and demonstrable mortality benefit.
-Continue heparin, aspirin, ezetimibe and statin. Goal LDL < 55.
-RCA lesions are the likely culprits, though it is not clear if this was true type II episode from rapid AF/FL rather than acute plaque rupture.
-Plan for PCI with plaque modification (shockwave, CSI, etc) after the flutter ablation.
#HFmrEF
-Acute. TTE 07/17/2025: LVEF 40%, akinetic apex
-Echo from 05/2025 with EF of 50-55% with aneurysmal apex/septal wall, hypokinesis of the inferolateral wall.
-Patient had been off GDMT for unknown reasons at last OV ( fargixa, metoprolol, did not tolerate entresto in past b/c of BP).
-[facility] 07/17/2025: LVEDP 14 mmHg at 60.8 kg
-GDMT as hemodynamics will tolerate:
-Diuretics: HOLD for shock and normal LVEDP yest
-Beta da: Metoprolol tartrate 50 mg PO BID currently on hold.
-ACEI/ARB/ARNi: Enalapril 5 mg PO BID on hold for hypotension. Patient previously intolerant of sacubitril-valsartan.
-MRA: None.
-SGLT2i: Dapagloflozin 10 mg daily -- ON HOLD.
-ICD: Not currently indicated.
#HTN
-Chronic, stable.
-Enalapril recently increased as outpatient.
#Mild
-Chronic, stable.
#Carotid Disease:
-Chronic, stable.
-Bilateral disease on US - 50-69%.
-Follows with Dr. Guzman.
-Statin/risk factor modification.
#Alcohol Abuse
-Chronic. reports 6 drinks/daily.
Critical Care Time = 45 minutes.
Subjective/Interval History:
Overnight, patient has stabilized. No longer requiring pressors for BP support.
Amiodarone gtt started for rate control but HR remains ~ 130 bpm.
Weight is up 3 kg.
DATA:
Cardiac Catheterization, 07/17/2025:
CONCLUSIONS
1. Right dominant circulation with dense calcification throughout the entire coronary tree, a PATIENT CASE MANAGER of the mid/distal LAD with bridging collaterals to the apical vessel, a chronic total occlusion of the nondominant circumflex and its proximal margin
and an 80-90%, densely calcified lesion in the ostium of the RCA followed by a densely calcified 70% lesion in the mid vessel.
2. Mildly elevated filling pressures (LVEDP = 14 mmHg at 60.8 kg).
3. Stenotic and calcified right radial artery with some discomfort placing a 6 [place] radial sheath.
TTE, 07/17/2025:
SUMMARY
1. Limited follow up study. Patient in atrial flutter with rapid ventricular response.
2. Mild global hypokinesis with aneurysmal/akinetic apex. LVEF estimated at 40%.
3. Mild left atrial enlargement.
4. The cardiac valves were not fully evaluated.
5. Compared to echocardiographic study dated 06/10/2025 rapid atrial flutter replaces NSR. LVEF has fallen from 50-55% to 40%. Global hypokinesis is new. The apex is similar.
Head CT, 07/17/2025:
IMPRESSION:
No acute intracranial abnormalities.
Small old lacunar infarcts again seen in the bilateral basal ganglia and left thalamus.
Findings again seen compatible with diffuse cortical atrophy with nonspecific white matter changes as described above.
CTA Head/Neck, 07/17/2025:
IMPRESSION:
1. No large vessel occlusion, dissection, or aneurysms appreciated.
2. Heavily calcified carotid bulbs and proximal internal carotid arteries likely causing 50-69% luminal narrowing bilaterally.
3. Multilevel cervical spondylosis.
CT Chest, 07/17/2025:
IMPRESSION:
1. Trace right pleural effusion with irregular adjacent airspace opacities, most likely representing atelectasis and/or scarring.
2. Mild centrilobular emphysema within the upper lobes.
3. Normal caliber thoracic aorta with small amount of calcified plaque within the arch.
4. Chronic compression deformity of T7 vertebral body. Age-indeterminate mild compression deformities along the superior endplates of T2 and T3.
5. Bilateral intrarenal calculi.
Physical Exam
Vital Signs/Labs
Vital Signs
Temp Pulse Resp BP Pulse Ox
98 F 126 20 101/61 87
07/20/25 07:44 07/20/25 05:15 07/20/25 07:44 07/20/25 03:11 07/20/25 07:44
07/19/25 07/20/25 07/21/25
06:59 06:59 06:59
Actual Weight 64.1 kg 65.3 kg
07/20/25 03:16
07/20/25 03:16
PT Cancelled 07/18/25 06:00
INR Cancelled 07/18/25 06:00
APTT 88.1 Sec (23.4-35.0) H 07/20/25 00:29
Magnesium 2.3 mg/dl (1.6-2.3) 07/19/25 03:59
Triglycerides 63 mg/dl (10-149) 07/16/25 07:38
LDL Cholesterol, Calc 56 mg/dl 07/16/25 07:38
VLDL Cholesterol, Calc 12 mg/dl (0-30) 07/16/25 07:38
HDL Cholesterol 64 mg/dl 07/16/25 07:38
07/15/25
06:50
Tcx-K-Srzwmmhpoiz Pept 3770
LAB Results
07/18/25
04:04
Troponin I 0.934 H*
Physical Exam
Constitutional: No acute distress and Comfortable
EENT: Anicteric and Moist mucous membranes
Cardiovascular: Rhythm & rate is regular, JVD present and Systolic murmur present
Respiratory: Respiratory effort normal and Crackles Present
GI: Soft and Distention absent
Neuro/Psych: Alert, Oriented and AO x 3
Other: Cath Site
Data Reviewed
-
Date of Service: July 20, 2025
Medical Decision Making: Reviewed Test Results, Test Interpretation and Review of Case with other Provider
EKG: Tracing Personally Visualized and interpreted
Echo: Report Reviewed by me
Labs: Labs Reviewed by me
Old Records: Reviewed
[2025-07-20 08:17] LABS: Glucose - Point of Care 176 mg/dl (70-99)
[2025-07-20] MEDS: FLOMAX 0.4 MG PO (08:20)
[2025-07-20] MEDS: CARAFATE SUSPENSION 1 GM PO ×3 (08:20→22:37)
[2025-07-20] MEDS: PROTONIX 40 MG PO (08:21)
[2025-07-20] MEDS: ZETIA 10 MG PO (08:21)
[2025-07-20] MEDS: PROSCAR 5 MG PO (08:21)
[2025-07-20] MEDS: ASPIR LOW (ENTERIC COATED) 81 MG PO (08:21)
[2025-07-20] MEDS: NOVOLOG FLEXPEN-LOW RESISTANCE 1 UNITS SC (08:56)
[2025-07-20] MEDS: NOVOLOG FLEXPEN SC ×2 (08:59→12:48)
[2025-07-20] MEDS: LOPRESSOR 25 MG PO ×2 (09:00→20:26)
--- NOTE | 2025-07-20 09:10 | PN.DE.MGMTRT ---
Insulin Management
- -
07/20/2025 Diabetes Management Consult Follow up
Patient admitted 07/15 with c/o increasing SOB for past two days, found to be in A flutter, mild heart failure, acute hypoxic respiratory failure, possible non-ST elevation HI (Troponin peaked at 2). PMH: CAD, ischemic cardiomyopathy, heart
failure with mildly reduced ejection fraction, mild aortic stenosis, COPD, gastric ulcers, HH, GERD, daily alcohol use, tobacco abuse, hypertension, hyperlipidemia, CVA 01/2015 on Plavix, colon polyps, urinary retention requiring
self-catheterization, erectile Dysfunction, falls, pneumothorax and T1DM- was dx at 37 years old. Patient was inpatient 06/13 to 06/18 with acute change in mental status, encephalopathy. Prior to admission was taking NPH 26 units in AM and 16
units @ HS. A1C 8.4%, cr 1.1 eGFR >60.
Patient was found to be in DKA after fall 07/17, glucose 594. Transferred to ICU and insulin infusion - DKA protocol started.
Patient is awake alert and orient able to discuss diabetes care, at bedside and very supportive. States he was diagnosed with diabetes at age 37 type 1 diabetes requiring insulin. They both state he is followed by his primary doctor, Bobo,
for diabetes management. Today states that he did see the AIDS NURSE at [facility] and endocrine office just once. He has been on NPH and was recently ordered novolog but told only to take if glucose > 300. Discussed at length importance of
glucose control and action of lantus. He states he does not recall ever being on lantus but is agreeable to try.
07/19 Fasting glucose 121. Will continue current regimen lantus 18 in AM with novolog 2 units ac and low corrective. Patient admits appetite has been poor recently so will assess if appetite improves may require additional novolog AC.
07/20 Fasting glucose 151. Yesterday glucose range 113 to 177. Patient NPO today for ablation. After procedure will continue current regimen: Lantus 18 units in AM with novolog 2 units AC and low corrective insulin. If appetite improves will
require increased AC novolog.
Discussed with nurse.
Will follow.
Diabetes History
- -
Type of Diabetes: 1
Pre-Admission Diabetes Regimen
07/20/25
03:16
Creatinine 1.0
Lab Results
Hemoglobin A1c 8.4 % (4.0-5.9) H 07/16/25 07:38
Insulin Pump Settings
IP Diabetes Regimen
07/19/25 07/19/25 07/19/25
12:06 17:12 22:04
Glucose
POC Glucose 124 H 175 H 177 H
07/20/25 07/20/25 07/20/25
03:16 03:20 08:15
Glucose 147 H
POC Glucose 151 H 176 H
Meal type: Dinner
Meal type: Lunch
Meal type: Breakfast
Amount consumed: 95%
Amount consumed: 80%
Amount consumed: 50%
Patient Education
[2025-07-20] MEDS: LANTUS SC (11:26)
[2025-07-20] MEDS: LANTUS 0.15 UNITS SC (11:26)
[2025-07-20 11:52] LABS: Glucose - Point of Care 230 mg/dl (70-99)
[2025-07-20] MEDS: NOVOLOG FLEXPEN-LOW RESISTANCE 2 UNITS SC (12:08)
[2025-07-20] MEDS: ROCEPHIN 1000 MG IV (12:09)
[2025-07-20] MEDS: ROCEPHIN IV (12:09)
[2025-07-20] MEDS: STERILE WATER FOR INJECTION 10 ML IV (12:10)
[2025-07-20] MEDS: CARAFATE SUSPENSION PO (12:48)
--- NOTE | 2025-07-20 12:50 | W.PN.UPDATE ---
Update Note
Progress Note Update
Went into see him ,just got picked up to [employer] for cardiac ablation.
Patient was seen by cardiology today and the note reviewed
Patient was also seen by neurology yesterday who signed off.
Reviewed the chart. Medications reviewed.
Change antibiotics from ceftriaxone to oral Augmentin. Enterococcus faecalis in the urine noted.
--- NOTE | 2025-07-20 13:57 | ITS.CL.ABL ---
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
Ablation
Procedure Report:
Atrial Flutter ablation:
Mr. Tripp is a very pleasant 75 yr old gentleman with multiple recurrence of atrial flutter presented for EP study and ablation.
Date of the Procedure:
07/20/2025
Indications:
Atrial flutter with RVR.
Pre-Operative Diagnosis:
Typical Atrial Flutter
Post-Operative Diagnosis:
Supra-ventricular tachycardia with Typical Atrial Flutter
Procedure Performed:
Atrial flutter ablation with cavo-tricuspid isthmus line block formation
Performing Physician:
Steven Lerma MD
Assistants:
EP staff
Anesthesia:
See anesthesia records
Detailed Description of the Procedure:
Written informed consent was obtained from the patient after a full explanation of the risks and benefits of the procedure including the risks of sedation and anesthesia.
The patient was brought to the electrophysiology laboratory in stable condition in fasting state. Continuous electrocardiographic and hemodynamic monitoring was initiated.
The initial rhythm was atria flutter.
The procedure site was meticulously prepared with surgical scrub and allowed to dry with no pooling. Sterile draping was applied to cover the procedure site. The image intensifier was draped with sterile bag and positioned over the patient.
After infusion of local anesthetic, vascular access was obtained under ultrasound guidance and sheaths were placed over guide wire as detailed below.
Sheath and Catheter Placement:
The following catheters / sheaths were placed
Sheaths:
? 8Fr in right femoral vein � upgraded to Agilis sheath
? 9Fr in the right femoral vein
Catheters:
? [employer] Thermocool STSF bidirectional - at locations of HRA, RV, CS and His.
? Decapolar catheter - at locations of CS
A 5000 units of heparin was given after the access was complete.
Tachycardia:
The tachycardia was studied in detail.� the cycle length was 250 msec. The entrainement from the CTI isthmus and the prox CS was in the flutter circuit. The distal CS was out of the circuit indicating right atrial flutter.
Electroanatomic mapping (EAM):
The right atrium was mapped in the tachycardia. The tachycardia was fast but hemodynamically stable and could be mapped. The obtained maps of the tachycardia and the electrograms were studied in detail. EAM showed counter clockwise typical atrial
flutter with cavo tricuspid isthmus dependence
Ablation # 1: Typical Atrial Flutter Ablation:
Radiofrequency ablation was performed using a 3.5mm, open irrigation, force-sensing bidirectional ablation catheter ([employer] STSF) in the cavotricuspid isthmus from the tricuspid annulus to the IVC ridge.
The flutter slowed and terminated into sinus rhythm once the CTI block was achieved.
Post ablation mapping was done:
Following observations were noted.
-Bidirectional block was confirmed across the CTI line with differential pacing.
-Double potentials were spaced greater than 95 msec apart.
-The conduction time across the CTI line from proximal CS pacing was 157 msec.
-EAM of the right atrium was obtained with coronary sinus pacing and showed a line of block at the CTI.
-The time interval just lateral to the ablation lesions was 157 msec and the lateral wall was 120 msec
- All these maneuvers confirmed the block at the CTI line.
- Post ablation HV interval was unchanged at 45 msec
The patient was observed in the EP lab for 15 minutes and the repeat study showed stable block at the CTI location and CTI conduction time was 160 msec.
Procedure End
Following the completion of the EP study, catheters were removed. The sheaths were removed and hemostasis achieved with figure of 8 suture and manual compression.
Estimated Blood loss:
<5 cc
Specimens Removed:
None.
Implants / Devices:
None
Urine output:
None
Packs / Drains/ Tubes:
None
Instrument / Sponge Count Correct:
Yes
Fluoro time:
0 - Flouroless
Complications of the Procedure:
None
Condition of Patient at Time of Transfer:
Hemodynamically stable with no neurological or vascular compromise.
Summary:
Successful SVT ablation with typical atrial flutter ablation with cavo-tricuspid isthmus line of block formation.
.
--- NOTE | 2025-07-20 14:45 | PTCARENOTE ---
Patient post ablation. Right groin site closed using figure 8 stitch. Right groin site dressing clean, dry, and intact. Patient remains supine on bedrest. On 2L of oxygen via nasal cannula. Vital signs stable. Patient denies any pain. Neuro
assessment unchanged. at bedside. Aware of plan of care. Call soto within reach.
[2025-07-20] MEDS: AUGMENTIN 875 MG/125 MG PO (15:15)
--- NOTE | 2025-07-20 15:33 | CM ---
Reviewed chart. Mr. Tripp was transferred to IVU. He was off the floor for an Ablation today. He is currently sleeping. Prior to admission he resides with his spouse in a two story home with two steps to enter. His bedroom and full bathroom
are on the first floor. Prior to admission he was independent with ambulation and adls. He has a rolling walker and shower chair at home. He has had [facility] in the past Will need to see his current fuctional level to see if he will have any
skilled care needs. Meducal work-up in progress. The discharge plan is to return home with his spouse and [facility] Services if indicated when medically stable.
[2025-07-20 18:06] LABS: Glucose - Point of Care 135 mg/dl (70-99)
[2025-07-20] MEDS: LIPITOR 80 MG PO (18:27)
[2025-07-20] MEDS: NOVOLOG FLEXPEN 2 UNITS SC (18:28)
[2025-07-20] MEDS: NOVOLOG FLEXPEN-LOW RESISTANCE SC (18:29)
[2025-07-20] MEDS: AUGMENTIN 875 MG/125 MG 1 TABLET PO (20:27)
[2025-07-20 22:05] LABS: Glucose - Point of Care 162 mg/dl (70-99)
[2025-07-21] VITALS (12 sets, daily range): BP systolic 104–148; BP diastolic 54–82; PULSE 46–58; O2SAT 96–99; BMI 21.2
[2025-07-21 03:38] LABS: Hematocrit 30.0 % (39.0-52.0); Hemoglobin 10.3 g/dL (13.0-18.0); Mean Corp Hgb Conc. 34.3 g/dL (33.0-37.0); Mean Corpuscular Volume 92.6 fL (80.0-94.0); Platelet Count 165 10^3/uL (130-400); Red Cell Dist. Width 13.5 % (11.5-14.5)
[2025-07-21 03:52] LABS: Blood Urea Nitrogen 22 mg/dl (9-20); Calcium 8.7 mg/dl (8.4-10.2); Carbon Dioxide 25 mmol/L (22-30); Chloride 105 mmol/L (98-107); Estimated Creatinine Clearance 59 ml/min; Glucose 156 mg/dl (70-99); Magnesium 2.0 mg/dl (1.6-2.3); Potassium 4.4 mmol/L (3.5-5.1); Sodium 131 mmol/L (135-145); eGFR > 60.00
--- NOTE | 2025-07-21 07:23 | W.PN.CD ---
Today's Communication / Plan
-
Therapeutic anticoagulation with enoxaparin.
NPO on 07/23/2025 at [place] for staged PCI of ostial RCA (possibly mRCA) on 07/24/2025.
Impression / Plan
-
Impression/Plan: 75 y/o male with a history of tobacco abuse with COPD, presumed CAD (abnormal stress test) and ICMO/HFmEF (LVEF 40-45%), HTN, HLD, PUD/GIB and IDDM1 (since age 37) admitted with BEAR/orthopnea with hypoxic respiratory failure and
new atrial flutter, found to have elevated troponin. TTE showed mildly reduced EF. Cardiac catheterization showed multivessel CAD. Course has been complicated by stroke alert, DKA, and now shock.
Reservations Sales Agent: Michael
#Atrial flutter/Atrial fibrillation
-Currently in typical atrial lfutter.
-New diagnosis, noted on recent monitor 07/13/25.
-Had converted to NSR but lapsed back in atrial flutter with 2:1 conduction, HR ~ 130 bpm.
-Rate control with metoprolol.
-CHADSVASC = 8 ( HTN, HF, DM,carotid dz, CVA (x2), age x2).
-Therapeutic anticoagulation with enoxaparin over the weekend. penitentiary transition to apixaban after revascularization.
#DKA
-On 07/17 evening developed hypotension not responsive to IV fluids. Started on Levophed which was then transition to phenylephrine for rapid AF. Transferred to ICU.
-Likely due to DKA.
-Resolved.
#Stroke Alert
-Occurred after cardiac catheterization, but the patient has known HAYDER and atrial fibrillation/flutter.
-Neurologically stable.
-Treatment with heparin gtt, permissive hypertension.
#Abnormal troponin elevation with multivessel CAD
-Suspect type II NJ from demand in the setting of rapid atrial flutter/fibrillation and shock. He denies chest pain. Troponin peaked at 2.0.
-[facility] 07/17/2025: REFERRAL MANAGEMENT LIAISON mid LAD, REFERRAL MANAGEMENT LIAISON proximal LCx, 80-90% ostial RCA, 70% mid RCA; LVEDP 14 mmHg at 60.[address] surgery is declining surgical management due to severity of disease, lack of surgical targets and demonstrable mortality benefit.
-Continue heparin, aspirin, ezetimibe and statin. Goal LDL < 55.
-RCA lesions are the likely culprits, though it is not clear if this was true type II episode from rapid AF/FL rather than acute plaque rupture.
-Plan for PCI with plaque modification (shockwave, CSI, etc) on 07/24/2025.
#HFmrEF
-Acute. TTE 07/17/2025: LVEF 40%, akinetic apex
-Echo from 05/2025 with EF of 50-55% with aneurysmal apex/septal wall, hypokinesis of the inferolateral wall.
-Patient had been off GDMT for unknown reasons at last OV ( fargixa, metoprolol, did not tolerate entresto in past b/c of BP).
-LHC 07/17/2025: LVEDP 14 mmHg at 60.8 kg
-GDMT as hemodynamics will tolerate:
-Diuretics: HOLD for shock and normal LVEDP.
-Beta da: Metoprolol tartrate 50 mg PO BID currently on hold.
-ACEI/ARB/ARNi: Enalapril 5 mg PO BID on hold for hypotension. Patient previously intolerant of sacubitril-valsartan.
-MRA: None.
-SGLT2i: Dapagloflozin 10 mg daily -- ON HOLD.
-ICD: Not currently indicated.
#HTN
-Chronic, stable.
-Enalapril recently increased as outpatient.
#Mild
-Chronic, stable.
#Carotid Disease:
-Chronic, stable.
-Bilateral disease on US - 50-69%.
-Follows with Dr. Guzman.
-Statin/risk factor modification.
#Alcohol Abuse
-Chronic. reports 6 drinks/daily.
Subjective/Interval History:
Weight up nearly 4 kg from baseline.
Aflutter ablation yesterday. EP reports immediate improvement in hemodynamics with taoist of hemodynamics.
DATA:
Cardiac Catheterization, 07/17/2025:
CONCLUSIONS
1. Right dominant circulation with dense calcification throughout the entire coronary tree, a REFERRAL MANAGEMENT LIAISON of the mid/distal LAD with bridging collaterals to the apical vessel, a chronic total occlusion of the nondominant circumflex and its proximal margin
and an 80-90%, densely calcified lesion in the ostium of the RCA followed by a densely calcified 70% lesion in the mid vessel.
2. Mildly elevated filling pressures (LVEDP = 14 mmHg at 60.8 kg).
3. Stenotic and calcified right radial artery with some discomfort placing a 6 Turkmen radial sheath.
TTE, 07/17/2025:
SUMMARY
1. Limited follow up study. Patient in atrial flutter with rapid ventricular response.
2. Mild global hypokinesis with aneurysmal/akinetic apex. LVEF estimated at 40%.
3. Mild left atrial enlargement.
4. The cardiac valves were not fully evaluated.
5. Compared to echocardiographic study dated 06/10/2025 rapid atrial flutter replaces NSR. LVEF has fallen from 50-55% to 40%. Global hypokinesis is new. The apex is similar.
Head CT, 07/17/2025:
IMPRESSION:
No acute intracranial abnormalities.
Small old lacunar infarcts again seen in the bilateral basal ganglia and left thalamus.
Findings again seen compatible with diffuse cortical atrophy with nonspecific white matter changes as described above.
CTA Head/Neck, 07/17/2025:
IMPRESSION:
1. No large vessel occlusion, dissection, or aneurysms appreciated.
2. Heavily calcified carotid bulbs and proximal internal carotid arteries likely causing 50-69% luminal narrowing bilaterally.
3. Multilevel cervical spondylosis.
CT Chest, 07/17/2025:
IMPRESSION:
1. Trace right pleural effusion with irregular adjacent airspace opacities, most likely representing atelectasis and/or scarring.
2. Mild centrilobular emphysema within the upper lobes.
3. Normal caliber thoracic aorta with small amount of calcified plaque within the arch.
4. Chronic compression deformity of T7 vertebral body. Age-indeterminate mild compression deformities along the superior endplates of T2 and T3.
5. Bilateral intrarenal calculi.
Physical Exam
Vital Signs/Labs
Vital Signs
Temp Pulse Resp BP Pulse Ox
36.5 C 65 22 117/68 93
07/21/25 07:10 07/21/25 07:10 07/21/25 07:10 07/20/25 22:34 07/21/25 07:10
07/19/25 07/20/25 07/21/25
11:59 11:59 11:59
Actual Weight 64.1 kg 65.3 kg 65 kg
07/21/25 03:12
07/21/25 03:12
PT Cancelled 07/18/25 06:00
INR Cancelled 07/18/25 06:00
APTT 88.1 Sec (23.4-35.0) H 07/20/25 00:29
Magnesium 2.0 mg/dl (1.6-2.3) 07/21/25 03:12
Triglycerides 63 mg/dl (10-149) 07/16/25 07:38
LDL Cholesterol, Calc 56 mg/dl 07/16/25 07:38
VLDL Cholesterol, Calc 12 mg/dl (0-30) 07/16/25 07:38
HDL Cholesterol 64 mg/dl 07/16/25 07:38
07/15/25
06:50
Any-X-Rvglgnwpzrx Pept 3770
Physical Exam
Constitutional: No acute distress and Comfortable
EENT: Anicteric and Moist mucous membranes
Cardiovascular: Rhythm & rate is regular, Pedal edema is absent, JVD pressure is normal, S1S2 is normal and Murmur/rub/gallop absent
Respiratory: Respiratory effort normal, Lungs clear to auscul., Wheeze Absent, Crackles Absent and Rhonchi Absent
GI: Soft, Distention absent, Flat, Non tender and Normal bowel sounds
Neuro/Psych: AO x 3
Other: Cath Site (Femoral access sites are C/D/I.)
Data Reviewed
-
Date of Service: July 21, 2025
Medical Decision Making: Reviewed Test Results, Independent Historian Assessment and Test Interpretation
EKG: Tracing Personally Visualized and interpreted and Report Reviewed by me
Echo: Tracing Personally Visualized and interpreted and Report Reviewed by me
X-Ray/CT/US/MRI/NUC/PET: Image Personally Visualized and interpreted and Report Reviewed by me
Medical Tests (PFT, Pathology etc): Image Personally Visualized and interpreted and Report Reviewed by me
Labs: Labs Reviewed by me
Old Records: Reviewed
--- NOTE | 2025-07-21 07:33 | PN.DE.MGMTRT ---
Insulin Management
- -
07/21/2025: Diabetes Management Follow up
Patient admitted 07/15 with c/o increasing SOB for past two days, found to be in A flutter, mild heart failure, acute hypoxic respiratory failure, possible non-ST elevation ID (Troponin peaked at 2).
PMH: CAD, ischemic cardiomyopathy, heart failure with mildly reduced ejection fraction, mild aortic stenosis, COPD, gastric ulcers, HH, GERD, daily alcohol use, tobacco abuse, hypertension, hyperlipidemia, CVA 01/2015 on Plavix, colon polyps,
urinary retention requiring self-catheterization, erectile Dysfunction, falls, pneumothorax and T1DM- was dx at 37 years old. Patient was inpatient 06/13 to 06/18 with acute change in mental status, encephalopathy. Prior to admission was taking NPH
26 units in AM and 16 units @ HS. A1C 8.4%, cr 1.1 eGFR >60.
States he was diagnosed with diabetes at age 37 type 1 diabetes requiring insulin. They both state he is followed by his primary doctor, [facility], for diabetes management. Today states that he did see the [facility] [employer] at [facility] just once. He has been on NPH and was recently ordered NovoLog but told only to take if glucose > 300. Discussed at length importance of glucose control and action of Lantus. He states he does not recall ever being on Lantus but is agreeable
to try.
On presentation to the ED he was found to be in DKA after fall 07/17, glucose 594. Transferred to ICU and insulin infusion - DKA protocol started.
Patient is awake alert and orient able to discuss diabetes care, at bedside and very supportive.
Reports ongoing poor appetite, he is NOT eating much off his tray.
07/20 glucose range 135 to 230. Fasting glucose 156 V, 163 POC today.
Will continue current regimen: Lantus 18 units in AM with NovoLog 2 units AC and low corrective insulin.
Will reassess insulin needs when appetite improves, he may require increased AC NovoLog.
Discussed with nurse. Will cont to follow.
Diabetes History
- -
Type of Diabetes: 1
Pre-Admission Diabetes Regimen
07/21/25
03:12
Creatinine 1.0
Lab Results
Hemoglobin A1c 8.4 % (4.0-5.9) H 07/16/25 07:38
Insulin Pump Settings
IP Diabetes Regimen
07/20/25 07/20/25 07/20/25
08:15 11:51 18:04
Glucose
POC Glucose 176 H 230 H 135 H
07/20/25 07/21/25
22:05 03:12
Glucose 156 H
POC Glucose 162 H
Patient Education
--- NOTE | 2025-07-21 07:33 | PTCARENOTE ---
Pt NSR on monitor, VSS. NIH 2. rt groin dsg DCI. Pt denies pain, SOB or any discomfort. Call soto within reach
[2025-07-21] MEDS: ASPIR LOW (ENTERIC COATED) 81 MG PO (07:40)
[2025-07-21] MEDS: PROSCAR 5 MG PO (07:41)
[2025-07-21] MEDS: PROTONIX 40 MG PO (07:41)
[2025-07-21] MEDS: ZETIA 10 MG PO (07:41)
[2025-07-21] MEDS: CARAFATE SUSPENSION 1 GM PO ×3 (07:41→16:37)
[2025-07-21] MEDS: LOPRESSOR 25 MG PO (07:41)
[2025-07-21] MEDS: AUGMENTIN 875 MG/125 MG 1 TABLET PO ×2 (07:41→20:27)
[2025-07-21] MEDS: FLOMAX 0.4 MG PO (07:41)
[2025-07-21 08:39] LABS: Glucose - Point of Care 163 mg/dl (70-99)
[2025-07-21] MEDS: NOVOLOG FLEXPEN-LOW RESISTANCE 1 UNITS SC (09:26)
[2025-07-21] MEDS: NOVOLOG FLEXPEN-LOW RESISTANCE 2 UNITS SC (09:27)
[2025-07-21] MEDS: NOVOLOG FLEXPEN 2 UNITS SC ×3 (09:29→17:22)
[2025-07-21] MEDS: LANTUS 0.18 UNITS SC (09:33)
[2025-07-21 12:02] LABS: Glucose - Point of Care 272 mg/dl (70-99)
[2025-07-21] MEDS: NOVOLOG FLEXPEN-LOW RESISTANCE 3 UNITS SC (12:08)
--- NOTE | 2025-07-21 13:23 | CM ---
Reviewed chart. Met with and Mrs. Tripp to review discharge plans. He states prior to admission he resides with his spouse in a two story home with one step to enter. He states he has a full flight of steps to get to bedroom/full bathroom.
He states he has a powder room on the first floor. He states prior to admission he was independent with ambulation and adls. He states he has a walker and single point cane at home but he is not using them. He states he has has [facility] and
he is agreeable to [facility] again if needed.Telephone call to [facility] to make the referral. Sent the referral. He states he has a prescription plan. Medical work-up in progress. The discharge plan is to return home with his
spouse and [facility] when medically stable.
--- NOTE | 2025-07-21 14:54 | W.PN.HOSP.TC ---
Today's Communication/Plan
-
Continue with anticoagulation per cardiology
Resume diuretics with improved blood pressure. Wean oxygen as able
Continue with GDMT medication as tolerates.
Cardiac cath and PCI on Thursday
Assessment / Plan
Assessment / Plan
HPI: 75-year-old male with a past medical history of COPD, cigarette nicotine dependency, HH, GERD, CVA, HTN, HL, GIB/PUD, and diabetes presents with a 1 week history of dyspnea with activity, and orthopnea. reports that it has gotten worse in
the last 2 days. EMS found him to be satting 88% on room air. Upon arrival to the ER, he was found to have rapid atrial flutter. He received 2 boluses of IV diltiazem, and is currently on a diltiazem drip. He is now in controlled atrial flutter.
He denies chest pain, denies palpitations. No fever, no vomiting. No black or bloody stools. Does report left upper quadrant abdominal pain.
#New onset rapid atrial flutter
Patient in mild heart failure. Mildly elevated filling pressures of 14 mmHg on cardiac cath noted. EF 40% .patient also hypotensive requiring vasopressors.
In sinus rhythm. Off of amnio drip . On beta-da
Cardiology planning to change anticoagulation from IV heparin to Lovenox
#Acute hypoxic respiratory insufficiency
#Acute heart failure with midrange EF
Continue Lasix 40 mg IV twice daily. Back on oxygen. Blood pressure improved.
On Farxiga and enalapril-Continue as blood pressure permits.
Did not tolerate Entresto in the past because of blood pressure
Trend creatinine, trend daily weights
#Probable non-ST elevation myocardial infarction
#Coronary artery disease-multivessel on cardiac cath 07/17
Troponin peaked at 2.0
Status post aspirin 324 mg x 1
Started aspirin 81 mg daily today
cardiothoracic surgery input regarding multivessel CAD noted-not a candidate for surgery.
Cardiology planning on PCI on Thursday
# Garbled speech with right facial droop suspicious for CVA
CT head yesterday showed no evidence of acute stroke. CT of head and neck showed no evidence of large vessel occlusion.
Reassumed IV heparin-getting switched to Lovenox.
CHADSVASC 8 ( HTN, HF, DM,carotid dz, CVA, age)
Neurology suspect stroke and advises to continue with anticoagulation.
#Hypotension requiring vasopressors suggestive shock
Off of vasopressors
# ROSSY-possibly multifactorial. Patient self-catheterization at home and he was seen retention requiring straight cath. Prerenal is also possibility and also cardiorenal but with the rapid improvement suspect may be retention related. In view of
the critical nature of this illness as well Place a Guzman catheter and follow creatinine and output closely
Improved creatinine to 1.0
#Diabetes with poor control. Hemoglobin A1c 8.4
Diagnosed at 37 years old
Is on NPH insulin, 26 units in the morning, 16 units at night
# Possible DKA
Patient's blood sugars were high 07/17. pH was 7.12 with a bicarb of 11. Anion gap of 30 after correcting for sodium.
Anion gap closed. Acidosis resolved. Off of IV insulin drip.
Back on subcutaneous insulin and diet.
#Hyponatremia -initially possibly secondary to hyperglycemia. With resolution of DKA and persistence of hyponatremia could be secondary to heart failure. Continue to follow.
#Leukocytosis unclear if reactive or secondary to UTI. Normalized
#Enterococcus faecalis UTI-continue with Augmentin
#Urinary retention
Patient self catheterizes, continue finasteride
#History of peptic ulcer disease
#History of GI bleed
#Left upper quadrant abdominal pain
Continue Carafate, Protonix 40 mg twice daily
Monitor hemoglobin-stable
#Cigarette nicotine dependency
Smoking cessation counseling has been provided
Nicotine patch ordered
#Daily alcohol use
Drinks 2 beers a day. He declines drinking more than 2 beers on the light beers.
Advised to stop alcohol especially with newfound cardiomyopathy and cardiac issues.
#Essential hypertension
Continue enalapril
#Hyperlipidemia
Continue statin
DVT prophylaxis�Eliquis
Full code
Discussed with IVU RN
Portions of this chart may have been created with voice recognition software. Occasional wrong word or 'sound alike' substitutions may have occurred due to the inherent limitations of voice recognition software.
Anticipated Discharge: > 48 hours
Subjective/Interval History
-
Date of Service: July 21, 2025
No chest pain
Denies shortness of breath. But patient is now new to oxygen.
No palpitation.
No nausea vomiting.
Denies fever chills.
Objective Data
-
Labs:
Laboratory Results
07/21/25
03:12
WBC 7.0
Hgb 10.3 L
Hct 30.0 L
Plt Count 165
Sodium 131 L
Potassium 4.4
Chloride 105
Carbon Dioxide 25
BUN 22 H
Creatinine 1.0
Glucose 156 H
Calcium 8.7
Vital Signs:
Vital Signs
Temp Pulse Resp BP Pulse Ox
98.0 F 57 16 116/62 100
07/21/25 11:35 07/21/25 11:35 07/21/25 11:35 07/21/25 10:34 07/21/25 11:35
I&O
07/20/25 07/21/25 07/22/25
06:59 06:59 06:59
Intake Total 613.8 / 613.8 240 / 240
Output Total 1335 / 1335 550 / 550
Balance -721.2 / -721.2 -310 / -310
Physical Exam
-
General: No Apparent Distress
Respiratory: Crackles (bibasal) and Non Labored Respirations; Negative Accessory Resp Muscle Use
Cardiac: Regular Rhythm and S1/S2; Negative Tachycardic
GI: Soft and Nontender
Neuro: AO x 3
Data Reviewed
-
Labs: Labs Reviewed by me
--- NOTE | 2025-07-21 15:50 | PTCARENOTE ---
Assumed care of pt, Ox3, right facial droop and slurred speech noted (pt's baseline). VSS, monitor showing SB, HR 50-60s. Lungs with scattered rhonchi, O2 intact, denies shortness of breath at present. Abdomen benign, hua draining clear yellow
urine. POC discussed with pt, resting comfortably in bed, call soto in reach.
[2025-07-21] MEDS: LASIX 40 MG IV (16:37)
[2025-07-21] MEDS: LIPITOR 80 MG PO (16:37)
[2025-07-21 17:16] LABS: Glucose - Point of Care 224 mg/dl (70-99)
[2025-07-21] MEDS: LOVENOX 60 MG SC (17:51)
[2025-07-21] MEDS: VASOTEC PO (20:29)
--- NOTE | 2025-07-21 21:01 | PTCARENOTE ---
This RN captured VS in pt worklist from dayshift, 1100 on.
[2025-07-21] MEDS: CARAFATE SUSPENSION PO ×2 (22:01→22:03)
[2025-07-21 22:07] LABS: Glucose - Point of Care 234 mg/dl (70-99)
[2025-07-22] VITALS (7 sets, daily range): BP systolic 97–145; BP diastolic 49–76; BMI 20.5
--- NOTE | 2025-07-22 00:06 | PTCARENOTE ---
Received pt at change of shift resting in bed. SB-SR on tele, HR 50's-60's. pt denies any CP or SOB at this time. R maryann RUSSO and R hazel site C/D/I. Fall risk precautions maintained, call soto on and audible. pt calls appropriately, call soto
within reach.
[2025-07-22 03:58] LABS: Hematocrit 31.6 % (39.0-52.0); Hemoglobin 10.6 g/dL (13.0-18.0); Mean Corp Hgb Conc. 33.5 g/dL (33.0-37.0); Mean Corpuscular Volume 94.9 fL (80.0-94.0); Platelet Count 171 10^3/uL (130-400); Red Cell Dist. Width 13.4 % (11.5-14.5)
[2025-07-22 04:18] LABS: Blood Urea Nitrogen 22 mg/dl (9-20); Calcium 8.8 mg/dl (8.4-10.2); Carbon Dioxide 30 mmol/L (22-30); Chloride 103 mmol/L (98-107); Estimated Creatinine Clearance 53 ml/min; Glucose 155 mg/dl (70-99); Potassium 4.1 mmol/L (3.5-5.1); Sodium 132 mmol/L (135-145); eGFR > 60.00
[2025-07-22] MEDS: LOVENOX 60 MG SC ×2 (05:59→17:09)
--- NOTE | 2025-07-22 07:46 | W.PN.CD ---
Today's Communication / Plan
-
Patient currently comfortable without complaints of chest discomfort. Remains in sinus rhythm.
Continue on aspirin and enoxaparin.
Possible complex PCI on Thursday as previously outlined by Dr. Barrett.
Note patient with mild focal swelling at radial cath site will check ultrasound
Impression / Plan
-
Impression/Plan: 75 y/o male with a history of tobacco abuse with COPD, presumed CAD (abnormal stress test) and ICMO/HFmEF (LVEF 40-45%), HTN, HLD, PUD/GIB and IDDM1 (since age 37) admitted with BEAR/orthopnea with hypoxic respiratory failure and
new atrial flutter, found to have elevated troponin. TTE showed mildly reduced EF. Cardiac catheterization showed multivessel CAD. Course has been complicated by stroke alert, DKA, and now shock.
Cue Worker: Michael
#Atrial flutter/Atrial fibrillation
- Atrial flutter ablation 07/20/2024
-New diagnosis, noted on recent monitor 07/13/25.
-Atrial flutter ablation 07/20/2024
- Remains in sinus rhythm..
-CHADSVASC = 8 ( HTN, HF, DM,carotid dz, CVA (x2), age x2).
-Therapeutic anticoagulation with enoxaparin over the weekend. terminal block assembler transition to apixaban after revascularization.
#DKA
-On 07/17 evening developed hypotension not responsive to IV fluids. Started on Levophed which was then transition to phenylephrine for rapid AF. Transferred to ICU.
-Likely due to DKA.
-Resolved.
#Stroke Alert
-Occurred after cardiac catheterization 07/17/2025. Patient had been noted to be hypotensive. Besides having catheterization patient also with known carotid artery disease and atrial fibrillation/atrial flutter. Patient seen by neurology
currently stable. -
Patient remains on anticoagulation
#Abnormal troponin elevation with multivessel CAD
-Suspect type II RI from demand in the setting of rapid atrial flutter/fibrillation and shock. He denies chest pain. Troponin peaked at 2.0.
-[facility] 07/17/2025: BUS AND SYS INTEGRATION SENIOR MANAGER mid LAD, BUS AND SYS INTEGRATION SENIOR MANAGER proximal LCx, 80-90% ostial RCA, 70% mid RCA; LVEDP 14 mmHg at 60.8 [address] surgery is declining surgical management due to severity of disease, lack of surgical targets and demonstrable mortality benefit.
-Continue heparin, aspirin, ezetimibe and statin. Goal LDL < 55.
-RCA lesions are the likely culprits, though it is not clear if this was true type II episode from rapid AF/FL rather than acute plaque rupture.
-Plan for PCI with plaque modification (shockwave, CSI, etc) on 07/24/2025.
#HFmrEF
-Acute. TTE 07/17/2025: LVEF 40%, akinetic apex
-Echo from 05/2025 with EF of 50-55% with aneurysmal apex/septal wall, hypokinesis of the inferolateral wall.
-Patient had been off GDMT for unknown reasons at last OV ( fargixa, metoprolol, did not tolerate entresto in past b/c of BP).
-[facility] 07/17/2025: LVEDP 14 mmHg at 60.8 kg
-GDMT as hemodynamics will tolerate:
-Diuretics: HOLD for shock and normal LVEDP.
-Beta da: Metoprolol tartrate 50 mg PO BID currently on hold.
-ACEI/ARB/ARNi: Enalapril 5 mg PO BID on hold for hypotension. Patient previously intolerant of sacubitril-valsartan.
-MRA: None.
-SGLT2i: Dapagloflozin 10 mg daily -- ON HOLD.
-ICD: Not currently indicated.
#HTN
-Chronic, stable.
-Enalapril recently increased as outpatient.
#Mild
-Chronic, stable.
#Carotid Disease:
-Chronic, stable.
-Bilateral disease on US - 50-69%.
-Follows with Dr. Guzman.
-Statin/risk factor modification.
#Alcohol Abuse
-Chronic. reports 6 drinks/daily.
Subjective/Interval History:
Weight up nearly 4 kg from baseline.
Aflutter ablation yesterday. EP reports immediate improvement in hemodynamics with druze of hemodynamics.
DATA:
Cardiac Catheterization, 07/17/2025:
CONCLUSIONS
1. Right dominant circulation with dense calcification throughout the entire coronary tree, a BUS AND SYS INTEGRATION SENIOR MANAGER of the mid/distal LAD with bridging collaterals to the apical vessel, a chronic total occlusion of the nondominant circumflex and its proximal margin
and an 80-90%, densely calcified lesion in the ostium of the RCA followed by a densely calcified 70% lesion in the mid vessel.
2. Mildly elevated filling pressures (LVEDP = 14 mmHg at 60.8 kg).
3. Stenotic and calcified right radial artery with some discomfort placing a 6 [place]bek radial sheath.
TTE, 07/17/2025:
SUMMARY
1. Limited follow up study. Patient in atrial flutter with rapid ventricular response.
2. Mild global hypokinesis with aneurysmal/akinetic apex. LVEF estimated at 40%.
3. Mild left atrial enlargement.
4. The cardiac valves were not fully evaluated.
5. Compared to echocardiographic study dated 06/10/2025 rapid atrial flutter replaces NSR. LVEF has fallen from 50-55% to 40%. Global hypokinesis is new. The apex is similar.
Head CT, 07/17/2025:
IMPRESSION:
No acute intracranial abnormalities.
Small old lacunar infarcts again seen in the bilateral basal ganglia and left thalamus.
Findings again seen compatible with diffuse cortical atrophy with nonspecific white matter changes as described above.
CTA Head/Neck, 07/17/2025:
IMPRESSION:
1. No large vessel occlusion, dissection, or aneurysms appreciated.
2. Heavily calcified carotid bulbs and proximal internal carotid arteries likely causing 50-69% luminal narrowing bilaterally.
3. Multilevel cervical spondylosis.
CT Chest, 07/17/2025:
IMPRESSION:
1. Trace right pleural effusion with irregular adjacent airspace opacities, most likely representing atelectasis and/or scarring.
2. Mild centrilobular emphysema within the upper lobes.
3. Normal caliber thoracic aorta with small amount of calcified plaque within the arch.
4. Chronic compression deformity of T7 vertebral body. Age-indeterminate mild compression deformities along the superior endplates of T2 and T3.
5. Bilateral intrarenal calculi.
Physical Exam
Vital Signs/Labs
Vital Signs
Temp Pulse Resp BP Pulse Ox
98.4 F 71 20 139/76 93
07/22/25 07:19 07/22/25 06:00 07/22/25 07:19 07/22/25 03:18 07/22/25 07:19
07/21/25 07/22/25 07/23/25
06:59 06:59 05:59
Actual Weight 65 kg 63 kg
07/22/25 03:27
07/22/25 03:27
PT Cancelled 07/18/25 06:00
INR Cancelled 07/18/25 06:00
APTT 88.1 Sec (23.4-35.0) H 07/20/25 00:29
Magnesium 2.0 mg/dl (1.6-2.3) 07/21/25 03:12
Triglycerides 63 mg/dl (10-149) 07/16/25 07:38
LDL Cholesterol, Calc 56 mg/dl 07/16/25 07:38
VLDL Cholesterol, Calc 12 mg/dl (0-30) 07/16/25 07:38
HDL Cholesterol 64 mg/dl 07/16/25 07:38
07/15/25
06:50
Ksv-[id number] Pept 3770
Physical Exam
Constitutional: No acute distress
Cardiovascular: Rhythm & rate is regular
Respiratory: Wheeze Absent and Rhonchi Absent
GI: Soft and Non tender
Neuro/Psych: Alert
Data Reviewed
-
Date of Service: July 22, 2025
Medical Decision Making: Reviewed Test Results
X-Ray/CT/US/MRI/NUC/PET: Report Reviewed by me
Medical Tests (PFT, Pathology etc): Report Reviewed by me
Labs: Labs Reviewed by me
[2025-07-22] MEDS: VASOTEC 5 MG PO (08:11)
[2025-07-22] MEDS: LASIX 40 MG IV ×2 (08:11→15:15)
[2025-07-22] MEDS: ASPIR LOW (ENTERIC COATED) 81 MG PO (08:12)
[2025-07-22] MEDS: AUGMENTIN 875 MG/125 MG 1 TABLET PO ×2 (08:12→19:58)
[2025-07-22] MEDS: FLOMAX 0.4 MG PO (08:12)
[2025-07-22] MEDS: PROTONIX 40 MG PO (08:12)
[2025-07-22] MEDS: TOPROL XL 12.5 MG PO (08:12)
[2025-07-22] MEDS: PROSCAR 5 MG PO (08:12)
[2025-07-22] MEDS: ZETIA 10 MG PO (08:12)
[2025-07-22] MEDS: CARAFATE SUSPENSION PO ×5 (08:22→22:30)
[2025-07-22 08:26] LABS: Glucose - Point of Care 144 mg/dl (70-99)
[2025-07-22] MEDS: LANTUS 0.18 UNITS SC (08:26)
[2025-07-22] MEDS: NOVOLOG FLEXPEN-LOW RESISTANCE SC (08:27)
[2025-07-22] MEDS: NOVOLOG FLEXPEN 2 UNITS SC ×3 (08:27→18:03)
--- NOTE | 2025-07-22 08:49 | PTCARENOTE ---
Assumed care of pt from night RN. AAOx3. NIHSS 1, mild slurring (see wroklist). NSR on tele, HR 60s. SpO2 93% on 1L nasal cannula. R groin dressing CDI. R radial ecchymotic and small amount of localized swelling noted. R radial pulse is palpable. US
of RUE ordered. Pt due to void by 1208. Condom cath placed per pt request. Assessment documented. Pt resting in bed call soto in reach.
--- NOTE | 2025-07-22 09:34 | W.PN.HOSP.TC ---
Addendum entered and electronically signed by Vivek Cleaning MD 07/22/25 16:26:
Suspected Type II DC demand ischemia sec to AFib than NSTEMI
Original Note:
Today's Communication/Plan
-
CW IV lasix
CW Lovenox
CW GDMT meds
PCI on Thursday
Assessment / Plan
Assessment / Plan
HPI: 75-year-old male with a past medical history of COPD, cigarette nicotine dependency, HH, GERD, CVA, HTN, HL, GIB/PUD, and diabetes presents with a 1 week history of dyspnea with activity, and orthopnea. reports that it has gotten worse in
the last 2 days. EMS found him to be satting 88% on room air. Upon arrival to the ER, he was found to have rapid atrial flutter. He received 2 boluses of IV diltiazem, and is currently on a diltiazem drip. He is now in controlled atrial flutter.
He denies chest pain, denies palpitations. No fever, no vomiting. No black or bloody stools. Does report left upper quadrant abdominal pain.
#New onset rapid atrial flutter
Patient was in mild heart failure. Mildly elevated filling pressures of 14 mmHg on cardiac cath noted. EF 40% .patient also hypotensive requiring vasopressors.
In sinus rhythm. Off of amnio drip . On beta-da
AC with Lovenox
Cardiology planning
#Acute hypoxic respiratory insufficiency
#Acute heart failure with midrange EF
Continue Lasix 40 mg IV twice daily. Back on oxygen -wean as able;currently on 1l.
On Farxiga and enalapril-Continue as blood pressure permits.
Did not tolerate Entresto in the past because of blood pressure
Trend creatinine, trend daily weights
#Non-ST elevation myocardial infarction
#Coronary artery disease-multivessel on cardiac cath 07/17
Troponin peaked at 2.0
Status post aspirin 324 mg x 1
Started aspirin 81 mg daily
cardiothoracic surgery input regarding multivessel CAD noted-not a candidate for surgery.
Cardiology planning on complx PCI on Thursday
# Garbled speech with right facial droop suspicious for CVA
CT head yesterday showed no evidence of acute stroke. CT of head and neck showed no evidence of large vessel occlusion.
Reassumed IV heparin-getting switched to Lovenox.
CHADSVASC 8 ( HTN, HF, DM,carotid dz, CVA, age)
Neurology suspect stroke and advises to continue with anticoagulation.
#Hypotension requiring vasopressors suggestive shock
Off of vasopressors
# ROSSY-possibly multifactorial. Patient self-catheterization at home and he was seen retention requiring straight cath. Prerenal is also possibility and also cardiorenal but with the rapid improvement suspect may be retention related. In view of
the critical nature of this illness as well Place a Guzman catheter and follow creatinine and output closely
Improved creatinine to 1.0
# Hyponatremia - hypervolemic with CHF
Follow on lasix
#Diabetes with poor control. Hemoglobin A1c 8.4
Diagnosed at 37 years old
Is on NPH insulin, 26 units in the morning, 16 units at night
# Possible DKA
Patient's blood sugars were high 07/17. pH was 7.12 with a bicarb of 11. Anion gap of 30 after correcting for sodium.
Anion gap closed. Acidosis resolved. Off of IV insulin drip.
Back on subcutaneous insulin and diet.
#Leukocytosis unclear if reactive or secondary to UTI. Normalized
#Enterococcus faecalis UTI-continue with Augmentin till 07/24
#Urinary retention
Patient self catheterizes, continue finasteride
#History of peptic ulcer disease
#History of GI bleed
#Left upper quadrant abdominal pain
Continue Carafate, Protonix 40 mg twice daily
Monitor hemoglobin-stable
#Cigarette nicotine dependency
Smoking cessation counseling has been provided
Nicotine patch ordered
#Daily alcohol use
Drinks 2 beers a day. He declines drinking more than 2 beers of the light beers.
Advised to stop alcohol especially with newfound cardiomyopathy and cardiac issues.
#Essential hypertension
Continue enalapril
#Hyperlipidemia
Continue statin
DVT prophylaxis�Eliquis
Full code
Portions of this chart may have been created with voice recognition software. Occasional wrong word or 'sound alike' substitutions may have occurred due to the inherent limitations of voice recognition software.
Anticipated Discharge: > 48 hours
Subjective/Interval History
-
Date of Service: July 22, 2025
Denies any chest pain or shortness of breath.
No nausea vomiting. Tolerating diet.
No fever or chills.
Objective Data
-
Labs:
Laboratory Results
07/22/25
03:27
WBC 6.7
Hgb 10.6 L
Hct 31.6 L
Plt Count 171
Sodium 132 L
Potassium 4.1
Chloride 103
Carbon Dioxide 30
BUN 22 H
Creatinine 1.1
Glucose 155 H
Calcium 8.8
Vital Signs:
Vital Signs
Temp Pulse Resp BP Pulse Ox
98.4 F 61 20 145/73 93
07/22/25 07:19 07/22/25 08:11 07/22/25 07:19 07/22/25 08:11 07/22/25 07:19
I&O
07/21/25 07/22/25 07/23/25
06:59 06:59 05:59
Intake Total 240 / 240 240 / 240
Output Total 550 / 550 1950 / 1950
Balance -310 / -310 -1710 / -1710
Physical Exam
-
General: Comfortable
Respiratory: Clear to Auscultation, Non Labored Respirations and Accessory Resp Muscle Use
Cardiac: Regular Rhythm and S1/S2; Negative Tachycardic
GI: Soft and Nontender
Musculoskeletal: No Edema
Neuro: AO x 3
Psych: Calm; Negative Confused
Data Reviewed
-
Labs: Labs Reviewed by me
[2025-07-22 12:04] LABS: Glucose - Point of Care 217 mg/dl (70-99)
[2025-07-22] MEDS: NOVOLOG FLEXPEN-LOW RESISTANCE 2 UNITS SC (12:54)
--- NOTE | 2025-07-22 14:07 | PTCARENOTE ---
Pt only able to void 100mL on own. PVR > 874mL. 16 Fr Guzman placed for outlet obstruction. 1050mL of clear yellow urine for initial output. Pt weaned from 1L nc to room air. Spo2 94% on room air. Assessment otherwise unchanged.
[2025-07-22 17:08] LABS: Glucose - Point of Care 333 mg/dl (70-99)
[2025-07-22] MEDS: LIPITOR 80 MG PO (17:09)
[2025-07-22] MEDS: NOVOLOG FLEXPEN-LOW RESISTANCE 4 UNITS SC (18:03)
[2025-07-22] MEDS: VASOTEC PO (20:00)
[2025-07-22 21:27] LABS: Glucose - Point of Care 316 mg/dl (70-99)
--- NOTE | 2025-07-22 21:57 | PTCARENOTE ---
Pt rec'd at change of shift oob in chair, assist of 1 back to bed with rolling walker. harsh non productive cough. Sinus shruthi on telemetry.
B/p 98/49 at 8pm Vasotec held per parameter.
[2025-07-23] VITALS (7 sets, daily range): BP systolic 105–131; BP diastolic 49–66; BMI 19.9
[2025-07-23 05:10] LABS: Blood Urea Nitrogen 18 mg/dl (9-20); Calcium 8.6 mg/dl (8.4-10.2); Carbon Dioxide 30 mmol/L (22-30); Chloride 99 mmol/L (98-107); Estimated Creatinine Clearance 57 ml/min; Glucose 220 mg/dl (70-99); Potassium 3.6 mmol/L (3.5-5.1); Sodium 129 mmol/L (135-145); eGFR > 60.00
--- NOTE | 2025-07-23 07:37 | W.PN.CD ---
Today's Communication / Plan
-
Stable overnight.
Possible complex PCI on 07/24/2025. As previously outlined by Dr. Bull.
Patient denies symptoms right radial cath site with some additional swelling. Ultrasound ordered but has not been completed yet.
N.p.o. after midnight
Impression / Plan
-
Impression/Plan: 75 y/o male with a history of tobacco abuse with COPD, presumed CAD (abnormal stress test) and ICMO/HFmEF (LVEF 40-45%), HTN, HLD, PUD/GIB and IDDM1 (since age 37) admitted with BEAR/orthopnea with hypoxic respiratory failure and
new atrial flutter, found to have elevated troponin. TTE showed mildly reduced EF. Cardiac catheterization showed multivessel CAD. Course has been complicated by stroke alert, DKA, and now shock.
Blasting Entryman: Michael
#Atrial flutter/Atrial fibrillation
- Atrial flutter ablation 07/20/2024
-New diagnosis, noted on recent monitor 07/13/25.
-Atrial flutter ablation 07/20/2024
- Remains in sinus rhythm..
-CHADSVASC = 8 ( HTN, HF, DM,carotid dz, CVA (x2), age x2).
-Therapeutic anticoagulation with enoxaparin over the weekend. group home transition to apixaban after revascularization.
#DKA
-On 07/17 evening developed hypotension not responsive to IV fluids. Started on Levophed which was then transition to phenylephrine for rapid AF. Transferred to ICU.
-Likely due to DKA.
-Resolved.
#Stroke Alert
-Occurred after cardiac catheterization 07/17/2025. Patient had been noted to be hypotensive. Besides having catheterization patient also with known carotid artery disease and atrial fibrillation/atrial flutter. Patient seen by neurology
currently stable. -
Patient remains on anticoagulation
#Abnormal troponin elevation with multivessel CAD
-Suspect type II NE from demand in the setting of rapid atrial flutter/fibrillation and shock. He denies chest pain. Troponin peaked at 2.0.
-[facility] 07/17/2025: TOBACCO SORTER mid LAD, TOBACCO SORTER proximal LCx, 80-90% ostial RCA, 70% mid RCA; LVEDP 14 mmHg at 60.[address] surgery is declining surgical management due to severity of disease, lack of surgical targets and demonstrable mortality benefit.
-Continue heparin, aspirin, ezetimibe and statin. Goal LDL < 55.
-RCA lesions are the likely culprits, though it is not clear if this was true type II episode from rapid AF/FL rather than acute plaque rupture.
-Plan for PCI with plaque modification (shockwave, CSI, etc) on 07/24/2025.
#HFmrEF
-Acute. TTE 07/17/2025: LVEF 40%, akinetic apex
-Echo from 05/2025 with EF of 50-55% with aneurysmal apex/septal wall, hypokinesis of the inferolateral wall.
-Patient had been off GDMT for unknown reasons at last OV ( fargixa, metoprolol, did not tolerate entresto in past b/c of BP).
-[facility] 07/17/2025: LVEDP 14 mmHg at 60.8 kg
-GDMT as hemodynamics will tolerate:
-Diuretics: HOLD for shock and normal LVEDP.
-Beta da: Metoprolol tartrate 50 mg PO BID currently on hold.
-ACEI/ARB/ARNi: Enalapril 5 mg PO BID on hold for hypotension. Patient previously intolerant of sacubitril-valsartan.
-MRA: None.
-SGLT2i: Dapagloflozin 10 mg daily -- ON HOLD.
-ICD: Not currently indicated.
#HTN
-Chronic, stable.
-Enalapril recently increased as outpatient.
#Mild
-Chronic, stable.
#Carotid Disease:
-Chronic, stable.
-Bilateral disease on US - 50-69%.
-Follows with Dr. Guzman.
-Statin/risk factor modification.
#Alcohol Abuse
-Chronic. reports 6 drinks/daily.
Subjective/Interval History:
Weight up nearly 4 kg from baseline.
Aflutter ablation yesterday. EP reports immediate improvement in hemodynamics with yarsani of hemodynamics.
DATA:
Cardiac Catheterization, 07/17/2025:
CONCLUSIONS
1. Right dominant circulation with dense calcification throughout the entire coronary tree, a TOBACCO SORTER of the mid/distal LAD with bridging collaterals to the apical vessel, a chronic total occlusion of the nondominant circumflex and its proximal margin
and an 80-90%, densely calcified lesion in the ostium of the RCA followed by a densely calcified 70% lesion in the mid vessel.
2. Mildly elevated filling pressures (LVEDP = 14 mmHg at 60.8 kg).
3. Stenotic and calcified right radial artery with some discomfort placing a 6 Albanian radial sheath.
TTE, 07/17/2025:
SUMMARY
1. Limited follow up study. Patient in atrial flutter with rapid ventricular response.
2. Mild global hypokinesis with aneurysmal/akinetic apex. LVEF estimated at 40%.
3. Mild left atrial enlargement.
4. The cardiac valves were not fully evaluated.
5. Compared to echocardiographic study dated 06/10/2025 rapid atrial flutter replaces NSR. LVEF has fallen from 50-55% to 40%. Global hypokinesis is new. The apex is similar.
Head CT, 07/17/2025:
IMPRESSION:
No acute intracranial abnormalities.
Small old lacunar infarcts again seen in the bilateral basal ganglia and left thalamus.
Findings again seen compatible with diffuse cortical atrophy with nonspecific white matter changes as described above.
CTA Head/Neck, 07/17/2025:
IMPRESSION:
1. No large vessel occlusion, dissection, or aneurysms appreciated.
2. Heavily calcified carotid bulbs and proximal internal carotid arteries likely causing 50-69% luminal narrowing bilaterally.
3. Multilevel cervical spondylosis.
CT Chest, 07/17/2025:
IMPRESSION:
1. Trace right pleural effusion with irregular adjacent airspace opacities, most likely representing atelectasis and/or scarring.
2. Mild centrilobular emphysema within the upper lobes.
3. Normal caliber thoracic aorta with small amount of calcified plaque within the arch.
4. Chronic compression deformity of T7 vertebral body. Age-indeterminate mild compression deformities along the superior endplates of T2 and T3.
5. Bilateral intrarenal calculi.
Physical Exam
Vital Signs/Labs
Vital Signs
Temp Pulse Resp BP Pulse Ox
98.0 F 59 16 119/66 90
07/23/25 07:25 07/23/25 07:25 07/23/25 07:25 07/23/25 04:27 07/23/25 07:25
07/22/25 07/23/25 07/24/25
06:59 05:59 06:59
Actual Weight 63 kg
07/22/25 03:27
07/23/25 04:36
PT Cancelled 07/18/25 06:00
INR Cancelled 07/18/25 06:00
APTT 88.1 Sec (23.4-35.0) H 07/20/25 00:29
Magnesium 2.0 mg/dl (1.6-2.3) 07/21/25 03:12
Triglycerides 63 mg/dl (10-149) 07/16/25 07:38
LDL Cholesterol, Calc 56 mg/dl 07/16/25 07:38
VLDL Cholesterol, Calc 12 mg/dl (0-30) 07/16/25 07:38
HDL Cholesterol 64 mg/dl 07/16/25 07:38
07/15/25
06:50
Faq-V-Acxrylkhwto Pept 3770
Physical Exam
Constitutional: No acute distress
Cardiovascular: Rhythm & rate is regular
Respiratory: Wheeze Absent and Rhonchi Absent
GI: Soft and Non tender
Neuro/Psych: Alert and Oriented
Other: Other (Some prominence focal swelling at right radial cath site .)
Data Reviewed
-
Date of Service: July 23, 2025
Medical Decision Making: Reviewed Test Results
Echo: Report Reviewed by me
Medical Tests (PFT, Pathology etc): Report Reviewed by me
Labs: Labs Reviewed by me
[2025-07-23] MEDS: VASOTEC 5 MG PO (08:01)
[2025-07-23] MEDS: CARAFATE SUSPENSION PO ×4 (08:01→22:18)
[2025-07-23] MEDS: PROSCAR 5 MG PO (08:02)
[2025-07-23] MEDS: PROTONIX 40 MG PO (08:02)
[2025-07-23] MEDS: LASIX 40 MG IV (08:02)
[2025-07-23] MEDS: LOVENOX 60 MG SC ×2 (08:02→17:57)
[2025-07-23] MEDS: AUGMENTIN 875 MG/125 MG 1 TABLET PO ×2 (08:03→20:07)
[2025-07-23] MEDS: FLOMAX 0.4 MG PO (08:03)
[2025-07-23] MEDS: ZETIA 10 MG PO (08:03)
[2025-07-23] MEDS: ASPIR LOW (ENTERIC COATED) 81 MG PO (08:03)
[2025-07-23] MEDS: TOPROL XL 12.5 MG PO (08:04)
[2025-07-23 08:18] LABS: Glucose - Point of Care 268 mg/dl (70-99)
[2025-07-23] MEDS: NOVOLOG FLEXPEN 2 UNITS SC (08:18)
[2025-07-23] MEDS: NOVOLOG FLEXPEN-LOW RESISTANCE 3 UNITS SC ×2 (08:19→17:54)
[2025-07-23] MEDS: LANTUS 0.18 UNITS SC (08:21)
--- NOTE | 2025-07-23 11:28 | W.PN.HOSP.TC ---
Today's Communication/Plan
-
Decrease the dose of Lasix to once a day
Increase nutritional insulin to 4 units AC
PCI tomorrow.
Assessment / Plan
Assessment / Plan
HPI: 75-year-old male with a past medical history of COPD, cigarette nicotine dependency, HH, GERD, CVA, HTN, HL, GIB/PUD, and diabetes presents with a 1 week history of dyspnea with activity, and orthopnea. reports that it has gotten worse in
the last 2 days. EMS found him to be satting 88% on room air. Upon arrival to the ER, he was found to have rapid atrial flutter. He received 2 boluses of IV diltiazem, and is currently on a diltiazem drip. He is now in controlled atrial flutter.
He denies chest pain, denies palpitations. No fever, no vomiting. No black or bloody stools. Does report left upper quadrant abdominal pain.
#New onset rapid atrial flutter
Patient was in mild heart failure. Mildly elevated filling pressures of 14 mmHg on cardiac cath noted. EF 40% .patient also hypotensive requiring vasopressors.
Remains in sinus rhythm. Blood pressure stable. Off of amnio drip . On beta-da
AC with Lovenox
Cardiology planning
#Acute hypoxic respiratory insufficiency
#Acute heart failure with midrange EF
Continue Lasix 40 mg IV twice daily. Resolved hypoxia. Improved weight. Decrease Lasix to once a day.
On Farxiga and enalapril-Continue as blood pressure permits.
Did not tolerate Entresto in the past because of blood pressure
Trend creatinine, trend daily weights
#Non-ST elevation myocardial infarction
#Coronary artery disease-multivessel on cardiac cath 07/17
Troponin peaked at 2.0
Status post aspirin 324 mg x 1
Started aspirin 81 mg daily
cardiothoracic surgery input regarding multivessel CAD noted-not a candidate for surgery.
Cardiology planning on complx PCI on Thursday
# Garbled speech with right facial droop suspicious for CVA
CT head yesterday showed no evidence of acute stroke. CT of head and neck showed no evidence of large vessel occlusion.
Reassumed IV heparin-getting switched to Lovenox.
CHADSVASC 8 ( HTN, HF, DM,carotid dz, CVA, age)
Neurology suspect stroke and advises to continue with anticoagulation.
#Hypotension requiring vasopressors suggestive shock
Off of vasopressors
# ROSSY-possibly multifactorial. Patient self-catheterization at home and he was seen retention requiring straight cath. Prerenal is also possibility and also cardiorenal but with the rapid improvement suspect may be retention related. In view of
the critical nature of this illness as well Place a Guzman catheter and follow creatinine and output closely
Improved creatinine to 1.0
# Hyponatremia - hypervolemic with CHF
Follow on lasix
#Diabetes with poor control. Hemoglobin A1c 8.4
Diagnosed at 37 years old
Is on NPH insulin, 26 units in the morning, 16 units at night
# Possible DKA
Patient's blood sugars were high 07/17. pH was 7.12 with a bicarb of 11. Anion gap of 30 after correcting for sodium.
Anion gap closed. Acidosis resolved. Off of IV insulin drip.
Back on subcutaneous insulin and diet. Increase nutritional insulin to 4 units AC.
#Leukocytosis unclear if reactive or secondary to UTI. Normalized
#Enterococcus faecalis UTI-continue with Augmentin till 07/24
#Urinary retention
Patient self catheterizes, continue finasteride
#History of peptic ulcer disease
#History of GI bleed
#Left upper quadrant abdominal pain
Continue Carafate, Protonix 40 mg twice daily
Monitor hemoglobin-stable
#Cigarette nicotine dependency
Smoking cessation counseling has been provided
Nicotine patch ordered
#Daily alcohol use
Drinks 2 beers a day. He declines drinking more than 2 beers of the light beers.
Advised to stop alcohol especially with newfound cardiomyopathy and cardiac issues.
#Essential hypertension
Continue enalapril
#Hyperlipidemia
Continue statin
DVT prophylaxis�Eliquis
Full code
Portions of this chart may have been created with voice recognition software. Occasional wrong word or 'sound alike' substitutions may have occurred due to the inherent limitations of voice recognition software.
Anticipated Discharge: 24 - 48 hours
Subjective/Interval History
-
Date of Service: July 23, 2025
Feels better.
Denies shortness of breath. Off oxygen. No chest pain. No dizziness.
No nausea vomiting. Tolerating diet
Objective Data
-
Labs:
Laboratory Results
07/23/25
04:36
Sodium 129 L
Potassium 3.6
Chloride 99
Carbon Dioxide 30
BUN 18
Creatinine 1.0
Glucose 220 H
Calcium 8.6
Vital Signs:
Vital Signs
Temp Pulse Resp BP Pulse Ox
98.2 F 56 17 131/63 92
07/23/25 11:10 07/23/25 11:10 07/23/25 11:10 07/23/25 08:04 07/23/25 11:10
I&O
07/22/25 07/23/25 07/24/25
06:59 05:59 06:59
Intake Total 240 / 240 580 / 580
Output Total 1949 / 1949 2775 / 2775
Balance -1710 / -1710 -2195 / -2195
Physical Exam
-
General: No Apparent Distress
HEENT: Moist Mucous Membranes
Respiratory: Clear to Auscultation and Non Labored Respirations; Negative Accessory Resp Muscle Use
Cardiac: Regular Rhythm and S1/S2; Negative Tachycardic
GI: Soft
Neuro: AO x 3
Psych: Calm; Negative Confused
Data Reviewed
-
Labs: Labs Reviewed by me
[2025-07-23 12:37] LABS: Glucose - Point of Care 310 mg/dl (70-99)
[2025-07-23] MEDS: NOVOLOG FLEXPEN-LOW RESISTANCE 4 UNITS SC (12:38)
[2025-07-23] MEDS: NOVOLOG FLEXPEN 4 UNITS SC ×2 (12:38→17:55)
[2025-07-23 17:40] LABS: Glucose - Point of Care 291 mg/dl (70-99)
[2025-07-23] MEDS: LIPITOR 80 MG PO (17:57)
--- NOTE | 2025-07-23 19:22 | PTCARENOTE ---
~[id number]: Handoff report received form nightshift RN. Pt AOx4, SB/NSR 50s-60s on tele, +murumur noted, SBP 130s. RA satting 90%, lungs diminished, occassional moist cough noted. Patient denies pain at this time. Guzman intact and draining yellow
urine, I/Os charted. NIHSS 2 for slight R facial droop and slight slurred speech. R groin site CDI and soft, R radial site DX BOARD OPERATOR eccymotic with a little 'bubble' above puncture site, but site is soft. Called US to see if the US order for the R radial
site could be completed, per US, 'vascular does that US and they are not in house on the weekend.' Dr. Saravia made aware. +2/doppler pulses, no edema noted. All needs met at this time, call soto within reach.
~[id number]: family in to visit patient. Guzman care provided. Pt OOB with Ax1 to chair and weight obtained. I/Os charted. All needs met at this time, call soto within reach.
~[id number]: Patient OOB in chair, tolerated. AX1 back to bed. Bed/chair alarm in place for safety. VSS. Patient denies pain at this time. R radial site has no change, remains DX BOARD OPERATOR with the soft 'bubble.' US to be done tomorrow. All needs met at this
time, call soto within reach. Handoff report given to nightshift RN.
[2025-07-23] MEDS: VASOTEC PO (20:06)
[2025-07-23 22:14] LABS: Glucose - Point of Care 277 mg/dl (70-99)
[2025-07-24] VITALS (26 sets, daily range): BP systolic 63–137; BP diastolic 37–95
--- NOTE | 2025-07-24 00:51 | PTCARENOTE ---
assumed care of patient at the change of shift. AAOx3. patient states 'i just want to sleep.' NIH 2- unchanged. denies any cp/sob. SB 50s on tele. bp stable. Vasotec held per parameters. R radial site PARAMEDIC INSTRUCTOR/+ pulse. small lump at radial site. US in
for tomorrow. denies any pain at site. reviewed plan of care with patient and verbalized understanding. NPO at midnight. call soto within reach.
[2025-07-24 05:34] LABS: Blood Urea Nitrogen 18 mg/dl (9-20); Calcium 8.5 mg/dl (8.4-10.2); Carbon Dioxide 31 mmol/L (22-30); Chloride 99 mmol/L (98-107); Estimated Creatinine Clearance 55 ml/min; Glucose 151 mg/dl (70-99); Potassium 3.6 mmol/L (3.5-5.1); Sodium 132 mmol/L (135-145); eGFR > 60.00
[2025-07-24] MEDS: LOVENOX SC (06:45)
--- NOTE | 2025-07-24 07:23 | PN.DE.MGMTRT ---
Insulin Management
- -
07/24/2025: Diabetes Management Follow up
Patient admitted 07/15 with c/o increasing SOB for past two days, found to be in A flutter, mild heart failure, acute hypoxic respiratory failure, possible non-ST elevation ME (Troponin peaked at 2).
PMH: CAD, ICM, CHF w/ mildly reduced EF, mild , HTN, HLD, COPD, gastric ulcers, HH, GERD, daily alcohol use, tobacco abuse, CVA 01/2015 on Plavix, colon polyps, urinary retention requiring self-catheterization, erectile Dysfunction, falls,
pneumothorax and T1DM- was dx at 37 years old.
Patient was inpatient 06/13 to 06/18 with acute change in mental status, encephalopathy. Prior to admission was taking NPH 26 units in AM and 16 units @ HS. A1C 8.4%, cr 1.1 eGFR >60.
States he was diagnosed with type 1 diabetes requiring insulin at age 37. They both state he is followed by his primary doctor, Bobo, for diabetes management. Today states that he did see the TOWER CRANE OPERATOR at [facility]
just once. He has been on NPH and was recently ordered NovoLog but told only to take if glucose > 300. Discussed at length importance of glucose control and action of Lantus. He states he does not recall ever being on Lantus but is agreeable to
try.
He was found to be in DKA after fall 07/17, glucose 594. Transferred to ICU and insulin infusion - DKA protocol started and transitioned off on 07/18 to SQ insulin
Patient is awake alert and orient, sitting up in chair, able to discuss diabetes care, at bedside and very supportive.
He was made NPO this morning for PCI later today. States he wants to go home right after the procedure, explained that he will need to be cleared for discharge by his primary service team.
07/23 started on solid diet, premeal glucose trended up 268 to 310 yesterday, received 3-4 units of corrective insulin. AC NovoLog was increased to 4 units FBG 151 V, 163 POC today.
Will increase Lantus to 22 units in AM and NovoLog to 6 units AC to satrt after the procedure when diet has been resumed. Cont low corrective insulin.
Discussed with nurse. Will cont to follow.
07/24/25 Reviewed discharge medication with pt's as she seemed confused about the 2 different types of insulin patient will be taking after discharge
Instructed Pt's to discard the old NPH insulin that she has at home prior to patient being discharged so she doesn't get herself confused.
Diabetes History
- -
Type of Diabetes: 1
Pre-Admission Diabetes Regimen
07/24/25
04:40
Creatinine 1.0
Lab Results
Hemoglobin A1c 8.4 % (4.0-5.9) H 07/16/25 07:38
Insulin Pump Settings
IP Diabetes Regimen
07/23/25 07/23/25 07/23/25
08:17 12:37 17:39
Glucose
POC Glucose 268 H 310 H 291 H
07/23/25 07/24/25
22:11 04:40
Glucose 151 H
POC Glucose 277 H
Meal type: Breakfast
Meal type: Breakfast
Amount consumed: 100%
Amount consumed: 100%
Patient Education
--- NOTE | 2025-07-24 08:19 | W.PN.CD ---
Today's Communication / Plan
-
Plan for high risk PCI to the RCA today (+/- surgical backup).
Plan to transition to clopidogrel + apixaban post PCI.
We will re-measure LVEDP during PCI to adjust diuretics.
US of right radial artery.
Impression / Plan
-
Impression/Plan: 75 y/o male with a history of tobacco abuse with COPD, severe multivessel CAD with ICMO/HFmEF (LVEF 40-45%), HTN, HLD, PUD/GIB and IDDM1 (since age 37) admitted with BEAR/orthopnea with hypoxic respiratory failure and new atrial
flutter and elevated troponin, course complicated by DKA and shock, now s/p atrial flutter ablation and pending high risk PCI of RCA after CTS declined CABG.
Astronomy Department Chair: Michael
#Atrial flutter/Atrial fibrillation
-New diagnosis, noted on recent monitor (07/13/2025).
-Atrial flutter ablation 07/20/2024
-Remains in sinus rhythm.
-CHADSVASC = 8 (HTN, HF, DM,carotid dz, CVA (x2), age x2).
-Therapeutic anticoagulation with enoxaparin over the weekend. skilled nursing transition to apixaban after revascularization.
#Stroke Alert
-Occurred after cardiac catheterization 07/17/2025. Patient had been noted to be hypotensive. Besides having catheterization patient also with known carotid artery disease and atrial fibrillation/atrial flutter. Patient seen by neurology
currently stable.
-Patient remains on anticoagulation.
#Abnormal troponin elevation with multivessel CAD
-Suspect type II NE from demand in the setting of rapid atrial flutter/fibrillation and shock. He denies chest pain. Troponin peaked at 2.0.
-[facility] 07/17/2025: LIME MIXER TENDER mid LAD, LIME MIXER TENDER proximal LCx, 80-90% ostial RCA, 70% mid RCA; LVEDP 14 mmHg at 60.8 kg[address]
-CT surgery is declining surgical management due to severity of disease, lack of surgical targets and demonstrable mortality benefit but would potentially provide rescue.
-Continue heparin, aspirin, ezetimibe and statin. Goal LDL < 55.
-RCA lesions are the likely culprits, though it is not clear if this was true type II episode from rapid AF/FL rather than acute plaque rupture.
-Plan for PCI with plaque modification (shockwave, CSI, etc) with CTS backup.
-Right radial access site is mildly edematous. US ordered/pending.
#HFmrEF
-Acute. TTE 07/17/2025: LVEF 40%, akinetic apex
-Echo from 05/2025 with EF of 50-55% with aneurysmal apex/septal wall, hypokinesis of the inferolateral wall.
-LVEDP 14 mmHg at 60.8 kg.
-GDMT as hemodynamics will tolerate:
-Diuretics: Furosemide 40 mg PO daily.
-Beta da: Metoprolol succinate 12.5 mg daily.
-ACEI/ARB/ARNi: Enalapril 5 mg PO daily.
-MRA: None.
-SGLT2i: Dapagloflozin 10 mg daily -- ON HOLD.
-ICD: Not currently indicated.
#HTN
-Chronic, stable.
-Continue enalapril, metoprolol.
#Mild
-Chronic, stable.
#Carotid Disease:
-Chronic, stable.
-Bilateral disease on US - 50-69%.
-Follows with Dr. Guzman.
-Statin/risk factor modification.
#Alcohol Abuse
-Chronic. reports 6 drinks/daily.
Subjective/Interval History:
Weight at baseline.
No chest pain.
We discussed the patient's need for high risk PCI and need for back up and the extremely morbid course that would likely follow an emergent bypass without certainty of survival.
We discussed the option of high risk PCI without back up and accepting the percutaneous outcome regardless of complication.
Ultimately, the patient and would prefer complete support if it offered some chance of survival.
DATA:
Cardiac Catheterization, 07/17/2025:
CONCLUSIONS
1. Right dominant circulation with dense calcification throughout the entire coronary tree, a LIME MIXER TENDER of the mid/distal LAD with bridging collaterals to the apical vessel, a chronic total occlusion of the nondominant circumflex and its proximal margin
and an 80-90%, densely calcified lesion in the ostium of the RCA followed by a densely calcified 70% lesion in the mid vessel.
2. Mildly elevated filling pressures (LVEDP = 14 mmHg at 60.8 kg).
3. Stenotic and calcified right radial artery with some discomfort placing a 6 [place] radial sheath.
TTE, 07/17/2025:
SUMMARY
1. Limited follow up study. Patient in atrial flutter with rapid ventricular response.
2. Mild global hypokinesis with aneurysmal/akinetic apex. LVEF estimated at 40%.
3. Mild left atrial enlargement.
4. The cardiac valves were not fully evaluated.
5. Compared to echocardiographic study dated 06/10/2025 rapid atrial flutter replaces NSR. LVEF has fallen from 50-55% to 40%. Global hypokinesis is new. The apex is similar.
Head CT, 07/17/2025:
IMPRESSION:
No acute intracranial abnormalities.
Small old lacunar infarcts again seen in the bilateral basal ganglia and left thalamus.
Findings again seen compatible with diffuse cortical atrophy with nonspecific white matter changes as described above.
CTA Head/Neck, 07/17/2025:
IMPRESSION:
1. No large vessel occlusion, dissection, or aneurysms appreciated.
2. Heavily calcified carotid bulbs and proximal internal carotid arteries likely causing 50-69% luminal narrowing bilaterally.
3. Multilevel cervical spondylosis.
CT Chest, 07/17/2025:
IMPRESSION:
1. Trace right pleural effusion with irregular adjacent airspace opacities, most likely representing atelectasis and/or scarring.
2. Mild centrilobular emphysema within the upper lobes.
3. Normal caliber thoracic aorta with small amount of calcified plaque within the arch.
4. Chronic compression deformity of T7 vertebral body. Age-indeterminate mild compression deformities along the superior endplates of T2 and T3.
5. Bilateral intrarenal calculi.
EP/Ablation, 07/20/2025:
Summary:
Successful SVT ablation with typical atrial flutter ablation with cavo-tricuspid isthmus line of block formation.
Physical Exam
Vital Signs/Labs
Vital Signs
Temp Pulse Resp BP Pulse Ox
36.8 C 53 20 110/54 94
07/24/25 07:34 07/24/25 04:31 07/24/25 07:34 07/23/25 22:11 07/24/25 07:34
07/22/25 07/23/25 07/24/25
11:59 10:59 11:59
Actual Weight 63 kg 61.2 kg
07/22/25 03:27
07/24/25 04:40
PT Cancelled 07/18/25 06:00
INR Cancelled 07/18/25 06:00
APTT 88.1 Sec (23.4-35.0) H 07/20/25 00:29
Magnesium 2.0 mg/dl (1.6-2.3) 07/21/25 03:12
Triglycerides 63 mg/dl (10-149) 07/16/25 07:38
LDL Cholesterol, Calc 56 mg/dl 07/16/25 07:38
VLDL Cholesterol, Calc 12 mg/dl (0-30) 07/16/25 07:38
HDL Cholesterol 64 mg/dl 07/16/25 07:38
07/15/25
06:50
[id number] Pept 3770
Physical Exam
Constitutional: No acute distress and Comfortable
EENT: Anicteric and Moist mucous membranes
Cardiovascular: Rhythm & rate is regular, Pedal edema is absent, JVD pressure is normal, S1S2 is normal and Murmur/rub/gallop absent
Respiratory: Respiratory effort normal, Lungs clear to auscul., Wheeze Absent, Crackles Absent and Rhonchi Absent
GI: Soft, Distention absent, Flat, Non tender and Normal bowel sounds
Neuro/Psych: AO x 3
Other: Cath Site
Data Reviewed
-
Date of Service: July 24, 2025
Medical Decision Making: Reviewed Test Results, Independent Historian Assessment and Test Interpretation
EKG: Tracing Personally Visualized and interpreted and Report Reviewed by me
Echo: Tracing Personally Visualized and interpreted and Report Reviewed by me
X-Ray/CT/US/MRI/NUC/PET: Image Personally Visualized and interpreted and Report Reviewed by me
Medical Tests (PFT, Pathology etc): Image Personally Visualized and interpreted, Report Reviewed by me, Discussed with Physician, Discussed with Patient and Discussed with Family
Labs: Labs Reviewed by me
Old Records: Reviewed
[2025-07-24] MEDS: NOVOLOG FLEXPEN SC ×3 (08:31→19:25)
[2025-07-24] MEDS: LANTUS SC (08:31)
[2025-07-24] MEDS: CARAFATE SUSPENSION PO ×2 (08:31→12:28)
[2025-07-24] MEDS: AUGMENTIN 875 MG/125 MG 1 TABLET PO (08:38)
[2025-07-24] MEDS: FLOMAX 0.4 MG PO (08:38)
[2025-07-24] MEDS: ZETIA 10 MG PO (08:38)
[2025-07-24] MEDS: PROTONIX 40 MG PO (08:38)
[2025-07-24] MEDS: ASPIR LOW (ENTERIC COATED) 81 MG PO (08:38)
[2025-07-24] MEDS: TOPROL XL 12.5 MG PO (08:38)
[2025-07-24] MEDS: PROSCAR 5 MG PO (08:38)
[2025-07-24] MEDS: VASOTEC 5 MG PO (08:38)
[2025-07-24] MEDS: LASIX 40 MG IV (08:39)
[2025-07-24 09:10] LABS: Glucose - Point of Care 128 mg/dl (70-99)
[2025-07-24] MEDS: NOVOLOG FLEXPEN-LOW RESISTANCE SC ×3 (09:15→19:26)
[2025-07-24] MEDS: LANTUS 0.22 UNITS SC (09:16)
--- NOTE | 2025-07-24 09:22 | W.PN.HOSP.TC ---
Today's Communication/Plan
-
High risk PCI
Assessment / Plan
Assessment / Plan
Physical exam:
General: Well Developed, Well Nourished and No Apparent Distress
HEENT: Normocephalic, Atraumatic and Moist Mucous Membranes
Respiratory: Clear to Auscultation; Negative Wheezes, Rales or Rhonchi
Cardiac: Regular Rhythm and S1/S2
GI: Soft, Nontender and Nondistended
Musculoskeletal: No Clubbing, No Cyanosis and No Edema
Neuro: Awake, Alert and Oriented
Psych: Calm
A/P:
HPI: 75-year-old male with a past medical history of COPD, cigarette nicotine dependency, HH, GERD, CVA, HTN, HL, GIB/PUD, and diabetes presents with a 1 week history of dyspnea with activity, and orthopnea. reports that it has gotten worse in
the last 2 days. EMS found him to be satting 88% on room air. Upon arrival to the ER, he was found to have rapid atrial flutter. He received 2 boluses of IV diltiazem, and is currently on a diltiazem drip. He is now in controlled atrial flutter.
He denies chest pain, denies palpitations. No fever, no vomiting. No black or bloody stools. Does report left upper quadrant abdominal pain.
#New onset rapid atrial flutter
Patient was in mild heart failure. Mildly elevated filling pressures of 14 mmHg on cardiac cath noted. EF 40% .patient also hypotensive requiring vasopressors.
Remains in sinus rhythm. Blood pressure stable. Off of amnio drip . On beta-da
AC with Lovenox
Cardiology planning
#Acute hypoxic respiratory insufficiency
#Acute heart failure with midrange EF
Continue Lasix 40 mg IV twice daily. Resolved hypoxia. Improved weight. Decrease Lasix to once a day.
On Farxiga and enalapril-Continue as blood pressure permits.
Did not tolerate Entresto in the past because of blood pressure
Trend creatinine, trend daily weights
#Non-ST elevation myocardial infarction
#Coronary artery disease-multivessel on cardiac cath 07/17
Troponin peaked at 2.0
Status post aspirin 324 mg x 1
Started aspirin 81 mg daily
cardiothoracic surgery input regarding multivessel CAD noted-not a candidate for surgery.
Cardiology planning on complx PCI on Thursday
# Garbled speech with right facial droop suspicious for CVA
CT head yesterday showed no evidence of acute stroke. CT of head and neck showed no evidence of large vessel occlusion.
Reassumed IV heparin-getting switched to Lovenox.
CHADSVASC 8 ( HTN, HF, DM,carotid dz, CVA, age)
Neurology suspect stroke and advises to continue with anticoagulation.
#Hypotension requiring vasopressors suggestive shock
Off of vasopressors
# ROSSY-possibly multifactorial. Patient self-catheterization at home and he was seen retention requiring straight cath. Prerenal is also possibility and also cardiorenal but with the rapid improvement suspect may be retention related. In view of
the critical nature of this illness as well Place a Guzman catheter and follow creatinine and output closely
Improved creatinine to 1.0
# Hyponatremia - hypervolemic with CHF
Follow on lasix
#Diabetes with poor control. Hemoglobin A1c 8.4
Diagnosed at 37 years old
Is on NPH insulin, 26 units in the morning, 16 units at night
# Possible DKA
Patient's blood sugars were high 07/17. pH was 7.12 with a bicarb of 11. Anion gap of 30 after correcting for sodium.
Anion gap closed. Acidosis resolved. Off of IV insulin drip.
Back on subcutaneous insulin and diet. Increase nutritional insulin to 4 units AC.
#Leukocytosis unclear if reactive or secondary to UTI. Normalized
#Enterococcus faecalis UTI-continue with Augmentin till 07/24
#Urinary retention
Patient self catheterizes, continue finasteride
#History of peptic ulcer disease
#History of GI bleed
#Left upper quadrant abdominal pain
Continue Carafate, Protonix 40 mg twice daily
Monitor hemoglobin-stable
#Cigarette nicotine dependency
Smoking cessation counseling has been provided
Nicotine patch ordered
#Daily alcohol use
Drinks 2 beers a day. He declines drinking more than 2 beers of the light beers.
Advised to stop alcohol especially with newfound cardiomyopathy and cardiac issues.
#Essential hypertension
Continue enalapril
#Hyperlipidemia
Continue statin
DVT prophylaxis�Eliquis
Full code
Total time spent on today's encounter was 52 minutes which included time spent in counseling the patient/family regarding diagnosis and treatment plan as listed above, goals of care, and symptom management. Case was discussed with nursing staff,
specialists, and care coordinators/case management. All labs and imaging personally reviewed by me. Remainder the time spent in detailed review of previous records, lab data, imaging, and other medical provider documentation.
Portions of this chart may have been created with voice recognition software. Occasional wrong word or 'sound alike' substitutions may have occurred due to the inherent limitations of voice recognition software.
Anticipated Discharge: 24 - 48 hours
Subjective/Interval History
-
Date of Service: July 24, 2025
Patient no chest pain or shortness of breath at the moment but at rest. Afebrile
Objective Data
-
Labs:
Laboratory Results
07/24/25
04:40
Sodium 132 L
Potassium 3.6
Chloride 99
Carbon Dioxide 31 H
BUN 18
Creatinine 1.0
Glucose 151 H
Calcium 8.5
Vital Signs:
Vital Signs
Temp Pulse Resp BP Pulse Ox
98.3 F 59 20 137/65 94
07/24/25 07:34 07/24/25 08:39 07/24/25 07:34 07/24/25 08:39 07/24/25 07:34
I&O
07/23/25 07/24/25 07/25/25
05:59 06:59 06:59
Intake Total 580 / 580
Output Total 2775 / 2775 700 / 700
Balance -2195 / -219 -700 / -700
--- NOTE | 2025-07-24 10:22 | CM ---
Reviewed chart. Met with and Mrs. Tripp. He states he is feeling well and waiting for his procedure. We reviewed [facility] and he is still agreable to [facility]. Prior to admission he resides with his spouse in a two story home with
one step to enter. He has a full flight of steps to get to bedroom/full bathroom. He has a powder room on the first floor. Prior to admission he was independent with ambulation and adls. He has a walker and single point cane at home but he is not
using them. He has had [facility] and he is agreeable to [facility] again if needed.Telephone call to [facility] to make the referral. Sent the referral. He states he has a prescription plan. Medical work-up in progress. The
discharge plan is to return home with his spouse and [facility] when medically stable.
[2025-07-24 12:31] LABS: Glucose - Point of Care 95 mg/dl (70-99)
[2025-07-24 13:40] LABS: ACT-LR - POC 294 Seconds (116-155)
[2025-07-24 14:06] LABS: ACT-LR - POC 350 Seconds (116-155)
[2025-07-24 14:29] LABS: ACT-LR - POC 256 Seconds (116-155)
[2025-07-24 15:21] LABS: ACT-LR - POC 294 Seconds (116-155)
[2025-07-24 15:54] LABS: ACT-LR - POC 287 Seconds (116-155)
[2025-07-24 16:07] LABS: ACT-LR - POC 364 Seconds (116-155)
[2025-07-24 16:32] LABS: ACT-LR - POC 360 Seconds (116-155)
--- NOTE | 2025-07-24 17:00 | PTCARENOTE ---
~9137-1001: Handoff report received from nightshift RN. Pt AOx4, SB/NSR 50s-60s on tele, SBP 130s, RA satting 94%. Patient denies pain at this time. R groin and R radial puncture sites ecchymotic, KARAN and soft. R radial site still has the soft
'bubble' above the puncture site. Patient taken for US of area. Standby assist OOB to chair. Guzman intact and draining clear yellow urine, I/Os charted. at bedside. Dr. Bull at bedside to speak with patient and about procedure. All needs
met at this time, call soto within reach.
~[id number]: Patient returned back from US. VSS. Report called to CCL for procedure. Bloodsugar checked. I/Os charted. All needs met at this time, call soto within reach. Around 1300 patient taken to CCL for high risk PCI.
~1600: Update is patient cedrick be sent to CVICU post procedure, education and update given to to the best of my knowledge at this time.
~1700: belongings sent to new room in CVICU. Tamela is coming to the hospital to be with patient's . Informed the that I will bring her down to the new room in a wheelchair when the patient is settled.
[2025-07-24 17:14] LABS: Troponin I 0.563 ng/ml
[2025-07-24 17:21] LABS: ACT-LR - POC 313 Seconds (116-155)
[2025-07-24 17:36] LABS: Hematocrit 33.5 % (39.0-52.0); Hemoglobin 11.5 g/dL (13.0-18.0)
[2025-07-24 17:41] LABS: Glucose - Point of Care 109 mg/dl (70-99)
--- NOTE | 2025-07-24 17:49 | ITS.CL.ANGIO ---
Addendum entered and electronically signed by Murtaza Bull DO 07/27/25 17:39:
As part of the patient's cardiac catheterization, he underwent distal aortography with runoff of the bilateral iliac and femoral arteries. This demonstrated widely patent arteries with atherosclerotic, calcified disease in the bilateral common
femoral arteries. There are 40-50% lesions in the bilateral DIRECTOR POWER.
Original Note:
Delinquency Counselor - Angioplasty
Angioplasty
Procedure Report:
CARDIAC CATHETERIZATION REPORT
Date of Procedure: 07/24/2025
Referring: Murtaza Bull D.O.
INDICATION: Non-ST elevation myocardial infarction, cardiomyopathy.
PROCEDURE:
1. Distal aortography and angiography of the bilateral iliac and femoral arteries.
2. Placement of a temporary pacemaker.
3. Coronary angiography.
4. Successful intracoronary lithotripsy of the ostial RCA.
5. Successful PCI of the ostial RCA.
6. Successful CSI orbital atherectomy of the mid/distal RCA.
7. Partially successful intracoronary lithotripsy of the mid RCA.
8. Impella placement.
9. Successful PCI of the mid/distal RCA.
A total of 276 minutes of procedural/moderate sedation was utilized. An independent medical biller was present to assist with and help manage the patient's level of consciousness and physiologic status.
ACCESS:
1. 6 Tongan right common femoral artery using a modified Seldinger technique with a micropuncture kit under ultrasound guidance.
2. 7 Tongan right common femoral vein using modified Seldinger technique with a micropuncture kit under ultrasound guidance.
3. 14 Tongan left common femoral artery using a modified Seldinger technique with a micropuncture kit under ultrasound guidance.
CATHETERS:
1. 5 Tongan straight pigtail.
2. 6 Tongan JR4 guiding catheter.
3. 5 Tongan JL 4.
HEMODYNAMIC DATA
Weight (kg): 60.8
AO (s/d/x, mmHg): 126/55/79
LV (s/x mmHg): Not obtained.
AV gradient (x, mmHg): Not obtained.
LEFT VENTRICULOGRAPHY: Not performed.
CORONARY ANGIOGRAPHY
Dominance: Right.
Left Main: Normal size, trifurcating vessel. The external vessel is densely calcified.
LAD: Normal size, densely calcified vessel giving rise to 3 diagonals. There are are luminal irregularities in the proximal and mid vessel. The vessel is chronically totally occluded in its mid/distal portion immediately after D3 with a
bridging collateral to the distal/apical vessel.
Ramus: Small size vessel supplying the proximal anterolateral wall.
Circumflex: Densely calcified, nondominant vessel. The vessel is chronically totally occluded in its proximal margin. There is a bridging collateral in the proximal circumflex providing CURTIS I antegrade flow as well as left to left
collaterals providing retrograde flow.
RCA: Normal size, densely calcified vessel. There is an 80-90% lesion in the ostium of the RCA. There is a 30% lesion in the proximal vessel. There is a densely calcified 80% lesion in the mid/distal vessel as it enters the crux.
INTERVENTION(S)
1. Successful intracoronary lithotripsy of the densely calcified, 80-90% ostial RCA lesion (shockwave 3.5 x 12 IVL balloon).
2. Successful PCI of the densely calcified, 80-90% ostial RCA lesion (Xience Skypoint 3.5 x 15 SACHIN, postdilated with a 3.5 NC balloon) with reduction in stenosis to 0%, maintaining CURTIS-3 flow.
3. Successful CSI orbital atherectomy of the densely calcified, 80% mid RCA lesion.
4. Partially successful intracoronary lithotripsy of the densely calcified, 80% mid RCA lesion (shockwave 3.5 x 12 IV L balloon).
5. Repeat CSI orbital atherectomy of the densely calcified, 80% mid RCA lesion, complicated by slow reflow.
6. Placement of Impella CP.
7. Successful PCI of the densely calcified, 80% mid RCA lesion (Xience Skypoint 3.5 x 38 SACHIN, postdilated with a 3.5 NC balloon) with reduction in stenosis to 0%, restoring CURTIS-3 flow.
Narrative:
A temporary pacemaker was placed in the right ventricle in light of the need to proceed with RCA plaque modification. A 6 Tongan JR4 guiding catheter was advanced to the aortic root and seated in the right coronary artery. Additional heparin was
given and a Power Turn Flex wire was advanced into the distal RCA. The densely calcified, 80% ostial RCA lesion was predilated with a 2.0 x 12 semi-compliant balloon to 12 aaron with a GuideLiner brought for support.
The decision was made to proceed with plaque modification given the dense calcification. The semicompliant balloon was withdrawn and a Shockwave 3.5 x 12 coronary lithotripsy balloon was advanced over the wire and into the ostial RCA, but would not
advance into the lesion. The shockwave balloon was withdrawn and a 3 3.0 by 15 NC balloon was advanced into the ostial lesion. The lesion was dilated to 12 aaron and the GuideLiner was advanced over the NC balloon as it was deflated into sheathing
technique. With the GuideLiner in place, the NC balloon was withdrawn and the Shockwave balloon was readvanced into the proximal RCA with relative ease. The balloon was sterilely connected to the controller and prepped to negative pressure.
Meticulous care was taken while positioning the shockwave balloon. Once in satisfactory position, the GuideLiner was withdrawn and the balloon was inflated to 4 aaron. After confirming good contact with the vessel wall, 10 pulses were delivered.
After delivering 10 pulses, the balloon was inflated to 6 aaron then deflated. The entire lesion was treated in a similar manner for total of 6 rounds.
The Shockwave balloon was removed and a Xience Skypoint 3.5 x 15 drug-eluting stent was advanced. The stent was deployed at 12 atmospheres. The stent balloon was removed. A 3.5 x 12 noncompliant balloon was advanced into the stent and the stent was
postdilated to 18 atmospheres. Angiography was performed in orthogonal views, confirming good stent expansion and an excellent angiographic result.
We then turned our attention to the densely calcified 80% mid/distal lesion. The stent balloon was withdrawn and the 2.0 x 12 semicompliant balloon was advanced into the mid/distal RCA. The lesion was dilated to 16 aaron. We took this opportunity
to advance the GuideLiner and support. The 2.0 x 12 semicompliant balloon was withdrawn and a 3.0 x 15 NC balloon was advanced. The mid RCA lesion was dilated to 16 aaron. In spite of this, we had significant difficulty advancing the GuideLiner
beyond the crux due to the relative tortuosity and dense, circumferential calcification. In spite of these dilations, the balloons did not completely dilate and the decision was made to proceed with plaque modification. Initially we attempted to
deliver the shockwave balloon, but the shockwave balloon would not deliver into the lesion.
The shockwave balloon was withdrawn. The decision was made to change our plaque modification strategy. A quick cross microcatheter was advanced over the power turn flex wire with a wire pending technique. The quick cross microcatheter would only
reach to the crux but would not pass beyond it. The power turn flex wire was withdrawn and the Viper wire was advanced into the distal RCA. The quick cross microcatheter and the GuideLiner were withdrawn. The CSI orbital atherectomy device was
prepped on the back table and flushed with Viper slide. The device was loaded onto the Viper wire and brought up to the level of the catheter. An out of body test was successful. The CSI device was advanced over the Viper wire up to the level of
the coronary artery. Once the crown was positioned in place, orbital atherectomy was performed in the standard fashion with slow smooth passes. The patient was given nitroglycerin 150 mcg intracoronary after several runs. Brief angiography was
performed to rule out dissection and perforation. The process was repeated 4 times. Ultimately, the crown passed through the densely calcified lesion. The CSI device was withdrawn over the Viper wire.
The quick cross microcatheter was readvanced over the Viper wire but would not cross the crux again. We were concerned about potentially losing wire purchase so the quick cross microcatheter was withdrawn. A twin pass microcatheter was advanced
over the Viper wire and the power turn flex wire was advanced through the long portion of the catheter. Unfortunately, the pouch and flex wire would not advance beyond the crux either. The wire was replaced with a whisper wire which was able to
traverse the crux and enter the distal RCA beside the Viper wire. The twin pass catheter was removed. The GuideLiner was readvanced and the Viper wire was withdrawn.
The 2.0 x 12 semicompliant balloon was readvanced over the whisper wire and into the distal RCA. The mid and distal RCA was postdilated to 18 aaron. We took this opportunity to readvanced the guide liner for support. The 2.0 x 12 semicompliant
balloon was withdrawn and a 3.0 x 15 NC balloon was advanced. The mid/distal RCA lesion was dilated to 12 aaron, but we were still unable to deliver equipment distal to the crux beyond the CSI device. The NC balloon was withdrawn and the 3.5 x 12
shockwave balloon was readvanced with the GuideLiner in place. The shockwave balloon was advanced into the mid RCA, as distal as possible, which remained proximal to the crux. Intracoronary lithotripsy was performed in the area for a total of 6
rounds. The shockwave balloon was withdrawn. A 3.0 x 12 semicompliant balloon was advanced and into the more distal RCA. The distal and mid RCA were dilated to 12 aaron and was used to advance the GuideLiner as distal as possible.
The decision was made to proceed with percutaneous coronary intervention. The semi-compliant balloon was removed and a Xience Skypoint 3.5 x 38 drug-eluting stent was advanced. Unfortunately, the stent would not advance beyond the crux lesion.
The stent was withdrawn. We made several attempts to readvanced the GuideLiner including predilation with a 3.5 x 12 balloon. Unfortunately, in spite of multiple attempts, we could never advance the GuideLiner far enough to deliver the stent.
Ultimately, the decision was made to repeat CSI. The twin pass microcatheter was readvanced over the whisper wire, passing into the crux lesion, a notable improvement compared to previous. The Viper wire was advanced through the twin pass
microcatheter and into the distal RCA. The twin pass microcatheter was withdrawn. The whisper wire was withdrawn. The CSI orbital atherectomy device was reinserted. Orbital atherectomy was performed again for an additional 4 rounds. The crown
was able to pass into the distal RCA relatively easily. Nitroglycerin was given intracoronary. Angiography was performed and showed slow reflow within the distal vessel. At this point, the patient started to become severely hypotensive.
Norepinephrine and dopamine were both started in addition to fluid boluses.
Pressors were rapidly uptitrated. At one point, the patient was given 3 chest compressions, though he was found to be conscious and those efforts were held. STAT echocardiogram showed no evidence of effusion. The decision was made to support the
patient's left ventricle more aggressively.
The left common femoral artery was accessed using a modified Seldinger technique with a micropuncture kit under ultrasound guidance. The short 14 Tongan Impella sheath was placed. The Impella CP was prepped on the back table. A 5 Tongan pigtail
catheter was prolapsed into the left ventricle and a 0.018 inch wire was advanced into the apex of the left ventricle. The pigtail catheter was withdrawn. The Impella CP was advanced over the wire and seated across the aortic valve. The wire was
removed and the Impella was started. Fluoroscopy, pressure gradient and motor current confirmed satisfactory position. The short 14 Tongan sheath was removed and the repositioning sheath was advanced, then sutured in place.
The combination of the Impella and vasoactive medications dramatically improved the patient's hemodynamics. We were able to return to working on the coronary artery. Angiography was repeated, demonstrating CURTIS-3 flow. Once again, we needed to
exchange the Viper wire for a more supportive wire. The twin pass was readvanced over the Viper wire and the whisper wire was advanced in an attempt to reaccess the distal RCA. Unfortunately, the whisper wire would not advance into the distal RCA
in spite of numerous attempts including wire reshaping and attempting with a different wire. The twin pass was withdrawn. A Turnpike microcatheter was advanced over the Viper wire and into the mid RCA. Using a torquing motion, the Turnpike wire
was able to advance into the distal RCA with relative ease. The Viper wire was withdrawn and an Extra S'Port coronary wire was advanced through the Turnpike and into the distal RCA. The Turnpike catheter was withdrawn.
The 2.0 x 12 semicompliant balloon was readvanced into the distal RCA to support advancement of the GuideLiner. Even with this support, the GuideLiner was able to advance into the mid vessel to the point of the proximal, again getting stuck near
the densely calcified lesion. The semicompliant balloon was withdrawn and a 2.5 x 12 semicompliant balloon was advanced. This balloon was used to dilate the mid/distal vessel and advance the GuideLiner as much as possible. The 2.5 x 12
semicompliant balloon was withdrawn and a 3.0 x 12 noncompliant balloon was advanced. This balloon was able to cross the crux and into the distal RCA. The distal vessel including the crux was predilated to 18 aaron and used to advance the GuideLiner
further. The noncompliant balloon was withdrawn and the 3.5 x 38 drug-eluting stent was readvanced, at this time passing through the crux and into the distal RCA. The GuideLiner was pulled back and the stent was deployed at 12 atmospheres. The
stent balloon was removed. A 3.5 x 12 noncompliant balloon was advanced into the stent and the stent was postdilated to 18 atmospheres. The GuideLiner was pulled back into the guide and the ostial stent was postdilated with a 3.5 x 12 NC balloon to
18 aaron. The noncompliant balloon was withdrawn.
Final angiography was performed in orthogonal views, demonstrating good stent expansion and an excellent overall angiographic result. The coronary wire was withdrawn and the guide was disengaged from the artery. The catheter was removed over a
standard J-wire. The Impella was sutured in place and covered with a large Tegaderm. Angiography was performed through the repositioning sheath. There was a question of some mild extravasation, but repeat examination showed no evidence of
hematoma and hemoglobin remained stable.
The 6 Tongan right common femoral sheath was closed with a 6 Tongan Angio-Seal. Unfortunately, this continue to ooze in spite of the Angio-Seal placement. Manual pressure was held for 20 minutes with excellent hemostasis. The patient continued to
have occasionally labile blood pressures, ultimately stabilizing with an Impella setting of P4 and norepinephrine of 10 mcg/kg/min. Dopamine had been weaned. The patient had been started on amiodarone due to ectopy and a brief run of atrial
fibrillation. The patient became hypotensive after removal of the pacemaker, though this also coincided with titration of pressors. The patient underwent repeat stat echo out of concern for RV perforation. Thankfully, no effusion was identified.
Ultimately, the hypotension was determined to be due to withdrawal of pressors as well as a vagal response due to continuous pressure on his groin.
The patient was transferred to the CVICU in critical but stable condition.
Closure Device: 6 Tongan Angio-Seal for the right common femoral artery.
Radiation (mGy): 1409.18
DAP (cm2.Gy): 118.28
Fluoroscopy time (minutes): 73.8
CONCLUSIONS
1. Right dominant circulation with a CEREAL MILLER of the ostial circumflex, luminal irregularities in the proximal and mid LAD with a CEREAL MILLER of the mid/distal LAD immediately after D3, a densely calcified 80-90% lesion in the ostium of the RCA status post
successful intracoronary lithotripsy (shockwave 3.5 x 12 balloon) and PCI (Xience Skypoint 3.5 x 15 SACHIN, postdilated with a 3.5 NC balloon) and a densely calcified 80% lesion in the mid RCA status post CSI, intracoronary lithotripsy, repeat CSI
complicated by slow reflow and hypotension requiring Impella placement, ultimately status post accessible PCI (Xience Skypoint, postdilated with a 3.5 NC balloon) with reduction in stenosis to 0%, restoring CURTIS-3 flow.
2. Placement of Impella CP for hemodynamic support.
3. Intraprocedural consultation with interventional cardiology and CT surgery colleagues.
RECOMMENDATIONS:
1. Expectant management after cardiac catheterization via bilateral common femoral approach.
2. Absolute bedrest given placement of Impella.
3. Antiplatelet therapy with clopidogrel. Aspirin on hold in light of anticoagulation indicated for atrial fibrillation/flutter.
4. Slow wean of norepinephrine blood pressure support.
5. Maintain Impella CP placement overnight with slow wean to a minimum of P2.
6. Hemoglobin/hematocrit checks every 2 hours for the first 6 hours postprocedure, followed by every 4 hours thereafter. Transfusion for H&H <07/20.
7. Echocardiogram tomorrow morning.
8. Referral to cardiac rehab.
Copy to: Amelia Broussard M.D.
Murtaza Bull DO, FACC, FACP
.
[2025-07-24 18:48] LABS: Glucose - Point of Care 124 mg/dl (70-99)
[2025-07-24 19:01] LABS: B.E. 0.6 mmol/L; HCO3 24.5 mmol/L (21-28); O2 Saturation % 98.7 % (94-98); PCO2 36 mmHg (35-48); PO2 91 mmHg (83-108)
[2025-07-24 19:06] LABS: Hematocrit 36.1 % (39.0-52.0); Hemoglobin 12.0 g/dL (13.0-18.0); Mean Corp Hgb Conc. 33.2 g/dL (33.0-37.0); Mean Corpuscular Volume 93.0 fL (80.0-94.0); Platelet Count 235 10^3/uL (130-400); Red Cell Dist. Width 13.6 % (11.5-14.5)
--- NOTE | 2025-07-24 19:06 | PTCARENOTE ---
received pt from the ccl into 2260, sinus bradycardia on tele, bp 138/57, pox 98% on RA. + doppler perioheral pulses. Left femoral artery w impella at p4, femstop in place at site. EKG and labs obtained. report given to nightsdevendraft JENNIFER.
[2025-07-24 19:16] LABS: ALT (SGPT) 24 U/L (0-50); AST (SGOT) 29 U/L (17-59); Albumin 3.5 g/dl (3.5-5.0); Alkaline Phosphatase 61 U/L (38-126); Blood Urea Nitrogen 14 mg/dl (9-20); Calcium 8.3 mg/dl (8.4-10.2); Carbon Dioxide 27 mmol/L (22-30); Chloride 99 mmol/L (98-107); Estimated Creatinine Clearance 61 ml/min; Glucose 142 mg/dl (70-99); LDH 330 U/L (120-246); Magnesium 1.5 mg/dl (1.6-2.3); Potassium 3.2 mmol/L (3.5-5.1); Sodium 131 mmol/L (135-145); Total Protein 6.3 g/dl (6.3-8.2); eGFR > 60.00
[2025-07-24] MEDS: SODIUM BICARBONATE 1025 MEQ INF CATH (19:23)
[2025-07-24] MEDS: CARAFATE SUSPENSION 1 GM PO (19:25)
[2025-07-24] MEDS: NSS 500 VEN SHEATH (19:25)
[2025-07-24] MEDS: LIPITOR PO (19:36)
[2025-07-24] MEDS: ZOFRAN 4 MG IV (19:36)
[2025-07-24 19:41] LABS: Fibrinogen 312 MG/DL (199-459); INR 1.34; PT 16.9 Sec (11.4-14.6)
[2025-07-24 19:44] LABS: D-Dimer 0.87 ug/mlFEU (0.00-0.50)
--- NOTE | 2025-07-24 20:00 | PTCARENOTE ---
bedside report received from previous RN. pt AAOx4. NIH scale 2 for mild slurring and left sided facial droop, unchanged from previous. pt flat in bed, Impella CP in place via L femoral artery, set to P4; site puffy but soft. R femoral venous sheath
in place w KVO infusing; CDI, site soft. SB w PVCs on monitor, HR 50s. bilateral radial pulses palpable. bilateral DP pulses present with doppler. Amio gtt infusing @ 1mg. Levo gtt infusing @ 8mcg. SBP 100s-110s. K+ and Mag repleted per orders.
bilateral breath sounds present. POX 98% on room air. hua catheter intact, draining CYU. +BS. pt c/o nausea. zofran given per orders. L wrist PIV intact and patent. R radial cath site CDI, WNL. Dr. Bull at bedside to assess groin sites -
instructed RN to decrease Amio gtt to 0.5mg d/t bradycardia. turning/repositioning pt Q2H and as needed. see worklist for full assessment, VS, and interventions.
[2025-07-24] MEDS: MAGNESIUM SULFATE 50 IV (20:12)
[2025-07-24] MEDS: VASOTEC PO (20:17)
[2025-07-24] MEDS: KCL 100 IV (20:17)
[2025-07-24] MEDS: LACTATED RINGERS 250 IV (20:18)
[2025-07-24 21:14] LABS: Hematocrit 29.6 % (39.0-52.0); Hemoglobin 10.0 g/dL (13.0-18.0)
--- NOTE | 2025-07-24 22:01 | W.PN.ANS.LIN ---
Anesthesia IV & A-Line Note
- IV/Arterial Line
Left Wrist Arrow 20 (11/22)
IV Line Comments: Multiple Attempts
A-Line Comments: Sterile technique as per standard protocol, Uneventful procedure, Ultrasound guided insertion, Biopatch applied
A-line Insertion Start Time: 21:30
A-line Insertion Stop Time: 21:50
Comments: Good wave form and blood return
[2025-07-25] VITALS (16 sets, daily range): BP systolic 83–133; BP diastolic 32–68; BMI 20.9
--- NOTE | 2025-07-25 | PTCARENOTE ---
2100 - pt SBP 60s-70s on 14mcg Levo gtt. when assessing groin sites, hematoma noted to right groin. CT VERNON Venegas notified and at bedside. manual pressure applied to R groin. LR fluid bolus given. NOTCHING MACHINE OPERATOR at bedside to place L radial arterial line. VAT
nurse at bedside to place R midline IV. Dr. Bull update by VERNON Venegas. orders received for 1 u PRBCs. type&screen drawn and sent. 1u PRBCs given emergently. pt transported for CT scan of abdomen/pelvis. post blood tranfusion - Levo gtt now
infusing @ 2mcg. pt SB on monitor, HR 50s. Amio gtt remains @ 0.5mg. Impella remains @ P4. bilateral groin sites stable and soft. POX 99% on room air. hua remains in place. pt continues to have intermittent nausea. pt resting between care.
[2025-07-25] MEDS: CARAFATE SUSPENSION PO ×6 (00:13→22:11)
[2025-07-25 01:19] LABS: Hematocrit 30.8 % (39.0-52.0); Hemoglobin 10.8 g/dL (13.0-18.0)
--- NOTE | 2025-07-25 02:10 | W.PN.UPDATE ---
Update Note
Progress Note Update
-at 9:15 am came in urgently into the room for acute hypotension - sbp 63/53- Levo increased from 8 to 14, responded well to LR (got total 1 L). R groin has venous sheath and noted to have acute hematoma --- manual pressure was held for total of 30
min, then fem-stop was placed. Hematoma improved significantly. L groin has Impella- has prior hematoma, which remained soft and without change. Hg dropped from 12.0 to 10.0--ordered emergently 1 pRBC. L radial a-line was hard to place (placed
successfully by anesthesia). Difficult iv stick and hard to place new iv line; therefore, R mid line placed by IV team (apparently, had R picc line previously). Pt never lost consciousness, was A&O x3 and answered appropriately. Earlier, pt had PVCs
-repleted pt's K and Mg.
-Discussed above with Dr. Bull- ordered Abd/Pelvis CT
-Once blood was started, pt became more hemodynamically stable and we were able to wean Levo down to 4, then took pt down for Abdominal/pelvic CT.
-It revealed No intra-abdominal or retroperitoneal bleed. There was small amount of subcutaneous ill-defined hemorrhage in the R groin and proximal anteromedial thigh. R femoral venous central line with tip in the distal external iliac vein. There
was moderate amount of ill-defined hemorrhage within the subcutaneous tissues of the L groin extending down anteromedial thigh, inferior extent not seen. Size of hemorrhage in L groin was 2.9 x 8.0 x 18 cm.
[2025-07-25 02:55] LABS: LDH 350 U/L (120-246); Magnesium 2.1 mg/dl (1.6-2.3); Potassium 4.1 mmol/L (3.5-5.1)
[2025-07-25] MEDS: ZOFRAN 4 MG IV (04:46)
[2025-07-25 04:47] LABS: Hematocrit 32.3 % (39.0-52.0); Hemoglobin 11.1 g/dL (13.0-18.0); Mean Corp Hgb Conc. 34.4 g/dL (33.0-37.0); Mean Corpuscular Volume 92.0 fL (80.0-94.0); Nucleated Red Blood Cells % 0 % (-); Platelet Count 177 10^3/uL (130-400); Red Cell Dist. Width 14.4 % (11.5-14.5)
[2025-07-25 04:57] LABS: INR 1.12; PT 14.7 Sec (11.4-14.6)
[2025-07-25 04:58] LABS: Fibrinogen 317 MG/DL (199-459)
[2025-07-25 05:00] LABS: D-Dimer 0.68 ug/mlFEU (0.00-0.50)
[2025-07-25 05:15] LABS: ALT (SGPT) 26 U/L (0-50); AST (SGOT) 62 U/L (17-59); Albumin 3.0 g/dl (3.5-5.0); Alkaline Phosphatase 59 U/L (38-126); Blood Urea Nitrogen 14 mg/dl (9-20); Calcium 8.4 mg/dl (8.4-10.2); Carbon Dioxide 26 mmol/L (22-30); Chloride 103 mmol/L (98-107); Estimated Creatinine Clearance 61 ml/min; Glucose 169 mg/dl (70-99); LDH 391 U/L (120-246); Magnesium 2.0 mg/dl (1.6-2.3); Potassium 4.1 mmol/L (3.5-5.1); Sodium 131 mmol/L (135-145); Total Protein 5.5 g/dl (6.3-8.2); eGFR > 60.00
[2025-07-25] MEDS: CARDENE 200 IV (06:14)
--- NOTE | 2025-07-25 08:01 | W.PN.CD ---
Addendum entered and electronically signed by Benjamin Rodriguez MD 07/25/25 09:46:
CDI: Possible cardiogenic shock from LV stunning, now resolved.
Original Note:
Today's Communication / Plan
-
Impella out today. Wean Nicardipine for goal SBP <140
Continue DAPT
Resume AC tomorrow and stop ASA if hgb/clinically stable
Impression / Plan
-
Impression/Plan: 75 y/o male with a history of tobacco abuse with COPD, severe multivessel CAD with ICMO/HFmEF (LVEF 40-45%), HTN, HLD, PUD/GIB and IDDM1 (since age 37) admitted with BEAR/orthopnea with hypoxic respiratory failure and new atrial
flutter and elevated troponin, course complicated by DKA and shock, now s/p atrial flutter ablation and pending high risk PCI of RCA after CTS declined CABG.
Order Editor: Michael
#Shock
-Complex PCI yesterday requiring Impella CP placement and norepinephrine overnight. Dr. Bull thinks due to distal embolization of plaque leading to LV stunning. Hgb stable. CTAP with no acute bleed.
-Shock now resolved and he is actually hypertensive requiring nicardipine drip
-Remove Impella CP today. Levo is off.
#Multivessel CAD s/p complex PCI
-[facility] 07/17/2025: BORDER POLICE mid LAD, BORDER POLICE proximal LCx, 80-90% ostial RCA, 70% mid RCA; LVEDP 14 mmHg at 60.8 kg.
-[facility] 07/25/2025: S/p complex PCI to ostial RCA lesion and mid RCA lesion. Impella CP placed.
-Continue aspirin and clopidogrel. If stable tomorrow, will stop aspirin and resume anticoagulation
-Continue ezetimibe and statin. Goal LDL < 55.
-Remove Impella today.
#Atrial flutter/Atrial fibrillation
-New diagnosis, noted on recent monitor (07/13/2025).
-Atrial flutter ablation 07/20/2024
-Remains in sinus rhythm.
-CHADSVASC = 8 (HTN, HF, DM,carotid dz, CVA (x2), age x2).
-Transition to apixaban tomorrow if hgb stable
#HFmrEF
-Acute. TTE 07/17/2025: LVEF 40%, akinetic apex
-Echo from 05/2025 with EF of 50-55% with aneurysmal apex/septal wall, hypokinesis of the inferolateral wall.
-LVEDP 14 mmHg at 60.8 kg.
-GDMT as hemodynamics will tolerate:
-Diuretics: Furosemide 40 mg PO daily.
-Beta da: Metoprolol succinate 12.5 mg daily.
-ACEI/ARB/ARNi: Enalapril 5 mg PO daily.
-MRA: None.
-SGLT2i: Dapagloflozin 10 mg daily -- ON HOLD.
-ICD: Not currently indicated.
#Stroke Alert
-Occurred after cardiac catheterization 07/17/2025. Patient had been noted to be hypotensive. Besides having catheterization patient also with known carotid artery disease and atrial fibrillation/atrial flutter.
-Patient seen by neurology currently stable.
#HTN
-Chronic, stable.
-Continue enalapril, metoprolol.
-Wean Nicardipine for goal SBP <140
#Mild
-Chronic, stable.
#Carotid Disease:
-Chronic, stable.
-Bilateral disease on US - 50-69%.
-Follows with Dr. Guzman.
-Statin/risk factor modification.
#Alcohol Abuse
-Chronic. reports 6 drinks/daily.
Subjective/Interval History:
No chest pain or dyspnea. No pain at groin sites.
Overnight had an episode of acute hypotension requiring increased Levophed. Found to have right groin hematoma. Manual pressure held. 1 unit PRBCs transfused.
CTAP with small amount of subcutaneous ill-defined hemorrhage in the right groin and left groin. No intra-abdominal or retroperitoneal bleed.
Later in the night became hypertensive, Levophed stopped and now on nicardipine.
Impella at P4.
DATA:
Cardiac Catheterization, 07/17/2025:
CONCLUSIONS
1. Right dominant circulation with dense calcification throughout the entire coronary tree, a BORDER POLICE of the mid/distal LAD with bridging collaterals to the apical vessel, a chronic total occlusion of the nondominant circumflex and its proximal margin
and an 80-90%, densely calcified lesion in the ostium of the RCA followed by a densely calcified 70% lesion in the mid vessel.
2. Mildly elevated filling pressures (LVEDP = 14 mmHg at 60.8 kg).
3. Stenotic and calcified right radial artery with some discomfort placing a 6 Scottish radial sheath.
TTE, 07/17/2025:
SUMMARY
1. Limited follow up study. Patient in atrial flutter with rapid ventricular response.
2. Mild global hypokinesis with aneurysmal/akinetic apex. LVEF estimated at 40%.
3. Mild left atrial enlargement.
4. The cardiac valves were not fully evaluated.
5. Compared to echocardiographic study dated 06/10/2025 rapid atrial flutter replaces NSR. LVEF has fallen from 50-55% to 40%. Global hypokinesis is new. The apex is similar.
Head CT, 07/17/2025:
IMPRESSION:
No acute intracranial abnormalities.
Small old lacunar infarcts again seen in the bilateral basal ganglia and left thalamus.
Findings again seen compatible with diffuse cortical atrophy with nonspecific white matter changes as described above.
CTA Head/Neck, 07/17/2025:
IMPRESSION:
1. No large vessel occlusion, dissection, or aneurysms appreciated.
2. Heavily calcified carotid bulbs and proximal internal carotid arteries likely causing 50-69% luminal narrowing bilaterally.
3. Multilevel cervical spondylosis.
CT Chest, 07/17/2025:
IMPRESSION:
1. Trace right pleural effusion with irregular adjacent airspace opacities, most likely representing atelectasis and/or scarring.
2. Mild centrilobular emphysema within the upper lobes.
3. Normal caliber thoracic aorta with small amount of calcified plaque within the arch.
4. Chronic compression deformity of T7 vertebral body. Age-indeterminate mild compression deformities along the superior endplates of T2 and T3.
5. Bilateral intrarenal calculi.
EP/Ablation, 07/20/2025:
Summary:
Successful SVT ablation with typical atrial flutter ablation with cavo-tricuspid isthmus line of block formation.
Physical Exam
Vital Signs/Labs
Vital Signs
Temp Pulse Resp BP Pulse Ox
98.2 F 74 20 127/50 93
07/25/25 03:00 07/25/25 06:45 07/25/25 06:45 07/25/25 06:06 07/25/25 06:45
07/24/25 07/25/25 07/26/25
06:59 06:59 06:59
Actual Weight 141 lb 12.116 oz
07/25/25 04:29
PT 14.7 Sec (11.4-14.6) H 07/25/25 04:29
INR 1.12 07/25/25 04:29
APTT 88.1 Sec (23.4-35.0) H 07/20/25 00:29
Magnesium 2.0 mg/dl (1.6-2.3) 07/25/25 04:29
Triglycerides 63 mg/dl (10-149) 07/16/25 07:38
LDL Cholesterol, Calc 56 mg/dl 07/16/25 07:38
VLDL Cholesterol, Calc 12 mg/dl (0-30) 07/16/25 07:38
HDL Cholesterol 64 mg/dl 07/16/25 07:38
07/15/25
06:50
[id number] Pept 3770
LAB Results
07/24/25
16:37
Troponin I 0.563 H*
Physical Exam
Constitutional: No acute distress and Comfortable
Cardiovascular: Rhythm & rate is regular, Pedal edema is absent, S1S2 is normal and Murmur/rub/gallop absent
Respiratory: Respiratory effort normal and Lungs clear to auscul.
Other: Other (R groin soft with minimal swelling and bruising, soft to touch; L groin with Impella in place; stable bruising and mild swelling; soft to touch)
Data Reviewed
-
Date of Service: July 25, 2025
Medical Decision Making: Reviewed Test Results, Independent Historian Assessment, Test Interpretation and Review of Case with other Provider
EKG: Tracing Personally Visualized and interpreted
Echo: Report Reviewed by me
X-Ray/CT/US/MRI/NUC/PET: Report Reviewed by me
Labs: Labs Reviewed by me
Critical Care Time (in minutes): 34
[2025-07-25 08:15] LABS: Hematocrit 32.4 % (39.0-52.0); Hemoglobin 11.1 g/dL (13.0-18.0)
[2025-07-25] MEDS: NOVOLOG FLEXPEN SC ×3 (08:26→17:12)
[2025-07-25] MEDS: NOVOLOG FLEXPEN-LOW RESISTANCE SC ×5 (08:26→23:55)
--- NOTE | 2025-07-25 08:27 | PTCARENOTE ---
assumed care of pt from previous shift RN, sinus rhythm on tele w HR 70, left radial ben leveled and zeroed, bp 130/44 on 2.5mg cardene, amiodarone infusing at 0.5mg infusing via right femoral sheath. Left femoral w implella originally at p4,
placed on p2 by dr orosco. pt sent back to ccl for impella removal.
--- NOTE | 2025-07-25 08:42 | PN.DE.MGMTRT ---
Insulin Management
- -
07/25/2025: Diabetes Management Follow up
Patient admitted 07/15 with c/o increasing SOB for past two days, found to be in A flutter, mild heart failure, acute hypoxic respiratory failure, possible non-ST elevation AK (Troponin peaked at 2).
PMH: CAD, ICM, CHF w/ mildly reduced EF, mild , HTN, HLD, COPD, gastric ulcers, HH, GERD, daily alcohol use, tobacco abuse, CVA 01/2015 on Plavix, colon polyps, urinary retention requiring self-catheterization, erectile Dysfunction, falls,
pneumothorax and T1DM- was dx at 37 years old.
Patient was inpatient 06/13 to 06/18 with acute change in mental status, encephalopathy. Prior to admission was taking NPH 26 units in AM and 16 units @ HS. A1C 8.4%, cr 1.1 eGFR >60.
States he was diagnosed with type 1 diabetes requiring insulin at age 37. They both state he is followed by his primary doctor, Bobo, for diabetes management. Today states that he did see the APPRAISAL MANAGER at [facility]
just once. He has been on NPH and was recently ordered NovoLog but told only to take if glucose > 300. Discussed at length importance of glucose control and action of Lantus. He states he does not recall ever being on Lantus but is agreeable to
try.
He was found to be in DKA after fall 07/17, glucose 594. Transferred to ICU and insulin infusion - DKA protocol started and transitioned off on 07/18 to SQ insulin
Patient is in the label rewinder for procedure today. I spoke with nurse.
07/24 Fasting glucose 128. Patient received AM lantus 22 units; NPO so received no meal time novolog.
07/25 Fasting glucose 169. Patient is again NPO. Should receive AM lantus after procedure. When diet resumed should resume NovoLog to 6 units AC after the procedure. Cont low corrective insulin.
Discussed with nurse. Will cont to follow.
07/24/25 Reviewed discharge medication with pt's as she seemed confused about the 2 different types of insulin patient will be taking after discharge
Instructed Pt's to discard the old NPH insulin that she has at home prior to patient being discharged so she doesn't get herself confused.
Diabetes History
- -
Type of Diabetes: 2 requiring insulin
Pre-Admission Diabetes Regimen
07/24/25 07/25/25
18:45 04:29
Creatinine 0.9 0.9
Lab Results
Hemoglobin A1c 8.4 % (4.0-5.9) H 07/16/25 07:38
Insulin Pump Settings
IP Diabetes Regimen
07/24/25 07/24/25 07/24/25
09:07 12:30 17:29
Glucose
POC Glucose 128 H 95 109 H
07/24/25 07/25/25
18:45 04:29
Glucose 142 H 169 H
POC Glucose 124 H
Meal type: Breakfast
Amount consumed: 95%
Patient Education
--- NOTE | 2025-07-25 08:57 | W.PN.HOSP.TC ---
Today's Communication/Plan
-
See plan
Assessment / Plan
Assessment / Plan
Physical exam:
General: Acutely ill
HEENT: Normocephalic, Atraumatic and Dry Mucous Membranes
Respiratory: Decreased breath sounds bilaterally; Negative Wheezes, Rales or Rhonchi
Cardiac: Regular Rhythm and S1/S2
GI: Soft, Nontender and Nondistended
Musculoskeletal: No Clubbing, No Cyanosis and No Edema
Neuro: Lethargic, no neurological deficit
Psych: Limited judgment and insight
A/P:
Cardiogenic shock:
Discussed with cardiology today who is planning to remove Impella
Possible left ventricular stunning
Persistent nausea and vomiting:
Obtain chest and abdomen x-ray
Place NG tube
Start IV Protonix
Acute blood loss anemia:
Blood transfusion as needed
Monitor hemoglobin
Occlusion of left common femoral artery with concern for dissection flap following Impella placement:
Vascular surgery on board with reconstruction via graft from left common femoral artery to left SFA
Hypertensive urgency:
Weaning nicardipine drip
Continue other antihypertensives
Diabetes mellitus type 1:
Continue Lantus
Meal coverage insulin when able to take oral
Insulin sliding scale
Multivessel CAD:
Status post complex PCI to ostial RCA and mid RCA
On DAPT
On statin
Atrial flutter/fibrillation, new onset:
Cardiac monitoring
On beta-blockers
On amiodarone
Anticoagulation when cleared by cardiology
Acute HFrEF:
On oral diuretics
On GDMT
Altered mental status with stroke alert refugio-procedure:
Was felt to be hypotension related and stroke workup unremarkable
Mild aortic stenosis:
Serial echo as outpatient
Other medical diagnoses:
NSTEMI
Acute respiratory insufficiency
Hypotension
ROSSY
Hyponatremia
Leukocytosis
Recent Enterococcus faecalis UTI
Nicotine addiction
Alcohol use disorder
Hypertension
Hyperlipidemia
History of peptic ulcer disease
Urinary retention
DKA, resolved
DVT prophylaxis:
SCDs if okay with vascular. Considering anticoagulation
CODE STATUS:
Full code
Total Critical Care Time_37____ minutes. I was immediately available to the patient and staff. I personally examined, reviewed labs, diagnostic images/reports, interpretations, treatment plans, discussed patient care with other providers and
family or caregivers (if patient is unable to make decisions), entered orders as appropriate and documented the medical record.
Anticipated Discharge: > 48 hours
Subjective/Interval History
-
Date of Service: July 25, 2025
Patient hypotensive earlier and then hypertensive.
Objective Data
-
Labs:
Laboratory Results
07/24/25 07/24/25 07/25/25
21:04 22:00 00:29
WBC
Hgb 10.0 L Cancelled 10.8 L
Hct 29.6 L Cancelled 30.8 L
Plt Count
PT
INR
Sodium
Potassium
Chloride
Carbon Dioxide
BUN
Creatinine
Glucose
Calcium
Total Bilirubin
AST
ALT
Alkaline Phosphatase
07/25/25 07/25/25 07/25/25
02:12 04:00 04:29
WBC 13.2 H
Hgb Cancelled 11.1 L
Hct Cancelled 32.3 L
Plt Count 177 D
PT 14.7 H
INR 1.12
Sodium 131 L
Potassium 4.1 D 4.1
Chloride 103
Carbon Dioxide 26
BUN 14
Creatinine 0.9
Glucose 169 H
Calcium 8.4
Total Bilirubin 2.8 H D
AST 62 H
ALT 26
Alkaline Phosphatase 59
07/25/25 07/25/25
08:00 12:00
WBC
Hgb 11.1 L Pending
Hct 32.4 L Pending
Plt Count
PT
INR
Sodium
Potassium
Chloride
Carbon Dioxide
BUN
Creatinine
Glucose
Calcium
Total Bilirubin
AST
ALT
Alkaline Phosphatase
Vital Signs:
Vital Signs
Temp Pulse Resp BP Pulse Ox
98.1 F 71 23 127/50 98
07/25/25 08:00 07/25/25 08:15 07/25/25 08:15 07/25/25 06:06 07/25/25 08:40
I&O
07/24/25 07/25/25 07/26/25
06:59 06:59 06:59
Intake Total 891.1 / 891.1 39.2 / 39.2
Output Total 700 / 700 1840 / 1840 50 / 50
Balance -700 / -700 -948.9 / -948.9 -10.8 / -10.8
--- NOTE | 2025-07-25 09:15 | PN.CDI ---
CDI
- -
CDI:
Physician Documentation Request
Admit Date: 07/15/25 09:10
Dear Doctor Michael,
Clinical Indicators:
Current documentation includes a diagnosis of shock.
07/25 Cardiology PN, 'Shock -Complex PCI yesterday requiring Impella CP placement and norepinephrine overnight. Dr. Bull thinks due to distal embolization of plaque leading to LV stunning.'
Please clarify which of the following is the most likely type of shock:
Cardiogenic shock
Shock, other type (please specify)
Other
Use of terms such as suspected, likely, concern for, or probable (associated with a specific diagnosis that is being evaluated, monitored, or treated as if it exists) are acceptable and can be coded in the inpatient setting, when documented at the
time of discharge.
Thank you,
JOANIE Miranda RN
CDI Specialist
available via tiger text
Please use your independent medical judgment in providing your response.
--- NOTE | 2025-07-25 10:18 | PN.CDI ---
CDI
- -
CDI:
Physician Documentation Request
Admit Date: 07/15/25 09:10
Dear Doctor Michael,
Clinical Indicators:
07/24 Cardiology PN, 'Abnormal troponin elevation with multivessel CAD-Suspect type II SC from demand in the setting of rapid atrial flutter/fibrillation and shock.'
07/24 Cath Report, Indication: N STEMI; PCI to ostial RCA lesion and mid RCA lesion.
Troponin trend:
07/15/25 07/15/25 07/15/25
06:50 10:37 16:07
Troponin I 0.589 H* 0.913 H* D 2.000 H* D
07/16/25 07/18/25 07/24/25
08:14 04:04 16:37
Troponin I 1.450 H* 0.934 H* 0.563 H*
Due to potentially conflicting documentation, please clarify in the progress notes, the etiology of the troponin elevation:
N STEMI
Type 2 SC
Other, please specify
Use of terms such as suspected, likely, concern for, or probable (associated with a specific diagnosis that is being evaluated, monitored, or treated as if it exists) are acceptable and can be coded in the inpatient setting, when documented at the
time of discharge.
Thank you,
JOANIE Miranda RN
CDI Specialist
available via tiger text
Please use your independent medical judgment in providing your response.
[2025-07-25 10:21] LABS: B.E. - POC -1.0 mmol/L; Glucose - POC 205 mg/dl (70-99); HCO3 - POC 23 mmol/L (21-28); Hematocrit - POC 29 % PCV (42-52); Hemodilution- POC Yes; Hemoglobin Calculated - POC 9.8; Ionized Calcium - POC 1.21 mmol/L (1.15-1.33); Lactate - POC 0.87 mmol/L (0.36-0.75); O2 Saturation %Calculated-POC 100.0 % (94-98); PCO2 - POC 36 mmHg (35-48); PO2 - POC 358 mmHg (83-108); Potassium - POC 3.9 mmol/L (3.5-5.1); Sodium - POC 136 mmol/L (136-145); Specimen Type - POC Arterial; pH - POC 7.42 (7.35-7.45)
[2025-07-25 10:50] LABS: ACT-LR - POC 371 Seconds (116-155)
[2025-07-25 11:35] LABS: ACT-LR - POC 253 Seconds (116-155)
--- NOTE | 2025-07-25 11:36 | PTOTSP ---
Reviewed chart and noted pt had cath yesterday, hematoma, transferred to CVICU. PT and OT orders were not continued upon transfer. Will need new orders for PT and OT when stable to resume activity.
[2025-07-25 11:38] LABS: B.E. - POC -2.1 mmol/L; Glucose - POC 233 mg/dl (70-99); HCO3 - POC 23 mmol/L (21-28); Hematocrit - POC 29 % PCV (42-52); Hemodilution- POC Yes; Hemoglobin Calculated - POC 9.8; Ionized Calcium - POC 1.27 mmol/L (1.15-1.33); Lactate - POC 2.55 mmol/L (0.36-0.75); O2 Saturation %Calculated-POC 99.9 % (94-98); PCO2 - POC 41 mmHg (35-48); PO2 - POC 266 mmHg (83-108); Potassium - POC 3.7 mmol/L (3.5-5.1); Sodium - POC 137 mmol/L (136-145); Specimen Type - POC Arterial; pH - POC 7.36 (7.35-7.45)
[2025-07-25 12:36] LABS: ACT-LR - POC 149 Seconds (116-155)
--- NOTE | 2025-07-25 13:26 | W.SUR.POST ---
Surgical Immediate Post Op
Note
Pre Op Diagnosis: Occlusion of left common femoral artery with concern for dissection flap following Impella placement, acute limb threatening arterial ischemia
Post Op Diagnosis: Occlusion of left common femoral artery with concern for dissection flap following Impella placement, acute limb threatening arterial ischemia
Procedure Performed: Emergent left femoral artery cutdown, mechanical thrombectomy of left SFA and left profunda, interposition graft from left common femoral artery to left SFA with anastomosis of profunda branch x 2
Primary Surgeon: Tru Guzman III, MD
assistant professor sculpture: Tamara Odom, STUDENT SUCCESS ADVISOR-C
Anesthesia: GETA
Estimated Blood Loss: 200 mL
Fluids: See anesthesia flowsheet
Drains/Shunts: N/A
Specimens/Cultures: Left common femoral artery, left SFA and profunda acute thrombus
Doppler/Duplex/Angio (Y/N): Y, Doppler
Complications: None
Operative Findings: Left common femoral and SFA arterial tear requiring reconstruction via graft from left common femoral artery to left SFA with punch out for anastomosis of profunda branch x 2, postoperatively patient had Doppler signal left AT,
DP, and PT
[2025-07-25 13:52] LABS: Glucose - Point of Care 230 mg/dl (70-99)
--- NOTE | 2025-07-25 13:53 | PHA.VAN.IN ---
Assessment
- Assessment
Renal Function: Appears similar to baseline
Concomitant Antimicrobials: piperacillin/tazobactam
AUC Dosing Plan
- Dosing Variables
Dosing Weight (kg): 64-71
Dosing CrCl (ml/min): 61
Vd coefficient (L/kg): 0.7
Utilized IBW and TBW for dosing weight range
- Empiric Dosing
Maintenance Regimen: Vanc 1250mg Q24H - first dose now then 07/26 06
Estimated AUC (mcg*h/mL): 476 - 528
Estimated Peak (mcg*h/mL): 34.3 - 38.1
Estimated Trough (mcg/ml): 10 - 11
Estimated Half Life (H): 12.6
- Monitoring
No levels ordered at this time: consider levels in next few days
Pharmacokinetics Vancomycin I
- -
Patient Age: 75
Patient Sex: Male
Vancomycin Day #: 1
Indication: Skin And Soft Tissue
Requesting Provider: Jorge Odom
Pertinent Antimicrobial Allergies:
NKDA
Height / Weight:
Height 5 ft 9 in
Actual Weight 64.3 kg
Pertinent Past Medical History: DM
- Vital Signs / Lab Results
Temp Pulse Resp BP Pulse Ox
98.1 F 66 21 91/32 100
07/25/25 08:00 07/25/25 13:45 07/25/25 13:45 07/25/25 13:45 07/25/25 13:45
Lab Results - Hematology
07/24/25 07/25/25
18:45 04:29
WBC 14.4 H 13.2 H
Lab Results - Chemistry
07/23/25 07/24/25 07/24/25
04:36 04:40 18:45
BUN 18 18 14
Creatinine 1.0 1.0 0.9
Estimated Creat Clear 57 55 61
Albumin 3.5
07/25/25
04:29
BUN 14
Creatinine 0.9
Estimated Creat Clear 61
Albumin 3.0 L
07/24/25 07/24/25 07/25/25
18:45 20:00 00:29
Lactic Acid 2.3 H Cancelled 1.4
07/25/25
04:29
Lactic Acid 0.9
Microbiology Results
07/18/25 10:33 Blood Culture - Final
Blood/Venous No Growth - Final Report
07/18/25 10:33 Blood Culture - Final
Blood/Venous No Growth - Final Report
--- NOTE | 2025-07-25 14:18 | PTCARENOTE ---
received pt from PACU ~1400, pt remains in sinus rhythm w HR 60's, BP via left radial ben 130-140/50's, + doppler tp/dp pulses bilaterally. NIH score remains 2. pt w episode of projectile brown emesis. Hospitalist made aware. NGT placed to right
nare and xray chest and abd completed as ordered. Right femoral sheath maitnained. NORMA dressing to left femoral a scant amount of red drainage. Midline dressing changed by VAT RN. Guzman draining yellow urine. Bear hugger applied to pt as ordered by
vascular. Pts at bedside and plan of care reviewed, questions encouraged.
[2025-07-25] MEDS: NOVOLOG vial 2 UNITS SC (14:25)
[2025-07-25 14:26] LABS: Hematocrit 27.5 % (39.0-52.0); Hemoglobin 9.7 g/dL (13.0-18.0)
[2025-07-25 14:33] LABS: INR 1.39; PT 17.4 Sec (11.4-14.6)
[2025-07-25 14:34] LABS: APTT 32.4 Sec (23.4-35.0)
[2025-07-25 14:35] LABS: LDH 324 U/L (120-246)
[2025-07-25 14:37] LABS: Blood Urea Nitrogen 14 mg/dl (9-20); Calcium 8.1 mg/dl (8.4-10.2); Carbon Dioxide 27 mmol/L (22-30); Chloride 103 mmol/L (98-107); Estimated Creatinine Clearance 73 ml/min; Glucose 256 mg/dl (70-99); Potassium 4.4 mmol/L (3.5-5.1); Sodium 134 mmol/L (135-145); eGFR > 60.00
[2025-07-25] MEDS: LASIX 40 MG PO (15:08)
[2025-07-25] MEDS: LIPITOR 80 MG PO (15:08)
[2025-07-25] MEDS: PROSCAR 5 MG PO (15:08)
[2025-07-25] MEDS: FLOMAX 0.4 MG PO (15:08)
[2025-07-25] MEDS: ASPIR LOW (ENTERIC COATED) 81 MG PO (15:08)
[2025-07-25] MEDS: LANTUS 0.22 UNITS SC (15:08)
[2025-07-25] MEDS: PROTONIX 40 MG PO (15:08)
[2025-07-25] MEDS: ZETIA PO (15:09)
[2025-07-25] MEDS: VASOTEC PO ×2 (15:09→21:04)
[2025-07-25] MEDS: TOPROL XL PO (15:09)
[2025-07-25] MEDS: ZOSYN 50 IV ×2 (15:10→21:06)
[2025-07-25] MEDS: VANCOCIN 275 MG IV (15:11)
[2025-07-25] MEDS: PLAVIX 75 MG PO (15:19)
[2025-07-25] MEDS: NSS 500 VEN SHEATH (15:19)
[2025-07-25] MEDS: NSS 1000 IV (15:19)
--- NOTE | 2025-07-25 15:25 | CM ---
pt back to vasc OR for thrombect/cut down -L-TRACK SERVICE PERSON/L-SFA. cm following
[2025-07-25] MEDS: LASIX 40 MG IV (15:36)
[2025-07-25 18:37] LABS: Glucose - Point of Care 279 mg/dl (70-99)
[2025-07-25 18:43] LABS: LDH 335 U/L (120-246)
--- NOTE | 2025-07-25 18:50 | OR.RPT ---
Operative Report
Operative Report
Date of Operation: 07/25/2025
Pre Op Diagnosis: Left femoral artery injury following Impella removal
Post Op Diagnosis: Left femoral artery injury following Impella removal
Procedure:
1. Complex left femoral artery reconstruction:
Left common femoral artery to superficial femoral artery interposition graft using 8 mm Dacron limb
Reimplantation of left profunda femoral artery branches (x 2) onto the 8 mm Dacron interpostition graft.
2. Thrombectomy of left superficial femoral artery and popliteal artery
3. Thrombectomy of left profunda femoral artery
Surgeon: Tru Guzman III, MD
Kitchen Assistant: DORY Vo
Anesthesia: General
Complications: None
Estimated Blood Loss: 50 cc
History and Indications for Procedure: 75-year-old male who underwent high risk PCI on 07/24/25 that resulted in the need for Impella insertion via the left femoral artery. During removal of the Impella device today he was noted to have a poor flow
distal to the insertion site and evidence of bleeding at the access site. I was called emergently to assist with the access site in the left groin. A 14Fr sheath had been inserted through the left femoral artery access and with manual pressure on
the groin this controlled the bleeding.
Procedure in Detail: Joel Tripp was correctly identified and was supine on the operating table. After adequate induction of general anesthesia his abdomen, pelvis and bilateral groins were prepped and draped in the usual sterile fashion. The
14 Swiss sheath was prepped into the field. He received preoperative antibiotics. A time out procedure was performed with the nursing and anesthesia staff confirming the patient's identity as well as the nature and laterality of the procedure.
While holding manual pressure on the groin, I made a vertical incision in the left groin centered on the 14 Swiss sheath. Using electrocautery and sharp dissection I exposed the common femoral artery at the inguinal ligament. Proximal control was
obtained on the common femoral artery under the inguinal ligament with a vessel loop. I then continued dissection distally using electrocautery and sharp dissection. Side branches were controlled with vessel loops as they were encountered. The
femoral bifurcation was identified. The common femoral artery was heavily calcified throughout and there was bleeding identified from the common femoral artery away from the sheath insertion site. On inspection of the common femoral artery we
identified a full thickness tear over the lateral wall in the region of heavy calcification. This was controlled with digital pressure while we continued dissection. The 14 Fr sheath insertion site was exposed and was at the proximal superficial
femoral artery. The superficial femoral artery distal to this was soft and was controlled with a vessel loop. The profunda femoral artery was exposed. Two large individual branches were identified and controlled individually with vessel loops.
Systemic heparin was administered. After confirming a therapeutic ACT, the proximal and distal vessel loops were applied. The 14 Swiss sheath was removed. I extended the arterial access site on the SFA with Loza scissors towards the common
femoral artery. There was full thickness defect in the posterior wall of the SFA just proximal to the sheath insertion site. I did not think that the artery could be repaired with an endarterectomy given the injuries encountered and therefore I made
the decision to perform a complete reconstruction as follows.
A Derra clamp was placed on the distal left external iliac artery under the inguinal ligament. I transected the superficial femoral artery just distal to the sheath insertion site. I transected the common femoral artery at a soft spot proximal to
the heavily calcified plaque. The 2 large profunda femoral artery branches were transected off of the common femoral artery at their origins. The intervening segment of common femoral artery and proximal superficial femoral artery was completely
removed and sent to pathology. Sluggish backbleeding was encountered from the superficial femoral artery. #4 and #3 Nicolette balloons were individually passed distally down the superficial femoral artery and significant amount of acute thrombus was
retrieved. I passed the Nicolette balloon catheters down the superficial femoral artery and popliteal artery until no additional thrombus was returned on 3 sequential passes. The superficial femoral artery was then flushed with heparinized saline
solution. Similarly I passed a #3 Nicolette balloon individually down the profunda femoral artery branches and returned acute thrombus. The balloon catheter was advanced down the profunda branches until no thrombus was returned on 3 sequential
passes. The profunda femoral artery branches were then flushed with heparinized saline solution. The thrombus was sent to pathology. At this point there was brisk backbleeding identified from the superficial femoral artery and both the profunda
femoral artery branches. I placed a profunda clamp on the superficial femoral artery. Bulldog clamps were placed on the profunda femoral artery branches.
I then brought onto the field an 8 mm Dacron graft. The proximal end of the graft was sewn end to end to the common femoral artery with a running 5-0 Prolene suture. At the completion of the anastomosis I released the Derra clamp. There was an
excellent pulse in the gambell common femoral artery and the 8 mm graft. The suture line was closely inspected for hemostasis which was achieved. While pressurized the graft was marked for the appropriate length to sew the distal anastomosis to the
superficial femoral artery. The proximal clamp was then reapplied. The graft was shortened appropriately. An end-to-end anastomosis was created to the superficial femoral artery using a running 5-0 Prolene suture. Prior to the completion of the
anastomosis the superficial femoral artery was allowed to backbleed and the graft was allowed to forward bleed. The area under the anastomosis was flushed with heparinized saline solution to remove any potential thrombus or debris. The anastomosis
was completed. The proximal and distal clamps were removed. There was an excellent pulse in the graft as well as within the superficial femoral artery distal to the anastomosis. The suture line was closely inspected for hemostasis which was
achieved.
I then reapplied the proximal and distal clamps. A 5 mm aortic punch was used on the graft to create two separate sites for the profunda branch reimplantation. 2 separate punches were performed. Each profunda branch was reimplanted individually
using a running 6-0 Prolene suture. At the completion of the anastomoses the bulldog clamps were removed as well as the proximal and distal clamps on the common femoral artery and superficial femoral artery. Strong pulses were easily palpable in
the graft, superficial femoral artery and both profunda femoral artery branches. Excellent quality Doppler signals were identified throughout. All suture lines were closely inspected for hemostasis which was achieved.
Satisfied with this technical result we concluded the procedure. Protamine was administered. Hemostasis was achieved in the wound bed. The wound was irrigated with copious amounts of warm saline solution. The wound was then closed in layers and
sterile dressings were applied.
The patient tolerated the procedure well with no immediate complications.
Attestation: I was present and responsible for the entire procedure
Signed:
Tru Guzman III, MD
Vascular Surgery
[facility]
--- NOTE | 2025-07-25 19:00 | PTCARENOTE ---
report received from previous RN, walking rounds done. pt in bed, AAOx4. NIH scale 2 for mild slurring and left sided facial droop, unchanged from previous. pt flat in bed, R fem venous sheath in place w KVO infusing, tri dressing in place to L
groin. bilateral groin sites stable, soft, CDI. DP pulses confirmed w doppler. zain hugger in place to LE's. SR on monitor, HR 60s-70s. L radial art line in place. SBP 100s-110s. Amio gtt infusing @ 0.5mg. bilateral breath sounds present. POX 93% on
room air. hua catheter intact, draining CYU. +BS. NGT in place to LIS. R midline catheter in place and patent. turning/repositioning pt Q2H and as needed. see worklist for full assessment, VS, and interventions.
[2025-07-25] MEDS: NOVOLOG FLEXPEN-LOW RESISTANCE 3 UNITS SC (19:02)
--- NOTE | 2025-07-25 19:02 | ITS.CL.PN ---
[employer] - Procedure Note
Procedure
Procedure Note:
CARDIAC CATHETERIZATION REPORT
Date of Procedure: 07/25/25
Referring: Dr. Mynor Bull MD
Indication: Impella removal
PROCEDURE: Impella removal under fluoroscopic guidance
MODERATE SEDATION: 45 minutes of moderate sedation was utilized. An independent medical records administrator was present to assist with and help manage the patient's level of consciousness and physiologic status.
PROCEDURE NARRATIVE: The patient's Impella groin site was prepped with Betadine. Under fluoroscopic visualization, the Impella was turned down to P1 and pulled into the descending aorta. Via the Impella sideport, a 0.035' wire was advanced to the
ascending aorta and the Impella and Impella sheath were walked out over the wire. A 14 Samoan Cook sheath was inserted over the wire without difficulty to achieve hemostasis. Injection through the sideport demonstrated severe calcification of the
SFA with poor distal runoff. Given the limited runoff, it could not be definitively determined if the stick site was in the SFA or MARZIPAN MAKER. Furthermore, it was unclear if the poor runoff was due to occlusion by the 14 Samoan sheath versus vascular
injury versus thrombus. Thus, we attempted to exchanged the 14 Samoan sheath for an 11 Samoan sheath to resolved possible sheath occlusion and allow for diagnostic angiography. The 11 Samoan sheath did not track easily over the wire. To avoid vessel
injury, a 7 Samoan sheath was instead placed without difficulty, through which the original J-wire was exchanged for an Amplatz Extrastiff. The 7 Samoan sheath was then replaced with a 14 Samoan sheath to achieve hemostasis. Repeat angiography
through the 14F sheath demonstrated mild extravasation at the arteriotomy site which appeared to be in the SFA, as well as complete loss of the previously poor distal flow. The patient remained hemodynamically stable throughout. Given the SFA
location of the stick site and the poor distal flow, the vessel did not appear to be amenable to either percutaneous closure or manual hemostasis. Thus, vascular surgery was consulted and the patient was transported without incident to an adjacent
operating room for vascular repair. Please see separate operative report.
Signed: Matthew John MD, PhD
--- NOTE | 2025-07-25 21:00 | PTCARENOTE ---
Dr. Guzman updated on pt's BP - instructed RN to keep AMP 70-90. Levo gtt started @ 2mcg.
--- NOTE | 2025-07-25 23:00 | PTCARENOTE ---
no changes in assessment. VSS. SR 60s. Levo gtt infusing @ 2mcg. POX 99% on room air. bilateral groins stable. distal pulses confirmed by doppler.
[2025-07-25 23:54] LABS: Glucose - Point of Care 147 mg/dl (70-99)
[2025-07-26] VITALS (22 sets, daily range): BP systolic 99–143; BP diastolic 42–66; PULSE 66; BMI 21.8
[2025-07-26] MEDS: ZOSYN 50 IV ×5 (02:08→23:50)
[2025-07-26] MEDS: NSS 1000 IV (02:08)
[2025-07-26] MEDS: NOVOLOG FLEXPEN-LOW RESISTANCE SC ×3 (03:44→17:08)
--- NOTE | 2025-07-26 04:00 | PTCARENOTE ---
no changes in assessment. VSS. SR 60s. Levo gtt remains infusing @ 2mcg. POX 97% on room air. bilateral groins stable. distal pulses confirmed by doppler.
[2025-07-26 04:25] LABS: ALT (SGPT) 18 U/L (0-50); AST (SGOT) 48 U/L (17-59); Albumin 2.6 g/dl (3.5-5.0); Alkaline Phosphatase 40 U/L (38-126); Blood Urea Nitrogen 13 mg/dl (9-20); Calcium 8.2 mg/dl (8.4-10.2); Carbon Dioxide 31 mmol/L (22-30); Chloride 103 mmol/L (98-107); Estimated Creatinine Clearance 58 ml/min; Glucose 115 mg/dl (70-99); LDH 324 U/L (120-246); Magnesium 1.9 mg/dl (1.6-2.3); Potassium 3.5 mmol/L (3.5-5.1); Sodium 134 mmol/L (135-145); Total Protein 4.7 g/dl (6.3-8.2); eGFR > 60.00
[2025-07-26 04:26] LABS: Hematocrit 25.6 % (39.0-52.0); Hemoglobin 8.8 g/dL (13.0-18.0); Mean Corp Hgb Conc. 34.4 g/dL (33.0-37.0); Mean Corpuscular Volume 88.0 fL (80.0-94.0); Platelet Count 122 10^3/uL (130-400); Red Cell Dist. Width 14.2 % (11.5-14.5)
[2025-07-26 04:37] LABS: INR 1.26; PT 16.1 Sec (11.4-14.6)
[2025-07-26 04:38] LABS: APTT 33.2 Sec (23.4-35.0); Fibrinogen 260 MG/DL (199-459)
[2025-07-26 04:40] LABS: D-Dimer 2.20 ug/mlFEU (0.00-0.50)
[2025-07-26] MEDS: VANCOCIN 275 MG IV (05:57)
[2025-07-26] MEDS: CARAFATE SUSPENSION PO ×4 (07:29→19:53)
--- NOTE | 2025-07-26 08:00 | PTCARENOTE ---
Patient received from physician coder resting in bed, sleepy but arousable and appropriate. NIHSS performed, score 2, unchanged from prior it technical architect. NSR via cm, SaO2 @ 95% on RA. R fem venous sheath w/IVF infusing. NORMA to L groin site, old
drainage noted. B/L groins site, distal pulses obtainable via doppler. Wendy Hugger in place to LE. L radial arterial line present - leveled, flushed, and calibrated w/good waveform returned. NGT to LIWS, scant drainage. Guzman catheter to gravity.
Patient updated to plan of care, in agreement. See work list for full assessment, interventions performed, and intravenous infusions and titrations.
--- NOTE | 2025-07-26 08:45 | PTCARENOTE ---
Vascular surgeon and team at bedside, updated to status.
[2025-07-26 09:04] LABS: Glucose - Point of Care 81 mg/dl (70-99)
[2025-07-26] MEDS: PROTONIX IV 40 MG IV (09:05)
[2025-07-26] MEDS: NSS (PRESERVATIVE FREE) 10 ML IV (09:05)
[2025-07-26] MEDS: NOVOLOG FLEXPEN SC ×2 (09:05→13:33)
--- NOTE | 2025-07-26 09:05 | W.PN.VS ---
Addendum entered and electronically signed by Juan Strong MD 07/26/25 14:47:
Seen and examined with AMANDA Odom earlier this a.m. This is a late entry. Agree with findings as noted below. Left groin dressing clean dry and intact. No hematoma. Left foot warm with excellent dopplerable signals. Plan/as discussed and noted
below.
Original Note:
Today's Communication / Plan
-
Patient seen and examined at bedside with Dr. Juan Strong, below plan reviewed with attending.
Assessment/Plan
-
Assessment: 75-year-old male POD #1 Complex left femoral artery reconstruction: Left common femoral artery to superficial femoral artery interposition graft using 8 mm Dacron limb and reimplantation of left profunda femoral artery branches (x 2)
onto the 8 mm Dacron interpostition graft. Thrombectomy of left superficial femoral artery and popliteal artery. Thrombectomy of left profunda femoral artery.
Plan:
Can discontinue Guzman catheter from a vascular surgical perspective
From a vascular surgical perspective safe to initiate anticoagulation via heparin infusion if felt strong to do so from a cardiology standpoint
Continue neurovascular checks
Discontinue Wendy hugger
Subjective Data
-
Date of Service: July 26, 2025
Patient seen and examined at bedside, offers no complaints in regards to left groin. Did endorse nausea and vomiting which required NG tube placement.
Objective Data
-
Vital Signs
Temp Pulse Resp BP Pulse Ox
99.3 F 64 18 120/56 95
07/26/25 08:00 07/26/25 08:45 07/26/25 08:45 07/26/25 08:00 07/26/25 08:45
Intake and Output
07/25/25 07/26/25 07/27/25
06:59 06:59 06:59
Intake Total 891.1 / 891.1 1838.7 / 1945.4 106.7 / 106.7
Output Total 1840 / 184 2100 / 2140 40 / 40
Balance -948.9 / -948.9 -261.3 / -194.6 66.7 / 66.7
Intake:
IV fluids (Total) 541.1 / 541.1 1463.7 / 1570.4 106.7 / 106.7
Amio 233.6 / 233.6 283.7 / 300.4 16.7 / 16.7
Cardene 12.5 / 12.5
KVO 120 / 120 220 / 230 10 10
Levo 187.5 / 187.5 67.5 / 67.5 0 / 0
Nss 1,000 ml @ 80 mls/hr IV . 880 / 960 80 / 80
[id number] [facility] Rx#:[id number]
IV piggybacks 350 / 350 375 / 375
Output:
Gastrointestinal tube output ( 300 / 300
Total)
Preble Sump 300 / 300
Urine, Guzman 1839 1800 / 1840 40 / 40
Lab Results
07/26/25 03:44
07/26/25 03:44
Calcium 8.2 mg/dl (8.4-10.2) L 07/26/25 03:44
Phosphorus 4.8 mg/dl (2.5-4.5) H 07/18/25 04:04
Magnesium 1.9 mg/dl (1.6-2.3) 07/26/25 03:44
Total Bilirubin 2.1 mg/dl (0.2-1.3) H 07/26/25 03:44
Direct Bilirubin 0.4 mg/dl (0.0-0.4) 07/18/25 04:04
AST 48 U/L (17-59) 07/26/25 03:44
ALT 18 U/L (0-50) 07/26/25 03:44
Alkaline Phosphatase 40 U/L (38-126) 07/26/25 03:44
Total Protein 4.7 g/dl (6.3-8.2) L 07/26/25 03:44
Albumin 2.6 g/dl (3.5-5.0) L 07/26/25 03:44
Physical Exam
-
No apparent distress, resting in bed comfortably
No tachycardia
No dyspnea on room air
Left groin tri dressing clean, dry, and intact, no evidence of hematoma, all surrounding compartments soft, left foot warm with Doppler DP signal
--- NOTE | 2025-07-26 09:56 | PHA.VAN.FU ---
Vancomycin Assessment / Plan
- Assessment
Renal Function: Stable
WBC's are: Trending Down
In the past 24 hrs, patient has been: Afebrile
Concomitant Antimicrobials: piperacillin/tazobactam
- Dosing Plan
Continue: Vanc 1250mg Q24H
- Monitoring Plan
No level(s) ordered at this time: consider levels in next few days
- Follow Up
Pharmacy will continue to follow.
Vancomycin Follow UP
- -
Patient Age: 75
Patient Sex: Male
Vancomycin Day #: 2
Indication: Skin And Soft Tissue
Requesting Provider: Jorge Odom
Pertinent Antimicrobial Allergies:
NKDA
Height / Weight:
Height 5 ft 9 in
Actual Weight 66.8 kg
Pertinent Past Medical History: DM
- Vital Signs / Lab Results
Temp Pulse Resp BP Pulse Ox
99.3 F 66 19 128/60 96
07/26/25 09:00 07/26/25 09:00 07/26/25 09:00 07/26/25 09:00 07/26/25 09:32
Lab Results - Hematology
07/24/25 07/25/25 07/26/25
18:45 04:29 03:44
WBC 14.4 H 13.2 H 11.3 H
Lab Results - Chemistry
07/24/25 07/24/25 07/25/25
04:40 18:45 04:29
BUN 18 14 14
Creatinine 1.0 0.9 0.9
Estimated Creat Clear 55 61 61
Albumin 3.5 3.0 L
07/25/25 07/26/25
14:17 03:44
BUN 14 13
Creatinine 0.8 1.0
Estimated Creat Clear 73 58
Albumin 2.6 L
07/24/25 07/24/25 07/25/25
18:45 20:00 00:29
Lactic Acid 2.3 H Cancelled 1.4
07/25/25 07/25/25 07/25/25
04:29 14:16 14:48
Lactic Acid 0.9 1.8 1.6
07/25/25 07/26/25 07/26/25
18:22 03:44 05:56
Lactic Acid 1.6 0.8 0.8
--- NOTE | 2025-07-26 10:11 | W.PN.CD ---
Addendum entered and electronically signed by Murtaza Bull DO 07/26/25 15:50:
Response to CDI query: Troponin elevation is due to NSTEMI given peak and fall of troponin after presentation in spite of persistent atrial flutter.
Original Note:
Today's Communication / Plan
-
Pull femoral venous sheath.
D/C A-line.
D/C amiodarone gtt.
Start metoprolol succinate 12.5 mg daily.
Discuss DOAC with vascular sugery.
Diurese.
Monitor H/H given increase in weight and likely dilution vs. post operative blood loss.
Impression / Plan
-
Impression/Plan: 75 y/o male with a history of tobacco abuse with COPD, severe multivessel CAD with ICMO/HFmEF (LVEF 40-45%), HTN, HLD, PUD/GIB and IDDM1 (since age 37) admitted with BEAR/orthopnea with hypoxic respiratory failure and new atrial
flutter and elevated troponin, course complicated by DKA and shock, now s/p atrial flutter ablation and pending high risk PCI of RCA after CTS declined CABG.
Upper Cutter Out: Michael
#Shock
-Resolved.
#Multivessel CAD
-New diagnosis (this admission).
-[facility] 07/17/2025: STITCHER HAND mid LAD, STITCHER HAND proximal LCx, 80-90% ostial RCA, 70% mid RCA; LVEDP 14 mmHg at 60.8 kg.
-s/p complex PCI after surgical turndown. IVL + PCI to ostial 80-90% ostial RCA lesion (Xience Skypoint 3.5 x 15 SACHIN), IVL + CSI + PCI to 80% mid RCA lesion (Xience Skypoint 3.5 x 38 SACHIN).
-PCI complicated by slow reflow in dRCA after second round of CSI. Impella CP placed emergently.
-Impella removal complicated by focal dissection after attempt at rewiring for percutaneous closure (arteriotomy in the low HAND MOUNTER/SFA, diseased artery, multiple sheath exchanges), requiring surgical repair (see below).
-Continue ezetimibe and statin. Goal LDL < 55.
-Continue aspirin and clopidogrel. Plan to pull venous femoral sheath today. Discuss DOAC with vascular surgery. If they are satisfied with surgical stability, we will start apixaban 5 mg BID and discontinue aspirin.
#Femoral artery dissection
-Acute, due to combination of emergent Impella placement and severely diseased femoral vessels followed by attempt at re-wiring for percutaneous closure.
-S/P complex femoral artery reconstruction with #8 Dacron graft with reimplantation of two profunda femora branches (07/25/2025) and thrombectomy.
-Management per vascular surgery.
#Atrial flutter/Atrial fibrillation
-New diagnosis, noted on recent monitor (07/13/2025).
-Atrial flutter ablation 07/20/2024.
-Remains in sinus rhythm.
-Rate/rhythm control with amiodarone gtt. D/C amiodarone gtt and restart metoprolol succinate 12.5 mg daily.
-CHADSVASC = 8 (HTN, HF, DM,carotid dz, CVA (x2), age x2).
-Vascular surgery ok with heparin gtt. We will discuss initiation of DOAC after removing femoral venous sheath.
#HFmrEF
-Acute. TTE 07/17/2025: LVEF 40%, akinetic apex
-Echo from 05/2025 with EF of 50-55% with aneurysmal apex/septal wall, hypokinesis of the inferolateral wall.
-LVEDP 14 mmHg at 60.8 kg.
-GDMT as hemodynamics will tolerate:
-Diuretics: Furosemide 40 mg PO daily.
-Beta da: Metoprolol succinate 12.5 mg daily.
-ACEI/ARB/ARNi: Enalapril 5 mg PO daily.
-MRA: None.
-SGLT2i: Dapagloflozin 10 mg daily -- ON HOLD.
-ICD: Not currently indicated.
#Stroke Alert
-Occurred after cardiac catheterization 07/17/2025. Patient had been noted to be hypotensive. Besides having catheterization patient also with known carotid artery disease and atrial fibrillation/atrial flutter.
-Patient seen by neurology currently stable.
-Patient did not undergo MRI, so diagnosis of CVA is not confirmed.
#Anemia
-Relatively acute.
-Post operative (with associated hematoma/extravasation seen on CT abdomen) and dilutional.
-Monitor H/H with continued diuresis.
#HTN
-Chronic, stable.
-Norepinephrine discontinued earlier this morning.
#Mild
-Chronic, stable.
#Carotid Disease:
-Chronic, stable.
-Bilateral disease on US - 50-69%.
-Follows with Dr. Guzman.
-Statin/risk factor modification.
#Alcohol Abuse
-Chronic. reports 6 drinks/daily.
Critical Care Time = 45 minutes.
Subjective/Interval History:
Yesterday, the patient underwent Impella removal under fluoroscopy. This was complicated by loss of flow in the SFA/profunda.
The patient underwent femoral artery replacement due to severe compromise of the diseased femoral artery.
Weight up 2.5 kg from yesterday.
SaO2 96% on RA.
EKG reviewed with significant improvement in inferior JOSÉ MIGUEL - now resolved.
Hbg down to 8.8 (from 9.7).
DATA:
Cardiac Catheterization, 07/17/2025:
CONCLUSIONS
1. Right dominant circulation with dense calcification throughout the entire coronary tree, a STITCHER HAND of the mid/distal LAD with bridging collaterals to the apical vessel, a chronic total occlusion of the nondominant circumflex and its proximal margin
and an 80-90%, densely calcified lesion in the ostium of the RCA followed by a densely calcified 70% lesion in the mid vessel.
2. Mildly elevated filling pressures (LVEDP = 14 mmHg at 60.8 kg).
3. Stenotic and calcified right radial artery with some discomfort placing a 6 Swiss radial sheath.
TTE, 07/17/2025:
SUMMARY
1. Limited follow up study. Patient in atrial flutter with rapid ventricular response.
2. Mild global hypokinesis with aneurysmal/akinetic apex. LVEF estimated at 40%.
3. Mild left atrial enlargement.
4. The cardiac valves were not fully evaluated.
5. Compared to echocardiographic study dated 06/10/2025 rapid atrial flutter replaces NSR. LVEF has fallen from 50-55% to 40%. Global hypokinesis is new. The apex is similar.
Head CT, 07/17/2025:
IMPRESSION:
No acute intracranial abnormalities.
Small old lacunar infarcts again seen in the bilateral basal ganglia and left thalamus.
Findings again seen compatible with diffuse cortical atrophy with nonspecific white matter changes as described above.
CTA Head/Neck, 07/17/2025:
IMPRESSION:
1. No large vessel occlusion, dissection, or aneurysms appreciated.
2. Heavily calcified carotid bulbs and proximal internal carotid arteries likely causing 50-69% luminal narrowing bilaterally.
3. Multilevel cervical spondylosis.
CT Chest, 07/17/2025:
IMPRESSION:
1. Trace right pleural effusion with irregular adjacent airspace opacities, most likely representing atelectasis and/or scarring.
2. Mild centrilobular emphysema within the upper lobes.
3. Normal caliber thoracic aorta with small amount of calcified plaque within the arch.
4. Chronic compression deformity of T7 vertebral body. Age-indeterminate mild compression deformities along the superior endplates of T2 and T3.
5. Bilateral intrarenal calculi.
EP/Ablation, 07/20/2025:
Summary:
Successful SVT ablation with typical atrial flutter ablation with cavo-tricuspid isthmus line of block formation.
Cardiac Catheterization/PCI, 07/24/2025:
CONCLUSIONS
1. Right dominant circulation with a STITCHER HAND of the ostial circumflex, luminal irregularities in the proximal and mid LAD with a STITCHER HAND of the mid/distal LAD immediately after D3, a densely calcified 80-90% lesion in the ostium of the RCA status post
successful intracoronary lithotripsy (shockwave 3.5 x 12 balloon) and PCI (Xience Skypoint 3.5 x 15 SACHIN, postdilated with a 3.5 NC balloon) and a densely calcified 80% lesion in the mid RCA status post CSI, intracoronary lithotripsy, repeat CSI
complicated by slow reflow and hypotension requiring Impella placement, ultimately status post accessible PCI (Xience Skypoint, postdilated with a 3.5 NC balloon) with reduction in stenosis to 0%, restoring CURTIS-3 flow.
2. Placement of Impella CP for hemodynamic support.
3. Intraprocedural consultation with interventional cardiology and CT surgery colleagues.
Physical Exam
Vital Signs/Labs
Vital Signs
Temp Pulse Resp BP Pulse Ox
37.4 C 67 18 137/64 96
07/26/25 10:00 07/26/25 10:00 07/26/25 10:00 07/26/25 10:00 07/26/25 10:00
07/24/25 07/25/25 07/26/25
11:59 11:59 11:59
Actual Weight 64.3 kg 66.8 kg
07/26/25 03:44
07/26/25 03:44
PT 16.1 Sec (11.4-14.6) H 07/26/25 03:44
INR 1.26 07/26/25 03:44
APTT 33.2 Sec (23.4-35.0) 07/26/25 03:44
Magnesium 1.9 mg/dl (1.6-2.3) 07/26/25 03:44
Triglycerides 63 mg/dl (10-149) 07/16/25 07:38
LDL Cholesterol, Calc 56 mg/dl 07/16/25 07:38
VLDL Cholesterol, Calc 12 mg/dl (0-30) 07/16/25 07:38
HDL Cholesterol 64 mg/dl 07/16/25 07:38
07/15/25
06:50
Zzp-N-Jaizxujvbhu Pept 3770
LAB Results
07/24/25
16:37
Troponin I 0.563 H*
Physical Exam
Constitutional: No acute distress and Comfortable
EENT: Anicteric and Moist mucous membranes
Cardiovascular: Rhythm & rate is regular, Pedal edema is absent, JVD pressure is normal, S1S2 is normal and Murmur/rub/gallop absent
Respiratory: Respiratory effort normal, Lungs clear to auscul., Wheeze Absent, Crackles Absent and Rhonchi Absent
GI: Soft, Distention absent, Flat, Non tender and Normal bowel sounds
Neuro/Psych: AO x 3
Other: Cath Site (Right femoral cath site is mildly ecchymotic. Left surgical site managed by vascular surgery.)
Data Reviewed
-
Date of Service: July 26, 2025
Medical Decision Making: Reviewed Test Results, Independent Historian Assessment and Test Interpretation
EKG: Tracing Personally Visualized and interpreted and Report Reviewed by me
Echo: Tracing Personally Visualized and interpreted and Report Reviewed by me
X-Ray/CT/US/MRI/NUC/PET: Image Personally Visualized and interpreted and Report Reviewed by me
Medical Tests (PFT, Pathology etc): Image Personally Visualized and interpreted and Report Reviewed by me
Labs: Labs Reviewed by me
Old Records: Reviewed
--- NOTE | 2025-07-26 10:15 | PTCARENOTE ---
Dr. Tran at bedside, updated to status.
[2025-07-26] MEDS: PLAVIX 75 MG PO (11:09)
[2025-07-26] MEDS: FLOMAX 0.4 MG PO (11:09)
[2025-07-26] MEDS: ASPIR LOW (ENTERIC COATED) 81 MG PO (11:09)
[2025-07-26] MEDS: ZETIA 10 MG PO (11:09)
[2025-07-26] MEDS: TOPROL XL 12.5 MG PO (11:09)
[2025-07-26] MEDS: LASIX 40 MG PO (11:09)
[2025-07-26] MEDS: PROSCAR 5 MG PO (11:10)
--- NOTE | 2025-07-26 11:40 | PN.DE.MGMTRT ---
Insulin Management
- -
07/26/2025: Diabetes Management Follow up
Patient admitted 07/15 with c/o increasing SOB for past two days, found to be in A flutter, mild heart failure, acute hypoxic respiratory failure, possible non-ST elevation TN (Troponin peaked at 2).
PMH: CAD, ICM, CHF w/ mildly reduced EF, mild , HTN, HLD, COPD, gastric ulcers, HH, GERD, daily alcohol use, tobacco abuse, CVA 01/2015 on Plavix, colon polyps, urinary retention requiring self-catheterization, erectile Dysfunction, falls,
pneumothorax and T1DM- was dx at 37 years old.
Patient was inpatient 06/13 to 06/18 with acute change in mental status, encephalopathy. Prior to admission was taking NPH 26 units in AM and 16 units @ HS. A1C 8.4%, cr 1.1 eGFR >60.
States he was diagnosed with type 1 diabetes requiring insulin at age 37. They both state he is followed by his primary doctor, Bobo, for diabetes management. Today states that he did see the FAMILY ASSISTANT at [facility]
just once. He has been on NPH and was recently ordered NovoLog but told only to take if glucose > 300. Discussed at length importance of glucose control and action of Lantus. He states he does not recall ever being on Lantus but is agreeable to
try.
He was found to be in DKA after fall 07/17, glucose 594. Transferred to ICU and insulin infusion - DKA protocol started and transitioned off on 07/18 to SQ insulin
07/25 Fasting glucose 169. Patient is again NPO. Should receive AM lantus after procedure. When diet resumed should resume NovoLog to 6 units AC after the procedure. Cont low corrective insulin.
07/26 Patient is awake alert and oriented, not at bedside today. Received AM lantus at 3pm yesterday, glucose range 230 at 12 noon, 115 @ HS and Fasting today 81. Patient NPO at time of my visit with NG tube. Discussed with nurse to give
lantus at 12 noon today as yesterdays dose was 3pm. When diet resumed will resume 6 units novolog AC and continue lantus 22 units in AM (will give AM dose at 9am tomorrow).
Discussed with nurse. Will cont to follow.
07/24/25 Reviewed discharge medication with pt's as she seemed confused about the 2 different types of insulin patient will be taking after discharge
Instructed Pt's to discard the old NPH insulin that she has at home prior to patient being discharged so she doesn't get herself confused.
Diabetes History
- -
Type of Diabetes: 2 requiring insulin
Pre-Admission Diabetes Regimen
07/25/25 07/26/25
14:17 03:44
Creatinine 0.8 1.0
Lab Results
Hemoglobin A1c 8.4 % (4.0-5.9) H 07/16/25 07:38
Insulin Pump Settings
IP Diabetes Regimen
07/25/25 07/25/25 07/25/25
13:51 14:17 18:34
Glucose 256 H
POC Glucose 230 H 279 H
07/25/25 07/26/25 07/26/25
23:53 03:44 09:03
Glucose 115 H
POC Glucose 147 H 81
Meal type: Breakfast
Patient Education
[2025-07-26] MEDS: VASOTEC PO ×2 (12:00→19:52)
--- NOTE | 2025-07-26 12:34 | CM ---
Reviewed chart. Met with and Mrs. Tripp to review discharge plans. He states he is feeling okay. We need to see his functional level when he can start physical and occupational therapy to see if he will have any skilled care needs. Prior to
admission he resides with his spouse in a two story home with one step to enter. He has a full flight of steps to get to bedroom/full bathroom. He has a powder room on the first floor. Prior to admission he was independent with ambulation and
adls. He has a walker and single point cane at home but he is not using them. He has had [facility] and he is agreeable to [facility] again if needed.Telephone call to [facility] to make the referral. Sent the referral. He
states he has a prescription plan. If he needs some level of inpatient rehab. he will need pre-cert with his insurance. Medical work-up in progress. The discharge plan is to return home with his spouse and [facility] versus some level
of inpatient rehab. if indicated when medically stable.
[2025-07-26 12:37] LABS: Glucose - Point of Care 78 mg/dl (70-99)
--- NOTE | 2025-07-26 12:53 | W.PN.HOSP.TC ---
Addendum entered and electronically signed by Joaquín Trna MD 07/26/25 15:57:
ok transfer to IVU by cardio. PT OT melyal
Original Note:
Today's Communication/Plan
-
See plan
Assessment / Plan
Assessment / Plan
Physical exam:
General: Acutely ill
HEENT: Normocephalic, Atraumatic and Dry Mucous Membranes
Respiratory: Decreased breath sounds bilaterally; Negative Wheezes, Rales or Rhonchi
Cardiac: Regular Rhythm and S1/S2
GI: Soft, Nontender and Nondistended
Musculoskeletal: No Clubbing, No Cyanosis and No Edema
Neuro: Lethargic, no neurological deficit
Psych: Limited judgment and insight
A/P:
Cardiogenic shock:
Discussed with cardiology yesterday and status post removal of Impella
Possible left ventricular stunning
Persistent nausea and vomiting:
Obtained yesterday chest and abdomen x-ray and unremarkable
Remove NG tube today
Start diet
Continue PPI
Leukocytosis and recent Enterococcus UTI:
On IV Zosyn and vancomycin-started by vascular surgery
Acute blood loss anemia:
Blood transfusion as needed
Monitor hemoglobin
Occlusion of left common femoral artery with concern for dissection flap following Impella placement:
Status post complete left femoral artery reconstruction per vascular surgery on 07/25
Anticoagulation per vascular and cardiology
On anticoagulation by vascular surgery
Hypertensive urgency:
Weaning nicardipine drip
Continue other antihypertensives
Diabetes mellitus type 1:
Continue Lantus
Meal coverage insulin when able to take oral
Insulin sliding scale
Multivessel CAD:
Status post complex PCI to ostial RCA and mid RCA
On DAPT
On statin
Atrial flutter/fibrillation, new onset:
Cardiac monitoring
On beta-blockers
On amiodarone
Anticoagulation when cleared by cardiology
Acute HFrEF:
On oral diuretics
On GDMT
Altered mental status with stroke alert refugio-procedure:
Was felt to be hypotension related and stroke workup unremarkable
Mild aortic stenosis:
Serial echo as outpatient
Other medical diagnoses:
NSTEMI
Acute respiratory insufficiency
Hypotension
ROSSY
Hyponatremia
Leukocytosis
Recent Enterococcus faecalis UTI
Nicotine addiction
Alcohol use disorder
Hypertension
Hyperlipidemia
History of peptic ulcer disease
Urinary retention
DKA, resolved
DVT prophylaxis:
SCDs if okay with vascular. Considering anticoagulation
CODE STATUS:
Full code
Total time spent on today's encounter was 52 minutes which included time spent in counseling the patient/family regarding diagnosis and treatment plan as listed above, goals of care, and symptom management. Case was discussed with nursing staff,
specialists, and care coordinators/case management. All labs and imaging personally reviewed by me. Remainder the time spent in detailed review of previous records, lab data, imaging, and other medical provider documentation.
Anticipated Discharge: > 48 hours
Subjective/Interval History
-
Date of Service: July 26, 2025
Patient more alert today. No nausea or vomiting. No chest pain or shortness of breath
Objective Data
-
Labs:
Laboratory Results
07/26/25
03:44
WBC 11.3 H
Hgb 8.8 L
Hct 25.6 L
Plt Count 122 L D
PT 16.1 H
INR 1.26
APTT 33.2
Sodium 134 L
Potassium 3.5
Chloride 103
Carbon Dioxide 31 H
BUN 13
Creatinine 1.0
Glucose 115 H
Calcium 8.2 L
Total Bilirubin 2.1 H
AST 48
ALT 18
Alkaline Phosphatase 40
Vital Signs:
Vital Signs
Temp Pulse Resp BP Pulse Ox
99.0 F 63 17 143/61 98
07/26/25 12:00 07/26/25 12:30 07/26/25 12:30 07/26/25 12:00 07/26/25 12:00
I&O
07/25/25 07/26/25 07/27/25
06:59 06:59 06:59
Intake Total 891.1 / 891.1 1838.7 / 1945.4 816.8 / 816.8
Output Total 1840 / 1840 2100 / 2140 260 / 260
Balance -948.9 / -948.9 -261.3 / -194.6 556.8 / 556.8
[2025-07-26] MEDS: LANTUS SC (13:00)
[2025-07-26] MEDS: LANTUS 0.18 UNITS SC (13:29)
[2025-07-26 13:40] LABS: Urine Character Clear (Clear)
[2025-07-26 14:24] LABS: Urine Red Blood Cell 16-20 /HPF (0-2)
[2025-07-26 14:25] LABS: Urine Squamous Cell None seen /LPF (Few)
[2025-07-26 17:08] LABS: Glucose - Point of Care 94 mg/dl (70-99)
[2025-07-26] MEDS: NOVOLOG FLEXPEN 6 UNITS SC (17:31)
[2025-07-26] MEDS: LIPITOR 80 MG PO (17:32)
--- NOTE | 2025-07-26 20:00 | PTCARENOTE ---
Patient received in bed, NIH 2 mild slurring and facial droop noted, unchanged. NSR on monitor. lungs clear, pulse ox 97% on room air. Abdomen round, with hypoactive bowel sounds. Guzman catheter draining yellow urine. Left groin with NORMA
dressing old drainage noted. Right groin dressing intact. Right upper arm midline, #20 g in LAc, #20 g in left wrist flushed and patent. Plan of care discussed, call soto within reach
[2025-07-26 21:33] LABS: Glucose - Point of Care 155 mg/dl (70-99)
[2025-07-27] VITALS (14 sets, daily range): BP systolic 90–139; BP diastolic 36–70; PULSE 66; O2SAT 96; BMI 21.5
--- NOTE | 2025-07-27 04:14 | PTCARENOTE ---
Patient reassessed, sleeping when not disturbed. Bilateral groins unchanged. labs sent, call soto within reach
[2025-07-27 04:34] LABS: Hematocrit 25.2 % (39.0-52.0); Hemoglobin 8.3 g/dL (13.0-18.0); Mean Corp Hgb Conc. 32.9 g/dL (33.0-37.0); Mean Corpuscular Volume 93.0 fL (80.0-94.0); Platelet Count 115 10^3/uL (130-400); Red Cell Dist. Width 14.5 % (11.5-14.5)
[2025-07-27 04:48] LABS: Blood Urea Nitrogen 16 mg/dl (9-20); Glucose 68 mg/dl (70-99)
[2025-07-27 04:49] LABS: ALT (SGPT) 16 U/L (0-50); AST (SGOT) 37 U/L (17-59); Albumin 2.5 g/dl (3.5-5.0); Alkaline Phosphatase 35 U/L (38-126); Calcium 7.9 mg/dl (8.4-10.2); Carbon Dioxide 29 mmol/L (22-30); Chloride 103 mmol/L (98-107); Estimated Creatinine Clearance 60 ml/min; Magnesium 1.8 mg/dl (1.6-2.3); Potassium 3.3 mmol/L (3.5-5.1); Sodium 136 mmol/L (135-145); Total Protein 4.8 g/dl (6.3-8.2); eGFR > 60.00
[2025-07-27] MEDS: ZOSYN 50 IV ×4 (05:06→23:24)
[2025-07-27 05:20] LABS: INR 1.16; PT 15.3 Sec (11.4-14.6)
[2025-07-27 05:21] LABS: Fibrinogen 397 MG/DL (199-459)
[2025-07-27 05:23] LABS: D-Dimer 1.73 ug/mlFEU (0.00-0.50)
[2025-07-27] MEDS: VANCOCIN 275 MG IV (05:35)
[2025-07-27] MEDS: KCL 270 MEQ IV (06:35)
--- NOTE | 2025-07-27 07:17 | W.PN.CD ---
Today's Communication / Plan
-
Discuss DOAC with vascular surgery today.
Monitor H/H with addition of anticoagulation.
Low threshold to transfuse.
PT/OT.
Adjust insulin in light of hypoglycemia this AM.
Impression / Plan
-
Impression/Plan: 75 y/o male with a history of tobacco abuse with COPD, severe multivessel CAD with ICMO/HFmEF (LVEF 40-45%), HTN, HLD, PUD/GIB and IDDM1 (since age 37) admitted with BEAR/orthopnea with hypoxic respiratory failure and new atrial
flutter and elevated troponin, course complicated by DKA and shock, now s/p atrial flutter ablation and pending high risk PCI of RCA after CTS declined CABG.
Injection Mold Tooling Technician: Michael
#Multivessel CAD
-New diagnosis (this admission).
-[facility] 07/17/2025: JAVA ENTERPRISE ARCHITECT mid LAD, JAVA ENTERPRISE ARCHITECT proximal LCx, 80-90% ostial RCA, 70% mid RCA; LVEDP 14 mmHg at 60.8 kg.
-s/p complex PCI after surgical turndown. IVL + PCI to ostial 80-90% ostial RCA lesion (Xience Skypoint 3.5 x 15 SACHIN), IVL + CSI + PCI to 80% mid RCA lesion (Xience Skypoint 3.5 x 38 SACHIN).
-PCI complicated by slow reflow in dRCA after second round of CSI. Impella CP placed emergently.
-Impella removal complicated by focal dissection after attempt at rewiring for percutaneous closure (arteriotomy in the low POLYSILICON PREPARATION WORKER/SFA, diseased artery, multiple sheath exchanges), requiring surgical repair (see below).
-Continue ezetimibe and statin. Goal LDL < 55.
-Continue aspirin and clopidogrel. Discuss DOAC with vascular surgery. If they are satisfied with surgical stability, we will start apixaban 5 mg BID, discontinue aspirin and monitor H/H.
#Femoral artery dissection
-Acute, due to combination of emergent Impella placement and severely diseased femoral vessels followed by attempt at re-wiring for percutaneous closure.
-S/P complex femoral artery reconstruction with #8 Dacron graft with reimplantation of two profunda femora branches (07/25/2025) and thrombectomy.
-Management per vascular surgery.
#Atrial flutter/Atrial fibrillation
-New diagnosis, noted on recent monitor (07/13/2025).
-Atrial flutter ablation 07/20/2024.
-Remains in sinus rhythm.
-Rate/rhythm control with metoprolol succinate 12.5 mg daily.
-CHADSVASC = 8 (HTN, HF, DM,carotid dz, CVA (x2), age x2).
-Vascular surgery ok with heparin gtt. We will discuss initiation of DOAC.
#HFmrEF
-Acute. TTE 07/17/2025: LVEF 40%, akinetic apex
-Echo from 05/2025 with EF of 50-55% with aneurysmal apex/septal wall, hypokinesis of the inferolateral wall.
-LVEDP 14 mmHg at 60.8 kg.
-GDMT as hemodynamics will tolerate:
-Diuretics: Furosemide 40 mg PO daily.
-Beta da: Metoprolol succinate 12.5 mg daily.
-ACEI/ARB/ARNi: Enalapril 5 mg PO daily has not been given over the past few days due to normotension.
-MRA: None.
-SGLT2i: Dapagloflozin 10 mg daily -- ON HOLD.
-ICD: Not currently indicated.
#Stroke Alert
-Occurred after cardiac catheterization 07/17/2025. Patient had been noted to be hypotensive. Besides having catheterization patient also with known carotid artery disease and atrial fibrillation/atrial flutter.
-Patient seen by neurology currently stable.
-Patient did not undergo MRI, so diagnosis of CVA is not confirmed.
#Anemia
-Relatively acute.
-Post operative (with associated hematoma/extravasation seen on CT abdomen) and dilutional.
-Monitor H/H with continued diuresis.
#HTN
-Chronic, stable.
-Norepinephrine discontinued earlier this morning.
#Mild
-Chronic, stable.
#Carotid Disease:
-Chronic, stable.
-Bilateral disease on US - 50-69%.
-Follows with Dr. Guzman.
-Statin/risk factor modification.
#Alcohol Abuse
-Chronic. reports 6 drinks/daily.
Subjective/Interval History:
Femoral venous sheath removed, initially with good hemostasis.
Femoral venous site began bleeding again and prolonged manual compression applied (> 20 minutes) with lasting hemostasis.
Heparin gtt held yesterday to maintain hemostasis.
Downgraded to telemetry.
Feels well.
Weight down 0.8 kg.
Hbg down to 8.3.
Amiodarone gtt off yesterday.
DATA:
Cardiac Catheterization, 07/17/2025:
CONCLUSIONS
1. Right dominant circulation with dense calcification throughout the entire coronary tree, a JAVA ENTERPRISE ARCHITECT of the mid/distal LAD with bridging collaterals to the apical vessel, a chronic total occlusion of the nondominant circumflex and its proximal margin
and an 80-90%, densely calcified lesion in the ostium of the RCA followed by a densely calcified 70% lesion in the mid vessel.
2. Mildly elevated filling pressures (LVEDP = 14 mmHg at 60.8 kg).
3. Stenotic and calcified right radial artery with some discomfort placing a 6 [place] Islander radial sheath.
TTE, 07/17/2025:
SUMMARY
1. Limited follow up study. Patient in atrial flutter with rapid ventricular response.
2. Mild global hypokinesis with aneurysmal/akinetic apex. LVEF estimated at 40%.
3. Mild left atrial enlargement.
4. The cardiac valves were not fully evaluated.
5. Compared to echocardiographic study dated 06/10/2025 rapid atrial flutter replaces NSR. LVEF has fallen from 50-55% to 40%. Global hypokinesis is new. The apex is similar.
Head CT, 07/17/2025:
IMPRESSION:
No acute intracranial abnormalities.
Small old lacunar infarcts again seen in the bilateral basal ganglia and left thalamus.
Findings again seen compatible with diffuse cortical atrophy with nonspecific white matter changes as described above.
CTA Head/Neck, 07/17/2025:
IMPRESSION:
1. No large vessel occlusion, dissection, or aneurysms appreciated.
2. Heavily calcified carotid bulbs and proximal internal carotid arteries likely causing 50-69% luminal narrowing bilaterally.
3. Multilevel cervical spondylosis.
CT Chest, 07/17/2025:
IMPRESSION:
1. Trace right pleural effusion with irregular adjacent airspace opacities, most likely representing atelectasis and/or scarring.
2. Mild centrilobular emphysema within the upper lobes.
3. Normal caliber thoracic aorta with small amount of calcified plaque within the arch.
4. Chronic compression deformity of T7 vertebral body. Age-indeterminate mild compression deformities along the superior endplates of T2 and T3.
5. Bilateral intrarenal calculi.
EP/Ablation, 07/20/2025:
Summary:
Successful SVT ablation with typical atrial flutter ablation with cavo-tricuspid isthmus line of block formation.
Cardiac Catheterization/PCI, 07/24/2025:
CONCLUSIONS
1. Right dominant circulation with a JAVA ENTERPRISE ARCHITECT of the ostial circumflex, luminal irregularities in the proximal and mid LAD with a JAVA ENTERPRISE ARCHITECT of the mid/distal LAD immediately after D3, a densely calcified 80-90% lesion in the ostium of the RCA status post
successful intracoronary lithotripsy (shockwave 3.5 x 12 balloon) and PCI (Xience Skypoint 3.5 x 15 SACHIN, postdilated with a 3.5 NC balloon) and a densely calcified 80% lesion in the mid RCA status post CSI, intracoronary lithotripsy, repeat CSI
complicated by slow reflow and hypotension requiring Impella placement, ultimately status post accessible PCI (Xience Skypoint, postdilated with a 3.5 NC balloon) with reduction in stenosis to 0%, restoring CURTIS-3 flow.
2. Placement of Impella CP for hemodynamic support.
3. Intraprocedural consultation with interventional cardiology and CT surgery colleagues.
Physical Exam
Vital Signs/Labs
Vital Signs
Temp Pulse Resp BP Pulse Ox
36.4 C 69 15 110/53 97
07/27/25 00:00 07/27/25 05:45 07/26/25 17:45 07/27/25 03:59 07/26/25 20:00
07/25/25 07/26/25 07/27/25
11:59 11:59 11:59
Actual Weight 64.3 kg 66.8 kg 66 kg
07/27/25 03:59
07/27/25 03:59
PT 15.3 Sec (11.4-14.6) H 07/27/25 03:59
INR 1.16 07/27/25 03:59
APTT 33.2 Sec (23.4-35.0) 07/26/25 03:44
Magnesium 1.8 mg/dl (1.6-2.3) 07/27/25 03:59
Triglycerides 63 mg/dl (10-149) 07/16/25 07:38
LDL Cholesterol, Calc 56 mg/dl 07/16/25 07:38
VLDL Cholesterol, Calc 12 mg/dl (0-30) 07/16/25 07:38
HDL Cholesterol 64 mg/dl 07/16/25 07:38
07/15/25
06:50
Vgt-K-Cuamigtvudm Pept 3770
LAB Results
07/24/25
16:37
Troponin I 0.563 H*
Physical Exam
Constitutional: No acute distress and Comfortable
EENT: Anicteric and Moist mucous membranes
Cardiovascular: Rhythm & rate is regular, Pedal edema is absent, JVD pressure is normal, S1S2 is normal and Murmur/rub/gallop absent
Respiratory: Respiratory effort normal, Lungs clear to auscul., Wheeze Absent, Crackles Absent and Rhonchi Absent
GI: Soft, Distention absent, Flat, Non tender and Normal bowel sounds
Neuro/Psych: AO x 3
Other: Cath Site (RLE access site is mildly ecchymotic without hematoma. LLE access/surgical site is under dressing with minimal output.)
Data Reviewed
-
Date of Service: July 27, 2025
Medical Decision Making: Reviewed Test Results, Independent Historian Assessment and Test Interpretation
EKG: Tracing Personally Visualized and interpreted and Report Reviewed by me
Echo: Tracing Personally Visualized and interpreted and Report Reviewed by me
X-Ray/CT/US/MRI/NUC/PET: Image Personally Visualized and interpreted and Report Reviewed by me
Medical Tests (PFT, Pathology etc): Image Personally Visualized and interpreted and Report Reviewed by me
Labs: Labs Reviewed by me
Old Records: Reviewed
--- NOTE | 2025-07-27 07:45 | PTCARENOTE ---
Assumed care of patient. Walking rounds completed with previous RN. Pt assessed while he was lying in bed. Pt alert and oriented x4. MARTÍNEZ with equal strength throughout. PERRLA 3mm brisk. Right sided facial droop, mild slurring speech. Denies pain,
shortness of breath, and nausea. NSR on tele with rates in the 60s-70s. BP 139/58. Bilateral radial pulses palpable. Bilateral DPPT pulses present via doppler. No edema noted. POX 96% on RA. Lungs diminished in the bases, no adventicious sounds.
Frequent moist nonproductive cough. IS encouraged-750mL achieved. Abdomen soft, nontender. +BS. Tolerating diet. Guzman intact draining adequate amounts of clear yellow urine. Right groin with slight firmness above site, no change as per previous RN.
dressing CDI. Left groin NORMA dressing with old drainage, intact with green flashing. Right upper arm midline intact. Left wrist 22g PIV and left AC 20 intact. See MAR for medication administration. See worklist for complete nursing assessment. Plan
of care reviewed and patient in agreement.
--- NOTE | 2025-07-27 08:12 | W.PN.VS ---
Addendum entered and electronically signed by Juan Strong MD 07/27/25 15:19:
Seen and examined with DATA REDUCTION TECHNICIAN earlier this a.m. Agree with findings and plan as discussed and noted below.
Original Note:
Today's Communication / Plan
-
Patient seen and examined at bedside with Dr. Juan Strong, below plan reviewed with attending.
Assessment/Plan
-
Assessment: 75-year-old male POD #2 Complex left femoral artery reconstruction: Left common femoral artery to superficial femoral artery interposition graft using 8 mm Dacron limb and reimplantation of left profunda femoral artery branches (x 2)
onto the 8 mm Dacron interpostition graft. Thrombectomy of left superficial femoral artery and popliteal artery. Thrombectomy of left profunda femoral artery.
Plan:
From a vascular surgical perspective safe to initiate OAC today
Continue neurovascular checks
Subjective Data
-
Date of Service: July 27, 2025
Patient seen and examined at bedside, offers no complaints.
Objective Data
-
Vital Signs
Temp Pulse Resp BP Pulse Ox
97.6 F 69 16 139/58 96
07/27/25 07:58 07/27/25 07:58 07/27/25 07:58 07/27/25 07:58 07/27/25 07:58
Intake and Output
07/26/25 07/27/25 07/28/25
06:59 06:59 06:59
Intake Total 1838.7 / 1945.4 1756.8 / 1756.8
Output Total 2100 / 2140 1610 / 1610
Balance -261.3 / -194.6 146.8 / 146.8
Intake:
Oral fluids 720 / 720
IV fluids (Total) 1463.7 / 1570.4 336.8 / 336.8
Amio 283.7 / 300.4 66.8 / 66.8
Cardene 12.5 / 12.5
KVO 220 / 230 30 / 30
Levo 67.5 / 67.5 0 / 0
Nss 1,000 ml @ 80 mls/hr IV . 880 / 960 240 / 240
[id number] TRAN Rx#:[id number]
IV piggybacks 375 / 375 700 / 700
Output:
Gastrointestinal tube output ( 300 / 300
Total)
[place] Sump 300 / 300
Urine, Guzman 1800 / 1840 1610 / 1610
Lab Results
07/27/25 03:59
07/27/25 03:59
Calcium 7.9 mg/dl (8.4-10.2) L 07/27/25 03:59
Phosphorus 4.8 mg/dl (2.5-4.5) H 07/18/25 04:04
Magnesium 1.8 mg/dl (1.6-2.3) 07/27/25 03:59
Total Bilirubin 1.3 mg/dl (0.2-1.3) 07/27/25 03:59
Direct Bilirubin 0.4 mg/dl (0.0-0.4) 07/18/25 04:04
AST 37 U/L (17-59) 07/27/25 03:59
ALT 16 U/L (0-50) 07/27/25 03:59
Alkaline Phosphatase 35 U/L (38-126) L 07/27/25 03:59
Total Protein 4.8 g/dl (6.3-8.2) L 07/27/25 03:59
Albumin 2.5 g/dl (3.5-5.0) L 07/27/25 03:59
Physical Exam
-
No apparent distress, resting in bed comfortably
No tachycardia
No dyspnea on room air
Left groin tri dressing dry and intact, no evidence of hematoma, all surrounding compartments soft, left foot warm with Doppler DP signal
[2025-07-27] MEDS: PROSCAR 5 MG PO (08:23)
[2025-07-27] MEDS: ASPIR LOW (ENTERIC COATED) 81 MG PO (08:23)
[2025-07-27] MEDS: LASIX 40 MG PO (08:23)
[2025-07-27] MEDS: NSS (PRESERVATIVE FREE) 10 ML IV (08:23)
[2025-07-27] MEDS: FLOMAX 0.4 MG PO (08:23)
[2025-07-27] MEDS: ZETIA 10 MG PO (08:23)
[2025-07-27] MEDS: CARAFATE SUSPENSION PO ×4 (08:23→22:49)
[2025-07-27] MEDS: PROTONIX IV 40 MG IV (08:23)
[2025-07-27] MEDS: TOPROL XL 12.5 MG PO (08:23)
[2025-07-27] MEDS: PLAVIX 75 MG PO (08:24)
[2025-07-27] MEDS: NOVOLOG FLEXPEN-LOW RESISTANCE SC ×3 (09:13→16:34)
[2025-07-27] MEDS: VASOTEC 5 MG PO (09:14)
[2025-07-27] MEDS: KCL 40 MEQ PO (09:14)
[2025-07-27] MEDS: NOVOLOG FLEXPEN 3 UNITS SC ×3 (09:14→18:16)
[2025-07-27] MEDS: LANTUS 0.15 UNITS SC (09:14)
[2025-07-27 09:19] LABS: Glucose - Point of Care 88 mg/dl (70-99)
--- NOTE | 2025-07-27 09:29 | PHA.VAN.FU ---
Vancomycin Assessment / Plan
- Assessment
Renal Function: Stable
WBC's are: Trending Down
In the past 24 hrs, patient has been: Afebrile
Concomitant Antimicrobials: piperacillin/tazobactam
- Dosing Plan
Continue: Vanc 1250mg Q24H
- Monitoring Plan
No level(s) ordered at this time: consider levels in next few days
- Follow Up
Pharmacy will continue to follow.
Vancomycin Follow UP
- -
Patient Age: 75
Patient Sex: Male
Vancomycin Day #: 3
Indication: Skin And Soft Tissue
Requesting Provider: Jorge Odom
Pertinent Antimicrobial Allergies:
NKDA
Height / Weight:
Height 5 ft 9 in
Actual Weight 66 kg
Pertinent Past Medical History: DM
- Vital Signs / Lab Results
Temp Pulse Resp BP Pulse Ox
97.6 F 69 16 139/58 96
07/27/25 07:58 07/27/25 07:58 07/27/25 07:58 07/27/25 07:58 07/27/25 07:58
Lab Results - Hematology
07/24/25 07/25/25 07/26/25
18:45 04:29 03:44
WBC 14.4 H 13.2 H 11.3 H
07/27/25
03:59
WBC 10.9 H
Lab Results - Chemistry
07/24/25 07/25/25 07/25/25
18:45 04:29 14:17
BUN 14 14 14
Creatinine 0.9 0.9 0.8
Estimated Creat Clear 61 61 73
Albumin 3.5 3.0 L
07/26/25 07/27/25
03:44 03:59
BUN 13 16
Creatinine 1.0 1.0
Estimated Creat Clear 58 60
Albumin 2.6 L 2.5 L
07/24/25 07/24/25 07/25/25
18:45 20:00 00:29
Lactic Acid 2.3 H Cancelled 1.4
07/25/25 07/25/25 07/25/25
04 14:16 14:48
Lactic Acid 0.9 1.8 1.6
07/25/25 07/26/25 07/26/25
18:22 03:44 05:56
Lactic Acid 1.6 0.8 0.8
07/26/25 07/26/25
12:00 18:00
Lactic Acid Cancelled Cancelled
Lab Results - Urine
07/26/25
13:27
Urine Nitrite (Reflex) Negative
Leukocyte Esterase Rfl 3+ A
Ur Squamous Epith Cells None seen
--- NOTE | 2025-07-27 11:36 | PN.DE.MGMTRT ---
Insulin Management
- -
07/27/2025: Diabetes Management Follow up
Patient admitted 07/15 with c/o increasing SOB for past two days, found to be in A flutter, mild heart failure, acute hypoxic respiratory failure, possible non-ST elevation OK (Troponin peaked at 2).
PMH: CAD, ICM, CHF w/ mildly reduced EF, mild , HTN, HLD, COPD, gastric ulcers, HH, GERD, daily alcohol use, tobacco abuse, CVA 01/2015 on Plavix, colon polyps, urinary retention requiring self-catheterization, erectile Dysfunction, falls,
pneumothorax and T1DM- was dx at 37 years old.
Patient was inpatient 06/13 to 06/18 with acute change in mental status, encephalopathy. Prior to admission was taking NPH 26 units in AM and 16 units @ HS. A1C 8.4%, cr 1.1 eGFR >60.
States he was diagnosed with type 1 diabetes requiring insulin at age 37. They both state he is followed by his primary doctor, Bobo, for diabetes management. Today states that he did see the PLASMA CENTER TECHNICIAN at [facility]
just once. He has been on NPH and was recently ordered NovoLog but told only to take if glucose > 300. Discussed at length importance of glucose control and action of Lantus. He states he does not recall ever being on Lantus but is agreeable to
try.
He was found to be in DKA after fall 07/17, glucose 594. Transferred to ICU and insulin infusion - DKA protocol started and transitioned off on 07/18 to SQ insulin
07/25 Fasting glucose 169. Patient is again NPO. Should receive AM lantus after procedure. When diet resumed should resume NovoLog to 6 units AC after the procedure. Cont low corrective insulin.
07/26 Patient is awake alert and oriented, not at bedside today. Received AM lantus at 3pm yesterday, glucose range 230 at 12 noon, 115 @ HS and Fasting today 81. Patient NPO at time of my visit with NG tube. Discussed with nurse to give
lantus at 12 noon today as yesterdays dose was 3pm. When diet resumed will resume 6 units novolog AC and continue lantus 22 units in AM (will give AM dose at 9am tomorrow).
07/27 Fasting glucose 68. Glucose range yesterday 78 to 155. Patient appetite has been poor. Will reduce lantus to 15 units in AM and reduce ac novolog to 3 units with low corrective insulin.
Discussed with nurse. Will cont to follow.
07/24/25 Reviewed discharge medication with pt's as she seemed confused about the 2 different types of insulin patient will be taking after discharge
Instructed Pt's to discard the old NPH insulin that she has at home prior to patient being discharged so she doesn't get herself confused.
Diabetes History
- -
Type of Diabetes: 1
Pre-Admission Diabetes Regimen
07/27/25
03:59
Creatinine 1.0
Lab Results
Hemoglobin A1c 8.4 % (4.0-5.9) H 07/16/25 07:38
Insulin Pump Settings
IP Diabetes Regimen
07/26/25 07/26/25 07/26/25
12:26 17:06 21:32
Glucose
POC Glucose 78 94 155 H
07/27/25 07/27/25
03:59 09:12
Glucose 68 L
POC Glucose 88
Meal type: Breakfast
Meal type: Dinner
Meal type: Lunch
Amount consumed: 25%
Amount consumed: 80%
Amount consumed: 100%
Patient Education
--- NOTE | 2025-07-27 11:58 | W.PN.HOSP.TC ---
Today's Communication/Plan
-
Urology consult
Assessment / Plan
Assessment / Plan
Physical exam:
General: Acutely ill
HEENT: Normocephalic, Atraumatic and Dry Mucous Membranes
Respiratory: Decreased breath sounds bilaterally; Negative Wheezes, Rales or Rhonchi
Cardiac: Regular Rhythm and S1/S2
GI: Soft, Nontender and Nondistended
Musculoskeletal: No Clubbing, No Cyanosis and No Edema
Neuro: Lethargic, no neurological deficit
Psych: Limited judgment and insight
A/P:
Cardiogenic shock:
Discussed with cardiology yesterday and status post removal of Impella
Possible left ventricular stunning
Persistent nausea and vomiting:
Improving
Obtained chest and abdomen x-ray and unremarkable
Remove NG tube yesterday
Continue diet
Continue PPI
Urinary retention:
Guzman catheter in place
Urology consult
Leukocytosis and recent Enterococcus UTI:
On IV Zosyn and vancomycin-started by vascular surgery
Acute blood loss anemia:
Blood transfusion as needed
Monitor hemoglobin
Occlusion of left common femoral artery with concern for dissection flap following Impella placement:
Status post complete left femoral artery reconstruction per vascular surgery on 07/25
Anticoagulation per vascular and cardiology
On anticoagulation by vascular surgery
Hypertensive urgency:
Weaning nicardipine drip
Continue other antihypertensives
Diabetes mellitus type 1:
Continue Lantus
Meal coverage insulin when able to take oral
Insulin sliding scale
Multivessel CAD:
Status post complex PCI to ostial RCA and mid RCA
On DAPT
On statin
Atrial flutter/fibrillation, new onset:
Cardiac monitoring
On beta-blockers
On amiodarone
Anticoagulation when cleared by cardiology
Acute HFrEF:
On oral diuretics
On GDMT
Altered mental status with stroke alert refugio-procedure:
Was felt to be hypotension related and stroke workup unremarkable
Mild aortic stenosis:
Serial echo as outpatient
Other medical diagnoses:
NSTEMI
Acute respiratory insufficiency
Hypotension
ROSSY
Hyponatremia
Leukocytosis
Recent Enterococcus faecalis UTI
Nicotine addiction
Alcohol use disorder
Hypertension
Hyperlipidemia
History of peptic ulcer disease
Urinary retention
DKA, resolved
DVT prophylaxis:
SCDs if okay with vascular. Considering anticoagulation
CODE STATUS:
Full code
Total time spent on today's encounter was 52 minutes which included time spent in counseling the patient/family regarding diagnosis and treatment plan as listed above, goals of care, and symptom management. Case was discussed with nursing staff,
specialists, and care coordinators/case management. All labs and imaging personally reviewed by me. Remainder the time spent in detailed review of previous records, lab data, imaging, and other medical provider documentation.
Anticipated Discharge: 24 - 48 hours
Subjective/Interval History
-
Date of Service: July 27, 2025
Patient denies chest pain or shortness of breath
Objective Data
-
Labs:
Laboratory Results
07/27/25
03:59
WBC 10.9 H
Hgb 8.3 L
Hct 25.2 L
Plt Count 115 L
PT 15.3 H
INR 1.16
Sodium 136
Potassium 3.3 L
Chloride 103
Carbon Dioxide 29
BUN 16
Creatinine 1.0
Glucose 68 L
Calcium 7.9 L
Total Bilirubin 1.3
AST 37
ALT 16
Alkaline Phosphatase 35 L
Vital Signs:
Vital Signs
Temp Pulse Resp BP Pulse Ox
97.3 F 65 18 95/46 96
07/27/25 11:16 07/27/25 11:16 07/27/25 11:16 07/27/25 11:16 07/27/25 11:16
I&O
07/26/25 07/27/25 07/28/25
06:59 06:59 06:59
Intake Total 1838.7 / 1945.4 1756.8 / 1756.8 240 / 240
Output Total 2099 / 2139 1610 / 1610 135 / 135
Balance -261.3 / -194.6 146.8 / 146.8 105 / 105
--- NOTE | 2025-07-27 12:00 | PTCARENOTE ---
Pt reassessed. Pt sitting up in the chair. No change in neuro status. NSR with occasional PAC with rate in the 60s. BP 95/46. POX96% on RA. Guzman intact draining adequate amounts of clear yellow urine. B/l DPPT pulses present via doppler. B/l groin
sites unchanged. Pt's at bedside, asking questions about discharge plan, contacted case management to speak with patient. Hospitalist contact to discuss plan of care.
--- NOTE | 2025-07-27 12:35 | CM ---
Reviewed chart. Met with and Mrs. Tripp to review discharge plans. We reviewed SNF/Rehab and SNF Rehab in the area. She states she has been in [facility] in the past. Mr. Soler states he would prefer to go home with [facility].
Ryder states he will need to ambulate and be able to do the stairs. P.T. And O.T. have been following. If he needs SNF/Rehab. he will need pre-cert with his insurance. Telephone call to [facility] Admission to make the referral. Referral sent.
Prior to admission he resides with his spouse in a two story home with one step to enter. He has a full flight of steps to get to bedroom/full bathroom. He has a powder room on the first floor. Prior to admission he was independent with ambulation
and adls. He has a walker and single point cane at home but he is not using them. He has had [facility] and he is agreeable to [facility] again if needed.Telephone call to [facility] to make the referral. Sent the referral. He
states he has a prescription plan. If he needs some level of inpatient rehab. he will need pre-cert with his insurance. Medical work-up in progress. The discharge plan is to return home with his spouse and [facility] versus some level
of inpatient rehab. if indicated approved by insurance and if he is agreeable when medically stable.
[2025-07-27 13:37] LABS: Glucose - Point of Care 99 mg/dl (70-99)
--- NOTE | 2025-07-27 14:52 | PTCARENOTE ---
pt transferred to IVU, report given to Karlo
--- NOTE | 2025-07-27 14:58 | PTCARENOTE ---
Received pt as transfer from CVICU. AAOx3. NIHSS 1 for mild slurring. NSR on tele, HR 60s. SpO2 96% on room air. BP 90/40, asymptomatic. R groin dressing CDI, surrounding skin ecchymotic. L groin NORMA dressing with old drainage. B/L DP pulses
present via doppler. Guzman draining clear, yellow urine. Assessment documented. Pt OOB in chair, call soto in reach.
[2025-07-27 16:34] LABS: Glucose - Point of Care 139 mg/dl (70-99)
[2025-07-27] MEDS: LIPITOR 80 MG PO (17:30)
--- NOTE | 2025-07-27 18:13 | W.PN.URO.CBU ---
Today's Communication / Plan
-
keep hua remove day of discharge pt. can self cath
Assessment / Plan
-
h/o p;ertial retntion discussed options with pt will keep this hua and remove day of discharge sand resume intermittent cath at home
Diagnosis
-
Date of Service: July 27, 2025
-
Patient Diagnosis:s/p rempote h/o tirp still does cic q d now retentionm in [place] [facility] has hua
Post Op Day:
Subjective
-
no gu new sxs
Objective
-
Vital Signs
Temp Pulse Resp BP Pulse Ox
97.9 F 61 20 97/48 92
07/27/25 15:42 07/27/25 15:42 07/27/25 15:42 07/27/25 15:42 07/27/25 15:42
Intake and Output
07/26/25 07/27/25 07/28/25
06:59 06:59 06:59
Intake Total 1838.7 / 1945.4 1756.8 / 1756.8 240 / 240
Output Total 2100 / 2140 1610 / 1610 910 / 910
Balance -261.3 / -194.6 146.8 / 146.8 -670 / -670
Intake:
Oral fluids 720 / 720 240 / 240
IV fluids (Total) 1463.7 / 1570.4 336.8 / 336.8
Amio 283.7 / 300.4 66.8 / 66.8
Cardene 12.5 / 12.5
KVO 220 / 230 30 / 30
Levo 67.5 / 67.5 0 / 0
Nss 1,000 ml @ 80 mls/hr IV . 880 / 960 240 / 240
[id number] TRAN Rx#:[id number]
IV piggybacks 375 / 375 700 / 700
Output:
Gastrointestinal tube output ( 300 / 300
Total)
[place] Sump 300 / 300
Urine, Hua 1800 / 1840 1610 / 1610 835 / 835
Urine, Voided 75 / 75
Laboratory Results
07/27/25 03:59
07/27/25 03:59
Review of Systems
-
: Difficulty Voiding
Physical Exam
-
General - well developed, well nourished, no acute distress
Chest - clear bilaterally
Abdomen - soft, non-tender, positive bowel sounds, no CVAT, no incisional pain or distention
Genitalia - normal
Rectal - normal
Skin - warm & dry with no rash
Neuro - AOx3, no motor deficits
Extremities - no clubbing, no cyanosis, no edema
Incision - clean, dry
Dressing - clean, dry, intact
Counseling
-
keep hua remove dayof discharge
[2025-07-27] MEDS: VASOTEC PO (19:52)
[2025-07-27 22:02] LABS: Glucose - Point of Care 180 mg/dl (70-99)
--- NOTE | 2025-07-28 00:10 | PTCARENOTE ---
Received pt @ change of shift. AAOx3, resting in bed. VSS-- NSR w/ PVCs on monitor. NIHSS-1 (slurred speech) and neuro assessment completed-- see worklist. Left groin site old drainage on tri dressing-- soft to touch, no ecchymosis. Right groin
site clean, dry, and intact. Ecchymosis, but soft to touch. Guzman in place per urology determination. Midline in right upper arm. Discussed plan of care. Pt verbalizes understanding. Call soto within reach.
[2025-07-28 04:51] VITALS: BP 116/52
--- NOTE | 2025-07-28 04:56 | PTCARENOTE ---
Midline would not give blood return for AM labs-- pt refused 'to be stuck again.'
[2025-07-28] MEDS: ZOSYN 50 IV ×2 (04:59→12:08)
[2025-07-28 06:00] VITALS: BMI 22.0
[2025-07-28] MEDS: VANCOCIN 275 MG IV (06:05)
[2025-07-28 07:04] VITALS: BP 137/52
--- NOTE | 2025-07-28 07:22 | W.PN.CD ---
Today's Communication / Plan
-
AM labs pending.
Start apixaban 5 mg BID.
PT/OT recommending skilled rehab.
Impression / Plan
-
Impression/Plan: 75 y/o male with a history of tobacco abuse with COPD, severe multivessel CAD with ICMO/HFmEF (LVEF 40-45%), HTN, HLD, PUD/GIB and IDDM1 (since age 37) admitted with BEAR/orthopnea with hypoxic respiratory failure and new atrial
flutter and elevated troponin, course complicated by DKA and shock, now s/p atrial flutter ablation and pending high risk PCI of RCA after CTS declined CABG.
Patent Searcher: Michael
#Multivessel CAD
-New diagnosis (this admission).
-[facility] 07/17/2025: CYBER DEFENSE ANALYST mid LAD, CYBER DEFENSE ANALYST proximal LCx, 80-90% ostial RCA, 70% mid RCA; LVEDP 14 mmHg at 60.8 kg.
-s/p complex PCI after surgical turndown. IVL + PCI to ostial 80-90% ostial RCA lesion (Xience Skypoint 3.5 x 15 SACHIN), IVL + CSI + PCI to 80% mid RCA lesion (Xience Skypoint 3.5 x 38 SACHIN).
-PCI complicated by slow reflow in dRCA after second round of CSI. Impella CP placed emergently.
-Impella removal complicated by focal dissection after attempt at rewiring for percutaneous closure (arteriotomy in the low STOCK MANAGER/SFA, diseased artery, multiple sheath exchanges), requiring surgical repair (see below).
-Continue ezetimibe and statin. Goal LDL < 55.
-Anti-thrombotic therapy with clopidogrel/apixaban. Discontinue aspirin.
#Femoral artery dissection
-Acute, due to combination of emergent Impella placement and severely diseased femoral vessels followed by attempt at re-wiring for percutaneous closure.
-S/P complex femoral artery reconstruction with #8 Dacron graft with reimplantation of two profunda femora branches (07/25/2025) and thrombectomy.
-Management per vascular surgery.
#Atrial flutter/Atrial fibrillation
-New diagnosis, noted on recent monitor (07/13/2025).
-Atrial flutter ablation 07/20/2024.
-Remains in sinus rhythm.
-Rate/rhythm control with metoprolol succinate 12.5 mg daily.
-CHADSVASC = 8 (HTN, HF, DM,carotid dz, CVA (x2), age x2).
-Start apixaban 5 mg BID this morning.
#HFmrEF
-Acute. TTE 07/17/2025: LVEF 40%, akinetic apex
-Echo from 05/2025 with EF of 50-55% with aneurysmal apex/septal wall, hypokinesis of the inferolateral wall.
-LVEDP 14 mmHg at 60.8 kg.
-GDMT as hemodynamics will tolerate:
-Diuretics: Furosemide 40 mg PO daily.
-Beta da: Metoprolol succinate 12.5 mg daily.
-ACEI/ARB/ARNi: Enalapril 5 mg PO daily has not been given over the past few days due to normotension.
-MRA: None.
-SGLT2i: Dapagloflozin 10 mg daily -- ON HOLD.
-ICD: Not currently indicated.
#Urinary Retention
-Chronic.
-Urology following.
-Maintain hua catheter until discharge, then intermittent straight cath at home.
-Outpatient urology follow up.
#Stroke Alert
-Occurred after cardiac catheterization 07/17/2025. Patient had been noted to be hypotensive. Besides having catheterization patient also with known carotid artery disease and atrial fibrillation/atrial flutter.
-Patient seen by neurology currently stable.
-Patient did not undergo MRI, so diagnosis of CVA is not confirmed.
#Anemia
-Relatively acute.
-Post operative (with associated hematoma/extravasation seen on CT abdomen) and dilutional.
-Monitor H/H with initiation of apixaban.
#HTN
-Chronic, stable.
#Mild
-Chronic, stable.
#Carotid Disease:
-Chronic, stable.
-Bilateral disease on US - 50-69%.
-Follows with Dr. Hua.
-Statin/risk factor modification.
#Alcohol Abuse
-Chronic. reports 6 drinks/daily.
#Dispo:
-IVU status.
-Full code.
-PT/OT recommending skilled rehab.
Subjective/Interval History:
Urinary retention documented. Urology consulted, planning to maintain hua until discharge with intermittent straight cathing at home until outpatient follow up.
Transferred to IVU yesterday.
AM labs pending.
DATA:
Cardiac Catheterization, 07/17/2025:
CONCLUSIONS
1. Right dominant circulation with dense calcification throughout the entire coronary tree, a CYBER DEFENSE ANALYST of the mid/distal LAD with bridging collaterals to the apical vessel, a chronic total occlusion of the nondominant circumflex and its proximal margin
and an 80-90%, densely calcified lesion in the ostium of the RCA followed by a densely calcified 70% lesion in the mid vessel.
2. Mildly elevated filling pressures (LVEDP = 14 mmHg at 60.8 kg).
3. Stenotic and calcified right radial artery with some discomfort placing a 6 [place] radial sheath.
TTE, 07/17/2025:
SUMMARY
1. Limited follow up study. Patient in atrial flutter with rapid ventricular response.
2. Mild global hypokinesis with aneurysmal/akinetic apex. LVEF estimated at 40%.
3. Mild left atrial enlargement.
4. The cardiac valves were not fully evaluated.
5. Compared to echocardiographic study dated 06/10/2025 rapid atrial flutter replaces NSR. LVEF has fallen from 50-55% to 40%. Global hypokinesis is new. The apex is similar.
Head CT, 07/17/2025:
IMPRESSION:
No acute intracranial abnormalities.
Small old lacunar infarcts again seen in the bilateral basal ganglia and left thalamus.
Findings again seen compatible with diffuse cortical atrophy with nonspecific white matter changes as described above.
CTA Head/Neck, 07/17/2025:
IMPRESSION:
1. No large vessel occlusion, dissection, or aneurysms appreciated.
2. Heavily calcified carotid bulbs and proximal internal carotid arteries likely causing 50-69% luminal narrowing bilaterally.
3. Multilevel cervical spondylosis.
CT Chest, 07/17/2025:
IMPRESSION:
1. Trace right pleural effusion with irregular adjacent airspace opacities, most likely representing atelectasis and/or scarring.
2. Mild centrilobular emphysema within the upper lobes.
3. Normal caliber thoracic aorta with small amount of calcified plaque within the arch.
4. Chronic compression deformity of T7 vertebral body. Age-indeterminate mild compression deformities along the superior endplates of T2 and T3.
5. Bilateral intrarenal calculi.
EP/Ablation, 07/20/2025:
Summary:
Successful SVT ablation with typical atrial flutter ablation with cavo-tricuspid isthmus line of block formation.
Cardiac Catheterization/PCI, 07/24/2025:
CONCLUSIONS
1. Right dominant circulation with a CYBER DEFENSE ANALYST of the ostial circumflex, luminal irregularities in the proximal and mid LAD with a CYBER DEFENSE ANALYST of the mid/distal LAD immediately after D3, a densely calcified 80-90% lesion in the ostium of the RCA status post
successful intracoronary lithotripsy (shockwave 3.5 x 12 balloon) and PCI (Xience Skypoint 3.5 x 15 SACHIN, postdilated with a 3.5 NC balloon) and a densely calcified 80% lesion in the mid RCA status post CSI, intracoronary lithotripsy, repeat CSI
complicated by slow reflow and hypotension requiring Impella placement, ultimately status post accessible PCI (Xience Skypoint, postdilated with a 3.5 NC balloon) with reduction in stenosis to 0%, restoring CURTIS-3 flow.
2. Placement of Impella CP for hemodynamic support.
3. Intraprocedural consultation with interventional cardiology and CT surgery colleagues.
Physical Exam
Vital Signs/Labs
Vital Signs
Temp Pulse Resp BP Pulse Ox
37.3 C 65 20 116/52 94
07/28/25 07:05 07/28/25 06:00 07/28/25 07:05 07/28/25 04:51 07/28/25 07:05
07/26/25 07/27/25 07/28/25
11:59 11:59 11:59
Actual Weight 66.8 kg 66 kg
PT 15.3 Sec (11.4-14.6) H 07/27/25 03:59
INR 1.16 07/27/25 03:59
APTT 33.2 Sec (23.4-35.0) 07/26/25 03:44
Magnesium 1.8 mg/dl (1.6-2.3) 07/27/25 03:59
Triglycerides 63 mg/dl (10-149) 07/16/25 07:38
LDL Cholesterol, Calc 56 mg/dl 07/16/25 07:38
VLDL Cholesterol, Calc 12 mg/dl (0-30) 07/16/25 07:38
HDL Cholesterol 64 mg/dl 07/16/25 07:38
07/15/25
06:50
Kdm-[id number]-Meteqtmokiq Pept 3770
Physical Exam
Constitutional: No acute distress and Comfortable
EENT: Anicteric and Moist mucous membranes
Cardiovascular: Rhythm & rate is regular, Pedal edema is absent, JVD pressure is normal, S1S2 is normal and Murmur/rub/gallop absent
Respiratory: Respiratory effort normal, Lungs clear to auscul., Wheeze Absent, Crackles Absent and Rhonchi Absent
GI: Soft, Distention absent, Flat, Non tender, Normal bowel sounds and Distention present
Neuro/Psych: AO x 3
Other: Cath Site (Right femoral access site is mildly ecchymotic. Left femoral surgical site is under dressing.)
Data Reviewed
-
Date of Service: July 28, 2025
Medical Decision Making: Reviewed Test Results, Independent Historian Assessment and Test Interpretation
EKG: Tracing Personally Visualized and interpreted and Report Reviewed by me
Echo: Tracing Personally Visualized and interpreted and Report Reviewed by me
X-Ray/CT/US/MRI/NUC/PET: Image Personally Visualized and interpreted and Report Reviewed by me
Medical Tests (PFT, Pathology etc): Image Personally Visualized and interpreted and Report Reviewed by me
Labs: Labs Reviewed by me
Old Records: Reviewed
--- NOTE | 2025-07-28 07:47 | PN.DE.MGMTRT ---
Insulin Management
- -
07/28/2025: Diabetes Management Follow up
Patient admitted 07/15 with c/o increasing SOB for past two days, found to be in A flutter, mild heart failure, acute hypoxic respiratory failure, possible non-ST elevation [place] (Troponin peaked at 2).
PMH: CAD, ICM, CHF w/ mildly reduced EF, mild , HTN, HLD, COPD, gastric ulcers, HH, GERD, daily alcohol use, tobacco abuse, CVA 01/2015 on Plavix, colon polyps, urinary retention requiring self-catheterization, erectile Dysfunction, falls,
pneumothorax and T1DM- was dx at 37 years old.
Patient was inpatient 06/13 to 06/18 with acute change in mental status, encephalopathy. Prior to admission was taking NPH 26 units in AM and 16 units @ HS. A1C 8.4%, cr 1.1 eGFR >60.
States he was diagnosed with type 1 diabetes requiring insulin at age 37. They both state he is followed by his primary doctor, Bobo, for diabetes management. Today states that he did see the MENTALLY RETARDED TEACHER at [facility]
just once. He has been on NPH and was recently ordered NovoLog but told only to take if glucose > 300. Discussed at length importance of glucose control and action of Lantus. He states he does not recall ever being on Lantus but is agreeable to
try.
He was found to be in DKA after fall 07/17, glucose 594. Transferred to ICU and insulin infusion - DKA protocol started and transitioned off on 07/18 to SQ insulin
Pt awake, alert, oriented, sitting up in bed, offers no complaints, states he feels a lot better, at bedside
Noted for poor appetite, Lantus reduced to 15 units in AM and AC NovoLog reduced to 3 units with low corrective insulin.
Glucose stable and in range, 07/27 premeal 88 to 139, fasting 160. States his appetite is improving, ate more at breakfast today.
Will make no changes to current regimen: Lantus 15 units in AM and NovoLog 3 units AC and low corrective insulin with meals
Discussed with nurse. Will cont to follow.
07/24/25 Reviewed discharge medication with pt's as she seemed confused about the 2 different types of insulin patient will be taking after discharge
Instructed Pt's to discard the old NPH insulin that she has at home prior to patient being discharged so she doesn't get herself confused.
Diabetes History
- -
Type of Diabetes: 1
Pre-Admission Diabetes Regimen
Lab Results
Hemoglobin A1c 8.4 % (4.0-5.9) H 07/16/25 07:38
Insulin Pump Settings
IP Diabetes Regimen
07/27/25 07/27/25 07/27/25
09:12 13:31 16:33
POC Glucose 88 99 139 H
07/27/25
22:00
POC Glucose 180 H
Meal type: Dinner
Meal type: Breakfast
Amount consumed: 100%
Amount consumed: 25%
Patient Education
[2025-07-28] MEDS: CARAFATE SUSPENSION PO ×3 (08:09→16:35)
[2025-07-28] MEDS: PROTONIX 40 MG PO (08:11)
[2025-07-28] MEDS: VASOTEC 5 MG PO (08:11)
[2025-07-28] MEDS: PROSCAR 5 MG PO (08:11)
[2025-07-28] MEDS: ZETIA 10 MG PO (08:12)
[2025-07-28] MEDS: LASIX 40 MG PO (08:12)
[2025-07-28] MEDS: FLOMAX 0.4 MG PO (08:12)
[2025-07-28] MEDS: TOPROL XL 12.5 MG PO (08:12)
[2025-07-28] MEDS: PLAVIX 75 MG PO (08:12)
[2025-07-28] MEDS: ASPIR LOW (ENTERIC COATED) 81 MG PO (08:12)
[2025-07-28 08:49] LABS: Glucose - Point of Care 160 mg/dl (70-99)
--- NOTE | 2025-07-28 09:06 | W.PN.VS ---
Addendum entered and electronically signed by Tru Guzman III, MD 07/28/25 14:52:
This patient was seen and examined in collaboration with DORY Espinosa. I agree with the history and physical exam as well as the assessment and plan. I have the following additions:
Left groin NORMA replaced
Clean/dry
Left foot warm with dopp signals intact
F/U in the office after DC
Complete 10 day course of ABX given emergent nature of vascular repair and placement of graft material
Signed:
Tru Guzman III, MD
Vascular Surgery
[facility]
Original Note:
Today's Communication / Plan
-
Seen and assessed with Dr. Guzman
Assessment/Plan
-
Assessment: 75-year-old male POD #3 Complex left femoral artery reconstruction: Left common femoral artery to superficial femoral artery interposition graft using 8 mm Dacron limb and reimplantation of left profunda femoral artery branches (x 2)
onto the 8 mm Dacron interpostition graft. Thrombectomy of left superficial femoral artery and popliteal artery. Thrombectomy of left profunda femoral artery.
Plan:
At discharge can transition Vanc/Zosyn to Augmentin for 10 days
Okay for discharge from vascular standpoint
Subjective Data
-
Date of Service: July 28, 2025
Patient seen at bedside this a.m. with Dr. Guzman. Patient resting comfortably in bed. No events overnight.
Objective Data
-
Vital Signs
Temp Pulse Resp BP Pulse Ox
99.2 F 65 20 137/52 94
07/28/25 07:05 07/28/25 08:12 07/28/25 07:05 07/28/25 08:12 07/28/25 07:05
Intake and Output
07/27/25 07/28/25 07/29/25
06:59 06:59 06:59
Intake Total 1756.8 / 1756.8 615 / 615
Output Total 1610 / 1610 1235 / 1235
Balance 146.8 / 146.8 -620 / -620
Intake:
Oral fluids 720 / 720 240 / 240
IV fluids (Total) 336.8 / 336.8 375 / 375
Amio 66.8 / 66.8
KVO 30 / 30
Levo 0 / 0
Nss 1,000 ml @ 80 mls/hr IV . 240 / 240
[id number] TRAN Rx#:[id number]
Vancocin 1250 mg in Nss 275 / 275
Zosyn 3.375 G 100 / 100
IV piggybacks 700 / 700
Output:
Urine, Guzman 1610 / 1610 1160 / 1160
Urine, Voided 75 / 75
Calcium 7.9 mg/dl (8.4-10.2) L 07/27/25 03:59
Phosphorus 4.8 mg/dl (2.5-4.5) H 07/18/25 04:04
Magnesium 1.8 mg/dl (1.6-2.3) 07/27/25 03:59
Total Bilirubin 1.3 mg/dl (0.2-1.3) 07/27/25 03:59
Direct Bilirubin 0.4 mg/dl (0.0-0.4) 07/18/25 04:04
AST 37 U/L (17-59) 07/27/25 03:59
ALT 16 U/L (0-50) 07/27/25 03:59
Alkaline Phosphatase 35 U/L (38-126) L 07/27/25 03:59
Total Protein 4.8 g/dl (6.3-8.2) L 07/27/25 03:59
Albumin 2.5 g/dl (3.5-5.0) L 07/27/25 03:59
Physical Exam
-
No apparent distress, resting in bed comfortably
No tachycardia
No dyspnea on room air
Left groin norma dressing removed, incisional site well-approximated, no evidence of hematoma, all surrounding compartments soft
Left foot warm with Doppler DP signal
Norma dressing replaced
[2025-07-28] MEDS: NOVOLOG FLEXPEN 3 UNITS SC ×2 (09:26→12:20)
[2025-07-28] MEDS: NOVOLOG FLEXPEN-LOW RESISTANCE 1 UNITS SC ×2 (09:26→12:20)
[2025-07-28] MEDS: LANTUS 0.15 UNITS SC (09:27)
[2025-07-28] MEDS: ELIQUIS 5 MG PO (09:28)
[2025-07-28 09:36] LABS: Hematocrit 24.6 % (39.0-52.0); Hemoglobin 8.0 g/dL (13.0-18.0); Mean Corp Hgb Conc. 32.5 g/dL (33.0-37.0); Mean Corpuscular Volume 96.5 fL (80.0-94.0); Nucleated Red Blood Cells % 0 % (-); Platelet Count 133 10^3/uL (130-400); Red Cell Dist. Width 14.3 % (11.5-14.5)
[2025-07-28 10:49] LABS: Blood Urea Nitrogen 16 mg/dl (9-20); Calcium 8.4 mg/dl (8.4-10.2); Carbon Dioxide 29 mmol/L (22-30); Chloride 104 mmol/L (98-107); Estimated Creatinine Clearance 61 ml/min; Glucose 138 mg/dl (70-99); Potassium 4.1 mmol/L (3.5-5.1); Sodium 133 mmol/L (135-145); eGFR > 60.00
--- NOTE | 2025-07-28 10:56 | CM ---
Pricing on Eliquis 5mg BID through the patient's pharmacy is $106.
[2025-07-28 11:19] VITALS: BP 107/57
[2025-07-28 12:21] LABS: Glucose - Point of Care 190 mg/dl (70-99)
--- NOTE | 2025-07-28 12:32 | W.PN.HOSP.TC ---
Today's Communication/Plan
-
Discharge planning
Assessment / Plan
Assessment / Plan
Physical exam:
General: No acute distress
HEENT: Normocephalic, Atraumatic and Dry Mucous Membranes
Respiratory: Decreased breath sounds bilaterally; Negative Wheezes, Rales or Rhonchi
Cardiac: Regular Rhythm and S1/S2
GI: Soft, Nontender and Nondistended
Musculoskeletal: No Clubbing, No Cyanosis and No Edema
Neuro: Alert oriented, no neurological deficits
Psych: Normal judgment and insight
A/P:
NSTEMI:
Continue antiplatelet Plavix and anticoagulation with Eliquis, beta-blockers metoprolol succinate 2.5 mg p.o. daily, and statins atorvastatin 80 mg p.o. every night.
Also continue MAT inhibitor enalapril 5 mg twice a day and Zetia 10 m p.o. daily.
Cardiology did status post complex PCI
Cardiogenic shock:
Discussed with cardiology yesterday and status post removal of Impella
Possible left ventricular stunning
Persistent nausea and vomiting:
Improving
Obtained chest and abdomen x-ray and unremarkable
Remove NG tube prior
Continue diet
Continue PPI
Urinary retention:
Guzman catheter in place
Urology consult--> recommend to continue Guzman catheter and discontinue upon discharge.
Leukocytosis and recent Enterococcus UTI:
On IV Zosyn and vancomycin-started by vascular surgery--> recommend to switch to oral antibiotics upon discharge
Acute blood loss anemia:
Blood transfusion as needed
Monitor hemoglobin
Occlusion of left common femoral artery with concern for dissection flap following Impella placement:
Status post complete left femoral artery reconstruction per vascular surgery on 07/25
Anticoagulation per vascular and cardiology
On anticoagulation by vascular surgery
Hypertensive urgency:
Off nicardipine drip
Continue other antihypertensives
Diabetes mellitus type 1:
Continue Lantus
Meal coverage insulin when able to take oral
Insulin sliding scale
Multivessel CAD:
Status post complex PCI to ostial RCA and mid RCA
On DAPT--> switch to 1 antiplatelet and anticoagulation.
On statin
Atrial flutter/fibrillation, new onset:
Cardiac monitoring
On beta-blockers
On amiodarone
Anticoagulation when cleared by cardiology--> started on Eliquis 5 mg twice a day
Acute HFrEF:
On oral diuretics
On GDMT
Altered mental status with stroke alert refugio-procedure:
Was felt to be hypotension related and stroke workup unremarkable
Mild aortic stenosis:
Serial echo as outpatient
Other medical diagnoses:
Acute respiratory insufficiency
Hypotension
ROSSY
Hyponatremia
Leukocytosis
Recent Enterococcus faecalis UTI
Nicotine addiction
Alcohol use disorder
Hypertension
Hyperlipidemia
History of peptic ulcer disease
Urinary retention
DKA, resolved
DVT prophylaxis:
SCDs if okay with vascular. Considering anticoagulation
CODE STATUS:
Full code
Total time spent on today's encounter was 36 minutes which included time spent in counseling the patient/family regarding diagnosis and treatment plan as listed above, goals of care, and symptom management. Case was discussed with nursing staff,
specialists, and care coordinators/case management. All labs and imaging personally reviewed by me. Remainder the time spent in detailed review of previous records, lab data, imaging, and other medical provider documentation.
Anticipated Discharge: Today
Subjective/Interval History
-
Date of Service: July 28, 2025
Patient feels well overall. No chest pain or shortness of breath.
Objective Data
-
Labs:
Laboratory Results
07/28/25
09:03
WBC 9.1
Hgb 8.0 L
Hct 24.6 L
Plt Count 133
Sodium 133 L
Potassium 4.1
Chloride 104
Carbon Dioxide 29
BUN 16
Creatinine 1.0
Glucose 138 H
Calcium 8.4
Vital Signs:
Vital Signs
Temp Pulse Resp BP Pulse Ox
97.7 F 62 20 137/52 97
07/28/25 11:19 07/28/25 09:00 07/28/25 11:19 07/28/25 08:12 07/28/25 11:19
I&O
07/27/25 07/28/25 07/29/25
06:59 06:59 06:59
Intake Total 1756.8 / 1756.8 615 / 615
Output Total 1610 / 1610 1235 / 1235 60 / 60
Balance 146.8 / 146.8 -620 / -620 -60 / -60
--- NOTE | 2025-07-28 12:33 | W.PN.URO.CBU ---
Today's Communication / Plan
-
keep hua um[elss pt requests remval to aid in ambulatio and rehb
Assessment / Plan
-
h/o p;ertial retntion discussed options with pt will keep this hua and remove day of discharge sand resume intermittent cath at home but may remove and rwzsume cic any time
Diagnosis
-
Date of Service: July 28, 2025
-
Patient Diagnosis:
Post Op Day:
Patient Diagnosis:s/p rempote h/o tirp still does cic q d now retentionm in hopsital has hua
Post Op Day:
Subjective
-
cannot void
Objective
-
Vital Signs
Temp Pulse Resp BP Pulse Ox
97.7 F 62 20 137/52 97
07/28/25 11:19 07/28/25 09:00 07/28/25 11:19 07/28/25 08:12 07/28/25 11:19
Intake and Output
07/27/25 07/28/25 07/29/25
06:59 06:59 06:59
Intake Total 1756.8 / 1756.8 615 / 615
Output Total 1610 / 1610 1235 / 1235 60 / 60
Balance 146.8 / 146.8 -620 / -620 -60 / -60
Intake:
Oral fluids 720 / 720 240 / 240
IV fluids (Total) 336.8 / 336.8 375 / 375
Amio 66.8 / 66.8
KVO 30 / 30
Levo 0 / 0
Nss 1,000 ml @ 80 mls/hr IV . 240 / 240
[id number] TRAN Rx#:[id number]
Vancocin 1250 mg in Nss 275 / 275
Zosyn 3.375 G 100 / 100
IV piggybacks 700 / 700
Output:
Urine, Hua 1610 / 1610 1160 / 1160 60 / 60
Urine, Voided 75 / 75
Laboratory Results
07/28/25 09:03
07/28/25 09:03
Review of Systems
-
: Difficulty Voiding
Physical Exam
-
General - well developed, well nourished, no acute distress
Chest - clear bilaterally
Abdomen - soft, non-tender, positive bowel sounds, no CVAT, no incisional pain or distention
Genitalia - normal
Rectal - normal
Skin - warm & dry with no rash
Neuro - AOx3, no motor deficits
Extremities - no clubbing, no cyanosis, no edema
Incision - clean, dry
Dressing - clean, dry, intact
Counseling
-
keep hua but may remove per pt requst
Care Review
Data Reviewed
Discussed with: Family
[2025-07-28 14:14] VITALS: BP 111/53
[2025-07-28 14:21] VITALS: BP 111/53
--- NOTE | 2025-07-28 14:29 | W.DCSUMMARY ---
Discharge Summary
Discharge Data
Date of Admission: 07/15/25
Date of Discharge: 07/28/25
Total time spent discharging patient (in min): 41
-
Pending Results: No
Hospital Course
Patient is 75 years old male with multiple comorbidities who had a prolonged hospital stay and came in to the hospital initially with shortness of breath. Patient was found to be in atrial fibrillation and an acute heart failure exacerbation and
acute WI and he was treated with IV Lasix and Cardizem drip and anticoagulation and ACS.. Cardiology consulted. Initial cardiac cath on 07/17 revealed multivessel CAD and CT surgery was consulted. Complicated with acute mental status changes and
neurology did a stroke workup. Patient also went into DKA. Patient was transferred to ICU. After further discussion CT surgery deemed that he was not surgical candidate so he underwent high complex PCI on 07/24. He underwent cardiogenic shock due
to left ventricular stunning. He was placed on pressors and had Impella placed. He also had some acute blood loss anemia and required blood transfusion. After Impella removal he had left femoral artery injury vascular surgery was consulted and he
underwent complex left femoral artery reconstruction on 07/25. He also had Enterococcus urinary tract infection treated with IV antibiotics. He also had urinary retention that was managed with Guzman catheter and urology was consulted and follow him
during this hospitalization. Subsequently patient was able to tolerate back to oral anticoagulation and cardiac medications and instructed on his medications list by cardiology. Ultimately he was cleared by cardiology and vascular surgery for
discharge. PT OT had initial recommendations of skilled rehab but after reevaluation they recommended home health. Patient is being discharged in relatively stable condition today.
Discharge duration: 41 minutes
Discharge Plan
-
Patient Disposition: Home with Home Care
Discharge Diagnosis/Procedures: Aflutter post ablation (07/20).
Non-ST elevation myocardial infarction status post lithotripsy and atherectomy with angioplasty and stent x2 to Right Coronary artery (07/24).
Cardiogenic shock.
Urinary retention.
Enterococcus urinary tract infection.
Acute blood loss anemia.
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
Hypertensive urgency.
Diabetes mellitus type 1.
Atrial flutter/fibrillation, new onset.
Acute systolic congestive heart failure.
Acute metabolic encephalopathy.
Diet: Low Cholesterol and Diabetic, Carb Controlled
Activity: As tolerated
Bathing Restrictions: OK to Shower
Blood Work: Please PCP to order CBC, BMP within 1 week
Specialty Instructions: Weigh Daily- Call MD for wt gain/loss 3 lbs overnight/5 lbs in 1 week
Instructions: *CBC Heart Failure Instructions
Stand Alone Forms: DC Instructions- Cath/EP Lab, Vascular Surg Discharge Instr
Referrals:
[facility]. Cardiac Rehab [Outside] - 08/25/25 10:00 am
Referral Note: Cardiac Rehab Orientation appointment is on Thursday08/25/25 at 10AM
The Cardiac Rehab gym is located on the first floor of the [facility].
[facility].Visiting Nurs [Outside]
Adrienne Lucas PA-C [Specified Professional Personl, Vascular Surgery] - 08/10/25 10:00 am
Referral Note: Vascular Surgery Follow Up
Jeffrey Davila MD [Active, Urology] - in two to three weeks
Murtaza Bull DO [Active, Cardiology] - in one to two weeks
Amelia Broussard MD [Family Provider, Internal Medicine] - in less than 1 week
Prescriptions:
New
furosemide 40 mg Tablet
40 mg PO DAILY 30 Days Qty: 30 0RF
nicotine 21 mg/24 hr Patch 24 Hour
21 mg transdermal DAILY Qty: 7 0RF
metoprolol succinate 25 mg Tablet Extended Release 24 Hr
12.5 mg PO DAILY 30 Days Qty: 15 0RF
amoxicillin-pot clavulanate 875-125 mg Tablet
1 tab PO Q12 10 Days Qty: 20 0RF
Eliquis 5 mg Tablet
5 mg PO BID 30 Days Qty: 60 0RF
sennosides 8.6 mg tablet
8.6 mg PO BID Qty: 14 0RF
oxycodone 5 mg capsule
5 mg PO Q8H PRN (Reason: severe pain) Qty: 14 0RF
insulin glargine [Lantus U-100 Insulin] 100 unit/mL solution
15 unit SC DAILY Qty: 10 0RF
insulin aspart U-100 100 unit/mL (3 mL) insulin pen
3 unit SC TID Qty: 15 0RF
(DME) pen needle, diabetic [Yuly 2nd Gen Pen Needle] 32 gauge x ' Needle
Qty: 200 0RF
Rx Instructions:
Pt taking insulin 4 times a day
Continued
clopidogrel 75 MG tablet
75 mg PO DAILY
atorvastatin 80 mg Tablet
80 mg PO QPM
ezetimibe 10 mg Tablet
10 mg PO DAILY
Patient Comments:
01/30/2024, pt. unsure if he is taking this med. or not; filled on 01/05/2024 for a 30-day supply.
tamsulosin 0.4 mg Capsule
0.4 mg PO DAILY
finasteride 5 mg Tablet
5 mg PO DAILY
enalapril maleate 5 mg tablet
5 mg PO BID
sucralfate 100 mg/mL Suspension
1 g PO ACHS Qty: 1000 0RF
pantoprazole 40 mg Tablet,Delayed Release (Dr/Ec)
See Rx Instructions .ROUTE .COMPLEX Qty: 90 1RF
Rx Instructions:
40 mg BID for 1 month, followed by 40 mg daily
Discontinued
Humulin N NPH U-100 Insulin 100 unit/mL suspension
26 unit SC DAILY
Humulin N NPH U-100 Insulin 100 unit/mL suspension
16 unit SC QHS
nifedipine 30 mg tablet extended release
30 mg PO DAILY
Discharge Orders:
Discharge Patient (As Directed); Ordered 07/28/25
Ordered By: Joaquín Tran
Care Plan Goals
Care Plan Goals:
Problem: Readiness for enhanced knowledge related to diagnosis and treatment plan
Goal: Understand your diagnosis and treatment plan needs, including medications if applicable.
Instructions: Know your diagnosis, underlying causes and treatment plan options, including medications if applicable. Consult with your health care team to learn about your diagnosis and treatment plan, including medications if applicable.
Discharge Date and Time
Discharge Date/Time: 07/28/25 17:30
Print Language: SETSWANA
--- NOTE | 2025-07-28 15:47 | PHA.VAN.FU ---
Vancomycin Assessment / Plan
- Assessment
Renal Function: Stable
WBC's are: WNL
In the past 24 hrs, patient has been: Afebrile
Concomitant Antimicrobials: piperacillin/tazobactam
- Dosing Plan
Continue: Vanc 1250mg Q24H
- Monitoring Plan
No level(s) ordered at this time: given tentative discharge plans, will hold off on levels for now
- Follow Up
Pharmacy will continue to follow.
Vancomycin Follow UP
- -
Patient Age: 75
Patient Sex: Male
Vancomycin Day #: 4
Indication: Skin And Soft Tissue
Requesting Provider: Jorge Odom
Pertinent Antimicrobial Allergies:
NKDA
Height / Weight:
Height 5 ft 9 in
Actual Weight 67.4 kg
Pertinent Past Medical History: DM
- Vital Signs / Lab Results
Temp Pulse Resp BP Pulse Ox
97.7 F 62 20 137/52 97
07/28/25 11:19 07/28/25 09:00 07/28/25 11:19 07/28/25 08:12 07/28/25 11:19
Lab Results - Hematology
07/26/25 07/27/25 07/28/25
03:44 03:59 09:03
WBC 11.3 H 10.9 H 9.1
Lab Results - Chemistry
07/26/25 07/27/25 07/28/25
03:44 03:59 09:03
BUN 13 16 16
Creatinine 1.0 1.0 1.0
Estimated Creat Clear 58 60 61
Albumin 2.6 L 2.5 L
07/25/25 07/26/25 07/26/25
18:22 03:44 05:56
Lactic Acid 1.6 0.8 0.8
07/26/25 07/26/25
12:00 18:00
Lactic Acid Cancelled Cancelled
Microbiology Results
07/26/25 13:27 Urine Culture - Final
Urine Yeast
[2025-07-28 15:55] VITALS: BP 118/54
[2025-07-28] MEDS: NOVOLOG FLEXPEN SC (16:35)
[2025-07-28] MEDS: NOVOLOG FLEXPEN-LOW RESISTANCE SC (16:36)
--- NOTE | 2025-07-28 17:30 | PTCARENOTE ---
~6630-9525: Handoff report received from nightshift RN. Pt AOx4, NIHSS 1 for slurred speech at this time, SB/NSR 50s-60s on tele, SBP 130s, RA satting 94%, lungs diminished b/l with occassional wet non-productive cough. Pt denies pain at this time.
+1 edema L hand. +2 radial/dopper DP pulses. Ax1 with walker OOB to chair. R radial puncture site KARAN and soft. R groin CDI, eccymotic and soft, L groin dressing CDI with old drainage and peco drain present. Guzman intact and draining clear yellow
urine, I/Os charted. Bloodwork obtained this AM, midline present in RUE but does not give blood return. All needs met at this time, call soto within reach.
~2665-2422: Patient OOB in chair. Weight obtained. at bedside. VSS and B/L groin sites remain soft. Guzman with yellow concentrated urine at this time, I/Os charted. Patient worked with PT and appeared to tolerate well, he also performed stairs.
Per patient he feels comfortable to go home with home PT. DC orders in. Guzman removed per urology. Patient to return to straight cathing self at home. PIV and tele pack removed. Midline removed by VAT nurse as well. DC paperwork reviewed with
patient and , all questions answered to the best of my knowledge. VSS. Patient taken to lobby in stable condition via wheelchair.
--- NOTE | 2025-07-31 09:56 | W.HF.CON ---
Heart Failure
- LV Function
Left ventricular function study result: LV Ejection fraction 36-40%
Ejection Fraction Percentage: 40
- ARNI
Patient already on ARNI: No
Heart Failure ARNI Contraindication: Hypotension
- ACEI/ARB
Patient already on ACEI/ARB: Yes
- Beta Robbie
Patient already on Evidence Based Beta Robbie: Yes
- Mineralocorticord Receptor Antagonist
Patient already on MRA: No
Heart Failure MRA Contraindication: Hypotension
- SGLT-2 Inhibitor
Patient already on SGLT-2 Inhibitor: No
Heart Failure SGLT-2 Inhibitor Contraindication: Patient Refusal (Urinary retention, hua, straight cath at home)
- Afib Anticoagulation
Patient already on Anticoagulation for Afib: Yes
- NYHA CHF Classification
NYHA CHF Classification Level: Class III - Symptoms w/ min exertion, interferes w/ nml daily activity
- ACC/AHA Stage
ACC/AHA Stage: Stage C: Symptomatic Heart Failure
== END 2025-07-28 17:30 | disposition home health service (06) | DRG 215 ==
LOC: IVU 09:10
PROVIDERS: Clinical Nurse Specialist Acute Care; Internal Medicine; Internal Medicine Cardiovascular Disease; Nurse Practitioner; Nurse Practitioner Adult Health; Nurse Practitioner Family; Nurse Practitioner Primary Care; Physician Assistant Medical; Student in an Organized Health Care Education/Training Program; Surgery Vascular Surgery; ADMITTING PHYSICIAN Family Medicine; ATTENDING PHYSICIAN Hospitalist; CONSULT PHYSICIAN Internal Medicine Cardiovascular Disease; CONSULT PHYSICIAN Internal Medicine Critical Care Medicine; CONSULT PHYSICIAN Specialist; CONSULT PHYSICIAN Thoracic Surgery (Cardiothoracic Vascular Surgery); EMERGENCY PHYSICIAN Emergency Medicine; FAMILY PHYSICIAN Internal Medicine; OTHER PHYSICIAN Psychiatry & Neurology Neurology
PROC: 4A023N7 Measurement of Cardiac Sampling and Pressure, Left Heart, Percutaneous Approach (ICD-10-PCS; 2025-07-17)
PROC: B2111ZZ Fluoroscopy of Multiple Coronary Arteries using Low Osmolar Contrast (ICD-10-PCS; 2025-07-17)
PROC: 4A023FZ Measurement of Cardiac Rhythm, Percutaneous Approach (ICD-10-PCS; 2025-07-20)
PROC: 4A0234Z Measurement of Cardiac Electrical Activity, Percutaneous Approach (ICD-10-PCS; 2025-07-20)
PROC: 02K83ZZ Map Conduction Mechanism, Percutaneous Approach (ICD-10-PCS; 2025-07-20)
PROC: 02583ZZ Destruction of Conduction Mechanism, Percutaneous Approach (ICD-10-PCS; 2025-07-20)
PROC: 03HY32Z Insertion of Monitoring Device into Upper Artery, Percutaneous Approach (ICD-10-PCS; 2025-07-24)
PROC: 30233N1 Transfusion of Nonautologous Red Blood Cells into Peripheral Vein, Percutaneous Approach (ICD-10-PCS; 2025-07-24)
PROC: 02F03ZZ Fragmentation in Coronary Artery, One Artery, Percutaneous Approach (ICD-10-PCS; 2025-07-24)
PROC: 5A0221D Assistance with Cardiac Output using Impeller Pump, Continuous (ICD-10-PCS; 2025-07-24)
PROC: 027035Z Dilation of Coronary Artery, One Artery with Two Drug-eluting Intraluminal Devices, Percutaneous Approach (ICD-10-PCS; 2025-07-24)
PROC: 02C03Z7 Extirpation of Matter from Coronary Artery, One Artery, Orbital Atherectomy Technique, Percutaneous Approach (ICD-10-PCS; 2025-07-24)
PROC: 02HA3RZ Insertion of Short-term External Heart Assist System into Heart, Percutaneous Approach (ICD-10-PCS; 2025-07-24)
PROC: 5A1223Z Performance of Cardiac Pacing, Continuous (ICD-10-PCS; 2025-07-24)
PROC: B41D1ZZ Fluoroscopy of Aorta and Bilateral Lower Extremity Arteries using Low Osmolar Contrast (ICD-10-PCS; 2025-07-24)
PROC: 04UL0JZ Supplement Left Femoral Artery with Synthetic Substitute, Open Approach (ICD-10-PCS; 2025-07-25)
PROC: 02PA3RZ Removal of Short-term External Heart Assist System from Heart, Percutaneous Approach (ICD-10-PCS; 2025-07-25)
PROC: 04CL3ZZ Extirpation of Matter from Left Femoral Artery, Percutaneous Approach (ICD-10-PCS; 2025-07-25)
PROC: 04CN3ZZ Extirpation of Matter from Left Popliteal Artery, Percutaneous Approach (ICD-10-PCS; 2025-07-25)
DX: I48.3 Typical atrial flutter (principal); E10.10 Type 1 diabetes mellitus with ketoacidosis without coma; I21.4 Non-ST elevation (NSTEMI) myocardial infarction; G93.41 Metabolic encephalopathy; I50.23 Acute on chronic systolic (congestive) heart failure; R57.0 Cardiogenic shock; J96.01 Acute respiratory failure with hypoxia; I77.77 Dissection of artery of lower extremity; I63.233 Cerebral infarction due to unspecified occlusion or stenosis of bilateral carotid arteries; N39.0 Urinary tract infection, site not specified; D62 Acute posthemorrhagic anemia; N17.9 Acute kidney failure, unspecified; L76.32 Postprocedural hematoma of skin and subcutaneous tissue following other procedure; I74.3 Embolism and thrombosis of arteries of the lower extremities; I97.51 Accidental puncture and laceration of a circulatory system organ or structure during a circulatory system procedure; E87.1 Hypo-osmolality and hyponatremia; B95.2 Enterococcus as the cause of diseases classified elsewhere; I16.0 Hypertensive urgency; I70.222 Atherosclerosis of native arteries of extremities with rest pain, left leg; E10.51 Type 1 diabetes mellitus with diabetic peripheral angiopathy without gangrene; I11.0 Hypertensive heart disease with heart failure; I25.10 Atherosclerotic heart disease of native coronary artery without angina pectoris; I25.5 Ischemic cardiomyopathy; R33.8 Other retention of urine; R47.81 Slurred speech; R29.810 Facial weakness; I48.0 Paroxysmal atrial fibrillation; I47.10 Supraventricular tachycardia, unspecified; Y84.0 Cardiac catheterization as the cause of abnormal reaction of the patient, or of later complication, without mention of misadventure at the time of the procedure; I35.0 Nonrheumatic aortic (valve) stenosis; J44.9 Chronic obstructive pulmonary disease, unspecified; E78.00 Pure hypercholesterolemia, unspecified; K21.9 Gastro-esophageal reflux disease without esophagitis; R10.12 Left upper quadrant pain; W19.XXXA Unspecified fall, initial encounter; R29.703 NIHSS score 3; N40.1 Benign prostatic hyperplasia with lower urinary tract symptoms; F10.10 Alcohol abuse, uncomplicated; R29.6 Repeated falls; F17.210 Nicotine dependence, cigarettes, uncomplicated; N31.9 Neuromuscular dysfunction of bladder, unspecified; Z11.52 Encounter for screening for COVID-19; Z86.73 Personal history of transient ischemic attack (TIA), and cerebral infarction without residual deficits; Z87.11 Personal history of peptic ulcer disease; Z79.4 Long term (current) use of insulin; Z79.02 Long term (current) use of antithrombotics/antiplatelets
CPT/HCPCS: 0042T; 33990; 33992; 35661; 70450; 70496; 70498; 71045; 71046; 71250; 74018; 74176; 80048; 80053; 80061; 81003; 81015; 82010; 82040; 82077; 82150; 82248; 82330; 82805; 82947; 82962; 83036; 83605; 83615; 83735; 83880; 84100; 84132; 84443; 84484; 85014; 85018; 85025; 85027; 85347; 85379; 85384; 85610; 85730; 86850; 86900; 86901; 86920; 87040; 87077; 87086; 87186; 87502; 87811; 88304; 92526; 92610; 92972; 93005; 93308; 93321; 93325; 93454; 93458; 93653; 93931; 93970; 96365; 96366; 96375; 97116; 97162; 97166; 97168; 97530; 97535; 97761; 99152; 99153; 99291; 99406; C1724; C1725; C1730; C1732; C1757; C1760; C1761; C1766; C1768; C1769; C1874; C1892; C1894; C9602; G0278; J0282; P9016; P9045; Q9967

== ENCOUNTER 2025-08-28 08:33 | Emergency (ER) | payer MEDICARE, SELFPAY ==
[2025-08-28 08:37] VITALS: BP 109/61
--- NOTE | 2025-08-28 09:09 | ED.GENMED ---
History of Present Illness
General
Chief Complaint: Swelling
Time Seen by Provider: 08/28/25 08:52
History of Present Illness
History of Present Illness:
75-year-old male with history of A-fib, insulin-dependent diabetes, and HFrEF presents to the emergency department for evaluation of left lower jaw swelling. Has been ongoing for the past week. He is generally poor dental health and had previously
been under the care of a dentist with plan for numerous teeth extractions, this was delayed due to hospitalization in late June to early July due to new onset A-fib with cardiogenic shock requiring coronary interventions. That hospital stay
was also complicated by Enterococcus UTI that was treated with IV antibiotics and eventually transition to Augmentin. He denies any current fevers or chills. No difficulty swallowing and no voice changes.
Past History
Past History
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
ED Past Surgical History: Orthopedic (right heel fracture 2009), Tonsilectomy and Urological
Social History
Tobacco: Smoker
Alcohol: Daily
Drug: None
Personal:
Living: with family
Family History
Family History: Other (reviewed and noncontributory)
Review of Systems
Review of Systems
Allergies reviewed?: Yes
All Other Systems: ROS reviewed and negative except as documented in HPI and ROS
Phy Exam
Physical Exam
Physical Exam:
GEN: Well appearing, NAD, WDWN
HEENT: Oral mucosa moist, no scleral icterus, numerous dental caries, diffuse gingival swelling across the anterior lateral left buccal mucosa, no trismus, palpable submandibular adenopathy on the left, no tonsillar or superior cervical adenopathy
Cardiac: Regular rate
Lung: No respiratory distress, no tachypnea
MSK: No gross deformity or injuries
Skin: Good color, no pallor or jaundice, no rashes
Neuro: AO x3, moves all extremities freely
Psych: Calm, cooperative
Scores
Heart Failure Risk
Heart Failure Risk Score: Not Applicable
Course
Orders/Labs/Results
Orders:
Orders
08/28/25 09:15
Clindamycin HCl [Cleocin] 300 mg PO NOW STA
Vital Signs
Initial and Last Documented VS:
Initial Vital Signs
Temp Pulse Resp BP Pulse Ox
97.4 F 86 16 109/61 98
08/28/25 08:37 08/28/25 08:37 08/28/25 08:37 08/28/25 08:37 08/28/25 08:37
Last Documented Vital Signs
Temp Pulse Resp BP Pulse Ox
97.4 F 86 16 109/61 98
08/28/25 08:37 08/28/25 08:37 08/28/25 08:37 08/28/25 08:37 08/28/25 09:13
MDM/Problems Addressed
MDM/Problems Addressed:
Patient is clinically well, no trismus concern for deep space infection. Will start him on clindamycin, recommend he follow-up with his dentist for definitive tooth extraction. Given that he is anticoagulated do not see that it is appropriate to
attempt I&D of the gingival swelling particularly as there is no pointing abscess at this time
*Pulse Oximetry
SaO2: 98
Oxygen Mode of Delivery: Room air
Patient hypoxic: no
*Critical Care Note
Total Time (30-74mins, 75-104mins- exclusive of procedures): Not Applicable
ED Attending Note
-
Portions of this chart may have been created with voice recognition software.� Occasional wrong word or��sound alike� substitutions may have occurred due to the inherent limitations of voice recognition software.
Discharge Plan
Departure
Patient Disposition: Home (Routine Discharge)
Date of Disposition: 08/28/25
Time of Disposition: 09:13
Patient with high blood pressure during this ER visit?: No
Discharge Problem:
Dental abscess
Instructions: Dental abscess - ED (DC)
Prescriptions:
New
clindamycin HCl [Cleocin HCl] 300 mg capsule
300 mg PO Q6H 7 Days Qty: 28 0RF
No Action
clopidogrel 75 MG tablet
75 mg PO DAILY
atorvastatin 80 mg Tablet
80 mg PO QPM
ezetimibe 10 mg Tablet
10 mg PO DAILY
Patient Comments:
01/30/2024, pt. unsure if he is taking this med. or not; filled on 01/05/2024 for a 30-day supply.
tamsulosin 0.4 mg Capsule
0.4 mg PO DAILY
finasteride 5 mg Tablet
5 mg PO DAILY
enalapril maleate 5 mg tablet
5 mg PO BID
sucralfate 100 mg/mL Suspension
1 g PO ACHS Qty: 1000 0RF
pantoprazole 40 mg Tablet,Delayed Release (Dr/Ec)
See Rx Instructions .ROUTE .COMPLEX Qty: 90 1RF
Rx Instructions:
40 mg BID for 1 month, followed by 40 mg daily
furosemide 40 mg Tablet
40 mg PO DAILY 30 Days Qty: 30 0RF
nicotine 21 mg/24 hr Patch 24 Hour
21 mg transdermal DAILY Qty: 7 0RF
metoprolol succinate 25 mg Tablet Extended Release 24 Hr
12.5 mg PO DAILY 30 Days Qty: 15 0RF
amoxicillin-pot clavulanate 875-125 mg Tablet
1 tab PO Q12 10 Days Qty: 20 0RF
Eliquis 5 mg Tablet
5 mg PO BID 30 Days Qty: 60 0RF
sennosides 8.6 mg tablet
8.6 mg PO BID Qty: 14 0RF
oxycodone 5 mg capsule
5 mg PO Q8H PRN (Reason: severe pain) Qty: 14 0RF
insulin glargine [Lantus U-100 Insulin] 100 unit/mL solution
15 unit SC DAILY Qty: 10 0RF
insulin aspart U-100 100 unit/mL (3 mL) insulin pen
3 unit SC TID Qty: 15 0RF
(DME) pen needle, diabetic [Yuly 2nd Gen Pen Needle] 32 gauge x 5/32' Needle
Qty: 200 0RF
Rx Instructions:
Pt taking insulin 4 times a day
Activity Restrictions/Additional Instructions:
Call your dentist for follow up appointment this morning
Please do not take your Eliquis for 48 hours prior to your dental appointment; if you make an appointment sooner than this, do not take Eliquis until the appointment. You may restart the Eliquis after the appointment
Continue your plavix
If you develop a fever, worsening swelling, or difficulty opening the jaw, return to the ER, especially if you cannot see your dentist this week
Interventions
Interventions:
*Risk Screen - Suicide Last Done: 08/28/25 08:39
*Nursing Disposition Last Done: 08/28/25 09:45
ED-Skin Assessment Last Done: 08/28/25 09:44
ED- Pulmonary Assessment Last Done: 08/28/25 09:44
ED- Cardiac Assessment Last Done: 08/28/25 09:44
Discharge Date and Time
Discharge Date/Time: 08/28/25 09:45
Print Language: BARBADIAN
[2025-08-28] MEDS: CLEOCIN 300 MG PO (09:42)
== END 2025-08-28 09:45 | disposition home or self-care (01) ==
LOC: EMR 08:33
PROVIDERS: EMERGENCY PHYSICIAN Emergency Medicine; FAMILY PHYSICIAN Internal Medicine
DX: K04.7 Periapical abscess without sinus (principal); E10.9 Type 1 diabetes mellitus without complications; I48.91 Unspecified atrial fibrillation; I11.0 Hypertensive heart disease with heart failure; I50.22 Chronic systolic (congestive) heart failure; E78.00 Pure hypercholesterolemia, unspecified; K21.9 Gastro-esophageal reflux disease without esophagitis; K27.9 Peptic ulcer, site unspecified, unspecified as acute or chronic, without hemorrhage or perforation; F17.200 Nicotine dependence, unspecified, uncomplicated; Z79.01 Long term (current) use of anticoagulants; Z79.02 Long term (current) use of antithrombotics/antiplatelets; Z79.4 Long term (current) use of insulin; Z86.73 Personal history of transient ischemic attack (TIA), and cerebral infarction without residual deficits
CPT/HCPCS: 99283

== ENCOUNTER → 2025-08-29 10:59 | Outpatient (REF) | payer MEDICARE, SELFPAY | LOC: RAD 10:59 | PROVIDERS: ATTENDING PHYSICIAN Physician Assistant; FAMILY PHYSICIAN Internal Medicine | DX: I73.9 Peripheral vascular disease, unspecified (principal) | CPT/HCPCS: 93922; 93925 ==

== ENCOUNTER → 2025-08-30 17:04 | Outpatient (REF) | payer MEDICARE, SELFPAY | LOC: MRI 17:04 | PROVIDERS: ATTENDING PHYSICIAN Physician Assistant; FAMILY PHYSICIAN Internal Medicine | DX: R29.810 Facial weakness (principal) | CPT/HCPCS: 70551 ==

== ENCOUNTER 2025-09-08 15:32 | Outpatient (RCR) | payer MEDICARE, SELFPAY ==
[2025-08-25 11:17] LABS: Glucose - Point of Care 287 mg/dl (70-99)
[2025-08-25 11:50] LABS: Glucose - Point of Care 264 mg/dl (70-99)
[2025-09-04 14:52] LABS: Glucose - Point of Care 353 mg/dl (70-99)
[2025-09-04 15:08] LABS: Glucose - Point of Care 298 mg/dl (70-99)
[2025-09-04 15:52] LABS: Glucose - Point of Care 282 mg/dl (70-99)
[2025-09-06 14:57] LABS: Glucose - Point of Care 262 mg/dl (70-99)
[2025-09-06 15:53] LABS: Glucose - Point of Care 288 mg/dl (70-99)
[2025-09-08 15:02] LABS: Glucose - Point of Care 135 mg/dl (70-99)
[2025-09-08 15:22] LABS: Glucose - Point of Care 126 mg/dl (70-99)
[2025-09-08 15:53] LABS: Glucose - Point of Care 132 mg/dl (70-99)
== END 2025-09-08 23:59 | disposition home or self-care (01) ==
LOC: CRHB 15:32
PROVIDERS: ATTENDING PHYSICIAN Internal Medicine Cardiovascular Disease
DX: I25.10 Atherosclerotic heart disease of native coronary artery without angina pectoris (principal); Z95.5 Presence of coronary angioplasty implant and graft
CPT/HCPCS: 82962; G0422; G0423